=== PATIENT | male | born 1975 | race Caucasian/White ===

== ENCOUNTER 2016-11-27 23:44 | Inpatient (IN) | payer MEDICAID, OTHER ==
[~2016-11-27] VITALS: Ht 180.3 cm; Wt 63.2 kg
[~2016-11-27 23:44] MED LIST: COLL30OI3 TOP; DRON2.5 PO; ERGO50000 PO; IBUP800 PO; KPHOSO PO; MEGE40TA PO; THERM PO; THIA100T PO; ZOFR4TAB PO
[2016-11-27 23:48] VITALS: BP 113/58; PULSE 101; RESP 18; TEMP 96.3; O2SAT 100
[2016-11-27] MEDS ORDERED: SODIUM CHLOR 0.9% 1000 ML INJ 1,000 ML IV SCH (23:51)
[2016-11-28] VITALS (13 sets, daily range): BP systolic 83–136; BP diastolic 57–71; PULSE 90–112; RESP 18–26; TEMP 98.4–99.2; O2SAT 93–100
[2016-11-28] MEDS ORDERED: THIAMINE INJ 100 MG in SODIUM CHLORIDE 0.9% INJ 100 ML IV ONE ×2
[2016-11-28] MEDS ORDERED: METF500T PO (00:03)
[2016-11-28] MEDS ORDERED: ZOFR4TAB PO (00:03)
--- NOTE | 2016-11-28 00:05 | PD ---
HPI Chief Complaint: General Weakness Time Seen by Provider: 23:51 Travel History International Travel<30 days: No Contact w/Intl Traveler<30days: No Traveled to known affect area: No History of Present Illness HPI 41-year-old male arrives to the ER by EMS. Mother reports pt has been forgetful for 3 days both long and short-term. Mother reports the patient has not been eating food and not taking medications. He attempted to stand shortly prior to arrival and felt prompting EMS activation. In the ER he complains of generalized abdominal pain as well as pain in the hips. Pain is constant and worse with palpation. Mother denies illicit drug use at home. PFSH Past Medical History Arthritis: Yes Asthma: No Autoimmune Disease: No Blood Disorders: No Anxiety: No Depression: Yes Heart Rhythm Problems: No Cancer: No Cardiovascular Problems: Yes High Cholesterol: Yes Chemotherapy: No Chest Pain: Yes Congestive Heart Failure: Yes COPD: No Cerebrovascular Accident: No Diabetes: Yes Patient Takes Glucophage: No Diminished Hearing: No Endocrine: Yes Fibromyalgia: Yes Gastrointestinal Disorders: Yes GERD: Yes Gout: Yes Genitourinary: Yes Headaches: No Hepatitis: Yes Hiatal Hernia: No Hypertension: Yes Immune Disorder: No Implanted Vascular Access Dvce: Yes Kidney Stones: Yes (removed) Medical other: Yes (anorexia) Musculoskeletal: Yes Neurologic: Yes Psychiatric: Yes Reproductive: Yes (vasectomy) Respiratory: Yes Immunizations Current: Yes Migraines: No Radiation Therapy: No Renal Failure: No Seizures: No Sickle Cell Disease: No Sleep Apnea: No Thyroid Disease: No Ulcer: No Past Surgical History Abdominal Surgery: Yes (RIGHT NEPHROLITHOTRIPSY, J TUBE ) AICD: No Arteriovenous Shunt: No Body Medical Devices: LEFT HIP SURGERY Cardiac Surgery: No Ear Surgery: No Endocrine Surgery: No Eye Surgery: No Genitourinary Surgery: Yes (VASECTOMY) Gynecologic Surgery: No Insulin Pump: No Joint Replacement: Yes (LEFT HIP CURTIS/PIN) Neurologic Surgery: No Oral Surgery: No Pacemaker: No Thoracic Surgery: No Other Surgery: Yes (previously had peg tube) Social History Alcohol Use: Yes (occassionally) Tobacco Use: No Substance Use: Yes (cocaine) Allergies-Medications (Allergen,Severity, Reaction): Coded Allergies: No Known Allergies (Verified , 04/11/16) Reported Meds & Prescriptions Reported Meds & Active Scripts Active Reported Zofran (Ondansetron HCl) 4 Mg Tab 4 Mg PO Q6HR PRN Metformin (Metformin HCl) 500 Mg Tab 500 Mg PO BIDPC With meals Review of Systems Except as stated in HPI: all other systems reviewed are Neg Physical Exam Narrative GENERAL: 41 yo M, thin/cachectic, AOx3 SKIN: Warm and dry. HEAD: Atraumatic. Normocephalic. EYES: Pupils equal and round. No scleral icterus. No injection or drainage. ENT: No nasal bleeding or discharge. Mucous membranes pink and moist. Dried blood in the mustache. NECK: Trachea midline. No JVD. CARDIOVASCULAR: Regular rate and rhythm. No murmur appreciated. RESPIRATORY: No accessory muscle use. Clear to auscultation. Breath sounds equal bilaterally. GASTROINTESTINAL: Depends with liquid stool. Some dry stool along the legs. Generalized abdominal tenderness. No distension or guarding. MUSCULOSKELETAL: Generalized atrophy about the extremities. No gross deformity. NEUROLOGICAL: Awake and alert. No obvious cranial nerve deficits. Motor grossly within normal limits. Normal speech. PSYCHIATRIC: Flat affect. Cachectic. Data Data Last Documented VS Vital Signs Date Time Temp Pulse Resp B/P Pulse Ox O2 Delivery O2 Flow Rate FiO2 11/28/16 02:34 90 26 83/57 100 Nasal Cannula 2 11/27/16 23:48 96.3 Orders Complete Blood Count With Diff (11/27/16 23:51) Comprehensive Metabolic Panel (11/27/16 23:51) Urinalysis - C+S If Indicated (11/27/16 23:51) Blood Glucose (11/27/16 23:51) Ecg Monitoring (11/27/16 23:51) Iv Access Insert/Monitor (11/27/16 23:51) Oximetry (11/27/16 23:51) Sodium Chloride 0.9% Flush (Ns Flush) (11/28/16 00:00) Sodium Chlor 0.9% 1000 Ml Inj (Ns 1000 M (11/27/16 23:51) Thiamine Inj (Thiamine Inj) (11/28/16 00:00) C Diff Toxin Pcr (11/27/16 23:51) Insert Rectal Tube (11/28/16 00:51) Sodium Chlor 0.9% 1000 Ml Inj (Ns 1000 M (11/28/16 01:00) Ciprofloxacin 400 Mg Premix (Cipro 400 M (11/28/16 01:00) Metronidazole 500 Mg Inj (Flagyl 500 Mg (11/28/16 01:00) Drug Screen, Random Urine (11/28/16 00:52) Lactic Acid (11/28/16 00:52) Blood Culture (11/28/16 00:52) Creatine Kinase (Cpk) (11/28/16 00:54) Ct Abd/Pel W/O Iv Contrast (11/28/16 00:54) Blood Product Administration .UPON TRANSFUSION (11/28/16 01:21) Urinary Catheter Insert/Apply (11/28/16 01:52) Troponin I (11/28/16 02:42) Electrocardiogram (11/28/16 ) Cefepime Inj (Maxipime Inj) (11/28/16 03:01) Norepinephrine-Dextrose Drip (Levophed-D (11/28/16 03:15) Chest, Single Ap (11/28/16 ) Admit Order (Ed Use Only) (11/28/16 03:36) Labs Laboratory Tests Test 11/28/16 11/28/16 11/28/16 11/28/16 00:10 00:25 01:07 02:05 White Blood Count 10.6 TH/MM3 Red Blood Count 2.70 MIL/MM3 Hemoglobin 7.5 GM/DL Hematocrit 22.1 % Mean Corpuscular Volume 81.7 FL Mean Corpuscular Hemoglobin 27.9 PG Mean Corpuscular Hemoglobin 34.2 % Concent Red Cell Distribution Width 14.3 % Platelet Count 141 TH/MM3 Mean Platelet Volume 9.0 FL Neutrophils (%) (Auto) 77.3 % Lymphocytes (%) (Auto) 19.2 % Monocytes (%) (Auto) 2.1 % Eosinophils (%) (Auto) 0.6 % Basophils (%) (Auto) 0.8 % Neutrophils # (Auto) 8.2 TH/MM3 Lymphocytes # (Auto) 2.0 TH/MM3 Monocytes # (Auto) 0.2 TH/MM3 Eosinophils # (Auto) 0.1 TH/MM3 Basophils # (Auto) 0.1 TH/MM3 CBC Comment DIFF FINAL Differential Comment Sodium Level 128 MEQ/L Potassium Level 4.2 MEQ/L Chloride Level 96 MEQ/L Carbon Dioxide Level 15.6 MEQ/L Anion Gap 16 MEQ/L Blood Urea Nitrogen 20 MG/DL Creatinine 1.55 MG/DL Estimat Glomerular Filtration 49 ML/MIN Rate Random Glucose 204 MG/DL Calcium Level 8.0 MG/DL Total Bilirubin 1.0 MG/DL Aspartate Amino Transf 15 U/L (AST/SGOT) Alanine Aminotransferase 10 U/L (ALT/SGPT) Alkaline Phosphatase 124 U/L Total Protein 6.3 GM/DL Albumin 2.8 GM/DL Stool C. difficile Toxin (PCR) NEGATIVE Stl C. difficile Toxin PRESUMPTIVE Epiderm 027 NEGATIVE Lactic Acid Level 4.8 mmol/L Urine Color ORANGE Urine Turbidity CLEAR Urine pH 5.5 Urine Specific [place] 1.019 Urine Protein 30 mg/dL Urine Glucose (UA) TRACE mg/dL Urine Ketones NEG mg/dL Urine Occult Blood NEG Urine Nitrite NEG Urine Bilirubin NEG Urine Urobilinogen 4.0 MG/DL Urine Leukocyte Esterase NEG Urine WBC 2 /hpf Urine Hyaline Casts 17 /lpf Urine Granular Casts 4 /lpf Urine Mucus FEW /lpf Microscopic Urinalysis Comment CATH-CULT NOT IND Urine Opiates Screen POS Urine Barbiturates Screen NEG Urine Amphetamines Screen NEG Urine Benzodiazepines Screen NEG Urine Cocaine Screen POS Urine Cannabinoids Screen POS Test 11/28/16 03:15 Total Creatine Kinase 111 U/L MDM Medical Decision Making Medical Screen Exam Complete: Yes Emergency Medical Condition: Yes Differential Diagnosis Sepsis, severe sepsis, failure to thrive, coronary disease, anemia, PSA Narrative Course CBC & BMP Diagram 11/28/16 00:10 Lactic acid 4.8 Total CK 111 Albumin 2.8 AG 16 Tox +cannbinoids/opioids/cocaine Stool C diff negative EKG sinus rate 90, artifact present Last 24 hours Impressions Abdomen/Pelvis CT 11/28/16 0054 Signed Impressions: Service Date/Time: Monday, November 28, 2016 01:47 - CONCLUSION: Severe constipation. No acute CT findings. Kan Lyons MD Chest X-Ray 11/28/16 0000 Signed Impressions: Service Date/Time: Monday, November 28, 2016 03:24 - CONCLUSION: No acute disease. Kan Lyons MD A flexi-seal rectal tube was placed. Patient received 4 L crystalloid. 83/57 with HR 90 and RR 26, 100% on NC. Levophed started. Cefepime added to cipro/ flagyl. Temp 96.3 Jared hugger started. Case d/w Dr Loyola for [employer] Service. Critical Care Narrative Aggregate critical care time was 45 minutes. Time to perform other separately billable procedures was not included in the critical care time. My time did not include minutes spent treating any other patients simultaneously or on activities that did not directly contribute to the patient's treatment. The services I provided to this patient were to treat and/or prevent clinically significant deterioration that could result in: Cardiopulmonary arrest, multiorgan dysfunction I provided critical care services requiring my management, as noted below: Chart data review, documentation time, medication orders and management, vital sign assessments/reviewing monitor data, ordering and reviewing lab tests, ordering and interpreting/reviewing x-rays and diagnostic studies, care of the patient and discussion of the patient with the admitting physicians. Sepsis Criteria SIRS Criteria (2 or more): Temp > 100.9 or < 96.8, Heart rate over 90 Sepsis Criteria (SIRS+source): Infect source susp/known Severe Sepsis (+one): Lactate >2 Septic Shock Criteria: Lactic acid >=4 Diagnosis Primary Impression: Septic shock Additional Impressions: Cocaine abuse Polysubstance abuse Diarrhea Qualified Code: A09 - Diarrhea of presumed infectious origin Admitting Information Admitting Physician Requests: Admit Rocael Covington MD Nov 28, 2016 00:05
[2016-11-28] MEDS: SODIUM CHLORIDE 0.9% FLUSH 5 ML FLUSH IVF PRN ×2 (00:30→01:19)
[2016-11-28 00:40] LABS: AUTOMATED NEUTROPHIL # 8.2 TH/MM3 (1.8-7.7); BASOPHIL # 0.1 TH/MM3 (0-0.2); BASOPHIL % 0.8 % (0.0-2.0); EOSINOPHIL # 0.1 TH/MM3 (0-0.4); EOSINOPHIL % 0.6 % (0.0-4.0); HEMATOCRIT 22.1 % (39.0-51.0); HEMO FLAGS DIFF FINAL; LYMPH % 19.2 % (9.0-44.0); MEAN CELL VOLUME 81.7 FL (80.0-100.0); MEAN CORPUSCULAR HEMOGLOBIN 27.9 PG (27.0-34.0); MEAN CORPUSCULAR HGB CONC 34.2 % (32.0-36.0); MONO % 2.1 % (0.0-8.0); NEUT % 77.3 % (16.0-70.0); PLATELET COUNT 141 TH/MM3 (150-450); RED CELL DISTRIBUTION WIDTH 14.3 % (11.6-17.2); WHITE BLOOD COUNT 10.6 TH/MM3 (4.0-11.0)
[2016-11-28 00:52] LABS: ALT (GPT) 10 U/L (12-78); ANION GAP 16 MEQ/L (5-15); AST (GOT) 15 U/L (15-37); BICARBONATE 15.6 MEQ/L (21.0-32.0); BLOOD UREA NITROGEN 20 MG/DL (7-18); CHLORIDE 96 MEQ/L (98-107); GLOMERULAR FILTRATION RATE 49 ML/MIN (>89); POTASSIUM 4.2 MEQ/L (3.5-5.1); SODIUM (NA) 128 MEQ/L (136-145)
[2016-11-28 00:54] LABS: ALKALINE PHOSPHATASE 124 U/L (45-117)
[2016-11-28] MEDS ORDERED: metroNIDAZOLE 500 MG INJ 100 ML IV ONE (01:00)
[2016-11-28] MEDS ORDERED: CIPROFLOXACIN 400 MG PREMIX 200 ML IV ONE (01:00)
[2016-11-28] MEDS ORDERED: SODIUM CHLOR 0.9% 1000 ML INJ 1,000 ML IV ONE (01:00)
[2016-11-28 01:57] LABS: C. DIFF EPI 027 PRESUMPTIVE NEGATIVE (NEGATIVE); C. DIFF TOXIN PCR NEGATIVE (NEGATIVE)
[2016-11-28 02:20] LABS: AMPHETAMINE, URINE NEG (NEG); BARBITURATES, URINE NEG (NEG); COCAINE, URINE POS (NEG)
--- NOTE | 2016-11-28 02:21 | RADRPT ---
EXAM DATE/TIME: 11/28/2016 01:47 [facility] COMPARISON: CT ABDOMEN & PELVIS W CONTRAST, March 04, 2016, 12:20. INDICATIONS : Generalized weakness and weight loss. ORAL CONTRAST: No oral contrast ingested. RADIATION DOSE: 7.25 CTDIvol (mGy) MEDICAL HISTORY : Cardiovascular disease. Congestive heart failure. Diabetes mellitus type 2. SURGICAL HISTORY : Left hip. Peg tube. Right lithotripsy. Vasectomy. ENCOUNTER: Initial ACUITY: 1 day PAIN SCALE: 6/10 LOCATION: Diffuse abdomen TECHNIQUE: Volumetric scanning of the abdomen and pelvis was performed. Using automated exposure control and ad justment of the mA and/or kV according to patient size, radiation dose was kept as low as reasonably achievable to obtain optimal diagnostic quality images. FINDINGS: LOWER LUNGS: The visualized lower lungs are clear. LIVER: Homogeneous density without lesion. There is no dilation of the biliary tree. No calcified gallston es. SPLEEN: Normal size without lesion. PANCREAS: Within normal limits. KIDNEYS: Normal in size and shape. There is no mass, stone, or hydronephrosis. ADRENAL GLANDS: Within normal limits. VASCULAR: There is no aortic aneurysm. BOWEL/MESENTERY: The majority of the distal colon is distended with formed stool. There is nonspecific induration in t he paracolic fatty tissues. The small bowel is nondilated. ABDOMINAL WALL: Within normal limits. RETROPERITONEUM: There is no lymphadenopathy. BLADDER: No wall thickening or mass. REPRODUCTIVE: Within normal limits. INGUINAL: There is no lymphadenopathy or hernia. MUSCULOSKELETAL: Stable CONCLUSION: Severe constipation. No acute CT findings. Kan Lyons MD on November 28, 2016 at 2:13 Board Certified Radiologist. This report was verified electronically.
[2016-11-28 02:23] LABS: BLOOD, URINE NEG (NEG); COMMENT (UR) CATH-CULT NOT IND; CULTURE IF INDICATED CATH CULTURE NOT IND; GLUCOSE,URINE TRACE mg/dL (NEG); GRANULAR CAST, URINE 4 /lpf; HYALINE CAST, URINE 17 /lpf (RARE); KETONE, URINE NEG (NEG); MUCUS URINE FEW /lpf (OCC); NITRITE,URINE NEG (NEG); PH, URINE 5.5 (5.0-8.5); URINE COLOR ORANGE (YELLW/STRAW)
[2016-11-28] MEDS ORDERED: CEFEPIME INJ 2,000 MG in SODIUM CHLORIDE 0.9% INJ 100 ML IV STA (03:01)
[2016-11-28] MEDS: NOREPINEPHRINE-DEXTROSE DRIP 250 ML IV SCH (03:34)
--- NOTE | 2016-11-28 03:47 | RADRPT ---
EXAM DATE/TIME: 11/28/2016 03:24 [facility] COMPARISON: CHEST SINGLE AP, March 08, 2016, 7:40. INDICATIONS : Shortness of breath. MEDICAL HISTORY : Cardiovascular disease. Congestive heart failure. Diabetes mellitus type II. SURGICAL HISTORY : None. ENCOUNTER: Initial ACUITY: 1 day PAIN SCORE: Non-responsive. LOCATION: Bilateral chest FINDINGS: A single view of the chest demonstrates the lungs to be symmetrically aerated without evidence of mas s, infiltrate or effusion. The cardiomediastinal contours are unremarkable. Osseous structures are intact. CONCLUSION: No acute disease. Kan Lyons MD on November 28, 2016 at 3:44 Board Certified Radiologist. This report was verified electronically.
--- NOTE | 2016-11-28 04:29 | HHI.HP ---
HPI Service Critical Care Medicine Primary Care Physician No Primary Care Physician Admission Diagnosis PSA, Septic Shock Diagnosis: Chief Complaint: forgetfulness, fall Travel History International Travel<30 Days: No Contact w/Intl Traveler <30 Da: No Traveled to Known Affected Are: No History of Present Illness This is a 41-year-old male with a number of chronic medical problems including fibromyalgia, failure to thrive, who is brought in by EMS for falling, fatigue, altered mental status. His mother is with him and reports that over the last few days to even a week or 2, he has had both long-term and short-term memory loss. Mom states that he is not been eating or taking his medications. On arrival to the emergency department, he had 5 or 6 very large and very loose bowel movements which were brown in color. These percent off and tested negative for C. difficile DNA PCR. The patient was very tachycardic and hypotensive as well as hypothermic in the emergency department. He received 4 L of normal saline IV and was started on norepinephrine. His laboratory data is notable for a lactate of 4.8, sodium 128, chloride 96, bicarbonate 15, creatinine 1.55, hemoglobin of 7.5, white blood cell count of 10.5. His random cortisol is 47. Critical-care medicine's consult to evaluate and manage his presumed septic shock and multiorgan system dysfunction. Review of Systems ROS Limitations: Clinical Condition, Altered Mental Status Respiratory: DENIES: Cough, Shortness of breath Cardiovascular: DENIES: Chest pain Gastrointestinal: COMPLAINS OF: Diarrhea, DENIES: Abdominal pain, Nausea, Vomiting Past Family Social History Allergies: Coded Allergies: No Known Allergies (Verified , 04/11/16) Past Medical History Complete past medical history is unobtainable secondary to patient's clinical condition. Per chart review: Arthritis Coronary artery disease Hypercholesterolemia Congestive heart failure, unknown type Fibromyalgia GERD Gout Hepatitis Hypertension Kidney stones Anorexia Past Surgical History Complete past surgical history is unobtainable secondary to patient's clinical condition. Per chart review: Right nephrolithotripsy with J-tube placement Left hip surgery Vasectomy Previous PEG tube placement Reported Medications Zofran (Ondansetron HCl) 4 Mg Tab 4 Mg PO Q6HR PRN Metformin (Metformin HCl) 500 Mg Tab 500 Mg PO BIDPC With meals Active Ordered Medications See MAR Family History Unobtainable secondary to patient's clinical condition. Not likely to be contributory to his acute illness. Social History Complete social history is unobtainable secondary to patient's clinical condition. Per chart review: Occasional EtOH. Positive for cocaine. Physical Exam Vital Signs Vital Signs Date Time Temp Pulse Resp B/P Pulse Ox O2 Delivery O2 Flow Rate FiO2 11/28/16 03:51 102 18 103/61 100 Nasal Cannula 11/28/16 02:34 90 26 83/57 100 Nasal Cannula 2 11/27/16 23:48 96.3 101 18 113/58 100 Physical Exam GENERAL: Critically ill, cachectic middle-aged male, lying in bed HEENT:. Normocephalic. Atraumatic. Pupils equal, round and reactive. Mucous membranes are dry. NECK: Trachea is midline. There is no JVD. CHEST: Equal chest rise. Clear to auscultation. CARDIOVASCULAR: Tachycardic rate, regular rhythm. No appreciable murmurs. ABDOMEN: Scaphoid. There is a small healed scar subxiphoid from prior PEG tube placement. Otherwise, the abdomen is soft, nontender, nondistended. There is no guarding. No hepatosplenomegaly. MUSCULOSKELETAL: Distal pulses 2+. No pitting Edema. NEUROLOGICAL: RASS -1. Somnolent but arousable. Follows commands in all 4 extremities. Laboratory Laboratory Tests Test 11/28/16 11/28/16 11/28/16 11/28/16 00:10 00:25 01:07 02:05 White Blood Count 10.6 Red Blood Count 2.70 Hemoglobin 7.5 Hematocrit 22.1 Mean Corpuscular Volume 81.7 Mean Corpuscular Hemoglobin 27.9 Mean Corpuscular Hemoglobin 34.2 Concent Red Cell Distribution Width 14.3 Platelet Count 141 Mean Platelet Volume 9.0 Neutrophils (%) (Auto) 77.3 Lymphocytes (%) (Auto) 19.2 Monocytes (%) (Auto) 2.1 Eosinophils (%) (Auto) 0.6 Basophils (%) (Auto) 0.8 Neutrophils # (Auto) 8.2 Lymphocytes # (Auto) 2.0 Monocytes # (Auto) 0.2 Eosinophils # (Auto) 0.1 Basophils # (Auto) 0.1 CBC Comment DIFF FINAL Differential Comment Sodium Level 128 Potassium Level 4.2 Chloride Level 96 Carbon Dioxide Level 15.6 Anion Gap 16 Blood Urea Nitrogen 20 Creatinine 1.55 Estimat Glomerular Filtration 49 Rate Random Glucose 204 Calcium Level 8.0 Total Bilirubin 1.0 Aspartate Amino Transf 15 (AST/SGOT) Alanine Aminotransferase 10 (ALT/SGPT) Alkaline Phosphatase 124 Total Protein 6.3 Albumin 2.8 Stool C. difficile Toxin (PCR) NEGATIVE Stl C. difficile Toxin PRESUMPTIVE Epiderm 027 NEGATIVE Lactic Acid Level 4.8 Urine Color ORANGE Urine Turbidity CLEAR Urine pH 5.5 Urine Specific [place] 1.019 Urine Protein 30 Urine Glucose (UA) TRACE Urine Ketones NEG Urine Occult Blood NEG Urine Nitrite NEG Urine Bilirubin NEG Urine Urobilinogen 4.0 Urine Leukocyte Esterase NEG Urine WBC 2 Urine Hyaline Casts 17 Urine Granular Casts 4 Urine Mucus FEW Microscopic Urinalysis Comment CATH-CULT NOT IND Urine Opiates Screen POS Urine Barbiturates Screen NEG Urine Amphetamines Screen NEG Urine Benzodiazepines Screen NEG Urine Cocaine Screen POS Urine Cannabinoids Screen POS Test 11/28/16 03:15 Total Creatine Kinase 111 Date/Time Procedure Status Source Growth 11/28/16 01:05 Aerobic Blood Culture Received Blood Peripheral Pending 11/28/16 01:05 Anaerobic Blood Culture Received Blood Peripheral Pending Result Diagram: 11/28/16 0010 11/28/16 0010 Assessment and Plan Assessment and Plan Assessment: This is a 41-year-old male with a history of failure to thrive who presents with multiple acute on chronic medical problems including kidney injury , septic shock, diarrhea, possible colitis. He is very critically ill this time. We will admit him to the ICU and monitor him carefully. We will empirically cover him with antibiotics and await culture data. Certainly seems given the patient is on room air that a pulmonary source is unlikely. Is much more likely the patient has an intra-abdominal source, possible colitis. Certainly given his amount of stool in his colon, the diarrhea could be postobstructive. His hypothermia is concerning. Plan by systems: Neurologic: Metabolic encephalopathy q1h neurochecks Avoid long-acting sedating meds Respiratory: Atelectasis Wean oxygen by nasal cannula for goal SPO2 greater than 92% Incentive spirometer to bedside Cardiovascular: Sinus tachycardia Septic shock Status post 4 L normal saline. MIVF LR @ 200cc/hr --critical care bedside ultrasound 11/28: poor acoustic windows. grossly preserved biventricular function with moderately collapsable IVC with quiet respiration. --trend lactate --continue norepinephrine for goal map > 65mmHg. Renal: Acute Kidney Injury --place german, q1h uop, strict i/o's --may be multifactorial, including pre-renal secondary to shock -- Strict I/Os FEN/GI: Acute protein calorie malnutrition- severe Hypomagnesemia Acute intravascular volume depletion Severe Dehydration Hyponatremia Severe Diarrhea Lactic Acidosis --NPO --ICU electrolyte protocol --daily BMP --likely hypovolemic hyponatremia secondary to severe diarrhea --continue mivf as above. --trend lactate --if lactate is not downtrending, will consider repeat CT abd/pelvis with IV contrast to look for ischemic bowel. Heme/ID: Septic Shock Anemia, likely secondary to chronic disease --f/u blood, sputum, urine cultures --continue Cefepime 1gm iv q8h --continue Flagyl 500mg iv q6h --Colitis is the most likely source at this point --1 unit prbc now given hemodynamic instability --recheck hgb --daily CBC Endocrine: Hyperglycemia of Critical Illness Hypothermia -- SSI, medium scale, q6h --random cortisol 47, unlikely to be adrenal insufficiency --aggressive warming with BairHugger. Prophylaxis: GI Prophylaxis Protonix 40 mg IV every 24 hours DVT Prophylaxis -- SCDs SQH 5000 q12h Lines: [place] Will likely need central venous access for vasopressor Dispo: Admit to the ICU. He remains critically ill. This patient remains critically ill with one or more organ systems which are or may become a threat to life. I have spent in excess of 55 minutes discontinuously in the care and management of this patient. This time is exclusive of procedures, and includes, but is not limited to, evaluation of the patient, review of the medical record, discussions with family, consultants, nursing staff, or respiratory therapy, and documentation in the medical record. Code Status Full Code Discussed Condition With bedside RN, ER physician, mother at bedside. Jeremie Loyola MD Nov 28, 2016 04:29
[2016-11-28] MEDS ORDERED: POTASSIUM PHOSPHATE MONOBASIC 500 MG TAB PO PRN (04:30)
[2016-11-28] MEDS ORDERED: MAGNESIUM OXIDE 400 MG TAB PO PRN (04:30)
[2016-11-28] MEDS ORDERED: DEXTROSE 50% IN WATER 50 ML VIAL(D50) IV PUSH PRN (04:30)
[2016-11-28] MEDS ORDERED: POTASSIUM CHLOR 40 MEQ PREMIX 100 ML IV PRN ×2 (04:30)
[2016-11-28] MEDS ORDERED: POTASSIUM PHOSPHATE MONOBASIC 500 MG TAB PO/TUBE PRN (04:30)
[2016-11-28] MEDS ORDERED: MAGNESIUM SULFATE INJ 4 GM in SODIUM CHLORIDE 0.9% INJ 92 ML IV PRN (04:30)
[2016-11-28] MEDS ORDERED: ONDANSETRON HCL 4 MG/2 ML VIAL IV PRN (04:30)
[2016-11-28] MEDS ORDERED: CHLORHEXIDINE GLUCONATE 2 % 1 PACK (2 CLOTHS) TOP PRN (04:30)
[2016-11-28] MEDS ORDERED: POTASSIUM CL 40 MEQ/30 ML LIQ UDC PO/TUBE PRN ×2 (04:30)
[2016-11-28] MEDS ORDERED: SODIUM CHLORIDE 0.9% FLUSH 5 ML FLUSH IV FLUSH PRN (04:30)
[2016-11-28] MEDS ORDERED: MISCELLANEOUS NURSING INFORMATION XX SCH (04:30)
[2016-11-28] MEDS ORDERED: SODIUM PHOSPHATE INJ 30 MMOL in SODIUM CHLOR 0.9% 250 ML INJ 240 ML IV PRN (04:30)
[2016-11-28] MEDS ORDERED: POTASSIUM PHOSPHATE INJ 30 MMOL in SODIUM CHLOR 0.9% 250 ML INJ 250 ML IV PRN (04:30)
[2016-11-28] MEDS ORDERED: MAGNESIUM SULFATE INJ 2 GM in SODIUM CHLORIDE 0.9% INJ 96 ML IV PRN (04:30)
[2016-11-28] MEDS ORDERED: POTASSIUM CHLOR 20 MEQ PREMIX 100 ML IV PRN ×2 (04:30)
[2016-11-28] MEDS: SODIUM CHLOR 0.9% 1000 ML INJ 1,000 ML IV SCH ×3 (05:11→20:34)
[2016-11-28] MEDS: HEPARIN SODIUM - SQ 10,000 UNITS/ML VIAL SQ SCH ×2 (05:11→17:15)
[2016-11-28] MEDS: LACTATED RINGER'S 1000 ML INJ 1,000 ML IV SCH ×2 (05:15→19:21)
[2016-11-28 05:21] LABS: FREE T4 1.2 NG/DL (0.76-1.46)
[2016-11-28 05:28] LABS: MAGNESIUM 1.1 MG/DL (1.5-2.5)
[2016-11-28] MEDS ORDERED: SODIUM CHLOR 0.9% 250 ML INJ 250 ML IV ONE (06:45)
[2016-11-28] MEDS: DOCUSATE SODIUM 50 MG/SENNA 8.6 MG TAB PO SCH ×2 (09:00→20:29)
[2016-11-28] MEDS: metroNIDAZOLE 500 MG INJ 100 ML IV SCH ×3 (09:49→20:28)
[2016-11-28] MEDS: PANTOPRAZOLE SODIUM 40 MG VIAL IV SCH (09:49)
[2016-11-28] MEDS: SODIUM CHLORIDE 0.9% FLUSH 5 ML FLUSH IV FLUSH SCH ×2 (09:50→20:29)
--- NOTE | 2016-11-28 10:38 | EKG ---
Date Performed: 11/28/2016 Time Performed: 03:05:43 PTAGE: 41 years EKG: NORMAL Sinus rhythm MARKED BASELINE [employer] MAKES THIS SUBSTANDARD FOR INTERPREATION SUSPECT NONSPECIFIC ST-T WAVE YODER GES ARE NEW FROM THE OLD TRACING BUT [employer] MAKES THIS DIFFICULT ABNORMAL ECG PREVIOUS TRACING : 03/31/2016 11.59 DOCTOR: Abraham Gomez Interpretating Date/Time 11/28/2016 10:38:18
--- NOTE | 2016-11-28 11:03 | PD.CONS ---
HPI History of Present Illness This is a 41 year old male with extreme cachexia , bad historian, DM, HTN, CAD , fibromyalgia, failure to thrive, who was brought by EMS for multiple falls, fatigue, and AMS. GI services consulted for diarrhea, abdominal pain. Patient reports one day history of diarrhea, this is non bloody. He reports abdominal pain bilateral upper quad that comes and goes for few months, however upon physical examination he was screaming of pain upon palpation of RLQ. Stools negative for C-diff. Labs revealed hgb of 7.5, lactic acid of 4.8. Per EMR, patient have been confused and having both long and short term memory. No previous EGD/colonoscopy reported. He reports wt loss of over 30 ibs over few months. He denies nausea, vomiting, hematemesis, hematochezia or melena. CT Severe constipation. No acute CT findings. (Guido Nevarez) PFSH Past Medical History Per EMR, patient is bad historian Arthritis DM Coronary artery disease Hypercholesterolemia Congestive heart failure, unknown type Fibromyalgia GERD Gout Hepatitis Hypertension Kidney stones Anorexia Past Surgical History Per EMR patient is very bad historian Right nephrolithotripsy with J-tube placement Left hip surgery Vasectomy Previous PEG tube placement (Guido Nevarez) Coded Allergies: No Known Allergies (Verified , 04/11/16) Medications Current Medications Medications (Trade) Dose Ordered Sig/Abbi Route Start Time Stop Time Status Last Admin (Levophed-Dextrose Drip) 250 ml @ 0 mls/hr TITRATE IV 11/28/16 03:15 11/28/16 03:34 Magnesium Oxide 800 mg 800 mg UNSCH PRN PO 11/28/16 04:30 Magnesium Sulfate 4 gm/Sodium Chloride 100 ml @ 50 mls/hr UNSCH PRN IV 11/28/16 04:30 Magnesium Sulfate 2 gm/Sodium Chloride 100 ml @ 50 mls/hr UNSCH PRN IV 11/28/16 04:30 Potassium Chloride 100 ml @ 50 mls/hr Q2H PRN IV 11/28/16 04:30 Potassium Chloride 100 ml @ 50 mls/hr Q2H PRN IV 11/28/16 04:30 Potassium Chloride 100 ml @ 50 mls/hr Q2H PRN IV 11/28/16 04:30 (KCl 40 Meq Premix Inj) 100 ml @ 25 mls/hr UNSCH PRN IV 11/28/16 04:30 (KCl 40 Meq/30 ml Liq) 40 meq UNSCH PRN PO/TUBE 11/28/16 04:30 (KCl 40 Meq/30 ml Liq) 40 meq UNSCH PRN PO/TUBE 11/28/16 04:30 (K-Phos) 2,000 mg Q4H PRN PO 11/28/16 04:30 Potassium Phosphate 2000 mg 2,000 mg UNSCH PRN PO/TUBE 11/28/16 04:30 Potassium Phosphate 30 mmol/ Sodium Chloride 260 ml @ 42 mls/hr UNSCH PRN IV 11/28/16 04:30 (Sodium Phosphate Inj/NS 250 ml Inj) 250 ml @ 42 mls/hr UNSCH PRN IV 11/28/16 04:30 (D50w (Vial) Inj) 25 ml UNSCH PRN IV PUSH 11/28/16 04:30 Insulin Human Regular 1 1 Q6HR SQ 11/28/16 06:00 Lactated Ringer's 1,000 ml @ 200 mls/hr Q5H IV 11/28/16 04:21 11/28/16 05:15 (NS 1000 ml Inj) 1,000 ml @ 150 mls/hr Q6H40M IV 11/28/16 04:21 11/28/16 05:11 (NS Flush) 2 ml UNSCH PRN IV FLUSH 11/28/16 04:30 (NS Flush) 2 ml BID IV FLUSH 11/28/16 09:00 11/28/16 09:50 (Protonix Inj) 40 mg DAILY IV 11/28/16 09:00 11/28/16 09:49 (Zofran Inj) 4 mg Q6H PRN IV 11/28/16 04:30 (Elisha-Colace) 2 tab BID PO 11/28/16 09:00 (Heparin Inj) 5,000 units Q12H SQ 11/28/16 06:00 11/28/16 05:11 Miscellaneous Information 1 Q361D XX 11/28/16 04:30 (Chlorhexidine 2% Cloth) 3 pack Taper DAILY@04 TOP 11/29/16 04:00 11/25/17 03:59 Chlorhexidine Gluconate 3 pack 3 pack UNSCH PRN TOP 11/28/16 04:30 Cefepime HCl 1000 mg/Sodium Chloride 100 ml @ 200 mls/hr Q8H IV 11/28/16 12:00 Metronidazole 100 ml @ 100 mls/hr Q6H IV 11/28/16 10:00 11/28/16 09:49 (NS 250 ml Inj) 250 ml @ 15 mls/hr ONCE ONCE IV 11/28/16 06:45 11/28/16 23:24 Family History No family history of colon cancer Social History No alcohol No smoking occasional Marijuana and cocaine (Guido Nevarez) Review of Systems Constitutional: COMPLAINS OF: Chills, DENIES: Fever Endocrine: DENIES: Polyuria Eyes: DENIES: Double Vision Ears, nose, mouth, throat: DENIES: Hoarseness Respiratory: DENIES: Shortness of breath Cardiovascular: DENIES: Lower Extremity Edema Gastrointestinal: COMPLAINS OF: Abdominal pain, Diarrhea, Anorexia, DENIES: Black stools, Bloody stools, Constipation, Nausea, Vomiting, Difficulty Swallowing, Odynophagia, Swelling of Abdomen, Heartburn, Hematemesis Genitourinary: DENIES: Hematuria Musculoskeletal: DENIES: Joint pain Integumentary: DENIES: Jaundice Hematologic/lymphatic: DENIES: Bruising Immunologic/allergic: DENIES: Eczema Neurologic: DENIES: Abnormal gait Psychiatric: COMPLAINS OF: Confusion (Guido Nevarez) GI Exam Vitals I&O Vital Signs Date Time Temp Pulse Resp B/P Pulse Ox O2 Delivery O2 Flow Rate FiO2 11/28/16 06:42 99.2 112 20 136/66 93 11/28/16 05:16 111 18 110/71 100 Nasal Cannula 2 11/28/16 04:56 100 Nasal Cannula 2.00 11/28/16 03:51 102 18 103/61 100 Nasal Cannula 11/28/16 02:34 90 26 83/57 100 Nasal Cannula 2 11/27/16 23:48 96.3 101 18 113/58 100 Imaging Last Impressions Abdomen/Pelvis CT 11/28/16 0054 Signed Impressions: Service Date/Time: Monday, November 28, 2016 01:47 - CONCLUSION: Severe constipation. No acute CT findings. Kan Lyons MD Chest X-Ray 11/28/16 0000 Signed Impressions: Service Date/Time: Monday, November 28, 2016 03:24 - CONCLUSION: No acute disease. Kan Lyons MD Laboratory Test 11/28/16 11/28/16 11/28/16 11/28/16 00:10 00:25 01:07 02:05 White Blood Count 10.6 TH/MM3 Red Blood Count 2.70 MIL/MM3 Hemoglobin 7.5 GM/DL Hematocrit 22.1 % Mean Corpuscular Volume 81.7 FL Mean Corpuscular Hemoglobin 27.9 PG Mean Corpuscular Hemoglobin 34.2 % Concent Red Cell Distribution Width 14.3 % Platelet Count 141 TH/MM3 Mean Platelet Volume 9.0 FL Neutrophils (%) (Auto) 77.3 % Lymphocytes (%) (Auto) 19.2 % Monocytes (%) (Auto) 2.1 % Eosinophils (%) (Auto) 0.6 % Basophils (%) (Auto) 0.8 % Neutrophils # (Auto) 8.2 TH/MM3 Lymphocytes # (Auto) 2.0 TH/MM3 Monocytes # (Auto) 0.2 TH/MM3 Eosinophils # (Auto) 0.1 TH/MM3 Basophils # (Auto) 0.1 TH/MM3 CBC Comment DIFF FINAL Differential Comment Sodium Level 128 MEQ/L Potassium Level 4.2 MEQ/L Chloride Level 96 MEQ/L Carbon Dioxide Level 15.6 MEQ/L Anion Gap 16 MEQ/L Blood Urea Nitrogen 20 MG/DL Creatinine 1.55 MG/DL Estimat Glomerular Filtration 49 ML/MIN Rate Random Glucose 204 MG/DL Calcium Level 8.0 MG/DL Total Bilirubin 1.0 MG/DL Aspartate Amino Transf 15 U/L (AST/SGOT) Alanine Aminotransferase 10 U/L (ALT/SGPT) Alkaline Phosphatase 124 U/L Total Protein 6.3 GM/DL Albumin 2.8 GM/DL Stool C. difficile Toxin (PCR) NEGATIVE Stl C. difficile Toxin PRESUMPTIVE Epiderm 027 NEGATIVE Lactic Acid Level 4.8 mmol/L Urine Color ORANGE Urine Turbidity CLEAR Urine pH 5.5 Urine Specific [place] 1.019 Urine Protein 30 mg/dL Urine Glucose (UA) TRACE mg/dL Urine Ketones NEG mg/dL Urine Occult Blood NEG Urine Nitrite NEG Urine Bilirubin NEG Urine Urobilinogen 4.0 MG/DL Urine Leukocyte Esterase NEG Urine WBC 2 /hpf Urine Hyaline Casts 17 /lpf Urine Granular Casts 4 /lpf Urine Mucus FEW /lpf Microscopic Urinalysis Comment CATH-CULT NOT IND Urine Opiates Screen POS Urine Barbiturates Screen NEG Urine Amphetamines Screen NEG Urine Benzodiazepines Screen NEG Urine Cocaine Screen POS Urine Cannabinoids Screen POS Test 11/28/16 11/28/16 11/28/16 11/28/16 03:15 03:42 05:00 06:15 Total Creatine Kinase 111 U/L Phosphorus Level 2.7 MG/DL Magnesium Level 1.1 MG/DL Troponin I 0.02 NG/ML Free Thyroxine 1.20 NG/DL Thyroid Stimulating Hormone 2.190 uIU/ML 3rd Gen Random Cortisol 47.1 MCG/DL Lactic Acid Level 4.2 mmol/L Date/Time Procedure Status Source Growth 11/28/16 01:05 Aerobic Blood Culture Received Blood Peripheral Pending 11/28/16 01:05 Anaerobic Blood Culture Received Blood Peripheral Pending Physical Examination HEENT: Cachexia, normocephalic; atraumatic; no jaundice. NECK: Neck is supple, no JVD, no lymphadenopathy. CHEST: Chest is clear to auscultation and percussion. CARDIAC: Regular rate and rhythm with no murmur gallop or rubs. ABDOMEN: Soft, nondistended, extreme tenderness in RLQ; no hepatosplenomegaly; bowel sounds are present in all four quadrants. EXTREMITIES: No clubbing, cyanosis, or edema. SKIN: Normal; no rash; no jaundice. PRECISION LATHE OPERATOR: No focal deficits; alert and oriented times three. (Guido Nevarez) Assessment and Plan Plan - Abdominal pain more on RLQ, diarrhea ( negative for C-diff)- CT showed Severe constipation. No acute CT findings. - Constipation- on CT above, GI have been consulted for diarrhea, this is most likely leakage will order SSE and disimpact. - Anemia (normocytic, normochromic )- likely multifactorial, anemia of chronic dz vs GI bleed, no gi bleed reported, hgb 7.5, no previous EGD/colonoscopy - Failure to thrive/ wt loss- unknown etiology, patient states he has been eating, denies nausea or vomiting - Sepsis- Lactic acid of 4.8, WBC normal, blood cx pending, abx, ID consulted - Hyponatremia- Na 128 - AKF BUN 16, creat. 1.55, GFR 49 - Fibromyalgia/ HTN, CAD, DM per attending Plan: - Clear liquids - EGD/colonoscopy once electrolyte corrected - SSE X 2/ manual disimpaction - Monitor hh - Transfuse as needed - Cont. Flagyl - Patient seen and examined by Dr. Negro and myself and this note is written on his behalf. (Guido Nevarez) Physician Comments Seen and examined with FEATHEREDGE MACHINE OPERATOR, no active bleeding, significant abdominal pain and tenderness. EGD/Colonoscopy tomorrow, and General surgery consult. Needs disimpaction. Discussed with nurse. Will follow, thank you (Jeremy Negro MD) Guido Nevarez Nov 28, 2016 11:03 Jeremy Negro MD Nov 28, 2016 12:16
[2016-11-28] MEDS ORDERED: PEG (High)/E-LYTE SOLN 4000 ML BTL PO ONE (12:00)
[2016-11-28] MEDS: INSULIN NovoLIN REGULAR SUPPLEMENTAL SCALE SQ SCH ×3 (12:00→23:49)
[2016-11-28] MEDS: CEFEPIME INJ 1,000 MG in SODIUM CHLORIDE 0.9% INJ 100 ML IV SCH ×2 (17:15→20:28)
[2016-11-28] MEDS: ACETAMINOPHEN/HYDROcodone 325 MG/5 MG TAB PO PRN (17:23)
--- NOTE | 2016-11-28 17:37 | MB ---
cc: MALLORY COSTA MD DATE OF CONSULTATION 11/28/[address] Omer REASON FOR CONSULTATION Septic shock, diarrhea. HISTORY OF PRESENT ILLNESS This is a 41-year-old white male who presented to the emergency department with generalized weakness. The patient was noted becoming increasingly forgetful over the past days prior to admission and he was also becoming very weak and fell before being brought to the emergency department for evaluation. He was noted to be hypotensive in the emergency department and he was started on IV fluids and was admitted to the intensive care unit. His lactic acid level was elevated at 4.8. The patient was also put on Levophed. He is currently on 1 mcg. He is on antibiotics. He has been having diarrhea since admission. The patient has no fever. He denies chills, sweats, shortness of breath. He notes that he has aches and pains all over currently. He reports to me that he has been eating. His weight is 56.4 kg which is decreased from 67 kg in March 2016. White blood cell count is normal. The patient has difficulty with his teeth and most of the teeth have eroded away except for a few in the anterior aspect of the mouth. His sister and mother states that they have been feeding him puree type food. He states that his appetite has been good. CT scan of the abdomen showed severe constipation but no acute findings. The patient is due to undergo EGD/colonoscopy. Stool for C-difficile is negative. The patient is calm in no acute distress currently. PAST MEDICAL HISTORY 1. Diabetes mellitus reportedly improved after he lost a lot of weight 2. Arthritis, 3. Coronary artery disease, 4. Hypercholesteremia, 5. Congestive heart failure, 6. Fibromyalgia, 7. Gastroesophageal reflux disease, 8. Hepatitis, 9. Gout. 10. Hypertension, 11. kidney stones 12. History of left hip surgery, 13. History of right nephro lithotripsy and a J-tube stent 14. vasectomy. ALLERGIES NO KNOWN DRUG ALLERGIES. MEDICATIONS 1. Cefepime. 2. Metronidazole. 3. Protonix 4. Elisha-Colace. SOCIAL HISTORY No tobacco use. Occasional alcohol. Positive cocaine use. FAMILY HISTORY Significant for brain cancer in his maternal aunt and one grandfather had lung cancer. REVIEW OF SYSTEMS Pertinent as mentioned in the history of present illness. PHYSICAL EXAMINATION GENERAL: This is a cachectic male who is laying in bed and he is in no acute distress. He is awake, alert and oriented. VITAL SIGNS: Temperature of 99.1, BP 126/59 BP 117/72, heart rate 93, respirations 16. HEENT: Head is atraumatic. There is bitemporal wasting. Extraocular movements grossly intact, pupils reactive to light without icterus. Oropharynx no visible lesions. Erosive remaining teeth at the front upper and upper. No thrush. NECK: Supple without adenopathy. No swelling. LUNGS: Markedly diminished breath sounds HEART: Distant S1-S2 without audible murmurs, rubs or gallops. ABDOMEN: Flat, severe tenderness on palpation on both left lower and right lower quadrant. No hepatosplenomegaly. RECTAL: Not performed. EXTREMITIES: No clubbing, cyanosis or edema. Diffuse muscle wasting throughout. SKIN: No rash. NEUROLOGIC: Nonfocal. PSYCHIATRIC: The patient is calm and cooperative. LABORATORY DATA WBC 10.6, platelet count 141, 77% neutrophils, hemoglobin 7.5, creatinine 1.55, BUN 20, sodium 128, estimated GFR 49, AST 15, ALT 10, alk phos 124. C-difficile toxin negative. IMPRESSION 1. Septic shock. ? source - Possibly GI. 2. Diarrhea. 3. Severe protein calorie malnutrition. 4. History of constipation based on CT scan findings. RECOMMENDATIONS 1. Continue Flagyl. 2. Continue cefepime 3. Monitor blood cultures. 4. Obtain repeat HIV testing. Prior HIV testing was performed in March 2016 5. Send stools for ova and parasites and Cryptosporidium 6. Follow EGD/colonoscopy. Thank you this consultation. The patient's progress will be monitored and further recommendations will be given on followup. Mallory Costa MD FD/ /3:33 PM /5:09 PM [facility]
[2016-11-28 19:20] LABS: HEMATOCRIT 21.2 % (39.0-51.0)
[2016-11-28 19:21] LABS: REVIEW FLAG FINAL
[2016-11-29] VITALS (17 sets, daily range): BP systolic 106–139; BP diastolic 60–79; PULSE 76–91; RESP 16–31; TEMP 97.4–98.2; O2SAT 97–100
[2016-11-29] MEDS: LACTATED RINGER'S 1000 ML INJ 1,000 ML IV SCH ×2 (00:21→05:21)
[2016-11-29] MEDS: HYDROmorphone HCL PF 1 MG/ML VIAL IV PUSH PRN ×3 (01:04→11:39)
[2016-11-29] MEDS: ACETAMINOPHEN/HYDROcodone 325 MG/5 MG TAB PO PRN (02:32)
[2016-11-29] MEDS: CHLORHEXIDINE GLUCONATE 2 % 1 PACK (2 CLOTHS) TOP SCH (04:00)
[2016-11-29] MEDS: metroNIDAZOLE 500 MG INJ 100 ML IV SCH ×4 (04:05→22:31)
[2016-11-29] MEDS: CEFEPIME INJ 1,000 MG in SODIUM CHLORIDE 0.9% INJ 100 ML IV SCH ×3 (04:06→20:33)
[2016-11-29] MEDS: HEPARIN SODIUM - SQ 10,000 UNITS/ML VIAL SQ SCH (05:36)
[2016-11-29 05:41] LABS: MEAN CELL VOLUME 82.7 FL (80.0-100.0); MEAN CORPUSCULAR HEMOGLOBIN 27.9 PG (27.0-34.0); MEAN CORPUSCULAR HGB CONC 33.7 % (32.0-36.0); PLATELET COUNT 73 TH/MM3 (150-450); RED CELL DISTRIBUTION WIDTH 14.9 % (11.6-17.2); WHITE BLOOD COUNT 10.6 TH/MM3 (4.0-11.0)
[2016-11-29] MEDS: INSULIN NovoLIN REGULAR SUPPLEMENTAL SCALE SQ SCH ×3 (05:41→18:00)
[2016-11-29 05:51] LABS: REVIEW FLAG FINAL
[2016-11-29] MEDS: SODIUM CHLOR 0.9% 1000 ML INJ 1,000 ML IV SCH ×2 (05:58→20:21)
[2016-11-29 06:11] LABS: BICARBONATE 17.2 MEQ/L (21.0-32.0); POTASSIUM 3.4 MEQ/L (3.5-5.1)
[2016-11-29 06:26] LABS: CALCIUM-PROTEIN CORRECTED 8.4 MG/DL (8.5-10.1)
[2016-11-29] MEDS: PANTOPRAZOLE SODIUM 40 MG VIAL IV SCH (08:34)
[2016-11-29] MEDS: SODIUM CHLORIDE 0.9% FLUSH 5 ML FLUSH IV FLUSH SCH ×2 (08:35→20:33)
[2016-11-29] MEDS: DOCUSATE SODIUM 50 MG/SENNA 8.6 MG TAB PO SCH ×2 (08:35→20:33)
--- NOTE | 2016-11-29 09:13 | HHI.CCPN ---
Subjective Remarks/Hospital Course This is a 41-year-old male with a number of chronic medical problems including fibromyalgia, failure to thrive, who is brought in by EMS for falling, fatigue, altered mental status. His mother is with him and reports that over the last few days to even a week or 2, he has had both long-term and short-term memory loss. Mom states that he is not been eating or taking his medications. On arrival to the emergency department, he had 5 or 6 very large and very loose bowel movements which were brown in color. These percent off and tested negative for C. difficile DNA PCR. The patient was very tachycardic and hypotensive as well as hypothermic in the emergency department. He received 4 L of normal saline IV and was started on norepinephrine. His laboratory data is notable for a lactate of 4.8, sodium 128, chloride 96, bicarbonate 15, creatinine 1.55, hemoglobin of 7.5, white blood cell count of 10.5. His random cortisol is 47. Critical-care medicine's consult to evaluate and manage his presumed septic shock and multiorgan system dysfunction. SUBJ 11/29/16: Currently weaned off Levophed, but lactic acid remains high yesterday. GI was consulted for abdominal pain/tenderness. Colonoscopy and EGD planned for today by Dr. Brian. General surgery also consulted- intervention based on endoscopy findings. Abdominal pain is improved. Repeat Lactic acid pending Objective Vital Signs Date Time Temp Pulse Resp B/P Pulse Ox O2 Delivery O2 Flow Rate FiO2 11/29/16 07:36 99 11/29/16 06:00 81 11/29/16 04:00 97.5 18 134/72 11/28/16 18:00 21 11/28/16 05:16 Nasal Cannula 2 Intake and Output 11/28/16 11/28/16 11/29/16 08:00 16:00 00:00 Intake Total 1236 ml 2308 ml Output Total 650 ml Balance 1236 ml 1658 ml Result Diagram: 11/29/16 0328 11/29/16 0328 Objective Remarks GENERAL: Critically ill, cachectic middle-aged male, lying in bed. Pale HEENT:. Normocephalic. Atraumatic. Pupils equal, round and reactive. Mucous membranes are dry. NECK: Trachea is midline. There is no JVD. CHEST: Equal chest rise. Clear to auscultation. CARDIOVASCULAR: Regular rhythm. No appreciable murmurs. ABDOMEN: Small healed scar subxiphoid from prior PEG tube placement. Diffuse tenderness to palpation. There is no guarding. No hepatosplenomegaly. MUSCULOSKELETAL: Distal pulses 2+. No pitting Edema. NEUROLOGICAL: Alert awake oriented. Follows commands in all 4 extremities. Urinary Catheter: Yes Assessment to: Continue A/P Assessment and Plan Assessment: This is a 41-year-old male with a history of failure to thrive who presents with multiple acute on chronic medical problems including kidney injury , septic shock, diarrhea, possible colitis. He is very critically ill this time , and descending obstruction has to be ruled out. We will admit him to the ICU and monitor him carefully. We will empirically cover him with antibiotics and await culture data. Gi, general surgery and ID following Plan by systems: Neurologic: Metabolic encephalopathy q1h neurochecks Avoid long-acting sedating meds Respiratory: Atelectasis Wean oxygen by nasal cannula for goal SPO2 greater than 92% Incentive spirometer to bedside Cardiovascular: Sinus tachycardia Septic shock-resolved Status post 4 L normal saline. MIVF LR @ 200cc/hr-reduce to 100 ml per hour --critical care bedside ultrasound 11/28: poor acoustic windows. grossly preserved biventricular function with moderately collapsable IVC with quiet respiration. --trend lactate-today pending --Off norepinephrine Renal: Acute Kidney Injury --Mancia, q1h uop, strict i/o's --may be multifactorial, including pre-renal secondary to shock --Strict I/Os FEN/GI: Diarrhea Lactic Acidosis Severe constipation on CT with abdominal pain and lactic acidosis, R/o obstruction, mass Acute protein calorie malnutrition- severe Hypomagnesemia Acute intravascular volume depletion Severe Dehydration Hyponatremia --NPO. EGD colonoscopy today. Gi and general surgery following --ICU electrolyte protocol. daily BMP --likely hypovolemic hyponatremia secondary to severe diarrhea --continue mivf as above. --if lactate is not downtrending, will consider repeat CT abd/pelvis with IV contrast to look for ischemic bowel. Heme/ID: Septic Shock resolved Anemia, likely secondary to chronic disease --f/u blood, sputum, urine cultures --continue Cefepime 1gm iv q8h, continue Flagyl 500mg iv q6h --Colitis is the most likely source at this point --1 unit prbc now given hemodynamic instability --recheck hgb --daily CBC Endocrine: Hyperglycemia of Critical Illness Hypothermia -- SSI, medium scale, q6h --random cortisol 47, unlikely to be adrenal insufficiency --aggressive warming with BairHugger-now off Prophylaxis: GI Prophylaxis Protonix 40 mg IV every 24 hours DVT Prophylaxis -- SCDs SQH 5000 a05m-tcha due to thrombocytopenia Lines: Mancia Will likely need central venous access for vasopressor Dispo: He remains critically ill. Continue ICU care This patient remains critically ill with one or more organ systems which are or may become a threat to life. I have spent in excess of 35 minutes discontinuously in the care and management of this patient. This time is exclusive of procedures, and includes, but is not limited to, evaluation of the patient, review of the medical record, discussions with family, consultants, nursing staff, or respiratory therapy, and documentation in the medical record. Angela Omer MD Nov 29, 2016 09:13
[2016-11-29] MEDS ORDERED: PROPOFOL 200 MG/20 ML AMP IV ONE (09:50)
[2016-11-29] MEDS ORDERED: DO NOT ADM ANY ANTICOAGULANT DRUGS XX PRN (10:30)
--- NOTE | 2016-11-29 11:17 | MB ---
cc: SHIV AMIN MD DATE OF CONSULTATION: 11/28/2016 REASON FOR CONSULTATION Abdominal pain, constipation, rule out stercoral ulcer. HISTORY OF PRESENT ILLNESS The patient is a 41-year-old male with multiple medical issues who presented with severe abdominal pain. The patient was noted by EMS to have fatigue, failure to thrive, altered mental status and complaining of constant pain, severe abdominal pain. The patient had further workup including hemoglobin of 7.5, lactate of 4.[address] scan showing dilated colon with significant constipation and stool retention. He has also had significant weight loss. Surgery consulted for severe abdominal pain and further evaluation. On my exam the patient is resting more comfortably in the ICU. He has gotten 1 unit of blood with improvement in his hemoglobin and he states his pain is somewhat improved with IV pain medications, although still significant. The pain did start approximately 24 hours ago, was diffuse, crampy and sharp, intermittently and has gotten worse but now has improved since being in the hospital. He has not had pain this severe in the past but he has had several admissions for other reasons. The patient is currently having diarrhea with Flexi-Seal in place. He has no fevers and denies any nausea or vomiting. He has had over 30 pounds weight loss in the last few months. PAST MEDICAL HISTORY 1. Arthritis. 2. Diabetes. 3. Coronary artery disease. 4. Hypercholesteremia. 5. CHF. 6. Fibromyalgia. 7. Reflux. 8. Gout. 9. Hepatitis. 10. Hypertension. 11. Kidney stones. 12. Anorexia. PAST SURGICAL HISTORY 1. Right nephro-lithotripsy. 2. Right hip surgery. 3. PEG tube placement. 4. EGD and colonoscopy. ALLERGIES NO KNOWN DRUG ALLERGIES. MEDICATIONS See EMR. FAMILY HISTORY No history of cancers or hypertension. SOCIAL HISTORY Denies ETOH or smoking. Positive cocaine and marijuana. REVIEW OF SYSTEMS GENERAL: Denies fevers, complained of chills. HEENT: Denies eye pain, ear pain or vision changes. RESPIRATORY: Denies shortness of breath or cough. CARDIOVASCULAR: Denies palpitations or tachycardia. GI: Complains of abdominal pain, diarrhea and constipation. : Denies dysuria, hematuria. MUSCULOSKELETAL: Denies arthralgias, myalgias. INTEGUMENT: Denies jaundice. HEMATOLOGIC: Denies easy bruising or lesions. NEUROLOGIC: Denies change in gait or numbness. PSYCHE: Complained of confusion, altered mental status. PHYSICAL EXAMINATION GENERAL: The patient is in no acute distress. VITAL SIGNS: Temperature 98.4, pulse 92, blood pressure 97/63, 99% on 2 liters. HEENT: PERRLA, EOMI. NECK: Supple. Trachea midline. HEART: S1-S2, regular rhythm. LUNGS: Bilateral expansion. No wheeze. ABDOMEN: Scaphoid, cachectic. Positive tenderness to palpation, diffuse, no significant rebound or peritoneal signs, worse tenderness to palpation on the right, more than left. Well-healed incisional scars. EXTREMITIES: Thin, cachectic, 2+ pulses all extremities. Moving all extremities. NEUROLOGIC: GCS of 14, no numbness. : Within normal limits, Mancia. INTEGUMENT: Dry, no significant bruises. LABORATORY DIAGNOSTIC DATA WBC 10.6, hemoglobin 7.5, hematocrit 22.1, platelets 141. Sodium 128, potassium 4.2, chloride 96, BUN 20, creatinine 1.5, lactate 4.8, AST 15, ALT 10, alkaline phosphatase 124, albumin 2.8. Toxicology positive cocaine, positive cannabinoids THC, positive opiates. IMAGING STUDIES CT abdomen and pelvis reviewed by myself, severe dilated colon with severe significant stool load and constipation and no evidence of free air, no free fluid. ASSESSMENT A 41-year-old male with multiple medical issues, history of failure to thrive. The patient with significant abdominal pain, very large stool load with constipation. PLAN After full radiologic, clinical, laboratory data workup, the patient with above-named complaints. The patient appears to be severely constipated. He currently has a Flexi-Seal in place with stool in bag and evidence of liquidy stool. He is significantly tender however, he does not have peritoneal signs and operative abdomen at this point. GI is on consultation and currently evaluating and planning for EGD and colonoscopy in the morning. I agree with this, I agree with continued Flexi-Seal and stool softeners. The patient may need some sort of digital disimpaction if no improvement or unable to do colonoscopy. Further the patient may benefit from cathartics, enemas and irrigation. At this point the patient does not appear to have a stercoral ulcer. Surgery will continue to follow current nonoperative management and serial abdominal exams. If the patient appears to get worse clinically, will consider operative intervention. Again, otherwise will continue to follow. For the patient's hemoglobin agree with transfusion, continue fluids and resuscitation and ICU treatment. MD VONNIE Castañeda/KALYN /10:03 AM /10:21 AM [facility]
[2016-11-29] MEDS: BISACODYL 10 MG SUPP RECTAL SCH (11:37)
--- NOTE | 2016-11-29 13:47 | HHI.IDPN ---
Note Infectious Disease Note Patient is confused but alert and responsive. Notes pain in rectum. Has rectal bag in place. Loose stools. Afebrile. D/W RN. This is a 41-year-old white male who presented to the emergency department with generalized weakness. The patient was noted becoming increasingly forgetful over the past days prior to admission and he was also becoming very weak and fell before being brought to the emergency department for evaluation. He was noted to be hypotensive in the emergency department and he was started on IV fluids and was admitted to the intensive care unit. His lactic acid level was elevated at 4.8. The patient was also put on Levophed. He has been having diarrhea since admission. PAST MEDICAL HISTORY 1. Diabetes mellitus reportedly improved after he lost a lot of weight 2. Arthritis, 3. Coronary artery disease, 4. Hypercholesteremia, 5. Congestive heart failure, 6. Fibromyalgia, 7. Gastroesophageal reflux disease, 8. Hepatitis, 9. Gout. 10. Hypertension, 11. kidney stones 12. History of left hip surgery, 13. History of right nephro lithotripsy and a J-tube stent 14. vasectomy. ALLERGIES NO KNOWN DRUG ALLERGIES. MEDICATIONS Current Medications Medications (Trade) Dose Ordered Sig/Abbi Route PRN Reason Start Time Stop Time Status Last Admin Dose Admin Norepinephrine Bitartrate (Levophed-Dextrose Drip) 250 ml @ 0 mls/hr TITRATE IV 11/28/16 03:15 11/28/16 03:34 Magnesium Oxide 800 mg 800 mg UNSCH PRN PO For Magnesium 1.2 - 1.6 mg/dL 11/28/16 04:30 Magnesium Sulfate 4 gm/Sodium Chloride 100 ml @ 50 mls/hr UNSCH PRN IV For Magnesium 0.9 - 1.1 mg/dL 11/28/16 04:30 Magnesium Sulfate 2 gm/Sodium Chloride 100 ml @ 50 mls/hr UNSCH PRN IV For Magnesium 1.2 - 1.6 mg/dL 11/28/16 04:30 Potassium Chloride 100 ml @ 50 mls/hr Q2H PRN IV For Potassium 2.8 - 3.2 mEq/L 11/28/16 04:30 Potassium Chloride 100 ml @ 50 mls/hr Q2H PRN IV For Potassium 3.3 - 3.5 mEq/L 11/28/16 04:30 Potassium Chloride 100 ml @ 50 mls/hr Q2H PRN IV For Potassium 2.8 - 3.2 mEq/L 11/28/16 04:30 Potassium Chloride (KCl 40 Meq Premix Inj) 100 ml @ 25 mls/hr UNSCH PRN IV For Potassium 3.3 - 3.5 mEq/L 11/28/16 04:30 Potassium Chloride (KCl 40 Meq/30 ml Liq) 40 meq UNSCH PRN PO/TUBE For Potassium 3.3 - 3.5 mEq/L 11/28/16 04:30 Potassium Chloride (KCl 40 Meq/30 ml Liq) 40 meq UNSCH PRN PO/TUBE SEE LABEL COMMENTS 11/28/16 04:30 Potassium Phosphate (K-Phos) 2,000 mg Q4H PRN PO For Phosphorus < 2.5 mg/dL 11/28/16 04:30 Potassium Phosphate 2000 mg 2,000 mg UNSCH PRN PO/TUBE SEE LABEL COMMENTS 11/28/16 04:30 Potassium Phosphate 30 mmol/ Sodium Chloride 260 ml @ 42 mls/hr UNSCH PRN IV SEE LABEL COMMENTS 11/28/16 04:30 Sodium Phosphate/ Sodium Chloride (Sodium Phosphate Inj/NS 250 ml Inj) 250 ml @ 42 mls/hr UNSCH PRN IV For Phosphorus < 2.5 mg/dL 11/28/16 04:30 Dextrose (D50w (Vial) Inj) 25 ml UNSCH PRN IV PUSH HYPOGLYCEMIA-SEE COMMENTS 11/28/16 04:30 Insulin Human Regular 1 1 Q6HR SQ 11/28/16 06:00 Lactated Ringer's 1,000 ml @ 200 mls/hr Q5H IV 11/28/16 04:21 11/28/16 05:15 Sodium Chloride (NS 1000 ml Inj) 1,000 ml @ 150 mls/hr Q6H40M IV 11/28/16 04:21 11/28/16 20:34 IV Flush (NS Flush) 2 ml UNSCH PRN IV FLUSH FLUSH AFTER USING IV ACCESS 11/28/16 04:30 IV Flush (NS Flush) 2 ml BID IV FLUSH 11/28/16 09:00 11/29/16 08:35 Pantoprazole Sodium (Protonix Inj) 40 mg DAILY IV 11/28/16 09:00 11/29/16 08:34 Ondansetron HCl (Zofran Inj) 4 mg Q6H PRN IV NAUSEA OR VOMITING 11/28/16 04:30 Senna/Docusate Sodium (Elisha-Colace) 2 tab BID PO 11/28/16 09:00 Heparin Sodium (Porcine) (Heparin Inj) 5,000 units Q12H SQ 11/28/16 06:00 11/28/16 05:11 Miscellaneous Information 1 Q361D XX 11/28/16 04:30 Chlorhexidine Gluconate (Chlorhexidine 2% Cloth) 3 pack Taper DAILY@04 TOP 11/29/16 04:00 11/25/17 03:59 11/29/16 04:00 Chlorhexidine Gluconate 3 pack 3 pack UNSCH PRN TOP HYGIENIC CARE 11/28/16 04:30 Cefepime HCl 1000 mg/Sodium Chloride 100 ml @ 200 mls/hr Q8H IV 11/28/16 12:00 11/29/16 11:38 Metronidazole (Flagyl 500 Mg Inj) 100 ml @ 100 mls/hr Q6H IV 11/28/16 10:00 11/29/16 08:34 Acetaminophen/ Hydrocodone Bitart (Union 5-325 Mg) 1 tab Q4H PRN PO PAIN 1-10 11/28/16 17:30 11/29/16 02:32 Hydromorphone HCl (Dilaudid Pf Inj) 0.5 mg Q4H PRN IV PUSH pain 6-10 or not taking po 11/29/16 01:00 11/29/16 11:39 Bisacodyl (Dulcolax Supp) 20 mg DAILY RECTAL 11/29/16 10:30 11/29/16 11:37 Miscellaneous Information ALL NURSING DEPARTME... UNSCH PRN XX SEE LABEL COMMENTS 11/29/16 10:30 11/30/16 10:29 SOCIAL HISTORY No tobacco use. Occasional alcohol. Positive cocaine use. FAMILY HISTORY Significant for brain cancer in his maternal aunt and one grandfather had lung cancer. REVIEW OF SYSTEMS Pertinent as mentioned in the history of present illness. OBJ: Vital Signs Date Time Temp Pulse Resp B/P Pulse Ox O2 Delivery O2 Flow Rate FiO2 11/29/16 10:30 78 16 130/78 97 Room Air 11/29/16 10:15 73 16 117/73 97 Room Air 11/29/16 10:08 97.7 76 16 119/69 98 Room Air 11/29/16 07:36 99 11/29/16 06:00 81 11/29/16 04:00 97.5 83 18 134/72 100 11/29/16 04:00 83 11/29/16 03:00 97.5 84 16 135/69 100 11/29/16 02:00 83 11/29/16 01:26 97.5 83 19 125/62 100 11/29/16 01:11 97.4 91 24 109/70 100 11/29/16 00:00 89 11/29/16 00:00 97.4 89 31 106/69 100 11/28/16 22:00 91 11/28/16 20:00 98.4 90 21 97/63 99 11/28/16 20:00 90 11/28/16 18:00 92 11/28/16 18:00 98 21 11/28/16 16:00 92 11/28/16 16:00 98.6 95 118/68 95 11/28/16 14:00 93 11/28/16 11/28/16 11/29/16 15:00 23:00 07:00 Intake Total 1236 ml 2308 ml 1288 ml Output Total 650 ml 1900 ml Balance 1236 ml 1658 ml -612 ml Intake Oral 1680 ml 240 ml IV Total 1236 ml 628 ml 1048 ml Output Urine Total 250 ml 200 ml Stool Total 400 ml 1700 ml Laboratory Tests Test 11/28/16 11/28/16 11/29/16 00:10 18:53 03:28 White Blood Count 10.6 TH/MM3 10.6 TH/MM3 Red Blood Count 2.70 MIL/MM3 2.90 MIL/MM3 Hemoglobin 7.5 GM/DL 7.2 GM/DL 8.1 GM/DL Hematocrit 22.1 % 21.2 % 24.0 % Mean Corpuscular Volume 81.7 FL 82.7 FL Mean Corpuscular Hemoglobin 27.9 PG 27.9 PG Mean Corpuscular Hemoglobin 34.2 % 33.7 % Concent Red Cell Distribution Width 14.3 % 14.9 % Platelet Count 141 TH/MM3 73 TH/MM3 Mean Platelet Volume 9.0 FL 8.9 FL Neutrophils (%) (Auto) 77.3 % Lymphocytes (%) (Auto) 19.2 % Monocytes (%) (Auto) 2.1 % Eosinophils (%) (Auto) 0.6 % Basophils (%) (Auto) 0.8 % Neutrophils # (Auto) 8.2 TH/MM3 Lymphocytes # (Auto) 2.0 TH/MM3 Monocytes # (Auto) 0.2 TH/MM3 Eosinophils # (Auto) 0.1 TH/MM3 Basophils # (Auto) 0.1 TH/MM3 CBC Comment DIFF FINAL Differential Comment Laboratory Tests Test 11/28/16 11/28/16 11/28/16 11/28/16 00:10 01:07 03:15 03:42 Sodium Level 128 MEQ/L Potassium Level 4.2 MEQ/L Chloride Level 96 MEQ/L Carbon Dioxide Level 15.6 MEQ/L Anion Gap 16 MEQ/L Blood Urea Nitrogen 20 MG/DL Creatinine 1.55 MG/DL Estimat Glomerular Filtration 49 ML/MIN Rate Random Glucose 204 MG/DL Calcium Level 8.0 MG/DL Total Bilirubin 1.0 MG/DL Aspartate Amino Transf 15 U/L (AST/SGOT) Alanine Aminotransferase 10 U/L (ALT/SGPT) Alkaline Phosphatase 124 U/L Total Protein 6.3 GM/DL Albumin 2.8 GM/DL Lactic Acid Level 4.8 mmol/L Total Creatine Kinase 111 U/L Phosphorus Level 2.7 MG/DL Magnesium Level 1.1 MG/DL Troponin I 0.02 NG/ML Free Thyroxine 1.20 NG/DL Thyroid Stimulating Hormone 2.190 uIU/ML 3rd Gen Test 11/28/16 11/28/16 11/29/16 05:00 06:15 03:28 Random Cortisol 47.1 MCG/DL Lactic Acid Level 4.2 mmol/L Sodium Level 136 MEQ/L Potassium Level 3.4 MEQ/L Chloride Level 106 MEQ/L Carbon Dioxide Level 17.2 MEQ/L Anion Gap 13 MEQ/L Blood Urea Nitrogen 20 MG/DL Creatinine 1.16 MG/DL Estimat Glomerular Filtration 69 ML/MIN Rate Random Glucose 135 MG/DL Calcium Level 7.4 MG/DL Protein Corrected Calcium 8.4 MG/DL Total Protein 5.3 GM/DL Microbiology Date/Time Procedure Status Source Growth 11/28/16 00:25 Received Stool Stool Pending 11/28/16 00:25 Cryptosporidium Exam Received Stool Stool Pending 11/28/16 00:25 Giardia Antigen (ANGELIQUE) Received Stool Stool Pending 11/28/16 01:00 Aerobic Blood Culture - Preliminary Resulted Blood Peripheral NO GROWTH IN 1 DAY 11/28/16 01:00 Anaerobic Blood Culture - Preliminary Resulted Blood Peripheral NO GROWTH IN 1 DAY 11/28/16 01:05 Aerobic Blood Culture - Preliminary Resulted Blood Peripheral NO GROWTH IN 1 DAY 11/28/16 01:05 Anaerobic Blood Culture - Preliminary Resulted Blood Peripheral NO GROWTH IN 1 DAY HIV - Negative. IMAGING; Abdomen/Pelvis CT 11/28/16 0054 Signed Impressions: Service Date/Time: Monday, November 28, 2016 01:47 - CONCLUSION: Severe constipation. No acute CT findings. Kan Lyons MD Chest X-Ray 11/28/16 0000 Signed Impressions: Service Date/Time: Monday, November 28, 2016 03:24 - CONCLUSION: No acute disease. Kan Lyons MD PHYSICAL EXAMINATION GENERAL: No acute distress. He is awake, alert and oriented. HEENT: Head is atraumatic. There is bitemporal wasting. Extraocular movements grossly intact, pupils reactive to light without icterus. Oropharynx no visible lesions. Erosive remaining teeth at the front upper and lower. upper . No thrush. NECK: Supple without adenopathy. No swelling. LUNGS: Markedly diminished breath sounds HEART: Distant S1-S2 without audible murmurs, rubs or gallops. ABDOMEN: Flat, severe diffuse tenderness on palpation. No hepatosplenomegaly. EXTREMITIES: No clubbing, cyanosis or edema. Diffuse muscle wasting throughout. SKIN: No rash. NEUROLOGIC: Nonfocal. PSYCHIATRIC: The patient is calm and cooperative. IMPRESSION 1. Septic shock. 2. Diarrhea. 3. Severe protein calorie malnutrition. 4. History of constipation based on CT scan findings. RECOMMENDATIONS 1. Continue Flagyl. 2. Continue cefepime 3. Monitor blood cultures. 4. Send stools for ova and parasites and Cryptosporidium 5. Follow EGD/colonoscopy. Wilber Nunez MD Nov 29, 2016 13:47
[2016-11-30] VITALS (14 sets, daily range): BP systolic 137–171; BP diastolic 78–92; PULSE 72–102; RESP 14–22; TEMP 96.8–98.9; O2SAT 95–99
[2016-11-30] MEDS: INSULIN NovoLIN REGULAR SUPPLEMENTAL SCALE SQ SCH ×4 (01:35→18:00)
[2016-11-30] MEDS: SODIUM CHLOR 0.9% 1000 ML INJ 1,000 ML IV SCH ×4 (03:01→23:01)
[2016-11-30] MEDS: CHLORHEXIDINE GLUCONATE 2 % 1 PACK (2 CLOTHS) TOP SCH (04:00)
[2016-11-30] MEDS: CEFEPIME INJ 1,000 MG in SODIUM CHLORIDE 0.9% INJ 100 ML IV SCH ×3 (04:09→20:00)
[2016-11-30] MEDS: metroNIDAZOLE 500 MG INJ 100 ML IV SCH ×4 (04:10→23:06)
[2016-11-30 05:32] LABS: AUTOMATED NEUTROPHIL # 5.8 TH/MM3 (1.8-7.7); BASOPHIL % 0.2 % (0.0-2.0); EOSINOPHIL % 0.5 % (0.0-4.0); LYMPH % 10.9 % (9.0-44.0); LYMPHOCYTE # 0.8 TH/MM3 (1.0-4.8); MEAN CELL VOLUME 80.3 FL (80.0-100.0); MEAN CORPUSCULAR HEMOGLOBIN 27.8 PG (27.0-34.0); MEAN CORPUSCULAR HGB CONC 34.6 % (32.0-36.0); MONO % 4.3 % (0.0-8.0); NEUT % 84.1 % (16.0-70.0); PLATELET COUNT 74 TH/MM3 (150-450); RED BLOOD COUNT 2.58 MIL/MM3 (4.50-5.90); RED CELL DISTRIBUTION WIDTH 15.2 % (11.6-17.2); WHITE BLOOD COUNT 6.9 TH/MM3 (4.0-11.0)
[2016-11-30 05:58] LABS: CALCIUM-PROTEIN CORRECTED 8.5 MG/DL (8.5-10.1); MAGNESIUM 1.3 MG/DL (1.5-2.5); TOTAL BILIRUBIN ADULT 0.6 MG/DL (0.2-1.0)
[2016-11-30 06:00] LABS: POTASSIUM 2.9 MEQ/L (3.5-5.1)
[2016-11-30 06:07] LABS: HEMO FLAGS AUTO DIFF
[2016-11-30 06:09] LABS: HEMATOCRIT 20.7 % (39.0-51.0)
--- NOTE | 2016-11-30 06:09 | RADRPT ---
EXAM DATE/TIME: 11/30/2016 04:05 [facility] COMPARISON: CHEST SINGLE AP, November 28, 2016, 3:24. INDICATIONS : Shortness of breath, possible pulmonary disease. MEDICAL HISTORY : Cardiovascular disease. Congestive heart failure. Diabetes mellitus type II. SURGICAL HISTORY : None. ENCOUNTER: Subsequent ACUITY: 3 days PAIN SCORE: Non-responsive. LOCATION: Bilateral chest FINDINGS: There is developing perihilar infiltrate on the right. Cardiomediastinal contours are stable. CONCLUSION: Developing right lung infiltrate. Kan Lyons MD on November 30, 2016 at 6:07 Board Certified Radiologist. This report was verified electronically.
[2016-11-30] MEDS: LACTATED RINGER'S 1000 ML INJ 1,000 ML IV SCH ×2 (06:34→23:14)
--- NOTE | 2016-11-30 07:59 | HHI.PR ---
Subjective Remarks In bed eating breakfast. Says pain is controlled by meds. No n/v/d/c. Alert and oriented x name , , Castro. No fever or chills. Objective Vitals Vital Signs Date Time Temp Pulse Resp B/P Pulse Ox O2 Delivery O2 Flow Rate FiO2 11/30/16 06:00 72 11/30/16 04:00 76 11/30/16 04:00 98.1 76 15 137/79 98 11/30/16 02:00 74 11/30/16 00:00 98.2 80 14 137/78 98 11/30/16 00:00 80 11/29/16 22:00 83 11/29/16 20:00 76 11/29/16 20:00 98.0 76 16 134/79 97 11/29/16 19:47 97 11/29/16 18:00 81 11/29/16 16:00 98.2 81 20 135/73 11/29/16 16:00 80 11/29/16 14:00 81 11/29/16 12:00 98.1 81 18 121/65 11/29/16 12:00 88 11/29/16 10:45 90 11/29/16 10:30 78 16 130/78 97 Room Air 11/29/16 10:15 73 16 117/73 97 Room Air 11/29/16 10:08 97.7 76 16 119/69 98 Room Air 11/29/16 08:00 84 11/29/16 08:00 98.1 84 16 139/60 99 I/O 11/29/16 11/29/16 11/29/16 11/30/16 11/30/16 11/30/16 07:00 15:00 23:00 07:00 15:00 23:00 Intake Total 1288 ml 1476 ml 632 ml 1049 ml Output Total 1900 ml 1700 ml 1650 ml 300 ml Balance -612 ml -224 ml -1018 ml 749 ml Intake Oral 240 ml 240 ml 240 ml 240 ml IV Total 1048 ml 1236 ml 392 ml 809 ml Output Urine Total 200 ml 200 ml 150 ml 300 ml Stool Total 1700 ml 1500 ml 1500 ml # Bowel Movements 1 Result Diagram: 11/30/16 0349 11/30/16 034 Imaging Last Impressions Chest X-Ray 11/30/16 0600 Signed Impressions: Service Date/Time: November 04:05 - CONCLUSION: Developing right lung infiltrate. Kan Lyons MD Abdomen/Pelvis CT 11/28/16 0054 Signed Impressions: Service Date/Time: Monday, November 28, 2016 01:47 - CONCLUSION: Severe constipation. No acute CT findings. Kan Lyons MD Objective Remarks GENERAL: Critically ill, cachectic middle-aged male, lying in bed. Pale HEENT:. Normocephalic. Atraumatic. Pupils equal, round and reactive. Mucous membranes are dry. NECK: Trachea is midline. There is no JVD. CHEST: Equal chest rise. Clear to auscultation. CARDIOVASCULAR: Regular rhythm. No appreciable murmurs. ABDOMEN: Small healed scar subxiphoid from prior PEG tube placement. Diffuse tenderness to palpation. There is no guarding. No hepatosplenomegaly. MUSCULOSKELETAL: Distal pulses 2+. No pitting Edema. NEUROLOGICAL: Alert awake oriented. Follows commands in all 4 extremities. A/P Assessment and Plan Assessment: This is a 41-year-old male with a history of failure to thrive who presents with multiple acute on chronic medical problems including kidney injury , septic shock, diarrhea, possible colitis. He is very critically ill this time , and descending obstruction has to be ruled out. We will admit him to the ICU and monitor him carefully. We will empirically cover him with antibiotics and await culture data. Gi, general surgery and ID following Plan by systems: Neurologic: Metabolic encephalopathy q1h neurochecks Avoid long-acting sedating meds Respiratory: Atelectasis Wean oxygen by nasal cannula for goal SPO2 greater than 92% Incentive spirometer to bedside Cardiovascular: Sinus tachycardia Septic shock-resolved Status post 4 L normal saline. MIVF LR @ 200cc/hr-reduce to 100 ml per hour --critical care bedside ultrasound 11/28: poor acoustic windows. grossly preserved biventricular function with moderately collapsable IVC with quiet respiration. --trend lactate-today pending --Off norepinephrine Renal: Acute Kidney Injury --Mancia, q1h uop, strict i/o's --may be multifactorial, including pre-renal secondary to shock --Strict I/Os FEN/GI: Diarrhea Lactic Acidosis Severe constipation on CT with abdominal pain and lactic acidosis, R/o obstruction, mass Acute protein calorie malnutrition- severe Hypomagnesemia Acute intravascular volume depletion Severe Dehydration Hyponatremia --S/P EGD colonoscopy 11/29. GI and general surgery following --ICU electrolyte protocol. daily BMP --likely hypovolemic hyponatremia secondary to severe diarrhea --continue mivf as above. --if lactate is not downtrending, will consider repeat CT abd/pelvis with IV contrast to look for ischemic bowel. Heme/ID: Septic Shock resolved Anemia, likely secondary to chronic disease --f/u blood, sputum, urine cultures --continue Cefepime 1gm iv q8h, continue Flagyl 500mg iv q6h --Colitis is the most likely source at this point --1 unit prbc now given hemodynamic instability --recheck hgb --daily CBC Endocrine: Hyperglycemia of Critical Illness Hypothermia -- SSI, medium scale, q6h --random cortisol 47, unlikely to be adrenal insufficiency --aggressive warming with BairHugger-now off Prophylaxis: GI Prophylaxis Protonix 40 mg IV every 24 hours DVT Prophylaxis -- SCDs SQH 5000 [id number] due to thrombocytopenia Lines: Mancia Will likely need central venous access for vasopressor Dispo: Improving, will consider stepping down from ICU. Mary Chiang MD Nov 30, 2016 07:59
[2016-11-30] MEDS: SODIUM CHLORIDE 0.9% FLUSH 5 ML FLUSH IV FLUSH SCH ×2 (08:27→23:07)
[2016-11-30] MEDS: BISACODYL 10 MG SUPP RECTAL SCH (08:27)
[2016-11-30] MEDS: PANTOPRAZOLE SODIUM 40 MG VIAL IV SCH (08:27)
[2016-11-30] MEDS: DOCUSATE SODIUM 50 MG/SENNA 8.6 MG TAB PO SCH ×2 (08:27→21:00)
[2016-11-30 08:33] LABS: PLATELET ESTIMATE SMEAR LOW (NORMAL); PLATELET MORPHOLOGY ENLARGED (NORMAL); SCAN/DIFF AUTO DIFF CONFIRMED
[2016-11-30 08:34] LABS: ACANTHOCYTES OCC (NORMAL)
--- NOTE | 2016-11-30 10:41 | HHI.PR ---
Subjective Subjective Notes Resting in bed Ate breakfast without any problems Does not remember how long he has been in the hospital---feels like "he's been here forever" Objective Vitals/I&O Vital Signs Date Time Temp Pulse Resp B/P Pulse Ox O2 Delivery O2 Flow Rate FiO2 11/30/16 06:00 72 11/30/16 04:00 98.1 15 137/79 98 11/29/16 10:30 Room Air 11/28/16 18:00 21 11/28/16 05:16 2 Labs Laboratory Tests Test 11/29/16 11/30/16 14:45 03:49 Lactic Acid Level 0.8 Magnesium Level 1.3 1.3 White Blood Count 6.9 Red Blood Count 2.58 Hemoglobin 7.2 Hematocrit 20.7 Mean Corpuscular Volume 80.3 Mean Corpuscular Hemoglobin 27.8 Mean Corpuscular Hemoglobin 34.6 Concent Red Cell Distribution Width 15.2 Platelet Count 74 Mean Platelet Volume 8.6 Neutrophils (%) (Auto) 84.1 Lymphocytes (%) (Auto) 10.9 Monocytes (%) (Auto) 4.3 Eosinophils (%) (Auto) 0.5 Basophils (%) (Auto) 0.2 Neutrophils # (Auto) 5.8 Lymphocytes # (Auto) 0.8 Monocytes # (Auto) 0.3 Eosinophils # (Auto) 0.0 Basophils # (Auto) 0.0 CBC Comment AUTO DIFF Differential Comment AUTO DIFF CONFIRMED Platelet Estimate LOW Platelet Morphology Comment ENLARGED Acanthocytes OCC Sodium Level 137 Potassium Level 2.9 Chloride Level 110 Carbon Dioxide Level 17.0 Anion Gap 10 Blood Urea Nitrogen 17 Creatinine 0.84 Estimat Glomerular Filtration 100 Rate Random Glucose 80 Calcium Level 7.3 Protein Corrected Calcium 8.5 Total Bilirubin 0.6 Aspartate Amino Transf 20 (AST/SGOT) Alanine Aminotransferase 8 (ALT/SGPT) Alkaline Phosphatase 101 Total Protein 4.9 Albumin 2.1 Date/Time Procedure Status Source Growth 11/28/16 01:05 Aerobic Blood Culture - Preliminary Resulted Blood Peripheral NO GROWTH IN 1 DAY 11/28/16 01:05 Anaerobic Blood Culture - Preliminary Resulted Blood Peripheral NO GROWTH IN 1 DAY 11/28/16 00:25 Cryptosporidium Exam - Final Complete Stool Stool NEGATIVE - NO CRYPTOSPORIDIUM ANTIGEN... 11/28/16 00:25 Giardia Antigen (ANGELIQUE) - Final Complete Stool Stool NEGATIVE - NO GIARDIA ANTIGEN DETECTE... 11/28/16 00:25 - Final Complete Stool Stool NO ENTERIC PATHOGENS DETECTED BY PCR... Cardiovascular: Regular Lungs: Clear Abdomen: Other (thin; no abdominal pain with palpation ) Extremities: No edema A/P Assessment and Plan 41 year old male with severe constipation; rule out stercoral ulcer -Continue cathartics -Tolerating regular diet -VSS -Hmg 72 today; Nurse going to call Dr. Chiang -Will continue to follow Attending Statement patient seen at bedside diarrhea, still with abd pain, but better Esperanza Cox Nov 30, 2016 10:41 Sixto Howard MD Dec 09, 2016 21:18
[2016-11-30] MEDS: ACETAMINOPHEN/HYDROcodone 325 MG/5 MG TAB PO PRN ×3 (11:48→20:27)
--- NOTE | 2016-11-30 11:49 | HHI.GIFU ---
Subjective Remarks Patient is resting in bed, states he is confused as to how he got here and how log he has been here, still with RLQ tenderness but much improvement, no nausea , no vomiting, no signs of bleeding. He is having loose stools with some chunks in it, S/p SSE X 3 and laxatives (Amawi,Khawla PEDIATRIC CARE COORDINATOR) Objective Vitals I&O Vital Signs Date Time Temp Pulse Resp B/P Pulse Ox O2 Delivery O2 Flow Rate FiO2 11/30/16 06:00 72 11/30/16 04:00 76 11/30/16 04:00 98.1 76 15 137/79 98 11/30/16 02:00 74 11/30/16 00:00 98.2 80 14 137/78 98 11/30/16 00:00 80 11/29/16 22:00 83 11/29/16 20:00 76 11/29/16 20:00 98.0 76 16 134/79 97 11/29/16 19:47 97 11/29/16 18:00 81 11/29/16 16:00 98.2 81 20 135/73 11/29/16 16:00 80 11/29/16 14:00 81 11/29/16 12:00 98.1 81 18 121/65 11/29/16 12:00 88 I/O 11/29/16 11/29/16 11/29/16 11/30/16 11/30/16 11/30/16 07:00 15:00 23:00 07:00 15:00 23:00 Intake Total 1288 ml 1476 ml 632 ml 1049 ml Output Total 1900 ml 1700 ml 1650 ml 300 ml Balance -612 ml -224 ml -1018 ml 749 ml Intake Oral 240 ml 240 ml 240 ml 240 ml IV Total 1048 ml 1236 ml 392 ml 809 ml Output Urine Total 200 ml 200 ml 150 ml 300 ml Stool Total 1700 ml 1500 ml 1500 ml # Bowel Movements 1 Laboratory Laboratory Tests Test 11/29/16 11/30/16 14:45 03:49 Lactic Acid Level 0.8 Magnesium Level 1.3 1.3 White Blood Count 6.9 Red Blood Count 2.58 Hemoglobin 7.2 Hematocrit 20.7 Mean Corpuscular Volume 80.3 Mean Corpuscular Hemoglobin 27.8 Mean Corpuscular Hemoglobin 34.6 Concent Red Cell Distribution Width 15.2 Platelet Count 74 Mean Platelet Volume 8.6 Neutrophils (%) (Auto) 84.1 Lymphocytes (%) (Auto) 10.9 Monocytes (%) (Auto) 4.3 Eosinophils (%) (Auto) 0.5 Basophils (%) (Auto) 0.2 Neutrophils # (Auto) 5.8 Lymphocytes # (Auto) 0.8 Monocytes # (Auto) 0.3 Eosinophils # (Auto) 0.0 Basophils # (Auto) 0.0 CBC Comment AUTO DIFF Differential Comment AUTO DIFF CONFIRMED Platelet Estimate LOW Platelet Morphology Comment ENLARGED Acanthocytes OCC Sodium Level 137 Potassium Level 2.9 Chloride Level 110 Carbon Dioxide Level 17.0 Anion Gap 10 Blood Urea Nitrogen 17 Creatinine 0.84 Estimat Glomerular Filtration 100 Rate Random Glucose 80 Calcium Level 7.3 Protein Corrected Calcium 8.5 Total Bilirubin 0.6 Aspartate Amino Transf 20 (AST/SGOT) Alanine Aminotransferase 8 (ALT/SGPT) Alkaline Phosphatase 101 Total Protein 4.9 Albumin 2.1 Date/Time Procedure Status Source Growth 11/28/16 01:05 Aerobic Blood Culture - Preliminary Resulted Blood Peripheral NO GROWTH IN 2 DAYS 11/28/16 01:05 Anaerobic Blood Culture - Preliminary Resulted Blood Peripheral NO GROWTH IN 2 DAYS 11/28/16 00:25 Cryptosporidium Exam - Final Complete Stool Stool NEGATIVE - NO CRYPTOSPORIDIUM ANTIGEN... 11/28/16 00:25 Giardia Antigen (ANGELIQUE) - Final Complete Stool Stool NEGATIVE - NO GIARDIA ANTIGEN DETECTE... 11/28/16 00:25 - Final Complete Stool Stool NO ENTERIC PATHOGENS DETECTED BY PCR... Imaging Last Impressions Chest X-Ray 11/30/16 0600 Signed Impressions: Service Date/Time: November 04:05 - CONCLUSION: Developing right lung infiltrate. Kan Lyons MD Abdomen/Pelvis CT 11/28/16 0054 Signed Impressions: Service Date/Time: Monday, November 28, 2016 01:47 - CONCLUSION: Severe constipation. No acute CT findings. Kan Lyons MD Physical Exam HEENT: Cachexia, normocephalic; atraumatic; no jaundice. Throat is clear. NECK: Neck is supple, no JVD, no lymphadenopathy. CHEST: Chest is clear to auscultation and percussion. CARDIAC: Regular rate and rhythm with no murmur gallop or rubs. ABDOMEN: Soft, nondistended, RLQ tenderness but much improved; no hepatosplenomegaly; bowel sounds are present in all four quadrants. EXTREMITIES: No clubbing, cyanosis, or edema. SKIN: Normal; no rash; no jaundice. 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 (Guido Nevarez) Assessment and Plan Plan - Abdominal pain more on RLQ, diarrhea ( negative for C-diff), stool cx negative - CT showed Severe constipation. No acute CT findings. S/P EGD/colonoscopy on (11/29/16) showed esophagitis, poor colonic prep, no signs of bleeding GS on the case, no surgical intervention at this time - Constipation- on CT above, having loose stools with chunks, s/p SSE X 3, Dulcolax supp, senna - Anemia (normocytic, normochromic )- likely multifactorial, anemia of chronic dz vs GI bleed, no gi bleed reported, hgb 7.2, blood ordered , EGD/colonoscopy as above - Failure to thrive/ wt loss- unknown etiology, patient states he has been eating, denies nausea or vomiting - Sepsis- Lactic acid of 4.8- IMPROVED, WBC normal, blood cx pending, abx, ID consulted - Hyponatremia- resolved - Hypokalemia per attending - AKF Resolved - Fibromyalgia/ HTN, CAD, DM per attending Plan: - JHONY - Await BX - S/p SSE X 3 - Cont. bowel regimen - Will need repeat colonoscopy at some point with better prep - Okay to transfer to med/surg floor - Monitor hh - Transfuse as needed - Consider CE as an op - Patient seen and examined by Dr. Negro and myself and this note is written on his behalf. (Guido Nevarez) Physician Comments Seen and examined with KATERINE, repeat colonoscopy once cleaned out. Continue bowel regimen. (Jeremy Negro MD) Guido Nevarez Nov 30, 2016 11:49 Jeremy Negro MD Nov 30, 2016 16:43
--- NOTE | 2016-11-30 12:47 | HHI.IDPN ---
Note Infectious Disease Note Patient is alert and responsive. Concerned about memory loss. Notes pain in rectum. Has rectal bag in place. Loose stools. Afebrile. D/W RN. Could not do colonoscopy because of inadequate prep. This is a 41-year-old white male who presented to the emergency department with generalized weakness. The patient was noted becoming increasingly forgetful over the past days prior to admission and he was also becoming very weak and fell before being brought to the emergency department for evaluation. He was noted to be hypotensive in the emergency department and he was started on IV fluids and was admitted to the intensive care unit. His lactic acid level was elevated at 4.8. The patient was also put on Levophed. He has been having diarrhea since admission. PAST MEDICAL HISTORY 1. Diabetes mellitus reportedly improved after he lost a lot of weight 2. Arthritis, 3. Coronary artery disease, 4. Hypercholesteremia, 5. Congestive heart failure, 6. Fibromyalgia, 7. Gastroesophageal reflux disease, 8. Hepatitis, 9. Gout. 10. Hypertension, 11. kidney stones 12. History of left hip surgery, 13. History of right nephro lithotripsy and a J-tube stent 14. vasectomy. ALLERGIES NO KNOWN DRUG ALLERGIES. MEDICATIONS Current Medications Medications (Trade) Dose Ordered Sig/Abbi Route PRN Reason Start Time Stop Time Status Last Admin Dose Admin Norepinephrine Bitartrate (Levophed-Dextrose Drip) 250 ml @ 0 mls/hr TITRATE IV 11/28/16 03:15 11/28/16 03:34 Magnesium Oxide 800 mg 800 mg UNSCH PRN PO For Magnesium 1.2 - 1.6 mg/dL 11/28/16 04:30 11/30/16 06:35 Magnesium Sulfate 4 gm/Sodium Chloride 100 ml @ 50 mls/hr UNSCH PRN IV For Magnesium 0.9 - 1.1 mg/dL 11/28/16 04:30 Magnesium Sulfate 2 gm/Sodium Chloride 100 ml @ 50 mls/hr UNSCH PRN IV For Magnesium 1.2 - 1.6 mg/dL 11/28/16 04:30 Potassium Chloride 100 ml @ 50 mls/hr Q2H PRN IV For Potassium 2.8 - 3.2 mEq/L 11/28/16 04:30 11/30/16 06:06 Potassium Chloride 100 ml @ 50 mls/hr Q2H PRN IV For Potassium 3.3 - 3.5 mEq/L 11/28/16 04:30 Potassium Chloride 100 ml @ 50 mls/hr Q2H PRN IV For Potassium 2.8 - 3.2 mEq/L 11/28/16 04:30 Potassium Chloride (KCl 40 Meq Premix Inj) 100 ml @ 25 mls/hr UNSCH PRN IV For Potassium 3.3 - 3.5 mEq/L 11/28/16 04:30 Potassium Chloride (KCl 40 Meq/30 ml Liq) 40 meq UNSCH PRN PO/TUBE For Potassium 3.3 - 3.5 mEq/L 11/28/16 04:30 Potassium Chloride (KCl 40 Meq/30 ml Liq) 40 meq UNSCH PRN PO/TUBE SEE LABEL COMMENTS 11/28/16 04:30 Potassium Phosphate (K-Phos) 2,000 mg Q4H PRN PO For Phosphorus < 2.5 mg/dL 11/28/16 04:30 Potassium Phosphate 2000 mg 2,000 mg UNSCH PRN PO/TUBE SEE LABEL COMMENTS 11/28/16 04:30 Potassium Phosphate 30 mmol/ Sodium Chloride 260 ml @ 42 mls/hr UNSCH PRN IV SEE LABEL COMMENTS 11/28/16 04:30 Sodium Phosphate/ Sodium Chloride (Sodium Phosphate Inj/NS 250 ml Inj) 250 ml @ 42 mls/hr UNSCH PRN IV For Phosphorus < 2.5 mg/dL 11/28/16 04:30 Dextrose (D50w (Vial) Inj) 25 ml UNSCH PRN IV PUSH HYPOGLYCEMIA-SEE COMMENTS 11/28/16 04:30 Insulin Human Regular 1 1 Q6HR SQ 11/28/16 06:00 11/30/16 01:35 Lactated Ringer's 1,000 ml @ 60 mls/hr [id number] IV 11/28/16 04:21 11/28/16 05:15 Sodium Chloride (NS 1000 ml Inj) 1,000 ml @ 150 mls/hr Q6H40M IV 11/28/16 04:21 11/30/16 03:01 IV Flush (NS Flush) 2 ml UNSCH PRN IV FLUSH FLUSH AFTER USING IV ACCESS 11/28/16 04:30 IV Flush (NS Flush) 2 ml BID IV FLUSH 11/28/16 09:00 11/30/16 08:27 Pantoprazole Sodium (Protonix Inj) 40 mg DAILY IV 11/28/16 09:00 11/30/16 08:27 Ondansetron HCl (Zofran Inj) 4 mg Q6H PRN IV NAUSEA OR VOMITING 11/28/16 04:30 Senna/Docusate Sodium (Elisha-Colace) 2 tab BID PO 11/28/16 09:00 11/30/16 08:27 Heparin Sodium (Porcine) (Heparin Inj) 5,000 units Q12H SQ 11/28/16 06:00 Hold 11/28/16 05:11 Miscellaneous Information 1 [id number] XX 11/28/16 04:30 Chlorhexidine Gluconate (Chlorhexidine 2% Cloth) 3 pack Taper DAILY@04 TOP 11/29/16 04:00 11/25/17 03:59 11/30/16 04:00 Chlorhexidine Gluconate 3 pack 3 pack UNSCH PRN TOP HYGIENIC CARE 11/28/16 04:30 Cefepime HCl 1000 mg/Sodium Chloride 100 ml @ 200 mls/hr Q8H IV 11/28/16 12:00 11/30/16 11:45 Metronidazole (Flagyl 500 Mg Inj) 100 ml @ 100 mls/hr Q6H IV 11/28/16 10:00 11/30/16 10:39 Acetaminophen/ Hydrocodone Bitart ([place] 5-325 Mg) 1 tab Q4H PRN PO PAIN 1-10 11/28/16 17:30 11/30/16 11:48 Hydromorphone HCl (Dilaudid Pf Inj) 0.5 mg Q4H PRN IV PUSH pain 6-10 or not taking po 11/29/16 01:00 11/29/16 11:39 Bisacodyl (Dulcolax Supp) 20 mg DAILY RECTAL 11/29/16 10:30 11/30/16 08:27 SOCIAL HISTORY No tobacco use. Occasional alcohol. Positive cocaine use. FAMILY HISTORY Significant for brain cancer in his maternal aunt and one grandfather had lung cancer. REVIEW OF SYSTEMS Pertinent as mentioned in the history of present illness. OBJ: Vital Signs Date Time Temp Pulse Resp B/P Pulse Ox O2 Delivery O2 Flow Rate FiO2 11/30/16 12:35 98 21 11/30/16 06:00 72 11/30/16 04:00 76 11/30/16 04:00 98.1 76 15 137/79 98 11/30/16 02:00 74 11/30/16 00:00 98.2 80 14 137/78 98 11/30/16 00:00 80 11/29/16 22:00 83 11/29/16 20:00 76 11/29/16 20:00 98.0 76 16 134/79 97 11/29/16 19:47 97 11/29/16 18:00 81 11/29/16 16:00 98.2 81 20 135/73 11/29/16 16:00 80 11/29/16 14:00 81 11/29/16 11/29/16 11/30/16 15:00 23:00 07:00 Intake Total 1476 ml 632 ml 1049 ml Output Total 1700 ml 1650 ml 300 ml Balance -224 ml -1018 ml 749 ml Intake Oral 240 ml 240 ml 240 ml IV Total 1236 ml 392 ml 809 ml Output Urine Total 200 ml 150 ml 300 ml Stool Total 1500 ml 1500 ml # Bowel Movements 1 Laboratory Tests Test 11/28/16 11/29/16 11/30/16 18:53 03:28 03:49 Hemoglobin 7.2 GM/DL 8.1 GM/DL 7.2 GM/DL Hematocrit 21.2 % 24.0 % 20.7 % White Blood Count 10.6 TH/MM3 6.9 TH/MM3 Red Blood Count 2.90 MIL/MM3 2.58 MIL/MM3 Mean Corpuscular Volume 82.7 FL 80.3 FL Mean Corpuscular Hemoglobin 27.9 PG 27.8 PG Mean Corpuscular Hemoglobin 33.7 % 34.6 % Concent Red Cell Distribution Width 14.9 % 15.2 % Platelet Count 73 TH/MM3 74 TH/MM3 Mean Platelet Volume 8.9 FL 8.6 FL Neutrophils (%) (Auto) 84.1 % Lymphocytes (%) (Auto) 10.9 % Monocytes (%) (Auto) 4.3 % Eosinophils (%) (Auto) 0.5 % Basophils (%) (Auto) 0.2 % Neutrophils # (Auto) 5.8 TH/MM3 Lymphocytes # (Auto) 0.8 TH/MM3 Monocytes # (Auto) 0.3 TH/MM3 Eosinophils # (Auto) 0.0 TH/MM3 Basophils # (Auto) 0.0 TH/MM3 CBC Comment AUTO DIFF Differential Comment AUTO DIFF CONFIRMED Platelet Estimate LOW Platelet Morphology Comment ENLARGED Acanthocytes OCC Laboratory Tests Test 11/29/16 11/29/16 11/30/16 03:28 14:45 03:49 Sodium Level 136 MEQ/L 137 MEQ/L Potassium Level 3.4 MEQ/L 2.9 MEQ/L Chloride Level 106 MEQ/L 110 MEQ/L Carbon Dioxide Level 17.2 MEQ/L 17.0 MEQ/L Anion Gap 13 MEQ/L 10 MEQ/L Blood Urea Nitrogen 20 MG/DL 17 MG/DL Creatinine 1.16 MG/DL 0.84 MG/DL Estimat Glomerular Filtration 69 ML/MIN 100 ML/MIN Rate Random Glucose 135 MG/DL 80 MG/DL Calcium Level 7.4 MG/DL 7.3 MG/DL Protein Corrected Calcium 8.4 MG/DL 8.5 MG/DL Total Protein 5.3 GM/DL 4.9 GM/DL Lactic Acid Level 0.8 mmol/L Magnesium Level 1.3 MG/DL 1.3 MG/DL Total Bilirubin 0.6 MG/DL Aspartate Amino Transf 20 U/L (AST/SGOT) Alanine Aminotransferase 8 U/L (ALT/SGPT) Alkaline Phosphatase 101 U/L Albumin 2.1 GM/DL Microbiology Date/Time Procedure Status Source Growth 11/28/16 00:25 - Final Complete Stool Stool NO ENTERIC PATHOGENS DETECTED BY PCR... 11/28/16 00:25 Cryptosporidium Exam - Final Complete Stool Stool NEGATIVE - NO CRYPTOSPORIDIUM ANTIGEN... 11/28/16 00:25 Giardia Antigen (ANGELIQUE) - Final Complete Stool Stool NEGATIVE - NO GIARDIA ANTIGEN DETECTE... 11/28/16 01:00 Aerobic Blood Culture - Preliminary Resulted Blood Peripheral NO GROWTH IN 2 DAYS 11/28/16 01:00 Anaerobic Blood Culture - Preliminary Resulted Blood Peripheral NO GROWTH IN 2 DAYS 11/28/16 01:05 Aerobic Blood Culture - Preliminary Resulted Blood Peripheral NO GROWTH IN 2 DAYS 11/28/16 01:05 Anaerobic Blood Culture - Preliminary Resulted Blood Peripheral NO GROWTH IN 2 DAYS HIV - Negative. IMAGING; Chest X-Ray 11/30/16 0600 Signed Impressions: Service Date/Time: November 04:05 - CONCLUSION: Developing right lung infiltrate. Kan Lyons MD Abdomen/Pelvis CT 11/28/16 0054 Signed Impressions: Service Date/Time: Monday, November 28, 2016 01:47 - CONCLUSION: Severe constipation. No acute CT findings. Kan Lyons MD Chest X-Ray 11/28/16 0000 Signed Impressions: Service Date/Time: Monday, November 28, 2016 03:24 - CONCLUSION: No acute disease. Kan Lyons MD PHYSICAL EXAMINATION GENERAL: Cachectic. No acute distress. He is awake, alert and oriented. HEENT: Head is atraumatic. Bitemporal wasting. Extraocular movements grossly intact, pupils reactive to light without icterus. Oropharynx no visible lesions. Erosive remaining teeth at the front upper and erosions at lower. No thrush. NECK: Supple without adenopathy. No swelling. LUNGS: Markedly diminished breath sounds HEART: Distant S1-S2 without audible murmurs, rubs or gallops. ABDOMEN: Positive bowel sounds. Moderate diffuse tenderness on palpation. No hepatosplenomegaly. EXTREMITIES: No clubbing, cyanosis or edema. Diffuse muscle wasting throughout. SKIN: No rash. NEUROLOGIC: Nonfocal. PSYCHIATRIC: The patient is calm and cooperative. IMPRESSION 1. Septic shock. 2. Diarrhea. Stool studies negative. 3. Severe protein calorie malnutrition. 4. Constipation based on CT scan findings. 5. Developing R. lung infiltrate on CXR. ?pneumonia. RECOMMENDATIONS 1. Continue Flagyl. 2. Continue Cefepime 3. Monitor blood cultures. Wilber Nunez MD Nov 30, 2016 12:47
[2016-11-30] MEDS ORDERED: diphenhydrAMINE HCL 25 MG CAP PO PRN (14:00)
[2016-11-30] MEDS ORDERED: ACETAMINOPHEN 325 MG TAB PO PRN (14:00)
[2016-11-30] MEDS ORDERED: FUROSEMIDE 20 MG/2 ML VIAL IV ONE (14:00)
[2016-11-30] MEDS ORDERED: SODIUM CHLOR 0.9% 250 ML INJ 250 ML IV ONE (14:00)
[2016-12-01] VITALS: BP 157/84; PULSE 78; RESP 18; TEMP 97.1; O2SAT 98
[2016-12-01] MEDS: INSULIN NovoLIN REGULAR SUPPLEMENTAL SCALE SQ SCH ×4 (00:18→18:50)
[2016-12-01] MEDS: ACETAMINOPHEN/HYDROcodone 325 MG/5 MG TAB PO PRN ×5 (00:24→21:19)
[2016-12-01 00:37] LABS: REVIEW FLAG FINAL
[2016-12-01] MEDS ORDERED: POTASSIUM CHLORIDE 20 MEQ CONTROLLED RELEASE TAB PO ONE ×2 (01:30→11:00)
[2016-12-01 04:00] VITALS: BP 145/87; PULSE 76; RESP 18; TEMP 97.5; O2SAT 98
[2016-12-01] MEDS: metroNIDAZOLE 500 MG INJ 100 ML IV SCH ×4 (04:00→22:01)
[2016-12-01] MEDS: CEFEPIME INJ 1,000 MG in SODIUM CHLORIDE 0.9% INJ 100 ML IV SCH ×3 (04:00→21:19)
[2016-12-01] MEDS: CHLORHEXIDINE GLUCONATE 2 % 1 PACK (2 CLOTHS) TOP SCH (04:00)
[2016-12-01 05:09] VITALS: O2SAT 98
[2016-12-01] MEDS: SODIUM CHLOR 0.9% 1000 ML INJ 1,000 ML IV SCH ×3 (05:41→19:01)
[2016-12-01 06:08] LABS: HEMATOCRIT 25.6 % (39.0-51.0); PLATELET COUNT 96 TH/MM3 (150-450); RED BLOOD COUNT 3.21 MIL/MM3 (4.50-5.90); RED CELL DISTRIBUTION WIDTH 15.2 % (11.6-17.2); WHITE BLOOD COUNT 4.5 TH/MM3 (4.0-11.0)
[2016-12-01 06:13] LABS: REVIEW FLAG FINAL
[2016-12-01 06:34] LABS: POTASSIUM 3.2 MEQ/L (3.5-5.1)
[2016-12-01 06:53] LABS: CALCIUM-PROTEIN CORRECTED 7.9 MG/DL (8.5-10.1)
[2016-12-01] MEDS: DOCUSATE SODIUM 50 MG/SENNA 8.6 MG TAB PO SCH ×2 (08:10→21:20)
[2016-12-01] MEDS: PANTOPRAZOLE SODIUM 40 MG VIAL IV SCH (08:10)
[2016-12-01] MEDS: SODIUM CHLORIDE 0.9% FLUSH 5 ML FLUSH IV FLUSH SCH ×2 (08:11→22:01)
[2016-12-01] MEDS: BISACODYL 10 MG SUPP RECTAL SCH (08:11)
[2016-12-01 08:35] VITALS: BP 162/88; PULSE 80; RESP 20; TEMP 97.9; O2SAT 97
--- NOTE | 2016-12-01 10:21 | HHI.PR ---
Subjective Remarks Patient is in nad. Says he has memory problems. He did have several BM, he had diarrhea now. abdominal pain is better controlled. Will check for C diff. No n/v. Able to eat. Abdominal pain is controlled by meds. No fever or chills. Objective Vitals Vital Signs Date Time Temp Pulse Resp B/P Pulse Ox O2 Delivery O2 Flow Rate FiO2 12/01/16 08:35 97.9 80 20 162/88 97 12/01/16 05:09 98 Nasal Cannula 12/01/16 04:00 97.5 76 18 145/87 98 12/01/16 00:00 97.1 78 18 157/84 98 11/30/16 21:27 18 11/30/16 20:00 97.3 84 18 171/88 99 11/30/16 19:02 98.0 89 20 146/87 96 11/30/16 18:20 96.8 88 20 145/87 95 11/30/16 17:45 97.5 102 20 151/88 98 11/30/16 16:00 98.9 96 20 167/92 98 11/30/16 14:00 96 11/30/16 12:35 98 21 11/30/16 12:00 93 11/30/16 12:00 98.2 93 22 143/83 98 I/O 11/30/16 11/30/16 11/30/16 12/01/16 12/01/16 12/01/16 07:00 15:00 23:00 07:00 15:00 23:00 Intake Total 1049 ml 1706 ml 360 ml Output Total 300 ml 410 ml 4000 ml Balance 749 ml 1296 ml -3640 ml Intake Oral 240 ml 240 ml 360 ml IV Total 809 ml 1466 ml Output Urine Total 300 ml 410 ml 4000 ml # Bowel Movements 1 2 Result Diagram: 12/01/16 0525 12/01/16 0525 Imaging Last Impressions Chest X-Ray 11/30/16 0600 Signed Impressions: Service Date/Time: November 04:05 - CONCLUSION: Developing right lung infiltrate. Kan Lyons MD Abdomen/Pelvis CT 11/28/16 0054 Signed Impressions: Service Date/Time: Monday, November 28, 2016 01:47 - CONCLUSION: Severe constipation. No acute CT findings. Kan Lyons MD Objective Remarks GENERAL: Critically ill, cachectic middle-aged male, lying in bed. Pale HEENT:. Normocephalic. Atraumatic. Pupils equal, round and reactive. Mucous membranes are dry. NECK: Trachea is midline. There is no JVD. CHEST: Equal chest rise. Clear to auscultation. CARDIOVASCULAR: Regular rhythm. No appreciable murmurs. ABDOMEN: Small healed scar subxiphoid from prior PEG tube placement. Diffuse tenderness to palpation. There is no guarding. No hepatosplenomegaly. MUSCULOSKELETAL: Distal pulses 2+. No pitting Edema. NEUROLOGICAL: Alert awake oriented. Follows commands in all 4 extremities. A/P Assessment and Plan Assessment: This is a 41-year-old male with a history of failure to thrive who presents with multiple acute on chronic medical problems including kidney injury , septic shock, diarrhea, possible colitis. He is very critically ill this time , and descending obstruction has to be ruled out. We will admit him to the ICU and monitor him carefully. We will empirically cover him with antibiotics and await culture data. Gi, general surgery and ID following Plan by systems: Neurologic: Metabolic encephalopathy q1h neurochecks Avoid long-acting sedating meds Respiratory: Atelectasis Wean oxygen by nasal cannula for goal SPO2 greater than 92% Incentive spirometer to bedside Cardiovascular: Sinus tachycardia Septic shock-resolved Status post 4 L normal saline. MIVF LR @ 200cc/hr-reduce to 100 ml per hour --critical care bedside ultrasound 11/28: poor acoustic windows. grossly preserved biventricular function with moderately collapsable IVC with quiet respiration. --trend lactate-today pending --Off norepinephrine Renal: Acute Kidney Injury --Mancia, q1h uop, strict i/o's --may be multifactorial, including pre-renal secondary to shock --Strict I/Os FEN/GI: Diarrhea Lactic Acidosis Severe constipation on CT with abdominal pain and lactic acidosis, R/o obstruction, mass Acute protein calorie malnutrition- severe Hypomagnesemia Acute intravascular volume depletion Severe Dehydration Hyponatremia --S/P EGD colonoscopy 11/29. GI and general surgery following --ICU electrolyte protocol. daily BMP --likely hypovolemic hyponatremia secondary to severe diarrhea --continue mivf as above. --if lactate is not downtrending, will consider repeat CT abd/pelvis with IV contrast to look for ischemic bowel. Heme/ID: Septic Shock resolved Anemia, likely secondary to chronic disease --f/u blood, sputum, urine cultures --continue Cefepime 1gm iv q8h, continue Flagyl 500mg iv q6h --Colitis is the most likely source at this point --1 unit prbc now given hemodynamic instability --recheck hgb --daily CBC Endocrine: Hyperglycemia of Critical Illness Hypothermia -- SSI, medium scale, q6h --random cortisol 47, unlikely to be adrenal insufficiency --aggressive warming with BairHugger-now off Prophylaxis: GI Prophylaxis Protonix 40 mg IV every 24 hours DVT Prophylaxis -- SCDs SQH 5000 [id number] due to thrombocytopenia Lines: Mancia Will likely need central venous access for vasopressor Dispo: DC when improved and cleared by consultants Mary Chiang MD Dec 01, 2016 10:21
[2016-12-01] MEDS ORDERED: CALCIUM CARBONATE 500 MG CHEWABLE TAB CHEW PRN (11:00)
[2016-12-01 12:33] VITALS: BP 125/87; PULSE 78; RESP 20; TEMP 96.6; O2SAT 97
--- NOTE | 2016-12-01 12:45 | HHI.GIFU ---
Subjective Remarks Resting in bed. No diarrhea today. States he is forgetful. No n/v. Nurse reports that when he does have diarrhea, it is a small smudge. No bleeding. ( Jolly Restrepo) Objective Vitals I&O Vital Signs Date Time Temp Pulse Resp B/P Pulse Ox O2 Delivery O2 Flow Rate FiO2 12/01/16 12:33 96.6 78 20 125/87 97 12/01/16 08:35 97.9 80 20 162/88 97 12/01/16 05:09 98 Nasal Cannula 12/01/16 04:00 97.5 76 18 145/87 98 12/01/16 00:00 97.1 78 18 157/84 98 11/30/16 21:27 18 11/30/16 20:00 97.3 84 18 171/88 99 11/30/16 19:02 98.0 89 20 146/87 96 11/30/16 18:20 96.8 88 20 145/87 95 11/30/16 17:45 97.5 102 20 151/88 98 11/30/16 16:00 98.9 96 20 167/92 98 11/30/16 14:00 96 I/O 11/30/16 11/30/16 11/30/16 12/01/16 12/01/16 12/01/16 07:00 15:00 23:00 07:00 15:00 23:00 Intake Total 1049 ml 1706 ml 360 ml Output Total 300 ml 410 ml 4000 ml Balance 749 ml 1296 ml -3640 ml Intake Oral 240 ml 240 ml 360 ml IV Total 809 ml 1466 ml Output Urine Total 300 ml 410 ml 4000 ml # Bowel Movements 1 2 3 Laboratory Laboratory Tests Test 11/30/16 12/01/16 12/01/16 12:57 00:09 05:25 Blood Type A POSITIVE Crossmatch Leukocyte-Reduced Red Blood Cells Blood Bank Comment Hemoglobin 8.8 9.0 Hematocrit 26.0 25.6 Potassium Level 3.4 3.2 White Blood Count 4.5 Red Blood Count 3.21 Mean Corpuscular Volume 80.0 Mean Corpuscular Hemoglobin 28.0 Mean Corpuscular Hemoglobin 35.0 Concent Red Cell Distribution Width 15.2 Platelet Count 96 Mean Platelet Volume 8.5 Sodium Level 136 Chloride Level 107 Carbon Dioxide Level 17.0 Anion Gap 12 Blood Urea Nitrogen 9 Creatinine 0.89 Estimat Glomerular Filtration 93 Rate Random Glucose 93 Calcium Level 7.0 Protein Corrected Calcium 7.9 Total Protein 5.3 Date/Time Procedure Status Source Growth 11/28/16 01:05 Aerobic Blood Culture - Preliminary Resulted Blood Peripheral NO GROWTH IN 3 DAYS 11/28/16 01:05 Anaerobic Blood Culture - Preliminary Resulted Blood Peripheral NO GROWTH IN 3 DAYS 11/28/16 00:25 Cryptosporidium Exam - Final Complete Stool Stool NEGATIVE - NO CRYPTOSPORIDIUM ANTIGEN... 11/28/16 00:25 Giardia Antigen (ANGELIQUE) - Final Complete Stool Stool NEGATIVE - NO GIARDIA ANTIGEN DETECTE... 11/28/16 00:25 - Final Complete Stool Stool NO ENTERIC PATHOGENS DETECTED BY PCR... Imaging Last Impressions Chest X-Ray 11/30/16 0600 Signed Impressions: Service Date/Time: November 04:05 - CONCLUSION: Developing right lung infiltrate. Kan Lyons MD Abdomen/Pelvis CT 11/28/16 0054 Signed Impressions: Service Date/Time: Monday, November 28, 2016 01:47 - CONCLUSION: Severe constipation. No acute CT findings. Kan Lyons MD Physical Exam HEENT: Cachexia, normocephalic; atraumatic; no jaundice. CHEST: CTA CARDIAC: RRR ABDOMEN: Soft, nondistended, nontender; no hepatosplenomegaly; bowel sounds are present in all four quadrants. EXTREMITIES: No clubbing, cyanosis, or edema. SKIN: Normal; no rash; no jaundice. DIRECTOR OF ACCOUNTS RECEIVABLE: No focal deficits; lethargic, forgetful (Jolly Restrepo) Assessment and Plan Plan ASSESSMENT: - Abdominal pain more on RLQ, diarrhea ( negative for C-diff), stool cx negative. Abdomen/Pelvis CT (11/28/16)----> Severe constipation. No acute CT findings. S/P EGD/colonoscopy on (11/29/16) showed esophagitis, poor colonic prep, no signs of bleeding. Pathology pending. S/P GS evaluation. Will plan for colonoscopy with 2 day prep on Sunday. - Constipation with ? overflow diarrhea. s/p SSE X 3, Dulcolax supp, senna. No BM today. - Anemia (normocytic, normochromic )- likely multifactorial. 9.0/25.6. - Failure to thrive/ wt loss- unknown etiology, patient states he has been eating, denies nausea or vomiting - Sepsis- Lactic acid of 4.8- IMPROVED, WBC normal, blood cx pending, abx, ID consulted - Hyponatremia- resolved - Hypokalemia per attending - AKF Resolved - Fibromyalgia/ HTN, CAD, DM per attending Plan: - Plan for colonoscopy on Sunday - Clear liquids on Sunday and Sunday - NPO after MN Sunday night - Golytely prep Sunday - Await pathology - Cont. bowel regimen - Monitor HH - Transfuse as needed - Consider CE as an op - Patient seen and examined by Dr. Negro and myself and this note is written on his behalf. (Jolly Restrepo) Physician Comments Seen and examined with KATERINE, no active bleeding. Colonoscopy planned for sunday. (Jeremy Negro MD) Jolly Restrepo Dec 01, 2016 12:45 Jeremy Negro MD Dec 01, 2016 17:10
[2016-12-01] MEDS: CALCIUM CARBONATE 500 MG CHEWABLE TAB CHEW SCH ×2 (13:11→21:20)
[2016-12-01] MEDS: LACTOBACILLUS ACIDOPHILUS TAB PO SCH ×2 (14:00→21:20)
[2016-12-01] MEDS: LACTATED RINGER'S 1000 ML INJ 1,000 ML IV SCH (15:54)
--- NOTE | 2016-12-01 16:31 | HHI.IDPN ---
Note Infectious Disease Note Patient is alert and responsive. Notes pain in rectum. Stool a little formed. Afebrile. D/W RN. Colonoscopy planned for Sunday. Stool studies neg. This is a 41-year-old white male who presented to the emergency department with generalized weakness. The patient was noted becoming increasingly forgetful over the past days prior to admission and he was also becoming very weak and fell before being brought to the emergency department for evaluation. He was noted to be hypotensive in the emergency department and he was started on IV fluids and was admitted to the intensive care unit. His lactic acid level was elevated at 4.8. The patient was also put on Levophed. He has been having diarrhea since admission. PAST MEDICAL HISTORY 1. Diabetes mellitus reportedly improved after he lost a lot of weight 2. Arthritis, 3. Coronary artery disease, 4. Hypercholesteremia, 5. Congestive heart failure, 6. Fibromyalgia, 7. Gastroesophageal reflux disease, 8. Hepatitis, 9. Gout. 10. Hypertension, 11. kidney stones 12. History of left hip surgery, 13. History of right nephro lithotripsy and a J-tube stent 14. vasectomy. ALLERGIES NO KNOWN DRUG ALLERGIES. MEDICATIONS Current Medications Medications (Trade) Dose Ordered Sig/Abbi Route PRN Reason Start Time Stop Time Status Last Admin Dose Admin Norepinephrine Bitartrate (Levophed-Dextrose Drip) 250 ml @ 0 mls/hr TITRATE IV 11/28/16 03:15 11/28/16 03:34 Dextrose (D50w (Vial) Inj) 25 ml UNSCH PRN IV PUSH HYPOGLYCEMIA-SEE COMMENTS 11/28/16 04:30 Insulin Human Regular 1 1 Q6HR SQ 11/28/16 06:00 12/01/16 00:18 Lactated Ringer's 1,000 ml @ 60 mls/hr [id number] IV 11/28/16 04:21 11/28/16 05:15 Sodium Chloride (NS 1000 ml Inj) 1,000 ml @ 150 mls/hr Q6H40M IV 11/28/16 04:21 11/30/16 15:51 IV Flush (NS Flush) 2 ml UNSCH PRN IV FLUSH FLUSH AFTER USING IV ACCESS 11/28/16 04:30 IV Flush (NS Flush) 2 ml BID IV FLUSH 11/28/16 09:00 12/01/16 08:11 Pantoprazole Sodium (Protonix Inj) 40 mg DAILY IV 11/28/16 09:00 12/01/16 08:10 Ondansetron HCl (Zofran Inj) 4 mg Q6H PRN IV NAUSEA OR VOMITING 11/28/16 04:30 Senna/Docusate Sodium (Elisha-Colace) 2 tab BID PO 11/28/16 09:00 12/01/16 08:10 Heparin Sodium (Porcine) (Heparin Inj) 5,000 units Q12H SQ 11/28/16 06:00 Hold 11/28/16 05:11 Miscellaneous Information 1 Q361D XX 11/28/16 04:30 Chlorhexidine Gluconate (Chlorhexidine 2% Cloth) 3 pack Taper DAILY@04 TOP 11/29/16 04:00 11/25/17 03:59 12/01/16 04:00 Chlorhexidine Gluconate 3 pack 3 pack UNSCH PRN TOP HYGIENIC CARE 11/28/16 04:30 Cefepime HCl 1000 mg/Sodium Chloride 100 ml @ 200 mls/hr Q8H IV 11/28/16 12:00 12/01/16 12:00 Metronidazole (Flagyl 500 Mg Inj) 100 ml @ 100 mls/hr Q6H IV 11/28/16 10:00 12/01/16 12:11 Acetaminophen/ Hydrocodone Bitart ([place] 5-325 Mg) 1 tab Q4H PRN PO PAIN 1-10 11/28/16 17:30 12/01/16 12:11 Hydromorphone HCl (Dilaudid Pf Inj) 0.5 mg Q4H PRN IV PUSH pain 6-10 or not taking po 11/29/16 01:00 11/29/16 11:39 Bisacodyl (Dulcolax Supp) 20 mg DAILY RECTAL 11/29/16 10:30 11/30/16 08:27 Calcium Carbonate (Tums Chew) 500 mg Q12HR CHEW 12/01/16 11:00 12/06/16 10:59 12/01/16 13:11 Calcium Carbonate (Tums Chew) 500 mg Q2H PRN CHEW dyspepsia 12/01/16 11:00 Polyethylene Glycol/ Electrolytes (Colyte Liq) 4,000 ml ONCE ONCE PO 12/03/16 16:00 12/03/16 16:01 Lactobacillus Acidophilus (Lactinex) 1 tab Q12HR PO 12/01/16 14:00 SOCIAL HISTORY No tobacco use. Occasional alcohol. Positive cocaine use. FAMILY HISTORY Significant for brain cancer in his maternal aunt and one grandfather had lung cancer. REVIEW OF SYSTEMS Pertinent as mentioned in the history of present illness. OBJ: Vital Signs Date Time Temp Pulse Resp B/P Pulse Ox O2 Delivery O2 Flow Rate FiO2 12/01/16 12:33 96.6 78 20 125/87 97 12/01/16 08:35 97.9 80 20 162/88 97 12/01/16 05:09 98 Nasal Cannula 12/01/16 04:00 97.5 76 18 145/87 98 12/01/16 00:00 97.1 78 18 157/84 98 11/30/16 21:27 18 11/30/16 20:00 97.3 84 18 171/88 99 11/30/16 19:02 98.0 89 20 146/87 96 11/30/16 18:20 96.8 88 20 145/87 95 11/30/16 17:45 97.5 102 20 151/88 98 11/30/16 11/30/16 12/01/16 15:00 23:00 07:00 Intake Total 1706 ml Output Total 410 ml Balance 1296 ml Intake Oral 240 ml IV Total 1466 ml Output Urine Total 410 ml # Bowel Movements 2 Laboratory Tests Test 11/30/16 12/01/16 12/01/16 03:49 00:09 05:25 White Blood Count 6.9 TH/MM3 4.5 TH/MM3 Red Blood Count 2.58 MIL/MM3 3.21 MIL/MM3 Hemoglobin 7.2 GM/DL 8.8 GM/DL 9.0 GM/DL Hematocrit 20.7 % 26.0 % 25.6 % Mean Corpuscular Volume 80.3 FL 80.0 FL Mean Corpuscular Hemoglobin 27.8 PG 28.0 PG Mean Corpuscular Hemoglobin 34.6 % 35.0 % Concent Red Cell Distribution Width 15.2 % 15.2 % Platelet Count 74 TH/MM3 96 TH/MM3 Mean Platelet Volume 8.6 FL 8.5 FL Neutrophils (%) (Auto) 84.1 % Lymphocytes (%) (Auto) 10.9 % Monocytes (%) (Auto) 4.3 % Eosinophils (%) (Auto) 0.5 % Basophils (%) (Auto) 0.2 % Neutrophils # (Auto) 5.8 TH/MM3 Lymphocytes # (Auto) 0.8 TH/MM3 Monocytes # (Auto) 0.3 TH/MM3 Eosinophils # (Auto) 0.0 TH/MM3 Basophils # (Auto) 0.0 TH/MM3 CBC Comment AUTO DIFF Differential Comment AUTO DIFF CONFIRMED Platelet Estimate LOW Platelet Morphology Comment ENLARGED Acanthocytes OCC Laboratory Tests Test 11/30/16 12/01/16 12/01/16 03:49 00:09 05:25 Sodium Level 137 MEQ/L 136 MEQ/L Potassium Level 2.9 MEQ/L 3.4 MEQ/L 3.2 MEQ/L Chloride Level 110 MEQ/L 107 MEQ/L Carbon Dioxide Level 17.0 MEQ/L 17.0 MEQ/L Anion Gap 10 MEQ/L 12 MEQ/L Blood Urea Nitrogen 17 MG/DL 9 MG/DL Creatinine 0.84 MG/DL 0.89 MG/DL Estimat Glomerular Filtration 100 ML/MIN 93 ML/MIN Rate Random Glucose 80 MG/DL 93 MG/DL Calcium Level 7.3 MG/DL 7.0 MG/DL Protein Corrected Calcium 8.5 MG/DL 7.9 MG/DL Magnesium Level 1.3 MG/DL Total Bilirubin 0.6 MG/DL Aspartate Amino Transf 20 U/L (AST/SGOT) Alanine Aminotransferase 8 U/L (ALT/SGPT) Alkaline Phosphatase 101 U/L Total Protein 4.9 GM/DL 5.3 GM/DL Albumin 2.1 GM/DL Vital Signs Microbiology Date/Time Procedure Status Source Growth 11/28/16 00:25 - Final Complete Stool Stool NO ENTERIC PATHOGENS DETECTED BY PCR... 11/28/16 00:25 Cryptosporidium Exam - Final Complete Stool Stool NEGATIVE - NO CRYPTOSPORIDIUM ANTIGEN... 11/28/16 00:25 Giardia Antigen (ANGELIQUE) - Final Complete Stool Stool NEGATIVE - NO GIARDIA ANTIGEN DETECTE... 11/28/16 01:00 Aerobic Blood Culture - Preliminary Resulted Blood Peripheral NO GROWTH IN 2 DAYS 11/28/16 01:00 Anaerobic Blood Culture - Preliminary Resulted Blood Peripheral NO GROWTH IN 2 DAYS 11/28/16 01:05 Aerobic Blood Culture - Preliminary Resulted Blood Peripheral NO GROWTH IN 2 DAYS 11/28/16 01:05 Anaerobic Blood Culture - Preliminary Resulted Blood Peripheral NO GROWTH IN 2 DAYS HIV - Negative. IMAGING; Chest X-Ray 11/30/16 0600 Signed Impressions: Service Date/Time: November 04:05 - CONCLUSION: Developing right lung infiltrate. Kan Lyons MD Abdomen/Pelvis CT 11/28/16 0054 Signed Impressions: Service Date/Time: Monday, November 28, 2016 01:47 - CONCLUSION: Severe constipation. No acute CT findings. Kan Lyons MD Chest X-Ray 11/28/16 0000 Signed Impressions: Service Date/Time: Monday, November 28, 2016 03:24 - CONCLUSION: No acute disease. Kan Lyons MD PHYSICAL EXAMINATION GENERAL: Cachectic. No acute distress. He is awake, alert and oriented. HEENT: Head is atraumatic. Bitemporal wasting. Extraocular movements grossly intact, pupils reactive to light without icterus. Oropharynx no visible lesions. Erosive remaining teeth at the front upper and erosions at lower. No thrush. NECK: Supple without adenopathy. No swelling. LUNGS: Markedly diminished breath sounds HEART: Distant S1-S2 without audible murmurs, rubs or gallops. ABDOMEN: Positive bowel sounds. Moderate diffuse tenderness on palpation. No hepatosplenomegaly. EXTREMITIES: No clubbing, cyanosis or edema. Diffuse muscle wasting throughout. SKIN: No rash. NEUROLOGIC: Nonfocal. PSYCHIATRIC: The patient is calm and cooperative. IMPRESSION 1. Septic shock. Improved. 2. Diarrhea. Stool studies negative. 3. Severe protein calorie malnutrition. 4. Constipation based on CT scan findings. 5. Developing R. lung infiltrate on CXR. ?pneumonia. RECOMMENDATIONS 1. Continue Flagyl. 2. Continue Cefepime 3. Monitor blood cultures. 4. Follow up CXR in a couple of days. Wilber Nunez MD Dec 01, 2016 16:31
--- NOTE | 2016-12-01 18:10 | HHI.PR ---
Subjective Subjective Notes Resting in bed Says his abdomen hurts but when I palpate he says it does not ---appears confused Objective Vitals/I&O Vital Signs Date Time Temp Pulse Resp B/P Pulse Ox O2 Delivery O2 Flow Rate FiO2 12/01/16 12:33 96.6 78 20 125/87 97 12/01/16 05:09 Nasal Cannula 11/30/16 12:35 21 11/28/16 05:16 2 Labs Laboratory Tests Test 12/01/16 12/01/16 00:09 05:25 Hemoglobin 8.8 9.0 Hematocrit 26.0 25.6 Potassium Level 3.4 3.2 White Blood Count 4.5 Red Blood Count 3.21 Mean Corpuscular Volume 80.0 Mean Corpuscular Hemoglobin 28.0 Mean Corpuscular Hemoglobin 35.0 Concent Red Cell Distribution Width 15.2 Platelet Count 96 Mean Platelet Volume 8.5 Sodium Level 136 Chloride Level 107 Carbon Dioxide Level 17.0 Anion Gap 12 Blood Urea Nitrogen 9 Creatinine 0.89 Estimat Glomerular Filtration 93 Rate Random Glucose 93 Calcium Level 7.0 Protein Corrected Calcium 7.9 Total Protein 5.3 Date/Time Procedure Status Source Growth 11/28/16 01:05 Aerobic Blood Culture - Preliminary Resulted Blood Peripheral NO GROWTH IN 3 DAYS 11/28/16 01:05 Anaerobic Blood Culture - Preliminary Resulted Blood Peripheral NO GROWTH IN 3 DAYS 11/28/16 00:25 Cryptosporidium Exam - Final Complete Stool Stool NEGATIVE - NO CRYPTOSPORIDIUM ANTIGEN... 11/28/16 00:25 Giardia Antigen (ANGELIQUE) - Final Complete Stool Stool NEGATIVE - NO GIARDIA ANTIGEN DETECTE... 11/28/16 00:25 - Final Complete Stool Stool NO ENTERIC PATHOGENS DETECTED BY PCR... Cardiovascular: Regular Lungs: Clear Abdomen: Other (non distended; non tender to palpation ) Extremities: No edema A/P Assessment and Plan 41 year old male with severe constipation; rule out stercoral ulcer -Continue cathartics -Tolerating regular diet -VSS -GI following---plan to scope Sunday -Will continue to see peripherally Attending Statement severe constipation patient seen at bedside pain better +bms Attestation The exam, history, and the medical decision-making described in the above note were completed with the assistance of the mid-level provider. I reviewed and agree with the findings presented. I attest that I had a [id number] encounter with the patient on the same day, and personally performed and documented my assessment and findings in the medical record. Esperanza Cox Dec 01, 2016 18:10 Sixto Howard MD Dec 13, 2016 19:41
[2016-12-01 20:00] VITALS: BP 135/78; PULSE 90; RESP 18; TEMP 97.2; O2SAT 100
[2016-12-02] VITALS: BP 120/84; PULSE 82; RESP 20; TEMP 97.2; O2SAT 99
[2016-12-02] MEDS: INSULIN NovoLIN REGULAR SUPPLEMENTAL SCALE SQ SCH ×5 (01:00→23:43)
[2016-12-02] MEDS: ACETAMINOPHEN/HYDROcodone 325 MG/5 MG TAB PO PRN ×6 (01:26→23:01)
[2016-12-02] MEDS: SODIUM CHLOR 0.9% 1000 ML INJ 1,000 ML IV SCH ×4 (01:41→21:41)
[2016-12-02 04:00] VITALS: BP 127/87; PULSE 82; RESP 18; TEMP 97.4; O2SAT 100
[2016-12-02] MEDS: CEFEPIME INJ 1,000 MG in SODIUM CHLORIDE 0.9% INJ 100 ML IV SCH ×3 (04:00→21:09)
[2016-12-02] MEDS: CHLORHEXIDINE GLUCONATE 2 % 1 PACK (2 CLOTHS) TOP SCH (04:00)
[2016-12-02] MEDS: metroNIDAZOLE 500 MG INJ 100 ML IV SCH ×4 (04:00→21:10)
[2016-12-02 08:00] VITALS: BP 143/92; PULSE 78; RESP 18; TEMP 98; O2SAT 96
[2016-12-02] MEDS: LACTATED RINGER'S 1000 ML INJ 1,000 ML IV SCH ×2 (08:34→23:44)
[2016-12-02] MEDS: PANTOPRAZOLE SODIUM 40 MG VIAL IV SCH (09:52)
[2016-12-02] MEDS: LACTOBACILLUS ACIDOPHILUS TAB PO SCH ×2 (09:52→21:09)
[2016-12-02] MEDS: CALCIUM CARBONATE 500 MG CHEWABLE TAB CHEW SCH ×3 (09:52→21:08)
[2016-12-02] MEDS: DOCUSATE SODIUM 50 MG/SENNA 8.6 MG TAB PO SCH ×2 (09:52→21:00)
[2016-12-02] MEDS: BISACODYL 10 MG SUPP RECTAL SCH (09:53)
[2016-12-02] MEDS: SODIUM CHLORIDE 0.9% FLUSH 5 ML FLUSH IV FLUSH SCH ×2 (09:53→21:09)
[2016-12-02 10:27] LABS: AUTOMATED NEUTROPHIL # 2.3 TH/MM3 (1.8-7.7); BASOPHIL # 0.1 TH/MM3 (0-0.2); BASOPHIL % 1.5 % (0.0-2.0); EOSINOPHIL # 0.1 TH/MM3 (0-0.4); HEMATOCRIT 31.6 % (39.0-51.0); HEMO FLAGS DIFF FINAL; LYMPH % 29.3 % (9.0-44.0); LYMPHOCYTE # 1.1 TH/MM3 (1.0-4.8); MEAN CORPUSCULAR HEMOGLOBIN 27.5 PG (27.0-34.0); MEAN CORPUSCULAR HGB CONC 33.6 % (32.0-36.0); MONO % 7.2 % (0.0-8.0); PLATELET COUNT 143 TH/MM3 (150-450); RED BLOOD COUNT 3.85 MIL/MM3 (4.50-5.90); RED CELL DISTRIBUTION WIDTH 15.7 % (11.6-17.2); WHITE BLOOD COUNT 3.9 TH/MM3 (4.0-11.0)
[2016-12-02 10:45] LABS: BICARBONATE 23.6 MEQ/L (21.0-32.0); MAGNESIUM 0.9 MG/DL (1.5-2.5)
[2016-12-02 11:00] LABS: CALCIUM-PROTEIN CORRECTED 7.9 MG/DL (8.5-10.1)
--- NOTE | 2016-12-02 11:45 | HHI.PR ---
Subjective Remarks Says he doesn't remember things, his past or what he was ding today. He is alert and awake. More confused today. Will do CT scan head. No pain. Says she is eating well. Mag low replaced by IV and PO. Start mag supplement Objective Vitals Vital Signs Date Time Temp Pulse Resp B/P Pulse Ox O2 Delivery O2 Flow Rate FiO2 12/02/16 08:00 98.0 78 18 143/92 96 12/02/16 07:08 17 12/02/16 04:00 97.4 82 18 127/87 100 12/02/16 00:00 97.2 82 20 120/84 99 12/01/16 20:00 97.2 90 18 135/78 100 12/01/16 12:33 96.6 78 20 125/87 97 I/O 12/01/16 12/01/16 12/01/16 12/02/16 12/02/16 12/02/16 07:00 15:00 23:00 07:00 15:00 23:00 Intake Total 360 ml 1040 ml Output Total 4000 ml 2000 ml Balance -3640 ml -2000 ml 1040 ml Intake Oral 360 ml 1040 ml Output Urine Total 4000 ml 2000 ml # Bowel Movements 3 7 Result Diagram: 12/02/16 1007 12/02/16 1007 Imaging Last Impressions Chest X-Ray 11/30/16 0600 Signed Impressions: Service Date/Time: November 04:05 - CONCLUSION: Developing right lung infiltrate. Kan Lyons MD Abdomen/Pelvis CT 11/28/16 0054 Signed Impressions: Service Date/Time: Monday, November 28, 2016 01:47 - CONCLUSION: Severe constipation. No acute CT findings. Kan Lyons MD Objective Remarks GENERAL: Critically ill, cachectic middle-aged male, lying in bed. Pale HEENT:. Normocephalic. Atraumatic. Pupils equal, round and reactive. Mucous membranes are dry. NECK: Trachea is midline. There is no JVD. CHEST: Equal chest rise. Clear to auscultation. CARDIOVASCULAR: Regular rhythm. No appreciable murmurs. ABDOMEN: Small healed scar subxiphoid from prior PEG tube placement. Diffuse tenderness to palpation. There is no guarding. No hepatosplenomegaly. MUSCULOSKELETAL: Distal pulses 2+. No pitting Edema. NEUROLOGICAL: Alert awake oriented. Follows commands in all 4 extremities. A/P Assessment and Plan Assessment: This is a 41-year-old male with a history of failure to thrive who presents with multiple acute on chronic medical problems including kidney injury , septic shock, diarrhea, possible colitis. He is very critically ill this time , and descending obstruction has to be ruled out. We will admit him to the ICU and monitor him carefully. We will empirically cover him with antibiotics and await culture data. Gi, general surgery and ID following Plan by systems: Neurologic: Metabolic encephalopathy q1h neurochecks Avoid long-acting sedating meds - Will do CT scan Respiratory: Atelectasis Wean oxygen by nasal cannula for goal SPO2 greater than 92% Incentive spirometer to bedside Cardiovascular: Sinus tachycardia Septic shock-resolved Status post 4 L normal saline. MIVF LR @ 200cc/hr-reduce to 100 ml per hour --critical care bedside ultrasound 11/28: poor acoustic windows. grossly preserved biventricular function with moderately collapsable IVC with quiet respiration. --trend lactate normal --Off norepinephrine Renal: Acute Kidney Injury --Mancia, q1h uop, strict i/o's --may be multifactorial, including pre-renal secondary to shock --Strict I/Os FEN/GI: Diarrhea Lactic Acidosis Severe constipation on CT with abdominal pain and lactic acidosis, R/o obstruction, mass Acute protein calorie malnutrition- severe Hypomagnesemia Acute intravascular volume depletion Severe Dehydration Hyponatremia --S/P EGD colonoscopy 11/29. GI and general surgery following --ICU electrolyte protocol. daily BMP --likely hypovolemic hyponatremia secondary to severe diarrhea --Replace electrolytes Heme/ID: Septic Shock resolved Anemia, likely secondary to chronic disease --f/u blood, sputum, urine cultures --continue Cefepime 1gm iv q8h, continue Flagyl 500mg iv q6h --Colitis is the most likely source at this point --1 unit prbc now given hemodynamic instability --recheck hgb stable --daily CBC Endocrine: Hyperglycemia Hypothermia -- SSI, medium scale, q6h --random cortisol 47, unlikely to be adrenal insufficiency --aggressive warming with BairHugger-now off Prophylaxis: GI Prophylaxis Protonix 40 mg IV every 24 hours DVT Prophylaxis -- SCDs SQH 5000 [id number] due to thrombocytopenia Lines: Mancia Dispo: DC when improved and cleared by consultants Mary Chiang MD Dec 02, 2016 11:45
[2016-12-02 12:00] VITALS: BP 139/61; PULSE 91; RESP 16; TEMP 96.5; O2SAT 99
[2016-12-02] MEDS ORDERED: MAGNESIUM SULFATE 4 GM PREMIX 100 ML IV ONE (12:00)
[2016-12-02] MEDS: MAGNESIUM OXIDE 400 MG TAB PO SCH ×2 (13:27→21:09)
[2016-12-02] MEDS: [UNRECOGNIZED DRUG - OTHER] IV SCH ×4 (13:27→17:24)
--- NOTE | 2016-12-02 15:48 | RADRPT ---
EXAM DATE/TIME: 12/02/2016 14:39 [facility] COMPARISON: No previous studies available for comparison. INDICATIONS : Altered mental status, weakness. RADIATION DOSE: 40.95 CTDIvol (mGy) MEDICAL HISTORY : Cardiovascular disease. Hypertension. Diabetes mellitus type 2. SURGICAL HISTORY : None. ENCOUNTER: Initial ACUITY: 1 day PAIN SCALE: 3/10 LOCATION: cranial TECHNIQUE: Multiple contiguous axial images were obtained of the head. Using automated exposure control and adj ustment of the mA and/or kV according to patient size, radiation dose was kept as low as reasonably a chievable to obtain optimal diagnostic quality images. FINDINGS: CEREBRUM: The ventricles are normal for age. No evidence of midline shift, mass lesion, hemorrhage or acute in farction. No extra-axial fluid collections are seen. POSTERIOR FOSSA: The cerebellum and brainstem are intact. The 4th ventricle is midline. The cerebellopontine angle i s unremarkable. EXTRACRANIAL: The visualized portion of the orbits is intact. SKULL: The calvaria is intact. No evidence of skull fracture. CONCLUSION: No acute disease. Kan Altamirano MD on December 02, 2016 at 15:46 Board Certified Radiologist. This report was verified electronically.
[2016-12-02 16:17] VITALS: BP 101/67; PULSE 90; RESP 16; TEMP 97.4; O2SAT 99
[2016-12-02 20:58] VITALS: BP 117/79; PULSE 90; RESP 19; TEMP 96.4; O2SAT 100
[2016-12-02] MEDS: NOREPINEPHRINE-DEXTROSE DRIP 250 ML IV SCH (23:39)
[2016-12-03 00:09] VITALS: BP 120/82; PULSE 83; RESP 18; TEMP 97; O2SAT 98
[2016-12-03 04:00] VITALS: BP 129/89; PULSE 84; RESP 18; TEMP 96; O2SAT 98
[2016-12-03] MEDS: CHLORHEXIDINE GLUCONATE 2 % 1 PACK (2 CLOTHS) TOP SCH (04:00)
[2016-12-03] MEDS: SODIUM CHLOR 0.9% 1000 ML INJ 1,000 ML IV SCH ×3 (04:59→17:22)
[2016-12-03] MEDS: CEFEPIME INJ 1,000 MG in SODIUM CHLORIDE 0.9% INJ 100 ML IV SCH ×3 (05:01→21:27)
[2016-12-03] MEDS: metroNIDAZOLE 500 MG INJ 100 ML IV SCH ×4 (05:02→22:15)
[2016-12-03] MEDS: INSULIN NovoLIN REGULAR SUPPLEMENTAL SCALE SQ SCH ×3 (06:00→17:38)
[2016-12-03 07:09] LABS: BASOPHIL # 0.1 TH/MM3 (0-0.2); BASOPHIL % 1.6 % (0.0-2.0); EOSINOPHIL # 0.1 TH/MM3 (0-0.4); EOSINOPHIL % 1.7 % (0.0-4.0); HEMATOCRIT 30.5 % (39.0-51.0); HEMO FLAGS DIFF FINAL; LYMPH % 24.3 % (9.0-44.0); LYMPHOCYTE # 1.1 TH/MM3 (1.0-4.8); MEAN CELL VOLUME 81.3 FL (80.0-100.0); MEAN CORPUSCULAR HEMOGLOBIN 27.4 PG (27.0-34.0); MEAN CORPUSCULAR HGB CONC 33.8 % (32.0-36.0); MONO % 6.2 % (0.0-8.0); NEUT % 66.2 % (16.0-70.0); PLATELET COUNT 160 TH/MM3 (150-450); RED BLOOD COUNT 3.75 MIL/MM3 (4.50-5.90); RED CELL DISTRIBUTION WIDTH 15.7 % (11.6-17.2); WHITE BLOOD COUNT 4.5 TH/MM3 (4.0-11.0)
[2016-12-03 07:40] LABS: BICARBONATE 19.1 MEQ/L (21.0-32.0); MAGNESIUM 1.6 MG/DL (1.5-2.5); POTASSIUM 3.3 MEQ/L (3.5-5.1)
[2016-12-03 07:53] LABS: CALCIUM-PROTEIN CORRECTED 8.3 MG/DL (8.5-10.1)
[2016-12-03 08:00] VITALS: BP 129/98; PULSE 86; RESP 16; TEMP 98.4; O2SAT 98
[2016-12-03] MEDS: BISACODYL 10 MG SUPP RECTAL SCH (09:00)
[2016-12-03] MEDS: SODIUM CHLORIDE 0.9% FLUSH 5 ML FLUSH IV FLUSH SCH ×2 (09:00→21:27)
[2016-12-03] MEDS ORDERED: POTASSIUM CHLORIDE 10 MEQ CONTROLLED RELEASE TAB PO ONE (09:00)
[2016-12-03] MEDS: DOCUSATE SODIUM 50 MG/SENNA 8.6 MG TAB PO SCH ×2 (09:00→21:25)
[2016-12-03] MEDS: ACETAMINOPHEN/HYDROcodone 325 MG/5 MG TAB PO PRN ×4 (09:03→22:13)
[2016-12-03] MEDS: MAGNESIUM OXIDE 400 MG TAB PO SCH (09:04)
[2016-12-03] MEDS: LACTOBACILLUS ACIDOPHILUS TAB PO SCH ×2 (09:04→21:25)
[2016-12-03] MEDS: CALCIUM CARBONATE 500 MG CHEWABLE TAB CHEW SCH ×2 (09:04→21:26)
[2016-12-03] MEDS: PANTOPRAZOLE SODIUM 40 MG VIAL IV SCH (09:05)
[2016-12-03] MEDS: MAGNESIUM SULFATE 1 GM PREMIX 100 ML IV SCH ×2 (09:22→12:03)
--- NOTE | 2016-12-03 10:22 | HHI.PR ---
Subjective Remarks Forgetful. Says he has a good appetite. No diarrhea. Foergetful. However he did remember is plan for colonoscopy on Sunday. More awake and alert. Objective Vitals Vital Signs Date Time Temp Pulse Resp B/P Pulse Ox O2 Delivery O2 Flow Rate FiO2 12/03/16 08:00 98.4 86 16 129/98 98 12/03/16 04:00 96.0 84 18 129/89 98 12/03/16 00:09 97.0 83 18 120/82 98 12/02/16 20:58 96.4 90 19 117/79 100 12/02/16 16:17 97.4 90 16 101/67 99 12/02/16 12:00 96.5 91 16 139/61 99 I/O 12/02/16 12/02/16 12/02/16 12/03/16 12/03/16 12/03/16 07:00 15:00 23:00 07:00 15:00 23:00 Intake Total 1040 ml 905 ml Output Total 1000 ml 1000 ml Balance 1040 ml -95 ml -1000 ml Intake Oral 1040 ml 585 ml IV Total 320 ml Output Urine Total 1000 ml 1000 ml # Voids 2 # Bowel Movements 5 Result Diagram: 12/03/16 0611 12/03/16 0611 Imaging Last Impressions Head CT 12/02/16 0000 Signed Impressions: Service Date/Time: Friday, December 02, 2016 14:39 - CONCLUSION: No acute disease. Kan Altamirano MD Chest X-Ray 11/30/16 0600 Signed Impressions: Service Date/Time: November 04:05 - CONCLUSION: Developing right lung infiltrate. Kan Lyons MD Abdomen/Pelvis CT 11/28/16 0054 Signed Impressions: Service Date/Time: Monday, November 28, 2016 01:47 - CONCLUSION: Severe constipation. No acute CT findings. Kan Lyons MD Objective Remarks GENERAL: Critically ill, cachectic middle-aged male, lying in bed. Pale. HEENT: Sunken bitemporal bones. Atraumatic. Pupils equal, round and reactive. Mucous membranes are dry. NECK: Trachea is midline. There is no JVD. CHEST: Equal chest rise. Clear to auscultation. CARDIOVASCULAR: Regular rhythm. No appreciable murmurs. ABDOMEN: Small healed scar subxiphoid from prior PEG tube placement. Diffuse tenderness to palpation. There is no guarding. No hepatosplenomegaly. MUSCULOSKELETAL: Distal pulses 2+. No pitting Edema. NEUROLOGICAL: Alert, awake, oriented. Follows commands in all 4 extremities. A/P Assessment and Plan Assessment: This is a 41-year-old male with a history of failure to thrive who presents with multiple acute on chronic medical problems including kidney injury , septic shock, diarrhea, possible colitis. He is very critically ill this time , and descending obstruction has to be ruled out. We will admit him to the ICU and monitor him carefully. We will empirically cover him with antibiotics and await culture data. Gi, general surgery and ID following Plan by systems: Neurologic: Metabolic encephalopathy q1h neurochecks Avoid long-acting sedating meds - Will do CT scan Respiratory: Atelectasis Wean oxygen by nasal cannula for goal SPO2 greater than 92% Incentive spirometer to bedside Cardiovascular: Sinus tachycardia Septic shock-resolved Status post 4 L normal saline. MIVF LR @ 200cc/hr-reduce to 100 ml per hour --critical care bedside ultrasound 11/28: poor acoustic windows. grossly preserved biventricular function with moderately collapsable IVC with quiet respiration. --trend lactate back to normal --Off norepinephrine Renal: Acute Kidney Injury --Mancia, q1h uop, strict i/o's --may be multifactorial, including pre-renal secondary to shock --Strict I/Os FEN/GI: Diarrhea Lactic Acidosis Severe constipation on CT with abdominal pain and lactic acidosis, R/o obstruction, mass Acute protein calorie malnutrition- severe Hypomagnesemia Acute intravascular volume depletion Severe Dehydration Hyponatremia --S/P EGD colonoscopy 11/29. GI and general surgery following --ICU electrolyte protocol. daily BMP --likely hypovolemic hyponatremia secondary to severe diarrhea --Plan for colonoscopy 12/04/16 --Replace electrolytes Heme/ID: Septic Shock resolved Anemia, likely secondary to chronic disease --f/u blood, sputum, urine cultures --continue Cefepime 1gm iv q8h, continue Flagyl 500mg iv q6h --Colitis is the most likely source at this point --1 unit prbc now given hemodynamic instability --recheck hgb stable --daily CBC Endocrine: Hyperglycemia Hypothermia -- SSI, medium scale, q6h --random cortisol 47, unlikely to be adrenal insufficiency --aggressive warming with BairHugger-now off Prophylaxis: GI Prophylaxis Protonix 40 mg IV every 24 hours DVT Prophylaxis -- SCDs SQH 5000 [id number] due to thrombocytopenia Lines: Gavino Razao: GENIE when improved and cleared by consultants plan for EGD 12/04 Mary Chiang MD Dec 03, 2016 10:22
[2016-12-03 12:00] VITALS: BP 135/87; PULSE 79; RESP 18; TEMP 96.9; O2SAT 95
[2016-12-03 16:00] VITALS: BP 132/88; PULSE 92; RESP 18; TEMP 96.7; O2SAT 100
[2016-12-03] MEDS ORDERED: PEG (High)/E-LYTE SOLN 4000 ML BTL PO ONE (16:00)
[2016-12-03] MEDS: LACTATED RINGER'S 1000 ML INJ 1,000 ML IV SCH (17:04)
[2016-12-03 22:17] VITALS: BP 132/89; PULSE 94; RESP 20; TEMP 97.4; O2SAT 100
[2016-12-04] VITALS (7 sets, daily range): BP systolic 118–158; BP diastolic 77–97; PULSE 87–98; RESP 16–20; TEMP 95.8–98.5; O2SAT 98–100
[2016-12-04] MEDS: MAGNESIUM OXIDE 400 MG TAB PO SCH ×2 (00:50→11:00)
[2016-12-04] MEDS: SODIUM CHLOR 0.9% 1000 ML INJ 1,000 ML IV SCH ×4 (02:30→22:00)
[2016-12-04] MEDS: CHLORHEXIDINE GLUCONATE 2 % 1 PACK (2 CLOTHS) TOP SCH (04:00)
[2016-12-04] MEDS: CEFEPIME INJ 1,000 MG in SODIUM CHLORIDE 0.9% INJ 100 ML IV SCH ×3 (04:50→20:38)
[2016-12-04] MEDS: ACETAMINOPHEN/HYDROcodone 325 MG/5 MG TAB PO PRN ×5 (04:50→22:03)
[2016-12-04] MEDS: metroNIDAZOLE 500 MG INJ 100 ML IV SCH ×4 (05:30→22:06)
[2016-12-04] MEDS: INSULIN NovoLIN REGULAR SUPPLEMENTAL SCALE SQ SCH ×4 (06:00→17:46)
[2016-12-04 08:41] LABS: AUTOMATED NEUTROPHIL # 5.8 TH/MM3 (1.8-7.7); BASOPHIL # 0.1 TH/MM3 (0-0.2); BASOPHIL % 1.2 % (0.0-2.0); EOSINOPHIL # 0.1 TH/MM3 (0-0.4); EOSINOPHIL % 1.9 % (0.0-4.0); HEMATOCRIT 29.3 % (39.0-51.0); HEMO FLAGS DIFF FINAL; MEAN CELL VOLUME 83.6 FL (80.0-100.0); MEAN CORPUSCULAR HGB CONC 33.5 % (32.0-36.0); MONO % 8.3 % (0.0-8.0); NEUT % 75.6 % (16.0-70.0); PLATELET COUNT 204 TH/MM3 (150-450); RED BLOOD COUNT 3.51 MIL/MM3 (4.50-5.90); RED CELL DISTRIBUTION WIDTH 15.6 % (11.6-17.2); WHITE BLOOD COUNT 7.7 TH/MM3 (4.0-11.0)
[2016-12-04] MEDS: SODIUM CHLORIDE 0.9% FLUSH 5 ML FLUSH IV FLUSH SCH ×2 (09:00→21:00)
[2016-12-04] MEDS: BISACODYL 10 MG SUPP RECTAL SCH (09:00)
[2016-12-04 09:15] LABS: BICARBONATE 15.6 MEQ/L (21.0-32.0); MAGNESIUM 1.3 MG/DL (1.5-2.5); POTASSIUM 3.6 MEQ/L (3.5-5.1)
--- NOTE | 2016-12-04 09:24 | HHI.PR ---
Subjective Remarks Mag low replaced by IV continue daily supplement PO. Plan for EGD. Feels very weak. Abdominal pain is better controlled. No diarrhea. No n/v. Mother at bedside. Objective Vitals Vital Signs Date Time Temp Pulse Resp B/P Pulse Ox O2 Delivery O2 Flow Rate FiO2 12/04/16 08:00 98.4 87 17 156/97 98 12/04/16 04:00 97.4 88 20 158/97 98 12/04/16 00:00 97.4 88 18 142/92 100 12/03/16 22:17 97.4 94 20 132/89 100 12/03/16 16:00 96.7 92 18 132/88 100 12/03/16 12:00 96.9 79 18 135/87 95 I/O 12/03/16 12/03/16 12/03/16 12/04/16 12/04/16 12/04/16 07:00 15:00 23:00 07:00 15:00 23:00 Intake Total 720 ml Output Total 1000 ml 900 ml 750 ml Balance -1000 ml -180 ml -750 ml Intake Oral 720 ml Output Urine Total 1000 ml 900 ml 750 ml # Voids 2 1 1 # Bowel Movements 5 4 Result Diagram: 12/04/16 0817 12/04/16 0812 Imaging Last Impressions Head CT 12/02/16 0000 Signed Impressions: Service Date/Time: Friday, December 02, 2016 14:39 - CONCLUSION: No acute disease. Kan Altamirano MD Chest X-Ray 11/30/16 0600 Signed Impressions: Service Date/Time: November 04:05 - CONCLUSION: Developing right lung infiltrate. Kan Lyons MD Abdomen/Pelvis CT 11/28/16 0054 Signed Impressions: Service Date/Time: Monday, November 28, 2016 01:47 - CONCLUSION: Severe constipation. No acute CT findings. Kan Lyons MD Objective Remarks GENERAL: Critically ill, cachectic middle-aged male, lying in bed. Pale. HEENT: Sunken bitemporal bones. Atraumatic. Pupils equal, round and reactive. Mucous membranes are dry. NECK: Trachea is midline. There is no JVD. CHEST: Equal chest rise. Clear to auscultation. CARDIOVASCULAR: Regular rhythm. No appreciable murmurs. ABDOMEN: Small healed scar subxiphoid from prior PEG tube placement. Diffuse tenderness to palpation. There is no guarding. No hepatosplenomegaly. MUSCULOSKELETAL: Distal pulses 2+. No pitting Edema. NEUROLOGICAL: Alert, awake, oriented. Follows commands in all 4 extremities. A/P Assessment and Plan Assessment: This is a 41-year-old male with a history of failure to thrive who presents with multiple acute on chronic medical problems including kidney injury , septic shock, diarrhea, possible colitis. He is very critically ill this time , and descending obstruction has to be ruled out. We will admit him to the ICU and monitor him carefully. We will empirically cover him with antibiotics and await culture data. Gi, general surgery and ID following Plan by systems: Neurologic: Metabolic encephalopathy q1h neurochecks Avoid long-acting sedating meds - Will do CT scan Respiratory: Atelectasis Wean oxygen by nasal cannula for goal SPO2 greater than 92% Incentive spirometer to bedside Cardiovascular: Sinus tachycardia Septic shock-resolved Status post 4 L normal saline. MIVF LR @ 200cc/hr-reduce to 100 ml per hour --critical care bedside ultrasound 11/28: poor acoustic windows. grossly preserved biventricular function with moderately collapsable IVC with quiet respiration. --trend lactate back to normal --Off norepinephrine Renal: Acute Kidney Injury --Mancia, q1h uop, strict i/o's --may be multifactorial, including pre-renal secondary to shock --Strict I/Os FEN/GI: Diarrhea Lactic Acidosis Severe constipation on CT with abdominal pain and lactic acidosis, R/o obstruction, mass Acute protein calorie malnutrition- severe bmi 16, sunken bitemporal muscle Hypomagnesemia Acute intravascular volume depletion Severe Dehydration Hyponatremia --S/P EGD colonoscopy 11/29. GI and general surgery following --ICU electrolyte protocol. daily BMP --likely hypovolemic hyponatremia secondary to severe diarrhea --Plan for colonoscopy 12/04/16 --Replace electrolytes Heme/ID: Septic Shock resolved Anemia, likely secondary to chronic disease --f/u blood, sputum, urine cultures --continue Cefepime 1gm iv q8h, continue Flagyl 500mg iv q6h --Colitis is the most likely source at this point --1 unit prbc now given hemodynamic instability --recheck hgb stable --daily CBC Endocrine: Hyperglycemia Hypothermia -- SSI, medium scale, q6h --random cortisol 47, unlikely to be adrenal insufficiency --aggressive warming with BairHugger-now off Prophylaxis: GI Prophylaxis Protonix 40 mg IV every 24 hours DVT Prophylaxis -- SCDs SQH 5000 [id number] due to thrombocytopenia Lines: Gavino Dispo: DC when improved and cleared by consultants plan for EGD 12/04 Mary Chiang MD Dec 04, 2016 09:24
[2016-12-04] MEDS: LACTOBACILLUS ACIDOPHILUS TAB PO SCH ×2 (09:25→21:00)
[2016-12-04] MEDS: CALCIUM CARBONATE 500 MG CHEWABLE TAB CHEW SCH ×2 (09:25→21:00)
[2016-12-04] MEDS: DOCUSATE SODIUM 50 MG/SENNA 8.6 MG TAB PO SCH ×2 (09:25→21:00)
[2016-12-04] MEDS: PANTOPRAZOLE SODIUM 40 MG VIAL IV SCH (09:27)
[2016-12-04 09:54] LABS: CALCIUM-PROTEIN CORRECTED 8.1 MG/DL (8.5-10.1)
[2016-12-04] MEDS: MAGNESIUM SULFATE 1 GM PREMIX 100 ML IV SCH ×2 (10:20→13:30)
[2016-12-04] MEDS: LACTATED RINGER'S 1000 ML INJ 1,000 ML IV SCH (10:34)
--- NOTE | 2016-12-04 11:11 | HHI.PR ---
Subjective Subjective Notes Hungry; wants breakfast Objective Vitals/I&O Vital Signs Date Time Temp Pulse Resp B/P Pulse Ox O2 Delivery O2 Flow Rate FiO2 12/04/16 10:52 98.5 87 16 142/97 99 12/01/16 05:09 Nasal Cannula 11/30/16 12:35 21 Labs Laboratory Tests Test 12/04/16 12/04/16 08:12 08:17 Sodium Level 138 Potassium Level 3.6 Chloride Level 112 Carbon Dioxide Level 15.6 Anion Gap 10 Blood Urea Nitrogen 2 Creatinine 0.55 Estimat Glomerular Filtration 163 Rate Random Glucose 89 Calcium Level 7.1 Protein Corrected Calcium 8.1 Magnesium Level 1.3 Total Protein 5.3 White Blood Count 7.7 Red Blood Count 3.51 Hemoglobin 9.8 Hematocrit 29.3 Mean Corpuscular Volume 83.6 Mean Corpuscular Hemoglobin 28.0 Mean Corpuscular Hemoglobin 33.5 Concent Red Cell Distribution Width 15.6 Platelet Count 204 Mean Platelet Volume 7.8 Neutrophils (%) (Auto) 75.6 Lymphocytes (%) (Auto) 13.0 Monocytes (%) (Auto) 8.3 Eosinophils (%) (Auto) 1.9 Basophils (%) (Auto) 1.2 Neutrophils # (Auto) 5.8 Lymphocytes # (Auto) 1.0 Monocytes # (Auto) 0.6 Eosinophils # (Auto) 0.1 Basophils # (Auto) 0.1 CBC Comment DIFF FINAL Differential Comment Cardiovascular: Regular Lungs: Clear Abdomen: Non-distended, Non-tender Extremities: No edema A/P Assessment and Plan 41 year old male with severe constipation; rule out stercoral ulcer -Continue cathartics -GI following---EGD/Colonoscopy today -VSS -No acute GS needs; we will sign off Attending Statement patient seen at bedside will f/u on egd and colonoscopy non operative intervention from surgery stand point will follow prn Attestation The exam, history, and the medical decision-making described in the above note were completed with the assistance of the mid-level provider. I reviewed and agree with the findings presented. I attest that I had a [id number] encounter with the patient on the same day, and personally performed and documented my assessment and findings in the medical record. Esperanza Cox Dec 04, 2016 11:11 Sixto Howard MD Dec 13, 2016 19:45
[2016-12-04] MEDS ORDERED: DO NOT ADM ANY ANTICOAGULANT DRUGS XX PRN (12:44)
[2016-12-04] MEDS ORDERED: PROPOFOL 200 MG/20 ML AMP IV ONE (13:42)
[2016-12-04] MEDS: RESP: ALBUTEROL 2.5 MG/IPRATROPIUM 0.5 MG NEB (PRN) INH (20:00)
[2016-12-04] MEDS: MESALAMINE 1000 MG SUPP RECTAL SCH (21:00)
[2016-12-05] VITALS (7 sets, daily range): BP systolic 124–146; BP diastolic 75–90; PULSE 88–100; RESP 18–20; TEMP 98–99.9; O2SAT 97–100
[2016-12-05] MEDS: MAGNESIUM OXIDE 400 MG TAB PO SCH ×3 (00:15→23:24)
[2016-12-05] MEDS: INSULIN NovoLIN REGULAR SUPPLEMENTAL SCALE SQ SCH ×6 (00:18→23:25)
[2016-12-05] MEDS: LACTATED RINGER'S 1000 ML INJ 1,000 ML IV SCH (03:14)
[2016-12-05] MEDS: CHLORHEXIDINE GLUCONATE 2 % 1 PACK (2 CLOTHS) TOP SCH (04:00)
[2016-12-05] MEDS: CEFEPIME INJ 1,000 MG in SODIUM CHLORIDE 0.9% INJ 100 ML IV SCH ×3 (04:00→20:51)
[2016-12-05] MEDS: SODIUM CHLOR 0.9% 1000 ML INJ 1,000 ML IV SCH ×4 (05:00→22:10)
[2016-12-05] MEDS: metroNIDAZOLE 500 MG INJ 100 ML IV SCH ×4 (05:00→22:56)
[2016-12-05] MEDS: ACETAMINOPHEN/HYDROcodone 325 MG/5 MG TAB PO PRN ×5 (05:30→22:51)
[2016-12-05 08:26] LABS: HEMATOCRIT 28.1 % (39.0-51.0); MEAN CELL VOLUME 83.2 FL (80.0-100.0); MEAN CORPUSCULAR HEMOGLOBIN 28.5 PG (27.0-34.0); MEAN CORPUSCULAR HGB CONC 34.2 % (32.0-36.0); PLATELET COUNT 203 TH/MM3 (150-450); RED BLOOD COUNT 3.37 MIL/MM3 (4.50-5.90); REVIEW FLAG FINAL; WHITE BLOOD COUNT 6.1 TH/MM3 (4.0-11.0)
[2016-12-05 08:51] LABS: BICARBONATE 18.3 MEQ/L (21.0-32.0); POTASSIUM 3.4 MEQ/L (3.5-5.1)
[2016-12-05 09:11] LABS: CALCIUM-PROTEIN CORRECTED 7.7 MG/DL (8.5-10.1)
[2016-12-05] MEDS: CALCIUM CARBONATE 500 MG CHEWABLE TAB CHEW SCH ×2 (09:11→20:49)
[2016-12-05] MEDS: LACTOBACILLUS ACIDOPHILUS TAB PO SCH ×2 (09:11→20:49)
[2016-12-05] MEDS: DOCUSATE SODIUM 50 MG/SENNA 8.6 MG TAB PO SCH ×2 (09:11→20:49)
[2016-12-05] MEDS: PANTOPRAZOLE SODIUM 40 MG VIAL IV SCH (09:14)
[2016-12-05] MEDS: BISACODYL 10 MG SUPP RECTAL SCH (09:15)
[2016-12-05] MEDS: SODIUM CHLORIDE 0.9% FLUSH 5 ML FLUSH IV FLUSH SCH ×2 (09:15→20:51)
--- NOTE | 2016-12-05 12:13 | HHI.PR ---
Subjective Remarks Says pain is fairly controlled by meds. No n/v/d/c. He is able to eat. No fever or chills. Objective Vitals Vital Signs Date Time Temp Pulse Resp B/P Pulse Ox O2 Delivery O2 Flow Rate FiO2 12/05/16 12:00 98.5 100 20 124/85 100 12/05/16 10:54 97 21 12/05/16 08:00 98.9 88 20 146/90 98 12/05/16 06:30 1 12/05/16 04:00 98.0 88 19 125/75 99 12/05/16 00:00 98.2 100 18 133/82 100 12/04/16 21:00 98.5 98 17 122/79 100 12/04/16 20:01 100 21 12/04/16 16:00 95.8 97 16 118/77 100 12/04/16 13:05 86 16 121/76 98 12/04/16 12:55 86 16 112/75 98 12/04/16 12:45 98.2 86 16 108/73 97 I/O 12/04/16 12/04/16 12/04/16 12/05/16 12/05/16 12/05/16 07:00 15:00 23:00 07:00 15:00 23:00 Intake Total 200 ml 900 ml 600 ml Output Total 750 ml 1875 ml 800 ml 2000 ml Balance -750 ml -1675 ml 100 ml -1400 ml Intake Oral 900 ml 600 ml Other 200 ml Output Urine Total 750 ml 1875 ml 800 ml 2000 ml # Bowel Movements 0 3 1 Result Diagram: 12/05/16 0752 12/05/16 0752 Imaging Last Impressions Head CT 12/02/16 0000 Signed Impressions: Service Date/Time: Friday, December 02, 2016 14:39 - CONCLUSION: No acute disease. Kan Altamirano MD Chest X-Ray 11/30/16 0600 Signed Impressions: Service Date/Time: November 04:05 - CONCLUSION: Developing right lung infiltrate. Kan Lyons MD Abdomen/Pelvis CT 11/28/16 0054 Signed Impressions: Service Date/Time: Monday, November 28, 2016 01:47 - CONCLUSION: Severe constipation. No acute CT findings. Kan Lyons MD Objective Remarks GENERAL: Critically ill, cachectic middle-aged male, lying in bed. Pale. HEENT: Sunken bitemporal bones. Atraumatic. Pupils equal, round and reactive. Mucous membranes are dry. NECK: Trachea is midline. There is no JVD. CHEST: Equal chest rise. Clear to auscultation. CARDIOVASCULAR: Regular rhythm. No appreciable murmurs. ABDOMEN: Small healed scar subxiphoid from prior PEG tube placement. Diffuse tenderness to palpation. There is no guarding. No hepatosplenomegaly. MUSCULOSKELETAL: Distal pulses 2+. No pitting Edema. NEUROLOGICAL: Alert, awake, oriented. Follows commands in all 4 extremities. A/P Assessment and Plan Assessment: This is a 41-year-old male with a history of failure to thrive who presents with multiple acute on chronic medical problems including kidney injury , septic shock, diarrhea, possible colitis. He is very critically ill this time , and descending obstruction has to be ruled out. We will admit him to the ICU and monitor him carefully. We will empirically cover him with antibiotics and await culture data. Gi, general surgery and ID following Plan by systems: Neurologic: Metabolic encephalopathy q1h neurochecks Avoid long-acting sedating meds - Will do CT scan Respiratory: Atelectasis Wean oxygen by nasal cannula for goal SPO2 greater than 92% Incentive spirometer to bedside Cardiovascular: Sinus tachycardia Septic shock-resolved Status post 4 L normal saline. MIVF LR @ 200cc/hr-reduce to 100 ml per hour --critical care bedside ultrasound 11/28: poor acoustic windows. grossly preserved biventricular function with moderately collapsable IVC with quiet respiration. --trend lactate back to normal --Off norepinephrine Renal: Acute Kidney Injury --Mancia, q1h uop, strict i/o's --may be multifactorial, including pre-renal secondary to shock --Strict I/Os FEN/GI: Diarrhea Lactic Acidosis Severe constipation on CT with abdominal pain and lactic acidosis, R/o obstruction, mass Acute protein calorie malnutrition- severe bmi 16, sunken bitemporal muscle Hypomagnesemia Acute intravascular volume depletion Severe Dehydration Hyponatremia --S/P EGD colonoscopy 11/29. GI and general surgery following --ICU electrolyte protocol. daily BMP --likely hypovolemic hyponatremia secondary to severe diarrhea --S/p colonoscopy 12/04/16 report pending --Replace electrolytes Heme/ID: Septic Shock resolved Anemia, likely secondary to chronic disease --f/u blood, sputum, urine cultures --continue Cefepime 1gm iv q8h, continue Flagyl 500mg iv q6h --Colitis is the most likely source at this point --1 unit prbc now given hemodynamic instability --recheck hgb stable --daily CBC Endocrine: Hyperglycemia Hypothermia -- SSI, medium scale, q6h --random cortisol 47, unlikely to be adrenal insufficiency --aggressive warming with BairHugger-now off Prophylaxis: GI Prophylaxis Protonix 40 mg IV every 24 hours DVT Prophylaxis -- SCDs SQH 5000 [id number] due to thrombocytopenia Lines: Gavino Dispo: DC when improved and cleared by consultants s/p colonoscopy 12/04 report pending Mary Chiang MD Dec 05, 2016 12:12
[2016-12-05] MEDS: MESALAMINE 1000 MG SUPP RECTAL SCH ×2 (21:00→22:50)
[2016-12-06] VITALS (7 sets, daily range): BP systolic 124–146; BP diastolic 82–88; PULSE 85–104; RESP 17–20; TEMP 97.6–100; O2SAT 92–100
[2016-12-06] MEDS: ACETAMINOPHEN/HYDROcodone 325 MG/5 MG TAB PO PRN ×5 (03:51→21:48)
[2016-12-06] MEDS: CEFEPIME INJ 1,000 MG in SODIUM CHLORIDE 0.9% INJ 100 ML IV SCH ×3 (04:00→21:45)
[2016-12-06] MEDS: metroNIDAZOLE 500 MG INJ 100 ML IV SCH ×4 (04:00→21:50)
[2016-12-06] MEDS: CHLORHEXIDINE GLUCONATE 2 % 1 PACK (2 CLOTHS) TOP SCH (04:00)
[2016-12-06] MEDS: SODIUM CHLOR 0.9% 1000 ML INJ 1,000 ML IV SCH ×4 (05:00→22:00)
[2016-12-06] MEDS: INSULIN NovoLIN REGULAR SUPPLEMENTAL SCALE SQ SCH ×3 (06:28→18:27)
[2016-12-06] MEDS: LACTOBACILLUS ACIDOPHILUS TAB PO SCH ×2 (08:35→21:00)
[2016-12-06] MEDS: CALCIUM CARBONATE 500 MG CHEWABLE TAB CHEW SCH ×2 (08:35→21:45)
[2016-12-06] MEDS: BISACODYL 10 MG SUPP RECTAL SCH (08:36)
[2016-12-06] MEDS: SODIUM CHLORIDE 0.9% FLUSH 5 ML FLUSH IV FLUSH SCH (08:36)
[2016-12-06] MEDS: PANTOPRAZOLE SODIUM 40 MG VIAL IV SCH (08:36)
[2016-12-06] MEDS: DOCUSATE SODIUM 50 MG/SENNA 8.6 MG TAB PO SCH ×2 (08:37→21:00)
[2016-12-06] MEDS: MAGNESIUM OXIDE 400 MG TAB PO SCH ×2 (11:57→21:58)
--- NOTE | 2016-12-06 12:23 | RADRPT ---
EXAM DATE/TIME: 12/06/2016 11:38 [facility] COMPARISON: CHEST SINGLE AP, November 30, 2016, 4:05. INDICATIONS : Cough. MEDICAL HISTORY : Hypertension. Diabetes mellitus type II. SURGICAL HISTORY : Vasectomy. ENCOUNTER: Subsequent ACUITY: 1 week PAIN SCORE: 8/10 LOCATION: chest FINDINGS: Minimal parenchymal opacity is present right base increasing in interval. The left lung is clear. Th e heart and pulmonary vascularity are normal. The portion of the bony skeleton visualized is unremark able. CONCLUSION: Increasing parenchymal opacity right base. Ganesh Jaquez MD FACR on December 06, 2016 at 12:20 Board Certified Radiologist. This report was verified electronically.
[2016-12-06] MEDS: LACTATED RINGER'S 1000 ML INJ 1,000 ML IV SCH (12:34)
--- NOTE | 2016-12-06 13:43 | HHI.GIFU ---
Subjective Remarks Resting in bed. No n/v. No abdominal pain at this time. Still having diarrhea , 3 loose stools today. (RestrepoJolly Mejia KATERINE) Objective Vitals I&O Vital Signs Date Time Temp Pulse Resp B/P Pulse Ox O2 Delivery O2 Flow Rate FiO2 12/06/16 13:26 16 12/06/16 13:09 98.9 104 20 124/82 98 12/06/16 08:38 97.6 85 20 138/88 99 12/06/16 04:44 98.3 89 17 138/86 99 12/06/16 00:31 98.0 97 18 146/88 100 12/05/16 20:12 98.3 99 18 135/81 98 12/05/16 16:00 99.9 91 20 124/80 99 I/O 12/05/16 12/05/16 12/05/16 12/06/16 12/06/16 12/06/16 07:00 15:00 23:00 07:00 15:00 23:00 Intake Total 600 ml 700 ml Output Total 2000 ml 1425 ml 1100 ml Balance -1400 ml -1425 ml -400 ml Intake Oral 600 ml 700 ml Output Urine Total 2000 ml 1425 ml 1100 ml # Bowel Movements 1 1 2 3 2 Imaging Last Impressions Chest X-Ray 12/06/16 0000 Signed Impressions: Service Date/Time: Tuesday, December 06, 2016 11:38 - CONCLUSION: Increasing parenchymal opacity right base. Ganesh Jaquez MD FACR Head CT 12/02/16 0000 Signed Impressions: Service Date/Time: Friday, December 02, 2016 14:39 - CONCLUSION: No acute disease. Kan Altamirano MD Abdomen/Pelvis CT 11/28/16 0054 Signed Impressions: Service Date/Time: Monday, November 28, 2016 01:47 - CONCLUSION: Severe constipation. No acute CT findings. Kan Lyons MD Physical Exam HEENT: Cachexia, normocephalic; atraumatic; no jaundice. CHEST: CTA CARDIAC: RRR ABDOMEN: Soft, nondistended, nontender; no hepatosplenomegaly; bowel sounds are present in all four quadrants. EXTREMITIES: No clubbing, cyanosis, or edema. SKIN: Normal; no rash; no jaundice. DEPUTY DIRECTOR OF NURSING: No focal deficits; lethargic, forgetful (Jolly Restrepo) Assessment and Plan Plan ASSESSMENT: - Abdominal pain more on RLQ, diarrhea ( negative for C-diff), stool cx negative. Abdomen/Pelvis CT (11/28/16)----> Severe constipation. No acute CT findings. S/P EGD/colonoscopy on (11/29/16) showed esophagitis, poor colonic prep, no signs of bleeding. Pathology acutely inflamed and markedly reactive ulcerated squamous mucosa with a small number budding yeast in the superficial squamous layers consistent with Claudia esophagitis. S/P Colonoscopy with 2 day prep (12/04/16)---> ulceration, colitis in descending sigmiod, rectum, s/p biopsies , retroflexed views medium internal hemorrhoids, internal hemorrhoids, external hemorrhoids. Pathology colonic mucosal biopsy without significant histopathologic abnormality malady negative for colitis and ulceration in the descending colon ulcer biopsy, sigmoid colon with mild acute nonspecific colitis, rectal biopsy with acute colitis exhibiting ischemic features S/P GS evaluation. Canasa Suppository. - Claudia esophagitis. PPI. Add Diflucan. - Constipation with ? overflow diarrhea. s/p SSE X 3, Dulcolax supp, senna. No BM today. - Anemia (normocytic, normochromic )- likely multifactorial. 9.6/28.1. - Failure to thrive/ wt loss- unknown etiology, patient states he has been eating, denies nausea or vomiting - Sepsis. IMPROVED, ID following. - Hyponatremia- resolved - Hypokalemia per attending - AKF Resolved - Fibromyalgia/ HTN, CAD, DM per attending Plan: - JHONY - Canasa Suppositories - PPI - Add Diflucan 200mg mg po daily x 14 days - Cont. bowel regimen - Monitor HH - Transfuse as needed - Patient seen and examined by Dr. Cosby and myself and this note is written on her behalf. (Jolly Restrepo) Physician Comments agree with above (Allison Cosby MD) Jolly Restrepo Dec 06, 2016 13:43 Allison Cosby MD Dec 06, 2016 19:47
--- NOTE | 2016-12-06 14:44 | HHI.PR ---
Subjective Remarks Patient says he had diarrhea today, however he doesn't know how many times. No n /v/d/c. Denies cp, sob. Pain is controlled by meds. Objective Vitals Vital Signs Date Time Temp Pulse Resp B/P Pulse Ox O2 Delivery O2 Flow Rate FiO2 12/06/16 13:26 16 12/06/16 13:09 98.9 104 20 124/82 98 12/06/16 11:35 92 21 12/06/16 08:38 97.6 85 20 138/88 99 12/06/16 04:44 98.3 89 17 138/86 99 12/06/16 00:31 98.0 97 18 146/88 100 12/05/16 20:12 98.3 99 18 135/81 98 12/05/16 16:00 99.9 91 20 124/80 99 I/O 12/05/16 12/05/16 12/05/16 12/06/16 12/06/16 12/06/16 07:00 15:00 23:00 07:00 15:00 23:00 Intake Total 600 ml 700 ml Output Total 2000 ml 1425 ml 1100 ml Balance -1400 ml -1425 ml -400 ml Intake Oral 600 ml 700 ml Output Urine Total 2000 ml 1425 ml 1100 ml # Bowel Movements 1 1 2 3 2 Result Diagram: 12/05/16 0752 12/05/16 0752 Imaging Last Impressions Chest X-Ray 12/06/16 0000 Signed Impressions: Service Date/Time: Tuesday, December 06, 2016 11:38 - CONCLUSION: Increasing parenchymal opacity right base. Ganesh Jaquez MD FACR Head CT 12/02/16 0000 Signed Impressions: Service Date/Time: Friday, December 02, 2016 14:39 - CONCLUSION: No acute disease. Kan Altamirano MD Abdomen/Pelvis CT 11/28/16 0054 Signed Impressions: Service Date/Time: Monday, November 28, 2016 01:47 - CONCLUSION: Severe constipation. No acute CT findings. Kan Lyons MD Objective Remarks GENERAL: Critically ill, cachectic middle-aged male, lying in bed. Pale. HEENT: Sunken bitemporal bones. Atraumatic. Pupils equal, round and reactive. Mucous membranes are dry. NECK: Trachea is midline. There is no JVD. CHEST: Equal chest rise. Clear to auscultation. CARDIOVASCULAR: Regular rhythm. No appreciable murmurs. ABDOMEN: Small healed scar subxiphoid from prior PEG tube placement. Diffuse tenderness to palpation. There is no guarding. No hepatosplenomegaly. MUSCULOSKELETAL: Distal pulses 2+. No pitting Edema. NEUROLOGICAL: Alert, awake, oriented. Follows commands in all 4 extremities. A/P Assessment and Plan Assessment: This is a 41-year-old male with a history of failure to thrive who presents with multiple acute on chronic medical problems including kidney injury , septic shock, diarrhea, possible colitis. He is very critically ill this time , and descending obstruction has to be ruled out. We will admit him to the ICU and monitor him carefully. We will empirically cover him with antibiotics and await culture data. Gi, general surgery and ID following Plan by systems: Neurologic: Metabolic encephalopathy q1h neurochecks Avoid long-acting sedating meds - Will do CT scan Respiratory: Atelectasis Wean oxygen by nasal cannula for goal SPO2 greater than 92% Incentive spirometer to bedside Cardiovascular: Sinus tachycardia Septic shock-resolved Status post 4 L normal saline. MIVF LR @ 200cc/hr-reduce to 100 ml per hour --critical care bedside ultrasound 11/28: poor acoustic windows. grossly preserved biventricular function with moderately collapsable IVC with quiet respiration. --trend lactate back to normal --Off norepinephrine Renal: Acute Kidney Injury --Mancia, q1h uop, strict i/o's --may be multifactorial, including pre-renal secondary to shock --Strict I/Os FEN/GI: Diarrhea Lactic Acidosis Severe constipation on CT with abdominal pain and lactic acidosis, R/o obstruction, mass Acute protein calorie malnutrition- severe bmi 16, sunken bitemporal muscle Hypomagnesemia Acute intravascular volume depletion Severe Dehydration Hyponatremia --S/P EGD colonoscopy 11/29. GI and general surgery following --ICU electrolyte protocol. daily BMP --likely hypovolemic hyponatremia secondary to severe diarrhea --S/p colonoscopy 12/04/16 report pending --Replace electrolytes Heme/ID: Septic Shock resolved Anemia, likely secondary to chronic disease --f/u blood, sputum, urine cultures --continue Cefepime 1gm iv q8h, continue Flagyl 500mg iv q6h --Colitis is the most likely source at this point --1 unit prbc now given hemodynamic instability --recheck hgb stable --daily CBC Endocrine: Hyperglycemia Hypothermia -- SSI, medium scale, q6h --random cortisol 47, unlikely to be adrenal insufficiency --aggressive warming with BairHugger-now off Prophylaxis: GI Prophylaxis Protonix 40 mg IV every 24 hours DVT Prophylaxis -- SCDs SQH 5000 [id number] due to thrombocytopenia Lines: Gavino Dispo: DC when improved and cleared by consultants Mary Chiang MD Dec 06, 2016 14:44
[2016-12-06] MEDS ORDERED: CALCIUM GLUCONATE INJ 1 GM in SODIUM CHLORIDE 0.9% INJ 100 ML IV ONE (16:00)
[2016-12-06] MEDS: MESALAMINE 1000 MG SUPP RECTAL SCH (21:00)
[2016-12-07] VITALS (7 sets, daily range): BP systolic 118–147; BP diastolic 78–95; PULSE 87–113; RESP 18–20; TEMP 97.4–100; O2SAT 95–100
[2016-12-07] MEDS: INSULIN NovoLIN REGULAR SUPPLEMENTAL SCALE SQ SCH ×4 (01:40→18:39)
[2016-12-07] MEDS: CHLORHEXIDINE GLUCONATE 2 % 1 PACK (2 CLOTHS) TOP SCH (04:00)
[2016-12-07] MEDS: CEFEPIME INJ 1,000 MG in SODIUM CHLORIDE 0.9% INJ 100 ML IV SCH ×2 (04:52→11:41)
[2016-12-07] MEDS: metroNIDAZOLE 500 MG INJ 100 ML IV SCH ×4 (04:52→21:13)
[2016-12-07] MEDS: ACETAMINOPHEN/HYDROcodone 325 MG/5 MG TAB PO PRN ×5 (04:52→21:12)
[2016-12-07] MEDS: SODIUM CHLOR 0.9% 1000 ML INJ 1,000 ML IV SCH ×2 (08:21→15:09)
[2016-12-07] MEDS: SODIUM CHLORIDE 0.9% FLUSH 5 ML FLUSH IV FLUSH SCH ×2 (08:45→21:00)
[2016-12-07] MEDS: CALCIUM CARBONATE 500 MG CHEWABLE TAB CHEW SCH ×2 (08:45→21:12)
[2016-12-07] MEDS: LACTOBACILLUS ACIDOPHILUS TAB PO SCH ×2 (08:46→21:12)
[2016-12-07] MEDS: FLUCONAZOLE 200 MG TAB PO SCH (08:46)
[2016-12-07] MEDS: PANTOPRAZOLE SODIUM 40 MG VIAL IV SCH (08:48)
[2016-12-07] MEDS: DOCUSATE SODIUM 50 MG/SENNA 8.6 MG TAB PO SCH ×2 (08:49→21:00)
[2016-12-07] MEDS: BISACODYL 10 MG SUPP RECTAL SCH (08:49)
[2016-12-07] MEDS: MAGNESIUM OXIDE 400 MG TAB PO SCH (11:40)
--- NOTE | 2016-12-07 12:11 | HHI.IDPN ---
Note Infectious Disease Note Patient is coughing. No sputum production. No chest pain. Notes pain in rectum. Has loose stools. . Afebrile. Started on Fluconazole for Claudia esophagitis. Colon biopsy shows acute colitis with ischemic features on path. PAST MEDICAL HISTORY 1. Diabetes mellitus reportedly improved after he lost a lot of weight 2. Arthritis, 3. Coronary artery disease, 4. Hypercholesteremia, 5. Congestive heart failure, 6. Fibromyalgia, 7. Gastroesophageal reflux disease, 8. Hepatitis, 9. Gout. 10. Hypertension, 11. kidney stones 12. History of left hip surgery, 13. History of right nephro lithotripsy and a J-tube stent 14. vasectomy. ALLERGIES NO KNOWN DRUG ALLERGIES. ANTIBIOTICS: Flagyl IV. Cefepime. Fluconazole. SOCIAL HISTORY No tobacco use. Occasional alcohol. Positive cocaine use. OBJECTIVE: Vital Signs Date Time Temp Pulse Resp B/P Pulse Ox O2 Delivery O2 Flow Rate FiO2 12/07/16 09:50 16 12/07/16 08:00 97.6 100 20 133/89 100 12/07/16 04:00 99.4 100 18 118/82 97 12/07/16 00:00 97.8 87 20 127/80 95 12/06/16 20:00 98.0 100 18 131/87 98 12/06/16 16:08 100.0 104 20 133/82 99 12/06/16 13:09 98.9 104 20 124/82 98 Laboratory Tests Test 11/30/16 12/01/16 12/01/16 03:49 00:09 05:25 White Blood Count 6.9 TH/MM3 4.5 TH/MM3 Red Blood Count 2.58 MIL/MM3 3.21 MIL/MM3 Hemoglobin 7.2 GM/DL 8.8 GM/DL 9.0 GM/DL Hematocrit 20.7 % 26.0 % 25.6 % Mean Corpuscular Volume 80.3 FL 80.0 FL Mean Corpuscular Hemoglobin 27.8 PG 28.0 PG Mean Corpuscular Hemoglobin 34.6 % 35.0 % Concent Red Cell Distribution Width 15.2 % 15.2 % Platelet Count 74 TH/MM3 96 TH/MM3 Mean Platelet Volume 8.6 FL 8.5 FL Neutrophils (%) (Auto) 84.1 % Lymphocytes (%) (Auto) 10.9 % Monocytes (%) (Auto) 4.3 % Eosinophils (%) (Auto) 0.5 % Basophils (%) (Auto) 0.2 % Neutrophils # (Auto) 5.8 TH/MM3 Lymphocytes # (Auto) 0.8 TH/MM3 Monocytes # (Auto) 0.3 TH/MM3 Eosinophils # (Auto) 0.0 TH/MM3 Basophils # (Auto) 0.0 TH/MM3 CBC Comment AUTO DIFF Differential Comment AUTO DIFF CONFIRMED Platelet Estimate LOW Platelet Morphology Comment ENLARGED Acanthocytes OCC IMAGING; Chest X-Ray 12/06/16 0000 Signed Impressions: Service Date/Time: Tuesday, December 06, 2016 11:38 - CONCLUSION: Increasing parenchymal opacity right base. Ganesh Jaquez MD FACR Chest X-Ray 11/30/16 0600 Signed Impressions: Service Date/Time: November 04:05 - CONCLUSION: Developing right lung infiltrate. Kan Lyons MD Abdomen/Pelvis CT 11/28/16 0054 Signed Impressions: Service Date/Time: Monday, November 28, 2016 01:47 - CONCLUSION: Severe constipation. No acute CT findings. Kan Lyons MD Chest X-Ray 11/28/16 0000 Signed Impressions: Service Date/Time: Monday, November 28, 2016 03:24 - CONCLUSION: No acute disease. Kan Lyons MD PHYSICAL EXAMINATION GENERAL: Cachectic. No acute distress. He is awake, alert and oriented. HEENT: Oropharynx no visible lesions. NECK: Supple without adenopathy. LUNGS: Clear breath sound. Decreased. HEART: Distant S1-S2 without audible murmurs, rubs or gallops. ABDOMEN: Positive bowel sounds. Non tender. EXTREMITIES: No clubbing, cyanosis or edema. Diffuse muscle wasting throughout. SKIN: No rash. NEUROLOGIC: Nonfocal. PSYCHIATRIC: Calm and cooperative. IMPRESSION 1. Septic shock. Improved. 2. Diarrhea. Stool studies negative. Still having diarrhea. 3. Severe protein calorie malnutrition. 4. R. lung infiltrate on CXR. ?pneumonia vs atelectasis. 5. Claudia esophagitis. 6. Colitis. RECOMMENDATIONS 1. Continue Flagyl. 2. Stop Cefepime 3. send stool c. diff. 4. Continue Fluconazole. Wilber Nunez MD Dec 07, 2016 12:11
--- NOTE | 2016-12-07 13:40 | HHI.PR ---
Subjective Remarks Patient is in nad. Says she is hungry and he wants to eat more. No n/v/d/c. Will change diet to regular and to bring 2 trays. Patient might need more insulin coverage Objective Vitals Vital Signs Date Time Temp Pulse Resp B/P Pulse Ox O2 Delivery O2 Flow Rate FiO2 12/07/16 09:50 16 12/07/16 08:00 97.6 100 20 133/89 100 12/07/16 04:00 99.4 100 18 118/82 97 12/07/16 00:00 97.8 87 20 127/80 95 12/06/16 20:00 98.0 100 18 131/87 98 12/06/16 16:08 100.0 104 20 133/82 99 I/O 12/06/16 12/06/16 12/06/16 12/07/16 12/07/16 12/07/16 07:00 15:00 23:00 07:00 15:00 23:00 Intake Total 700 ml 1105 ml Output Total 1100 ml 350 ml Balance -400 ml -350 ml 1105 ml Intake Oral 700 ml IV Total 1105 ml Output Urine Total 1100 ml 350 ml # Voids 10 # Bowel Movements 3 2 1 Result Diagram: 12/05/16 0752 12/05/16 0752 Imaging Last Impressions Chest X-Ray 12/06/16 0000 Signed Impressions: Service Date/Time: Tuesday, December 06, 2016 11:38 - CONCLUSION: Increasing parenchymal opacity right base. Ganesh Jaquez MD FACR Head CT 12/02/16 0000 Signed Impressions: Service Date/Time: Friday, December 02, 2016 14:39 - CONCLUSION: No acute disease. Kan Altamirano MD Abdomen/Pelvis CT 11/28/16 0054 Signed Impressions: Service Date/Time: Monday, November 28, 2016 01:47 - CONCLUSION: Severe constipation. No acute CT findings. Kan Lyons MD Objective Remarks GENERAL: Critically ill, cachectic middle-aged male, lying in bed. Pale. HEENT: Sunken bitemporal bones. Atraumatic. Pupils equal, round and reactive. Mucous membranes are dry. NECK: Trachea is midline. There is no JVD. CHEST: Equal chest rise. Clear to auscultation. CARDIOVASCULAR: Regular rhythm. No appreciable murmurs. ABDOMEN: Small healed scar subxiphoid from prior PEG tube placement. Diffuse tenderness to palpation. There is no guarding. No hepatosplenomegaly. MUSCULOSKELETAL: Distal pulses 2+. No pitting Edema. NEUROLOGICAL: Alert, awake, oriented. Follows commands in all 4 extremities. A/P Assessment and Plan Assessment: This is a 41-year-old male with a history of failure to thrive who presents with multiple acute on chronic medical problems including kidney injury , septic shock, diarrhea, possible colitis. He is very critically ill this time , and descending obstruction has to be ruled out. We will admit him to the ICU and monitor him carefully. We will empirically cover him with antibiotics and await culture data. Gi, general surgery and ID following Plan by systems: Neurologic: Metabolic encephalopathy q1h neurochecks Avoid long-acting sedating meds - Will do CT scan Respiratory: Atelectasis Wean oxygen by nasal cannula for goal SPO2 greater than 92% Incentive spirometer to bedside Cardiovascular: Sinus tachycardia Septic shock-resolved Status post 4 L normal saline. MIVF LR @ 200cc/hr-reduce to 100 ml per hour --critical care bedside ultrasound 11/28: poor acoustic windows. grossly preserved biventricular function with moderately collapsable IVC with quiet respiration. --trend lactate back to normal --Off norepinephrine Renal: Acute Kidney Injury --Mancia, q1h uop, strict i/o's --may be multifactorial, including pre-renal secondary to shock --Strict I/Os FEN/GI: Diarrhea Lactic Acidosis Severe constipation on CT with abdominal pain and lactic acidosis, R/o obstruction, mass Acute protein calorie malnutrition- severe bmi 16, sunken bitemporal muscle. Improving. Change diet to regular and bring 2 trays patient says he is hungry. Monitor BS and might need more insulin coverage Hypomagnesemia Acute intravascular volume depletion Severe Dehydration Hyponatremia --S/P EGD colonoscopy 11/29. GI and general surgery following --ICU electrolyte protocol. daily BMP --likely hypovolemic hyponatremia secondary to severe diarrhea --S/p colonoscopy 12/04/16 report pending --Replace electrolytes Heme/ID: Septic Shock resolved Anemia, likely secondary to chronic disease --f/u blood, sputum, urine cultures --continue Cefepime 1gm iv q8h, continue Flagyl 500mg iv q6h --Colitis is the most likely source at this point --1 unit prbc now given hemodynamic instability --recheck hgb stable --daily CBC Endocrine: Hyperglycemia Hypothermia -- SSI, medium scale, q6h --random cortisol 47, unlikely to be adrenal insufficiency --aggressive warming with BairHugger-now off Prophylaxis: GI Prophylaxis Protonix 40 mg IV every 24 hours DVT Prophylaxis -- SCDs SQH 5000 [id number] due to thrombocytopenia Lines: Gavino Dispo: DC when improved and cleared by consultants Mary Chiang MD Dec 07, 2016 13:40
[2016-12-07] MEDS: RESP: ALBUTEROL 2.5 MG/IPRATROPIUM 0.5 MG NEB (PRN) INH (16:57)
[2016-12-07] MEDS: MESALAMINE 1000 MG SUPP RECTAL SCH (21:13)
[2016-12-07] MEDS: LACTATED RINGER'S 1000 ML INJ 1,000 ML IV SCH (21:54)
[2016-12-07 23:52] LABS: ANION GAP 11 MEQ/L (5-15); BICARBONATE 15.6 MEQ/L (21.0-32.0); BLOOD UREA NITROGEN 4 MG/DL (7-18); CHLORIDE 113 MEQ/L (98-107); GLOMERULAR FILTRATION RATE 129 ML/MIN (>89); POTASSIUM 3.3 MEQ/L (3.5-5.1); SODIUM (NA) 140 MEQ/L (136-145)
[2016-12-08] VITALS (7 sets, daily range): BP systolic 105–133; BP diastolic 67–78; PULSE 102–112; RESP 20; TEMP 97.7–98.9; O2SAT 96–100
[2016-12-08] MEDS: INSULIN NovoLIN REGULAR SUPPLEMENTAL SCALE SQ SCH ×5 (00:10→23:41)
[2016-12-08] MEDS: SODIUM CHLOR 0.9% 1000 ML INJ 1,000 ML IV SCH ×3 (00:11→18:11)
[2016-12-08] MEDS: CHLORHEXIDINE GLUCONATE 2 % 1 PACK (2 CLOTHS) TOP SCH (04:00)
[2016-12-08] MEDS: metroNIDAZOLE 500 MG INJ 100 ML IV SCH ×4 (04:35→20:20)
[2016-12-08 06:05] LABS: C. DIFF EPI 027 PRESUMPTIVE NEGATIVE (NEGATIVE); C. DIFF TOXIN PCR NEGATIVE (NEGATIVE)
[2016-12-08] MEDS: ACETAMINOPHEN/HYDROcodone 325 MG/5 MG TAB PO PRN ×4 (06:30→20:20)
[2016-12-08 08:55] LABS: BICARBONATE 14.1 MEQ/L (21.0-32.0); POTASSIUM 3.9 MEQ/L (3.5-5.1)
[2016-12-08] MEDS: DOCUSATE SODIUM 50 MG/SENNA 8.6 MG TAB PO SCH (09:00)
[2016-12-08] MEDS: BISACODYL 10 MG SUPP RECTAL SCH (09:00)
[2016-12-08 09:08] LABS: AUTOMATED NEUTROPHIL # 3.1 TH/MM3 (1.8-7.7); BASOPHIL # 0.1 TH/MM3 (0-0.2); BASOPHIL % 1.4 % (0.0-2.0); EOSINOPHIL # 0.1 TH/MM3 (0-0.4); EOSINOPHIL % 2.3 % (0.0-4.0); HEMATOCRIT 24.8 % (39.0-51.0); HEMO FLAGS DIFF FINAL; LYMPH % 26.6 % (9.0-44.0); LYMPHOCYTE # 1.4 TH/MM3 (1.0-4.8); MEAN CELL VOLUME 82.1 FL (80.0-100.0); MEAN CORPUSCULAR HEMOGLOBIN 28.4 PG (27.0-34.0); MEAN CORPUSCULAR HGB CONC 34.7 % (32.0-36.0); MONO % 8.8 % (0.0-8.0); NEUT % 60.9 % (16.0-70.0); PLATELET COUNT 213 TH/MM3 (150-450); RED BLOOD COUNT 3.03 MIL/MM3 (4.50-5.90); RED CELL DISTRIBUTION WIDTH 17.7 % (11.6-17.2); WHITE BLOOD COUNT 5.1 TH/MM3 (4.0-11.0)
[2016-12-08 09:10] LABS: CALCIUM-PROTEIN CORRECTED 7.6 MG/DL (8.5-10.1)
[2016-12-08] MEDS: PANTOPRAZOLE SODIUM 40 MG VIAL IV SCH (10:09)
[2016-12-08] MEDS: CALCIUM CARBONATE 500 MG CHEWABLE TAB CHEW SCH (10:09)
[2016-12-08] MEDS: FLUCONAZOLE 200 MG TAB PO SCH (10:10)
[2016-12-08] MEDS: LACTOBACILLUS ACIDOPHILUS TAB PO SCH ×2 (10:10→20:17)
[2016-12-08] MEDS: SODIUM CHLORIDE 0.9% FLUSH 5 ML FLUSH IV FLUSH SCH ×2 (10:11→20:20)
[2016-12-08] MEDS: LACTATED RINGER'S 1000 ML INJ 1,000 ML IV SCH (14:34)
--- NOTE | 2016-12-08 14:59 | HHI.PR ---
Subjective Remarks Had diarrhea 3 times today. Says he is hungry, and he can't eat better. No nausea or vomiting. No fever or chills. Feels very weak. He has not been out of bed so far. Objective Vitals Vital Signs Date Time Temp Pulse Resp B/P Pulse Ox O2 Delivery O2 Flow Rate FiO2 12/08/16 12:56 98.6 110 20 114/76 100 12/08/16 11:21 96 12/08/16 08:28 98.0 112 20 133/67 98 12/08/16 04:00 97.7 102 20 117/70 98 12/08/16 00:00 98.5 111 20 114/70 99 12/07/16 20:00 97.4 113 20 129/78 99 12/07/16 17:48 16 12/07/16 17:00 98 12/07/16 16:54 100.0 96 18 147/95 98 I/O 12/07/16 12/07/16 12/07/16 12/08/16 12/08/16 12/08/16 07:00 15:00 23:00 07:00 15:00 23:00 Intake Total 1105 ml 600 ml 2291 ml 1372 ml Output Total 650 ml 600 ml Balance 1105 ml -50 ml 2291 ml 772 ml Intake Oral 600 ml 360 ml 420 ml IV Total 1105 ml 1931 ml 952 ml Output Urine Total 650 ml 600 ml # Voids 10 1 # Bowel Movements 4 1 1 1 Result Diagram: 12/08/16 0754 12/08/16 0754 Imaging Last Impressions Chest X-Ray 12/06/16 0000 Signed Impressions: Service Date/Time: Tuesday, December 06, 2016 11:38 - CONCLUSION: Increasing parenchymal opacity right base. Ganesh Jaquez MD FACR Head CT 12/02/16 0000 Signed Impressions: Service Date/Time: Friday, December 02, 2016 14:39 - CONCLUSION: No acute disease. Kan Altamirano MD Abdomen/Pelvis CT 11/28/16 0054 Signed Impressions: Service Date/Time: Monday, November 28, 2016 01:47 - CONCLUSION: Severe constipation. No acute CT findings. Kan Lyons MD Objective Remarks GENERAL: Critically ill, cachectic middle-aged male, lying in bed. Pale. HEENT: Sunken bitemporal bones. Atraumatic. Pupils equal, round and reactive. Mucous membranes are dry. NECK: Trachea is midline. There is no JVD. CHEST: Equal chest rise. Clear to auscultation. CARDIOVASCULAR: Regular rhythm. No appreciable murmurs. ABDOMEN: Small healed scar subxiphoid from prior PEG tube placement. Diffuse tenderness to palpation. There is no guarding. No hepatosplenomegaly. MUSCULOSKELETAL: Distal pulses 2+. No pitting Edema. NEUROLOGICAL: Alert, awake, oriented. Follows commands in all 4 extremities. A/P Assessment and Plan Assessment: This is a 41-year-old male with a history of failure to thrive who presents with multiple acute on chronic medical problems including kidney injury , septic shock, diarrhea, possible colitis. He is very critically ill this time , and descending obstruction has to be ruled out. We will admit him to the ICU and monitor him carefully. We will empirically cover him with antibiotics and await culture data. Gi, general surgery and ID following Plan by systems: Neurologic: Metabolic encephalopathy q1h neurochecks Avoid long-acting sedating meds - Will do CT scan Respiratory: Atelectasis Wean oxygen by nasal cannula for goal SPO2 greater than 92% Incentive spirometer to bedside Cardiovascular: Sinus tachycardia Septic shock-resolved Status post 4 L normal saline. MIVF LR @ 200cc/hr-reduce to 100 ml per hour --critical care bedside ultrasound 11/28: poor acoustic windows. grossly preserved biventricular function with moderately collapsable IVC with quiet respiration. --trend lactate back to normal --Off norepinephrine Renal: Acute Kidney Injury --Mancia, q1h uop, strict i/o's --may be multifactorial, including pre-renal secondary to shock --Strict I/Os FEN/GI: Diarrhea Lactic Acidosis Severe constipation on CT with abdominal pain and lactic acidosis, R/o obstruction, mass Acute protein calorie malnutrition- severe bmi 16, sunken bitemporal muscle. Improving. Change diet to regular and bring 2 trays patient says he is hungry. Monitor BS and might need more insulin coverage Hypomagnesemia Acute intravascular volume depletion Severe Dehydration Hyponatremia --S/P EGD colonoscopy 11/29. GI and general surgery following --ICU electrolyte protocol. daily BMP --likely hypovolemic hyponatremia secondary to severe diarrhea --S/p colonoscopy 12/04/16 report pending --Replace electrolytes Heme/ID: Septic Shock resolved Anemia, likely secondary to chronic disease --f/u blood, sputum, urine cultures --continue Cefepime 1gm iv q8h, continue Flagyl 500mg iv q6h --Colitis is the most likely source at this point --1 unit prbc now given hemodynamic instability --recheck hgb stable --daily CBC Endocrine: Hyperglycemia Hypothermia -- SSI, medium scale, q6h --random cortisol 47, unlikely to be adrenal insufficiency --aggressive warming with BairHugger-now off Prophylaxis: GI Prophylaxis Protonix 40 mg IV every 24 hours DVT Prophylaxis -- SCDs SQH 5000 [id number] due to thrombocytopenia Lines: Gavino Dispo: DC when improved and cleared by consultants Mary Chiang MD Dec 08, 2016 14:59
--- NOTE | 2016-12-08 17:59 | HHI.GIFU ---
GI Follow-up Note Consult Follow-up Subjective: Patient laying in bed comfortably, having loose stools, has urgency.Feeling hungry, wants more food.One episode of epistaxis.Pathology- ischemic changes in rectum -possible secondary stool impaction. Objective: PHYSICAL EXAMINATION: Vitals signs stable No fever Vital Signs Date Time Temp Pulse Resp B/P Pulse Ox O2 Delivery O2 Flow Rate FiO2 12/08/16 15:38 98.9 112 20 119/78 100 12/08/16 12:56 98.6 110 20 114/76 100 12/08/16 11:21 96 HEENT: Pupils round and reactive to light; normocephalic; atraumatic; no jaundice. Throat is clear. NECK: Neck is supple, no JVD, no lymphadenopathy. CHEST: Chest is clear to auscultation and percussion. CARDIAC: Regular rate and rhythm with no murmur gallop or rubs. ABDOMEN: Soft, nondistended, nontender; no hepatosplenomegaly; bowel sounds are present in all four quadrants. EXTREMITIES: No clubbing, cyanosis, or edema. SKIN: Normal; no rash; no jaundice. HONEY PROCESSOR: No focal deficits; alert and oriented times three. Available Data (labs, X- Rays, Procedues) : Laboratory Tests Test 12/07/16 12/08/16 12/08/16 22:54 04:30 07:54 Sodium Level 140 MEQ/L 136 MEQ/L Potassium Level 3.3 MEQ/L 3.9 MEQ/L Chloride Level 113 MEQ/L 113 MEQ/L Carbon Dioxide Level 15.6 MEQ/L 14.1 MEQ/L Anion Gap 11 MEQ/L 9 MEQ/L Blood Urea Nitrogen 4 MG/DL 3 MG/DL Creatinine 0.67 MG/DL 0.62 MG/DL Estimat Glomerular Filtration 129 ML/MIN 142 ML/MIN Rate Random Glucose 271 MG/DL 196 MG/DL Calcium Level 6.7 MG/DL 6.5 MG/DL Protein Corrected Calcium 8.0 MG/DL 7.6 MG/DL Phosphorus Level LESS THAN 0.1 MG/DL Total Protein 4.6 GM/DL 4.9 GM/DL Stool C. difficile Toxin (PCR) NEGATIVE Stl C. difficile Toxin PRESUMPTIVE Epiderm 027 NEGATIVE White Blood Count 5.1 TH/MM3 Red Blood Count 3.03 MIL/MM3 Hemoglobin 8.6 GM/DL Hematocrit 24.8 % Mean Corpuscular Volume 82.1 FL Mean Corpuscular Hemoglobin 28.4 PG Mean Corpuscular Hemoglobin 34.7 % Concent Red Cell Distribution Width 17.7 % Platelet Count 213 TH/MM3 Mean Platelet Volume 8.4 FL Neutrophils (%) (Auto) 60.9 % Lymphocytes (%) (Auto) 26.6 % Monocytes (%) (Auto) 8.8 % Eosinophils (%) (Auto) 2.3 % Basophils (%) (Auto) 1.4 % Neutrophils # (Auto) 3.1 TH/MM3 Lymphocytes # (Auto) 1.4 TH/MM3 Monocytes # (Auto) 0.4 TH/MM3 Eosinophils # (Auto) 0.1 TH/MM3 Basophils # (Auto) 0.1 TH/MM3 CBC Comment DIFF FINAL Differential Comment Hematology Comments Magnesium Level 1.0 MG/DL ASSESSMENT/PLAN: fecal impaction resolved-possible overflow diarrhea rectal ulcers , most likely secondary fecal impaction malnutrition-secondary poorly controlled diabetes Recommendations d/c laxatives continue Canasa suppositories supportive care It was a pleasure seeing Dalton Arce. Thank you for this consult. Entered by: Allison Raphael MD Dec 08, 2016 17:59
[2016-12-08] MEDS: MESALAMINE 1000 MG SUPP RECTAL SCH (20:17)
[2016-12-09] VITALS: BP 117/75; PULSE 105; RESP 20; TEMP 97.9; O2SAT 98
[2016-12-09 04:00] VITALS: BP 108/72; PULSE 99; RESP 20; TEMP 98.4; O2SAT 100
[2016-12-09] MEDS: CHLORHEXIDINE GLUCONATE 2 % 1 PACK (2 CLOTHS) TOP SCH (04:00)
[2016-12-09] MEDS: ACETAMINOPHEN/HYDROcodone 325 MG/5 MG TAB PO PRN ×5 (04:01→21:45)
[2016-12-09] MEDS: metroNIDAZOLE 500 MG INJ 100 ML IV SCH ×4 (04:01→22:01)
[2016-12-09] MEDS: SODIUM CHLOR 0.9% 1000 ML INJ 1,000 ML IV SCH ×4 (04:02→20:21)
[2016-12-09] MEDS: INSULIN NovoLIN REGULAR SUPPLEMENTAL SCALE SQ SCH ×3 (06:00→17:21)
[2016-12-09 07:58] VITALS: BP 118/82; PULSE 108; RESP 20; TEMP 99.8; O2SAT 99
[2016-12-09] MEDS: LACTOBACILLUS ACIDOPHILUS TAB PO SCH ×2 (08:24→21:45)
[2016-12-09] MEDS: FLUCONAZOLE 200 MG TAB PO SCH (08:24)
[2016-12-09] MEDS: PANTOPRAZOLE SODIUM 40 MG VIAL IV SCH (08:24)
[2016-12-09] MEDS: SODIUM CHLORIDE 0.9% FLUSH 5 ML FLUSH IV FLUSH SCH ×2 (08:32→21:00)
[2016-12-09] MEDS ORDERED: NYSTATIN 100,000 U/GM PWD 15 GM BTL TOPICAL SCH (09:00)
[2016-12-09] MEDS ORDERED: ZINC OXIDE 20% OINT 30 GM TUBE TOPICAL ONE (11:15)
[2016-12-09] MEDS: NYSTATIN 100,000 U/GM PWD 15 GM BTL TOPICAL SCH ×2 (11:15→21:00)
[2016-12-09] MEDS ORDERED: VITAMINS A & D OINT 60 GM TUBE TOP PRN (11:15)
[2016-12-09] MEDS ORDERED: ZINC OXIDE 20% OINT 30 GM TUBE TOPICAL PRN (11:15)
[2016-12-09 12:00] VITALS: BP 115/74; PULSE 95; RESP 20; TEMP 98.7; O2SAT 98
--- NOTE | 2016-12-09 13:11 | HHI.PR ---
Subjective Remarks Says she still has diarrhea 2-3 times per day and he has a rash because of diarrhea. No fever or chills. Feels weak. Has appetite and he is eating better. No n/v. Objective Vitals Vital Signs Date Time Temp Pulse Resp B/P Pulse Ox O2 Delivery O2 Flow Rate FiO2 12/09/16 12:00 98.7 95 20 115/74 98 12/09/16 07:58 99.8 108 20 118/82 99 12/09/16 04:00 98.4 99 20 108/72 100 12/09/16 00:00 97.9 105 20 117/75 98 12/08/16 20:00 98.1 112 20 105/70 100 12/08/16 15:38 98.9 112 20 119/78 100 I/O 12/08/16 12/08/16 12/08/16 12/09/16 12/09/16 12/09/16 07:00 15:00 23:00 07:00 15:00 23:00 Intake Total 1372 ml 1141 ml 1118 ml Output Total 600 ml 300 ml 700 ml Balance 772 ml 841 ml 418 ml Intake Oral 420 ml 240 ml 480 ml IV Total 952 ml 901 ml 638 ml Output Urine Total 600 ml 300 ml 700 ml # Voids 1 # Bowel Movements 1 1 2 3 Result Diagram: 12/08/16 0754 12/08/16 0754 Imaging Last Impressions Chest X-Ray 12/06/16 0000 Signed Impressions: Service Date/Time: Tuesday, December 06, 2016 11:38 - CONCLUSION: Increasing parenchymal opacity right base. Ganesh Jaquez MD FACR Head CT 12/02/16 0000 Signed Impressions: Service Date/Time: Friday, December 02, 2016 14:39 - CONCLUSION: No acute disease. Kan Altamirano MD Abdomen/Pelvis CT 11/28/16 0054 Signed Impressions: Service Date/Time: Monday, November 28, 2016 01:47 - CONCLUSION: Severe constipation. No acute CT findings. Kan Lyons MD Objective Remarks GENERAL: Critically ill, cachectic middle-aged male, lying in bed. Pale. HEENT: Sunken bitemporal bones. Atraumatic. Pupils equal, round and reactive. Mucous membranes are dry. NECK: Trachea is midline. There is no JVD. CHEST: Equal chest rise. Clear to auscultation. CARDIOVASCULAR: Regular rhythm. No appreciable murmurs. ABDOMEN: Small healed scar subxiphoid from prior PEG tube placement. Diffuse tenderness to palpation. There is no guarding. No hepatosplenomegaly. MUSCULOSKELETAL: Distal pulses 2+. No pitting Edema. NEUROLOGICAL: Alert, awake, oriented. Follows commands in all 4 extremities. A/P Assessment and Plan Assessment: This is a 41-year-old male with a history of failure to thrive who presents with multiple acute on chronic medical problems including kidney injury , septic shock, diarrhea, possible colitis. He is very critically ill this time , and descending obstruction has to be ruled out. We will admit him to the ICU and monitor him carefully. We will empirically cover him with antibiotics and await culture data. Gi, general surgery and ID following Plan by systems: Neurologic: Metabolic encephalopathy. Resolving neurochecks Avoid long-acting sedating meds - Head CT scan no acute findings Respiratory: Atelectasis Wean oxygen by nasal cannula for goal SPO2 greater than 92% Incentive spirometer to bedside Cardiovascular: Sinus tachycardia Septic shock-resolved Status post 4 L normal saline. MIVF LR @ 200cc/hr-reduce to 100 ml per hour --critical care bedside ultrasound 11/28: poor acoustic windows. grossly preserved biventricular function with moderately collapsable IVC with quiet respiration. --trend lactate back to normal --was on norepinephrine while in ICU Renal: Acute Kidney Injury --Mancia, q1h uop, strict i/o's --may be multifactorial, including pre-renal secondary to shock --Strict I/Os FEN/GI: Diarrhea Lactic Acidosis Severe constipation on CT with abdominal pain and lactic acidosis, R/o obstruction, mass Acute protein calorie malnutrition- severe bmi 16, sunken bitemporal muscle. Improving. Change diet to regular and bring 2 trays patient says he is hungry. Monitor BS and might need more insulin coverage. Hypomagnesemia Acute intravascular volume depletion Severe Dehydration Hyponatremia --S/P EGD colonoscopy 11/29. GI and general surgery following --ICU electrolyte protocol. daily BMP --likely hypovolemic hyponatremia secondary to severe diarrhea --S/p colonoscopy 12/04/16 report pending --Replace electrolytes Heme/ID: Septic Shock resolved Anemia, likely secondary to chronic disease --f/u blood, sputum, urine cultures --continue Cefepime 1gm iv q8h, continue Flagyl 500mg iv q6h --Colitis is the most likely source at this point --1 unit prbc now given hemodynamic instability --recheck hgb stable --daily CBC Endocrine: Hyperglycemia Hypothermia -- SSI, medium scale, q6h --random cortisol 47, unlikely to be adrenal insufficiency --aggressive warming with BairHugger-now off Prophylaxis: GI Prophylaxis Protonix 40 mg IV every 24 hours DVT Prophylaxis -- SCDs SQH 5000 [id number] due to thrombocytopenia Lines: Gavino PT consult recommends rehab Dispo: DC when improved and cleared by consultants Mary Chiang MD Dec 09, 2016 13:11
[2016-12-09] MEDS ORDERED: CALCIUM CARBONATE 500 MG CHEWABLE TAB CHEW PRN (13:15)
[2016-12-09] MEDS ORDERED: MAGNESIUM SULFATE 4 GM PREMIX 100 ML IV ONE (15:00)
[2016-12-09] MEDS ORDERED: CALCIUM GLUCONATE INJ 1 GM in SODIUM CHLORIDE 0.9% INJ 100 ML IV ONE (15:00)
[2016-12-09 16:00] VITALS: BP 107/72; PULSE 85; RESP 20; TEMP 98.9; O2SAT 98
[2016-12-09] MEDS: MAGNESIUM OXIDE 400 MG TAB PO SCH ×2 (16:08→21:46)
[2016-12-09] MEDS: MAGNESIUM SULFATE 1 GM PREMIX 100 ML IV SCH ×4 (17:21→22:01)
[2016-12-09 20:00] VITALS: BP 106/69; PULSE 107; RESP 18; TEMP 98.4; O2SAT 100
[2016-12-09] MEDS: MESALAMINE 1000 MG SUPP RECTAL SCH (21:00)
[2016-12-10] VITALS: BP 110/68; PULSE 93; RESP 18; TEMP 98.2; O2SAT 100
[2016-12-10] MEDS: ACETAMINOPHEN/HYDROcodone 325 MG/5 MG TAB PO PRN ×6 (01:39→23:42)
[2016-12-10] MEDS: SODIUM CHLOR 0.9% 1000 ML INJ 1,000 ML IV SCH ×4 (03:01→23:40)
[2016-12-10] MEDS: metroNIDAZOLE 500 MG INJ 100 ML IV SCH ×4 (03:39→22:00)
[2016-12-10] MEDS: CHLORHEXIDINE GLUCONATE 2 % 1 PACK (2 CLOTHS) TOP SCH (03:39)
[2016-12-10 04:00] VITALS: BP 103/66; PULSE 100; RESP 18; TEMP 97.1; O2SAT 97
[2016-12-10] MEDS: INSULIN NovoLIN REGULAR SUPPLEMENTAL SCALE SQ SCH ×5 (05:35→23:54)
[2016-12-10 06:25] LABS: ANION GAP 6 MEQ/L (5-15); BICARBONATE 19.7 MEQ/L (21.0-32.0); BLOOD UREA NITROGEN 3 MG/DL (7-18); CHLORIDE 112 MEQ/L (98-107); GLOMERULAR FILTRATION RATE 150 ML/MIN (>89); MAGNESIUM 1.7 MG/DL (1.5-2.5); SODIUM (NA) 138 MEQ/L (136-145)
[2016-12-10 06:37] LABS: CALCIUM-PROTEIN CORRECTED 8.1 MG/DL (8.5-10.1)
[2016-12-10 06:39] LABS: AUTOMATED NEUTROPHIL # 2.7 TH/MM3 (1.8-7.7); BASOPHIL # 0.1 TH/MM3 (0-0.2); BASOPHIL % 2.1 % (0.0-2.0); EOSINOPHIL # 0.2 TH/MM3 (0-0.4); EOSINOPHIL % 3.4 % (0.0-4.0); HEMATOCRIT 24.3 % (39.0-51.0); HEMO FLAGS DIFF FINAL; LYMPH % 29.7 % (9.0-44.0); LYMPHOCYTE # 1.4 TH/MM3 (1.0-4.8); MEAN CELL VOLUME 82.5 FL (80.0-100.0); MEAN CORPUSCULAR HEMOGLOBIN 28.4 PG (27.0-34.0); MEAN CORPUSCULAR HGB CONC 34.5 % (32.0-36.0); MONO % 9.3 % (0.0-8.0); NEUT % 55.5 % (16.0-70.0); PLATELET COUNT 284 TH/MM3 (150-450); RED BLOOD COUNT 2.95 MIL/MM3 (4.50-5.90); RED CELL DISTRIBUTION WIDTH 17.9 % (11.6-17.2); WHITE BLOOD COUNT 4.8 TH/MM3 (4.0-11.0)
[2016-12-10 08:14] VITALS: BP 111/72; PULSE 95; RESP 18; TEMP 97.3; O2SAT 99
[2016-12-10] MEDS: MAGNESIUM OXIDE 400 MG TAB PO SCH ×2 (08:40→20:22)
[2016-12-10] MEDS: LACTOBACILLUS ACIDOPHILUS TAB PO SCH ×2 (08:40→20:22)
[2016-12-10] MEDS: PANTOPRAZOLE SODIUM 40 MG VIAL IV SCH (08:40)
[2016-12-10] MEDS: FLUCONAZOLE 200 MG TAB PO SCH (08:40)
[2016-12-10] MEDS: SODIUM CHLORIDE 0.9% FLUSH 5 ML FLUSH IV FLUSH SCH ×2 (08:41→21:00)
[2016-12-10] MEDS: NYSTATIN 100,000 U/GM PWD 15 GM BTL TOPICAL SCH ×2 (08:54→21:00)
[2016-12-10 12:04] VITALS: BP 115/73; PULSE 95; RESP 18; TEMP 97.8; O2SAT 99
--- NOTE | 2016-12-10 12:16 | HHI.PR ---
Subjective Remarks Says he feels cold. No fevers. Patient has perirectal/pelvic rash 2/2 profuse diarrhea. Says she had multiple episodes of diarrhea overnight. No diarrhea so far since morning. No fever or chills. Objective Vitals Vital Signs Date Time Temp Pulse Resp B/P Pulse Ox O2 Delivery O2 Flow Rate FiO2 12/10/16 12:04 97.8 95 18 115/73 99 12/10/16 08:14 97.3 95 18 111/72 99 12/10/16 04:00 97.1 100 18 103/66 97 12/10/16 00:00 98.2 93 18 110/68 100 12/09/16 20:00 98.4 107 18 106/69 100 12/09/16 16:00 98.9 85 20 107/72 98 I/O 12/09/16 12/09/16 12/09/16 12/10/16 12/10/16 12/10/16 07:00 15:00 23:00 07:00 15:00 23:00 Intake Total 1118 ml 960 ml 650 ml 480 ml Output Total 700 ml 700 ml 600 ml 240 ml Balance 418 ml 260 ml 650 ml -120 ml -240 ml Intake Oral 480 ml 960 ml 650 ml 480 ml IV Total 638 ml Output Urine Total 700 ml 700 ml 600 ml 240 ml # Voids 1 2 2 # Bowel Movements 3 2 4 2 Result Diagram: 12/10/16 0502 12/10/16 0502 Imaging Last Impressions Chest X-Ray 12/06/16 0000 Signed Impressions: Service Date/Time: Tuesday, December 06, 2016 11:38 - CONCLUSION: Increasing parenchymal opacity right base. Ganesh Jaquez MD FACR Head CT 12/02/16 0000 Signed Impressions: Service Date/Time: Friday, December 02, 2016 14:39 - CONCLUSION: No acute disease. Kan Altamirano MD Abdomen/Pelvis CT 11/28/16 0054 Signed Impressions: Service Date/Time: Monday, November 28, 2016 01:47 - CONCLUSION: Severe constipation. No acute CT findings. Kan Lyons MD Objective Remarks GENERAL: Critically ill, cachectic middle-aged male, lying in bed. Pale. HEENT: Sunken bitemporal bones. Atraumatic. Pupils equal, round and reactive. Mucous membranes are dry. NECK: Trachea is midline. There is no JVD. CHEST: Equal chest rise. Clear to auscultation. CARDIOVASCULAR: Regular rhythm. No appreciable murmurs. ABDOMEN: Small healed scar subxiphoid from prior PEG tube placement. Diffuse tenderness to palpation. There is no guarding. No hepatosplenomegaly. MUSCULOSKELETAL: Distal pulses 2+. No pitting Edema. NEUROLOGICAL: Alert, awake, oriented. Follows commands in all 4 extremities. A/P Assessment and Plan Assessment: This is a 41-year-old male with a history of failure to thrive who presents with multiple acute on chronic medical problems including kidney injury , septic shock, diarrhea, possible colitis. He is very critically ill this time , and descending obstruction has to be ruled out. We will admit him to the ICU and monitor him carefully. We will empirically cover him with antibiotics and await culture data. Gi, general surgery and ID following Plan by systems: Neurologic: Metabolic encephalopathy. Resolving neurochecks Avoid long-acting sedating meds - Head CT scan no acute findings Respiratory: Atelectasis Wean oxygen by nasal cannula for goal SPO2 greater than 92% Incentive spirometer to bedside Cardiovascular: Sinus tachycardia Septic shock-resolved Status post 4 L normal saline. MIVF LR @ 200cc/hr-reduce to 100 ml per hour --critical care bedside ultrasound 11/28: poor acoustic windows. grossly preserved biventricular function with moderately collapsable IVC with quiet respiration. --trend lactate back to normal --was on norepinephrine while in ICU Renal: Acute Kidney Injury --Mancia, q1h uop, strict i/o's --may be multifactorial, including pre-renal secondary to shock --Strict I/Os FEN/GI: Diarrhea Lactic Acidosis Severe constipation on CT with abdominal pain and lactic acidosis, R/o obstruction, mass Acute protein calorie malnutrition- severe bmi 16, sunken bitemporal muscle. Improving. Change diet to regular and bring 2 trays patient says he is hungry. Monitor BS and might need more insulin coverage. Hypomagnesemia Acute intravascular volume depletion Severe Dehydration Hyponatremia Fecal impaction. Resolved --S/P EGD colonoscopy 11/29. GI and general surgery following --ICU electrolyte protocol. daily BMP --likely hypovolemic hyponatremia secondary to severe diarrhea --S/p colonoscopy 1/23/17 --Replace electrolytes --DC laxatives , continue canasa per GI specialist Heme/ID: Septic Shock resolved Anemia, likely secondary to chronic disease --f/u blood, sputum, urine cultures --continue Cefepime 1gm iv q8h, continue Flagyl 500mg iv q6h --Colitis is the most likely source at this point --1 unit prbc now given hemodynamic instability --recheck hgb stable --daily CBC Endocrine: Hyperglycemia Hypothermia -- SSI, medium scale, q6h --random cortisol 47, unlikely to be adrenal insufficiency --aggressive warming with BairHugger-now off Prophylaxis: GI Prophylaxis Protonix 40 mg IV every 24 hours DVT Prophylaxis -- SCDs SQH 5000 [id number] due to thrombocytopenia Lines: Gavino PT consult recommends rehab Dispo: DC when improved and cleared by consultants Mary Chiang MD Dec 10, 2016 12:16
--- NOTE | 2016-12-10 13:33 | HHI.GIFU ---
GI Follow-up Note Consult Follow-up Subjective: Patient laying in bed comfortably, he is hungry, states cannot get enough of food.Had multiple loose bowel movements over night-cannot confirm with nursing -we will monitor closely Had ulceration, severe inflammation in rectum and sigmoid, most likely due to fecal impaction-Canasa suppositories Objective: PHYSICAL EXAMINATION: Vitals signs stable No fever Vital Signs Date Time Temp Pulse Resp B/P Pulse Ox O2 Delivery O2 Flow Rate FiO2 12/10/16 12:04 97.8 95 18 115/73 99 12/10/16 08:14 97.3 95 18 111/72 99 HEENT: Pupils round and reactive to light; normocephalic; atraumatic; no jaundice. Throat is clear. NECK: Neck is supple, no JVD, no lymphadenopathy. CHEST: Chest is clear to auscultation and percussion. CARDIAC: Regular rate and rhythm with no murmur gallop or rubs. ABDOMEN: Soft, nondistended, nontender; no hepatosplenomegaly; bowel sounds are present in all four quadrants. EXTREMITIES: No clubbing, cyanosis, or edema. SKIN: Normal; no rash; no jaundice. PUMP OPERATOR BYPRODUCTS: No focal deficits; alert and oriented times three. Available Data (labs, X- Rays, Procedues) : Laboratory Tests Test 12/10/16 05:02 White Blood Count 4.8 TH/MM3 Red Blood Count 2.95 MIL/MM3 Hemoglobin 8.4 GM/DL Hematocrit 24.3 % Mean Corpuscular Volume 82.5 FL Mean Corpuscular Hemoglobin 28.4 PG Mean Corpuscular Hemoglobin 34.5 % Concent Red Cell Distribution Width 17.9 % Platelet Count 284 TH/MM3 Mean Platelet Volume 7.9 FL Neutrophils (%) (Auto) 55.5 % Lymphocytes (%) (Auto) 29.7 % Monocytes (%) (Auto) 9.3 % Eosinophils (%) (Auto) 3.4 % Basophils (%) (Auto) 2.1 % Neutrophils # (Auto) 2.7 TH/MM3 Lymphocytes # (Auto) 1.4 TH/MM3 Monocytes # (Auto) 0.4 TH/MM3 Eosinophils # (Auto) 0.2 TH/MM3 Basophils # (Auto) 0.1 TH/MM3 CBC Comment DIFF FINAL Differential Comment Sodium Level 138 MEQ/L Potassium Level 4.0 MEQ/L Chloride Level 112 MEQ/L Carbon Dioxide Level 19.7 MEQ/L Anion Gap 6 MEQ/L Blood Urea Nitrogen 3 MG/DL Creatinine 0.59 MG/DL Estimat Glomerular Filtration 150 ML/MIN Rate Random Glucose 134 MG/DL Calcium Level 6.9 MG/DL Protein Corrected Calcium 8.1 MG/DL Phosphorus Level LESS THAN 0.1 MG/DL Magnesium Level 1.7 MG/DL Total Protein 4.9 GM/DL ASSESSMENT/PLAN: fecal impaction resolved -possible initially overflow diarrhea ulcers and inflammation in rectosigmoid, most likely secondary fecal impaction malnutrition uncontrolled diabetes Recommendations trial of Rifaximin 550 mg po bid Creon with meals and snacks close monitoring of stools may need repeat flexisigmoidoscopy next week Canasa supp It was a pleasure seeing Dalton Arce. Thank you for this consult. Entered by: Allison Raphael MD Dec 10, 2016 13:33
[2016-12-10 16:45] VITALS: BP 99/67; PULSE 100; RESP 20; TEMP 97.8; O2SAT 98
[2016-12-10] MEDS: LIPASE/PROTEASE/AMYLASE (24,000/76,000/120,000) CAP PO SCH (18:45)
[2016-12-10 20:00] VITALS: BP 120/76; PULSE 101; RESP 18; TEMP 98; O2SAT 100
[2016-12-10] MEDS: RIFAXIMIN 550 MG TAB PO SCH (20:21)
[2016-12-10] MEDS: MESALAMINE 1000 MG SUPP RECTAL SCH (20:22)
[2016-12-10] MEDS: NYSTATIN 100,000 U/GM PWD 15 GM BTL TOPICAL PRN (23:43)
[2016-12-11] VITALS (8 sets, daily range): BP systolic 110–140; BP diastolic 69–89; PULSE 91–114; RESP 18–19; TEMP 96.8–98.1; O2SAT 99–100
[2016-12-11] MEDS: metroNIDAZOLE 500 MG INJ 100 ML IV SCH ×4 (03:06→20:29)
[2016-12-11] MEDS: CHLORHEXIDINE GLUCONATE 2 % 1 PACK (2 CLOTHS) TOP SCH (04:00)
[2016-12-11] MEDS: INSULIN NovoLIN REGULAR SUPPLEMENTAL SCALE SQ SCH ×4 (05:04→23:42)
[2016-12-11] MEDS: ACETAMINOPHEN/HYDROcodone 325 MG/5 MG TAB PO PRN ×5 (05:05→22:11)
[2016-12-11] MEDS: SODIUM CHLOR 0.9% 1000 ML INJ 1,000 ML IV SCH ×3 (05:41→19:01)
[2016-12-11] MEDS: LACTATED RINGER'S 1000 ML INJ 1,000 ML IV SCH (09:03)
[2016-12-11] MEDS: LIPASE/PROTEASE/AMYLASE (24,000/76,000/120,000) CAP PO SCH ×3 (09:04→16:36)
[2016-12-11] MEDS: FLUCONAZOLE 200 MG TAB PO SCH (09:05)
[2016-12-11] MEDS: LACTOBACILLUS ACIDOPHILUS TAB PO SCH ×2 (09:05→20:28)
[2016-12-11] MEDS: RIFAXIMIN 550 MG TAB PO SCH ×2 (09:05→20:28)
[2016-12-11] MEDS: MAGNESIUM OXIDE 400 MG TAB PO SCH ×2 (09:05→20:28)
[2016-12-11] MEDS: SODIUM CHLORIDE 0.9% FLUSH 5 ML FLUSH IV FLUSH SCH ×2 (09:06→20:29)
[2016-12-11] MEDS: PANTOPRAZOLE SODIUM 40 MG VIAL IV SCH (09:06)
[2016-12-11] MEDS: NYSTATIN 100,000 U/GM PWD 15 GM BTL TOPICAL SCH ×2 (09:07→20:29)
--- NOTE | 2016-12-11 09:24 | HHI.GIFU ---
Subjective Remarks Pt resting in bed. Appetite good. No n/v. Pt does continue to have persistent diarrhea- no improvement. No blood in stool. (Jolly Restrepo) Objective Vitals I&O Vital Signs Date Time Temp Pulse Resp B/P Pulse Ox O2 Delivery O2 Flow Rate FiO2 12/11/16 08:30 97.2 99 18 140/89 99 12/11/16 04:00 98.1 91 18 110/69 99 12/11/16 00:00 97.2 99 18 131/83 100 12/10/16 20:00 98.0 101 18 120/76 100 12/10/16 16:45 97.8 100 20 99/67 98 12/10/16 12:04 97.8 95 18 115/73 99 I/O 12/10/16 12/10/16 12/10/16 12/11/16 12/11/16 12/11/16 07:00 15:00 23:00 07:00 15:00 23:00 Intake Total 480 ml 840 ml 450 ml Output Total 600 ml 240 ml 500 ml 4 ml Balance -120 ml -240 ml 340 ml 446 ml Intake Oral 480 ml 840 ml 450 ml Output Urine Total 600 ml 240 ml 500 ml 4 ml # Voids 2 # Bowel Movements 2 2 5 Imaging Last Impressions Chest X-Ray 12/06/16 0000 Signed Impressions: Service Date/Time: Tuesday, December 06, 2016 11:38 - CONCLUSION: Increasing parenchymal opacity right base. Ganesh Jaquez MD FACR Head CT 12/02/16 0000 Signed Impressions: Service Date/Time: Friday, December 02, 2016 14:39 - CONCLUSION: No acute disease. Kan Altamirano MD Abdomen/Pelvis CT 11/28/16 0054 Signed Impressions: Service Date/Time: Monday, November 28, 2016 01:47 - CONCLUSION: Severe constipation. No acute CT findings. Kan Lyons MD Physical Exam HEENT: Cachexia, normocephalic; atraumatic; no jaundice. CHEST: CTA CARDIAC: RRR ABDOMEN: Soft, nondistended, nontender; no hepatosplenomegaly; bowel sounds are present in all four quadrants. EXTREMITIES: No clubbing, cyanosis, or edema. SKIN: Normal; no rash; no jaundice. 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 Abdomen/Pelvis CT (11/28/16)----> Severe constipation. No acute CT findings. S/P EGD/colonoscopy on (11/29/16) showed esophagitis, poor colonic prep, no signs of bleeding. Pathology acutely inflamed and markedly reactive ulcerated squamous mucosa with a small number budding yeast in the superficial squamous layers consistent with Claudia esophagitis. S/P Colonoscopy with 2 day prep (12/04/16)---> ulceration, colitis in descending sigmiod, rectum, s/p biopsies , retroflexed views medium internal hemorrhoids, internal hemorrhoids, external hemorrhoids. Pathology colonic mucosal biopsy without significant histopathologic abnormality malady negative for colitis and ulceration in the descending colon ulcer biopsy, sigmoid colon with mild acute nonspecific colitis, rectal biopsy with acute colitis exhibiting ischemic features S/P GS evaluation. Canasa Suppository. Not having pain, but having persistent diarrhea with 6-8 stools per day. Xifaxan, Creon, Canasa, Lactinex. - Claudia esophagitis. PPI. Diflucan. - Constipation with ? overflow diarrhea. s/p SSE X 3, Dulcolax supp, senna. No BM today. - Anemia (normocytic, normochromic )- likely multifactorial. 8.424.3 - Failure to thrive/ wt loss- unknown etiology, patient states he has been eating, denies nausea or vomiting - Sepsis. IMPROVED, ID following. - Hyponatremia- resolved - Hypokalemia per attending - AKF Resolved - Fibromyalgia/ HTN, CAD, DM per attending Plan: - JHONY - Canasa Suppositories - PPI - Diflucan 200mg mg po daily x 14 days - Xifaxan - Creon - Lactinex - Cont. bowel regimen - Monitor HH - Transfuse as needed - Consider repeat flexible sigmoidoscopy - Patient seen and examined by Dr. Wyatt and myself and this note is written on his behalf. (Jolly Restrepo) Physician Comments Patient seen and examined Agree with above Continue with current supportive care Monitor labs (Ambrose Wyatt MD) Jolly Restrepo Dec 11, 2016 09:24 Ambrose Wyatt MD Dec 11, 2016 23:11
[2016-12-11] MEDS: RESP: ALBUTEROL 2.5 MG/IPRATROPIUM 0.5 MG NEB (PRN) INH ×2 (09:56→16:30)
--- NOTE | 2016-12-11 13:07 | HHI.PR ---
Subjective Remarks He is cold. No tremors. Says painis fairly controlled by meds. He has perineal rash 2/2 diarrhea. Says he has appetite and is eating well. He is alert and oriented. Objective Vitals Vital Signs Date Time Temp Pulse Resp B/P Pulse Ox O2 Delivery O2 Flow Rate FiO2 12/11/16 12:33 96.8 111 18 125/81 100 12/11/16 09:59 99 21 12/11/16 08:30 97.2 99 18 140/89 99 12/11/16 04:00 98.1 91 18 110/69 99 12/11/16 00:00 97.2 99 18 131/83 100 12/10/16 20:00 98.0 101 18 120/76 100 12/10/16 16:45 97.8 100 20 99/67 98 I/O 12/10/16 12/10/16 12/10/16 12/11/16 12/11/16 12/11/16 07:00 15:00 23:00 07:00 15:00 23:00 Intake Total 480 ml 840 ml 450 ml Output Total 600 ml 240 ml 500 ml 4 ml Balance -120 ml -240 ml 340 ml 446 ml Intake Oral 480 ml 840 ml 450 ml Output Urine Total 600 ml 240 ml 500 ml 4 ml # Voids 2 # Bowel Movements 2 2 5 Result Diagram: 12/10/16 0502 12/10/16 0502 Imaging Last Impressions Chest X-Ray 12/06/16 0000 Signed Impressions: Service Date/Time: Tuesday, December 06, 2016 11:38 - CONCLUSION: Increasing parenchymal opacity right base. Ganesh Jaquez MD FACR Head CT 12/02/16 0000 Signed Impressions: Service Date/Time: Friday, December 02, 2016 14:39 - CONCLUSION: No acute disease. Kan Altamirano MD Abdomen/Pelvis CT 11/28/16 0054 Signed Impressions: Service Date/Time: Monday, November 28, 2016 01:47 - CONCLUSION: Severe constipation. No acute CT findings. Kan Lyons MD Objective Remarks GENERAL: Critically ill, cachectic middle-aged male, lying in bed. Pale. HEENT: Sunken bitemporal bones. Atraumatic. Pupils equal, round and reactive. Mucous membranes are dry. NECK: Trachea is midline. There is no JVD. CHEST: Equal chest rise. Clear to auscultation. CARDIOVASCULAR: Regular rhythm. No appreciable murmurs. ABDOMEN: Small healed scar subxiphoid from prior PEG tube placement. Diffuse tenderness to palpation. There is no guarding. No hepatosplenomegaly. MUSCULOSKELETAL: Distal pulses 2+. No pitting Edema. NEUROLOGICAL: Alert, awake, oriented. Follows commands in all 4 extremities. A/P Assessment and Plan Assessment: This is a 41-year-old male with a history of failure to thrive who presents with multiple acute on chronic medical problems including kidney injury , septic shock, diarrhea, possible colitis. He is very critically ill this time , and descending obstruction has to be ruled out. We will admit him to the ICU and monitor him carefully. We will empirically cover him with antibiotics and await culture data. Gi, general surgery and ID following Plan by systems: Neurologic: Metabolic encephalopathy. Resolving neurochecks Avoid long-acting sedating meds - Head CT scan no acute findings Respiratory: Atelectasis Wean oxygen by nasal cannula for goal SPO2 greater than 92% Incentive spirometer to bedside Cardiovascular: Sinus tachycardia Septic shock-resolved Status post 4 L normal saline. MIVF LR @ 200cc/hr-reduce to 100 ml per hour --critical care bedside ultrasound 11/28: poor acoustic windows. grossly preserved biventricular function with moderately collapsable IVC with quiet respiration. --trend lactate back to normal --was on norepinephrine while in ICU Renal: Acute Kidney Injury --Mancia, q1h uop, strict i/o's --may be multifactorial, including pre-renal secondary to shock --Strict I/Os FEN/GI: Diarrhea Lactic Acidosis Severe constipation on CT with abdominal pain and lactic acidosis, R/o obstruction, mass Acute protein calorie malnutrition- severe bmi 16, sunken bitemporal muscle. Improving. Change diet to regular and bring 2 trays patient says he is hungry. Monitor BS and might need more insulin coverage. Hypomagnesemia Acute intravascular volume depletion Severe Dehydration Hyponatremia Hypocalcemia requiring multiple IV Ca gluconate Hypomagnesemia. Hypophosphatemia. Refeeding syndrom. Requiring IV and PO supplement. Monior and continue to replenish. Fecal impaction. Resolved --S/P EGD colonoscopy 11/29. GI and general surgery following --ICU electrolyte protocol. daily BMP --likely hypovolemic hyponatremia secondary to severe diarrhea --S/p colonoscopy 12/04/16 --Replace electrolytes, --DC laxatives , continue canasa per GI specialist Heme/ID: Septic Shock resolved Anemia, likely secondary to chronic disease --f/u blood, sputum, urine cultures --continue Cefepime 1gm iv q8h, continue Flagyl 500mg iv q6h --Colitis is the most likely source at this point --1 unit prbc now given hemodynamic instability --recheck hgb stable --daily CBC Endocrine: Hyperglycemia Hypothermia -- SSI, medium scale, q6h --random cortisol 47, unlikely to be adrenal insufficiency --aggressive warming with BairHugger-now off Prophylaxis: GI Prophylaxis Protonix 40 mg IV every 24 hours DVT Prophylaxis -- SCDs SQH 5000 [id number] due to thrombocytopenia Lines: G[facility] PT consult recommends rehab Dispo: DC when improved and cleared by consultants Mary Chiang MD Dec 11, 2016 13:06
[2016-12-11] MEDS: POTASSIUM PHOSPHATE MONOBASIC 500 MG TAB PO SCH ×2 (13:58→20:29)
[2016-12-11] MEDS ORDERED: POTASSIUM PHOSPHATE INJ 30 MMOL in SODIUM CHLOR 0.9% 250 ML INJ 250 ML IV ONE (14:00)
[2016-12-11] MEDS: MESALAMINE 1000 MG SUPP RECTAL SCH (20:29)
[2016-12-12] MEDS: SODIUM CHLOR 0.9% 1000 ML INJ 1,000 ML IV SCH ×4 (01:41→21:28)
[2016-12-12] MEDS: LACTATED RINGER'S 1000 ML INJ 1,000 ML IV SCH ×2 (01:54→18:34)
[2016-12-12] MEDS: CHLORHEXIDINE GLUCONATE 2 % 1 PACK (2 CLOTHS) TOP SCH ×2 (04:00→21:27)
[2016-12-12 04:45] VITALS: BP 116/70; PULSE 99; RESP 17; TEMP 97.8; O2SAT 100
[2016-12-12] MEDS: ACETAMINOPHEN/HYDROcodone 325 MG/5 MG TAB PO PRN ×4 (05:12→21:21)
[2016-12-12] MEDS: metroNIDAZOLE 500 MG INJ 100 ML IV SCH ×4 (05:12→21:24)
[2016-12-12] MEDS: INSULIN NovoLIN REGULAR SUPPLEMENTAL SCALE SQ SCH ×3 (05:15→18:00)
[2016-12-12 08:27] VITALS: BP 121/75; PULSE 103; RESP 18; TEMP 97; O2SAT 98
[2016-12-12] MEDS: NYSTATIN 100,000 U/GM PWD 15 GM BTL TOPICAL SCH ×2 (09:00→21:27)
[2016-12-12] MEDS: LIPASE/PROTEASE/AMYLASE (24,000/76,000/120,000) CAP PO SCH ×3 (09:41→17:57)
[2016-12-12] MEDS: MAGNESIUM OXIDE 400 MG TAB PO SCH ×2 (09:41→21:23)
[2016-12-12] MEDS: FLUCONAZOLE 200 MG TAB PO SCH (09:41)
[2016-12-12] MEDS: POTASSIUM PHOSPHATE MONOBASIC 500 MG TAB PO SCH ×3 (09:41→21:25)
[2016-12-12] MEDS: RIFAXIMIN 550 MG TAB PO SCH ×2 (09:41→21:21)
[2016-12-12] MEDS: LACTOBACILLUS ACIDOPHILUS TAB PO SCH ×2 (09:41→21:22)
[2016-12-12] MEDS: NYSTATIN 100,000 U/GM PWD 15 GM BTL TOPICAL PRN (09:42)
[2016-12-12] MEDS: SODIUM CHLORIDE 0.9% FLUSH 5 ML FLUSH IV FLUSH SCH ×2 (09:43→21:00)
[2016-12-12] MEDS: PANTOPRAZOLE SODIUM 40 MG VIAL IV SCH (09:43)
--- NOTE | 2016-12-12 10:03 | HHI.GIFU ---
Subjective Remarks Resting in bed. Reports that his diarrhea is getting worse. He is having large amounts of liquid stool "overflowing the bedpan" He reports that he has had more than 10 bowel movements in the past 24 hours. (RestrepoJolly Jackie KATERINE) Objective Vitals I&O Vital Signs Date Time Temp Pulse Resp B/P Pulse Ox O2 Delivery O2 Flow Rate FiO2 12/12/16 08:27 97.0 103 18 121/75 98 12/12/16 04:45 97.8 99 17 116/70 100 12/11/16 23:45 97.7 100 19 118/80 100 12/11/16 22:00 98.0 114 19 115/79 100 12/11/16 16:15 96.8 108 18 129/87 100 12/11/16 12:33 96.8 111 18 125/81 100 12/11/16 09:59 99 21 I/O 12/11/16 12/11/16 12/11/16 12/12/16 12/12/16 12/12/16 07:00 15:00 23:00 07:00 15:00 23:00 Intake Total 450 ml 800 ml 1000 ml Output Total 4 ml 700 ml 1600 ml Balance 446 ml 100 ml -600 ml Intake Oral 450 ml 800 ml 1000 ml Output Urine Total 4 ml 700 ml 1600 ml # Bowel Movements 5 3 12 Imaging Last Impressions Chest X-Ray 12/06/16 0000 Signed Impressions: Service Date/Time: Tuesday, December 06, 2016 11:38 - CONCLUSION: Increasing parenchymal opacity right base. Ganesh Jaquez MD FACR Head CT 12/02/16 0000 Signed Impressions: Service Date/Time: Friday, December 02, 2016 14:39 - CONCLUSION: No acute disease. Kan Altamirano MD Abdomen/Pelvis CT 11/28/16 0054 Signed Impressions: Service Date/Time: Monday, November 28, 2016 01:47 - CONCLUSION: Severe constipation. No acute CT findings. Kan Lyons MD Physical Exam HEENT: Cachexia, normocephalic; atraumatic; no jaundice. CHEST: CTA CARDIAC: RRR ABDOMEN: Soft, nondistended, nontender; no hepatosplenomegaly; bowel sounds are present in all four quadrants. EXTREMITIES: No clubbing, cyanosis, or edema. SKIN: Normal; no rash; no jaundice. 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 Abdomen/Pelvis CT (11/28/16)----> Severe constipation. No acute CT findings. S/P EGD/colonoscopy on (11/29/16) showed esophagitis, poor colonic prep, no signs of bleeding. Pathology acutely inflamed and markedly reactive ulcerated squamous mucosa with a small number budding yeast in the superficial squamous layers consistent with Claudia esophagitis. S/P Colonoscopy with 2 day prep (12/04/16)---> ulceration, colitis in descending sigmiod, rectum, s/p biopsies , retroflexed views medium internal hemorrhoids, internal hemorrhoids, external hemorrhoids. Pathology colonic mucosal biopsy without significant histopathologic abnormality malady negative for colitis and ulceration in the descending colon ulcer biopsy, sigmoid colon with mild acute nonspecific colitis, rectal biopsy with acute colitis exhibiting ischemic features S/P GS evaluation. Canasa Suppository. Pain has subsided, but he is having worsening diarrhea, > 10 episodes over the past 24 hours. Xifaxan, Creon, Canasa, Lactinex. CDiff (-) on 12/08 esd negative. Of note, is on Max Oxide which may be contributing to diarrhea. Plan for flexible sigmoidoscopy in am. - Claudia esophagitis. PPI. Diflucan. - Constipation with ? overflow diarrhea. s/p SSE X 3, Dulcolax supp, senna. Now having significant diarrhea - Anemia (normocytic, normochromic )- likely multifactorial. 8.424.3 - Failure to thrive/ wt loss- unknown etiology, patient states he has been eating, denies nausea or vomiting - Sepsis. IMPROVED, ID following. - Hyponatremia- resolved - Hypokalemia per attending - AKF Resolved - Fibromyalgia/ HTN, CAD, DM per attending Plan: - Plan for flexible sigmoidoscopy in am - Clear liquids - NPO after MN - SSE x 2 in am - Canasa Suppositories - PPI - Diflucan 200mg mg po daily x 14 days - Xifaxan - Creon - Lactinex - Cont. bowel regimen - Monitor HH - Transfuse as needed - Consider imodium if flex sig okay, consider discontinuing Mag ox as soon as able, as this may be contributing to diarrhea - Patient seen and examined by Dr. Wyatt and myself and this note is written on his behalf. (Jolly Restrepo) Physician Comments Patient seen and examined Agree with above Continue with current supportive care Monitor labs We will plan for flexible sigmoidoscopy tomorrow (Ambrose Wyatt MD) Jolly Restrepo Dec 12, 2016 10:03 Ambrose Wyatt MD Dec 12, 2016 23:15
[2016-12-12] MEDS ORDERED: SODIUM CHLORIDE 0.65% NASAL SPRAY 45 ML BTL EACH NARE PRN (10:45)
[2016-12-12 11:33] LABS: AUTOMATED NEUTROPHIL # 1.9 TH/MM3 (1.8-7.7); BASOPHIL # 0.1 TH/MM3 (0-0.2); BASOPHIL % 3.4 % (0.0-2.0); EOSINOPHIL # 0.1 TH/MM3 (0-0.4); EOSINOPHIL % 3.1 % (0.0-4.0); HEMATOCRIT 23.2 % (39.0-51.0); HEMO FLAGS DIFF FINAL; LYMPH % 33.1 % (9.0-44.0); LYMPHOCYTE # 1.3 TH/MM3 (1.0-4.8); MEAN CORPUSCULAR HEMOGLOBIN 28.4 PG (27.0-34.0); MEAN CORPUSCULAR HGB CONC 33.8 % (32.0-36.0); MONO % 10.4 % (0.0-8.0); PLATELET COUNT 289 TH/MM3 (150-450); RED BLOOD COUNT 2.76 MIL/MM3 (4.50-5.90); RED CELL DISTRIBUTION WIDTH 18.9 % (11.6-17.2); WHITE BLOOD COUNT 3.8 TH/MM3 (4.0-11.0)
[2016-12-12 11:54] LABS: POTASSIUM 4.3 MEQ/L (3.5-5.1)
[2016-12-12 12:06] VITALS: BP 121/81; PULSE 103; RESP 18; TEMP 97; O2SAT 99
[2016-12-12 12:12] LABS: CALCIUM-PROTEIN CORRECTED 8.5 MG/DL (8.5-10.1)
--- NOTE | 2016-12-12 13:42 | HHI.PR ---
Subjective Remarks No fever. He complaints of chills and being cold all the time. Eating well. Had diarrhea and says perineal rash is hurting. Objective Vitals Vital Signs Date Time Temp Pulse Resp B/P Pulse Ox O2 Delivery O2 Flow Rate FiO2 12/12/16 12:06 97.0 103 18 121/81 99 12/12/16 08:27 97.0 103 18 121/75 98 12/12/16 04:45 97.8 99 17 116/70 100 12/11/16 23:45 97.7 100 19 118/80 100 12/11/16 22:00 98.0 114 19 115/79 100 12/11/16 16:15 96.8 108 18 129/87 100 I/O 12/11/16 12/11/16 12/11/16 12/12/16 12/12/16 12/12/16 07:00 15:00 23:00 07:00 15:00 23:00 Intake Total 450 ml 800 ml 1000 ml Output Total 4 ml 700 ml 1600 ml Balance 446 ml 100 ml -600 ml Intake Oral 450 ml 800 ml 1000 ml Output Urine Total 4 ml 700 ml 1600 ml # Bowel Movements 5 3 12 Result Diagram: 12/12/16 1023 12/12/16 1023 Imaging Last Impressions Chest X-Ray 12/06/16 0000 Signed Impressions: Service Date/Time: Tuesday, December 06, 2016 11:38 - CONCLUSION: Increasing parenchymal opacity right base. Ganesh Jaquez MD FACR Head CT 12/02/16 0000 Signed Impressions: Service Date/Time: Friday, December 02, 2016 14:39 - CONCLUSION: No acute disease. Kan Altamirano MD Abdomen/Pelvis CT 11/28/16 0054 Signed Impressions: Service Date/Time: Monday, November 28, 2016 01:47 - CONCLUSION: Severe constipation. No acute CT findings. Kan Lyons MD Objective Remarks GENERAL: Critically ill, cachectic middle-aged male, lying in bed. Pale. HEENT: Sunken bitemporal bones. Atraumatic. Pupils equal, round and reactive. Mucous membranes are dry. NECK: Trachea is midline. There is no JVD. CHEST: Equal chest rise. Clear to auscultation. CARDIOVASCULAR: Regular rhythm. No appreciable murmurs. ABDOMEN: Small healed scar subxiphoid from prior PEG tube placement. Diffuse tenderness to palpation. There is no guarding. No hepatosplenomegaly. MUSCULOSKELETAL: Distal pulses 2+. No pitting Edema. NEUROLOGICAL: Alert, awake, oriented. Follows commands in all 4 extremities. A/P Assessment and Plan Assessment: This is a 41-year-old male with a history of failure to thrive who presents with multiple acute on chronic medical problems including kidney injury , septic shock, diarrhea, possible colitis. He is very critically ill this time , and descending obstruction has to be ruled out. We will admit him to the ICU and monitor him carefully. We will empirically cover him with antibiotics and await culture data. Gi, general surgery and ID following Plan by systems: Neurologic: Metabolic encephalopathy. Resolving neurochecks Avoid long-acting sedating meds - Head CT scan no acute findings Respiratory: Atelectasis Wean oxygen by nasal cannula for goal SPO2 greater than 92% Incentive spirometer to bedside Cardiovascular: Sinus tachycardia Septic shock-resolved Status post 4 L normal saline. MIVF LR @ 200cc/hr-reduce to 100 ml per hour --critical care bedside ultrasound 11/28: poor acoustic windows. grossly preserved biventricular function with moderately collapsable IVC with quiet respiration. --trend lactate back to normal --was on norepinephrine while in ICU Renal: Acute Kidney Injury --Mancia, q1h uop, strict i/o's --may be multifactorial, including pre-renal secondary to shock --Strict I/Os FEN/GI: Diarrhea Lactic Acidosis Severe constipation on CT with abdominal pain and lactic acidosis, R/o obstruction, mass Acute protein calorie malnutrition- severe bmi 16, sunken bitemporal muscle. Improving. Change diet to regular and bring 2 trays patient says he is hungry. Monitor BS and might need more insulin coverage. Hypomagnesemia Acute intravascular volume depletion Severe Dehydration Hyponatremia Hypocalcemia requiring multiple IV Ca gluconate Hypomagnesemia. Hypophosphatemia. Refeeding syndrom. Requiring IV and PO supplement. Monior and continue to replenish. Fecal impaction. Resolved --S/P EGD colonoscopy 11/29. GI and general surgery following --ICU electrolyte protocol. daily BMP --likely hypovolemic hyponatremia secondary to severe diarrhea --S/p colonoscopy 12/04/16 --Replace electrolytes, --DC laxatives , continue canasa per GI specialist Heme/ID: Septic Shock resolved Anemia, likely secondary to chronic disease --f/u blood, sputum, urine cultures --continue Cefepime 1gm iv q8h, continue Flagyl 500mg iv q6h --Colitis is the most likely source at this point --1 unit prbc now given hemodynamic instability --recheck hgb stable --daily CBC Endocrine: Hyperglycemia Hypothermia -- SSI, medium scale, q6h --random cortisol 47, unlikely to be adrenal insufficiency --aggressive warming with BairHugger-now off Prophylaxis: GI Prophylaxis Protonix 40 mg IV every 24 hours DVT Prophylaxis -- SCDs SQH 5000 [id number] due to thrombocytopenia Lines: Gavino PT consult recommends rehab Dispo: DC when improved and cleared by consultants Mary Chiang MD Dec 12, 2016 13:42
[2016-12-12] MEDS ORDERED: POTASSIUM PHOSPHATE INJ 30 MMOL in SODIUM CHLOR 0.9% 250 ML INJ 250 ML IV ONE (15:00)
[2016-12-12 16:59] VITALS: BP 117/75; PULSE 98; RESP 18; TEMP 97.8; O2SAT 100
--- NOTE | 2016-12-12 18:01 | HHI.IDPN ---
Note Infectious Disease Note Patient feels okay. Says his stools is still loose. Afebrile. No abdominal pain. Says his vision is decreased today. Colon biopsy shows acute colitis with ischemic features on path. Stool c. diff negative. PAST MEDICAL HISTORY 1. Diabetes mellitus reportedly improved after he lost a lot of weight 2. Arthritis, 3. Coronary artery disease, 4. Hypercholesteremia, 5. Congestive heart failure, 6. Fibromyalgia, 7. Gastroesophageal reflux disease, 8. Hepatitis, 9. Gout. 10. Hypertension, 11. kidney stones 12. History of left hip surgery, 13. History of right nephro lithotripsy and a J-tube stent 14. vasectomy. ALLERGIES NO KNOWN DRUG ALLERGIES. ANTIBIOTICS: Flagyl IV. Fluconazole. SOCIAL HISTORY No tobacco use. Occasional alcohol. Positive cocaine use. OBJECTIVE: Vital Signs Date Time Temp Pulse Resp B/P Pulse Ox O2 Delivery O2 Flow Rate FiO2 12/12/16 16:59 97.8 98 18 117/75 100 12/12/16 12:06 97.0 103 18 121/81 99 12/12/16 08:27 97.0 103 18 121/75 98 12/12/16 04:45 97.8 99 17 116/70 100 12/11/16 23:45 97.7 100 19 118/80 100 12/11/16 22:00 98.0 114 19 115/79 100 12/11/16 12/11/16 12/12/16 15:00 23:00 07:00 Intake Total 800 ml 1000 ml Output Total 700 ml 1600 ml Balance 100 ml -600 ml Intake Oral 800 ml 1000 ml Output Urine Total 700 ml 1600 ml # Bowel Movements 3 12 Laboratory Tests Test 12/12/16 10:23 White Blood Count 3.8 TH/MM3 Red Blood Count 2.76 MIL/MM3 Hemoglobin 7.8 GM/DL Hematocrit 23.2 % Mean Corpuscular Volume 84.0 FL Mean Corpuscular Hemoglobin 28.4 PG Mean Corpuscular Hemoglobin 33.8 % Concent Red Cell Distribution Width 18.9 % Platelet Count 289 TH/MM3 Mean Platelet Volume 8.3 FL Neutrophils (%) (Auto) 50.0 % Lymphocytes (%) (Auto) 33.1 % Monocytes (%) (Auto) 10.4 % Eosinophils (%) (Auto) 3.1 % Basophils (%) (Auto) 3.4 % Neutrophils # (Auto) 1.9 TH/MM3 Lymphocytes # (Auto) 1.3 TH/MM3 Monocytes # (Auto) 0.4 TH/MM3 Eosinophils # (Auto) 0.1 TH/MM3 Basophils # (Auto) 0.1 TH/MM3 CBC Comment DIFF FINAL Differential Comment Laboratory Tests Test 12/12/16 10:23 Sodium Level 138 MEQ/L Potassium Level 4.3 MEQ/L Chloride Level 111 MEQ/L Carbon Dioxide Level 20.0 MEQ/L Anion Gap 7 MEQ/L Blood Urea Nitrogen 5 MG/DL Creatinine 0.43 MG/DL Estimat Glomerular Filtration 216 ML/MIN Rate Random Glucose 108 MG/DL Calcium Level 7.2 MG/DL Protein Corrected Calcium 8.5 MG/DL Phosphorus Level 1.1 MG/DL Total Protein 4.8 GM/DL IMAGING; Last Impressions Chest X-Ray 12/06/16 0000 Signed Impressions: Service Date/Time: Tuesday, December 06, 2016 11:38 - CONCLUSION: Increasing parenchymal opacity right base. Ganesh Jaquez MD FACR Head CT 12/02/16 0000 Signed Impressions: Service Date/Time: Friday, December 02, 2016 14:39 - CONCLUSION: No acute disease. Kan Altamirano MD Abdomen/Pelvis CT 11/28/16 0054 Signed Impressions: Service Date/Time: Monday, November 28, 2016 01:47 - CONCLUSION: Severe constipation. No acute CT findings. Kan Lyons MD PHYSICAL EXAMINATION GENERAL: Cachectic. No acute distress. Awake,alert and oriented. HEENT: Oropharynx no visible lesions. NECK: Supple without adenopathy. LUNGS: Clear breath sound. HEART: Distant S1-S2 without audible murmurs, rubs or gallops. ABDOMEN: Positive bowel sounds. Non tender. EXTREMITIES: No clubbing, cyanosis or edema. Diffuse muscle wasting throughout. SKIN: No rash. NEUROLOGIC: Nonfocal. PSYCHIATRIC: Calm and cooperative. IMPRESSION 1. Septic shock. Improved. 2. Diarrhea. Stool studies negative. Still having loose stools. 3. Severe protein calorie malnutrition. 4. R. lung infiltrate on CXR. ?pneumonia vs atelectasis. 5. Claudia esophagitis. 6. Colitis. RECOMMENDATIONS 1. Continue Flagyl. 2. Continue Fluconazole. Wilber Nunez MD Dec 12, 2016 18:01
[2016-12-12 20:14] VITALS: BP 117/78; PULSE 91; RESP 20; TEMP 97; O2SAT 100
[2016-12-12] MEDS: MESALAMINE 1000 MG SUPP RECTAL SCH (21:00)
[2016-12-13 00:17] VITALS: BP 114/69; PULSE 85; RESP 20; TEMP 97.1; O2SAT 99
[2016-12-13] MEDS: ACETAMINOPHEN/HYDROcodone 325 MG/5 MG TAB PO PRN ×4 (02:14→22:09)
[2016-12-13] MEDS: SODIUM CHLOR 0.9% 1000 ML INJ 1,000 ML IV SCH ×3 (04:21→22:09)
[2016-12-13 05:06] VITALS: BP 117/73; PULSE 86; RESP 20; TEMP 96.4; O2SAT 99
[2016-12-13] MEDS: metroNIDAZOLE 500 MG INJ 100 ML IV SCH ×4 (05:56→21:54)
[2016-12-13] MEDS: INSULIN NovoLIN REGULAR SUPPLEMENTAL SCALE SQ SCH ×4 (06:00→18:00)
[2016-12-13 08:00] VITALS: BP 118/71; PULSE 86; RESP 17; TEMP 97.4; O2SAT 98
[2016-12-13 08:41] LABS: AUTOMATED NEUTROPHIL # 1.6 TH/MM3 (1.8-7.7); BASOPHIL # 0.1 TH/MM3 (0-0.2); BASOPHIL % 2.7 % (0.0-2.0); EOSINOPHIL # 0.1 TH/MM3 (0-0.4); EOSINOPHIL % 3.2 % (0.0-4.0); HEMO FLAGS DIFF FINAL; LYMPHOCYTE # 1.2 TH/MM3 (1.0-4.8); MEAN CELL VOLUME 83.5 FL (80.0-100.0); MEAN CORPUSCULAR HEMOGLOBIN 28.8 PG (27.0-34.0); MEAN CORPUSCULAR HGB CONC 34.5 % (32.0-36.0); MONO % 8.6 % (0.0-8.0); NEUT % 48.5 % (16.0-70.0); PLATELET COUNT 258 TH/MM3 (150-450); RED BLOOD COUNT 2.64 MIL/MM3 (4.50-5.90); RED CELL DISTRIBUTION WIDTH 18.1 % (11.6-17.2); WHITE BLOOD COUNT 3.2 TH/MM3 (4.0-11.0)
[2016-12-13 08:57] LABS: BICARBONATE 19.8 MEQ/L (21.0-32.0); MAGNESIUM 1.2 MG/DL (1.5-2.5); POTASSIUM 4.4 MEQ/L (3.5-5.1)
[2016-12-13] MEDS: NYSTATIN 100,000 U/GM PWD 15 GM BTL TOPICAL SCH ×2 (09:00→22:09)
[2016-12-13] MEDS: SODIUM CHLORIDE 0.9% FLUSH 5 ML FLUSH IV FLUSH SCH ×2 (09:00→21:00)
[2016-12-13] MEDS ORDERED: INSULIN HUMAN REGULAR 1,000 UNITS/10 ML VIAL SQ PRN (09:15)
[2016-12-13] MEDS: LACTOBACILLUS ACIDOPHILUS TAB PO SCH ×2 (09:15→21:52)
[2016-12-13] MEDS: POTASSIUM PHOSPHATE MONOBASIC 500 MG TAB PO SCH ×2 (09:15→21:52)
[2016-12-13] MEDS ORDERED: SODIUM CHLORID 0.9% 500 ML IV SCH (09:15)
[2016-12-13] MEDS ORDERED: METOPROLOL TARTRATE 25 MG TAB PO PRN (09:15)
[2016-12-13] MEDS: FLUCONAZOLE 200 MG TAB PO SCH (09:16)
[2016-12-13] MEDS: LIPASE/PROTEASE/AMYLASE (24,000/76,000/120,000) CAP PO SCH ×3 (09:16→17:59)
[2016-12-13] MEDS: MAGNESIUM OXIDE 400 MG TAB PO SCH (09:16)
[2016-12-13] MEDS: PANTOPRAZOLE SODIUM 40 MG VIAL IV SCH (09:16)
[2016-12-13] MEDS: RIFAXIMIN 550 MG TAB PO SCH ×2 (09:16→21:51)
[2016-12-13 09:23] LABS: CALCIUM-PROTEIN CORRECTED 8.6 MG/DL (8.5-10.1)
[2016-12-13] MEDS: LACTATED RINGER'S 1000 ML IV SCH (09:30)
[2016-12-13 11:37] VITALS: BP 116/71; PULSE 86; RESP 16; TEMP 97.4; O2SAT 98
--- NOTE | 2016-12-13 12:50 | HHI.PR ---
Subjective Remarks NPO plan for flex sig. Patient still with diarrhea overnight. He is having any diarrhea now says she was NPO overnight. No n/v. Denies fever or chills. Objective Vitals Vital Signs Date Time Temp Pulse Resp B/P Pulse Ox O2 Delivery O2 Flow Rate FiO2 12/13/16 11:37 97.4 86 16 116/71 98 12/13/16 08:00 97.4 86 17 118/71 98 12/13/16 05:06 96.4 86 20 117/73 99 12/13/16 03:14 16 12/13/16 00:17 97.1 85 20 114/69 99 12/12/16 20:14 97.0 91 20 117/78 100 12/12/16 16:59 97.8 98 18 117/75 100 I/O 12/12/16 12/12/16 12/12/16 12/13/16 12/13/16 12/13/16 07:00 15:00 23:00 07:00 15:00 23:00 Intake Total 1000 ml 1080 ml Output Total 1600 ml 600 ml 600 ml 300 ml Balance -600 ml 480 ml -600 ml -300 ml Intake Oral 1000 ml 1080 ml Output Urine Total 1600 ml 600 ml 600 ml 300 ml # Bowel Movements 12 7 2 Result Diagram: 12/13/16 0740 12/13/16 0740 Imaging Last Impressions Chest X-Ray 12/06/16 0000 Signed Impressions: Service Date/Time: Tuesday, December 06, 2016 11:38 - CONCLUSION: Increasing parenchymal opacity right base. Ganesh Jaquez MD FACR Head CT 12/02/16 0000 Signed Impressions: Service Date/Time: Friday, December 02, 2016 14:39 - CONCLUSION: No acute disease. Kan Altamirano MD Abdomen/Pelvis CT 11/28/16 0054 Signed Impressions: Service Date/Time: Monday, November 28, 2016 01:47 - CONCLUSION: Severe constipation. No acute CT findings. Kan Lyons MD Objective Remarks GENERAL: Critically ill, cachectic middle-aged male, lying in bed. Pale. HEENT: Sunken bitemporal bones. Atraumatic. Pupils equal, round and reactive. Mucous membranes are dry. NECK: Trachea is midline. There is no JVD. CHEST: Equal chest rise. Clear to auscultation. CARDIOVASCULAR: Regular rhythm. No appreciable murmurs. ABDOMEN: Small healed scar subxiphoid from prior PEG tube placement. Diffuse tenderness to palpation. There is no guarding. No hepatosplenomegaly. MUSCULOSKELETAL: Distal pulses 2+. No pitting Edema. NEUROLOGICAL: Alert, awake, oriented. Follows commands in all 4 extremities. A/P Assessment and Plan Assessment: This is a 41-year-old male with a history of failure to thrive who presents with multiple acute on chronic medical problems including kidney injury , septic shock, diarrhea, possible colitis. He is very critically ill this time , and descending obstruction has to be ruled out. We will admit him to the ICU and monitor him carefully. We will empirically cover him with antibiotics and await culture data. Gi, general surgery and ID following Plan by systems: Neurologic: Metabolic encephalopathy. Resolving neurochecks Avoid long-acting sedating meds - Head CT scan no acute findings Respiratory: Atelectasis Wean oxygen by nasal cannula for goal SPO2 greater than 92% Incentive spirometer to bedside Cardiovascular: Sinus tachycardia Septic shock-resolved Status post 4 L normal saline. MIVF LR @ 200cc/hr-reduce to 100 ml per hour --critical care bedside ultrasound 11/28: poor acoustic windows. grossly preserved biventricular function with moderately collapsable IVC with quiet respiration. --trend lactate back to normal --was on norepinephrine while in ICU Renal: Acute Kidney Injury --Mancia, q1h uop, strict i/o's --may be multifactorial, including pre-renal secondary to shock --Strict I/Os FEN/GI: Diarrhea Lactic Acidosis Severe constipation on CT with abdominal pain and lactic acidosis, R/o obstruction, mass Acute protein calorie malnutrition- severe bmi 16, sunken bitemporal muscle. Improving. Change diet to regular and bring 2 trays patient says he is hungry. Monitor BS and might need more insulin coverage. Hypomagnesemia Acute intravascular volume depletion Severe Dehydration Hyponatremia Hypocalcemia requiring multiple IV Ca gluconate Hypomagnesemia. Hypophosphatemia. Refeeding syndrom. Requiring IV and PO supplement. Monior and continue to replenish. Fecal impaction. Resolved --S/P EGD colonoscopy 11/29. GI and general surgery following --ICU electrolyte protocol. daily BMP --likely hypovolemic hyponatremia secondary to severe diarrhea --S/p colonoscopy 12/04/16 --Replace electrolytes, --DC laxatives , continue canasa per GI specialist --plan for sig flex 11/13/16 by GI service Heme/ID: Septic Shock resolved Anemia, likely secondary to chronic disease --f/u blood, sputum, urine cultures --continue Cefepime 1gm iv q8h, continue Flagyl 500mg iv q6h --Colitis is the most likely source at this point --1 unit prbc now given hemodynamic instability --recheck hgb stable --daily CBC Endocrine: Hyperglycemia Hypothermia -- SSI, medium scale, q6h --random cortisol 47, unlikely to be adrenal insufficiency --aggressive warming with BairHugger-now off Prophylaxis: GI Prophylaxis Protonix 40 mg IV every 24 hours DVT Prophylaxis -- SCDs SQH 5000 [id number] due to thrombocytopenia Lines: [facility] PT consult recommends rehab Dispo: DC when improved and cleared by consultants Mary Chiang MD Dec 13, 2016 12:50
[2016-12-13] MEDS: MAGNESIUM SULFATE 1 GM PREMIX 100 ML IV SCH ×4 (13:00→18:00)
[2016-12-13] MEDS ORDERED: MAGNESIUM SULFATE 4 GM PREMIX 100 ML IV ONE (13:00)
--- NOTE | 2016-12-13 13:37 | PD.PROCEDR ---
GI Procedure REFERRING PHYSICIAN [facility]I PROCEDURE PERFORMED Flexible sigmoidoscopy with biopsy INDICATION FOR PROCEDURE Persistent Diarrhea PROCEDURE: The procedure, risks and benefits were discussed with Mr. Arce and informed consent was obtained. Anesthesia sedated him with Diprivan. He was placed in the left lateral decubitus position. Flexible Sigmoidoscopy: The Pentax videoscope was introduced through the rectum and advanced to the sigmoid. Retroflexion was performed in the rectum. Colonic prep was good FINDINGS: As the scope was slowly withdrawn colonic mucosa was carefully inspected the patient was noted to have patchy erythema in the sigmoid and the rectum with some edema specifically in the rectum and very few superficial erosions in the rectum otherwise unremarkable biopsies were taken from the sigmoid and the rectum this is probably nonspecific colitis ESTIMATED BLOOD LOSS: None SPECIMENS REMOVED: Sigmoid and rectal biopsies COMPLICATIONS: None IMPRESSION: Colitis probably nonspecific mild PLAN: Await biopsy Stop magnesium supplementation orally only use IV for now Start Lomotil Continue Ambrose Lind MD Dec 13, 2016 13:37
[2016-12-13] MEDS ORDERED: PROPOFOL 200 MG/20 ML AMP IV ONE (14:00)
[2016-12-13] MEDS ORDERED: DO NOT ADM ANY ANTICOAGULANT DRUGS XX PRN (14:30)
[2016-12-13 16:00] VITALS: BP 126/79; PULSE 92; RESP 17; TEMP 96.7; O2SAT 99
[2016-12-13 20:00] VITALS: BP 122/93; PULSE 96; RESP 27; TEMP 96.2; O2SAT 99
[2016-12-13] MEDS: MESALAMINE 1000 MG SUPP RECTAL SCH (21:00)
[2016-12-13] MEDS: DIPHENOXYLATE/ATROPINE 2.5 MG/0.025 MG TAB PO PRN (21:53)
[2016-12-13] MEDS: LACTATED RINGER'S 1000 ML INJ 1,000 ML IV SCH (22:09)
[2016-12-13] MEDS: CHLORHEXIDINE GLUCONATE 2 % 1 PACK (2 CLOTHS) TOP SCH (22:09)
[2016-12-14] VITALS: BP 108/70; PULSE 99; RESP 20; TEMP 98.7; O2SAT 99
[2016-12-14] MEDS: ACETAMINOPHEN/HYDROcodone 325 MG/5 MG TAB PO PRN ×5 (02:51→23:11)
[2016-12-14] MEDS: metroNIDAZOLE 500 MG INJ 100 ML IV SCH ×4 (02:58→23:09)
[2016-12-14 04:00] VITALS: BP 121/78; PULSE 94; RESP 16; TEMP 98; O2SAT 96
[2016-12-14] MEDS: SODIUM CHLOR 0.9% 1000 ML INJ 1,000 ML IV SCH ×2 (06:21→20:21)
[2016-12-14] MEDS: INSULIN NovoLIN REGULAR SUPPLEMENTAL SCALE SQ SCH ×4 (06:22→18:00)
[2016-12-14 08:00] VITALS: BP 133/87; PULSE 92; RESP 20; TEMP 97.3; O2SAT 100
[2016-12-14] MEDS: LACTOBACILLUS ACIDOPHILUS TAB PO SCH ×2 (08:53→23:08)
[2016-12-14] MEDS: DIPHENOXYLATE/ATROPINE 2.5 MG/0.025 MG TAB PO PRN ×2 (08:54→23:09)
[2016-12-14] MEDS: POTASSIUM PHOSPHATE MONOBASIC 500 MG TAB PO SCH ×2 (08:54→23:10)
[2016-12-14] MEDS: LIPASE/PROTEASE/AMYLASE (24,000/76,000/120,000) CAP PO SCH ×3 (08:55→16:49)
[2016-12-14] MEDS: FLUCONAZOLE 200 MG TAB PO SCH (08:55)
[2016-12-14] MEDS: RIFAXIMIN 550 MG TAB PO SCH ×2 (08:55→23:09)
[2016-12-14] MEDS: PANTOPRAZOLE SODIUM 40 MG VIAL IV SCH (08:56)
[2016-12-14] MEDS: NYSTATIN 100,000 U/GM PWD 15 GM BTL TOPICAL SCH ×2 (08:58→21:00)
--- NOTE | 2016-12-14 09:02 | HHI.GIFU ---
Subjective Remarks Resting in bed. Had several loose bowel movements overnight, but so far none this morning. However, does have the urge to move his bowels soon. He last took Lomotil last night, did not know he had to ask for this. (Jolly Restrepo) Objective Vitals I&O Vital Signs Date Time Temp Pulse Resp B/P Pulse Ox O2 Delivery O2 Flow Rate FiO2 12/14/16 08:00 97.3 92 20 133/87 100 12/14/16 04:55 16 12/14/16 04:00 98.0 94 16 121/78 96 12/14/16 00:00 98.7 99 20 108/70 99 12/13/16 20:00 96.2 96 27 122/93 99 12/13/16 16:00 96.7 92 17 126/79 99 12/13/16 13:50 78 16 121/84 99 12/13/16 13:37 76 18 124/88 97 12/13/16 13:28 97.7 76 18 126/84 96 12/13/16 11:37 97.4 86 16 116/71 98 I/O 12/13/16 12/13/16 12/13/16 12/14/16 12/14/16 12/14/16 07:00 15:00 23:00 07:00 15:00 23:00 Intake Total 820 ml 321 ml Output Total 300 ml 502 ml 104 ml Balance -300 ml 820 ml -181 ml -104 ml Intake Oral 720 ml IV Total 321 ml Other 100 ml Output Urine Total 300 ml 502 ml 100 ml Stool Total 4 ml # Voids 3 # Bowel Movements 5 8 Imaging Last Impressions Chest X-Ray 12/06/16 0000 Signed Impressions: Service Date/Time: Tuesday, December 06, 2016 11:38 - CONCLUSION: Increasing parenchymal opacity right base. Ganesh Jaquez MD FACR Head CT 12/02/16 0000 Signed Impressions: Service Date/Time: Friday, December 02, 2016 14:39 - CONCLUSION: No acute disease. Kan Altamirano MD Abdomen/Pelvis CT 11/28/16 0054 Signed Impressions: Service Date/Time: Monday, November 28, 2016 01:47 - CONCLUSION: Severe constipation. No acute CT findings. Kan Lyons MD Physical Exam HEENT: Cachexia, normocephalic; atraumatic; no jaundice. CHEST: CTA CARDIAC: RRR ABDOMEN: Soft, nondistended, nontender; no hepatosplenomegaly; bowel sounds are present in all four quadrants. EXTREMITIES: No clubbing, cyanosis, or edema. BUSINESS FUNCTIONAL ANALYST: No focal deficits; lethargic (Jolly Restrepo ASSOCIATE PROGRAM MANAGER) Assessment and Plan Plan ASSESSMENT: - Abdominal pain more on RLQ, diarrhea ( negative for C-diff), stool cx negative. Abdomen/Pelvis CT (11/28/16)----> Severe constipation. No acute CT findings. S/P EGD/colonoscopy on (11/29/16) showed esophagitis, poor colonic prep, no signs of bleeding. Pathology acutely inflamed and markedly reactive ulcerated squamous mucosa with a small number budding yeast in the superficial squamous layers consistent with Claudia esophagitis. S/P Colonoscopy with 2 day prep (12/04/16)---> ulceration, colitis in descending sigmiod, rectum, s/p biopsies , retroflexed views medium internal hemorrhoids, internal hemorrhoids, external hemorrhoids. Pathology colonic mucosal biopsy without significant histopathologic abnormality malady negative for colitis and ulceration in the descending colon ulcer biopsy, sigmoid colon with mild acute nonspecific colitis, rectal biopsy with acute colitis exhibiting ischemic features S/P GS evaluation. Canasa Suppository. Pain has subsided, but was having persistent diarrhea and therefore had flexible sigmoidoscopy (12/13/16)---> mild colitis, probably nonspecific, pathology pending. Recommended to continue Canasa, Xifaxan, Creon, Canasa, Lactinex. Mag oxide po was discontinued. Lomotil was added. No bm so far this am. CDiff (-) on 12/08 esd negative. - Claudia esophagitis. PPI. Diflucan. - Constipation with ? overflow diarrhea. s/p SSE X 3, Dulcolax supp, senna. Now diarrhea - Anemia (normocytic, normochromic )- likely multifactorial. 7.05/03..0 - Failure to thrive/ wt loss- unknown etiology, patient states he has been eating, denies nausea or vomiting - Sepsis. IMPROVED, ID following. - Hyponatremia- resolved - Hypokalemia per attending - AKF Resolved - Fibromyalgia/ HTN, CAD, DM per attending Plan: - JHONY - PPI - Diflucan 200mg mg po daily x 14 days - Canasa - Xifaxan - Creon - Lactinex - Lomotil prn - Cont. bowel regimen - Monitor HH - Transfuse as needed - Patient seen and examined by Dr. Wyatt and myself and this note is written on his behalf. (Jolly Restrepo) Physician Comments Patient seen and examined Agree with above Continue with current supportive care Monitor labs (Ambrose Wyatt MD) Jolly Restrepo Dec 14, 2016 09:02 Ambrose Wyatt MD Dec 14, 2016 21:27
[2016-12-14] MEDS: LACTATED RINGER'S 1000 ML IV SCH (09:15)
[2016-12-14 12:00] VITALS: BP 129/86; PULSE 95; RESP 20; TEMP 96.5; O2SAT 100
[2016-12-14 16:00] VITALS: BP 142/81; PULSE 107; RESP 20; TEMP 96.7; O2SAT 100
--- NOTE | 2016-12-14 18:11 | HHI.IDPN ---
Note Infectious Disease Note Patient feels okay. Very good appetite. Having uncontrolled copious stools today. Had colonoscopy yesterday 12/13/16. Pathology show no significant pathology. Afebrile. Mild abdominal pain. Notes skin rash on abdomen with itching. Blurry vision. Previous colon biopsy shows acute colitis with ischemic features on path. Stool c. diff negative. PAST MEDICAL HISTORY 1. Diabetes mellitus reportedly improved after he lost a lot of weight 2. Arthritis, 3. Coronary artery disease, 4. Hypercholesteremia, 5. Congestive heart failure, 6. Fibromyalgia, 7. Gastroesophageal reflux disease, 8. Hepatitis, 9. Gout. 10. Hypertension, 11. kidney stones 12. History of left hip surgery, 13. History of right nephro lithotripsy and a J-tube stent 14. vasectomy. ALLERGIES NO KNOWN DRUG ALLERGIES. ANTIBIOTICS: Flagyl IV. Fluconazole. SOCIAL HISTORY No tobacco use. Occasional alcohol. Positive cocaine use. OBJECTIVE: Vital Signs Date Time Temp Pulse Resp B/P Pulse Ox O2 Delivery O2 Flow Rate FiO2 12/14/16 16:00 96.7 107 20 142/81 100 12/14/16 12:00 96.5 95 20 129/86 100 12/14/16 08:00 97.3 92 20 133/87 100 12/14/16 04:55 16 12/14/16 04:00 98.0 94 16 121/78 96 12/14/16 00:00 98.7 99 20 108/70 99 12/13/16 20:00 96.2 96 27 122/93 99 12/13/16 12/13/16 12/14/16 15:00 23:00 07:00 Intake Total 820 ml 321 ml Output Total 502 ml 104 ml Balance 820 ml -181 ml -104 ml Intake Oral 720 ml IV Total 321 ml Other 100 ml Output Urine Total 502 ml 100 ml Stool Total 4 ml # Voids 3 # Bowel Movements 5 8 Laboratory Tests Test 12/13/16 07:40 White Blood Count 3.2 TH/MM3 Red Blood Count 2.64 MIL/MM3 Hemoglobin 7.6 GM/DL Hematocrit 22.0 % Mean Corpuscular Volume 83.5 FL Mean Corpuscular Hemoglobin 28.8 PG Mean Corpuscular Hemoglobin 34.5 % Concent Red Cell Distribution Width 18.1 % Platelet Count 258 TH/MM3 Mean Platelet Volume 8.0 FL Neutrophils (%) (Auto) 48.5 % Lymphocytes (%) (Auto) 37.0 % Monocytes (%) (Auto) 8.6 % Eosinophils (%) (Auto) 3.2 % Basophils (%) (Auto) 2.7 % Neutrophils # (Auto) 1.6 TH/MM3 Lymphocytes # (Auto) 1.2 TH/MM3 Monocytes # (Auto) 0.3 TH/MM3 Eosinophils # (Auto) 0.1 TH/MM3 Basophils # (Auto) 0.1 TH/MM3 CBC Comment DIFF FINAL Differential Comment Laboratory Tests Test 12/13/16 07:40 Sodium Level 138 MEQ/L Potassium Level 4.4 MEQ/L Chloride Level 108 MEQ/L Carbon Dioxide Level 19.8 MEQ/L Anion Gap 10 MEQ/L Blood Urea Nitrogen 4 MG/DL Creatinine 0.40 MG/DL Estimat Glomerular Filtration 235 ML/MIN Rate Random Glucose 85 MG/DL Calcium Level 7.3 MG/DL Protein Corrected Calcium 8.6 MG/DL Phosphorus Level 2.5 MG/DL Magnesium Level 1.2 MG/DL Total Protein 4.8 GM/DL IMAGING; Chest X-Ray 12/06/16 0000 Signed Impressions: Service Date/Time: Tuesday, December 06, 2016 11:38 - CONCLUSION: Increasing parenchymal opacity right base. Ganesh Jaquez MD FACR Head CT 12/02/16 0000 Signed Impressions: Service Date/Time: Friday, December 02, 2016 14:39 - CONCLUSION: No acute disease. Kan Altamirano MD Abdomen/Pelvis CT 11/28/16 0054 Signed Impressions: Service Date/Time: Monday, November 28, 2016 01:47 - CONCLUSION: Severe constipation. No acute CT findings. Kan Lyons MD PHYSICAL EXAMINATION GENERAL: Cachectic. No acute distress. Awake,alert and oriented. HEENT: Oropharynx no visible lesions. NECK: Supple without adenopathy. LUNGS: Clear breath sounds. HEART: Distant S1-S2 without audible murmurs, rubs or gallops. ABDOMEN: Positive bowel sounds. Non tender. EXTREMITIES: No clubbing, cyanosis or edema. Diffuse muscle wasting throughout. SKIN: Macular rash on lower abdomen and buttock. NEUROLOGIC: Nonfocal. PSYCHIATRIC: Calm and cooperative. IMPRESSION 1. Septic shock. Improved. 2. Diarrhea. Stool studies negative. Still having loose stools. 3. Severe protein calorie malnutrition. 4. R. lung infiltrate on CXR. ?pneumonia vs atelectasis. 5. Claudia esophagitis. 6. Colitis - Non specific. RECOMMENDATIONS 1. Stop Flagyl. 2. Continue Fluconazole. 3. Send stools for O & P, AFB, CMV, Fecal leukocytes, Eosinophils. 4. Repeat the CXR. 5. Benadryl for itching. Wilber uNnez MD Dec 14, 2016 18:11
--- NOTE | 2016-12-14 18:44 | HHI.PR ---
Subjective Remarks Patient complains of persistent diarrhea WBC trending down Hemoglobin trending down Denies fevers or chills Patient's heart rate in the 90s. Objective Vitals Vital Signs Date Time Temp Pulse Resp B/P Pulse Ox O2 Delivery O2 Flow Rate FiO2 12/14/16 16:00 96.7 107 20 142/81 100 12/14/16 12:00 96.5 95 20 129/86 100 12/14/16 08:00 97.3 92 20 133/87 100 12/14/16 04:55 16 12/14/16 04:00 98.0 94 16 121/78 96 12/14/16 00:00 98.7 99 20 108/70 99 12/13/16 20:00 96.2 96 27 122/93 99 I/O 12/13/16 12/13/16 12/13/16 12/14/16 12/14/16 12/14/16 07:00 15:00 23:00 07:00 15:00 23:00 Intake Total 820 ml 321 ml Output Total 300 ml 502 ml 104 ml 475 ml Balance -300 ml 820 ml -181 ml -104 ml -475 ml Intake Oral 720 ml IV Total 321 ml Other 100 ml Output Urine Total 300 ml 502 ml 100 ml 475 ml Stool Total 4 ml # Voids 3 # Bowel Movements 5 8 2 Result Diagram: 12/13/16 0740 12/13/16 0740 Imaging Last Impressions Chest X-Ray 12/14/16 0000 Signed Impressions: Service Date/Time: December 18:44 - CONCLUSION: Improved right lower lobe infiltrate. Kan Borges MD Head CT 12/02/16 0000 Signed Impressions: Service Date/Time: Friday, December 02, 2016 14:39 - CONCLUSION: No acute disease. Kan Altamirano MD Abdomen/Pelvis CT 11/28/16 0054 Signed Impressions: Service Date/Time: Monday, November 28, 2016 01:47 - CONCLUSION: Severe constipation. No acute CT findings. Kan Lyons MD Objective Remarks GENERAL: Critically ill, cachectic middle-aged male, lying in bed. Pale. HEENT: Sunken bitemporal bones. Atraumatic. Pupils equal, round and reactive. Mucous membranes are dry. NECK: Trachea is midline. There is no JVD. CHEST: Equal chest rise. Clear to auscultation. CARDIOVASCULAR: Regular rhythm. No appreciable murmurs. ABDOMEN: Small healed scar subxiphoid from prior PEG tube placement. Diffuse tenderness to palpation. There is no guarding. No hepatosplenomegaly. MUSCULOSKELETAL: Distal pulses 2+. No pitting Edema. NEUROLOGICAL: Alert, awake, oriented. Follows commands in all 4 extremities. Medications and IVs Current Medications Medications (Trade) Dose Ordered Sig/Abbi Route Start Time Stop Time Status Last Admin (Levophed-Dextrose Drip) 250 ml @ 0 mls/hr TITRATE IV 11/28/16 03:15 11/28/16 03:34 (D50w (Vial) Inj) 25 ml UNSCH PRN IV PUSH 11/28/16 04:30 Insulin Human Regular 1 1 Q6HR SQ 11/28/16 06:00 12/14/16 06:22 Lactated Ringer's 1,000 ml @ 60 mls/hr [id number] IV 11/28/16 04:21 11/28/16 05:15 (NS 1000 ml Inj) 1,000 ml @ 150 mls/hr Q6H40M IV 11/28/16 04:21 12/14/16 06:21 (NS Flush) 2 ml UNSCH PRN IV FLUSH 11/28/16 04:30 (NS Flush) 2 ml BID IV FLUSH 11/28/16 09:00 12/12/16 09:43 (Protonix Inj) 40 mg DAILY IV 11/28/16 09:00 12/14/16 08:56 (Zofran Inj) 4 mg Q6H PRN IV 11/28/16 04:30 (Heparin Inj) 5,000 units Q12H SQ 11/28/16 06:00 Hold 11/28/16 05:11 Miscellaneous Information 1 Q361D XX 11/28/16 04:30 (Chlorhexidine 2% Cloth) Taper DAILY@04 TOP 11/29/16 04:00 11/25/17 03:59 12/02/16 04:00 Chlorhexidine Gluconate 3 pack 3 pack UNSCH PRN TOP 11/28/16 04:30 (Flagyl 500 Mg Inj) 100 ml @ 100 mls/hr Q6H IV 11/28/16 10:00 12/14/16 16:49 ([place] 5-325 Mg) 1 tab Q4H PRN PO 11/28/16 17:30 12/14/16 16:48 (Dilaudid Pf Inj) 0.5 mg Q4H PRN IV PUSH 11/29/16 01:00 11/29/16 11:39 (Tums Chew) 500 mg Q2H PRN CHEW 12/01/16 11:00 (Lactinex) 1 tab Q12HR PO 12/01/16 14:00 12/14/16 08:53 (Canasa Supp) 1,000 mg HS RECTAL 12/04/16 21:00 12/11/16 20:29 (Diflucan) 200 mg DAILY PO 12/07/16 09:00 12/21/16 08:59 12/14/16 08:55 (Mycostatin Powder) 1 applic DAILY PRN TOPICAL 12/08/16 20:00 12/12/16 09:42 (Mycostatin Powder) 1 applic Q12HR TOPICAL 12/09/16 11:15 12/14/16 08:58 (Zinc Oxide 20% Oint) 1 applic UNSCH PRN TOPICAL 12/09/16 11:15 (Xifaxan) 550 mg BID PO 12/10/16 21:00 12/14/16 08:55 (Creon 24-76-120) 1 cap TID PO 12/10/16 18:00 12/14/16 16:49 ([place] [facility] [place]) 2 spray Q4H PRN EACH NARE 12/12/16 10:45 12/12/16 16:13 Potassium Phosphate 1000 mg 1,000 mg Q12HR PO 12/12/16 14:00 12/14/16 08:54 (Lr 1000 ml Inj) 1,000 ml @ 30 mls/hr Q24H IV 12/13/16 09:15 12/13/16 09:30 (Lomotil Tab) 1 tab Q6H PRN PO 12/13/16 13:30 12/14/16 08:54 A/P Problem List: (1) Severe sepsis ICD Code: A41.9 Status: Resolved Plan: This is a 41-year-old male with a history of failure to thrive who presents with multiple acute and chronic medical problems including kidney injury, septic shock, diarrhea and possible colitis. The patient was very critically ill at the time of presentation and was admitted to the intensive care unit. GI and general surgery were consulted and are following. Unclear etiology, possible pneumonia due to infiltrate found on chest x-ray. (2) Septic shock ICD Code: A41.9 Status: Acute Plan: Status post treatment with 4 L of IV fluid normal saline. Septic shock, resolved. Treated with IV fluids, empiric IV antibiotics. Continue antibiotics as per ID. The patient currently on by mouth fluconazole, patient previously on IV cefepime. (3) Metabolic encephalopathy ICD Code: G93.41 Status: Resolved Plan: Metabolic encephalopathy has been resolved. Likely secondary to sepsis. No resolve. Continue to monitor neurological status. (4) Diarrhea ICD Code: R19.7 Status: Resolved Plan: Patient is status post EGD colonoscopy on 11/29. GI and general surgery following. Status post flexible sigmoidoscopy with biopsy on 12/13/16 Follow-up biopsy. Check HIV test if not previously done. (5) FELICITAS (acute kidney injury) ICD Code: N17.9 Status: Resolved Plan: Result of Tamiflu administration. Continue to monitor BMP. (6) Hypothermia ICD Code: T68.XXXA Status: Acute Plan: A shunt with intermittent episodes of hypothermia. Status post aggressive warming with Bear hugger which is now off in the intensive care unit. Random cortisol 47 and likely to be adrenal insufficiency. (7) Hyperglycemia ICD Code: R73.9 Status: Acute Plan: Blood sugars are improving. Likely secondary to acute illness. Check hemoglobin A1c if not previously done. (8) Anemia ICD Code: D64.9 Status: Chronic Plan: Status post infusion of 1 unit of PRBCs in the intensive care unit. Hemoglobin seemed to be dropping down from 8.4-7.8-7.6. Idea to monitor hemoglobin and transfuse as needed for hemoglobin is 7 or symptomatic anemia. No active signs of bleeding. (9) Constipation ICD Code: K59.00 Status: Resolved Plan: Initially the patient presented with constipation and what seemed to be overflow diarrhea. Diarrhea is still present. (10) Hypocalcemia ICD Code: E83.51 Status: Resolved Plan: Likely secondary to decreased oral intake. Replaced with IV calcium gluconate. Now resolved. Continue to monitor calcium levels. (11) Leukopenia ICD Code: D72.819 Status: Acute Plan: WBC seems to be trending down from 6.126 5.1-5.8-2.8-3.2 continue to monitor CBC with differential. If he continues to drift down and then I will consult hematology. This likely secondary to acute illness. Problem Qualifiers (1) Diarrhea: Qualified Code: A09 - Diarrhea of presumed infectious origin (2) Anemia: Fredo Anaya MD Dec 14, 2016 18:44
--- NOTE | 2016-12-14 19:20 | RADRPT ---
EXAM DATE/TIME: 12/14/2016 18:44 [facility] COMPARISON: CHEST SINGLE AP, December 06, 2016, 11:38. INDICATIONS : Infiltrate. MEDICAL HISTORY : Hypertension. Cardiovascular disease. Diabetes mellitus type II. Sepsis, PSA SURGICAL HISTORY : None. ENCOUNTER: Subsequent ACUITY: 4 - 6 days PAIN SCORE: 0/10 LOCATION: chest FINDINGS: There is mildly improved but not completely resolved infiltrate of the right lung base. No new infilt rate. No pleural effusion. No pneumothorax. Heart size stable, within normal limits. CONCLUSION: Improved right lower lobe infiltrate. Kan Borges MD on December 14, 2016 at 19:17 Board Certified Radiologist. This report was verified electronically.
[2016-12-14 20:00] VITALS: BP 131/80; PULSE 102; RESP 20; TEMP 98.5; O2SAT 99
[2016-12-14] MEDS: LACTATED RINGER'S 1000 ML INJ 1,000 ML IV SCH (20:34)
[2016-12-14] MEDS: MESALAMINE 1000 MG SUPP RECTAL SCH (21:00)
[2016-12-14] MEDS: SODIUM CHLORIDE 0.9% FLUSH 5 ML FLUSH IV FLUSH SCH (23:08)
[2016-12-15] VITALS (7 sets, daily range): BP systolic 122–146; BP diastolic 80–97; PULSE 96–105; RESP 18–21; TEMP 96.7–97.7; O2SAT 94–100
[2016-12-15] MEDS: SODIUM CHLOR 0.9% 1000 ML INJ 1,000 ML IV SCH (03:01)
[2016-12-15] MEDS: metroNIDAZOLE 500 MG INJ 100 ML IV SCH ×4 (03:22→23:00)
[2016-12-15] MEDS: ACETAMINOPHEN/HYDROcodone 325 MG/5 MG TAB PO PRN ×4 (03:29→23:01)
[2016-12-15] MEDS: CHLORHEXIDINE GLUCONATE 2 % 1 PACK (2 CLOTHS) TOP SCH (04:00)
[2016-12-15] MEDS: INSULIN NovoLIN REGULAR SUPPLEMENTAL SCALE SQ SCH ×4 (07:32→18:00)
[2016-12-15] MEDS: DIPHENOXYLATE/ATROPINE 2.5 MG/0.025 MG TAB PO PRN (07:32)
[2016-12-15] MEDS: LACTOBACILLUS ACIDOPHILUS TAB PO SCH ×2 (08:04→23:01)
[2016-12-15] MEDS: FLUCONAZOLE 200 MG TAB PO SCH (08:04)
[2016-12-15] MEDS: LIPASE/PROTEASE/AMYLASE (24,000/76,000/120,000) CAP PO SCH ×3 (08:04→17:38)
[2016-12-15] MEDS: POTASSIUM PHOSPHATE MONOBASIC 500 MG TAB PO SCH ×2 (08:05→23:01)
[2016-12-15] MEDS: RIFAXIMIN 550 MG TAB PO SCH ×2 (08:06→23:01)
[2016-12-15] MEDS: PANTOPRAZOLE SODIUM 40 MG VIAL IV SCH (08:06)
[2016-12-15] MEDS: NYSTATIN 100,000 U/GM PWD 15 GM BTL TOPICAL SCH ×2 (08:08→23:05)
[2016-12-15] MEDS: SODIUM CHLORIDE 0.9% FLUSH 5 ML FLUSH IV FLUSH SCH ×2 (08:17→23:02)
[2016-12-15] MEDS: LACTATED RINGER'S 1000 ML IV SCH (09:15)
--- NOTE | 2016-12-15 13:42 | HHI.GIFU ---
Subjective Remarks Still having diarrhea, states he forgets to ask for lomotil. Has had 2-3 so far today. Tolerating diet. (Jolly Restrepo) Objective Vitals I&O Vital Signs Date Time Temp Pulse Resp B/P Pulse Ox O2 Delivery O2 Flow Rate FiO2 12/15/16 12:00 96.8 102 21 146/93 98 12/15/16 10:17 96 21 12/15/16 08:00 97.2 96 20 122/80 98 12/15/16 06:44 97.6 96 18 128/81 98 12/15/16 04:46 18 12/15/16 00:00 97.0 98 20 130/88 100 12/14/16 20:00 98.5 102 20 131/80 99 12/14/16 16:00 96.7 107 20 142/81 100 I/O 12/14/16 12/14/16 12/14/16 12/15/16 12/15/16 12/15/16 07:00 15:00 23:00 07:00 15:00 23:00 Intake Total 480 ml Output Total 104 ml 475 ml 2200 ml 0 ml Balance -104 ml -475 ml -1720 ml 0 ml Intake Oral 480 ml Output Urine Total 100 ml 475 ml 450 ml 0 ml Stool Total 4 ml 1750 ml # Bowel Movements 2 4 2 Laboratory Laboratory Tests Test 12/14/16 20:30 Eosinophil Stool Smear NONE SEEN Date/Time Procedure Status Source Growth 12/14/16 20:30 Cryptosporidium Exam Resulted Stool Stool Pending 12/14/16 20:30 Stool Pus (ANGELIQUE) - Final Resulted Stool Stool 12/14/16 20:30 Giardia Antigen (ANGELIQUE) Resulted Stool Stool Pending 12/14/16 20:30 Acid Fast Stain Received Stool Stool Pending 12/14/16 20:30 Mycobacterial Culture Received Stool Stool Pending Imaging Last Impressions Chest X-Ray 12/14/16 0000 Signed Impressions: Service Date/Time: December 18:44 - CONCLUSION: Improved right lower lobe infiltrate. Kan Borges MD Head CT 12/02/16 0000 Signed Impressions: Service Date/Time: Friday, December 02, 2016 14:39 - CONCLUSION: No acute disease. Kan Altamirano MD Abdomen/Pelvis CT 11/28/16 0054 Signed Impressions: Service Date/Time: Monday, November 28, 2016 01:47 - CONCLUSION: Severe constipation. No acute CT findings. Kan Lyons MD Physical Exam HEENT: Cachexia, normocephalic; atraumatic; no jaundice. CHEST: CTA CARDIAC: RRR ABDOMEN: Soft, nondistended, nontender; no hepatosplenomegaly; bowel sounds are present in all four quadrants. EXTREMITIES: No clubbing, cyanosis, or edema. NURSE PRACTITIONER PHYSICIANS ASSISTANT: No focal deficits; lethargic (RestrepoJolly Mejia [employer]) Assessment and Plan Plan ASSESSMENT: - Abdominal pain more on RLQ, diarrhea ( negative for C-diff), stool cx negative. Abdomen/Pelvis CT (11/28/16)----> Severe constipation. No acute CT findings. S/P EGD/colonoscopy on (11/29/16) showed esophagitis, poor colonic prep, no signs of bleeding. Pathology acutely inflamed and markedly reactive ulcerated squamous mucosa with a small number budding yeast in the superficial squamous layers consistent with Claudia esophagitis. S/P Colonoscopy with 2 day prep (12/04/16)---> ulceration, colitis in descending sigmiod, rectum, s/p biopsies , retroflexed views medium internal hemorrhoids, internal hemorrhoids, external hemorrhoids. Pathology colonic mucosal biopsy without significant histopathologic abnormality malady negative for colitis and ulceration in the descending colon ulcer biopsy, sigmoid colon with mild acute nonspecific colitis, rectal biopsy with acute colitis exhibiting ischemic features S/P GS evaluation. Canasa Suppository. Pain has subsided, but was having persistent diarrhea and therefore had flexible sigmoidoscopy (12/13/16)---> mild colitis, probably nonspecific, pathology with colonic mucosa without significant histologic abnormality. Recommended to continue Canasa, Xifaxan, Creon, Canasa, Lactinex. Mag oxide po was discontinued. Lomotil was added, but patient forgets to ask for this. Slight improvement, but still having diarrhea. CDiff (-) on 12/08 esd negative. - Claudia esophagitis. PPI. Diflucan. - Constipation with ? overflow diarrhea. s/p SSE X 3, Dulcolax supp, senna. Now diarrhea - Anemia (normocytic, normochromic )- likely multifactorial. 7.6/22..0 - Failure to thrive/ wt loss- unknown etiology, patient states he has been eating, denies nausea or vomiting - Sepsis. IMPROVED, ID following. - AKF Resolved - Fibromyalgia/ HTN, CAD, DM per attending Plan: - JHONY- Add benefiber - PPI - Diflucan 200mg mg po daily x 14 days - Canasa - Xifaxan - Creon - Lactinex - Lomotil prn- consider scheduling for a few days - Cont. bowel regimen - Monitor HH - Transfuse as needed - Patient seen and examined by Dr. Wyatt and myself and this note is written on his behalf. (Jolly Restrepo) Physician Comments Patient seen and examined Agree with above Continue with current supportive care Monitor labs Lomotil will now be scheduled as opposed to as needed (Ambrose Wyatt MD ) Jolly Restrepo Dec 15, 2016 13:42 Ambrose Wyatt MD Dec 15, 2016 17:30
[2016-12-15 20:38] LABS: AUTOMATED NEUTROPHIL # 2.9 TH/MM3 (1.8-7.7); BASOPHIL # 0.1 TH/MM3 (0-0.2); BASOPHIL % 1.1 % (0.0-2.0); EOSINOPHIL # 0.1 TH/MM3 (0-0.4); EOSINOPHIL % 2.4 % (0.0-4.0); HEMO FLAGS DIFF FINAL; LYMPH % 24.4 % (9.0-44.0); LYMPHOCYTE # 1.2 TH/MM3 (1.0-4.8); MEAN CELL VOLUME 86.3 FL (80.0-100.0); MEAN CORPUSCULAR HEMOGLOBIN 29.7 PG (27.0-34.0); MEAN CORPUSCULAR HGB CONC 34.4 % (32.0-36.0); NEUT % 62.1 % (16.0-70.0); PLATELET COUNT 291 TH/MM3 (150-450); RED BLOOD COUNT 2.66 MIL/MM3 (4.50-5.90); RED CELL DISTRIBUTION WIDTH 19.5 % (11.6-17.2); WHITE BLOOD COUNT 4.7 TH/MM3 (4.0-11.0)
[2016-12-15] MEDS: MESALAMINE 1000 MG SUPP RECTAL SCH (21:00)
[2016-12-15 21:09] LABS: BICARBONATE 21.5 MEQ/L (21.0-32.0); CALCIUM-PROTEIN CORRECTED 8.4 MG/DL (8.5-10.1); POTASSIUM 4.2 MEQ/L (3.5-5.1); TOTAL BILIRUBIN ADULT 0.4 MG/DL (0.2-1.0)
--- NOTE | 2016-12-15 22:12 | HHI.PR ---
Subjective Remarks Patient seen earlier at 1800 hrs. Patient states he feels freezing States her diarrhea has resolved Vital signs stable Objective Vitals Vital Signs Date Time Temp Pulse Resp B/P Pulse Ox O2 Delivery O2 Flow Rate FiO2 12/15/16 20:00 97.7 105 18 143/97 94 12/15/16 16:00 96.7 98 21 142/93 98 12/15/16 12:00 96.8 102 21 146/93 98 12/15/16 10:17 96 21 12/15/16 08:00 97.2 96 20 122/80 98 12/15/16 06:44 97.6 96 18 128/81 98 12/15/16 04:46 18 12/15/16 00:00 97.0 98 20 130/88 100 I/O 12/14/16 12/14/16 12/14/16 12/15/16 12/15/16 12/15/16 07:00 15:00 23:00 07:00 15:00 23:00 Intake Total 480 ml 360 ml Output Total 104 ml 475 ml 2200 ml 0 ml 625 ml Balance -104 ml -475 ml -1720 ml 0 ml -265 ml Intake Oral 480 ml 360 ml Output Urine Total 100 ml 475 ml 450 ml 0 ml 625 ml Stool Total 4 ml 1750 ml # Bowel Movements 2 4 2 3 Result Diagram: 12/15/16195212/15/161952 Imaging Last Impressions Chest X-Ray 12/14/16 0000 Signed Impressions: Service Date/Time: December 18:44 - CONCLUSION: Improved right lower lobe infiltrate. Kan Borges MD Head CT 12/02/16 0000 Signed Impressions: Service Date/Time: Friday, December 02, 2016 14:39 - CONCLUSION: No acute disease. Kan Altamirano MD Abdomen/Pelvis CT 11/28/16 0054 Signed Impressions: Service Date/Time: Monday, November 28, 2016 01:47 - CONCLUSION: Severe constipation. No acute CT findings. Kan Lyons MD Objective Remarks GENERAL: Critically ill, cachectic middle-aged male, lying in bed. Pale. HEENT: Sunken bitemporal bones. Atraumatic. Pupils equal, round and reactive. Mucous membranes are dry. NECK: Trachea is midline. There is no JVD. CHEST: Equal chest rise. Clear to auscultation. CARDIOVASCULAR: Regular rhythm. No appreciable murmurs. ABDOMEN: Small healed scar subxiphoid from prior PEG tube placement. Diffuse tenderness to palpation. There is no guarding. No hepatosplenomegaly. MUSCULOSKELETAL: Distal pulses 2+. No pitting Edema. NEUROLOGICAL: Alert, awake, oriented. Follows commands in all 4 extremities. Medications and IVs Current Medications Medications (Trade) Dose Ordered Sig/Abbi Route Start Time Stop Time Status Last Admin (Levophed-Dextrose Drip) 250 ml @ 0 mls/hr TITRATE IV 11/28/16 03:15 11/28/16 03:34 (D50w (Vial) Inj) 25 ml UNSCH PRN IV PUSH 11/28/16 04:30 Insulin Human Regular 1 1 Q6HR SQ 11/28/16 06:00 12/15/16 07:32 Lactated Ringer's 1,000 ml @ 60 mls/hr [id number] IV 11/28/16 04:21 11/28/16 05:15 (NS 1000 ml Inj) 1,000 ml @ 150 mls/hr Q6H40M IV 11/28/16 04:21 12/15/16 03:01 (NS Flush) 2 ml UNSCH PRN IV FLUSH 11/28/16 04:30 (NS Flush) 2 ml BID IV FLUSH 11/28/16 09:00 12/14/16 23:08 (Protonix Inj) 40 mg DAILY IV 11/28/16 09:00 12/15/16 08:06 (Zofran Inj) 4 mg Q6H PRN IV 11/28/16 04:30 (Heparin Inj) 5,000 units Q12H SQ 11/28/16 06:00 Hold 11/28/16 05:11 Miscellaneous Information 1 Q361D XX 11/28/16 04:30 (Chlorhexidine 2% Cloth) Taper DAILY@04 TOP 11/29/16 04:00 11/25/17 03:59 12/02/16 04:00 Chlorhexidine Gluconate 3 pack 3 pack UNSCH PRN TOP 11/28/16 04:30 (Flagyl 500 Mg Inj) 100 ml @ 100 mls/hr Q6H IV 11/28/16 10:00 12/15/16 17:38 ([place] 5-325 Mg) 1 tab Q4H PRN PO 11/28/16 17:30 12/15/16 12:23 (Dilaudid Pf Inj) 0.5 mg Q4H PRN IV PUSH 11/29/16 01:00 11/29/16 11:39 (Tums Chew) 500 mg Q2H PRN CHEW 12/01/16 11:00 (Lactinex) 1 tab Q12HR PO 12/01/16 14:00 12/15/16 08:04 (Canasa Supp) 1,000 mg HS RECTAL 12/04/16 21:00 12/11/16 20:29 (Diflucan) 200 mg DAILY PO 12/07/16 09:00 12/21/16 08:59 12/15/16 08:04 (Mycostatin Powder) 1 applic DAILY PRN TOPICAL 12/08/16 20:00 12/12/16 09:42 (Mycostatin Powder) 1 applic Q12HR TOPICAL 12/09/16 11:15 12/15/16 08:08 (Zinc Oxide 20% Oint) 1 applic UNSCH PRN TOPICAL 12/09/16 11:15 (Xifaxan) 550 mg BID PO 12/10/16 21:00 12/15/16 08:06 (Creon 24-76-120) 1 cap TID PO 12/10/16 18:00 12/15/16 17:38 ([place] [facility] [place]) 2 spray Q4H PRN EACH NARE 12/12/16 10:45 12/12/16 16:13 Potassium Phosphate 1000 mg 1,000 mg Q12HR PO 12/12/16 14:00 12/15/16 08:05 (Lr 1000 ml Inj) 1,000 ml @ 30 mls/hr Q24H IV 12/13/16 09:15 12/13/16 09:30 (Lomotil Tab) 1 tab Q6H PO 12/15/16 20:00 Urinary Catheter: No Vascular Central Line Catheter: No A/P Problem List: (1) Severe sepsis ICD Code: A41.9 Status: Resolved Plan: This is a 41-year-old male with a history of failure to thrive who presents with multiple acute and chronic medical problems including kidney injury, septic shock, diarrhea and possible colitis. The patient was very critically ill at the time of presentation and was admitted to the intensive care unit. GI and general surgery were consulted and are following. Unclear etiology, possible pneumonia due to infiltrate found on chest x-ray. Chest x-ray obtained on shows improved right lower lobe infiltrate. Sepsis syndrome improving with improved leukopenia, tachycardia still persistent heart rate in the 100s. Continue IV fluids, antibiotics as per ID. Flagyl discontinued on 12/15. Continue fluconazole. Send stool for parasite, AFB, CMV, fecal leukocytes and eosinophils. (2) Septic shock ICD Code: A41.9 Status: Acute Plan: Status post treatment with 4 L of IV fluid normal saline. Septic shock, resolved. Treated with IV fluids, empiric IV antibiotics. Continue antibiotics as per ID. The patient currently on by mouth fluconazole, patient previously on IV cefepime. (3) Metabolic encephalopathy ICD Code: G93.41 Status: Resolved Plan: Metabolic encephalopathy has been resolved. Likely secondary to sepsis. No resolve. Continue to monitor neurological status. (4) Diarrhea ICD Code: R19.7 Status: Resolved Plan: Patient is status post EGD colonoscopy on 11/29. GI and general surgery following. Status post flexible sigmoidoscopy with biopsy on 12/13/16 Follow-up biopsy. If everything is negative Diarrhea likely secondary to colitis which seems to be improving. Diarrhea now resolved. Continue with Lactobacillus acidophilus. Lomotil change to schedule in the post was needed as per GI. (5) FELICITAS (acute kidney injury) ICD Code: N17.9 Status: Resolved Plan: Result of Tamiflu administration. Continue to monitor BMP. (6) Hypothermia ICD Code: T68.XXXA Status: Acute Plan: A shunt with intermittent episodes of hypothermia. Status post aggressive warming with Bear hugger which is now off in the intensive care unit. Random cortisol 47 and likely to be adrenal insufficiency. (7) Hyperglycemia ICD Code: R73.9 Status: Acute Plan: Blood sugars are improving. Likely secondary to acute illness. Check hemoglobin A1c if not previously done. (8) Anemia ICD Code: D64.9 Status: Chronic Plan: Status post infusion of 1 unit of PRBCs in the intensive care unit. Hemoglobin seemed to be dropping down from 8.4-7.8-7.6 - 7.9. Idea to monitor hemoglobin and transfuse as needed for hemoglobin is 7 or symptomatic anemia. No active signs of bleeding. (9) Constipation ICD Code: K59.00 Status: Resolved Plan: Initially the patient presented with constipation and what seemed to be overflow diarrhea. Diarrhea improving. (10) Hypocalcemia ICD Code: E83.51 Status: Resolved Plan: Likely secondary to decreased oral intake. Potassium level slightly decreased protein, calcium 3.4. Repeat with IV calcium chloride and continue to monitor BMP. (11) Leukopenia ICD Code: D72.819 Status: Acute Plan: WBC initially trending down to 3.2. This likely secondary to sepsis and acute infection and illness. WBC today 4.7. Continue to monitor CBC with differential. Assessment and Plan Prophylaxis. PPI DVT prophylaxis. SCDs, no chemotherapy prophylaxis due to anemia. Problem Qualifiers (1) Diarrhea: Qualified Code: A09 - Diarrhea of presumed infectious origin (2) Anemia: Fredo Anaya MD Dec 15, 2016 22:12
[2016-12-15] MEDS: DIPHENOXYLATE/ATROPINE 2.5 MG/0.025 MG TAB PO SCH (23:01)
[2016-12-15] MEDS: LACTATED RINGER'S 1000 ML INJ 1,000 ML IV SCH (23:05)
[2016-12-16] VITALS: BP 134/78; PULSE 95; RESP 18; TEMP 97; O2SAT 96
[2016-12-16] MEDS: metroNIDAZOLE 500 MG INJ 100 ML IV SCH ×4 (03:05→21:57)
[2016-12-16] MEDS: DIPHENOXYLATE/ATROPINE 2.5 MG/0.025 MG TAB PO SCH ×4 (03:05→21:52)
[2016-12-16] MEDS: ACETAMINOPHEN/HYDROcodone 325 MG/5 MG TAB PO PRN ×5 (03:05→21:52)
[2016-12-16 04:00] VITALS: BP 149/92; PULSE 98; RESP 18; TEMP 97; O2SAT 99
[2016-12-16] MEDS: CHLORHEXIDINE GLUCONATE 2 % 1 PACK (2 CLOTHS) TOP SCH (04:00)
[2016-12-16] MEDS: INSULIN NovoLIN REGULAR SUPPLEMENTAL SCALE SQ SCH ×4 (06:00→15:50)
[2016-12-16] MEDS: LACTATED RINGER'S 1000 ML IV SCH (07:05)
[2016-12-16] MEDS: LACTATED RINGER'S 1000 ML INJ 1,000 ML IV SCH ×2 (07:05→17:15)
[2016-12-16 08:44] LABS: MEAN CELL VOLUME 85.8 FL (80.0-100.0); MEAN CORPUSCULAR HEMOGLOBIN 28.6 PG (27.0-34.0); MEAN CORPUSCULAR HGB CONC 33.3 % (32.0-36.0); PLATELET COUNT 268 TH/MM3 (150-450); RED BLOOD COUNT 2.68 MIL/MM3 (4.50-5.90); RED CELL DISTRIBUTION WIDTH 19.6 % (11.6-17.2); REVIEW FLAG FINAL; WHITE BLOOD COUNT 3.5 TH/MM3 (4.0-11.0)
[2016-12-16 08:56] VITALS: BP 139/88; PULSE 93; RESP 20; TEMP 96.9; O2SAT 99
[2016-12-16] MEDS: SODIUM CHLORIDE 0.9% FLUSH 5 ML FLUSH IV FLUSH SCH ×2 (09:00→21:53)
[2016-12-16] MEDS: NYSTATIN 100,000 U/GM PWD 15 GM BTL TOPICAL SCH ×2 (09:00→21:00)
[2016-12-16 09:13] LABS: ANION GAP 5 MEQ/L (5-15); BICARBONATE 24.1 MEQ/L (21.0-32.0); BLOOD UREA NITROGEN 4 MG/DL (7-18); CHLORIDE 111 MEQ/L (98-107); GLOMERULAR FILTRATION RATE 200 ML/MIN (>89); POTASSIUM 4.1 MEQ/L (3.5-5.1); SODIUM (NA) 140 MEQ/L (136-145)
[2016-12-16] MEDS: FLUCONAZOLE 200 MG TAB PO SCH (09:17)
[2016-12-16] MEDS: LIPASE/PROTEASE/AMYLASE (24,000/76,000/120,000) CAP PO SCH ×3 (09:17→17:15)
[2016-12-16] MEDS: LACTOBACILLUS ACIDOPHILUS TAB PO SCH ×2 (09:18→21:52)
[2016-12-16] MEDS: POTASSIUM PHOSPHATE MONOBASIC 500 MG TAB PO SCH ×2 (09:18→21:52)
[2016-12-16] MEDS: PANTOPRAZOLE SODIUM 40 MG VIAL IV SCH (09:19)
[2016-12-16] MEDS: RIFAXIMIN 550 MG TAB PO SCH ×2 (09:19→21:52)
[2016-12-16 09:27] LABS: CALCIUM-PROTEIN CORRECTED 8.3 MG/DL (8.5-10.1)
--- NOTE | 2016-12-16 11:36 | HHI.GIFU ---
Subjective Remarks Patient resting in bed ordering lunch, reports 2 loose stools a day, no bleeding , no abd pain, nausea or vomiting. (DimplejamesGuido) Objective Vitals I&O Vital Signs Date Time Temp Pulse Resp B/P Pulse Ox O2 Delivery O2 Flow Rate FiO2 12/16/16 08:56 96.9 93 20 139/88 99 12/16/16 05:16 19 12/16/16 04:00 97.0 98 18 149/92 99 12/16/16 00:00 97.0 95 18 134/78 96 12/15/16 20:00 97.7 105 18 143/97 94 12/15/16 16:00 96.7 98 21 142/93 98 12/15/16 12:00 96.8 102 21 146/93 98 I/O 12/15/16 12/15/16 12/15/16 12/16/16 12/16/16 12/16/16 07:00 15:00 23:00 07:00 15:00 23:00 Intake Total 360 ml 480 ml Output Total 0 ml 625 ml 2100 ml 200 ml Balance 0 ml -265 ml -2100 ml 280 ml Intake Oral 360 ml 480 ml Output Urine Total 0 ml 625 ml 2100 ml 200 ml # Bowel Movements 2 3 8 3 Laboratory Laboratory Tests Test 12/15/16 12/16/16 19:53 08:20 White Blood Count 4.7 3.5 Red Blood Count 2.66 2.68 Hemoglobin 7.9 7.7 Hematocrit 23.0 23.0 Mean Corpuscular Volume 86.3 85.8 Mean Corpuscular Hemoglobin 29.7 28.6 Mean Corpuscular Hemoglobin 34.4 33.3 Concent Red Cell Distribution Width 19.5 19.6 Platelet Count 291 268 Mean Platelet Volume 8.0 7.7 Neutrophils (%) (Auto) 62.1 Lymphocytes (%) (Auto) 24.4 Monocytes (%) (Auto) 10.0 Eosinophils (%) (Auto) 2.4 Basophils (%) (Auto) 1.1 Neutrophils # (Auto) 2.9 Lymphocytes # (Auto) 1.2 Monocytes # (Auto) 0.5 Eosinophils # (Auto) 0.1 Basophils # (Auto) 0.1 CBC Comment DIFF FINAL Differential Comment Sodium Level 145 140 Potassium Level 4.2 4.1 Chloride Level 117 111 Carbon Dioxide Level 21.5 24.1 Anion Gap 7 5 Blood Urea Nitrogen 4 4 Creatinine 0.55 0.46 Estimat Glomerular Filtration 163 200 Rate Random Glucose 120 148 Calcium Level 7.4 7.3 Protein Corrected Calcium 8.4 8.3 Total Bilirubin 0.4 Aspartate Amino Transf 13 (AST/SGOT) Alanine Aminotransferase 8 (ALT/SGPT) Alkaline Phosphatase 113 Total Protein 5.3 5.2 Albumin 2.0 Date/Time Procedure Status Source Growth 12/14/16 20:30 Cryptosporidium Exam Resulted Stool Stool Pending 12/14/16 20:30 Stool Pus (ANGELIQUE) - Final Resulted Stool Stool 12/14/16 20:30 Giardia Antigen (ANGELIQUE) Resulted Stool Stool Pending 12/14/16 20:30 Acid Fast Stain - Final Resulted Stool Stool NO ACID FAST BACILLI SEEN 12/14/16 20:30 Mycobacterial Culture Resulted Stool Stool Pending Imaging Last Impressions Chest X-Ray 12/14/16 0000 Signed Impressions: Service Date/Time: December 18:44 - CONCLUSION: Improved right lower lobe infiltrate. Kan Borges MD Head CT 12/02/16 0000 Signed Impressions: Service Date/Time: Friday, December 02, 2016 14:39 - CONCLUSION: No acute disease. Kan Altamirano MD Abdomen/Pelvis CT 11/28/16 0054 Signed Impressions: Service Date/Time: Monday, November 28, 2016 01:47 - CONCLUSION: Severe constipation. No acute CT findings. Kan Lyons MD Physical Exam HEENT: Cachexia, normocephalic; atraumatic; no jaundice. CHEST: CTA CARDIAC: RRR ABDOMEN: Soft, nondistended, nontender; no hepatosplenomegaly; bowel sounds are present in all four quadrants. EXTREMITIES: No clubbing, cyanosis, or edema. PIPE BUFFER: No focal deficits; alert and oriented ([employer]wi[employer]) Assessment and Plan Plan ASSESSMENT: - Abdominal pain more on RLQ, diarrhea ( negative for C-diff), stool cx negative. Abdomen/Pelvis CT (11/28/16)----> Severe constipation. No acute CT findings. S/P EGD/colonoscopy on (11/29/16) showed esophagitis, poor colonic prep, no signs of bleeding. Pathology acutely inflamed and markedly reactive ulcerated squamous mucosa with a small number budding yeast in the superficial squamous layers consistent with Claudia esophagitis. S/P Colonoscopy with 2 day prep (12/04/16)---> ulceration, colitis in descending sigmiod, rectum, s/p biopsies , retroflexed views medium internal hemorrhoids, internal hemorrhoids, external hemorrhoids. Pathology colonic mucosal biopsy without significant histopathologic abnormality malady negative for colitis and ulceration in the descending colon ulcer biopsy, sigmoid colon with mild acute nonspecific colitis, rectal biopsy with acute colitis exhibiting ischemic features S/P GS evaluation. Canasa Suppository. Pain has subsided, but was having persistent diarrhea and therefore had flexible sigmoidoscopy (12/13/16)---> mild colitis, probably nonspecific, pathology with colonic mucosa without significant histologic abnormality. Recommended to continue Canasa, Xifaxan, Creon, Canasa, Lactinex. Mag oxide po was discontinued. Lomotil was added, but patient forgets to ask for this. Slight improvement, but still having diarrhea. CDiff (-) on 12/08 esd negative. - Claudia esophagitis. PPI. Diflucan. - Constipation with ? overflow diarrhea. s/p SSE X 3, Dulcolax supp, senna. Now diarrhea - Anemia (normocytic, normochromic )- likely multifactorial. no bleeding , hgb stable - Failure to thrive/ wt loss- unknown etiology, patient states he has been eating, denies nausea or vomiting - Sepsis. IMPROVED, ID following. - AKF Resolved - Fibromyalgia/ HTN, CAD, DM per attending 12/16/16- patient doing much better, still with some loose stools about 2 BMs a day, no bleeding, he is on bowel regimen with improvement hgb stable. Plan: - JHONY - Cont. PPI - Diflucan 200mg mg po daily x 14 days - Canasa - Xifaxan - Creon - Lactinex - Lomotil - Cont. bowel regimen - Monitor HH - Transfuse as needed - Patient seen and examined by Dr. Wyatt and myself and this note is written on his behalf. (Guido Nevarez) Physician Comments Patient seen and examined Agree with above Continue with current supportive care Monitor labs (Ambrose Wyatt MD) Guido Nevarez Dec 16, 2016 11:36 Ambrose Wyatt MD Dec 16, 2016 16:31
[2016-12-16 13:13] VITALS: BP 143/94; PULSE 105; RESP 20; TEMP 97.7; O2SAT 100
--- NOTE | 2016-12-16 16:20 | HHI.PR ---
Subjective Remarks Follow-up for intractable diarrhea. Discussed with RN, patient with numerous episodes of diarrhea overnight and this morning. Patient seen with mother at bedside. Reports continued loose stools throughout the night and day today. Denies any abdominal pain today. Objective Vitals Vital Signs Date Time Temp Pulse Resp B/P Pulse Ox O2 Delivery O2 Flow Rate FiO2 12/16/16 13:13 97.7 105 20 143/94 100 12/16/16 08:56 96.9 93 20 139/88 99 12/16/16 05:16 19 12/16/16 04:00 97.0 98 18 149/92 99 12/16/16 00:00 97.0 95 18 134/78 96 12/15/16 20:00 97.7 105 18 143/97 94 I/O 12/15/16 12/15/16 12/15/16 12/16/16 12/16/16 12/16/16 07:00 15:00 23:00 07:00 15:00 23:00 Intake Total 360 ml 480 ml Output Total 0 ml 625 ml 2100 ml 725 ml Balance 0 ml -265 ml -2100 ml -245 ml Intake Oral 360 ml 480 ml Output Urine Total 0 ml 625 ml 2100 ml 725 ml # Bowel Movements 2 3 8 5 Result Diagram: 12/16/16 0820 12/16/16 0820 Imaging Last Impressions Chest X-Ray 12/14/16 0000 Signed Impressions: Service Date/Time: December 18:44 - CONCLUSION: Improved right lower lobe infiltrate. Kan Borges MD Head CT 12/02/16 0000 Signed Impressions: Service Date/Time: Friday, December 02, 2016 14:39 - CONCLUSION: No acute disease. Kan Altamirano MD Abdomen/Pelvis CT 11/28/16 0054 Signed Impressions: Service Date/Time: Monday, November 28, 2016 01:47 - CONCLUSION: Severe constipation. No acute CT findings. Kan Lyons MD Objective Remarks GENERAL: Well-developed cachectic chronically ill-appearing. In no acute distress. SKIN: Warm and dry. Skin pallor. HEENT: Normocephalic. Pupils equal and round. Mucous membranes pink and moist. CARDIOVASCULAR: Regular rate and rhythm. No murmur appreciated. RESPIRATORY: No accessory muscle use. Clear to auscultation. Breath sounds equal bilaterally. GASTROINTESTINAL: Abdomen soft, non-tender, nondistended. Hyperactive bowel sounds. MUSCULOSKELETAL: No obvious deformities. No clubbing or cyanosis. No edema. NEUROLOGICAL: Awake and alert. No focal neurological deficits. Moves upper and lower extremities spontaneously. Normal speech. PSYCHIATRIC: Appropriate mood and affect; insight and judgment normal. A/P Problem List: (1) Severe sepsis ICD Code: A41.9 Status: Resolved Plan: This is a 41-year-old male with a history of failure to thrive who presents with multiple acute and chronic medical problems including kidney injury, septic shock, diarrhea and possible colitis. The patient was very critically ill at the time of presentation and was admitted to the intensive care unit. GI and general surgery were consulted and are following. Unclear etiology, possible pneumonia due to infiltrate found on chest x-ray. Chest x-ray obtained on 12/14/16, shows improved right lower lobe infiltrate. Sepsis syndrome improving with improved leukopenia, tachycardia still persistent heart rate in the 100s. IVF. Antibiotics as per ID. Flagyl discontinued on 12/15. Continue fluconazole. Stool studies/cultures as below. (2) Metabolic encephalopathy ICD Code: G93.41 Status: Resolved Plan: Metabolic encephalopathy has been resolved. Likely secondary to sepsis. Continue to monitor neurological status. (3) Diarrhea ICD Code: R19.7 Status: Resolved Plan: Patient is status post EGD colonoscopy on 11/29. GI and general surgery following. Status post flexible sigmoidoscopy with biopsy on 12/13/16 Follow-up biopsy. Stool studies are for Cryptosporidium, Giardia, culture negative for enteric pathogens. Stool AFB negative, mycobacterial culture pending If everything is negative diarrhea likely secondary to colitis. Continue with Lactobacillus acidophilus, rifaximin, Lomotil. (4) FELICITAS (acute kidney injury) ICD Code: N17.9 Status: Resolved Plan: Improved. Continue to monitor BMP. (5) Hypothermia ICD Code: T68.XXXA Status: Acute Plan: Patient has intermittent episodes of hypothermia. Status post aggressive warming with Bear hugger. Random cortisol 47 and likely to be adrenal insufficiency. (6) Hyperglycemia ICD Code: R73.9 Status: Acute Plan: Blood sugars remained mildly elevated. Hemoglobin A1c pending. (7) Anemia ICD Code: D64.9 Status: Chronic Plan: Status post infusion of 3 units of PRBCs 11/28, 11/29, 11/30 Hemoglobin remains low, 7's-8's Continue to monitor hemoglobin and transfuse as needed for hemoglobin is 7 or symptomatic anemia. No active signs of bleeding. (8) Constipation ICD Code: K59.00 Status: Resolved Plan: Initially the patient presented with constipation and what seemed to be overflow diarrhea. Diarrhea as above. (9) Hypocalcemia ICD Code: E83.51 Status: Resolved Plan: Likely secondary to malnutrition. Protein corrected calcium is still low at 8.3 today. Give IV calcium. (10) Leukopenia ICD Code: D72.819 Status: Acute Plan: Intermittent episodes of decreased WBC count. This likely secondary to sepsis and acute infection and illness. Continue to monitor CBC with differential. Assessment and Plan Written by Tiago Vallejo, acting as scribe for Dr. Alcazar on 12/16/16 at 16:32. Discharge Planning Disposition pending clinical course. Attending Statement The documentation accurately reflects the work performed [id number] by me on 12/16/16 at 16:32. Problem Qualifiers (1) Diarrhea: Qualified Code: A09 - Diarrhea of presumed infectious origin (2) Anemia: Tiago Vallejo Dec 16, 2016 16:20 Fredo Anaya MD Dec 17, 2016 17:01
[2016-12-16] MEDS ORDERED: CALCIUM CHLORIDE INJ 2 GM in SODIUM CHLORIDE 0.9% INJ 100 ML IV ONE (17:00)
[2016-12-16 17:11] VITALS: BP 145/84; PULSE 92; RESP 20; TEMP 97.4; O2SAT 100
[2016-12-16 20:10] VITALS: BP 136/86; PULSE 110; RESP 22; TEMP 96.8; O2SAT 100
[2016-12-16] MEDS: MESALAMINE 1000 MG SUPP RECTAL SCH (21:53)
[2016-12-17 00:22] VITALS: BP 118/76; PULSE 110; RESP 22; TEMP 96.9; O2SAT 100
[2016-12-17] MEDS: DIPHENOXYLATE/ATROPINE 2.5 MG/0.025 MG TAB PO SCH ×4 (01:42→20:32)
[2016-12-17] MEDS: ACETAMINOPHEN/HYDROcodone 325 MG/5 MG TAB PO PRN ×5 (01:43→20:34)
[2016-12-17 03:53] LABS: CREATININE/MAG 24 HR 0.34 g/24 h (0.63-2.50)
[2016-12-17 04:00] VITALS: BP 129/78; PULSE 103; RESP 18; TEMP 96.9; O2SAT 100
[2016-12-17] MEDS: CHLORHEXIDINE GLUCONATE 2 % 1 PACK (2 CLOTHS) TOP SCH (04:00)
[2016-12-17] MEDS: LACTATED RINGER'S 1000 ML INJ 1,000 ML IV SCH ×2 (04:41→13:04)
[2016-12-17] MEDS: metroNIDAZOLE 500 MG INJ 100 ML IV SCH ×4 (04:41→22:29)
[2016-12-17] MEDS: INSULIN NovoLIN REGULAR SUPPLEMENTAL SCALE SQ SCH ×4 (06:28→17:09)
[2016-12-17 08:03] VITALS: BP 136/82; PULSE 102; RESP 20; TEMP 97.3; O2SAT 99
[2016-12-17] MEDS: RIFAXIMIN 550 MG TAB PO SCH ×2 (08:24→20:32)
[2016-12-17] MEDS: POTASSIUM PHOSPHATE MONOBASIC 500 MG TAB PO SCH ×2 (08:24→20:32)
[2016-12-17] MEDS: LACTOBACILLUS ACIDOPHILUS TAB PO SCH ×2 (08:24→22:29)
[2016-12-17] MEDS: FLUCONAZOLE 200 MG TAB PO SCH (08:25)
[2016-12-17] MEDS: PANTOPRAZOLE SODIUM 40 MG VIAL IV SCH (08:25)
[2016-12-17] MEDS: NYSTATIN 100,000 U/GM PWD 15 GM BTL TOPICAL SCH ×2 (08:26→20:34)
[2016-12-17] MEDS: SODIUM CHLORIDE 0.9% FLUSH 5 ML FLUSH IV FLUSH SCH ×2 (08:27→20:34)
[2016-12-17] MEDS: LACTATED RINGER'S 1000 ML IV SCH (08:27)
[2016-12-17] MEDS: LIPASE/PROTEASE/AMYLASE (24,000/76,000/120,000) CAP PO SCH ×3 (09:00→16:44)
[2016-12-17 09:54] LABS: HEMOGLOBIN A1a 1.2 %; HEMOGLOBIN A1b 1.9 %; HEMOGLOBIN Ao 83.9 %; HEMOGLOBIN LA1C 2.4 %
[2016-12-17 11:54] VITALS: BP 138/86; PULSE 14; RESP 20; TEMP 98.6; O2SAT 100
[2016-12-17] MEDS: CHOLESTYRAMINE 4 GM PACKET PO SCH (15:15)
[2016-12-17 15:54] VITALS: BP 145/92; PULSE 106; RESP 20; TEMP 99.4; O2SAT 99
--- NOTE | 2016-12-17 17:01 | HHI.PR ---
Subjective Remarks As per RN and patient diarrhea much improved - had only one episode of very small amount of loose stool denies fevers and chills states that he is coughing Patient still tachycardic Objective Vitals Vital Signs Date Time Temp Pulse Resp B/P Pulse Ox O2 Delivery O2 Flow Rate FiO2 12/17/16 15:54 99.4 106 20 145/92 99 12/17/16 11:54 98.6 14 20 138/86 100 12/17/16 08:03 97.3 102 20 136/82 99 12/17/16 04:00 96.9 103 18 129/78 100 12/17/16 00:22 96.9 110 22 118/76 100 12/16/16 20:10 96.8 110 22 136/86 100 12/16/16 17:11 97.4 92 20 145/84 100 I/O 12/16/16 12/16/16 12/16/16 12/17/16 12/17/16 12/17/16 07:00 15:00 23:00 07:00 15:00 23:00 Intake Total 480 ml 480 ml 1279 ml Output Total 2100 ml 725 ml 350 ml 900 ml 825 ml 125 ml Balance -2100 ml -245 ml 130 ml 379 ml -825 ml -125 ml Intake Oral 480 ml 480 ml 480 ml IV Total 799 ml Output Urine Total 2100 ml 725 ml 350 ml 900 ml 825 ml 125 ml # Bowel Movements 8 5 3 6 1 2 Result Diagram: 12/16/16 0820 12/16/16 0820 Imaging Last Impressions Chest X-Ray 12/14/16 0000 Signed Impressions: Service Date/Time: December 18:44 - CONCLUSION: Improved right lower lobe infiltrate. Kan Borges MD Head CT 12/02/16 0000 Signed Impressions: Service Date/Time: Friday, December 02, 2016 14:39 - CONCLUSION: No acute disease. Kan Altamirano MD Abdomen/Pelvis CT 11/28/16 0054 Signed Impressions: Service Date/Time: Monday, November 28, 2016 01:47 - CONCLUSION: Severe constipation. No acute CT findings. Kan Lyons MD Objective Remarks GENERAL: Critically ill, cachectic middle-aged male, lying in bed. Pale. HEENT: Sunken bitemporal bones. Atraumatic. Pupils equal, round and reactive. Mucous membranes are dry. NECK: Trachea is midline. There is no JVD. CHEST: Equal chest rise. Clear to auscultation. CARDIOVASCULAR: Regular rhythm. No appreciable murmurs. ABDOMEN: Small healed scar subxiphoid from prior PEG tube placement. Diffuse tenderness to palpation. There is no guarding. No hepatosplenomegaly. MUSCULOSKELETAL: Distal pulses 2+. No pitting Edema. NEUROLOGICAL: Alert, awake, oriented. Follows commands in all 4 extremities. Medications and IVs Current Medications Medications (Trade) Dose Ordered Sig/Abbi Route Start Time Stop Time Status Last Admin (Levophed-Dextrose Drip) 250 ml @ 0 mls/hr TITRATE IV 11/28/16 03:15 11/28/16 03:34 (D50w (Vial) Inj) 25 ml UNSCH PRN IV PUSH 11/28/16 04:30 (NovoLIN R SUPPLEMENTAL SCALE) 1 Q6HR SQ 11/28/16 06:00 12/17/16 12:00 (NS Flush) 2 ml UNSCH PRN IV FLUSH 11/28/16 04:30 (NS Flush) 2 ml BID IV FLUSH 11/28/16 09:00 12/16/16 21:53 (Protonix Inj) 40 mg DAILY IV 11/28/16 09:00 12/17/16 08:25 (Zofran Inj) 4 mg Q6H PRN IV 11/28/16 04:30 (Heparin Inj) 5,000 units Q12H SQ 11/28/16 06:00 Hold 11/28/16 05:11 Miscellaneous Information 1 Q361D XX 11/28/16 04:30 (Chlorhexidine 2% Cloth) Taper DAILY@04 TOP 11/29/16 04:00 11/25/17 03:59 12/02/16 04:00 Chlorhexidine Gluconate 3 pack 3 pack UNSCH PRN TOP 11/28/16 04:30 (Flagyl 500 Mg Inj) 100 ml @ 100 mls/hr Q6H IV 11/28/16 10:00 12/17/16 15:42 (Buckley 5-325 Mg) 1 tab Q4H PRN PO 11/28/16 17:30 12/17/16 16:30 (Dilaudid Pf Inj) 0.5 mg Q4H PRN IV PUSH 11/29/16 01:00 11/29/16 11:39 (Tums Chew) 500 mg Q2H PRN CHEW 12/01/16 11:00 (Canasa Supp) 1,000 mg HS RECTAL 12/04/16 21:00 12/16/16 21:53 (Diflucan) 200 mg DAILY PO 12/07/16 09:00 12/21/16 08:59 12/17/16 08:25 (Mycostatin Powder) 1 applic DAILY PRN TOPICAL 12/08/16 20:00 12/12/16 09:42 (Mycostatin Powder) 1 applic Q12HR TOPICAL 12/09/16 11:15 12/17/16 08:26 (Zinc Oxide 20% Oint) 1 applic UNSCH PRN TOPICAL 12/09/16 11:15 (Xifaxan) 550 mg BID PO 12/10/16 21:00 12/17/16 08:24 (Creon 24-76-120) 1 cap TID PO 12/10/16 18:00 12/17/16 16:44 ([place]) 2 spray Q4H PRN EACH NARE 12/12/16 10:45 12/12/16 16:13 Potassium Phosphate 1000 mg 1,000 mg Q12HR PO 12/12/16 14:00 12/17/16 08:24 (Lr 1000 ml Inj) 1,000 ml @ 30 mls/hr Q24H IV 12/13/16 09:15 12/17/16 08:27 Diphenoxylate HCl/ Atropine 1 tab 1 tab Q6H PO 12/15/16 20:00 12/17/16 13:04 (Lr 1000 ml Inj) 1,000 ml @ 100 mls/hr Q10H IV 12/15/16 22:00 12/17/16 13:04 (Lactinex) 1 tab Q8HR PO 12/17/16 22:00 (Questran 4 Gm Pkt) 4 gm DAILY PO 12/17/16 15:15 12/17/16 15:15 Urinary Catheter: No Vascular Central Line Catheter: No A/P Problem List: (1) Severe sepsis ICD Code: A41.9 Status: Resolved (2) Metabolic encephalopathy ICD Code: G93.41 Status: Resolved (3) Diarrhea ICD Code: R19.7 Status: Resolved (4) FELICITAS (acute kidney injury) ICD Code: N17.9 Status: Resolved (5) Hypothermia ICD Code: T68.XXXA Status: Acute (6) Hyperglycemia ICD Code: R73.9 Status: Acute (7) Anemia ICD Code: D64.9 Status: Chronic (8) Constipation ICD Code: K59.00 Status: Resolved (9) Hypocalcemia ICD Code: E83.51 Status: Resolved (10) Leukopenia ICD Code: D72.819 Status: Acute Assessment and Plan (1) Severe sepsis Plan: This is a 41-year-old male with a history of failure to thrive who presents with multiple acute and chronic medical problems including kidney injury, septic shock, diarrhea and possible colitis. The patient was very critically ill at the time of presentation and was admitted to the intensive care unit. GI and general surgery were consulted and are following. Unclear etiology, possible pneumonia due to infiltrate found on chest x-ray. Chest x-ray obtained on 12/14/16, shows improved right lower lobe infiltrate. Sepsis syndrome improving with improved leukopenia, tachycardia still persistent heart rate in the 100s. IVF. Antibiotics as per ID. Flagyl discontinued on 12/15. Continue fluconazole. Stool studies/cultures as below. (2) Metabolic encephalopathy Plan: Metabolic encephalopathy has been resolved. Likely secondary to sepsis. Continue to monitor neurological status. (3) Diarrhea Plan: Patient is status post EGD colonoscopy on 11/29. GI and general surgery following. Status post flexible sigmoidoscopy with biopsy on 12/13/16 Follow-up biopsy. Stool studies are for Cryptosporidium, Giardia, culture negative for enteric pathogens. Stool AFB negative, mycobacterial culture pending If everything is negative diarrhea likely secondary to colitis. Continue with Lactobacillus acidophilus, rifaximin, Lomotil. (4) FELICITAS (acute kidney injury) Plan: Improved. Continue to monitor BMP. (5) Hypothermia Plan: Patient has intermittent episodes of hypothermia. Status post aggressive warming with Bear hugger. Random cortisol 47 and likely to be adrenal insufficiency. (6) Hyperglycemia Plan: Blood sugars remained mildly elevated. Hemoglobin A1c pending. 12/17 blood sugars trending up. Patient is a known diabetic with diabetes type 2 which is controlled with a hemoglobin A1c of 6.2. I will place the patient on SSI with insulin NovoLog and monitor Accu-Cheks. (7) Anemia Plan: Status post infusion of 3 units of PRBCs 11/28, 11/29, 11/30 Hemoglobin remains low, 7's-8's Continue to monitor hemoglobin and transfuse as needed for hemoglobin is 7 or symptomatic anemia. No active signs of bleeding. (8) Constipation Plan: Initially the patient presented with constipation and what seemed to be overflow diarrhea. Diarrhea as above. (9) Hypocalcemia Plan: Likely secondary to malnutrition. Protein corrected calcium is still low at 8.3 today. Give IV calcium. / monitor BMP. (10) Leukopenia Plan: Intermittent episodes of decreased WBC count. This likely secondary to sepsis and acute infection and illness. Continue to monitor CBC with differential. Prophylaxis. PPI DVT prophylaxis. SCDs, no chemotherapy prophylaxis due to anemia. Problem Qualifiers (1) Diarrhea: Qualified Code: A09 - Diarrhea of presumed infectious origin (2) Anemia: Fredo Anaya MD Dec 17, 2016 17:01
[2016-12-17] MEDS ORDERED: GLUCAGON 1 MG/ML VIAL OTHER PRN (17:30)
[2016-12-17] MEDS ORDERED: DEXTROSE 50% IN WATER 50 ML VIAL(D50) IV PUSH PRN (17:30)
[2016-12-17 20:00] VITALS: BP 140/87; PULSE 105; RESP 20; TEMP 96.9; O2SAT 95
[2016-12-17] MEDS: MESALAMINE 1000 MG SUPP RECTAL SCH (20:33)
[2016-12-17] MEDS: INSULIN ASPART SUPPLEMENTAL SCALE SQ SCH (21:00)
[2016-12-18] VITALS: BP 137/81; PULSE 101; RESP 20; TEMP 97; O2SAT 98
[2016-12-18] MEDS: DIPHENOXYLATE/ATROPINE 2.5 MG/0.025 MG TAB PO SCH ×4 (01:51→20:20)
[2016-12-18] MEDS: LACTATED RINGER'S 1000 ML INJ 1,000 ML IV SCH ×2 (01:52→09:06)
[2016-12-18 04:00] VITALS: BP 126/89; PULSE 97; RESP 18; TEMP 98.2; O2SAT 98
[2016-12-18] MEDS: CHLORHEXIDINE GLUCONATE 2 % 1 PACK (2 CLOTHS) TOP SCH (04:00)
[2016-12-18] MEDS: ACETAMINOPHEN/HYDROcodone 325 MG/5 MG TAB PO PRN ×5 (04:25→22:28)
[2016-12-18] MEDS: metroNIDAZOLE 500 MG INJ 100 ML IV SCH ×4 (04:25→23:46)
[2016-12-18] MEDS: LACTOBACILLUS ACIDOPHILUS TAB PO SCH ×3 (05:08→22:27)
[2016-12-18] MEDS: INSULIN ASPART SUPPLEMENTAL SCALE SQ SCH ×4 (06:39→20:25)
[2016-12-18 08:00] VITALS: BP 133/88; PULSE 100; RESP 20; TEMP 98.2; O2SAT 100
[2016-12-18 08:05] LABS: AUTOMATED NEUTROPHIL # 1.6 TH/MM3 (1.8-7.7); BASOPHIL # 0.1 TH/MM3 (0-0.2); BASOPHIL % 2.2 % (0.0-2.0); EOSINOPHIL # 0.1 TH/MM3 (0-0.4); EOSINOPHIL % 3.7 % (0.0-4.0); HEMATOCRIT 22.5 % (39.0-51.0); HEMO FLAGS DIFF FINAL; LYMPH % 36.9 % (9.0-44.0); LYMPHOCYTE # 1.3 TH/MM3 (1.0-4.8); MEAN CELL VOLUME 85.7 FL (80.0-100.0); MEAN CORPUSCULAR HEMOGLOBIN 29.9 PG (27.0-34.0); MEAN CORPUSCULAR HGB CONC 34.9 % (32.0-36.0); MONO % 11.9 % (0.0-8.0); NEUT % 45.3 % (16.0-70.0); PLATELET COUNT 233 TH/MM3 (150-450); RED BLOOD COUNT 2.62 MIL/MM3 (4.50-5.90); RED CELL DISTRIBUTION WIDTH 22.1 % (11.6-17.2); WHITE BLOOD COUNT 3.6 TH/MM3 (4.0-11.0)
[2016-12-18 08:31] LABS: ANION GAP 8 MEQ/L (5-15); AST (GOT) 11 U/L (15-37); BICARBONATE 23.2 MEQ/L (21.0-32.0); BLOOD UREA NITROGEN 4 MG/DL (7-18); CHLORIDE 111 MEQ/L (98-107); GLOMERULAR FILTRATION RATE 195 ML/MIN (>89); POTASSIUM 4.3 MEQ/L (3.5-5.1); SODIUM (NA) 142 MEQ/L (136-145)
[2016-12-18 08:33] LABS: ALKALINE PHOSPHATASE 104 U/L (45-117); ALT (GPT) 10 U/L (12-78); TOTAL BILIRUBIN ADULT 0.5 MG/DL (0.2-1.0)
[2016-12-18] MEDS: CHOLESTYRAMINE 4 GM PACKET PO SCH (09:00)
[2016-12-18] MEDS: PANTOPRAZOLE SODIUM 40 MG VIAL IV SCH (09:01)
[2016-12-18] MEDS: POTASSIUM PHOSPHATE MONOBASIC 500 MG TAB PO SCH ×2 (09:01→20:18)
[2016-12-18] MEDS: FLUCONAZOLE 200 MG TAB PO SCH (09:01)
[2016-12-18] MEDS: LIPASE/PROTEASE/AMYLASE (24,000/76,000/120,000) CAP PO SCH ×3 (09:01→17:25)
[2016-12-18] MEDS: RIFAXIMIN 550 MG TAB PO SCH ×2 (09:01→20:18)
[2016-12-18] MEDS: SODIUM CHLORIDE 0.9% FLUSH 5 ML FLUSH IV FLUSH SCH ×2 (09:02→20:23)
[2016-12-18] MEDS: NYSTATIN 100,000 U/GM PWD 15 GM BTL TOPICAL SCH ×2 (09:04→21:00)
[2016-12-18] MEDS: LACTATED RINGER'S 1000 ML IV SCH (09:05)
[2016-12-18 12:00] VITALS: BP 123/84; PULSE 87; RESP 18; TEMP 99; O2SAT 99
[2016-12-18 14:00] VITALS: BP 121/89; PULSE 85; RESP 17; TEMP 97.9; O2SAT 99
[2016-12-18] MEDS ORDERED: MAGNESIUM SULFATE 4 GM PREMIX 100 ML IV ONE (17:30)
[2016-12-18] MEDS ORDERED: POTASSIUM PHOSPHATE MONOBASIC 500 MG TAB PO ONE (17:30)
--- NOTE | 2016-12-18 17:30 | HHI.PR ---
Subjective Remarks Patient says she feesl cold. he is eating well. Still with diarrhea. Rash is improving. No n/v. Electrolytes low, replaced. Objective Vitals Vital Signs Date Time Temp Pulse Resp B/P Pulse Ox O2 Delivery O2 Flow Rate FiO2 12/18/16 12:00 99.0 87 18 123/84 99 12/18/16 08:00 98.2 100 20 133/88 100 12/18/16 04:00 98.2 97 18 126/89 98 12/18/16 00:00 97.0 101 20 137/81 98 12/17/16 20:00 96.9 105 20 140/87 95 I/O 12/17/16 12/17/16 12/17/16 12/18/16 12/18/16 12/18/16 07:00 15:00 23:00 07:00 15:00 23:00 Intake Total 1279 ml 2062 ml 240 ml Output Total 900 ml 825 ml 900 ml 1351 ml Balance 379 ml -825 ml 1162 ml -1111 ml Intake Oral 480 ml 640 ml 240 ml IV Total 799 ml 1422 ml Output Urine Total 900 ml 825 ml 900 ml 1350 ml Stool Total 1 ml # Bowel Movements 6 1 4 3 Result Diagram: 12/18/16 0740 12/18/16 0740 Imaging Last Impressions Chest X-Ray 12/14/16 0000 Signed Impressions: Service Date/Time: December 18:44 - CONCLUSION: Improved right lower lobe infiltrate. Kan Borges MD Head CT 12/02/16 0000 Signed Impressions: Service Date/Time: Friday, December 02, 2016 14:39 - CONCLUSION: No acute disease. Kan Altamirano MD Abdomen/Pelvis CT 11/28/16 0054 Signed Impressions: Service Date/Time: Monday, November 28, 2016 01:47 - CONCLUSION: Severe constipation. No acute CT findings. Kan Lyons MD Objective Remarks GENERAL: Critically ill, cachectic middle-aged male, lying in bed. Pale. HEENT: Sunken bitemporal bones. Atraumatic. Pupils equal, round and reactive. Mucous membranes are dry. NECK: Trachea is midline. There is no JVD. CHEST: Equal chest rise. Clear to auscultation. CARDIOVASCULAR: Regular rhythm. No appreciable murmurs. ABDOMEN: Small healed scar subxiphoid from prior PEG tube placement. Diffuse tenderness to palpation. There is no guarding. No hepatosplenomegaly. MUSCULOSKELETAL: Distal pulses 2+. No pitting Edema. NEUROLOGICAL: Alert, awake, oriented. Follows commands in all 4 extremities. A/P Problem List: (1) Severe sepsis ICD Code: A41.9 Status: Resolved (2) Metabolic encephalopathy ICD Code: G93.41 Status: Resolved (3) Diarrhea ICD Code: R19.7 Status: Resolved (4) FELICITAS (acute kidney injury) ICD Code: N17.9 Status: Resolved (5) Hypothermia ICD Code: T68.XXXA Status: Acute (6) Hyperglycemia ICD Code: R73.9 Status: Acute (7) Anemia ICD Code: D64.9 Status: Chronic (8) Constipation ICD Code: K59.00 Status: Resolved (9) Hypocalcemia ICD Code: E83.51 Status: Resolved (10) Leukopenia ICD Code: D72.819 Status: Acute Assessment and Plan Assessment: This is a 41-year-old male with a history of failure to thrive who presents with multiple acute on chronic medical problems including kidney injury , septic shock, diarrhea, possible colitis. He is very critically ill this time , and descending obstruction has to be ruled out. We will admit him to the ICU and monitor him carefully. We will empirically cover him with antibiotics and await culture data. GI, general surgery and ID following (1) Severe sepsis Plan: This is a 41-year-old male with a history of failure to thrive who presents with multiple acute and chronic medical problems including kidney injury, septic shock, diarrhea and possible colitis. The patient was very critically ill at the time of presentation and was admitted to the intensive care unit. GI and general surgery were consulted and are following. Unclear etiology, possible pneumonia due to infiltrate found on chest x-ray. Chest x-ray obtained on 12/14/16, shows improved right lower lobe infiltrate. Sepsis syndrome improving with improved leukopenia, tachycardia still persistent heart rate in the 100s. IVF. Antibiotics as per ID. Flagyl discontinued on 12/15. Continue fluconazole. Stool studies/cultures as below. (2) Metabolic encephalopathy Plan: Metabolic encephalopathy has been resolved. Likely secondary to sepsis. Continue to monitor neurological status. (3) Diarrhea Plan: Patient is status post EGD colonoscopy on 11/29. GI and general surgery following. Status post flexible sigmoidoscopy with biopsy on 12/13/16 Follow-up biopsy. Stool studies are for Cryptosporidium, Giardia, culture negative for enteric pathogens. Stool AFB negative, mycobacterial culture pending If everything is negative diarrhea likely secondary to colitis. Continue with Lactobacillus acidophilus, rifaximin, Lomotil. (4) FELICITAS (acute kidney injury) Plan: Improved. Continue to monitor BMP. (5) Hypothermia Plan: Patient has intermittent episodes of hypothermia. Status post aggressive warming with Bear hugger. Random cortisol 47 and likely to be adrenal insufficiency. (6) Hyperglycemia Plan: Blood sugars remained mildly elevated. Hemoglobin A1c pending. 12/17 blood sugars trending up. Patient is a known diabetic with diabetes type 2 which is controlled with a hemoglobin A1c of 6.2. I will place the patient on SSI with insulin NovoLog and monitor Accu-Cheks. (7) Anemia Plan: Status post infusion of 3 units of PRBCs 11/28, 11/29, 11/30 Hemoglobin remains low, 7's-8's Continue to monitor hemoglobin and transfuse as needed for hemoglobin is 7 or symptomatic anemia. No active signs of bleeding. (8) Constipation Plan: Initially the patient presented with constipation and what seemed to be overflow diarrhea. Diarrhea as above. (9) Hypocalcemia Hypomagnesemia Hypophosphatemia Severe protein calorie malnutrition Refeeding sdr Plan: Likely secondary to malnutrition. Protein corrected calcium low at 8.3, received IV calcium. Monitor lytes and continue to replace. Replace mag by IV 11/17 12/18 monitor electrolytes Sk[employer] U[employer]ings also following (10) Leukopenia Plan: Intermittent episodes of decreased WBC count. This likely secondary to sepsis and acute infection and illness. Continue to monitor CBC with differential. Prophylaxis. PPI DVT prophylaxis. SCDs, no chemotherapy prophylaxis due to anemia. Problem Qualifiers (1) Diarrhea: Qualified Code: A09 - Diarrhea of presumed infectious origin (2) Anemia: Mary Chiang MD Dec 18, 2016 17:30
[2016-12-18] MEDS: MAGNESIUM SULFATE 1 GM PREMIX 100 ML IV SCH ×3 (18:52→22:27)
[2016-12-18 20:15] VITALS: BP 129/85; PULSE 102; RESP 17; TEMP 97.9; O2SAT 97
[2016-12-18] MEDS: CALCIUM CARBONATE 500 MG CHEWABLE TAB CHEW SCH (20:17)
[2016-12-18] MEDS: MESALAMINE 1000 MG SUPP RECTAL SCH (20:20)
[2016-12-18] MEDS: RESP: ALBUTEROL 2.5 MG/IPRATROPIUM 0.5 MG NEB (PRN) INH (23:52)
[2016-12-19] VITALS (7 sets, daily range): BP systolic 118–140; BP diastolic 69–85; PULSE 78–113; RESP 17–21; TEMP 97.6–99.3; O2SAT 97–100
[2016-12-19] MEDS: MAGNESIUM SULFATE 1 GM PREMIX 100 ML IV SCH (00:43)
[2016-12-19] MEDS: DIPHENOXYLATE/ATROPINE 2.5 MG/0.025 MG TAB PO SCH ×4 (02:05→20:00)
[2016-12-19] MEDS: CHLORHEXIDINE GLUCONATE 2 % 1 PACK (2 CLOTHS) TOP SCH (04:00)
[2016-12-19] MEDS: LACTATED RINGER'S 1000 ML INJ 1,000 ML IV SCH ×3 (05:07→17:54)
[2016-12-19] MEDS: metroNIDAZOLE 500 MG INJ 100 ML IV SCH ×4 (05:07→22:20)
[2016-12-19] MEDS: LACTOBACILLUS ACIDOPHILUS TAB PO SCH ×3 (05:07→22:21)
[2016-12-19] MEDS: INSULIN ASPART SUPPLEMENTAL SCALE SQ SCH ×3 (06:15→21:00)
[2016-12-19] MEDS: SODIUM CHLORIDE 0.9% FLUSH 5 ML FLUSH IV FLUSH SCH ×2 (09:00→21:00)
[2016-12-19] MEDS: NYSTATIN 100,000 U/GM PWD 15 GM BTL TOPICAL SCH ×2 (09:00→21:00)
[2016-12-19] MEDS: POTASSIUM PHOSPHATE MONOBASIC 500 MG TAB PO SCH ×2 (09:28→22:20)
[2016-12-19] MEDS: PANTOPRAZOLE SODIUM 40 MG VIAL IV SCH (09:28)
[2016-12-19] MEDS: LIPASE/PROTEASE/AMYLASE (24,000/76,000/120,000) CAP PO SCH ×3 (09:29→17:54)
[2016-12-19] MEDS: CALCIUM CARBONATE 500 MG CHEWABLE TAB CHEW SCH ×2 (09:29→22:21)
[2016-12-19] MEDS: ACETAMINOPHEN/HYDROcodone 325 MG/5 MG TAB PO PRN ×4 (09:29→22:23)
[2016-12-19] MEDS: FLUCONAZOLE 200 MG TAB PO SCH (09:30)
[2016-12-19] MEDS: RIFAXIMIN 550 MG TAB PO SCH ×2 (09:30→22:20)
[2016-12-19] MEDS: CHOLESTYRAMINE 4 GM PACKET PO SCH (09:30)
--- NOTE | 2016-12-19 16:42 | HHI.PR ---
Subjective Remarks The patient was seen earlier today. Had one episode of diarrhea in the morning. Says he feels better today. No nausea or vomiting. Able to eat.. Rash improving. Objective Vitals Vital Signs Date Time Temp Pulse Resp B/P Pulse Ox O2 Delivery O2 Flow Rate FiO2 12/19/16 14:00 98.8 108 21 123/78 100 12/19/16 12:12 99.3 78 20 140/83 98 12/19/16 08:00 98.8 93 21 120/79 98 12/19/16 05:26 97.6 113 17 118/69 98 12/19/16 00:43 97.8 107 17 121/75 99 12/18/16 20:15 97.9 102 17 129/85 97 I/O 12/18/16 12/18/16 12/18/16 12/19/16 12/19/16 12/19/16 07:00 15:00 23:00 07:00 15:00 23:00 Intake Total 240 ml 625 ml 720 ml Output Total 1351 ml 800 ml 1150 ml 1200 ml Balance -1111 ml -800 ml 625 ml -430 ml -1200 ml Intake Oral 240 ml 625 ml 720 ml Output Urine Total 1350 ml 800 ml 1150 ml 1200 ml Stool Total 1 ml # Bowel Movements 3 3 7 5 5 Result Diagram: 12/18/1640 12/18/16 07 Objective Remarks GENERAL: Critically ill, cachectic middle-aged male, lying in bed. Pale. HEENT: Sunken bitemporal bones. Atraumatic. Pupils equal, round and reactive. Mucous membranes are dry. NECK: Trachea is midline. There is no JVD. CHEST: Equal chest rise. Clear to auscultation. CARDIOVASCULAR: Regular rhythm. No appreciable murmurs. ABDOMEN: Small healed scar subxiphoid from prior PEG tube placement. Diffuse tenderness to palpation. There is no guarding. No hepatosplenomegaly. MUSCULOSKELETAL: Distal pulses 2+. No pitting Edema. NEUROLOGICAL: Alert, awake, oriented. Follows commands in all 4 extremities. A/P Problem List: (1) Severe sepsis ICD Code: A41.9 Status: Resolved (2) Metabolic encephalopathy ICD Code: G93.41 Status: Resolved (3) Diarrhea ICD Code: R19.7 Status: Resolved (4) FELICITAS (acute kidney injury) ICD Code: N17.9 Status: Resolved (5) Hypothermia ICD Code: T68.XXXA Status: Acute (6) Hyperglycemia ICD Code: R73.9 Status: Acute (7) Anemia ICD Code: D64.9 Status: Chronic (8) Constipation ICD Code: K59.00 Status: Resolved (9) Hypocalcemia ICD Code: E83.51 Status: Resolved (10) Leukopenia ICD Code: D72.819 Status: Acute Assessment and Plan Assessment: This is a 41-year-old male with a history of failure to thrive who presents with multiple acute on chronic medical problems including kidney injury , septic shock, diarrhea, possible colitis. He is very critically ill this time , and descending obstruction has to be ruled out. We will admit him to the ICU and monitor him carefully. We will empirically cover him with antibiotics and await culture data. GI, general surgery and ID following (1) Severe sepsis Plan: This is a 41-year-old male with a history of failure to thrive who presents with multiple acute and chronic medical problems including kidney injury, septic shock, diarrhea and possible colitis. The patient was very critically ill at the time of presentation and was admitted to the intensive care unit. GI and general surgery were consulted and are following. Unclear etiology, possible pneumonia due to infiltrate found on chest x-ray. Chest x-ray obtained on 12/14/16, shows improved right lower lobe infiltrate. Sepsis syndrome improving with improved leukopenia, tachycardia still persistent heart rate in the 100s. IVF. Antibiotics as per ID. Flagyl discontinued on 12/15. Continue fluconazole. Stool studies/cultures as below. (2) Metabolic encephalopathy Plan: Metabolic encephalopathy has been resolved. Likely secondary to sepsis. Continue to monitor neurological status. (3) Diarrhea Plan: Patient is status post EGD colonoscopy on 11/29. GI and general surgery following. Status post flexible sigmoidoscopy with biopsy on 12/13/16 Follow-up biopsy. Stool studies are for Cryptosporidium, Giardia, culture negative for enteric pathogens. Stool AFB negative, mycobacterial culture pending If everything is negative diarrhea likely secondary to colitis. Continue with Lactobacillus acidophilus, rifaximin, Lomotil. (4) FELICITAS (acute kidney injury) Plan: Improved. Continue to monitor BMP. (5) Hypothermia Plan: Patient has intermittent episodes of hypothermia. Status post aggressive warming with Bear hugger. Random cortisol 47 and likely to be adrenal insufficiency. (6) Hyperglycemia Plan: Blood sugars remained mildly elevated. Hemoglobin A1c pending. 12/17 blood sugars trending up. Patient is a known diabetic with diabetes type 2 which is controlled with a hemoglobin A1c of 6.2. I will place the patient on SSI with insulin NovoLog and monitor Accu-Cheks. (7) Anemia Plan: Status post infusion of 3 units of PRBCs 11/28, 11/29, 11/30 Hemoglobin remains low, 7's-8's Continue to monitor hemoglobin and transfuse as needed for hemoglobin is 7 or symptomatic anemia. No active signs of bleeding. (8) Constipation Plan: Initially the patient presented with constipation and what seemed to be overflow diarrhea. Diarrhea as above. (9) Hypocalcemia Hypomagnesemia Hypophosphatemia Severe protein calorie malnutrition Refeeding sdr Plan: Likely secondary to malnutrition. Protein corrected calcium low at 8.3, received IV calcium. Monitor lytes and continue to replace. Replace mag by IV 11/17 12/18 monitor electrolytes [employer] also following (10) Leukopenia Plan: Intermittent episodes of decreased WBC count. This likely secondary to sepsis and acute infection and illness. Continue to monitor CBC with differential. Prophylaxis. PPI DVT prophylaxis. SCDs, no chemotherapy prophylaxis due to anemia. Problem Qualifiers (1) Diarrhea: Qualified Code: A09 - Diarrhea of presumed infectious origin (2) Anemia: Mary Chiang MD Dec 19, 2016 16:42
--- NOTE | 2016-12-19 18:43 | HHI.GIFU ---
GI Follow-up Note Consult Follow-up Subjective: Patient laying in bed comfortably, no new complaints except some loose bowels Objective: PHYSICAL EXAMINATION: Vitals signs stable No fever HEENT: Pupils round and reactive to light; normocephalic; atraumatic; no jaundice. Throat is clear. NECK: Neck is supple, no JVD, no lymphadenopathy. CHEST: Chest is clear to auscultation and percussion. CARDIAC: Regular rate and rhythm with no murmur gallop or rubs. ABDOMEN: Soft, nondistended, nontender; no hepatosplenomegaly; bowel sounds are present in all four quadrants. EXTREMITIES: No clubbing, cyanosis, or edema. SKIN: Normal; no rash; no jaundice. PHARMACEUTICAL PHYSICIAN: No focal deficits; alert and oriented times three. Available Data (labs, X- Rays, Procedues) : Last Impressions Chest X-Ray 12/14/16 0000 Signed Impressions: Service Date/Time: December 18:44 - CONCLUSION: Improved right lower lobe infiltrate. Kan Borges MD Head CT 12/02/16 0000 Signed Impressions: Service Date/Time: Friday, December 02, 2016 14:39 - CONCLUSION: No acute disease. Kan Altamirano MD Abdomen/Pelvis CT 11/28/16 0054 Signed Impressions: Service Date/Time: Monday, November 28, 2016 01:47 - CONCLUSION: Severe constipation. No acute CT findings. Kan Lyons MD Laboratory Tests Test 12/18/16 07:40 White Blood Count 3.6 TH/MM3 Red Blood Count 2.62 MIL/MM3 Hemoglobin 7.8 GM/DL Hematocrit 22.5 % Mean Corpuscular Volume 85.7 FL Mean Corpuscular Hemoglobin 29.9 PG Mean Corpuscular Hemoglobin 34.9 % Concent Red Cell Distribution Width 22.1 % Platelet Count 233 TH/MM3 Mean Platelet Volume 8.1 FL Neutrophils (%) (Auto) 45.3 % Lymphocytes (%) (Auto) 36.9 % Monocytes (%) (Auto) 11.9 % Eosinophils (%) (Auto) 3.7 % Basophils (%) (Auto) 2.2 % Neutrophils # (Auto) 1.6 TH/MM3 Lymphocytes # (Auto) 1.3 TH/MM3 Monocytes # (Auto) 0.4 TH/MM3 Eosinophils # (Auto) 0.1 TH/MM3 Basophils # (Auto) 0.1 TH/MM3 CBC Comment DIFF FINAL Differential Comment Sodium Level 142 MEQ/L Potassium Level 4.3 MEQ/L Chloride Level 111 MEQ/L Carbon Dioxide Level 23.2 MEQ/L Anion Gap 8 MEQ/L Blood Urea Nitrogen 4 MG/DL Creatinine 0.47 MG/DL Estimat Glomerular Filtration 195 ML/MIN Rate Random Glucose 126 MG/DL Calcium Level 7.5 MG/DL Phosphorus Level 2.2 MG/DL Magnesium Level 1.0 MG/DL Total Bilirubin 0.5 MG/DL Aspartate Amino Transf 11 U/L (AST/SGOT) Alanine Aminotransferase 10 U/L (ALT/SGPT) Alkaline Phosphatase 104 U/L Total Protein 4.9 GM/DL Albumin 1.9 GM/DL Allergies Coded Allergies Type Severity Reaction Last Updated Verified *MDRO Multi-Drug Resistant Organism Adverse Reaction Unknown MRSA 11/30/16 Yes Active Scripts Medications Dose Route/Sig Days Date Category Dose Instructions Zofran (Ondansetron HCl) 4 Mg Tab 4 Mg PO Q6HR PRN 11/28/16 Reported Metformin (Metformin HCl) 500 Mg Tab 500 Mg PO BIDPC 11/28/16 Reported With meals ASSESSMENT/PLAN: Seen and examined, doing better. Less diarrhea. No upper gi symptoms reported. GI will sign off, reconsult as needed. Thank you It was a pleasure seeing Dalton Arce. Thank you for this consult. Entered by: Jeremy Rodriguez MD Dec 19, 2016 18:43
[2016-12-19] MEDS: MESALAMINE 1000 MG SUPP RECTAL SCH (21:00)
[2016-12-20] MEDS: LACTATED RINGER'S 1000 ML INJ 1,000 ML IV SCH ×3 (02:00→22:12)
[2016-12-20] MEDS: CHLORHEXIDINE GLUCONATE 2 % 1 PACK (2 CLOTHS) TOP SCH (04:00)
[2016-12-20] MEDS: ACETAMINOPHEN/HYDROcodone 325 MG/5 MG TAB PO PRN ×5 (05:29→22:12)
[2016-12-20] MEDS: LACTOBACILLUS ACIDOPHILUS TAB PO SCH ×3 (05:30→22:09)
[2016-12-20] MEDS: metroNIDAZOLE 500 MG INJ 100 ML IV SCH ×4 (05:31→22:11)
[2016-12-20] MEDS: DIPHENOXYLATE/ATROPINE 2.5 MG/0.025 MG TAB PO SCH ×4 (05:37→22:08)
[2016-12-20] MEDS: INSULIN ASPART SUPPLEMENTAL SCALE SQ SCH ×4 (05:38→21:00)
[2016-12-20 05:40] VITALS: BP 136/88; PULSE 115; RESP 18; TEMP 101.2; O2SAT 96
[2016-12-20 07:48] VITALS: BP 130/77; PULSE 114; RESP 18; TEMP 99; O2SAT 95
[2016-12-20] MEDS: SODIUM CHLORIDE 0.9% FLUSH 5 ML FLUSH IV FLUSH SCH ×2 (09:00→22:08)
[2016-12-20] MEDS: NYSTATIN 100,000 U/GM PWD 15 GM BTL TOPICAL SCH ×2 (09:00→21:00)
[2016-12-20] MEDS: FLUCONAZOLE 200 MG TAB PO SCH (09:10)
[2016-12-20] MEDS: POTASSIUM PHOSPHATE MONOBASIC 500 MG TAB PO SCH ×2 (09:10→22:09)
[2016-12-20] MEDS: CALCIUM CARBONATE 500 MG CHEWABLE TAB CHEW SCH ×2 (09:11→22:08)
[2016-12-20] MEDS: RIFAXIMIN 550 MG TAB PO SCH ×2 (09:11→22:10)
[2016-12-20] MEDS: LIPASE/PROTEASE/AMYLASE (24,000/76,000/120,000) CAP PO SCH ×3 (09:11→18:16)
[2016-12-20] MEDS: PANTOPRAZOLE SODIUM 40 MG VIAL IV SCH (09:11)
[2016-12-20] MEDS: CHOLESTYRAMINE 4 GM PACKET PO SCH (09:12)
--- NOTE | 2016-12-20 09:29 | HHI.PR ---
Subjective Remarks No much diarrhea and feels improving. No fever or chills overnight. Pain is controlled by meds. He is alert and oriented. Perineal rash is better. Mag and phos low replace. Objective Vitals Vital Signs Date Time Temp Pulse Resp B/P Pulse Ox O2 Delivery O2 Flow Rate FiO2 12/20/16 05:40 101.2 115 18 136/88 96 12/19/16 23:57 97.9 107 18 120/80 98 12/19/16 20:30 98.7 109 17 119/85 97 12/19/16 14:00 98.8 108 21 123/78 100 12/19/16 12:12 99.3 78 20 140/83 98 I/O 12/19/16 12/19/16 12/19/16 12/20/16 12/20/16 12/20/16 07:00 15:00 23:00 07:00 15:00 23:00 Intake Total 720 ml 1000 ml 1000 ml Output Total 1150 ml 2700 ml 1200 ml Balance -430 ml -1700 ml -200 ml Intake Oral 720 ml 1000 ml 1000 ml Output Urine Total 1150 ml 2700 ml 1200 ml # Bowel Movements 5 10 3 Result Diagram: 12/18/16 0740 12/18/16 0740 Imaging Last Impressions Chest X-Ray 12/14/16 0000 Signed Impressions: Service Date/Time: December 18:44 - CONCLUSION: Improved right lower lobe infiltrate. Kan Borges MD Head CT 12/02/16 0000 Signed Impressions: Service Date/Time: Friday, December 02, 2016 14:39 - CONCLUSION: No acute disease. Kan Altamirano MD Abdomen/Pelvis CT 11/28/16 0054 Signed Impressions: Service Date/Time: Monday, November 28, 2016 01:47 - CONCLUSION: Severe constipation. No acute CT findings. Kan Lyons MD Objective Remarks GENERAL: Critically ill, cachectic middle-aged male, lying in bed. Pale. HEENT: Sunken bitemporal bones. Atraumatic. Pupils equal, round and reactive. Mucous membranes are dry. NECK: Trachea is midline. There is no JVD. CHEST: Equal chest rise. Clear to auscultation. CARDIOVASCULAR: Regular rhythm. No appreciable murmurs. ABDOMEN: Small healed scar subxiphoid from prior PEG tube placement. Diffuse tenderness to palpation. There is no guarding. No hepatosplenomegaly. MUSCULOSKELETAL: Distal pulses 2+. No pitting Edema. NEUROLOGICAL: Alert, awake, oriented. Follows commands in all 4 extremities. A/P Problem List: (1) Severe sepsis ICD Code: A41.9 Status: Resolved (2) Metabolic encephalopathy ICD Code: G93.41 Status: Resolved (3) Diarrhea ICD Code: R19.7 Status: Resolved (4) FELICITAS (acute kidney injury) ICD Code: N17.9 Status: Resolved (5) Hypothermia ICD Code: T68.XXXA Status: Acute (6) Hyperglycemia ICD Code: R73.9 Status: Acute (7) Anemia ICD Code: D64.9 Status: Chronic (8) Constipation ICD Code: K59.00 Status: Resolved (9) Hypocalcemia ICD Code: E83.51 Status: Resolved (10) Leukopenia ICD Code: D72.819 Status: Acute Assessment and Plan Assessment: This is a 41-year-old male with a history of failure to thrive who presents with multiple acute on chronic medical problems including kidney injury , septic shock, diarrhea, possible colitis. He is very critically ill this time , and descending obstruction has to be ruled out. We will admit him to the ICU and monitor him carefully. We will empirically cover him with antibiotics and await culture data. GI, general surgery and ID following (1) Severe sepsis Plan: This is a 41-year-old male with a history of failure to thrive who presents with multiple acute and chronic medical problems including kidney injury, septic shock, diarrhea and possible colitis. The patient was very critically ill at the time of presentation and was admitted to the intensive care unit. GI and general surgery were consulted and are following. Unclear etiology, possible pneumonia due to infiltrate found on chest x-ray. Chest x-ray obtained on 12/14/16, shows improved right lower lobe infiltrate. Sepsis syndrome improving with improved leukopenia, tachycardia still persistent heart rate in the 100s. IVF. Antibiotics as per ID. Flagyl discontinued on 12/15. Continue fluconazole. Stool studies/cultures as below. (2) Metabolic encephalopathy Plan: Metabolic encephalopathy has been resolved. Likely secondary to sepsis. Continue to monitor neurological status. (3) Diarrhea Plan: Patient is status post EGD colonoscopy on 11/29. GI and general surgery following. Status post flexible sigmoidoscopy with biopsy on 12/13/16 Follow-up biopsy. Stool studies are for Cryptosporidium, Giardia, culture negative for enteric pathogens. Stool AFB negative, mycobacterial culture pending If everything is negative diarrhea likely secondary to colitis. Continue with Lactobacillus acidophilus, rifaximin, Lomotil. (4) FELICITAS (acute kidney injury) Plan: Improved. Continue to monitor BMP. (5) Hypothermia Plan: Patient has intermittent episodes of hypothermia. Status post aggressive warming with Bear hugger. Random cortisol 47 and likely to be adrenal insufficiency. (6) Hyperglycemia Plan: Blood sugars remained mildly elevated. Hemoglobin A1c pending. 12/17 blood sugars trending up. Patient is a known diabetic with diabetes type 2 which is controlled with a hemoglobin A1c of 6.2. I will place the patient on SSI with insulin NovoLog and monitor Accu-Cheks. (7) Anemia Plan: Status post infusion of 3 units of PRBCs 11/28, 11/29, 11/30 Hemoglobin remains low, 7's-8's Continue to monitor hemoglobin and transfuse as needed for hemoglobin is 7 or symptomatic anemia. No active signs of bleeding. (8) Constipation Plan: Initially the patient presented with constipation and what seemed to be overflow diarrhea. Diarrhea as above. (9) Hypocalcemia Hypomagnesemia Hypophosphatemia Severe protein calorie malnutrition Refeeding sdr Plan: Likely secondary to malnutrition. Protein corrected calcium low at 8.3, received IV calcium. Monitor lytes and continue to replace. Replace mag by IV 11/17 12/18 monitor electrolytes Detacher also following (10) Leukopenia Plan: Intermittent episodes of decreased WBC count. This likely secondary to sepsis and acute infection and illness. Continue to monitor CBC with differential. Prophylaxis. PPI DVT prophylaxis. SCDs, no chemotherapy prophylaxis due to anemia. Problem Qualifiers (1) Diarrhea: Qualified Code: A09 - Diarrhea of presumed infectious origin (2) Anemia: Mary Chiang MD Dec 20, 2016 09:29
[2016-12-20 11:30] VITALS: BP 121/78; PULSE 109; RESP 18; TEMP 99.5; O2SAT 98
[2016-12-20] MEDS ORDERED: POTASSIUM PHOSPHATE MONOBASIC 500 MG TAB PO ONE (15:00)
[2016-12-20] MEDS: FERROUS SULFATE 325 MG (65 MG ELEMENTAL IRON) TAB PO SCH (16:40)
[2016-12-20] MEDS: MAGNESIUM SULFATE 1 GM PREMIX 100 ML IV SCH ×2 (16:41→18:16)
[2016-12-20 20:00] VITALS: BP 115/78; PULSE 111; RESP 18; TEMP 98.6; O2SAT 98
[2016-12-20] MEDS: MESALAMINE 1000 MG SUPP RECTAL SCH (21:00)
[2016-12-21] VITALS (9 sets, daily range): BP systolic 101–141; BP diastolic 76–90; PULSE 91–109; RESP 16–19; TEMP 97.2–98.7; O2SAT 98–99
[2016-12-21] MEDS: CHLORHEXIDINE GLUCONATE 2 % 1 PACK (2 CLOTHS) TOP SCH (04:00)
[2016-12-21] MEDS: metroNIDAZOLE 500 MG INJ 100 ML IV SCH ×2 (04:14→08:56)
[2016-12-21] MEDS: DIPHENOXYLATE/ATROPINE 2.5 MG/0.025 MG TAB PO SCH ×4 (04:14→21:26)
[2016-12-21] MEDS: ACETAMINOPHEN/HYDROcodone 325 MG/5 MG TAB PO PRN ×5 (04:15→21:35)
[2016-12-21] MEDS: LACTOBACILLUS ACIDOPHILUS TAB PO SCH ×3 (06:29→21:26)
[2016-12-21] MEDS: INSULIN ASPART SUPPLEMENTAL SCALE SQ SCH ×4 (06:32→21:26)
[2016-12-21 07:41] LABS: AUTOMATED NEUTROPHIL # 1.7 TH/MM3 (1.8-7.7); BASOPHIL # 0.1 TH/MM3 (0-0.2); BASOPHIL % 2.3 % (0.0-2.0); EOSINOPHIL # 0.2 TH/MM3 (0-0.4); EOSINOPHIL % 4.3 % (0.0-4.0); LYMPH % 29.7 % (9.0-44.0); LYMPHOCYTE # 1.1 TH/MM3 (1.0-4.8); MEAN CORPUSCULAR HEMOGLOBIN 29.8 PG (27.0-34.0); MEAN CORPUSCULAR HGB CONC 33.8 % (32.0-36.0); MONO % 15.3 % (0.0-8.0); NEUT % 48.4 % (16.0-70.0); PLATELET COUNT 170 TH/MM3 (150-450); RED BLOOD COUNT 2.33 MIL/MM3 (4.50-5.90); RED CELL DISTRIBUTION WIDTH 23.2 % (11.6-17.2); WHITE BLOOD COUNT 3.5 TH/MM3 (4.0-11.0)
[2016-12-21 07:54] LABS: HEMO FLAGS DIFF FINAL
[2016-12-21 07:58] LABS: HEMATOCRIT 20.5 % (39.0-51.0)
[2016-12-21 08:14] LABS: BICARBONATE 25.1 MEQ/L (21.0-32.0); MAGNESIUM 1.5 MG/DL (1.5-2.5); POTASSIUM 4.3 MEQ/L (3.5-5.1)
[2016-12-21] MEDS ORDERED: SODIUM CHLOR 0.9% 250 ML INJ 250 ML IV ONE (08:15)
[2016-12-21] MEDS: CALCIUM CARBONATE 500 MG CHEWABLE TAB CHEW SCH ×2 (08:47→21:26)
[2016-12-21] MEDS: LIPASE/PROTEASE/AMYLASE (24,000/76,000/120,000) CAP PO SCH ×3 (08:47→18:01)
[2016-12-21] MEDS: POTASSIUM PHOSPHATE MONOBASIC 500 MG TAB PO SCH ×2 (08:47→21:26)
[2016-12-21] MEDS: NYSTATIN 100,000 U/GM PWD 15 GM BTL TOPICAL PRN ×2 (08:48→21:29)
[2016-12-21] MEDS: RIFAXIMIN 550 MG TAB PO SCH ×2 (08:48→21:26)
[2016-12-21] MEDS: PANTOPRAZOLE SODIUM 40 MG VIAL IV SCH (08:49)
[2016-12-21] MEDS: NYSTATIN 100,000 U/GM PWD 15 GM BTL TOPICAL SCH ×2 (08:49→21:00)
[2016-12-21] MEDS: SODIUM CHLORIDE 0.9% FLUSH 5 ML FLUSH IV FLUSH SCH ×2 (08:51→21:00)
[2016-12-21] MEDS: CHOLESTYRAMINE 4 GM PACKET PO SCH (08:57)
--- NOTE | 2016-12-21 09:30 | HHI.PR ---
Subjective Remarks HGB dropped to 6.9. Plan to transfuse 2 UPRBCs. Says he feels tired. No n/v/d/c. Denies chest pain, sob. Says he has generalized weakness. No fever or chills. Less diarrhea. Has a good appetite and is eating well. No signs of bleeding. Objective Vitals Vital Signs Date Time Temp Pulse Resp B/P Pulse Ox O2 Delivery O2 Flow Rate FiO2 12/21/16 08:25 97.2 93 18 141/90 98 12/21/16 04:00 97.4 107 18 101/80 98 12/21/16 00:00 98.2 91 18 112/76 99 12/20/16 20:00 98.6 111 18 115/78 98 12/20/16 11:30 99.5 109 18 121/78 98 I/O 12/20/16 12/20/16 12/20/16 12/21/16 12/21/16 12/21/16 07:00 15:00 23:00 07:00 15:00 23:00 Intake Total 1000 ml 800 ml 480 ml Output Total 1200 ml 500 ml Balance -200 ml 300 ml 480 ml Intake Oral 1000 ml 800 ml 480 ml Output Urine Total 1200 ml 500 ml # Voids 3 # Bowel Movements 3 4 3 Result Diagram: 12/21/16 0657 12/21/16 0657 Imaging Last Impressions Chest X-Ray 12/14/16 0000 Signed Impressions: Service Date/Time: December 18:44 - CONCLUSION: Improved right lower lobe infiltrate. Kan Borges MD Head CT 12/02/16 0000 Signed Impressions: Service Date/Time: Friday, December 02, 2016 14:39 - CONCLUSION: No acute disease. Kan Altamirano MD Abdomen/Pelvis CT 11/28/16 0054 Signed Impressions: Service Date/Time: Monday, November 28, 2016 01:47 - CONCLUSION: Severe constipation. No acute CT findings. Kan Lyons MD Objective Remarks GENERAL: Critically ill, cachectic middle-aged male, lying in bed. Pale. HEENT: Sunken bitemporal bones. Atraumatic. Pupils equal, round and reactive. Mucous membranes are dry. NECK: Trachea is midline. There is no JVD. CHEST: Equal chest rise. Clear to auscultation. CARDIOVASCULAR: Regular rhythm. No appreciable murmurs. ABDOMEN: Small healed scar subxiphoid from prior PEG tube placement. Diffuse tenderness to palpation. There is no guarding. No hepatosplenomegaly. MUSCULOSKELETAL: Distal pulses 2+. No pitting Edema. NEUROLOGICAL: Alert, awake, oriented. Follows commands in all 4 extremities. A/P Problem List: (1) Severe sepsis ICD Code: A41.9 Status: Resolved (2) Metabolic encephalopathy ICD Code: G93.41 Status: Resolved (3) Diarrhea ICD Code: R19.7 Status: Resolved (4) FELICITAS (acute kidney injury) ICD Code: N17.9 Status: Resolved (5) Hypothermia ICD Code: T68.XXXA Status: Acute (6) Hyperglycemia ICD Code: R73.9 Status: Acute (7) Anemia ICD Code: D64.9 Status: Chronic (8) Constipation ICD Code: K59.00 Status: Resolved (9) Hypocalcemia ICD Code: E83.51 Status: Resolved (10) Leukopenia ICD Code: D72.819 Status: Acute Assessment and Plan This is a 41-year-old male with a history of failure to thrive who presents with multiple acute on chronic medical problems including kidney injury, septic shock, diarrhea, possible colitis. He is very critically ill this time, and descending obstruction has to be ruled out. We will admit him to the ICU and monitor him carefully. We will empirically cover him with antibiotics and await culture data. GI, general surgery and ID following (1) Severe sepsis Plan: This is a 41-year-old male with a history of failure to thrive who presents with multiple acute and chronic medical problems including kidney injury, septic shock, diarrhea and possible colitis. The patient was very critically ill at the time of presentation and was admitted to the intensive care unit. GI and general surgery were consulted and are following. Unclear etiology, possible pneumonia due to infiltrate found on chest x-ray. Chest x-ray obtained on 12/14/16, shows improved right lower lobe infiltrate. Sepsis syndrome improving with improved leukopenia, tachycardia still persistent heart rate in the 100s. IVF. Antibiotics as per ID. Flagyl discontinued on 12/15. Continue fluconazole. Stool studies/cultures as below. (2) Metabolic encephalopathy Plan: Metabolic encephalopathy has been resolved. Likely secondary to sepsis. Continue to monitor neurological status. (3) Diarrhea Plan: Patient is status post EGD colonoscopy on 11/29. GI and general surgery following. Status post flexible sigmoidoscopy with biopsy on 12/13/16 Follow-up biopsy. Stool studies are for Cryptosporidium, Giardia, culture negative for enteric pathogens. Stool AFB negative, mycobacterial culture pending If everything is negative diarrhea likely secondary to colitis. Continue with Lactobacillus acidophilus, rifaximin, Lomotil. (4) FELICITAS (acute kidney injury) Plan: Improved. Continue to monitor BMP. (5) Hypothermia Plan: Patient has intermittent episodes of hypothermia. Status post aggressive warming with Bear hugger. Random cortisol 47 and likely to be adrenal insufficiency. (6) Hyperglycemia Plan: Blood sugars remained mildly elevated. Hemoglobin A1c pending. 12/17 blood sugars trending up. Patient is a known diabetic with diabetes type 2 which is controlled with a hemoglobin A1c of 6.2. I will place the patient on SSI with insulin NovoLog and monitor Accu-Cheks. (7) Anemia Plan: Status post infusion of 3 units of PRBCs 11/28, 11/29, 11/30 Hemoglobin remains low, 7's-8's Continue to monitor hemoglobin and transfuse as needed for hemoglobin is 7 or symptomatic anemia. No active signs of bleeding. HGB dropped to 6.9 on 12/21/16. ill transfuse 2U PRBC. Monitor H/h and transfuse as need. (8) Constipation Plan: Initially the patient presented with constipation and what seemed to be overflow diarrhea. Diarrhea as above. (9) Hypocalcemia Hypomagnesemia Hypophosphatemia Severe protein calorie malnutrition Refeeding sdr Plan: Likely secondary to malnutrition. Protein corrected calcium low at 8.3, received IV calcium. Monitor lytes and continue to replace. Replace mag by IV 11/17 12/18 monitor electrolytes Cash Management Associate also following (10) Leukopenia Plan: Intermittent episodes of decreased WBC count. This likely secondary to sepsis and acute infection and illness. Continue to monitor CBC with differential. Prophylaxis. PPI DVT prophylaxis. SCDs, no chemotherapy prophylaxis due to anemia. Problem Qualifiers (1) Diarrhea: Qualified Code: A09 - Diarrhea of presumed infectious origin (2) Anemia: Mary Chiang MD Dec 21, 2016 09:30
[2016-12-21 12:17] LABS: FERRITIN 587 NG/ML (26-388); TRANSFERRIN IRON PROFILE 72 MG/DL (200-360)
[2016-12-21] MEDS: FERROUS SULFATE 325 MG (65 MG ELEMENTAL IRON) TAB PO SCH ×2 (12:34→18:01)
--- NOTE | 2016-12-21 16:14 | HHI.IDPN ---
Note Infectious Disease Note Patient feels okay. Very good appetite. Continues to have uncontrolled copious stools today. Liquid brown. Afebrile. No abdominal pain. Previous colon biopsy shows acute colitis with ischemic features on path. Stool c. diff negative. PAST MEDICAL HISTORY 1. Diabetes mellitus reportedly improved after he lost a lot of weight 2. Arthritis, 3. Coronary artery disease, 4. Hypercholesteremia, 5. Congestive heart failure, 6. Fibromyalgia, 7. Gastroesophageal reflux disease, 8. Hepatitis, 9. Gout. 10. Hypertension, 11. kidney stones 12. History of left hip surgery, 13. History of right nephro lithotripsy and a J-tube stent 14. vasectomy. ALLERGIES NO KNOWN DRUG ALLERGIES. ANTIBIOTICS: Flagyl IV. Fluconazole. SOCIAL HISTORY No tobacco use. Occasional alcohol. Positive cocaine use. OBJECTIVE: Vital Signs Date Time Temp Pulse Resp B/P Pulse Ox O2 Delivery O2 Flow Rate FiO2 12/21/16 15:49 98.6 105 17 124/82 98 12/21/16 12:20 97.9 105 17 120/79 98 12/21/16 08:25 97.2 93 18 141/90 98 12/21/16 04:00 97.4 107 18 101/80 98 12/21/16 00:00 98.2 91 18 112/76 99 12/20/16 20:00 98.6 111 18 115/78 98 12/20/16 12/20/16 12/21/16 15:00 23:00 07:00 Intake Total 800 ml 480 ml Output Total 500 ml Balance 300 ml 480 ml Intake Oral 800 ml 480 ml Output Urine Total 500 ml # Voids 3 # Bowel Movements 4 3 Laboratory Tests Test 12/21/16 06:57 White Blood Count 3.5 TH/MM3 Red Blood Count 2.33 MIL/MM3 Hemoglobin 6.9 GM/DL Hematocrit 20.5 % Mean Corpuscular Volume 88.0 FL Mean Corpuscular Hemoglobin 29.8 PG Mean Corpuscular Hemoglobin 33.8 % Concent Red Cell Distribution Width 23.2 % Platelet Count 170 TH/MM3 Mean Platelet Volume 8.4 FL Neutrophils (%) (Auto) 48.4 % Lymphocytes (%) (Auto) 29.7 % Monocytes (%) (Auto) 15.3 % Eosinophils (%) (Auto) 4.3 % Basophils (%) (Auto) 2.3 % Neutrophils # (Auto) 1.7 TH/MM3 Lymphocytes # (Auto) 1.1 TH/MM3 Monocytes # (Auto) 0.5 TH/MM3 Eosinophils # (Auto) 0.2 TH/MM3 Basophils # (Auto) 0.1 TH/MM3 CBC Comment DIFF FINAL Differential Comment Laboratory Tests Test 12/21/16 12/21/16 06:57 11:05 Sodium Level 140 MEQ/L Potassium Level 4.3 MEQ/L Chloride Level 106 MEQ/L Carbon Dioxide Level 25.1 MEQ/L Anion Gap 9 MEQ/L Blood Urea Nitrogen 5 MG/DL Creatinine 0.47 MG/DL Estimat Glomerular Filtration 195 ML/MIN Rate Random Glucose 189 MG/DL Calcium Level 7.6 MG/DL Phosphorus Level 2.3 MG/DL Magnesium Level 1.5 MG/DL Iron Level 95 MCG/DL Total Iron Binding Capacity 101 MCG/DL Percent Iron Saturation 94.2 % Ferritin 587 NG/ML Vitamin B12 Level 1099 PG/ML 25-Hydroxy Vitamin D Total 8.4 ng/ML Folate 9.6 NG/ML IMAGING; Chest X-Ray 12/14/16 0000 Signed Impressions: Service Date/Time: December 18:44 - CONCLUSION: Improved right lower lobe infiltrate. Kan Borges MD Head CT 12/02/16 0000 Signed Impressions: Service Date/Time: Friday, December 02, 2016 14:39 - CONCLUSION: No acute disease. Kan Altamirano MD Abdomen/Pelvis CT 11/28/16 0054 Signed Impressions: Service Date/Time: Monday, November 28, 2016 01:47 - CONCLUSION: Severe constipation. No acute CT findings. Kan Lyons MD PHYSICAL EXAMINATION GENERAL: Cachectic. No acute distress. Awake,alert and oriented. HEENT: Oropharynx no visible lesions. NECK: Supple without adenopathy. LUNGS: Clear breath sounds. HEART: Distant S1-S2 without audible murmurs, rubs or gallops. ABDOMEN: Positive bowel sounds. Non tender. EXTREMITIES: No clubbing, cyanosis or edema. Diffuse muscle wasting throughout. SKIN: Macular rash on lower abdomen and buttock. NEUROLOGIC: Nonfocal. PSYCHIATRIC: Calm and cooperative. IMPRESSION 1. Septic shock. Improved. 2. Diarrhea. Stool studies negative. Still having loose stools. 3. Severe protein calorie malnutrition. 4. R. lung infiltrate on CXR. ?pneumonia vs atelectasis. Improved. 5. Claudia esophagitis. Treated. 6. Colitis - Non specific. RECOMMENDATIONS 1. Switch to PO Flagyl. 2. Monitor stools. Wilber Nunez MD Dec 21, 2016 16:14
[2016-12-21] MEDS: LACTATED RINGER'S 1000 ML INJ 1,000 ML IV SCH ×2 (17:11→18:00)
[2016-12-21] MEDS: MESALAMINE 1000 MG SUPP RECTAL SCH (21:00)
[2016-12-21] MEDS: metroNIDAZOLE 250 MG TAB PO SCH (21:26)
[2016-12-22 00:41] VITALS: BP 144/87; PULSE 95; RESP 18; TEMP 99.3; O2SAT 99
[2016-12-22] MEDS: DIPHENOXYLATE/ATROPINE 2.5 MG/0.025 MG TAB PO SCH ×4 (02:00→22:47)
[2016-12-22] MEDS: CHLORHEXIDINE GLUCONATE 2 % 1 PACK (2 CLOTHS) TOP SCH (04:00)
[2016-12-22] MEDS: LACTATED RINGER'S 1000 ML INJ 1,000 ML IV SCH ×2 (04:00→12:15)
[2016-12-22 05:43] VITALS: BP 145/88; PULSE 89; RESP 16; TEMP 97; O2SAT 97
[2016-12-22] MEDS: metroNIDAZOLE 250 MG TAB PO SCH ×3 (06:06→22:48)
[2016-12-22] MEDS: INSULIN ASPART SUPPLEMENTAL SCALE SQ SCH ×4 (06:06→23:05)
[2016-12-22] MEDS: LACTOBACILLUS ACIDOPHILUS TAB PO SCH ×3 (06:06→22:49)
[2016-12-22] MEDS: ACETAMINOPHEN/HYDROcodone 325 MG/5 MG TAB PO PRN ×5 (06:07→22:49)
[2016-12-22 08:00] VITALS: BP 142/93; PULSE 96; RESP 18; TEMP 97; O2SAT 98
[2016-12-22 08:24] LABS: AUTOMATED NEUTROPHIL # 1.8 TH/MM3 (1.8-7.7); BASOPHIL # 0.1 TH/MM3 (0-0.2); BASOPHIL % 2.2 % (0.0-2.0); EOSINOPHIL # 0.2 TH/MM3 (0-0.4); EOSINOPHIL % 5.1 % (0.0-4.0); HEMATOCRIT 33.1 % (39.0-51.0); HEMO FLAGS DIFF FINAL; LYMPH % 29.1 % (9.0-44.0); MEAN CELL VOLUME 86.2 FL (80.0-100.0); MEAN CORPUSCULAR HEMOGLOBIN 29.5 PG (27.0-34.0); MEAN CORPUSCULAR HGB CONC 34.2 % (32.0-36.0); MONO % 14.7 % (0.0-8.0); NEUT % 48.9 % (16.0-70.0); PLATELET COUNT 175 TH/MM3 (150-450); RED BLOOD COUNT 3.83 MIL/MM3 (4.50-5.90); RED CELL DISTRIBUTION WIDTH 19.5 % (11.6-17.2); WHITE BLOOD COUNT 3.6 TH/MM3 (4.0-11.0)
[2016-12-22 08:45] LABS: BICARBONATE 27.3 MEQ/L (21.0-32.0); MAGNESIUM 1.2 MG/DL (1.5-2.5); POTASSIUM 4.2 MEQ/L (3.5-5.1)
[2016-12-22] MEDS: PANTOPRAZOLE SODIUM 40 MG VIAL IV SCH (08:52)
[2016-12-22] MEDS: LIPASE/PROTEASE/AMYLASE (24,000/76,000/120,000) CAP PO SCH ×3 (08:52→17:58)
[2016-12-22] MEDS: POTASSIUM PHOSPHATE MONOBASIC 500 MG TAB PO SCH ×2 (08:52→22:48)
[2016-12-22] MEDS: SODIUM CHLORIDE 0.9% FLUSH 5 ML FLUSH IV FLUSH SCH ×2 (08:53→21:00)
[2016-12-22] MEDS: RIFAXIMIN 550 MG TAB PO SCH ×2 (08:53→22:47)
[2016-12-22] MEDS: CHOLESTYRAMINE 4 GM PACKET PO SCH (08:53)
[2016-12-22] MEDS: CALCIUM CARBONATE 500 MG CHEWABLE TAB CHEW SCH ×2 (08:53→22:50)
[2016-12-22] MEDS: NYSTATIN 100,000 U/GM PWD 15 GM BTL TOPICAL SCH ×2 (08:54→23:05)
--- NOTE | 2016-12-22 11:01 | HHI.PR ---
Subjective Remarks HGB at 11 after blood transfusion Also with vit D deficiency. Will start ergocaliferol Patient says she feels very tired today and he is cold and has chills. Says he had diarrhea again many times overnight. No n/v. No fever. Objective Vitals Vital Signs Date Time Temp Pulse Resp B/P Pulse Ox O2 Delivery O2 Flow Rate FiO2 12/22/16 08:00 97.0 96 18 142/93 98 12/22/16 05:43 97.0 89 16 145/88 97 12/22/16 00:41 99.3 95 18 144/87 99 12/21/16 21:27 97.2 100 16 135/90 99 12/21/16 18:25 98.2 102 19 132/77 99 12/21/16 18:11 98.7 109 19 128/83 98 12/21/16 17:55 98.6 105 18 124/82 98 12/21/16 15:49 98.6 105 17 124/82 98 12/21/16 12:20 97.9 105 17 120/79 98 I/O 12/21/16 12/21/16 12/21/16 12/22/16 12/22/16 12/22/16 07:00 15:00 23:00 07:00 15:00 23:00 Intake Total 480 ml 720 ml Output Total 1400 ml 400 ml Balance 480 ml -680 ml -400 ml Intake Oral 480 ml 720 ml Output Urine Total 1400 ml 400 ml # Voids 3 2 # Bowel Movements 3 5 1 Result Diagram: 12/22/1628 12/22/1628 Imaging Last Impressions Chest X-Ray 12/14/16 0000 Signed Impressions: Service Date/Time: December 18:44 - CONCLUSION: Improved right lower lobe infiltrate. Kan Borges MD Head CT 12/02/16 0000 Signed Impressions: Service Date/Time: Friday, December 02, 2016 14:39 - CONCLUSION: No acute disease. Kan Altamirano MD Abdomen/Pelvis CT 11/28/16 0054 Signed Impressions: Service Date/Time: Monday, November 28, 2016 01:47 - CONCLUSION: Severe constipation. No acute CT findings. Kan Lyons MD Objective Remarks GENERAL: Critically ill, cachectic middle-aged male, lying in bed. Pale. HEENT: Sunken bitemporal bones. Atraumatic. Pupils equal, round and reactive. Mucous membranes are dry. NECK: Trachea is midline. There is no JVD. CHEST: Equal chest rise. Clear to auscultation. CARDIOVASCULAR: Regular rhythm. No appreciable murmurs. ABDOMEN: Small healed scar subxiphoid from prior PEG tube placement. Diffuse tenderness to palpation. There is no guarding. No hepatosplenomegaly. MUSCULOSKELETAL: Distal pulses 2+. No pitting Edema. NEUROLOGICAL: Alert, awake, oriented. Follows commands in all 4 extremities. SKIN: sacral decubitus wounds. Rash on perineal area. A/P Problem List: (1) Severe sepsis ICD Code: A41.9 Status: Resolved (2) Metabolic encephalopathy ICD Code: G93.41 Status: Resolved (3) Diarrhea ICD Code: R19.7 Status: Resolved (4) FELICITAS (acute kidney injury) ICD Code: N17.9 Status: Resolved (5) Hypothermia ICD Code: T68.XXXA Status: Acute (6) Hyperglycemia ICD Code: R73.9 Status: Acute (7) Anemia ICD Code: D64.9 Status: Chronic (8) Constipation ICD Code: K59.00 Status: Resolved (9) Hypocalcemia ICD Code: E83.51 Status: Resolved (10) Leukopenia ICD Code: D72.819 Status: Acute Assessment and Plan This is a 41-year-old male with a history of failure to thrive who presents with multiple acute on chronic medical problems including kidney injury, septic shock, diarrhea, possible colitis. He is very critically ill this time, and descending obstruction has to be ruled out. We will admit him to the ICU and monitor him carefully. We will empirically cover him with antibiotics and await culture data. GI, general surgery and ID following (1) Severe sepsis Plan: This is a 41-year-old male with a history of failure to thrive who presents with multiple acute and chronic medical problems including kidney injury, septic shock, diarrhea and possible colitis. The patient was very critically ill at the time of presentation and was admitted to the intensive care unit. GI and general surgery were consulted and are following. Unclear etiology, possible pneumonia due to infiltrate found on chest x-ray. Chest x-ray obtained on 12/14/16, shows improved right lower lobe infiltrate. Sepsis syndrome improving with improved leukopenia, tachycardia still persistent heart rate in the 100s. IVF. Antibiotics as per ID. Flagyl discontinued on 12/15. Continue fluconazole. Stool studies/cultures as below. (2) Metabolic encephalopathy Plan: Metabolic encephalopathy has been resolved. Likely secondary to sepsis. Continue to monitor neurological status. (3) Diarrhea Plan: Patient is status post EGD colonoscopy on 11/29. GI and general surgery following. Status post flexible sigmoidoscopy with biopsy on 12/13/16 Follow-up biopsy. Stool studies are for Cryptosporidium, Giardia, culture negative for enteric pathogens. Stool AFB negative, mycobacterial culture pending If everything is negative diarrhea likely secondary to colitis. Continue with Lactobacillus acidophilus, rifaximin, Lomotil. (4) FELICITAS (acute kidney injury) Plan: Improved. Continue to monitor BMP. (5) Hypothermia Plan: Patient has intermittent episodes of hypothermia. Status post aggressive warming with Bear hugger. Random cortisol 47 and likely to be adrenal insufficiency. (6) Hyperglycemia Plan: Blood sugars remained mildly elevated. Hemoglobin A1c pending. 12/17 blood sugars trending up. Patient is a known diabetic with diabetes type 2 which is controlled with a hemoglobin A1c of 6.2. I will place the patient on SSI with insulin NovoLog and monitor Accu-Cheks. (7) Anemia Plan: Status post infusion of 3 units of PRBCs 11/28, 11/29, 11/30 Hemoglobin remains low, 7's-8's Continue to monitor hemoglobin and transfuse as needed for hemoglobin is 7 or symptomatic anemia. No active signs of bleeding. HGB dropped to 6.9 on 12/21/16. ill transfuse 2U PRBC. 12/22 HGB 11.3 after 2 U prbc. Monitor H/H and transfuse as need. (8) Constipation Plan: Initially the patient presented with constipation and what seemed to be overflow diarrhea. Diarrhea as above. (9) Hypocalcemia Hypomagnesemia Hypophosphatemia Severe protein calorie malnutrition Refeeding sdr Vit D deficiency. Start ergo calciferol q7 days start vit D/Ca daily supplement Plan: Likely secondary to malnutrition. Protein corrected calcium low at 8.3, received IV calcium. Monitor lytes and continue to replace. Replace mag by IV 11/17 12/18 monitor electrolytes Cash Register Servicer also following (10) Leukopenia Plan: Intermittent episodes of decreased WBC count. This likely secondary to sepsis and acute infection and illness. Continue to monitor CBC with differential. (11) Sacral decubitus wounds 2 back wounds on sacrum cleanse sacral wounds gently with normal saline and apply optifoam every 3 days and as need for saturation or dislodgment Specialty bed ordered. turn and reposition patient q2 hrs. Try to limit bedpan use and try to get patient to the bedside commode, spoke with PT 12/22 and patient is able to go to bedside commode. Prophylaxis. PPI DVT prophylaxis. SCDs, no chemotherapy prophylaxis due to anemia. Discussed with the patient, family at bedside, nurse, PT and wound care nurse Problem Qualifiers (1) Diarrhea: Qualified Code: A09 - Diarrhea of presumed infectious origin (2) Anemia: Mary Chiang MD Dec 22, 2016 11:01
[2016-12-22 12:00] VITALS: BP 135/84; PULSE 91; RESP 20; TEMP 97.8; O2SAT 98
[2016-12-22] MEDS: MAGNESIUM SULFATE 1 GM PREMIX 100 ML IV SCH ×2 (12:16→13:23)
[2016-12-22] MEDS: FERROUS SULFATE 325 MG (65 MG ELEMENTAL IRON) TAB PO SCH ×2 (12:18→17:58)
[2016-12-22] MEDS: CALCIUM/VITAMIN D 250 MG/125 U TAB PO SCH ×2 (12:18→22:49)
[2016-12-22] MEDS: ERGOCALCIFEROL (VIT D2) 50,000 UNIT CAP PO SCH (13:23)
[2016-12-22 16:00] VITALS: BP 132/84; PULSE 90; RESP 18; TEMP 97.1; O2SAT 99
[2016-12-22 20:00] VITALS: BP 137/87; PULSE 93; RESP 18; TEMP 98.4; O2SAT 99
[2016-12-22] MEDS: MESALAMINE 1000 MG SUPP RECTAL SCH (21:00)
[2016-12-23] VITALS: BP 143/87; PULSE 91; RESP 18; TEMP 97.7; O2SAT 100
[2016-12-23] MEDS: DIPHENOXYLATE/ATROPINE 2.5 MG/0.025 MG TAB PO SCH ×4 (02:00→20:45)
[2016-12-23] MEDS: CHLORHEXIDINE GLUCONATE 2 % 1 PACK (2 CLOTHS) TOP SCH (04:00)
[2016-12-23] MEDS: ACETAMINOPHEN/HYDROcodone 325 MG/5 MG TAB PO PRN ×4 (04:10→20:44)
[2016-12-23 04:16] VITALS: BP 139/83; PULSE 99; RESP 16; TEMP 98.1; O2SAT 99
[2016-12-23] MEDS: metroNIDAZOLE 250 MG TAB PO SCH ×3 (06:27→20:44)
[2016-12-23] MEDS: LACTOBACILLUS ACIDOPHILUS TAB PO SCH ×3 (06:27→20:45)
[2016-12-23] MEDS: INSULIN ASPART SUPPLEMENTAL SCALE SQ SCH ×4 (06:28→21:00)
[2016-12-23 08:25] VITALS: BP 137/86; PULSE 95; RESP 20; TEMP 98; O2SAT 98
[2016-12-23] MEDS: CHOLESTYRAMINE 4 GM PACKET PO SCH (08:40)
[2016-12-23] MEDS: CALCIUM CARBONATE 500 MG CHEWABLE TAB CHEW SCH ×2 (08:40→20:44)
[2016-12-23] MEDS: CALCIUM/VITAMIN D 250 MG/125 U TAB PO SCH ×2 (08:41→20:44)
[2016-12-23] MEDS: LIPASE/PROTEASE/AMYLASE (24,000/76,000/120,000) CAP PO SCH ×3 (08:41→17:11)
[2016-12-23] MEDS: RIFAXIMIN 550 MG TAB PO SCH ×2 (08:41→20:44)
[2016-12-23] MEDS: POTASSIUM PHOSPHATE MONOBASIC 500 MG TAB PO SCH ×2 (08:41→20:45)
[2016-12-23] MEDS: PANTOPRAZOLE SODIUM 40 MG VIAL IV SCH (08:41)
[2016-12-23] MEDS: NYSTATIN 100,000 U/GM PWD 15 GM BTL TOPICAL SCH (08:43)
[2016-12-23] MEDS: SODIUM CHLORIDE 0.9% FLUSH 5 ML FLUSH IV FLUSH SCH ×2 (08:57→21:00)
[2016-12-23] MEDS: LACTATED RINGER'S 1000 ML INJ 1,000 ML IV SCH ×3 (09:24→20:43)
[2016-12-23] MEDS: FERROUS SULFATE 325 MG (65 MG ELEMENTAL IRON) TAB PO SCH ×2 (11:40→15:53)
[2016-12-23 12:01] VITALS: BP 134/82; PULSE 93; RESP 18; TEMP 98.1; O2SAT 99
--- NOTE | 2016-12-23 14:07 | HHI.PR ---
Subjective Remarks Says he has pain .Says she is trying to get to the commode however he had diarrhea again and says he also has incontinence now as he doesn't have much controll. No fever. Reports chills. Eating well. Objective Vitals Vital Signs Date Time Temp Pulse Resp B/P Pulse Ox O2 Delivery O2 Flow Rate FiO2 12/23/16 12:01 98.1 93 18 134/82 99 12/23/16 08:25 98.0 95 20 137/86 98 12/23/16 04:16 98.1 99 16 139/83 99 12/23/16 00:00 97.7 91 18 143/87 100 12/22/16 23:49 18 12/22/16 20:00 98.4 93 18 137/87 99 12/22/16 16:00 97.1 90 18 132/84 99 I/O 12/22/16 12/22/16 12/22/16 12/23/16 12/23/16 12/23/16 07:00 15:00 23:00 07:00 15:00 23:00 Intake Total 600 ml Output Total 400 ml 450 ml 300 ml 800 ml Balance -400 ml 150 ml -300 ml -800 ml Intake Oral 600 ml Output Urine Total 400 ml 450 ml 300 ml 800 ml # Voids 2 3 # Bowel Movements 1 2 3 Result Diagram: 12/22/1672712/22/1628 Imaging Last Impressions Chest X-Ray 12/14/16 0000 Signed Impressions: Service Date/Time: December 18:44 - CONCLUSION: Improved right lower lobe infiltrate. Kan Borges MD Head CT 12/02/16 0000 Signed Impressions: Service Date/Time: Friday, December 02, 2016 14:39 - CONCLUSION: No acute disease. Kan Altamirano MD Abdomen/Pelvis CT 11/28/16 0054 Signed Impressions: Service Date/Time: Monday, November 28, 2016 01:47 - CONCLUSION: Severe constipation. No acute CT findings. Kan Lyons MD Objective Remarks GENERAL: Critically ill, cachectic middle-aged male, lying in bed. Pale. HEENT: Sunken bitemporal bones. Atraumatic. Pupils equal, round and reactive. Mucous membranes are dry. NECK: Trachea is midline. There is no JVD. CHEST: Equal chest rise. Clear to auscultation. CARDIOVASCULAR: Regular rhythm. No appreciable murmurs. ABDOMEN: Small healed scar subxiphoid from prior PEG tube placement. Diffuse tenderness to palpation. There is no guarding. No hepatosplenomegaly. MUSCULOSKELETAL: Distal pulses 2+. No pitting Edema. NEUROLOGICAL: Alert, awake, oriented. Follows commands in all 4 extremities. SKIN: sacral decubitus wounds. Rash on perineal area. A/P Problem List: (1) Severe sepsis ICD Code: A41.9 Status: Resolved (2) Metabolic encephalopathy ICD Code: G93.41 Status: Resolved (3) Diarrhea ICD Code: R19.7 Status: Resolved (4) FELICITAS (acute kidney injury) ICD Code: N17.9 Status: Resolved (5) Hypothermia ICD Code: T68.XXXA Status: Acute (6) Hyperglycemia ICD Code: R73.9 Status: Acute (7) Anemia ICD Code: D64.9 Status: Chronic (8) Constipation ICD Code: K59.00 Status: Resolved (9) Hypocalcemia ICD Code: E83.51 Status: Resolved (10) Leukopenia ICD Code: D72.819 Status: Acute Assessment and Plan This is a 41-year-old male with a history of failure to thrive who presents with multiple acute on chronic medical problems including kidney injury, septic shock, diarrhea, possible colitis. He is very critically ill this time, and descending obstruction has to be ruled out. We will admit him to the ICU and monitor him carefully. We will empirically cover him with antibiotics and await culture data. GI, general surgery and ID following (1) Severe sepsis Plan: This is a 41-year-old male with a history of failure to thrive who presents with multiple acute and chronic medical problems including kidney injury, septic shock, diarrhea and possible colitis. The patient was very critically ill at the time of presentation and was admitted to the intensive care unit. GI and general surgery were consulted and are following. Unclear etiology, possible pneumonia due to infiltrate found on chest x-ray. Chest x-ray obtained on 12/14/16, shows improved right lower lobe infiltrate. Sepsis syndrome improving with improved leukopenia, tachycardia still persistent heart rate in the 100s. IVF. Antibiotics as per ID. Flagyl discontinued on 12/15. Continue fluconazole. Stool studies/cultures as below. (2) Metabolic encephalopathy Plan: Metabolic encephalopathy has been resolved. Likely secondary to sepsis. Continue to monitor neurological status. (3) Diarrhea Plan: Patient is status post EGD colonoscopy on 11/29. GI and general surgery following. Status post flexible sigmoidoscopy with biopsy on 12/13/16 Follow-up biopsy. Stool studies are for Cryptosporidium, Giardia, culture negative for enteric pathogens. Stool AFB negative, mycobacterial culture pending If everything is negative diarrhea likely secondary to colitis. Continue with Lactobacillus acidophilus, rifaximin, Lomotil. (4) FELICITAS (acute kidney injury) Plan: Improved. Continue to monitor BMP. (5) Hypothermia Plan: Patient has intermittent episodes of hypothermia. Status post aggressive warming with Bear hugger. Random cortisol 47 and likely to be adrenal insufficiency. (6) Hyperglycemia Plan: Blood sugars remained mildly elevated. Hemoglobin A1c pending. 12/17 blood sugars trending up. Patient is a known diabetic with diabetes type 2 which is controlled with a hemoglobin A1c of 6.2. I will place the patient on SSI with insulin NovoLog and monitor Accu-Cheks. (7) Anemia Plan: Status post infusion of 3 units of PRBCs 11/28, 11/29, 11/30 Hemoglobin remains low, 7's-8's Continue to monitor hemoglobin and transfuse as needed for hemoglobin is 7 or symptomatic anemia. No active signs of bleeding. HGB dropped to 6.9 on 12/21/16. ill transfuse 2U PRBC. 12/22 HGB 11.3 after 2 U prbc. Monitor H/H and transfuse as need. (8) Constipation Plan: Initially the patient presented with constipation and what seemed to be overflow diarrhea. Diarrhea as above. (9) Hypocalcemia Hypomagnesemia Hypophosphatemia Severe protein calorie malnutrition Refeeding sdr Vit D deficiency. Start ergo calciferol q7 days start vit D/Ca daily supplement Plan: Likely secondary to malnutrition. Protein corrected calcium low at 8.3, received IV calcium. Monitor lytes and continue to replace. Replace mag by IV 11/17 12/18 monitor electrolytes Director Of Public Safety also following (10) Leukopenia Plan: Intermittent episodes of decreased WBC count. This likely secondary to sepsis and acute infection and illness. Continue to monitor CBC with differential. (11) Sacral decubitus wounds 2 back wounds on sacrum cleanse sacral wounds gently with normal saline and apply optifoam every 3 days and as need for saturation or dislodgment Specialty bed ordered. turn and reposition patient q2 hrs. Try to limit bedpan use and try to get patient to the bedside commode, spoke with PT 12/22 and patient is able to go to bedside commode. Prophylaxis. PPI DVT prophylaxis. SCDs, no chemotherapy prophylaxis due to anemia. Discussed with the patient, family at bedside, nurse, PT and wound care nurse Problem Qualifiers (1) Diarrhea: Qualified Code: A09 - Diarrhea of presumed infectious origin (2) Anemia: Mary Chiang MD Dec 23, 2016 14:07
[2016-12-23] MEDS ORDERED: PETROLATUM 30 GM TUBE TOPICAL PRN (14:15)
[2016-12-23 16:05] VITALS: BP 130/80; PULSE 88; RESP 18; TEMP 98.1; O2SAT 98
[2016-12-23] MEDS: MESALAMINE 1000 MG SUPP RECTAL SCH (20:45)
[2016-12-23 20:51] VITALS: BP 138/86; PULSE 103; RESP 19; TEMP 97.8; O2SAT 100
[2016-12-24] MEDS: NYSTATIN 100,000 U/GM PWD 15 GM BTL TOPICAL SCH ×3 (00:14→21:31)
[2016-12-24 00:51] VITALS: BP 122/74; PULSE 93; RESP 18; TEMP 97.6; O2SAT 100
[2016-12-24] MEDS: DIPHENOXYLATE/ATROPINE 2.5 MG/0.025 MG TAB PO SCH ×4 (01:01→21:30)
[2016-12-24] MEDS: ACETAMINOPHEN/HYDROcodone 325 MG/5 MG TAB PO PRN ×6 (01:02→21:30)
[2016-12-24] MEDS: CHLORHEXIDINE GLUCONATE 2 % 1 PACK (2 CLOTHS) TOP SCH (03:37)
[2016-12-24 04:39] VITALS: BP 148/88; PULSE 99; RESP 18; TEMP 98.5; O2SAT 98
[2016-12-24] MEDS: metroNIDAZOLE 250 MG TAB PO SCH ×3 (05:29→21:30)
[2016-12-24] MEDS: LACTOBACILLUS ACIDOPHILUS TAB PO SCH ×3 (05:29→21:29)
[2016-12-24] MEDS: LACTATED RINGER'S 1000 ML INJ 1,000 ML IV SCH ×2 (05:31→17:53)
[2016-12-24] MEDS: INSULIN ASPART SUPPLEMENTAL SCALE SQ SCH ×4 (06:22→21:00)
[2016-12-24] MEDS: CHOLESTYRAMINE 4 GM PACKET PO SCH (07:43)
[2016-12-24] MEDS: CALCIUM CARBONATE 500 MG CHEWABLE TAB CHEW SCH ×2 (07:44→21:30)
[2016-12-24] MEDS: PANTOPRAZOLE SODIUM 40 MG VIAL IV SCH (07:44)
[2016-12-24] MEDS: CALCIUM/VITAMIN D 250 MG/125 U TAB PO SCH ×2 (07:45→21:30)
[2016-12-24] MEDS: LIPASE/PROTEASE/AMYLASE (24,000/76,000/120,000) CAP PO SCH ×3 (07:45→17:53)
[2016-12-24] MEDS: RIFAXIMIN 550 MG TAB PO SCH ×2 (07:45→21:30)
[2016-12-24] MEDS: POTASSIUM PHOSPHATE MONOBASIC 500 MG TAB PO SCH ×2 (07:45→21:30)
[2016-12-24] MEDS: SODIUM CHLORIDE 0.9% FLUSH 5 ML FLUSH IV FLUSH SCH ×2 (07:46→21:32)
[2016-12-24 08:00] VITALS: BP 143/87; PULSE 89; RESP 18; TEMP 98.4; O2SAT 98
[2016-12-24 08:52] LABS: AUTOMATED NEUTROPHIL # 1.4 TH/MM3 (1.8-7.7); BASOPHIL # 0.1 TH/MM3 (0-0.2); BASOPHIL % 2.1 % (0.0-2.0); EOSINOPHIL # 0.2 TH/MM3 (0-0.4); EOSINOPHIL % 4.5 % (0.0-4.0); HEMATOCRIT 29.5 % (39.0-51.0); HEMO FLAGS DIFF FINAL; LYMPH % 39.1 % (9.0-44.0); LYMPHOCYTE # 1.4 TH/MM3 (1.0-4.8); MEAN CELL VOLUME 87.9 FL (80.0-100.0); MEAN CORPUSCULAR HEMOGLOBIN 29.6 PG (27.0-34.0); MEAN CORPUSCULAR HGB CONC 33.6 % (32.0-36.0); MONO % 14.6 % (0.0-8.0); NEUT % 39.7 % (16.0-70.0); PLATELET COUNT 153 TH/MM3 (150-450); RED BLOOD COUNT 3.36 MIL/MM3 (4.50-5.90); RED CELL DISTRIBUTION WIDTH 20.7 % (11.6-17.2); WHITE BLOOD COUNT 3.5 TH/MM3 (4.0-11.0)
[2016-12-24 09:18] LABS: BICARBONATE 28.8 MEQ/L (21.0-32.0); MAGNESIUM 1.4 MG/DL (1.5-2.5); POTASSIUM 4.8 MEQ/L (3.5-5.1)
[2016-12-24 12:00] VITALS: BP 80/53; PULSE 107; RESP 18; TEMP 97.5; O2SAT 95
[2016-12-24] MEDS: FERROUS SULFATE 325 MG (65 MG ELEMENTAL IRON) TAB PO SCH ×2 (12:09→17:53)
[2016-12-24 16:00] VITALS: BP 143/92; PULSE 101; RESP 18; TEMP 97.5; O2SAT 95
--- NOTE | 2016-12-24 17:10 | HHI.PR ---
Subjective Remarks Seen earlier today. Denies cp, sob, n/v. Has diarrhea, however improving and says he is able to make it to the bedside commode. Perineal rash is not bothering much. Has a new matress. Pain is fairly controlled. No n/v/d/c. Objective Vitals Vital Signs Date Time Temp Pulse Resp B/P Pulse Ox O2 Delivery O2 Flow Rate FiO2 12/24/16 12:00 97.5 107 18 80/53 95 12/24/16 08:00 98.4 89 18 143/87 98 12/24/16 04:39 98.5 99 18 148/88 98 12/24/16 00:51 97.6 93 18 122/74 100 12/23/16 20:51 97.8 103 19 138/86 100 I/O 12/23/16 12/23/16 12/23/16 12/24/16 12/24/16 12/24/16 07:00 15:00 23:00 07:00 15:00 23:00 Intake Total 600 ml 480 ml Output Total 800 ml 250 ml 400 ml 800 ml Balance -800 ml 350 ml -400 ml -320 ml Intake Oral 600 ml 480 ml Output Urine Total 800 ml 250 ml 400 ml 800 ml # Voids 3 1 # Bowel Movements 3 2 2 Result Diagram: 12/24/16 0814 12/24/16 0814 Imaging Last Impressions Chest X-Ray 12/14/16 0000 Signed Impressions: Service Date/Time: December 18:44 - CONCLUSION: Improved right lower lobe infiltrate. Kan Borges MD Head CT 12/02/16 0000 Signed Impressions: Service Date/Time: Friday, December 02, 2016 14:39 - CONCLUSION: No acute disease. Kan Altamirano MD Abdomen/Pelvis CT 11/28/16 0054 Signed Impressions: Service Date/Time: Monday, November 28, 2016 01:47 - CONCLUSION: Severe constipation. No acute CT findings. Kan Lyons MD Objective Remarks GENERAL: Critically ill, cachectic middle-aged male, lying in bed. Pale. HEENT: Sunken bitemporal bones. Atraumatic. Pupils equal, round and reactive. Mucous membranes are dry. NECK: Trachea is midline. There is no JVD. CHEST: Equal chest rise. Clear to auscultation. CARDIOVASCULAR: Regular rhythm. No appreciable murmurs. ABDOMEN: Small healed scar subxiphoid from prior PEG tube placement. Diffuse tenderness to palpation. There is no guarding. No hepatosplenomegaly. MUSCULOSKELETAL: Distal pulses 2+. No pitting Edema. NEUROLOGICAL: Alert, awake, oriented. Follows commands in all 4 extremities. SKIN: sacral decubitus wounds. Rash on perineal area. A/P Problem List: (1) Severe sepsis ICD Code: A41.9 Status: Resolved (2) Metabolic encephalopathy ICD Code: G93.41 Status: Resolved (3) Diarrhea ICD Code: R19.7 Status: Resolved (4) FELICITAS (acute kidney injury) ICD Code: N17.9 Status: Resolved (5) Hypothermia ICD Code: T68.XXXA Status: Acute (6) Hyperglycemia ICD Code: R73.9 Status: Acute (7) Anemia ICD Code: D64.9 Status: Chronic (8) Constipation ICD Code: K59.00 Status: Resolved (9) Hypocalcemia ICD Code: E83.51 Status: Resolved (10) Leukopenia ICD Code: D72.819 Status: Acute Assessment and Plan This is a 41-year-old male with a history of failure to thrive who presents with multiple acute on chronic medical problems including kidney injury, septic shock, diarrhea, possible colitis. He is very critically ill this time, and descending obstruction has to be ruled out. We will admit him to the ICU and monitor him carefully. We will empirically cover him with antibiotics and await culture data. GI, general surgery and ID following (1) Severe sepsis Plan: This is a 41-year-old male with a history of failure to thrive who presents with multiple acute and chronic medical problems including kidney injury, septic shock, diarrhea and possible colitis. The patient was very critically ill at the time of presentation and was admitted to the intensive care unit. GI and general surgery were consulted and are following. Unclear etiology, possible pneumonia due to infiltrate found on chest x-ray. Chest x-ray obtained on 12/14/16, shows improved right lower lobe infiltrate. Sepsis syndrome improving with improved leukopenia, tachycardia still persistent heart rate in the 100s. IVF. Antibiotics as per ID. Flagyl discontinued on 12/15. Continue fluconazole. Stool studies/cultures as below. (2) Metabolic encephalopathy Plan: Metabolic encephalopathy has been resolved. Likely secondary to sepsis. Continue to monitor neurological status. (3) Diarrhea Plan: Patient is status post EGD colonoscopy on 11/29. GI and general surgery following. Status post flexible sigmoidoscopy with biopsy on 12/13/16 Follow-up biopsy. Stool studies are for Cryptosporidium, Giardia, culture negative for enteric pathogens. Stool AFB negative, mycobacterial culture pending If everything is negative diarrhea likely secondary to colitis. Continue with Lactobacillus acidophilus, rifaximin, Lomotil. (4) FELICITAS (acute kidney injury) Plan: Improved. Continue to monitor BMP. (5) Hypothermia Plan: Patient has intermittent episodes of hypothermia. Status post aggressive warming with Bear hugger. Random cortisol 47 and likely to be adrenal insufficiency. (6) Hyperglycemia Plan: Blood sugars remained mildly elevated. Hemoglobin A1c pending. 12/17 blood sugars trending up. Patient is a known diabetic with diabetes type 2 which is controlled with a hemoglobin A1c of 6.2. I will place the patient on SSI with insulin NovoLog and monitor Accu-Cheks. (7) Anemia Plan: Status post infusion of 3 units of PRBCs 11/28, 11/29, 11/30 Hemoglobin remains low, 7's-8's Continue to monitor hemoglobin and transfuse as needed for hemoglobin is 7 or symptomatic anemia. No active signs of bleeding. HGB dropped to 6.9 on 12/21/16. ill transfuse 2U PRBC. 12/22 HGB 11.3 after 2 U prbc. Monitor H/H and transfuse as need. (8) Constipation Plan: Initially the patient presented with constipation and what seemed to be overflow diarrhea. Diarrhea as above. (9) Hypocalcemia Hypomagnesemia Hypophosphatemia Severe protein calorie malnutrition Refeeding sdr Vit D deficiency. Start ergocalciferol q7 days start vit D/Ca daily supplement Plan: Likely secondary to malnutrition. Monitor lytes and continue to replace po and by IV Sales Vice President also following (10) Leukopenia Plan: Intermittent episodes of decreased WBC count. This likely secondary to sepsis and acute infection and illness. Continue to monitor CBC with differential. (11) Sacral decubitus wounds 2 back wounds on sacrum cleanse sacral wounds gently with normal saline and apply optifoam every 3 days and as need for saturation or dislodgment Specialty bed ordered. turn and reposition patient q2 hrs. Try to limit bedpan use and try to get patient to the bedside commode, spoke with PT 12/22 and patient is able to go to bedside commode. Prophylaxis. PPI DVT prophylaxis. SCDs, no chemotherapy prophylaxis due to anemia. Discussed with the patient, nurse. Problem Qualifiers (1) Diarrhea: Qualified Code: A09 - Diarrhea of presumed infectious origin (2) Anemia: Mary Chiang MD Dec 24, 2016 17:10
[2016-12-24] MEDS: NYSTATIN 100,000 U/GM PWD 15 GM BTL TOPICAL PRN (18:02)
[2016-12-24] MEDS: MAGNESIUM SULFATE 1 GM PREMIX 100 ML IV SCH ×2 (18:13→20:06)
[2016-12-24 20:00] VITALS: BP 143/89; PULSE 111; RESP 20; TEMP 99.3; O2SAT 97
[2016-12-24] MEDS: MESALAMINE 1000 MG SUPP RECTAL SCH (21:00)
[2016-12-25] VITALS: BP 127/83; PULSE 86; RESP 13; TEMP 96.7; O2SAT 98
[2016-12-25] MEDS: DIPHENOXYLATE/ATROPINE 2.5 MG/0.025 MG TAB PO SCH ×4 (01:34→21:42)
[2016-12-25] MEDS: ACETAMINOPHEN/HYDROcodone 325 MG/5 MG TAB PO PRN ×4 (01:34→15:15)
[2016-12-25 04:00] VITALS: BP 137/90; PULSE 70; RESP 18; TEMP 95.9; O2SAT 99
[2016-12-25] MEDS: CHLORHEXIDINE GLUCONATE 2 % 1 PACK (2 CLOTHS) TOP SCH (04:00)
[2016-12-25] MEDS: metroNIDAZOLE 250 MG TAB PO SCH ×3 (04:57→21:46)
[2016-12-25] MEDS: LACTOBACILLUS ACIDOPHILUS TAB PO SCH ×3 (04:57→21:42)
[2016-12-25] MEDS: LACTATED RINGER'S 1000 ML INJ 1,000 ML IV SCH ×3 (04:58→23:30)
[2016-12-25] MEDS: INSULIN ASPART SUPPLEMENTAL SCALE SQ SCH ×4 (07:00→21:00)
[2016-12-25 07:39] LABS: AUTOMATED NEUTROPHIL # 1.6 TH/MM3 (1.8-7.7); BASOPHIL # 0.1 TH/MM3 (0-0.2); BASOPHIL % 2.2 % (0.0-2.0); EOSINOPHIL # 0.2 TH/MM3 (0-0.4); EOSINOPHIL % 4.2 % (0.0-4.0); HEMATOCRIT 29.6 % (39.0-51.0); HEMO FLAGS DIFF FINAL; LYMPH % 34.2 % (9.0-44.0); LYMPHOCYTE # 1.3 TH/MM3 (1.0-4.8); MEAN CELL VOLUME 88.2 FL (80.0-100.0); MEAN CORPUSCULAR HEMOGLOBIN 29.2 PG (27.0-34.0); MEAN CORPUSCULAR HGB CONC 33.1 % (32.0-36.0); MONO % 15.4 % (0.0-8.0); PLATELET COUNT 151 TH/MM3 (150-450); RED BLOOD COUNT 3.35 MIL/MM3 (4.50-5.90); RED CELL DISTRIBUTION WIDTH 21.3 % (11.6-17.2); WHITE BLOOD COUNT 3.7 TH/MM3 (4.0-11.0)
[2016-12-25 08:00] VITALS: BP 137/86; PULSE 93; RESP 18; TEMP 98.8; O2SAT 98
[2016-12-25 08:01] LABS: ALKALINE PHOSPHATASE 105 U/L (45-117); ALT (GPT) 7 U/L (12-78); ANION GAP 5 MEQ/L (5-15); AST (GOT) 17 U/L (15-37); BICARBONATE 28.6 MEQ/L (21.0-32.0); BLOOD UREA NITROGEN 7 MG/DL (7-18); CHLORIDE 105 MEQ/L (98-107); GLOMERULAR FILTRATION RATE 181 ML/MIN (>89); MAGNESIUM 1.7 MG/DL (1.5-2.5); POTASSIUM 4.8 MEQ/L (3.5-5.1); SODIUM (NA) 139 MEQ/L (136-145); TOTAL BILIRUBIN ADULT 0.4 MG/DL (0.2-1.0)
[2016-12-25] MEDS: POTASSIUM PHOSPHATE MONOBASIC 500 MG TAB PO SCH ×2 (08:46→21:42)
[2016-12-25] MEDS: RIFAXIMIN 550 MG TAB PO SCH ×2 (08:46→21:42)
[2016-12-25] MEDS: LIPASE/PROTEASE/AMYLASE (24,000/76,000/120,000) CAP PO SCH ×3 (08:46→17:33)
[2016-12-25] MEDS: CHOLESTYRAMINE 4 GM PACKET PO SCH (08:46)
[2016-12-25] MEDS: PANTOPRAZOLE SODIUM 40 MG VIAL IV SCH (08:47)
[2016-12-25] MEDS: CALCIUM/VITAMIN D 250 MG/125 U TAB PO SCH ×2 (08:47→21:42)
[2016-12-25] MEDS: CALCIUM CARBONATE 500 MG CHEWABLE TAB CHEW SCH ×2 (08:47→21:42)
[2016-12-25] MEDS: SODIUM CHLORIDE 0.9% FLUSH 5 ML FLUSH IV FLUSH SCH ×2 (08:48→21:42)
[2016-12-25] MEDS: NYSTATIN 100,000 U/GM PWD 15 GM BTL TOPICAL SCH ×2 (08:48→21:45)
[2016-12-25] MEDS: NYSTATIN 100,000 U/GM PWD 15 GM BTL TOPICAL PRN (08:48)
--- NOTE | 2016-12-25 11:18 | PQ ---
Physician Query Response Document PATIENT: MONSERRAT ZAMORANO : 1975 ADMIT DATE: 11/28/2016 3:38 AM DISCH DATE: RESPONDING PROVIDER #: [email or web address] QUERY TEXT: Skin Ulcer Type and Severity SACRAL DECUBITUS WOUNDS - is documented in the Medical Record. Please specify the stage and severity such as: -- Stage 1 -- Stage 2 -- Stage 3 -- Stage 4 -- Unstageable Severity: -- Limited to breakdown of skin -- With fat layer exposure -- With necrosis of muscle -- With necrosis of bone -- Other, please specify The patient's Clinical Indicators include: 11/28/16 Admission Diagnosis PSA, Septic Shock PER 12/22/16 PROGRESS NOTE: ASSESSMENT AND PLAN STATES - Sacral decubitus wounds 2 back wounds on sacrum cleanse sacral wounds gently with normal saline and apply optifoam every 3 da ys and as need for saturation or dislodgment Specialty bed ordered. turn and reposition patient q2 hrs. Try to limit bedpan use and try to get patient to the bedside commode, spoke with PT 2/10 and patient is able to go to bedside commode. Query created by: Della Melton on 12/25/2016 9:31 AM RESPONSE TEXT: Stage 2 sccral decubitus wounds Electronically signed by: Mary Chiang MD 12/25/2016 11:14 AM
[2016-12-25 12:31] VITALS: BP 137/89; PULSE 95; RESP 19; TEMP 98.2; O2SAT 98
[2016-12-25] MEDS: FERROUS SULFATE 325 MG (65 MG ELEMENTAL IRON) TAB PO SCH ×2 (12:32→15:15)
--- NOTE | 2016-12-25 14:15 | HHI.PR ---
Subjective Remarks Seen ship manager today. Patient says she has chills. Still with diarrhea. Rash on his groin doesn't bother him much. Pain is controlled by meds. Eating well. Gained some weight. Encouraged for PO intake. Objective Vitals Vital Signs Date Time Temp Pulse Resp B/P Pulse Ox O2 Delivery O2 Flow Rate FiO2 12/25/16 12:31 98.2 95 19 137/89 98 12/25/16 08:00 98.8 93 18 137/86 98 12/25/16 04:00 95.9 70 18 137/90 99 12/25/16 00:00 96.7 86 13 127/83 98 12/24/16 20:00 99.3 111 20 143/89 97 12/24/16 16:00 97.5 101 18 143/92 95 I/O 12/24/16 12/24/16 12/24/16 12/25/16 12/25/16 12/25/16 07:00 15:00 23:00 07:00 15:00 23:00 Intake Total 480 ml 100 ml 1100 ml 765 ml Output Total 400 ml 800 ml 300 ml 500 ml Balance -400 ml -320 ml -200 ml 1100 ml 265 ml Intake Oral 480 ml 100 ml IV Total 1100 ml 765 ml Output Urine Total 400 ml 800 ml 300 ml 500 ml # Bowel Movements 2 3 2 Result Diagram: 12/25/1670312/25/16703 Objective Remarks GENERAL: Critically ill, cachectic middle-aged male, lying in bed. Pale. HEENT: Sunken bitemporal bones. Atraumatic. Pupils equal, round and reactive. Mucous membranes are dry. NECK: Trachea is midline. There is no JVD. CHEST: Equal chest rise. Clear to auscultation. CARDIOVASCULAR: Regular rhythm. No appreciable murmurs. ABDOMEN: Small healed scar subxiphoid from prior PEG tube placement. Diffuse tenderness to palpation. There is no guarding. No hepatosplenomegaly. MUSCULOSKELETAL: Distal pulses 2+. No pitting Edema. NEUROLOGICAL: Alert, awake, oriented. Follows commands in all 4 extremities. SKIN: sacral decubitus wounds. Rash on perineal area. A/P Problem List: (1) Severe sepsis ICD Code: A41.9 Status: Resolved (2) Metabolic encephalopathy ICD Code: G93.41 Status: Resolved (3) Diarrhea ICD Code: R19.7 Status: Resolved (4) FELICITAS (acute kidney injury) ICD Code: N17.9 Status: Resolved (5) Hypothermia ICD Code: T68.XXXA Status: Acute (6) Hyperglycemia ICD Code: R73.9 Status: Acute (7) Anemia ICD Code: D64.9 Status: Chronic (8) Constipation ICD Code: K59.00 Status: Resolved (9) Hypocalcemia ICD Code: E83.51 Status: Resolved (10) Leukopenia ICD Code: D72.819 Status: Acute Assessment and Plan This is a 41-year-old male with a history of failure to thrive who presents with multiple acute on chronic medical problems including kidney injury, septic shock, diarrhea, possible colitis. He is very critically ill this time, and descending obstruction has to be ruled out. We will admit him to the ICU and monitor him carefully. We will empirically cover him with antibiotics and await culture data. GI, general surgery and ID following (1) Severe sepsis Plan: This is a 41-year-old male with a history of failure to thrive who presents with multiple acute and chronic medical problems including kidney injury, septic shock, diarrhea and possible colitis. The patient was very critically ill at the time of presentation and was admitted to the intensive care unit. GI and general surgery were consulted and are following. Unclear etiology, possible pneumonia due to infiltrate found on chest x-ray. Chest x-ray obtained on 12/14/16, shows improved right lower lobe infiltrate. Sepsis syndrome improving with improved leukopenia, tachycardia still persistent heart rate in the 100s. IVF. Antibiotics as per ID. Flagyl discontinued on 12/15. Continue fluconazole. Stool studies/cultures as below. (2) Metabolic encephalopathy Plan: Metabolic encephalopathy has been resolved. Likely secondary to sepsis. Continue to monitor neurological status. (3) Diarrhea Plan: Patient is status post EGD colonoscopy on 11/29. GI and general surgery following. Status post flexible sigmoidoscopy with biopsy on 12/13/16 Follow-up biopsy. Stool studies are for Cryptosporidium, Giardia, culture negative for enteric pathogens. Stool AFB negative, mycobacterial culture pending If everything is negative diarrhea likely secondary to colitis. Continue with Lactobacillus acidophilus, rifaximin, Lomotil. (4) FELICITAS (acute kidney injury) Plan: Improved. Continue to monitor BMP. (5) Hypothermia Plan: Patient has intermittent episodes of hypothermia. Status post aggressive warming with Bear hugger. Random cortisol 47 and likely to be adrenal insufficiency. (6) Hyperglycemia Plan: Blood sugars remained mildly elevated. Hemoglobin A1c pending. 12/17 blood sugars trending up. Patient is a known diabetic with diabetes type 2 which is controlled with a hemoglobin A1c of 6.2. I will place the patient on SSI with insulin NovoLog and monitor Accu-Cheks. (7) Anemia Plan: Status post infusion of 3 units of PRBCs 11/28, 11/29, 11/30 Hemoglobin remains low, 7's-8's Continue to monitor hemoglobin and transfuse as needed for hemoglobin is 7 or symptomatic anemia. No active signs of bleeding. HGB dropped to 6.9 on 12/21/16. ill transfuse 2U PRBC. 12/22 HGB 11.3 after 2 U prbc. Monitor H/H and transfuse as need. (8) Constipation Plan: Initially the patient presented with constipation and what seemed to be overflow diarrhea. Diarrhea as above. (9) Hypocalcemia Hypomagnesemia Hypophosphatemia Severe protein calorie malnutrition Refeeding sdr Vit D deficiency. Start ergocalciferol q7 days start vit D/Ca daily supplement Plan: Likely secondary to malnutrition. Monitor lytes and continue to replace po and by IV Sub Prior also following (10) Leukopenia Plan: Intermittent episodes of decreased WBC count. This likely secondary to sepsis and acute infection and illness. Continue to monitor CBC with differential. (11) Sacral decubitus wounds 2 back wounds on sacrum cleanse sacral wounds gently with normal saline and apply optifoam every 3 days and as need for saturation or dislodgment Specialty bed ordered. turn and reposition patient q2 hrs. Try to limit bedpan use and try to get patient to the bedside commode, spoke with PT 12/22 and patient is able to go to bedside commode. Prophylaxis. PPI DVT prophylaxis. SCDs, no chemotherapy prophylaxis due to anemia. Discussed with the patient, nurse. Problem Qualifiers (1) Diarrhea: Qualified Code: A09 - Diarrhea of presumed infectious origin (2) Anemia: Mary Chiang MD Dec 25, 2016 14:15
[2016-12-25 15:35] VITALS: BP 126/80; PULSE 87; RESP 18; RESP 20; TEMP 98.5; O2SAT 97
[2016-12-25 20:00] VITALS: BP 140/94; PULSE 91; RESP 15; TEMP 97; O2SAT 98
[2016-12-25] MEDS: MESALAMINE 1000 MG SUPP RECTAL SCH (21:00)
[2016-12-26] VITALS: BP 121/87; PULSE 98; RESP 20; TEMP 97.8; O2SAT 97
[2016-12-26 04:00] VITALS: BP 122/90; PULSE 110; RESP 18; TEMP 98.8; O2SAT 99
[2016-12-26] MEDS: CHLORHEXIDINE GLUCONATE 2 % 1 PACK (2 CLOTHS) TOP SCH (04:15)
[2016-12-26] MEDS: metroNIDAZOLE 250 MG TAB PO SCH ×3 (06:10→21:23)
[2016-12-26] MEDS: DIPHENOXYLATE/ATROPINE 2.5 MG/0.025 MG TAB PO SCH ×4 (06:10→21:22)
[2016-12-26] MEDS: LACTOBACILLUS ACIDOPHILUS TAB PO SCH ×3 (06:10→21:22)
[2016-12-26] MEDS: INSULIN ASPART SUPPLEMENTAL SCALE SQ SCH ×4 (06:12→21:00)
[2016-12-26 08:18] VITALS: BP 149/86; PULSE 95; RESP 16; TEMP 99; O2SAT 96
[2016-12-26] MEDS: SODIUM CHLORIDE 0.9% FLUSH 5 ML FLUSH IV FLUSH SCH ×2 (09:00→21:00)
[2016-12-26] MEDS: NYSTATIN 100,000 U/GM PWD 15 GM BTL TOPICAL SCH ×2 (09:00→21:42)
[2016-12-26] MEDS: LACTATED RINGER'S 1000 ML INJ 1,000 ML IV SCH ×2 (09:08→18:07)
[2016-12-26] MEDS: CHOLESTYRAMINE 4 GM PACKET PO SCH (09:09)
[2016-12-26] MEDS: LIPASE/PROTEASE/AMYLASE (24,000/76,000/120,000) CAP PO SCH ×3 (09:10→18:06)
[2016-12-26] MEDS: PANTOPRAZOLE SODIUM 40 MG VIAL IV SCH (09:10)
[2016-12-26] MEDS: CALCIUM CARBONATE 500 MG CHEWABLE TAB CHEW SCH ×2 (09:10→21:22)
[2016-12-26] MEDS: ACETAMINOPHEN/HYDROcodone 325 MG/5 MG TAB PO PRN ×2 (09:11→16:38)
[2016-12-26] MEDS: POTASSIUM PHOSPHATE MONOBASIC 500 MG TAB PO SCH ×2 (09:11→21:22)
[2016-12-26] MEDS: CALCIUM/VITAMIN D 250 MG/125 U TAB PO SCH ×2 (09:11→21:22)
[2016-12-26] MEDS: RIFAXIMIN 550 MG TAB PO SCH ×2 (09:11→21:22)
--- NOTE | 2016-12-26 10:30 | HHI.PR ---
Subjective Remarks No fever or chills overnight. Denies cp, sob. Having moderate diarrhea, no blood in it. Rash is improving. Says she is eating well. Objective Vitals Vital Signs Date Time Temp Pulse Resp B/P Pulse Ox O2 Delivery O2 Flow Rate FiO2 12/26/16 08:18 99.0 95 16 149/86 96 12/26/16 04:00 98.8 110 18 122/90 99 12/26/16 00:00 97.8 98 20 121/87 97 12/25/16 20:00 97.0 91 15 140/94 98 12/25/16 15:35 98.5 87 18 126/80 97 12/25/16 12:31 98.2 95 19 137/89 98 I/O 12/25/16 12/25/16 12/25/16 12/26/16 12/26/16 12/26/16 07:00 15:00 23:00 07:00 15:00 23:00 Intake Total 1100 ml 765 ml 450 ml Output Total 500 ml 1582 ml 1001 ml Balance 1100 ml 265 ml -1132 ml -1001 ml Intake Oral 450 ml IV Total 1100 ml 765 ml Output Urine Total 500 ml 1580 ml 1000 ml Stool Total 2 ml 1 ml # Bowel Movements 2 4 Result Diagram: 12/25/16 0704 12/25/16 0704 Imaging Last Impressions Chest X-Ray 12/14/16 0000 Signed Impressions: Service Date/Time: December 18:44 - CONCLUSION: Improved right lower lobe infiltrate. Kan Borges MD Head CT 12/02/16 0000 Signed Impressions: Service Date/Time: Friday, December 02, 2016 14:39 - CONCLUSION: No acute disease. Kan Altamirano MD Abdomen/Pelvis CT 11/28/16 0054 Signed Impressions: Service Date/Time: Monday, November 28, 2016 01:47 - CONCLUSION: Severe constipation. No acute CT findings. Kan Lyons MD Objective Remarks GENERAL: Critically ill, cachectic middle-aged male, lying in bed. Pale. HEENT: Sunken bitemporal bones. Atraumatic. Pupils equal, round and reactive. Mucous membranes are dry. NECK: Trachea is midline. There is no JVD. CHEST: Equal chest rise. Clear to auscultation. CARDIOVASCULAR: Regular rhythm. No appreciable murmurs. ABDOMEN: Small healed scar subxiphoid from prior PEG tube placement. Diffuse tenderness to palpation. There is no guarding. No hepatosplenomegaly. MUSCULOSKELETAL: Distal pulses 2+. No pitting Edema. NEUROLOGICAL: Alert, awake, oriented. Follows commands in all 4 extremities. SKIN: sacral decubitus wounds. Rash on perineal area. A/P Problem List: (1) Severe sepsis ICD Code: A41.9 Status: Resolved (2) Metabolic encephalopathy ICD Code: G93.41 Status: Resolved (3) Diarrhea ICD Code: R19.7 Status: Resolved (4) FELICITAS (acute kidney injury) ICD Code: N17.9 Status: Resolved (5) Hypothermia ICD Code: T68.XXXA Status: Acute (6) Hyperglycemia ICD Code: R73.9 Status: Acute (7) Anemia ICD Code: D64.9 Status: Chronic (8) Constipation ICD Code: K59.00 Status: Resolved (9) Hypocalcemia ICD Code: E83.51 Status: Resolved (10) Leukopenia ICD Code: D72.819 Status: Acute Assessment and Plan This is a 41-year-old male with a history of failure to thrive who presents with multiple acute on chronic medical problems including kidney injury, septic shock, diarrhea, possible colitis. He is very critically ill this time, and descending obstruction has to be ruled out. We will admit him to the ICU and monitor him carefully. We will empirically cover him with antibiotics and await culture data. GI, general surgery and ID following (1) Severe sepsis Plan: This is a 41-year-old male with a history of failure to thrive who presents with multiple acute and chronic medical problems including kidney injury, septic shock, diarrhea and possible colitis. The patient was very critically ill at the time of presentation and was admitted to the intensive care unit. GI and general surgery were consulted and are following. Unclear etiology, possible pneumonia due to infiltrate found on chest x-ray. Chest x-ray obtained on 12/14/16, shows improved right lower lobe infiltrate. Sepsis syndrome improving with improved leukopenia, tachycardia still persistent heart rate in the 100s. IVF. Antibiotics as per ID. Flagyl discontinued on 12/15. Continue fluconazole. Stool studies/cultures as below. (2) Metabolic encephalopathy Plan: Metabolic encephalopathy has been resolved. Likely secondary to sepsis. Continue to monitor neurological status. (3) Diarrhea Plan: Patient is status post EGD colonoscopy on 11/29. GI and general surgery following. Status post flexible sigmoidoscopy with biopsy on 12/13/16 Follow-up biopsy. Stool studies are for Cryptosporidium, Giardia, culture negative for enteric pathogens. Stool AFB negative, mycobacterial culture pending If everything is negative diarrhea likely secondary to colitis. Continue with Lactobacillus acidophilus, rifaximin, Lomotil. (4) FELICITAS (acute kidney injury) Plan: Improved. Continue to monitor BMP. (5) Hypothermia Plan: Patient has intermittent episodes of hypothermia. Status post aggressive warming with Bear hugger. Random cortisol 47 and likely to be adrenal insufficiency. (6) Hyperglycemia Plan: Blood sugars remained mildly elevated. Hemoglobin A1c pending. 12/17 blood sugars trending up. Patient is a known diabetic with diabetes type 2 which is controlled with a hemoglobin A1c of 6.2. I will place the patient on SSI with insulin NovoLog and monitor Accu-Cheks. (7) Anemia Plan: Status post infusion of 3 units of PRBCs 11/28, 11/29, 11/30 Hemoglobin remains low, 7's-8's Continue to monitor hemoglobin and transfuse as needed for hemoglobin is 7 or symptomatic anemia. No active signs of bleeding. HGB dropped to 6.9 on 12/21/16. ill transfuse 2U PRBC. 12/22 HGB 11.3 after 2 U prbc. Monitor H/H and transfuse as need. (8) Constipation Plan: Initially the patient presented with constipation and what seemed to be overflow diarrhea. Diarrhea as above. (9) Hypocalcemia Hypomagnesemia Hypophosphatemia Severe protein calorie malnutrition Refeeding sdr Vit D deficiency. Start ergocalciferol q7 days start vit D/Ca daily supplement Plan: Likely secondary to malnutrition. Monitor lytes and continue to replace po and by IV Mapping Pilot also following (10) Leukopenia Plan: Intermittent episodes of decreased WBC count. This likely secondary to sepsis and acute infection and illness. Continue to monitor CBC with differential. (11) Sacral decubitus wounds 2 back wounds on sacrum cleanse sacral wounds gently with normal saline and apply optifoam every 3 days and as need for saturation or dislodgment Specialty bed ordered. turn and reposition patient q2 hrs. Try to limit bedpan use and try to get patient to the bedside commode, spoke with PT 12/22 and patient is able to go to bedside commode. Prophylaxis. PPI DVT prophylaxis. SCDs, no chemotherapy prophylaxis due to anemia. Discussed with the patient, nurse. Problem Qualifiers (1) Diarrhea: Qualified Code: A09 - Diarrhea of presumed infectious origin (2) Anemia: Mary Chiang MD Dec 26, 2016 10:30
[2016-12-26] MEDS: FERROUS SULFATE 325 MG (65 MG ELEMENTAL IRON) TAB PO SCH ×2 (11:25→16:28)
[2016-12-26 11:56] VITALS: BP 130/79; PULSE 100; RESP 16; TEMP 98.8; O2SAT 100
[2016-12-26 16:48] VITALS: BP 99/71; PULSE 99; RESP 16; TEMP 99.5; O2SAT 96
[2016-12-26 20:00] VITALS: BP 158/109; PULSE 102; RESP 20; TEMP 97.1; O2SAT 98
[2016-12-26] MEDS: MESALAMINE 1000 MG SUPP RECTAL SCH (21:00)
[2016-12-26] MEDS: NYSTATIN 100,000 U/GM PWD 15 GM BTL TOPICAL PRN (21:23)
[2016-12-27] VITALS: BP 145/91; PULSE 108; RESP 20; TEMP 98.9; O2SAT 97
[2016-12-27] MEDS: DIPHENOXYLATE/ATROPINE 2.5 MG/0.025 MG TAB PO SCH ×4 (02:25→21:21)
[2016-12-27 04:00] VITALS: BP 114/80; PULSE 99; RESP 20; TEMP 98.6; O2SAT 96
[2016-12-27] MEDS: CHLORHEXIDINE GLUCONATE 2 % 1 PACK (2 CLOTHS) TOP SCH (04:00)
[2016-12-27] MEDS: ACETAMINOPHEN/HYDROcodone 325 MG/5 MG TAB PO PRN ×4 (04:01→19:37)
[2016-12-27] MEDS: LACTATED RINGER'S 1000 ML INJ 1,000 ML IV SCH ×2 (04:03→15:17)
[2016-12-27] MEDS: metroNIDAZOLE 250 MG TAB PO SCH ×3 (06:06→21:21)
[2016-12-27] MEDS: LACTOBACILLUS ACIDOPHILUS TAB PO SCH ×3 (06:06→21:25)
[2016-12-27] MEDS: INSULIN ASPART SUPPLEMENTAL SCALE SQ SCH ×4 (06:07→21:22)
[2016-12-27] MEDS: CALCIUM CARBONATE 500 MG CHEWABLE TAB CHEW SCH ×2 (08:51→21:20)
[2016-12-27] MEDS: CHOLESTYRAMINE 4 GM PACKET PO SCH (08:51)
[2016-12-27] MEDS: POTASSIUM PHOSPHATE MONOBASIC 500 MG TAB PO SCH ×2 (08:51→21:21)
[2016-12-27] MEDS: PANTOPRAZOLE SODIUM 40 MG VIAL IV SCH (08:52)
[2016-12-27] MEDS: CALCIUM/VITAMIN D 250 MG/125 U TAB PO SCH ×2 (08:52→21:21)
[2016-12-27] MEDS: RIFAXIMIN 550 MG TAB PO SCH ×2 (08:52→21:21)
[2016-12-27] MEDS: LIPASE/PROTEASE/AMYLASE (24,000/76,000/120,000) CAP PO SCH ×3 (08:52→17:33)
[2016-12-27] MEDS: NYSTATIN 100,000 U/GM PWD 15 GM BTL TOPICAL SCH ×2 (08:54→21:00)
[2016-12-27] MEDS: SODIUM CHLORIDE 0.9% FLUSH 5 ML FLUSH IV FLUSH SCH ×2 (08:55→21:00)
[2016-12-27 09:15] VITALS: BP 141/88; PULSE 98; RESP 16; TEMP 97.7; O2SAT 97
[2016-12-27] MEDS ORDERED: PERMETHRIN 5% CREAM 60 GM TOPICAL ONE (10:00)
[2016-12-27] MEDS: FERROUS SULFATE 325 MG (65 MG ELEMENTAL IRON) TAB PO SCH ×2 (12:07→16:39)
--- NOTE | 2016-12-27 12:07 | HHI.PR ---
Subjective Remarks Patient is in nad. Denies any cp, sob . He is still with profuse diarrhea. C/o chills. No fevers overnight. No n/v/. Rash is not painful. Eating well. Objective Vitals Vital Signs Date Time Temp Pulse Resp B/P Pulse Ox O2 Delivery O2 Flow Rate FiO2 12/27/16 09:15 97.7 98 16 141/88 97 12/27/16 04:00 98.6 99 20 114/80 96 12/27/16 00:00 98.9 108 20 145/91 97 12/26/16 20:00 97.1 102 20 158/109 98 12/26/16 16:48 99.5 99 16 99/71 96 I/O 12/26/16 12/26/16 12/26/16 12/27/16 12/27/16 12/27/16 07:00 15:00 23:00 07:00 15:00 23:00 Intake Total 480 ml Output Total 1001 ml 800 ml 601 ml 1150 ml Balance -1001 ml -320 ml -601 ml -1150 ml Intake Oral 480 ml Output Urine Total 1000 ml 800 ml 600 ml 1150 ml Stool Total 1 ml 1 ml # Bowel Movements 3 4 2 Result Diagram: 12/25/16 0704 12/25/16 0704 Imaging Last Impressions Chest X-Ray 12/14/16 0000 Signed Impressions: Service Date/Time: December 18:44 - CONCLUSION: Improved right lower lobe infiltrate. Kan Borges MD Head CT 12/02/16 0000 Signed Impressions: Service Date/Time: Friday, December 02, 2016 14:39 - CONCLUSION: No acute disease. Kan Altamirano MD Abdomen/Pelvis CT 11/28/16 0054 Signed Impressions: Service Date/Time: Monday, November 28, 2016 01:47 - CONCLUSION: Severe constipation. No acute CT findings. Kan Lyons MD Objective Remarks GENERAL: Critically ill, cachectic middle-aged male, lying in bed. Pale. HEENT: Sunken bitemporal bones. Atraumatic. Pupils equal, round and reactive. Mucous membranes are dry. NECK: Trachea is midline. There is no JVD. CHEST: Equal chest rise. Clear to auscultation. CARDIOVASCULAR: Regular rhythm. No appreciable murmurs. ABDOMEN: Small healed scar subxiphoid from prior PEG tube placement. Diffuse tenderness to palpation. There is no guarding. No hepatosplenomegaly. MUSCULOSKELETAL: Distal pulses 2+. No pitting Edema. NEUROLOGICAL: Alert, awake, oriented. Follows commands in all 4 extremities. SKIN: sacral decubitus wounds. Rash on perineal area. A/P Problem List: (1) Severe sepsis ICD Code: A41.9 Status: Resolved (2) Metabolic encephalopathy ICD Code: G93.41 Status: Resolved (3) Diarrhea ICD Code: R19.7 Status: Resolved (4) FELICITAS (acute kidney injury) ICD Code: N17.9 Status: Resolved (5) Hypothermia ICD Code: T68.XXXA Status: Acute (6) Hyperglycemia ICD Code: R73.9 Status: Acute (7) Anemia ICD Code: D64.9 Status: Chronic (8) Constipation ICD Code: K59.00 Status: Resolved (9) Hypocalcemia ICD Code: E83.51 Status: Resolved (10) Leukopenia ICD Code: D72.819 Status: Acute Assessment and Plan This is a 41-year-old male with a history of failure to thrive who presents with multiple acute on chronic medical problems including kidney injury, septic shock, diarrhea, possible colitis. He is very critically ill this time, and descending obstruction has to be ruled out. We will admit him to the ICU and monitor him carefully. We will empirically cover him with antibiotics and await culture data. GI, general surgery and ID following (1) Severe sepsis. Resolved Plan: This is a 41-year-old male with a history of failure to thrive who presents with multiple acute and chronic medical problems including kidney injury, septic shock, diarrhea and possible colitis. The patient was very critically ill at the time of presentation and was admitted to the intensive care unit. GI and general surgery were consulted and are following. Unclear etiology, possible pneumonia due to infiltrate found on chest x-ray. Chest x-ray obtained on 12/14/16, shows improved right lower lobe infiltrate. Sepsis syndrome improving with improved leukopenia, tachycardia still persistent heart rate in the 100s. IVF. Antibiotics as per ID. Patient with leighann esophagitis, treated Continue flagyl per Dr Nunez. Stool studies/cultures as below. (2) Metabolic encephalopathy Plan: Metabolic encephalopathy has been resolved. Likely secondary to sepsis. Continue to monitor neurological status. (3) Diarrhea Plan: Patient is status post EGD colonoscopy on 11/29. GI and general surgery following. Status post flexible sigmoidoscopy with biopsy on 12/13/16 Follow-up biopsy. Stool studies are for Cryptosporidium, Giardia, culture negative for enteric pathogens. Stool AFB negative, mycobacterial culture NTD If everything is negative diarrhea likely secondary to colitis. Continue with Lactobacillus acidophilus, rifaximin, Lomotil. (4) FELICITAS (acute kidney injury) Plan: Improved. Continue to monitor BMP. (5) Hypothermia Plan: Patient has intermittent episodes of hypothermia. Status post aggressive warming with Bear hugger. Random cortisol 47 and likely to be adrenal insufficiency. (6) Hyperglycemia Plan: Blood sugars remained mildly elevated. Hemoglobin A1c pending. 12/17 blood sugars trending up. Patient is a known diabetic with diabetes type 2 which is controlled with a hemoglobin A1c of 6.2. I will place the patient on SSI with insulin NovoLog and monitor Accu-Cheks. (7) Anemia Plan: Status post infusion of 3 units of PRBCs 11/28, 11/29, 11/30 Hemoglobin remains low, 7's-8's Continue to monitor hemoglobin and transfuse as needed for hemoglobin is 7 or symptomatic anemia. No active signs of bleeding. HGB dropped to 6.9 on 12/21/16. ill transfuse 2U PRBC. 12/22 HGB 11.3 after 2 U prbc. Monitor H/H and transfuse as need. H/H stable . Continue ferrous sulfate. (8) Constipation Plan: Initially the patient presented with constipation and what seemed to be overflow diarrhea. Diarrhea as above. (9) Hypocalcemia Hypomagnesemia Hypophosphatemia Severe protein calorie malnutrition Refeeding sdr Vit D deficiency. Start ergocalciferol q7 days start vit D/Ca daily supplement Plan: Likely secondary to malnutrition. Monitor lytes and continue to replace po and by IV Steel Checker also following (10) Leukopenia Plan: Intermittent episodes of decreased WBC count. This likely secondary to sepsis and acute infection and illness. Continue to monitor CBC with differential. (11) Sacral decubitus wounds 2 back wounds on sacrum cleanse sacral wounds gently with normal saline and apply optifoam every 3 days and as need for saturation or dislodgment Specialty bed ordered. turn and reposition patient q2 hrs. Try to limit bedpan use and try to get patient to the bedside commode, spoke with PT 210 and patient is able to go to bedside commode. Prophylaxis. PPI DVT prophylaxis. SCDs, no chemotherapy prophylaxis due to anemia. Cognitive evaluation Discussed with the patient, nurse. Problem Qualifiers (1) Diarrhea: Qualified Code: A09 - Diarrhea of presumed infectious origin (2) Anemia: Mary Chiang MD Dec 27, 2016 12:07
[2016-12-27 13:15] VITALS: BP 135/88; PULSE 105; RESP 16; TEMP 97.5; O2SAT 98
[2016-12-27 17:35] VITALS: BP 153/95; PULSE 93; RESP 16; TEMP 97.8; O2SAT 98
[2016-12-27 20:00] VITALS: BP 154/99; PULSE 107; RESP 20; TEMP 97.7; O2SAT 98
[2016-12-27] MEDS: MESALAMINE 1000 MG SUPP RECTAL SCH (21:00)
[2016-12-28] VITALS: BP 130/84; PULSE 114; RESP 20; TEMP 97.7; O2SAT 98
[2016-12-28] MEDS: ACETAMINOPHEN/HYDROcodone 325 MG/5 MG TAB PO PRN ×4 (01:46→18:35)
[2016-12-28] MEDS: DIPHENOXYLATE/ATROPINE 2.5 MG/0.025 MG TAB PO SCH ×4 (01:46→22:08)
[2016-12-28] MEDS: LACTATED RINGER'S 1000 ML INJ 1,000 ML IV SCH ×3 (01:47→22:06)
[2016-12-28] MEDS: CHLORHEXIDINE GLUCONATE 2 % 1 PACK (2 CLOTHS) TOP SCH (03:54)
[2016-12-28 04:00] VITALS: BP 157/99; PULSE 106; RESP 20; TEMP 98.3; O2SAT 98
[2016-12-28] MEDS: LACTOBACILLUS ACIDOPHILUS TAB PO SCH ×3 (06:01→22:07)
[2016-12-28] MEDS: metroNIDAZOLE 250 MG TAB PO SCH ×3 (06:02→22:08)
[2016-12-28] MEDS: INSULIN ASPART SUPPLEMENTAL SCALE SQ SCH ×4 (06:03→21:00)
[2016-12-28 07:16] LABS: AUTOMATED NEUTROPHIL # 1.8 TH/MM3 (1.8-7.7); BASOPHIL # 0.1 TH/MM3 (0-0.2); BASOPHIL % 1.9 % (0.0-2.0); EOSINOPHIL # 0.2 TH/MM3 (0-0.4); EOSINOPHIL % 3.6 % (0.0-4.0); HEMATOCRIT 28.9 % (39.0-51.0); HEMO FLAGS DIFF FINAL; LYMPH % 39.1 % (9.0-44.0); LYMPHOCYTE # 1.7 TH/MM3 (1.0-4.8); MEAN CELL VOLUME 89.6 FL (80.0-100.0); MEAN CORPUSCULAR HGB CONC 33.5 % (32.0-36.0); MONO % 13.6 % (0.0-8.0); NEUT % 41.8 % (16.0-70.0); PLATELET COUNT 151 TH/MM3 (150-450); RED BLOOD COUNT 3.22 MIL/MM3 (4.50-5.90); RED CELL DISTRIBUTION WIDTH 21.1 % (11.6-17.2); WHITE BLOOD COUNT 4.3 TH/MM3 (4.0-11.0)
[2016-12-28 07:46] LABS: BICARBONATE 28.4 MEQ/L (21.0-32.0); MAGNESIUM 1.3 MG/DL (1.5-2.5); POTASSIUM 4.6 MEQ/L (3.5-5.1)
[2016-12-28 08:01] VITALS: BP 146/89; PULSE 96; RESP 18; TEMP 98.5; O2SAT 96
[2016-12-28] MEDS: PANTOPRAZOLE SODIUM 40 MG VIAL IV SCH (08:54)
[2016-12-28] MEDS: CALCIUM CARBONATE 500 MG CHEWABLE TAB CHEW SCH ×2 (08:54→22:08)
[2016-12-28] MEDS: CHOLESTYRAMINE 4 GM PACKET PO SCH (08:55)
[2016-12-28] MEDS: POTASSIUM PHOSPHATE MONOBASIC 500 MG TAB PO SCH ×2 (08:55→22:07)
[2016-12-28] MEDS: RIFAXIMIN 550 MG TAB PO SCH ×2 (08:55→22:08)
[2016-12-28] MEDS: NYSTATIN 100,000 U/GM PWD 15 GM BTL TOPICAL SCH ×2 (08:55→22:00)
[2016-12-28] MEDS: LIPASE/PROTEASE/AMYLASE (24,000/76,000/120,000) CAP PO SCH ×3 (08:55→17:04)
[2016-12-28] MEDS: CALCIUM/VITAMIN D 250 MG/125 U TAB PO SCH ×2 (08:55→22:08)
[2016-12-28] MEDS: SODIUM CHLORIDE 0.9% FLUSH 5 ML FLUSH IV FLUSH SCH ×2 (08:55→22:09)
--- NOTE | 2016-12-28 11:36 | HHI.PR ---
Subjective Remarks Patient is in nad. No n/v/d/c. Denies chest pain, sob,. Has profuse diarrhea. No fever or chills. Says he has bowel incontinence. Objective Vitals Vital Signs Date Time Temp Pulse Resp B/P Pulse Ox O2 Delivery O2 Flow Rate FiO2 12/28/16 08:01 98.5 96 18 146/89 96 12/28/16 04:00 98.3 106 20 157/99 98 12/28/16 00:00 97.7 114 20 130/84 98 12/27/16 20:00 97.7 107 20 154/99 98 12/27/16 17:35 97.8 93 16 153/95 98 12/27/16 13:15 97.5 105 16 135/88 98 I/O 12/27/16 12/27/16 12/27/16 12/28/16 12/28/16 12/28/16 07:00 15:00 23:00 07:00 15:00 23:00 Intake Total 480 ml 540 ml 920 ml Output Total 1150 ml 800 ml 900 ml 1000 ml 400 ml Balance -1150 ml -320 ml -360 ml -80 ml -400 ml Intake Oral 480 ml 240 ml 120 ml IV Total 300 ml 800 ml Output Urine Total 1150 ml 800 ml 900 ml 1000 ml 400 ml # Bowel Movements 2 5 0 Result Diagram: 12/28/16 0617 12/28/16 0617 Imaging Last Impressions Chest X-Ray 12/14/16 0000 Signed Impressions: Service Date/Time: December 18:44 - CONCLUSION: Improved right lower lobe infiltrate. Kan Borges MD Head CT 12/02/16 0000 Signed Impressions: Service Date/Time: Friday, December 02, 2016 14:39 - CONCLUSION: No acute disease. Kan Altamirano MD Abdomen/Pelvis CT 11/28/16 0054 Signed Impressions: Service Date/Time: Monday, November 28, 2016 01:47 - CONCLUSION: Severe constipation. No acute CT findings. Kan Lyons MD Objective Remarks GENERAL: Critically ill, cachectic middle-aged male, lying in bed. Pale. HEENT: Sunken bitemporal bones. Atraumatic. Pupils equal, round and reactive. Mucous membranes are dry. NECK: Trachea is midline. There is no JVD. CHEST: Equal chest rise. Clear to auscultation. CARDIOVASCULAR: Regular rhythm. No appreciable murmurs. ABDOMEN: Small healed scar subxiphoid from prior PEG tube placement. Diffuse tenderness to palpation. There is no guarding. No hepatosplenomegaly. MUSCULOSKELETAL: Distal pulses 2+. No pitting Edema. NEUROLOGICAL: Alert, awake, oriented. Follows commands in all 4 extremities. SKIN: sacral decubitus wounds. Rash on perineal area. A/P Problem List: (1) Severe sepsis ICD Code: A41.9 Status: Resolved (2) Metabolic encephalopathy ICD Code: G93.41 Status: Resolved (3) Diarrhea ICD Code: R19.7 Status: Resolved (4) FELICITAS (acute kidney injury) ICD Code: N17.9 Status: Resolved (5) Hypothermia ICD Code: T68.XXXA Status: Acute (6) Hyperglycemia ICD Code: R73.9 Status: Acute (7) Anemia ICD Code: D64.9 Status: Chronic (8) Constipation ICD Code: K59.00 Status: Resolved (9) Hypocalcemia ICD Code: E83.51 Status: Resolved (10) Leukopenia ICD Code: D72.819 Status: Acute Assessment and Plan This is a 41-year-old male with a history of failure to thrive who presents with multiple acute on chronic medical problems including kidney injury, septic shock, diarrhea, possible colitis. He is very critically ill this time, and descending obstruction has to be ruled out. We will admit him to the ICU and monitor him carefully. We will empirically cover him with antibiotics and await culture data. GI, general surgery and ID following (1) Severe sepsis. Resolved Plan: This is a 41-year-old male with a history of failure to thrive who presents with multiple acute and chronic medical problems including kidney injury, septic shock, diarrhea and possible colitis. The patient was very critically ill at the time of presentation and was admitted to the intensive care unit. GI and general surgery were consulted and are following. Unclear etiology, possible pneumonia due to infiltrate found on chest x-ray. Chest x-ray obtained on 12/14/16, shows improved right lower lobe infiltrate. Sepsis syndrome improving with improved leukopenia, tachycardia still persistent heart rate in the 100s. IVF. Antibiotics as per ID. Patient with leighann esophagitis, treated Continue flagyl per Dr Nunez. Stool studies/cultures as below. (2) Metabolic encephalopathy Plan: Metabolic encephalopathy has been resolved. Likely secondary to sepsis. Continue to monitor neurological status. (3) Diarrhea Plan: Patient is status post EGD colonoscopy on 11/29. GI and general surgery following. Status post flexible sigmoidoscopy with biopsy on 12/13/16 Follow-up biopsy. Stool studies are for Cryptosporidium, Giardia, culture negative for enteric pathogens. Stool AFB negative, mycobacterial culture NTD If everything is negative diarrhea likely secondary to colitis. Continue with Lactobacillus acidophilus, rifaximin, Lomotil. (4) FELICITAS (acute kidney injury) Plan: Improved. Continue to monitor BMP. (5) Hypothermia Plan: Patient has intermittent episodes of hypothermia. Status post aggressive warming with Bear hugger. Random cortisol 47 and likely to be adrenal insufficiency. (6) Hyperglycemia Plan: Blood sugars remained mildly elevated. Hemoglobin A1c pending. 12/17 blood sugars trending up. Patient is a known diabetic with diabetes type 2 which is controlled with a hemoglobin A1c of 6.2. I will place the patient on SSI with insulin NovoLog and monitor Accu-Cheks. (7) Anemia Plan: Status post infusion of 3 units of PRBCs 11/28, 11/29, 11/30 Hemoglobin remains low, 7's-8's Continue to monitor hemoglobin and transfuse as needed for hemoglobin is 7 or symptomatic anemia. No active signs of bleeding. HGB dropped to 6.9 on 12/21/16. ill transfuse 2U PRBC. 12/22 HGB 11.3 after 2 U prbc. Monitor H/H and transfuse as need. H/H stable . Continue ferrous sulfate. (8) Constipation Plan: Initially the patient presented with constipation and what seemed to be overflow diarrhea. Diarrhea as above. (9) Hypocalcemia Hypomagnesemia Hypophosphatemia Severe protein calorie malnutrition Refeeding sdr Vit D deficiency. Start ergocalciferol q7 days start vit D/Ca daily supplement Plan: Likely secondary to malnutrition. Monitor lytes and continue to replace po and by IV Store Keeper also following (10) Leukopenia Plan: Intermittent episodes of decreased WBC count. This likely secondary to sepsis and acute infection and illness. Continue to monitor CBC with differential. (11) Sacral decubitus wounds 2 back wounds on sacrum cleanse sacral wounds gently with normal saline and apply optifoam every 3 days and as need for saturation or dislodgment Specialty bed ordered. turn and reposition patient q2 hrs. Try to limit bedpan use and try to get patient to the bedside commode, spoke with PT 2/10 and patient is able to go to bedside commode. Prophylaxis. PPI DVT prophylaxis. SCDs, no chemotherapy prophylaxis due to anemia. Cognitive evaluation Discussed with the patient, nurse. Problem Qualifiers (1) Diarrhea: Qualified Code: A09 - Diarrhea of presumed infectious origin (2) Anemia: Mary Chiang MD Dec 28, 2016 11:35
[2016-12-28] MEDS: FERROUS SULFATE 325 MG (65 MG ELEMENTAL IRON) TAB PO SCH ×2 (11:43→17:04)
[2016-12-28 12:38] VITALS: BP 143/90; PULSE 98; RESP 18; TEMP 98.7; O2SAT 97
[2016-12-28 15:55] VITALS: BP 106/74; PULSE 118; RESP 19; TEMP 97.8; O2SAT 100
[2016-12-28 20:50] VITALS: BP 138/90; PULSE 106; RESP 18; TEMP 98; O2SAT 100
[2016-12-28] MEDS: MESALAMINE 1000 MG SUPP RECTAL SCH (21:00)
[2016-12-29 00:30] VITALS: BP 135/88; PULSE 105; RESP 18; TEMP 97.9; O2SAT 99
[2016-12-29] MEDS: DIPHENOXYLATE/ATROPINE 2.5 MG/0.025 MG TAB PO SCH ×4 (02:00→20:43)
[2016-12-29] MEDS: ACETAMINOPHEN/HYDROcodone 325 MG/5 MG TAB PO PRN ×5 (03:14→20:43)
[2016-12-29] MEDS: CHLORHEXIDINE GLUCONATE 2 % 1 PACK (2 CLOTHS) TOP SCH (04:00)
[2016-12-29 04:15] VITALS: BP 128/80; PULSE 106; RESP 18; TEMP 98.1; O2SAT 99
[2016-12-29] MEDS: LACTOBACILLUS ACIDOPHILUS TAB PO SCH ×3 (05:50→20:42)
[2016-12-29] MEDS: metroNIDAZOLE 250 MG TAB PO SCH ×3 (05:51→20:43)
[2016-12-29] MEDS: INSULIN ASPART SUPPLEMENTAL SCALE SQ SCH ×4 (05:56→22:00)
[2016-12-29 08:19] VITALS: BP 153/89; PULSE 91; RESP 18; TEMP 98.8; O2SAT 96
[2016-12-29] MEDS: RIFAXIMIN 550 MG TAB PO SCH ×2 (08:33→20:42)
[2016-12-29] MEDS: LACTATED RINGER'S 1000 ML INJ 1,000 ML IV SCH ×2 (08:33→16:30)
[2016-12-29] MEDS: CALCIUM CARBONATE 500 MG CHEWABLE TAB CHEW SCH ×2 (08:33→20:42)
[2016-12-29] MEDS: POTASSIUM PHOSPHATE MONOBASIC 500 MG TAB PO SCH ×2 (08:33→20:43)
[2016-12-29] MEDS: PANTOPRAZOLE SODIUM 40 MG VIAL IV SCH (08:34)
[2016-12-29] MEDS: LIPASE/PROTEASE/AMYLASE (24,000/76,000/120,000) CAP PO SCH ×3 (08:34→17:37)
[2016-12-29] MEDS: SODIUM CHLORIDE 0.9% FLUSH 5 ML FLUSH IV FLUSH SCH ×2 (08:34→21:00)
[2016-12-29] MEDS: CALCIUM/VITAMIN D 250 MG/125 U TAB PO SCH ×2 (08:34→20:42)
[2016-12-29] MEDS: CHOLESTYRAMINE 4 GM PACKET PO SCH (08:35)
[2016-12-29] MEDS: NYSTATIN 100,000 U/GM PWD 15 GM BTL TOPICAL SCH ×2 (09:00→20:47)
[2016-12-29 12:01] VITALS: BP 149/95; PULSE 93; RESP 18; TEMP 97.6; O2SAT 98
[2016-12-29] MEDS: ERGOCALCIFEROL (VIT D2) 50,000 UNIT CAP PO SCH (12:30)
[2016-12-29] MEDS: FERROUS SULFATE 325 MG (65 MG ELEMENTAL IRON) TAB PO SCH ×2 (12:30→16:29)
--- NOTE | 2016-12-29 14:03 | HHI.PR ---
Subjective Remarks Follow up diarrhea. Patient reports frequent loose stools. Achy pain from "feet up to shoulders". Objective Vitals Vital Signs Date Time Temp Pulse Resp B/P Pulse Ox O2 Delivery O2 Flow Rate FiO2 12/29/16 13:30 18 12/29/16 12:01 97.6 93 18 149/95 98 12/29/16 08:19 98.8 91 18 153/89 96 12/29/16 04:15 98.1 106 18 128/80 99 12/29/16 00:30 97.9 105 18 135/88 99 12/28/16 20:50 98.0 106 18 138/90 100 12/28/16 15:55 97.8 118 19 106/74 100 I/O 12/28/16 12/28/16 12/28/16 12/29/16 12/29/16 12/29/16 07:00 15:00 23:00 07:00 15:00 23:00 Intake Total 920 ml 240 ml 900 ml 1050 ml Output Total 1000 ml 1300 ml 400 ml 1200 ml 575 ml Balance -80 ml -1060 ml 500 ml -150 ml -575 ml Intake Oral 120 ml 240 ml 900 ml 1050 ml IV Total 800 ml Output Urine Total 1000 ml 1300 ml 400 ml 1200 ml 575 ml # Bowel Movements 0 3 2 1 Result Diagram: 12/28/1617 12/28/1617 Imaging Last Impressions Chest X-Ray 12/14/16 0000 Signed Impressions: Service Date/Time: December 18:44 - CONCLUSION: Improved right lower lobe infiltrate. Kan Borges MD Head CT 12/02/16 0000 Signed Impressions: Service Date/Time: Friday, December 02, 2016 14:39 - CONCLUSION: No acute disease. Kan Altamirano MD Abdomen/Pelvis CT 11/28/16 0054 Signed Impressions: Service Date/Time: Monday, November 28, 2016 01:47 - CONCLUSION: Severe constipation. No acute CT findings. Kan Lyons MD Objective Remarks General: Thin male in no acute distress. Heart: Regular rate and rhythm. No murmur. Lungs: Clear to auscultation bilaterally. No wheezes, rales, or rhonchi. Breathing is nonlabored. Abdomen: Soft, nontender, nondistended. Extremities: No lower extremity edema. Psych: Alert and oriented. Urinary Catheter: No Vascular Central Line Catheter: No A/P Problem List: (1) Severe sepsis ICD Code: A41.9 Status: Resolved (2) Metabolic encephalopathy ICD Code: G93.41 Status: Resolved (3) Diarrhea ICD Code: R19.7 Status: Resolved (4) FELICITAS (acute kidney injury) ICD Code: N17.9 Status: Resolved (5) Hypothermia ICD Code: T68.XXXA Status: Acute (6) Hyperglycemia ICD Code: R73.9 Status: Acute (7) Anemia ICD Code: D64.9 Status: Chronic (8) Constipation ICD Code: K59.00 Status: Resolved (9) Hypocalcemia ICD Code: E83.51 Status: Resolved (10) Leukopenia ICD Code: D72.819 Status: Acute Assessment and Plan 1. Severe sepsis secondary to GI source, possible pneumonia: Resolved. 2. Metabolic encephalopathy: Secondary to sepsis. Resolved. 3. Diarrhea: Stool studies are negative. Diarrhea likely secondary to colitis. Continue Lactinex, rifaximin, Lomotil. Appreciate GI recommendations. 4. Acute kidney injury: Improved. 5. Hypothermia: Intermittent episodes during this hospitalization. Likely secondary to adrenal insufficiency. 6. Hyperglycemia: Hemoglobin A1c 6.2. Monitor Accu-Cheks and cover with sliding scale insulin. 7. Anemia: Patient has received 3 units PRBCs during this hospitalization. He stable. 8. Electrolyte abnormalities: Likely secondary to malnutrition. Improved. 9. Leukopenia: Likely secondary to sepsis, acute infection/illness. Monitor labs. 10. Sacral decubitus ulcers: Continue wound care. Specialty bed ordered. Reposition patient every 2 hours. 11. GI prophylaxis: PPI. 12. DVT prophylaxis: SCDs. Avoid chemical prophylaxis secondary to anemia. Problem Qualifiers (1) Diarrhea: Qualified Code: A09 - Diarrhea of presumed infectious origin (2) Anemia: Te Pyle MD Dec 29, 2016 14:03
[2016-12-29 16:03] VITALS: BP 156/97; PULSE 88; RESP 18; TEMP 97.3; O2SAT 98
[2016-12-29 20:00] VITALS: BP 130/76; PULSE 101; RESP 17; TEMP 98.8; O2SAT 96
[2016-12-29] MEDS: MESALAMINE 1000 MG SUPP RECTAL SCH (21:00)
[2016-12-30 00:40] VITALS: BP 128/80; PULSE 89; RESP 18; TEMP 98.1; O2SAT 97
[2016-12-30] MEDS: LACTATED RINGER'S 1000 ML INJ 1,000 ML IV SCH ×3 (01:00→22:00)
[2016-12-30] MEDS: DIPHENOXYLATE/ATROPINE 2.5 MG/0.025 MG TAB PO SCH ×4 (01:56→22:42)
[2016-12-30] MEDS: ACETAMINOPHEN/HYDROcodone 325 MG/5 MG TAB PO PRN ×4 (01:56→16:27)
[2016-12-30] MEDS: CHLORHEXIDINE GLUCONATE 2 % 1 PACK (2 CLOTHS) TOP SCH (04:00)
[2016-12-30 06:00] VITALS: BP 120/88; PULSE 88; RESP 18; TEMP 98.3; O2SAT 98
[2016-12-30] MEDS: LACTOBACILLUS ACIDOPHILUS TAB PO SCH ×3 (06:17→22:35)
[2016-12-30] MEDS: metroNIDAZOLE 250 MG TAB PO SCH ×3 (06:17→22:41)
[2016-12-30] MEDS: INSULIN ASPART SUPPLEMENTAL SCALE SQ SCH ×4 (06:19→21:00)
[2016-12-30 08:00] VITALS: BP 154/89; PULSE 90; RESP 19; TEMP 96.7; O2SAT 99
[2016-12-30] MEDS: RIFAXIMIN 550 MG TAB PO SCH ×2 (08:37→22:35)
[2016-12-30] MEDS: CALCIUM/VITAMIN D 250 MG/125 U TAB PO SCH ×2 (08:38→22:35)
[2016-12-30] MEDS: CALCIUM CARBONATE 500 MG CHEWABLE TAB CHEW SCH ×2 (08:38→22:35)
[2016-12-30] MEDS: CHOLESTYRAMINE 4 GM PACKET PO SCH (08:39)
[2016-12-30] MEDS: POTASSIUM PHOSPHATE MONOBASIC 500 MG TAB PO SCH ×2 (08:39→22:35)
[2016-12-30] MEDS: LIPASE/PROTEASE/AMYLASE (24,000/76,000/120,000) CAP PO SCH ×3 (08:39→16:27)
[2016-12-30] MEDS: SODIUM CHLORIDE 0.9% FLUSH 5 ML FLUSH IV FLUSH SCH ×2 (08:40→21:00)
[2016-12-30] MEDS: PANTOPRAZOLE SODIUM 40 MG VIAL IV SCH (08:40)
[2016-12-30] MEDS: NYSTATIN 100,000 U/GM PWD 15 GM BTL TOPICAL SCH ×2 (09:00→21:00)
[2016-12-30 12:00] VITALS: BP 143/93; PULSE 77; RESP 18; TEMP 98.1; O2SAT 96
[2016-12-30] MEDS: FERROUS SULFATE 325 MG (65 MG ELEMENTAL IRON) TAB PO SCH ×2 (12:49→16:27)
--- NOTE | 2016-12-30 14:58 | HHI.PR ---
Subjective Remarks Follow-up hypomagnesemia, diarrhea. The patient is reporting "constant" loose stools and fecal incontinence. No nausea, vomiting. Objective Vitals Vital Signs Date Time Temp Pulse Resp B/P Pulse Ox O2 Delivery O2 Flow Rate FiO2 12/30/16 12:00 98.1 77 18 143/93 96 12/30/16 08:00 96.7 90 19 154/89 99 12/30/16 06:00 98.3 88 18 120/88 98 12/30/16 00:40 98.1 89 18 128/80 97 12/29/16 21:43 18 12/29/16 20:00 98.8 101 17 130/76 96 12/29/16 16:03 97.3 88 18 156/97 98 I/O 12/29/16 12/29/16 12/29/16 12/30/16 12/30/16 12/30/16 07:00 15:00 23:00 07:00 15:00 23:00 Intake Total 1050 ml 709 ml 840 ml 1000 ml Output Total 1200 ml 575 ml 400 ml 1200 ml Balance -150 ml 134 ml 440 ml -200 ml Intake Oral 1050 ml 840 ml 1000 ml IV Total 709 ml Output Urine Total 1200 ml 575 ml 400 ml 1200 ml # Voids 2 # Bowel Movements 2 1 10 8 Result Diagram: 12/28/1617 12/28/16 0617 Imaging Last Impressions Chest X-Ray 12/14/16 0000 Signed Impressions: Service Date/Time: December 18:44 - CONCLUSION: Improved right lower lobe infiltrate. Kan Borges MD Head CT 12/02/16 0000 Signed Impressions: Service Date/Time: Friday, December 02, 2016 14:39 - CONCLUSION: No acute disease. Kan Altamirano MD Abdomen/Pelvis CT 11/28/16 0054 Signed Impressions: Service Date/Time: Monday, November 28, 2016 01:47 - CONCLUSION: Severe constipation. No acute CT findings. Kan Lyons MD Objective Remarks General: Thin male in no acute distress. Heart: Regular rate and rhythm. No murmur. Lungs: Clear to auscultation bilaterally. No wheezes, rales, or rhonchi. Breathing is nonlabored. Abdomen: Soft, nontender, nondistended. Extremities: No lower extremity edema. Psych: Alert and oriented. Procedures 12/13/16 flexible sigmoidoscopy Urinary Catheter: No Vascular Central Line Catheter: No A/P Problem List: (1) Severe sepsis ICD Code: A41.9 Status: Resolved (2) Metabolic encephalopathy ICD Code: G93.41 Status: Resolved (3) Diarrhea ICD Code: R19.7 Status: Resolved (4) FELICITAS (acute kidney injury) ICD Code: N17.9 Status: Resolved (5) Hypothermia ICD Code: T68.XXXA Status: Acute (6) Hyperglycemia ICD Code: R73.9 Status: Acute (7) Anemia ICD Code: D64.9 Status: Chronic (8) Constipation ICD Code: K59.00 Status: Resolved (9) Hypocalcemia ICD Code: E83.51 Status: Resolved (10) Leukopenia ICD Code: D72.819 Status: Acute Assessment and Plan 1. Severe sepsis secondary to GI source, possible pneumonia: Resolved. 2. Metabolic encephalopathy: Secondary to sepsis. Resolved. 3. Diarrhea: Stool studies are negative. Diarrhea likely secondary to colitis. Continue Lactinex, rifaximin, Lomotil. Worsening. Re-consult GI. 4. Acute kidney injury: Improved. 5. Hypothermia: Intermittent episodes during this hospitalization. Likely secondary to adrenal insufficiency. 6. Hyperglycemia: Hemoglobin A1c 6.2. Monitor Accu-Cheks and cover with sliding scale insulin. 7. Anemia: Patient has received 3 units PRBCs during this hospitalization. He stable. 8. Electrolyte abnormalities: Likely secondary to malnutrition. Improved. 9. Leukopenia: Likely secondary to sepsis, acute infection/illness. Monitor labs. Improved. 10. Sacral decubitus ulcers: Continue wound care. Specialty bed ordered. Reposition patient every 2 hours. 11. GI prophylaxis: PPI. 12. DVT prophylaxis: SCDs. Avoid chemical prophylaxis secondary to anemia. Problem Qualifiers (1) Diarrhea: Qualified Code: A09 - Diarrhea of presumed infectious origin (2) Anemia: Te Pyle MD Dec 30, 2016 14:57
[2016-12-30 15:58] VITALS: BP 151/92; PULSE 78; RESP 18; TEMP 97.9; O2SAT 96
[2016-12-30 20:20] VITALS: BP 124/99; PULSE 110; RESP 18; TEMP 96.7; O2SAT 99
[2016-12-30] MEDS: MESALAMINE 1000 MG SUPP RECTAL SCH (21:00)
[2016-12-31 00:40] VITALS: BP 146/83; PULSE 105; RESP 18; TEMP 97.5; O2SAT 99
[2016-12-31] MEDS: DIPHENOXYLATE/ATROPINE 2.5 MG/0.025 MG TAB PO SCH ×4 (02:00→22:03)
[2016-12-31] MEDS: CHLORHEXIDINE GLUCONATE 2 % 1 PACK (2 CLOTHS) TOP SCH (04:00)
[2016-12-31 04:06] VITALS: BP 149/92; PULSE 99; RESP 20; TEMP 97.2; O2SAT 98
[2016-12-31] MEDS: metroNIDAZOLE 250 MG TAB PO SCH ×3 (05:42→22:03)
[2016-12-31] MEDS: ACETAMINOPHEN/HYDROcodone 325 MG/5 MG TAB PO PRN ×4 (05:42→18:35)
[2016-12-31] MEDS: LACTOBACILLUS ACIDOPHILUS TAB PO SCH ×3 (05:43→22:00)
[2016-12-31] MEDS: INSULIN ASPART SUPPLEMENTAL SCALE SQ SCH ×4 (05:57→21:00)
[2016-12-31 08:04] VITALS: BP 153/97; PULSE 91; RESP 18; TEMP 97.4; O2SAT 98
[2016-12-31 08:18] LABS: AUTOMATED NEUTROPHIL # 2.4 TH/MM3 (1.8-7.7); BASOPHIL # 0.1 TH/MM3 (0-0.2); EOSINOPHIL # 0.1 TH/MM3 (0-0.4); EOSINOPHIL % 2.9 % (0.0-4.0); HEMATOCRIT 30.4 % (39.0-51.0); HEMO FLAGS DIFF FINAL; LYMPH % 32.2 % (9.0-44.0); LYMPHOCYTE # 1.5 TH/MM3 (1.0-4.8); MEAN CELL VOLUME 89.6 FL (80.0-100.0); MEAN CORPUSCULAR HEMOGLOBIN 30.2 PG (27.0-34.0); MEAN CORPUSCULAR HGB CONC 33.7 % (32.0-36.0); MONO % 11.1 % (0.0-8.0); NEUT % 51.8 % (16.0-70.0); PLATELET COUNT 170 TH/MM3 (150-450); RED CELL DISTRIBUTION WIDTH 20.6 % (11.6-17.2); WHITE BLOOD COUNT 4.7 TH/MM3 (4.0-11.0)
[2016-12-31] MEDS: CALCIUM/VITAMIN D 250 MG/125 U TAB PO SCH ×2 (09:18→22:03)
[2016-12-31] MEDS: RIFAXIMIN 550 MG TAB PO SCH ×2 (09:19→22:03)
[2016-12-31] MEDS: CALCIUM CARBONATE 500 MG CHEWABLE TAB CHEW SCH ×2 (09:20→22:03)
[2016-12-31 09:21] LABS: MAGNESIUM 1.4 MG/DL (1.5-2.5); POTASSIUM 4.5 MEQ/L (3.5-5.1)
[2016-12-31] MEDS: LIPASE/PROTEASE/AMYLASE (24,000/76,000/120,000) CAP PO SCH ×3 (09:21→18:33)
[2016-12-31] MEDS: PANTOPRAZOLE SODIUM 40 MG VIAL IV SCH (09:22)
[2016-12-31] MEDS: SODIUM CHLORIDE 0.9% FLUSH 5 ML FLUSH IV FLUSH SCH ×2 (09:22→21:00)
[2016-12-31] MEDS: NYSTATIN 100,000 U/GM PWD 15 GM BTL TOPICAL SCH ×2 (09:25→21:00)
[2016-12-31] MEDS: POTASSIUM PHOSPHATE MONOBASIC 500 MG TAB PO SCH ×2 (09:52→22:03)
[2016-12-31 12:00] VITALS: BP 145/89; PULSE 86; RESP 18; TEMP 96.8; O2SAT 98
[2016-12-31] MEDS: FERROUS SULFATE 325 MG (65 MG ELEMENTAL IRON) TAB PO SCH ×2 (12:51→18:34)
[2016-12-31] MEDS: LACTATED RINGER'S 1000 ML INJ 1,000 ML IV SCH ×2 (13:11→18:00)
--- NOTE | 2016-12-31 13:38 | HHI.PR ---
Subjective Remarks Follow-up hypomagnesemia, diarrhea. Still with "aching pain" all over, about the same as yesterday. Diarrhea is less than yesterday. No chest pain, dyspnea. Objective Vitals Vital Signs Date Time Temp Pulse Resp B/P Pulse Ox O2 Delivery O2 Flow Rate FiO2 12/31/16 12:00 96.8 86 18 145/89 98 12/31/16 08:04 97.4 91 18 153/97 98 12/31/16 04:06 97.2 99 20 149/92 98 12/31/16 00:40 97.5 105 18 146/83 99 12/30/16 20:20 96.7 110 18 124/99 99 12/30/16 15:58 97.9 78 18 151/92 96 I/O 12/30/16 12/30/16 12/30/16 12/31/16 12/31/16 12/31/16 07:00 15:00 23:00 07:00 15:00 23:00 Intake Total 1000 ml 760 ml 5745 ml 667 ml Output Total 1200 ml 1800 ml 425 ml 825 ml Balance -200 ml -1040 ml 5320 ml -158 ml Intake Oral 1000 ml 760 ml 480 ml IV Total 5265 ml 667 ml Output Urine Total 1200 ml 1800 ml 425 ml 825 ml # Bowel Movements 8 2 1 Result Diagram: 12/31/16 0716 12/31/16 0716 Imaging Last Impressions Chest X-Ray 12/14/16 0000 Signed Impressions: Service Date/Time: December 18:44 - CONCLUSION: Improved right lower lobe infiltrate. Kan Borges MD Head CT 12/02/16 0000 Signed Impressions: Service Date/Time: Friday, December 02, 2016 14:39 - CONCLUSION: No acute disease. Kan Altamirano MD Abdomen/Pelvis CT 11/28/16 0054 Signed Impressions: Service Date/Time: Monday, November 28, 2016 01:47 - CONCLUSION: Severe constipation. No acute CT findings. Kan Lyons MD Objective Remarks General: Thin male in no acute distress. Heart: Regular rate and rhythm. No murmur. Lungs: Clear to auscultation bilaterally. No wheezes, rales, or rhonchi. Breathing is nonlabored. Abdomen: Soft, nontender, nondistended. Extremities: No lower extremity edema. Psych: Alert and oriented. Procedures 12/13/16 flexible sigmoidoscopy Urinary Catheter: No Vascular Central Line Catheter: No A/P Problem List: (1) Severe sepsis ICD Code: A41.9 Status: Resolved (2) Metabolic encephalopathy ICD Code: G93.41 Status: Resolved (3) Diarrhea ICD Code: R19.7 Status: Resolved (4) FELICITAS (acute kidney injury) ICD Code: N17.9 Status: Resolved (5) Hypothermia ICD Code: T68.XXXA Status: Acute (6) Hyperglycemia ICD Code: R73.9 Status: Acute (7) Anemia ICD Code: D64.9 Status: Chronic (8) Constipation ICD Code: K59.00 Status: Resolved (9) Hypocalcemia ICD Code: E83.51 Status: Resolved (10) Leukopenia ICD Code: D72.819 Status: Acute Assessment and Plan 1. Severe sepsis secondary to GI source, possible pneumonia: Resolved. 2. Metabolic encephalopathy: Secondary to sepsis. Resolved. 3. Diarrhea: Stool studies are negative. Diarrhea likely secondary to colitis. Continue Lactinex, rifaximin, Lomotil. Had worsened yesterday, somewhat better today. Re-consult GI. 4. Acute kidney injury: Improved. 5. Hypothermia: Intermittent episodes during this hospitalization. Likely secondary to adrenal insufficiency. 6. Hyperglycemia: Hemoglobin A1c 6.2. Monitor Accu-Cheks and cover with sliding scale insulin. 7. Anemia: Patient has received 3 units PRBCs during this hospitalization. He stable. 8. Electrolyte abnormalities: Likely secondary to malnutrition. Improved. 9. Leukopenia: Likely secondary to sepsis, acute infection/illness. Monitor labs. Improved. 10. Sacral decubitus ulcers: Continue wound care. Specialty bed ordered. Reposition patient every 2 hours. 11. GI prophylaxis: PPI. 12. DVT prophylaxis: SCDs. Avoid chemical prophylaxis secondary to anemia. 13. Hypomagnesemia: Supplement magnesium. Recheck in the morning. 14. Hypertension: BP has been elevated. Add lisinopril. Problem Qualifiers (1) Diarrhea: Qualified Code: A09 - Diarrhea of presumed infectious origin (2) Anemia: Te Pyle MD Dec 31, 2016 13:38
[2016-12-31] MEDS: MAGNESIUM SULFATE 1 GM PREMIX 100 ML IV SCH ×2 (14:12→15:38)
[2016-12-31] MEDS: LISINOPRIL 5 MG TAB PO SCH (15:38)
[2016-12-31 16:00] VITALS: BP_SYST 148; BP_DIAS 104; BP_DIAS 86; PULSE 71; PULSE 86; RESP 18; TEMP 96.6; TEMP 97.4; O2SAT 96
--- NOTE | 2016-12-31 16:22 | HHI.GIFU ---
Subjective Remarks Reconsulted for diarrhea. Pt resting in bed. States he continues to have intermittent abdominal cramping and diarrhea. No bleeding. (Jolly Restrepo) Objective Vitals I&O Vital Signs Date Time Temp Pulse Resp B/P Pulse Ox O2 Delivery O2 Flow Rate FiO2 12/31/16 12:00 96.8 86 18 145/89 98 12/31/16 08:04 97.4 91 18 153/97 98 12/31/16 04:06 97.2 99 20 149/92 98 12/31/16 00:40 97.5 105 18 146/83 99 12/30/16 20:20 96.7 110 18 124/99 99 I/O 12/30/16 12/30/16 12/30/16 12/31/16 12/31/16 12/31/16 07:00 15:00 23:00 07:00 15:00 23:00 Intake Total 1000 ml 760 ml 5745 ml 667 ml Output Total 1200 ml 1800 ml 425 ml 825 ml Balance -200 ml -1040 ml 5320 ml -158 ml Intake Oral 1000 ml 760 ml 480 ml IV Total 5265 ml 667 ml Output Urine Total 1200 ml 1800 ml 425 ml 825 ml # Bowel Movements 8 2 1 Laboratory Laboratory Tests Test 12/31/16 07:16 White Blood Count 4.7 Red Blood Count 3.40 Hemoglobin 10.2 Hematocrit 30.4 Mean Corpuscular Volume 89.6 Mean Corpuscular Hemoglobin 30.2 Mean Corpuscular Hemoglobin 33.7 Concent Red Cell Distribution Width 20.6 Platelet Count 170 Mean Platelet Volume 8.6 Neutrophils (%) (Auto) 51.8 Lymphocytes (%) (Auto) 32.2 Monocytes (%) (Auto) 11.1 Eosinophils (%) (Auto) 2.9 Basophils (%) (Auto) 2.0 Neutrophils # (Auto) 2.4 Lymphocytes # (Auto) 1.5 Monocytes # (Auto) 0.5 Eosinophils # (Auto) 0.1 Basophils # (Auto) 0.1 CBC Comment DIFF FINAL Differential Comment Sodium Level 138 Potassium Level 4.5 Chloride Level 105 Carbon Dioxide Level 26.0 Anion Gap 7 Blood Urea Nitrogen 8 Creatinine 0.55 Estimat Glomerular Filtration 163 Rate Random Glucose 118 Calcium Level 8.1 Magnesium Level 1.4 Imaging Last Impressions Chest X-Ray 12/14/16 0000 Signed Impressions: Service Date/Time: December 18:44 - CONCLUSION: Improved right lower lobe infiltrate. Kan Borges MD Head CT 12/02/16 0000 Signed Impressions: Service Date/Time: Friday, December 02, 2016 14:39 - CONCLUSION: No acute disease. Kan Altamirano MD Abdomen/Pelvis CT 11/28/16 0054 Signed Impressions: Service Date/Time: Monday, November 28, 2016 01:47 - CONCLUSION: Severe constipation. No acute CT findings. Kan Lyons MD Physical Exam HEENT:Normocephalic; atraumatic; no jaundice. CHEST: CTA CARDIAC: RRR ABDOMEN: Soft, nondistended, nontender; no hepatosplenomegaly; bowel sounds are present in all four quadrants. EXTREMITIES: No clubbing, cyanosis, or edema. 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 Abdomen/Pelvis CT (11/28/16)----> Severe constipation. No acute CT findings. S/P EGD/colonoscopy on (11/29/16) showed esophagitis, poor colonic prep, no signs of bleeding. Pathology acutely inflamed and markedly reactive ulcerated squamous mucosa with a small number budding yeast in the superficial squamous layers consistent with Claudia esophagitis. S/P Colonoscopy with 2 day prep (12/04/16)---> ulceration, colitis in descending sigmiod, rectum, s/p biopsies , retroflexed views medium internal hemorrhoids, internal hemorrhoids, external hemorrhoids. Pathology colonic mucosal biopsy without significant histopathologic abnormality malady negative for colitis and ulceration in the descending colon ulcer biopsy, sigmoid colon with mild acute nonspecific colitis, rectal biopsy with acute colitis exhibiting ischemic features S/P GS evaluation. Canasa Suppository. Pain has subsided, but was having persistent diarrhea and therefore had flexible sigmoidoscopy (12/13/16)---> mild colitis, probably nonspecific, pathology with colonic mucosa without significant histologic abnormality. Recommended to continue Canasa, Xifaxan, Creon, Canasa, Lactinex, Lomotil. Mag oxide po was discontinued. CDiff (-) on 12/08 esd negative. Flagyl. Reconsulted for diarrhea/incontinence. MRI of the spine/scarum. - Claudia esophagitis. PPI. S/P Diflucan. - Anemia (normocytic, normochromic )- likely multifactorial. no bleeding , hgb stable - Failure to thrive/ wt loss, IMPROVING. - Sepsis. IMPROVED, ID following. - AKF Resolved - Fibromyalgia/ HTN, CAD, DM per attending Plan: - JHONY - Cont. PPI - Cont. Canasa - Cont. Xifaxan - Cont. Creon - Cont. Lactinex - Cont. Lomotil - Cont. Dicyclomine - MRI Lumbar and sacral spine - Monitor HH - Transfuse as needed - Patient seen and examined by Dr. Cosby and myself and this note is written on her behalf. (Jolly Restrepo) Physician Comments seen, examined agree with above (Allison Cosby MD) Jolly Restrepo Dec 31, 2016 16:22 Allison Cosby MD Dec 31, 2016 18:11
[2016-12-31] MEDS: DICYCLOMINE HCL 20 MG TAB PO SCH (18:34)
[2016-12-31 20:20] VITALS: BP 153/94; PULSE 108; RESP 22; TEMP 98.4; O2SAT 99
[2016-12-31] MEDS: MESALAMINE 1000 MG SUPP RECTAL SCH (21:00)
[2017-01-01 00:23] VITALS: BP 141/95; PULSE 104; RESP 20; TEMP 97.6; O2SAT 99
[2017-01-01] MEDS: DIPHENOXYLATE/ATROPINE 2.5 MG/0.025 MG TAB PO SCH ×4 (03:04→21:31)
[2017-01-01] MEDS: LACTATED RINGER'S 1000 ML INJ 1,000 ML IV SCH ×2 (03:04→14:51)
[2017-01-01] MEDS: ACETAMINOPHEN/HYDROcodone 325 MG/5 MG TAB PO PRN ×4 (03:04→21:31)
[2017-01-01] MEDS: LACTOBACILLUS ACIDOPHILUS TAB PO SCH ×3 (03:04→21:31)
[2017-01-01] MEDS: CHLORHEXIDINE GLUCONATE 2 % 1 PACK (2 CLOTHS) TOP SCH (04:00)
[2017-01-01 04:24] VITALS: BP 109/76; PULSE 105; RESP 18; TEMP 97.1; O2SAT 98
[2017-01-01] MEDS: CHOLESTYRAMINE 4 GM PACKET PO SCH (06:44)
[2017-01-01] MEDS: metroNIDAZOLE 250 MG TAB PO SCH ×3 (06:44→21:33)
[2017-01-01] MEDS: INSULIN ASPART SUPPLEMENTAL SCALE SQ SCH ×4 (06:45→21:00)
[2017-01-01] MEDS: RIFAXIMIN 550 MG TAB PO SCH ×2 (08:08→21:31)
[2017-01-01] MEDS: DICYCLOMINE HCL 20 MG TAB PO SCH ×3 (08:08→16:34)
[2017-01-01] MEDS: POTASSIUM PHOSPHATE MONOBASIC 500 MG TAB PO SCH ×2 (08:10→21:31)
[2017-01-01] MEDS: LIPASE/PROTEASE/AMYLASE (24,000/76,000/120,000) CAP PO SCH ×3 (08:10→16:34)
[2017-01-01] MEDS: LISINOPRIL 5 MG TAB PO SCH (08:10)
[2017-01-01] MEDS: CALCIUM/VITAMIN D 250 MG/125 U TAB PO SCH ×2 (08:10→21:31)
[2017-01-01] MEDS: CALCIUM CARBONATE 500 MG CHEWABLE TAB CHEW SCH ×2 (08:10→21:30)
[2017-01-01] MEDS: PANTOPRAZOLE SODIUM 40 MG VIAL IV SCH (08:11)
[2017-01-01] MEDS: SODIUM CHLORIDE 0.9% FLUSH 5 ML FLUSH IV FLUSH SCH ×2 (08:11→21:00)
[2017-01-01 08:12] VITALS: BP 142/87; PULSE 86; RESP 18; TEMP 97.4; O2SAT 98
[2017-01-01] MEDS: NYSTATIN 100,000 U/GM PWD 15 GM BTL TOPICAL SCH ×2 (08:14→21:00)
[2017-01-01 08:19] LABS: BICARBONATE 27.7 MEQ/L (21.0-32.0); MAGNESIUM 1.7 MG/DL (1.5-2.5); POTASSIUM 4.5 MEQ/L (3.5-5.1)
--- NOTE | 2017-01-01 08:40 | HHI.PR ---
Subjective Remarks Follow-up hypomagnesemia, diarrhea. The patient continues to have watery/loose stools and fecal incontinence. Objective Vitals Vital Signs Date Time Temp Pulse Resp B/P Pulse Ox O2 Delivery O2 Flow Rate FiO2 01/01/17 08:12 97.4 86 18 142/87 98 01/01/17 04:24 97.1 105 18 109/76 98 01/01/17 00:23 97.6 104 20 141/95 99 12/31/16 20:20 98.4 108 22 153/94 99 12/31/16 16:00 96.6 71 18 148/86 96 12/31/16 12:00 96.8 86 18 145/89 98 I/O 12/31/16 12/31/16 12/31/16 01/01/17 01/01/17 01/01/17 07:00 15:00 23:00 07:00 15:00 23:00 Intake Total 667 ml 480 ml 1602 ml Output Total 825 ml 1800 ml 1000 ml 700 ml Balance -158 ml -1320 ml 602 ml -700 ml Intake Oral 480 ml 480 ml IV Total 667 ml 1122 ml Output Urine Total 825 ml 1800 ml 1000 ml 700 ml # Bowel Movements 2 2 Result Diagram: 12/31/16 0716 12/31/16 0716 Imaging Last Impressions Chest X-Ray 12/14/16 0000 Signed Impressions: Service Date/Time: December 18:44 - CONCLUSION: Improved right lower lobe infiltrate. Kan Borges MD Head CT 12/02/16 0000 Signed Impressions: Service Date/Time: Friday, December 02, 2016 14:39 - CONCLUSION: No acute disease. Kan Altamirano MD Abdomen/Pelvis CT 11/28/16 0054 Signed Impressions: Service Date/Time: Monday, November 28, 2016 01:47 - CONCLUSION: Severe constipation. No acute CT findings. Kan Lyons MD Objective Remarks General: Thin male in no acute distress. Heart: Regular rate and rhythm. No murmur. Lungs: Clear to auscultation bilaterally. No wheezes, rales, or rhonchi. Breathing is nonlabored. Abdomen: Soft, nontender, nondistended. Hyperactive bowel sounds. Extremities: No lower extremity edema. Psych: Alert and oriented. Procedures 12/13/16 flexible sigmoidoscopy Urinary Catheter: No Vascular Central Line Catheter: No A/P Problem List: (1) Severe sepsis ICD Code: A41.9 Status: Resolved (2) Metabolic encephalopathy ICD Code: G93.41 Status: Resolved (3) Diarrhea ICD Code: R19.7 Status: Acute (4) FELICITAS (acute kidney injury) ICD Code: N17.9 Status: Resolved (5) Hypothermia ICD Code: T68.XXXA Status: Acute (6) Hyperglycemia ICD Code: R73.9 Status: Acute (7) Anemia ICD Code: D64.9 Status: Chronic (8) Constipation ICD Code: K59.00 Status: Resolved (9) Hypocalcemia ICD Code: E83.51 Status: Resolved (10) Leukopenia ICD Code: D72.819 Status: Acute Assessment and Plan 1. Severe sepsis secondary to GI source, possible pneumonia: Resolved. 2. Metabolic encephalopathy: Secondary to sepsis. Resolved. 3. Diarrhea: Stool studies are negative. Diarrhea likely secondary to colitis. Continue Lactinex, rifaximin, Lomotil. Had worsened yesterday, somewhat better today. Appreciate GI recommendations. MRI of L-spine ordered. 4. Acute kidney injury: Improved. 5. Hypothermia: Intermittent episodes during this hospitalization. Likely secondary to adrenal insufficiency. 6. Hyperglycemia: Hemoglobin A1c 6.2. Monitor Accu-Cheks and cover with sliding scale insulin. 7. Anemia: Patient has received 3 units PRBCs during this hospitalization. H/H stable. 8. Electrolyte abnormalities: Likely secondary to malnutrition. Improved. 9. Leukopenia: Likely secondary to sepsis, acute infection/illness. Monitor labs. Improved. 10. Sacral decubitus ulcers: Continue wound care. Specialty bed ordered. Reposition patient every 2 hours. 11. GI prophylaxis: PPI. 12. DVT prophylaxis: SCDs. Avoid chemical prophylaxis secondary to anemia. 13. Hypomagnesemia: Improved. 14. Hypertension: BP has been elevated. Continue lisinopril. Problem Qualifiers (1) Anemia: Te Pyle MD Jan 01, 2017 08:40
--- NOTE | 2017-01-01 10:31 | HHI.GIFU ---
Subjective Remarks Resting in bed. States he has had 2 loose bowel movements today, but overall diarrhea has improved. Has not gone for MRI yet. Still with abdominal tenderness. Objective Vitals I&O Vital Signs Date Time Temp Pulse Resp B/P Pulse Ox O2 Delivery O2 Flow Rate FiO2 01/01/17 08:12 97.4 86 18 142/87 98 01/01/17 04:24 97.1 105 18 109/76 98 01/01/17 00:23 97.6 104 20 141/95 99 12/31/16 20:20 98.4 108 22 153/94 99 12/31/16 16:00 96.6 71 18 148/86 96 12/31/16 12:00 96.8 86 18 145/89 98 I/O 12/31/16 12/31/16 12/31/16 01/01/17 01/01/17 01/01/17 07:00 15:00 23:00 07:00 15:00 23:00 Intake Total 667 ml 480 ml 1602 ml Output Total 825 ml 1800 ml 1000 ml 700 ml Balance -158 ml -1320 ml 602 ml -700 ml Intake Oral 480 ml 480 ml IV Total 667 ml 1122 ml Output Urine Total 825 ml 1800 ml 1000 ml 700 ml # Bowel Movements 2 2 Laboratory Laboratory Tests Test 01/01/17 07:40 Sodium Level 139 Potassium Level 4.5 Chloride Level 105 Carbon Dioxide Level 27.7 Anion Gap 6 Blood Urea Nitrogen 10 Creatinine 0.57 Estimat Glomerular Filtration 156 Rate Random Glucose 106 Calcium Level 8.0 Magnesium Level 1.7 Imaging Last Impressions Chest X-Ray 12/14/16 0000 Signed Impressions: Service Date/Time: December 18:44 - CONCLUSION: Improved right lower lobe infiltrate. Kan Borges MD Head CT 12/02/16 0000 Signed Impressions: Service Date/Time: Friday, December 02, 2016 14:39 - CONCLUSION: No acute disease. Kan Altamirano MD Abdomen/Pelvis CT 11/28/16 0054 Signed Impressions: Service Date/Time: Monday, November 28, 2016 01:47 - CONCLUSION: Severe constipation. No acute CT findings. Kan Lyons MD Physical Exam HEENT:Normocephalic; atraumatic; no jaundice. CHEST: CTA CARDIAC: RRR ABDOMEN: Soft, nondistended, mild diffuse abdominal tenderness; no hepatosplenomegaly; bowel sounds are present in all four quadrants. EXTREMITIES: No clubbing, cyanosis, or edema. 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 Abdomen/Pelvis CT (11/28/16)----> Severe constipation. No acute CT findings. S/P EGD/colonoscopy on (11/29/16) showed esophagitis, poor colonic prep, no signs of bleeding. Pathology acutely inflamed and markedly reactive ulcerated squamous mucosa with a small number budding yeast in the superficial squamous layers consistent with Claudia esophagitis. S/P Colonoscopy with 2 day prep (12/04/16)---> ulceration, colitis in descending sigmiod, rectum, s/p biopsies , retroflexed views medium internal hemorrhoids, internal hemorrhoids, external hemorrhoids. Pathology colonic mucosal biopsy without significant histopathologic abnormality malady negative for colitis and ulceration in the descending colon ulcer biopsy, sigmoid colon with mild acute nonspecific colitis, rectal biopsy with acute colitis exhibiting ischemic features S/P GS evaluation. Canasa Suppository. Pain has subsided, but was having persistent diarrhea and therefore had flexible sigmoidoscopy (12/13/16)---> mild colitis, probably nonspecific, pathology with colonic mucosa without significant histologic abnormality. Recommended to continue Canasa, Xifaxan, Creon, Canasa, Lactinex, Lomotil, Dicyclomine. Mag oxide po was discontinued. CDiff (-) on 12/08 esd negative. Flagyl. Reconsulted for diarrhea/incontinence. MRI of the spine/scarum pending. 2 BMs so far today. - Claudia esophagitis. PPI. S/P Diflucan. - Anemia (normocytic, normochromic )- likely multifactorial. no bleeding , hgb stable - Failure to thrive/ wt loss, IMPROVING. - Sepsis. IMPROVED, ID following. - AKF Resolved - Fibromyalgia/ HTN, CAD, DM per attending Plan: - JHONY - Cont. PPI - Cont. Canasa - Cont. Xifaxan - Cont. Creon - Cont. Lactinex - Cont. Lomotil - Cont. Dicyclomine - Await MRI Lumbar and sacral spine - Monitor HH - Transfuse as needed - Patient seen and examined by Dr. Zhu and myself and this note is written on her behalf. Jolly Restrepo Jan 01, 2017 10:31
[2017-01-01 12:26] VITALS: BP 140/97; PULSE 93; RESP 18; TEMP 97.6; O2SAT 98
[2017-01-01] MEDS: FERROUS SULFATE 325 MG (65 MG ELEMENTAL IRON) TAB PO SCH ×2 (13:03→16:33)
--- NOTE | 2017-01-01 13:10 | RADRPT ---
EXAM DATE/TIME: 01/01/2017 11:04 [facility] COMPARISON: No previous studies available for comparison. INDICATIONS: Pain/sepsis. CONTRAST: 10 cc Omniscan (gadodiamide) IV MEDICAL HISTORY: Diabetes mellitus type 2. Congestive heart failure. Hypercholesterolemia. SURGICAL HISTORY: Left hip ORIF. ENCOUNTER: Subsequent ACUITY: 7-11 months PAIN SCORE: 5/10 LOCATION: Back TECHNIQUE: Multiplanar multisequence MRI of the lumbar spine was performed with and without contrast. FINDINGS: MRI of the lumbar spine was obtained. There is minimal anterior wedging of T12 that is subacute by MRI. There is good preservation of the remainder of the vertebral body heights. The marrow signal is homo geneous. There is good visualization of the disc. There is no evidence for a diskitis. T12-L1: The thecal sac has a normal diameter. No evidence of disc bulge or protrusion. The neural foramina are patent bilaterally. L1-L2: The thecal sac has a normal diameter. No evidence of disc bulge or protrusion. The neural foramina are patent bilaterally. L2-L3: The thecal sac has a normal diameter. No evidence of disc bulge or protrusion. The neural foramina are patent bilaterally. L3-L4: The thecal sac has a normal diameter. No evidence of disc bulge or protrusion. The neural foramina are patent bilaterally. L4-L5: The thecal sac has a normal diameter. No evidence of disc bulge or protrusion. The neural foramina are patent bilaterally. L5-S1: There is large central to right-sided disc herniation encroaching on the right L5 and the right S1 ro ots with significant neural compression. SI joints are normal. There is no abnormal contrast enhancement CONCLUSION: 1. Large disc herniation at L5-S1 to the right. 2. I do not see evidence for an inflammatory process. Ganesh Jaquez MD FACR on January 01, 2017 at 12:48 Board Certified Radiologist. This report was verified electronically.
--- NOTE | 2017-01-01 13:25 | RADRPT ---
EXAM DATE/TIME: 01/01/2017 11:04 [facility] COMPARISON: No previous studies available for comparison. INDICATIONS: Abscess. Pain. CONTRAST: 10 cc Omniscan (gadodiamide) IV MEDICAL HISTORY: Diabetes mellitus type 2. Congestive heart failure. Hypercholesterolemia. SURGICAL HISTORY: Left hip ORIF. ENCOUNTER: Subsequent ACUITY: 7-11 months PAIN SCORE: 5/10 LOCATION: Sacrum TECHNIQUE: Multiplanar multisequence MRI examination of the sacrum/coccyx was performed. FINDINGS: MRI of the sacrum was performed in this patient who has pain localized just to the left of midline. There is good visualization of the sacrum. Marrow signal appears homogeneous. SI joints are normal. There is no abnormal contrast enhancement. There is no evidence for inflammatory diskitis. CONCLUSION: 1. Negative MRI of the sacrum. 2. MRI of the lumbar spine revealed a large central to right-sided disc at L5-S1. Ganesh Jaquez MD FACR on January 01, 2017 at 12:50 Board Certified Radiologist. This report was verified electronically.
[2017-01-01] MEDS ORDERED: GADODIAMIDE PF 287 MG/ML 10 ML VIAL (for RAD MRI) IV ONE (15:13)
[2017-01-01 16:30] VITALS: BP 141/90; PULSE 92; RESP 18; TEMP 97; O2SAT 100
--- NOTE | 2017-01-01 19:44 | PD.CONS ---
HPI Service Neurosurgery Consult Requested By Medicine Reason for Consult HNP L5S1 Primary Care Physician No Primary Care Physician History of Present Illness 41 yr old was admitted with mental status changes and sepsis as well as multi substance abuse. He was found to have a herniated disc at L5S1 on the right on MRI. He has no abscesses on the spine or in the disc. His complaints are related to loss of feeling and tingling in both feet causing him to loose his balance. He has a diagnosis of neuropathy and used to be on gabapentin which helped. He has some weakness but it is on the left foot. Review of Systems Constitutional: COMPLAINS OF: Fatigue, Weight loss, Change in appetite Ears, nose, mouth, throat: COMPLAINS OF: Vertigo Gastrointestinal: COMPLAINS OF: Diarrhea Musculoskeletal: COMPLAINS OF: Muscle aches, Back pain Neurologic: COMPLAINS OF: Abnormal gait, Paresthesias, Poor Balance Psychiatric: COMPLAINS OF: Anxiety, Mood changes Past Family Social History Allergies: Coded Allergies: *MDRO Multi-Drug Resistant Organism (Verified Adverse Reaction, Unknown, MRSA, 11/30/16) MRSA PCR screen POSITIVE - 11/28/16 Past Medical History Pancreatitis Chronic pain Sepsis DM Past Surgical History PEG Left hip surgery Reported Medications Reported Meds & Active Scripts Active Reported Zofran (Ondansetron HCl) 4 Mg Tab 4 Mg PO Q6HR PRN Metformin (Metformin HCl) 500 Mg Tab 500 Mg PO BIDPC With meals Social History Lives with his mother, polysubstance abuse Physical Exam Vital Signs Vital Signs Date Time Temp Pulse Resp B/P Pulse Ox O2 Delivery O2 Flow Rate FiO2 01/01/17 16:30 97.0 92 18 141/90 100 01/01/17 12:26 97.6 93 18 140/97 98 01/01/17 08:12 97.4 86 18 142/87 98 01/01/17 04:24 97.1 105 18 109/76 98 01/01/17 00:23 97.6 104 20 141/95 99 12/31/16 20:20 98.4 108 22 153/94 99 Physical Exam Frail gentleman lying in bed, appears twenty yrs older than stated age, Speech fluent, attention is good. Moves both hi flexors, quads, ant tib and gastroc 5/5, right EHL 5/5, left EHL 4 /5 Sensory changes from the knees down with paresthesias, Hyporeflexic in the patella and ankles, No clonus, no Babinski, no peripheral edema, Skin with multiple abrasions, cachectic appearance. Laboratory Laboratory Tests Test 01/01/17 07:40 Sodium Level 139 Potassium Level 4.5 Chloride Level 105 Carbon Dioxide Level 27.7 Anion Gap 6 Blood Urea Nitrogen 10 Creatinine 0.57 Estimat Glomerular Filtration 156 Rate Random Glucose 106 Calcium Level 8.0 Magnesium Level 1.7 Result Diagram: 12/31/16 0716 01/01/17 0740 Imaging MRI of the LS spine shows a chronic degeneration at L5S1 with impingement on the right L5S1 proximal foramen. The central canal is open. There is no abcess, no discitis, no fracture or subluxation. Assessment and Plan Diagnosis: (1) Neuropathy associated with endocrine disorder Plan: He had relief with gabapentin in the past. It was re-ordered tonight. ICD Code: E34.9 (2) Spondylosis of lumbosacral joint without myelopathy Plan: Spondylosis at L5S1 is unchanged from the CT on 03/04/16. His pain and balance problems seem to be related to the neuropathy. He is agreeable to continued gentle rehab in addition to the gabapentin. No injection or surgery is needed at this time. ICD Code: M47.817 Jeremy Saxena Jan 01, 2017 19:44
[2017-01-01 20:35] VITALS: BP 142/91; PULSE 93; RESP 20; TEMP 96.6; O2SAT 100
[2017-01-01] MEDS: MESALAMINE 1000 MG SUPP RECTAL SCH (21:00)
[2017-01-02 00:26] VITALS: BP 123/75; PULSE 96; RESP 18; TEMP 98; O2SAT 99
[2017-01-02] MEDS: DIPHENOXYLATE/ATROPINE 2.5 MG/0.025 MG TAB PO SCH ×4 (03:23→21:14)
[2017-01-02] MEDS: CHLORHEXIDINE GLUCONATE 2 % 1 PACK (2 CLOTHS) TOP SCH (04:00)
[2017-01-02] MEDS: LACTOBACILLUS ACIDOPHILUS TAB PO SCH ×3 (05:53→21:14)
[2017-01-02] MEDS: ACETAMINOPHEN/HYDROcodone 325 MG/5 MG TAB PO PRN ×4 (05:53→21:14)
[2017-01-02] MEDS: CHOLESTYRAMINE 4 GM PACKET PO SCH (05:53)
[2017-01-02] MEDS: metroNIDAZOLE 250 MG TAB PO SCH (05:53)
[2017-01-02] MEDS: INSULIN ASPART SUPPLEMENTAL SCALE SQ SCH ×4 (06:25→21:00)
[2017-01-02 06:50] VITALS: BP 139/87; PULSE 93; RESP 20; TEMP 97.7; O2SAT 100
[2017-01-02 07:58] VITALS: BP 153/90; PULSE 89; RESP 18; TEMP 97; O2SAT 97
[2017-01-02] MEDS: RIFAXIMIN 550 MG TAB PO SCH ×2 (08:16→21:14)
[2017-01-02] MEDS: LIPASE/PROTEASE/AMYLASE (24,000/76,000/120,000) CAP PO SCH ×3 (08:16→17:42)
[2017-01-02] MEDS: LISINOPRIL 5 MG TAB PO SCH (08:16)
[2017-01-02] MEDS: CALCIUM CARBONATE 500 MG CHEWABLE TAB CHEW SCH ×2 (08:17→21:14)
[2017-01-02] MEDS: CALCIUM/VITAMIN D 250 MG/125 U TAB PO SCH ×2 (08:17→21:13)
[2017-01-02] MEDS: DICYCLOMINE HCL 20 MG TAB PO SCH ×3 (08:17→17:42)
[2017-01-02] MEDS: POTASSIUM PHOSPHATE MONOBASIC 500 MG TAB PO SCH ×2 (08:17→21:14)
[2017-01-02] MEDS: PANTOPRAZOLE SODIUM 40 MG VIAL IV SCH (08:18)
[2017-01-02] MEDS: SODIUM CHLORIDE 0.9% FLUSH 5 ML FLUSH IV FLUSH SCH ×2 (08:18→21:00)
[2017-01-02] MEDS: NYSTATIN 100,000 U/GM PWD 15 GM BTL TOPICAL SCH ×2 (08:20→21:00)
[2017-01-02] MEDS: LACTATED RINGER'S 1000 ML INJ 1,000 ML IV SCH ×3 (10:00→20:00)
[2017-01-02] MEDS: FERROUS SULFATE 325 MG (65 MG ELEMENTAL IRON) TAB PO SCH ×2 (11:04→17:42)
--- NOTE | 2017-01-02 11:09 | HHI.GIFU ---
Subjective Remarks He says he doesn't feel well today. His appetite is good. He reports 4-5 BM today but EMR has one BM documented for today and 0 over night. Objective Vitals I&O Vital Signs Date Time Temp Pulse Resp B/P Pulse Ox O2 Delivery O2 Flow Rate FiO2 01/02/17 07:58 97.0 89 18 153/90 97 01/02/17 06:50 97.7 93 20 139/87 100 01/02/17 00:26 98.0 96 18 123/75 99 01/01/17 20:35 96.6 93 20 142/91 100 01/01/17 16:30 97.0 92 18 141/90 100 01/01/17 12:26 97.6 93 18 140/97 98 I/O 01/01/17 01/01/17 01/01/17 01/02/17 01/02/17 01/02/17 07:00 15:00 23:00 07:00 15:00 23:00 Intake Total 676 ml Output Total 700 ml 500 ml 900 ml Balance -700 ml 676 ml -500 ml -900 ml Intake Oral 240 ml IV Total 436 ml Output Urine Total 700 ml 500 ml 900 ml # Voids 4 # Bowel Movements 1 0 1 Imaging Last Impressions Sacrum/Coccyx MRI 01/01/17 0000 Signed Impressions: Service Date/Time: Sunday, January 01, 2017 11:04 - CONCLUSION: 1. Negative MRI of the sacrum. 2. MRI of the lumbar spine revealed a large central to right-sided disc at L5-S1. Ganesh Jaquez MD FACR Lumbar Spine MRI 01/01/17 0000 Signed Impressions: Service Date/Time: Sunday, January 01, 2017 11:04 - CONCLUSION: 1. Large disc herniation at L5-S1 to the right. 2. I do not see evidence for an inflammatory process. Ganesh Jaquez MD FACR Chest X-Ray 12/14/16 0000 Signed Impressions: Service Date/Time: December 18:44 - CONCLUSION: Improved right lower lobe infiltrate. Kan Borges MD Head CT 12/02/16 0000 Signed Impressions: Service Date/Time: Friday, December 02, 2016 14:39 - CONCLUSION: No acute disease. Kan Altamirano MD Abdomen/Pelvis CT 11/28/16 0054 Signed Impressions: Service Date/Time: Monday, November 28, 2016 01:47 - CONCLUSION: Severe constipation. No acute CT findings. Kan Lyons MD Physical Exam HEENT:Normocephalic; atraumatic; no jaundice. CHEST: CTA CARDIAC: tachycardic ABDOMEN: Soft, nondistended, mild diffuse abdominal tenderness; no hepatosplenomegaly; bowel sounds are present in all four quadrants. EXTREMITIES: No clubbing, cyanosis, or edema. 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 Abdomen/Pelvis CT (11/28/16)----> Severe constipation. No acute CT findings. S/P EGD/colonoscopy on (11/29/16) showed esophagitis, poor colonic prep, no signs of bleeding. Pathology acutely inflamed and markedly reactive ulcerated squamous mucosa with a small number budding yeast in the superficial squamous layers consistent with Claudia esophagitis. S/P Colonoscopy with 2 day prep (12/04/16)---> ulceration, colitis in descending sigmiod, rectum, s/p biopsies , retroflexed views medium internal hemorrhoids, internal hemorrhoids, external hemorrhoids. Pathology colonic mucosal biopsy without significant histopathologic abnormality malady negative for colitis and ulceration in the descending colon ulcer biopsy, sigmoid colon with mild acute nonspecific colitis, rectal biopsy with acute colitis exhibiting ischemic features S/P GS evaluation. Canasa Suppository. Pain has subsided, but was having persistent diarrhea and therefore had flexible sigmoidoscopy (12/13/16)---> mild colitis, probably nonspecific, pathology with colonic mucosa without significant histologic abnormality. Recommended to continue Canasa, Xifaxan, Creon, Canasa, Lactinex, Lomotil, Dicyclomine. Mag oxide po was discontinued. CDiff (-) on 12/08 esd negative. Flagyl. Reconsulted for diarrhea/incontinence. MRI of the spine/scarum as above. S/P neurosurgical eval. Pt reports 4-5 BMs and EMR reports 1. - Claudia esophagitis. PPI. S/P Diflucan. - Anemia (normocytic, normochromic )- likely multifactorial. no bleeding , hgb stable - Failure to thrive/ wt loss, IMPROVING. - Sepsis. IMPROVED, ID following. - AKF Resolved - Fibromyalgia/ HTN, CAD, DM per attending Plan: - JHONY - Cont. PPI - Cont. Canasa - Cont. Xifaxan - Cont. Creon - Cont. Lactinex - Cont. Lomotil - Cont. Dicyclomine - BMP in A.M. - Monitor stool output - Monitor HH - Transfuse as needed - Consider rck C Diff if worsening diarrhea - Patient seen and examined by Dr. Zhu and myself and this note is written on her behalf. Jolly Restrepo Jan 02, 2017 11:09
--- NOTE | 2017-01-02 11:14 | HHI.PR ---
Subjective Remarks Follow up diarrhea. Patient feels that his diarrhea is improving. No back pain, nausea, vomiting. Still feels weak. Objective Vitals Vital Signs Date Time Temp Pulse Resp B/P Pulse Ox O2 Delivery O2 Flow Rate FiO2 01/02/17 07:58 97.0 89 18 153/90 97 01/02/17 06:50 97.7 93 20 139/87 100 01/02/17 00:26 98.0 96 18 123/75 99 01/01/17 20:35 96.6 93 20 142/91 100 01/01/17 16:30 97.0 92 18 141/90 100 01/01/17 12:26 97.6 93 18 140/97 98 I/O 01/01/17 01/01/17 01/01/17 01/02/17 01/02/17 01/02/17 07:00 15:00 23:00 07:00 15:00 23:00 Intake Total 676 ml Output Total 700 ml 500 ml 900 ml Balance -700 ml 676 ml -500 ml -900 ml Intake Oral 240 ml IV Total 436 ml Output Urine Total 700 ml 500 ml 900 ml # Voids 4 # Bowel Movements 1 0 1 Result Diagram: 12/31/16 0716 01/01/17 0740 Imaging Last Impressions Sacrum/Coccyx MRI 01/01/17 0000 Signed Impressions: Service Date/Time: Sunday, January 01, 2017 11:04 - CONCLUSION: 1. Negative MRI of the sacrum. 2. MRI of the lumbar spine revealed a large central to right-sided disc at L5-S1. Ganesh Jaquez MD FACR Lumbar Spine MRI 01/01/17 0000 Signed Impressions: Service Date/Time: Sunday, January 01, 2017 11:04 - CONCLUSION: 1. Large disc herniation at L5-S1 to the right. 2. I do not see evidence for an inflammatory process. Ganesh Jaquez MD FACR Chest X-Ray 12/14/16 0000 Signed Impressions: Service Date/Time: December 18:44 - CONCLUSION: Improved right lower lobe infiltrate. Kan Borges MD Head CT 12/02/16 0000 Signed Impressions: Service Date/Time: Friday, December 02, 2016 14:39 - CONCLUSION: No acute disease. Kan Altamirano MD Abdomen/Pelvis CT 11/28/16 0054 Signed Impressions: Service Date/Time: Monday, November 28, 2016 01:47 - CONCLUSION: Severe constipation. No acute CT findings. Kan Lyons MD Objective Remarks General: Thin male in no acute distress. Heart: Regular rate and rhythm. No murmur. Lungs: Clear to auscultation bilaterally. No wheezes, rales, or rhonchi. Breathing is nonlabored. Abdomen: Soft, nontender, nondistended. Active bowel sounds. Extremities: No lower extremity edema. Psych: Alert and oriented. Procedures 12/13/16 flexible sigmoidoscopy Urinary Catheter: No Vascular Central Line Catheter: No A/P Problem List: (1) Severe sepsis ICD Code: A41.9 Status: Resolved (2) Metabolic encephalopathy ICD Code: G93.41 Status: Resolved (3) Diarrhea ICD Code: R19.7 Status: Acute (4) FELICITAS (acute kidney injury) ICD Code: N17.9 Status: Resolved (5) Hypothermia ICD Code: T68.XXXA Status: Acute (6) Hyperglycemia ICD Code: R73.9 Status: Acute (7) Anemia ICD Code: D64.9 Status: Chronic (8) Constipation ICD Code: K59.00 Status: Resolved (9) Hypocalcemia ICD Code: E83.51 Status: Resolved (10) Leukopenia ICD Code: D72.819 Status: Acute Assessment and Plan 1. Severe sepsis secondary to GI source, possible pneumonia: Resolved. 2. Metabolic encephalopathy: Secondary to sepsis. Resolved. 3. Diarrhea: Stool studies are negative. Diarrhea likely secondary to colitis. Continue Lactinex, rifaximin, Lomotil. Had worsened yesterday, somewhat better today. Appreciate GI recommendations. 4. Acute kidney injury: Improved. 5. Hypothermia: Intermittent episodes during this hospitalization. Likely secondary to adrenal insufficiency. 6. Hyperglycemia: Hemoglobin A1c 6.2. Monitor Accu-Cheks and cover with sliding scale insulin. 7. Anemia: Patient has received 3 units PRBCs during this hospitalization. H/H stable. 8. Electrolyte abnormalities: Likely secondary to malnutrition. Improved. 9. Leukopenia: Likely secondary to sepsis, acute infection/illness. Monitor labs. Improved. 10. Sacral decubitus ulcers: Continue wound care. Specialty bed ordered. Reposition patient every 2 hours. 11. GI prophylaxis: PPI. 12. DVT prophylaxis: SCDs. Avoid chemical prophylaxis secondary to anemia. 13. Hypomagnesemia: Improved. 14. Hypertension: Continue lisinopril. 15. Lumbar spine disc herniation: Appreciate neurosurgery recommendations. Conservative management at this time. Problem Qualifiers (1) Anemia: Te Pyle MD Jan 02, 2017 11:14
[2017-01-02 12:22] VITALS: BP 154/92; PULSE 92; RESP 18; TEMP 97.3; O2SAT 100
--- NOTE | 2017-01-02 12:48 | HHI.IDPN ---
Note Infectious Disease Note Patient feels well. Very good appetite. Decreased stools. Only one BM today. Afebrile. No abdominal pain. Previous colon biopsy showed acute colitis with ischemic features on path. Stool c. diff negative. PAST MEDICAL HISTORY 1. Diabetes mellitus reportedly improved after he lost a lot of weight 2. Arthritis, 3. Coronary artery disease, 4. Hypercholesteremia, 5. Congestive heart failure, 6. Fibromyalgia, 7. Gastroesophageal reflux disease, 8. Hepatitis, 9. Gout. 10. Hypertension, 11. kidney stones 12. History of left hip surgery, 13. History of right nephro lithotripsy and a J-tube stent 14. vasectomy. ALLERGIES NO KNOWN DRUG ALLERGIES. ANTIBIOTICS: Flagyl PO. Current Medications Medications (Trade) Dose Ordered Sig/Abbi Route PRN Reason Start Time Stop Time Status Last Admin Dose Admin IV Flush (NS Flush) 2 ml UNSCH PRN IV FLUSH FLUSH AFTER USING IV ACCESS 11/28/16 04:30 12/24/16 01:03 IV Flush (NS Flush) 2 ml BID IV FLUSH 11/28/16 09:00 01/01/17 21:00 Pantoprazole Sodium (Protonix Inj) 40 mg DAILY IV 11/28/16 09:00 01/02/17 08:18 Ondansetron HCl (Zofran Inj) 4 mg Q6H PRN IV NAUSEA OR VOMITING 11/28/16 04:30 Heparin Sodium (Porcine) (Heparin Inj) 5,000 units Q12H SQ 11/28/16 06:00 Hold 11/28/16 05:11 Miscellaneous Information 1 Q361D XX 11/28/16 04:30 Chlorhexidine Gluconate (Chlorhexidine 2% Cloth) Taper DAILY@04 TOP 11/29/16 04:00 11/25/17 03:59 12/02/16 04:00 Chlorhexidine Gluconate (Chlorhexidine 2% Cloth) 3 pack UNSCH PRN TOP HYGIENIC CARE 11/28/16 04:30 Acetaminophen/ Hydrocodone Bitart ([place] 5-325 Mg) 1 tab Q4H PRN PO PAIN 1-10 11/28/16 17:30 01/02/17 11:03 Hydromorphone HCl (Dilaudid Pf Inj) 0.5 mg Q4H PRN IV PUSH pain 6-10 or not taking po 11/29/16 01:00 11/29/16 11:39 Calcium Carbonate (Tums Chew) 500 mg Q2H PRN CHEW dyspepsia 12/01/16 11:00 12/25/16 04:57 Mesalamine (Canasa Supp) 1,000 mg HS RECTAL 12/04/16 21:00 01/01/17 21:00 Nystatin (Mycostatin Powder) 1 applic DAILY PRN TOPICAL REDNESS 12/08/16 20:00 12/26/16 21:23 Nystatin (Mycostatin Powder) 1 applic Q12HR TOPICAL 12/09/16 11:15 01/02/17 08:20 Zinc Oxide (Zinc Oxide 20% Oint) 1 applic UNSCH PRN TOPICAL rash 12/09/16 11:15 Rifaximin (Xifaxan) 550 mg BID PO 12/10/16 21:00 01/02/17 08:16 Amylase/Lipase/ Protease (Creon 24-76-120) 1 cap TID PO 12/10/16 18:00 01/02/17 08:16 Sodium Chloride ([place] Bivalve) 2 spray Q4H PRN EACH NARE NASAL CONGESTION 12/12/16 10:45 12/12/16 16:13 Potassium Phosphate (K-Phos) 1,000 mg Q12HR PO 12/12/16 14:00 01/02/17 08:17 Diphenoxylate HCl/ Atropine 1 tab 1 tab Q6H PO 12/15/16 20:00 01/02/17 11:04 Lactated Ringer's (Lr 1000 ml Inj) 1,000 ml @ 100 mls/hr Q10H IV 12/15/16 22:00 01/01/17 14:51 Lactobacillus Acidophilus (Lactinex) 1 tab Q8HR PO 12/17/16 22:00 01/02/17 05:53 Dextrose (D50w (Vial) Inj) 25 ml UNSCH PRN IV PUSH HYPOGLYCEMIA-SEE COMMENTS 12/17/16 17:30 Glucagon (Glucagon Inj) 1 mg UNSCH PRN OTHER HYPOGLYCEMIA-SEE COMMENTS 12/17/16 17:30 Calcium Carbonate (Tums Chew) 500 mg Q12HR CHEW 12/18/16 21:00 01/02/17 08:17 Ferrous Sulfate (Ferrous Sulfate) 325 mg BID@,17 PO 12/20/16 17:00 01/02/17 11:04 Metronidazole (Flagyl) 250 mg Q8HR PO 12/21/16 22:00 01/02/17 05:53 Ergocalciferol (Drisdol) 50,000 units Q7D PO 12/22/16 12:00 12/29/16 12:30 Calcium/Vitamin D (Oscal-D 250-125) 250 mg Q12HR PO 12/22/16 12:00 01/02/17 08:17 Petrolatum (Vaseline Oint) 1 applic UNSCH PRN TOPICAL dry skin 12/23/16 14:15 Cholestyramine Resin (Questran 4 Gm Pkt) 4 gm DAILY@06 PO 01/01/17 06:00 01/02/17 05:53 Lisinopril (Prinivil) 5 mg DAILY PO 12/31/16 14:00 01/02/17 08:16 Dicyclomine HCl (Bentyl) 20 mg TID PO 12/31/16 18:00 01/02/17 08:17 OBJECTIVE: Vital Signs Date Time Temp Pulse Resp B/P Pulse Ox O2 Delivery O2 Flow Rate FiO2 01/02/17 12:22 97.3 92 18 154/92 100 01/02/17 07:58 97.0 89 18 153/90 97 01/02/17 06:50 97.7 93 20 139/87 100 01/02/17 00:26 98.0 96 18 123/75 99 01/01/17 20:35 96.6 93 20 142/91 100 01/01/17 16:30 97.0 92 18 141/90 100 01/01/17 01/01/17 01/02/17 15:00 23:00 07:00 Intake Total 676 ml Output Total 500 ml 900 ml Balance 676 ml -500 ml -900 ml Intake Oral 240 ml IV Total 436 ml Output Urine Total 500 ml 900 ml # Voids 4 # Bowel Movements 1 0 1 Laboratory Tests Test 01/01/17 07:40 Sodium Level 139 MEQ/L Potassium Level 4.5 MEQ/L Chloride Level 105 MEQ/L Carbon Dioxide Level 27.7 MEQ/L Anion Gap 6 MEQ/L Blood Urea Nitrogen 10 MG/DL Creatinine 0.57 MG/DL Estimat Glomerular Filtration 156 ML/MIN Rate Random Glucose 106 MG/DL Calcium Level 8.0 MG/DL Magnesium Level 1.7 MG/DL IMAGING; Sacrum/Coccyx MRI 01/01/17 0000 Signed Impressions: Service Date/Time: Sunday, January 01, 2017 11:04 - CONCLUSION: 1. Negative MRI of the sacrum. 2. MRI of the lumbar spine revealed a large central to right-sided disc at L5-S1. Ganesh Jaquez MD FACR Lumbar Spine MRI 01/01/17 0000 Signed Impressions: Service Date/Time: Sunday, January 01, 2017 11:04 - CONCLUSION: 1. Large disc herniation at L5-S1 to the right. 2. I do not see evidence for an inflammatory process. Ganesh Jaquez MD FACR Chest X-Ray 12/14/16 0000 Signed Impressions: Service Date/Time: December 18:44 - CONCLUSION: Improved right lower lobe infiltrate. Kan Borges MD Head CT 12/02/16 0000 Signed Impressions: Service Date/Time: Friday, December 02, 2016 14:39 - CONCLUSION: No acute disease. Kan Altamirano MD Abdomen/Pelvis CT 11/28/16 0054 Signed Impressions: Service Date/Time: Monday, November 28, 2016 01:47 - CONCLUSION: Severe constipation. No acute CT findings. Kan Lyons MD PHYSICAL EXAMINATION GENERAL: Cachectic. Awake,alert and oriented. HEENT: Oropharynx no visible lesions. NECK: Supple without adenopathy. LUNGS: Clear breath sounds bilateral. HEART: Distant S1-S2 without audible murmurs, rubs or gallops. ABDOMEN: Positive bowel sounds. Non tender. EXTREMITIES: No clubbing, cyanosis or edema. Diffuse muscle wasting throughout. SKIN: Macular rash on lower abdomen and buttock. NEUROLOGIC: Nonfocal. PSYCHIATRIC: Calm and cooperative. IMPRESSION 1. Septic shock. On admission. 2. Diarrhea. Stool studies negative. Still having loose stools. 3. Severe protein calorie malnutrition. 4. R. lung infiltrate on CXR. ?pneumonia vs atelectasis. Treated. 5. Claudia esophagitis. Treated. 6. Colitis - Non specific. Stable. RECOMMENDATIONS D/C Flagyl. Nothing new to add. I will sign off now. Wilber Nunez MD Jan 02, 2017 12:48
[2017-01-02 16:12] VITALS: BP 125/86; PULSE 95; RESP 18; TEMP 96.4; O2SAT 100
[2017-01-02 20:00] VITALS: BP 147/99; PULSE 96; RESP 18; TEMP 97.5; O2SAT 96
[2017-01-02] MEDS: MESALAMINE 1000 MG SUPP RECTAL SCH (21:00)
[2017-01-03] VITALS: BP 122/80; PULSE 105; RESP 18; TEMP 98.7; O2SAT 98
[2017-01-03 04:00] VITALS: BP_SYST 111; BP_SYST 165; BP_DIAS 70; BP_DIAS 91; PULSE 68; PULSE 98; RESP 18; TEMP 96; TEMP 98.6; O2SAT 97; O2SAT 99
[2017-01-03] MEDS: CHLORHEXIDINE GLUCONATE 2 % 1 PACK (2 CLOTHS) TOP SCH (04:00)
[2017-01-03] MEDS: CHOLESTYRAMINE 4 GM PACKET PO SCH (05:27)
[2017-01-03] MEDS: LACTATED RINGER'S 1000 ML INJ 1,000 ML IV SCH ×2 (05:27→17:51)
[2017-01-03] MEDS: ACETAMINOPHEN/HYDROcodone 325 MG/5 MG TAB PO PRN ×3 (05:27→17:49)
[2017-01-03] MEDS: LACTOBACILLUS ACIDOPHILUS TAB PO SCH ×3 (05:27→22:23)
[2017-01-03] MEDS: DIPHENOXYLATE/ATROPINE 2.5 MG/0.025 MG TAB PO SCH ×4 (05:32→22:23)
[2017-01-03] MEDS: INSULIN ASPART SUPPLEMENTAL SCALE SQ SCH ×4 (07:00→21:00)
[2017-01-03 07:40] LABS: BICARBONATE 27.8 MEQ/L (21.0-32.0); POTASSIUM 4.7 MEQ/L (3.5-5.1)
[2017-01-03 07:44] VITALS: BP 133/86; PULSE 97; RESP 18; TEMP 96.9; O2SAT 97
[2017-01-03] MEDS: SODIUM CHLORIDE 0.9% FLUSH 5 ML FLUSH IV FLUSH SCH ×2 (09:00→22:24)
[2017-01-03] MEDS: NYSTATIN 100,000 U/GM PWD 15 GM BTL TOPICAL SCH ×2 (09:00→21:00)
[2017-01-03] MEDS: LIPASE/PROTEASE/AMYLASE (24,000/76,000/120,000) CAP PO SCH ×3 (09:18→17:49)
[2017-01-03] MEDS: CALCIUM/VITAMIN D 250 MG/125 U TAB PO SCH ×2 (09:18→22:23)
[2017-01-03] MEDS: CALCIUM CARBONATE 500 MG CHEWABLE TAB CHEW SCH ×2 (09:19→22:23)
[2017-01-03] MEDS: RIFAXIMIN 550 MG TAB PO SCH ×2 (09:19→22:23)
[2017-01-03] MEDS: DICYCLOMINE HCL 20 MG TAB PO SCH ×3 (09:19→17:49)
[2017-01-03] MEDS: LISINOPRIL 5 MG TAB PO SCH (09:19)
[2017-01-03] MEDS: POTASSIUM PHOSPHATE MONOBASIC 500 MG TAB PO SCH ×2 (09:20→22:24)
[2017-01-03] MEDS: PANTOPRAZOLE SODIUM 40 MG VIAL IV SCH (09:21)
--- NOTE | 2017-01-03 11:59 | HHI.GIFU ---
Subjective Remarks Pt resting in bed, says he feels good today but achey. His appetite is good. He has had 3 loose bowel movements so far today. Objective Vitals I&O Vital Signs Date Time Temp Pulse Resp B/P Pulse Ox O2 Delivery O2 Flow Rate FiO2 01/03/17 07:44 96.9 97 18 133/86 97 01/03/17 04:00 96.0 68 18 165/91 99 01/03/17 04:00 98.6 98 18 111/70 97 01/03/17 04:00 96.0 68 18 165/91 99 01/03/17 00:00 98.7 105 18 122/80 98 01/02/17 20:00 97.5 96 18 147/99 96 01/02/17 16:12 96.4 95 18 125/86 100 01/02/17 12:22 97.3 92 18 154/92 100 I/O 01/02/17 01/02/17 01/02/17 01/03/17 01/03/17 01/03/17 07:00 15:00 23:00 07:00 15:00 23:00 Intake Total 120 ml 360 ml 360 ml Output Total 900 ml Balance -900 ml 120 ml 360 ml 360 ml Intake Oral 120 ml 360 ml 360 ml Output Urine Total 900 ml # Voids 2 2 3 # Bowel Movements 1 2 3 1 Laboratory Laboratory Tests Test 01/03/17 06:57 Sodium Level 137 Potassium Level 4.7 Chloride Level 103 Carbon Dioxide Level 27.8 Anion Gap 6 Blood Urea Nitrogen 11 Creatinine 0.61 Estimat Glomerular Filtration 144 Rate Random Glucose 151 Calcium Level 8.0 Imaging Last Impressions Sacrum/Coccyx MRI 01/01/17 0000 Signed Impressions: Service Date/Time: Sunday, January 01, 2017 11:04 - CONCLUSION: 1. Negative MRI of the sacrum. 2. MRI of the lumbar spine revealed a large central to right-sided disc at L5-S1. Ganesh Jaquez MD FACR Lumbar Spine MRI 01/01/17 0000 Signed Impressions: Service Date/Time: Sunday, January 01, 2017 11:04 - CONCLUSION: 1. Large disc herniation at L5-S1 to the right. 2. I do not see evidence for an inflammatory process. Ganesh Jaquez MD FACR Chest X-Ray 12/14/16 0000 Signed Impressions: Service Date/Time: December 18:44 - CONCLUSION: Improved right lower lobe infiltrate. Kan Borges MD Head CT 12/02/16 0000 Signed Impressions: Service Date/Time: Friday, December 02, 2016 14:39 - CONCLUSION: No acute disease. Kan Altamirano MD Abdomen/Pelvis CT 11/28/16 0054 Signed Impressions: Service Date/Time: Monday, November 28, 2016 01:47 - CONCLUSION: Severe constipation. No acute CT findings. Kan Lyons MD Physical Exam HEENT:Normocephalic; atraumatic; no jaundice. CHEST: CTA CARDIAC: tachycardic ABDOMEN: Soft, nondistended, mild left abdominal tenderness; no hepatosplenomegaly; bowel sounds are present in all four quadrants. EXTREMITIES: No clubbing, cyanosis, or edema. MEDICAL FEE CLERK: No focal deficits; alert and oriented Assessment and Plan Plan ASSESSMENT: - Abdominal pain mild and diffuse, diarrhea ( negative for C-diff), stool cx negative. Abdomen/Pelvis CT (11/28/16)----> Severe constipation. No acute CT findings. S/P EGD/colonoscopy on (11/29/16) showed esophagitis, poor colonic prep, no signs of bleeding. Pathology acutely inflamed and markedly reactive ulcerated squamous mucosa with a small number budding yeast in the superficial squamous layers consistent with Claudia esophagitis. S/P Colonoscopy with 2 day prep (12/04/16)---> ulceration, colitis in descending sigmiod, rectum, s/p biopsies , retroflexed views medium internal hemorrhoids, internal hemorrhoids, external hemorrhoids. Pathology colonic mucosal biopsy without significant histopathologic abnormality malady negative for colitis and ulceration in the descending colon ulcer biopsy, sigmoid colon with mild acute nonspecific colitis, rectal biopsy with acute colitis exhibiting ischemic features S/P GS evaluation. Canasa Suppository. Pain has subsided, but was having persistent diarrhea and therefore had flexible sigmoidoscopy (12/13/16)---> mild colitis, probably nonspecific, pathology with colonic mucosa without significant histologic abnormality. Recommended to continue Canasa, Xifaxan, Creon, Canasa, Lactinex, Lomotil, Dicyclomine. Mag oxide po was discontinued. CDiff (-) on 12/08 esd negative. Reconsulted for diarrhea/incontinence. MRI of the spine/scarum as above. S/P neurosurgical eval. Pt reports 3 BMs, consistent with EMR. - Claudia esophagitis. PPI. S/P Diflucan. - Anemia (normocytic, normochromic )- likely multifactorial. no bleeding , hgb stable - Failure to thrive/ wt loss, IMPROVING. - Sepsis. IMPROVED, ID following. - AKF Resolved - Fibromyalgia/ HTN, CAD, DM per attending Plan: - JHONY - Cont. PPI - Cont. Canasa - Cont. Xifaxan - Cont. Creon - Cont. Lactinex - Cont. Lomotil - Cont. Dicyclomine - Monitor stool output - Monitor HH - Transfuse as needed - Consider rck C Diff if worsening diarrhea - Patient seen and examined by Dr. Zhu and myself and this note is written on his behalf. Jolly Restrepo Jan 03, 2017 11:59
[2017-01-03 12:05] VITALS: BP 127/83; PULSE 98; RESP 18; TEMP 97.5; O2SAT 98
[2017-01-03] MEDS: FERROUS SULFATE 325 MG (65 MG ELEMENTAL IRON) TAB PO SCH ×2 (13:03→17:49)
--- NOTE | 2017-01-03 13:23 | HHI.PR ---
Subjective Remarks Follow up diarrhea, pain. Diarrhea is improving. Stools are still loose, but patient no longer has fecal incontinence. Denies nausea/vomiting. Still feels weak, but strength is improving. Objective Vitals Vital Signs Date Time Temp Pulse Resp B/P Pulse Ox O2 Delivery O2 Flow Rate FiO2 01/03/17 12:05 97.5 98 18 127/83 98 01/03/17 07:44 96.9 97 18 133/86 97 01/03/17 04:00 96.0 68 18 165/91 99 01/03/17 04:00 98.6 98 18 111/70 97 01/03/17 04:00 96.0 68 18 165/91 99 01/03/17 00:00 98.7 105 18 122/80 98 01/02/17 20:00 97.5 96 18 147/99 96 01/02/17 16:12 96.4 95 18 125/86 100 I/O 01/02/17 01/02/17 01/02/17 01/03/17 01/03/17 01/03/17 07:00 15:00 23:00 07:00 15:00 23:00 Intake Total 120 ml 360 ml 360 ml Output Total 900 ml Balance -900 ml 120 ml 360 ml 360 ml Intake Oral 120 ml 360 ml 360 ml Output Urine Total 900 ml # Voids 2 2 3 # Bowel Movements 1 2 3 1 Result Diagram: 12/31/16 0716 01/03/17 0657 Imaging Last Impressions Sacrum/Coccyx MRI 01/01/17 0000 Signed Impressions: Service Date/Time: Sunday, January 01, 2017 11:04 - CONCLUSION: 1. Negative MRI of the sacrum. 2. MRI of the lumbar spine revealed a large central to right-sided disc at L5-S1. Ganesh Jaquez MD FACR Lumbar Spine MRI 01/01/17 0000 Signed Impressions: Service Date/Time: Sunday, January 01, 2017 11:04 - CONCLUSION: 1. Large disc herniation at L5-S1 to the right. 2. I do not see evidence for an inflammatory process. Ganesh Jaquez MD FACR Chest X-Ray 12/14/16 0000 Signed Impressions: Service Date/Time: December 18:44 - CONCLUSION: Improved right lower lobe infiltrate. Kan Borges MD Head CT 12/02/16 0000 Signed Impressions: Service Date/Time: Friday, December 02, 2016 14:39 - CONCLUSION: No acute disease. Kan Altamirano MD Abdomen/Pelvis CT 11/28/16 0054 Signed Impressions: Service Date/Time: Monday, November 28, 2016 01:47 - CONCLUSION: Severe constipation. No acute CT findings. Kan Lyons MD Objective Remarks General: Thin male in no acute distress. Heart: Regular rate and rhythm. No murmur. Lungs: Clear to auscultation bilaterally. No wheezes, rales, or rhonchi. Breathing is nonlabored. Abdomen: Soft, nontender, nondistended. Active bowel sounds. Extremities: No lower extremity edema. Psych: Alert and oriented. Procedures 12/13/16 flexible sigmoidoscopy Urinary Catheter: No Vascular Central Line Catheter: No A/P Problem List: (1) Severe sepsis ICD Code: A41.9 Status: Resolved (2) Metabolic encephalopathy ICD Code: G93.41 Status: Resolved (3) Diarrhea ICD Code: R19.7 Status: Acute (4) FELICITAS (acute kidney injury) ICD Code: N17.9 Status: Resolved (5) Hypothermia ICD Code: T68.XXXA Status: Acute (6) Hyperglycemia ICD Code: R73.9 Status: Acute (7) Anemia ICD Code: D64.9 Status: Chronic (8) Constipation ICD Code: K59.00 Status: Resolved (9) Hypocalcemia ICD Code: E83.51 Status: Resolved (10) Leukopenia ICD Code: D72.819 Status: Acute Assessment and Plan 1. Severe sepsis secondary to GI source, possible pneumonia: Resolved. 2. Metabolic encephalopathy: Secondary to sepsis. Resolved. 3. Diarrhea: Stool studies are negative. Diarrhea likely secondary to colitis. Continue Lactinex, rifaximin, Lomotil. Had worsened yesterday, somewhat better today. Appreciate GI recommendations. 4. Acute kidney injury: Improved. 5. Hypothermia: Intermittent episodes during this hospitalization. Likely secondary to adrenal insufficiency. 6. Hyperglycemia: Hemoglobin A1c 6.2. Monitor Accu-Cheks and cover with sliding scale insulin. 7. Anemia: Patient has received 3 units PRBCs during this hospitalization. H/H stable. 8. Electrolyte abnormalities: Likely secondary to malnutrition. Improved. 9. Leukopenia: Likely secondary to sepsis, acute infection/illness. Monitor labs. Improved. 10. Sacral decubitus ulcers: Continue wound care. Specialty bed ordered. Reposition patient every 2 hours. 11. GI prophylaxis: PPI. 12. DVT prophylaxis: SCDs. Avoid chemical prophylaxis secondary to anemia. 13. Hypomagnesemia: Improved. 14. Hypertension: Continue lisinopril. 15. Lumbar spine disc herniation: Appreciate neurosurgery recommendations. Conservative management at this time. Discharge Planning Patient has no funding for home health or SNF. Currently not safe for discharge home. Continue PT as inpatient. May consider transfer to [place] if improvement is slow. Problem Qualifiers (1) Anemia: Te Pyle MD Jan 03, 2017 13:23
[2017-01-03 15:53] VITALS: BP 118/75; PULSE 104; RESP 18; TEMP 98.5; O2SAT 98
[2017-01-03 20:00] VITALS: BP 134/92; PULSE 110; RESP 18; TEMP 97.1; O2SAT 99
[2017-01-03] MEDS: MESALAMINE 1000 MG SUPP RECTAL SCH (21:00)
[2017-01-03] MEDS: NYSTATIN 100,000 U/GM PWD 15 GM BTL TOPICAL PRN (22:51)
[2017-01-04] VITALS: BP 132/94; PULSE 87; RESP 18; TEMP 97; O2SAT 99
[2017-01-04] MEDS: LACTATED RINGER'S 1000 ML INJ 1,000 ML IV SCH ×2 (02:00→12:57)
[2017-01-04] MEDS: DIPHENOXYLATE/ATROPINE 2.5 MG/0.025 MG TAB PO SCH ×3 (03:04→12:57)
[2017-01-04 04:00] VITALS: BP 128/85; PULSE 102; RESP 18; TEMP 97; O2SAT 96
[2017-01-04] MEDS: CHLORHEXIDINE GLUCONATE 2 % 1 PACK (2 CLOTHS) TOP SCH (04:00)
[2017-01-04] MEDS: INSULIN ASPART SUPPLEMENTAL SCALE SQ SCH ×3 (06:32→15:51)
[2017-01-04] MEDS: LACTOBACILLUS ACIDOPHILUS TAB PO SCH ×2 (06:33→12:56)
[2017-01-04] MEDS: CHOLESTYRAMINE 4 GM PACKET PO SCH (06:33)
[2017-01-04 08:32] VITALS: BP 151/95; PULSE 106; RESP 16; TEMP 98.3; O2SAT 97
[2017-01-04] MEDS: NYSTATIN 100,000 U/GM PWD 15 GM BTL TOPICAL SCH (09:00)
[2017-01-04] MEDS: RIFAXIMIN 550 MG TAB PO SCH (09:58)
[2017-01-04] MEDS: CALCIUM CARBONATE 500 MG CHEWABLE TAB CHEW SCH (09:58)
[2017-01-04] MEDS: PANTOPRAZOLE SODIUM 40 MG VIAL IV SCH (09:58)
[2017-01-04] MEDS: SODIUM CHLORIDE 0.9% FLUSH 5 ML FLUSH IV FLUSH SCH (09:58)
[2017-01-04] MEDS: LISINOPRIL 5 MG TAB PO SCH (09:58)
[2017-01-04] MEDS: DICYCLOMINE HCL 20 MG TAB PO SCH ×3 (09:59→16:23)
[2017-01-04] MEDS: CALCIUM/VITAMIN D 250 MG/125 U TAB PO SCH (09:59)
[2017-01-04] MEDS: POTASSIUM PHOSPHATE MONOBASIC 500 MG TAB PO SCH (09:59)
[2017-01-04] MEDS: LIPASE/PROTEASE/AMYLASE (24,000/76,000/120,000) CAP PO SCH ×3 (09:59→16:22)
[2017-01-04] MEDS: NYSTATIN 100,000 U/GM PWD 15 GM BTL TOPICAL PRN (10:00)
[2017-01-04] MEDS: ACETAMINOPHEN/HYDROcodone 325 MG/5 MG TAB PO PRN ×2 (10:07→16:23)
--- NOTE | 2017-01-04 11:05 | HHI.PR ---
Subjective Remarks Follow-up diarrhea, anemia, pneumonia. Patient seen today. Reports he still has diarrhea, but consistency is that of "mashed potatoes." Continues to feel weak. Reports being cold. Denies pain and discomfort. Denies SOB/ dyspnea. Denies chest pain, palpitations, headaches, dizziness. Denies fevers, n/v. Objective Vitals Vital Signs Date Time Temp Pulse Resp B/P Pulse Ox O2 Delivery O2 Flow Rate FiO2 01/04/17 08:32 98.3 106 16 151/95 97 01/04/17 04:00 97.0 102 18 128/85 96 01/04/17 00:00 97.0 87 18 132/94 99 01/03/17 20:00 97.1 110 18 134/92 99 01/03/17 15:53 98.5 104 18 118/75 98 01/03/17 12:05 97.5 98 18 127/83 98 I/O 01/03/17 01/03/17 01/03/17 01/04/17 01/04/17 01/04/17 07:00 15:00 23:00 07:00 15:00 23:00 Intake Total 360 ml 960 ml 750 ml 240 ml Output Total 200 ml 700 ml Balance 360 ml 960 ml 550 ml -460 ml Intake Oral 360 ml 960 ml 750 ml 240 ml Output Urine Total 200 ml 700 ml # Voids 3 3 3 # Bowel Movements 1 2 Result Diagram: 12/31/16 0716 01/03/17 0657 Imaging Last Impressions Sacrum/Coccyx MRI 01/01/17 0000 Signed Impressions: Service Date/Time: Sunday, January 01, 2017 11:04 - CONCLUSION: 1. Negative MRI of the sacrum. 2. MRI of the lumbar spine revealed a large central to right-sided disc at L5-S1. Ganesh Jaquez MD FACR Lumbar Spine MRI 01/01/17 0000 Signed Impressions: Service Date/Time: Sunday, January 01, 2017 11:04 - CONCLUSION: 1. Large disc herniation at L5-S1 to the right. 2. I do not see evidence for an inflammatory process. Ganesh Jaquez MD FACR Chest X-Ray 12/14/16 0000 Signed Impressions: Service Date/Time: December 18:44 - CONCLUSION: Improved right lower lobe infiltrate. Kan Borges MD Head CT 12/02/16 0000 Signed Impressions: Service Date/Time: Friday, December 02, 2016 14:39 - CONCLUSION: No acute disease. Kan Altamirano MD Abdomen/Pelvis CT 11/28/16 0054 Signed Impressions: Service Date/Time: Monday, November 28, 2016 01:47 - CONCLUSION: Severe constipation. No acute CT findings. Kan Lyons MD Objective Remarks GENERAL: This is a thin appearing, well-developed patient, in no apparent distress. SKIN: Warm and dry. Flaking. HEENT: Normocephalic. Pupils equal round and reactive. Nose without bleeding. Airway patent. NECK: Trachea midline. No JVD. Supple. CARDIOVASCULAR: Regular rate and rhythm without murmurs, gallops, or rubs. RESPIRATORY: Clear to auscultation. Breath sounds equal bilaterally. No wheezes , rales, or rhonchi. GASTROINTESTINAL: Abdomen soft, non-tender, nondistended. Bowel Sounds normoactive x4. MUSCULOSKELETAL: Extremities without clubbing, cyanosis, or edema. NEUROLOGICAL: Awake and alert. No focal neuro deficit. BOWLES weakly. Normal speech. Procedures 12/13/16 flexible sigmoidoscopy A/P Problem List: (1) Severe sepsis ICD Code: A41.9 Status: Resolved (2) Metabolic encephalopathy ICD Code: G93.41 Status: Resolved (3) Diarrhea ICD Code: R19.7 Status: Acute (4) FELICITAS (acute kidney injury) ICD Code: N17.9 Status: Resolved (5) Hypothermia ICD Code: T68.XXXA Status: Acute (6) Hyperglycemia ICD Code: R73.9 Status: Acute (7) Anemia ICD Code: D64.9 Status: Chronic (8) Constipation ICD Code: K59.00 Status: Resolved (9) Hypocalcemia ICD Code: E83.51 Status: Resolved (10) Leukopenia ICD Code: D72.819 Status: Acute Assessment and Plan On 11/28/16, this 41-year-old male with a number of chronic medical problems including fibromyalgia, failure to thrive, was brought in by EMS for falling, fatigue, altered mental status. His mother is with him and reports that pt. had both long-term and short-term memory loss. Mom states that he is not been eating or taking his medications. On arrival to the emergency department, he had 5 or 6 very large and very loose bowel movements which were brown in color. Stool tested negative for C. difficile DNA PCR. The patient was very tachycardic and hypotensive as well as hypothermic in the emergency department. He received 4 L of normal saline IV and was started on norepinephrine. His laboratory data is notable for a lactate of 4.8, sodium 128, chloride 96, bicarbonate 15, creatinine 1.55, hemoglobin of 7.5, white blood cell count of 10.5. His random cortisol is 47. He was admitted to critical-care medicine for septic shock and multiorgan system dysfunction. 1. Severe sepsis secondary to GI source, possible pneumonia: Resolved. 2. Metabolic encephalopathy: Secondary to sepsis. Resolved. 3. Diarrhea: Stool studies are negative. Diarrhea likely secondary to colitis. Continue Lactinex, rifaximin, Lomotil. Improved today. Appreciate GI recommendations. Will recheck for C. difficile if diarrhea has worsened per GI recommendation. Continue with PPI, Canasa, cefoxitin, Creon, Lactinex, Lomotil , dicyclomine. 4. Acute kidney injury: Improved. 5. Hypothermia: Intermittent episodes during this hospitalization. Likely secondary to adrenal insufficiency. 6. Hyperglycemia: Hemoglobin A1c 6.2. Monitor Accu-Cheks and cover with sliding scale insulin. 7. Anemia: Patient has received 3 units PRBCs during this hospitalization. H/H stable. Continue to monitor H&H. And tinea iron supplements. 8. Electrolyte abnormalities: Likely secondary to malnutrition. Improved. 9. Leukopenia: Likely secondary to sepsis, acute infection/illness. Monitor labs. Improved. 10. Sacral decubitus ulcers: Continue wound care. Specialty bed ordered. Reposition patient every 2 hours. 11. GI prophylaxis: PPI. 12. DVT prophylaxis: SCDs. Avoid chemical prophylaxis secondary to anemia. 13. Hypomagnesemia: Improved. 14. Hypertension: Continue lisinopril. 15. Lumbar spine disc herniation: Appreciate neurosurgery recommendations. Conservative management at this time. 16. Tachycardia: May be related to adrenal insufficiency. TSH was previously checked and it is within normal. Continue with IV fluid hydration. Start atenolol. Discussed with patient, nursing Discharge Planning Consider DC to SNF or with home health, arrangements are being processed by case management. Problem Qualifiers (1) Anemia: Desiree Matamoros Jan 04, 2017 11:05 Mary Chiang MD Jan 08, 2017 19:51
--- NOTE | 2017-01-04 12:56 | HHI.GIFU ---
Subjective Remarks Pt reports that he had 2 BM's yesterday and only 1 today. He has mild abdominal cramping. He is tolerating his diet and "cannot get enough to eat." Objective Vitals I&O Vital Signs Date Time Temp Pulse Resp B/P Pulse Ox O2 Delivery O2 Flow Rate FiO2 01/04/17 08:32 98.3 106 16 151/95 97 01/04/17 04:00 97.0 102 18 128/85 96 01/04/17 00:00 97.0 87 18 132/94 99 01/03/17 20:00 97.1 110 18 134/92 99 01/03/17 15:53 98.5 104 18 118/75 98 I/O 01/03/17 01/03/17 01/03/17 01/04/17 01/04/17 01/04/17 07:00 15:00 23:00 07:00 15:00 23:00 Intake Total 360 ml 960 ml 750 ml 240 ml Output Total 200 ml 700 ml Balance 360 ml 960 ml 550 ml -460 ml Intake Oral 360 ml 960 ml 750 ml 240 ml Output Urine Total 200 ml 700 ml # Voids 3 3 3 # Bowel Movements 1 2 Imaging Last Impressions Sacrum/Coccyx MRI 01/01/17 0000 Signed Impressions: Service Date/Time: Sunday, January 01, 2017 11:04 - CONCLUSION: 1. Negative MRI of the sacrum. 2. MRI of the lumbar spine revealed a large central to right-sided disc at L5-S1. Ganesh Jaquez MD FACR Lumbar Spine MRI 01/01/17 0000 Signed Impressions: Service Date/Time: Sunday, January 01, 2017 11:04 - CONCLUSION: 1. Large disc herniation at L5-S1 to the right. 2. I do not see evidence for an inflammatory process. Ganesh Jaquez MD FACR Chest X-Ray 12/14/16 0000 Signed Impressions: Service Date/Time: December 18:44 - CONCLUSION: Improved right lower lobe infiltrate. Kan Borges MD Head CT 12/02/16 0000 Signed Impressions: Service Date/Time: Friday, December 02, 2016 14:39 - CONCLUSION: No acute disease. Kan Altamirano MD Abdomen/Pelvis CT 11/28/16 0054 Signed Impressions: Service Date/Time: Monday, November 28, 2016 01:47 - CONCLUSION: Severe constipation. No acute CT findings. Kan Lyons MD Physical Exam HEENT:Normocephalic; atraumatic; no jaundice. CHEST: CTA CARDIAC: tachycardic ABDOMEN: Soft, nondistended, mild diffuse abdominal tenderness; no hepatosplenomegaly; bowel sounds are present in all four quadrants. EXTREMITIES: No clubbing, cyanosis, or edema. 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 Abdomen/Pelvis CT (11/28/16)----> Severe constipation. No acute CT findings. S/P EGD/colonoscopy on (11/29/16) showed esophagitis, poor colonic prep, no signs of bleeding. Pathology acutely inflamed and markedly reactive ulcerated squamous mucosa with a small number budding yeast in the superficial squamous layers consistent with Claudia esophagitis. S/P Colonoscopy with 2 day prep (12/04/16)---> ulceration, colitis in descending sigmiod, rectum, s/p biopsies , retroflexed views medium internal hemorrhoids, internal hemorrhoids, external hemorrhoids. Pathology colonic mucosal biopsy without significant histopathologic abnormality malady negative for colitis and ulceration in the descending colon ulcer biopsy, sigmoid colon with mild acute nonspecific colitis, rectal biopsy with acute colitis exhibiting ischemic features S/P GS evaluation. Canasa Suppository. Pain has subsided, but was having persistent diarrhea and therefore had flexible sigmoidoscopy (12/13/16)---> mild colitis, probably nonspecific, pathology with colonic mucosa without significant histologic abnormality. Recommended to continue Canasa, Xifaxan, Creon, Canasa, Lactinex, Lomotil, Dicyclomine. Mag oxide po was discontinued. CDiff (-) on 12/08 esd negative. MRI of the spine/scarum as above. S/P neurosurgical eval. States that he had 2-3 BM's yesterday and 1 today. IMPROVING. - Claudia esophagitis. PPI. S/P Diflucan. - Anemia (normocytic, normochromic )- likely multifactorial. no bleeding , hgb stable - Failure to thrive/ wt loss, IMPROVING. - Sepsis. IMPROVED, ID following. - AKF Resolved - Fibromyalgia/ HTN, CAD, DM per attending Plan: - JHONY - Cont. PPI - Cont. Canasa - Cont. Xifaxan - Cont. Creon - Cont. Lactinex - Cont. Lomotil - Cont. Dicyclomine - Monitor stool output - GI will sign off, please reconsult as needed - Patient seen and examined by Dr. Zhu and myself and this note is written on his behalf. Jolly Restrepo Jan 04, 2017 12:56
[2017-01-04] MEDS: FERROUS SULFATE 325 MG (65 MG ELEMENTAL IRON) TAB PO SCH ×2 (12:57→16:23)
[2017-01-04 13:06] VITALS: BP 125/75; PULSE 107; RESP 16; TEMP 99.1; O2SAT 96
[2017-01-04] MEDS ORDERED: CALC500C16 CHEW (13:13)
[2017-01-04] MEDS ORDERED: K-PHTAB PO (13:13)
[2017-01-04] MEDS ORDERED: FERR325T PO (13:13)
[2017-01-04] MEDS ORDERED: XIFA550T4 PO (13:13)
[2017-01-04] MEDS ORDERED: LACT PO (13:13)
[2017-01-04] MEDS ORDERED: NYST10007 TOPICAL (13:13)
[2017-01-04] MEDS ORDERED: CREON24 PO (13:13)
--- NOTE | 2017-01-04 13:13 | HHI.DCPOC ---
Discharge Care Plan Goals to Promote Your Health * To prevent worsening of your condition and complications * To maintain your health at the optimal level Directions to Meet Your Goals Take your medications as prescribed Follow your dietary instruction Follow activity as directed Keep your appointments as scheduled Take your immunizations and boosters as scheduled If your symptoms worsen call your PCP, if no PCP go to Urgent Care Center or Emergency Room Smoking is Dangerous to Your Health. Avoid second hand smoke Call the 24-hour hour crisis hotline for domestic abuse at Mary Chiang MD Jan 04, 2017 13:13
[2017-01-04] MEDS ORDERED: MAGN400T2 PO (13:17)
[2017-01-04] MEDS ORDERED: CANA10002 RECTAL (13:52)
[2017-01-04] MEDS ORDERED: CHOL4POW4 PO (13:52)
[2017-01-04] MEDS ORDERED: PANT20TA2 PO (13:52)
[2017-01-04] MEDS ORDERED: DRIS50002 PO (13:52)
[2017-01-04] MEDS ORDERED: BENT20TA PO (13:52)
--- NOTE | 2017-01-04 13:55 | HHI.FF ---
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 My clinical findings support the need for the requested home health care services because: Ltd mobility - disease progression Patient has SOB I certify that my clinical findings support that this patient is homebound because: Post-op weakness Unsteady gait/balance Need for psychosocial assistance Mary Chiang MD Jan 04, 2017 13:55
[2017-01-04] MEDS ORDERED: NORC5TAB PO (14:05)
[2017-01-04] MEDS ORDERED: BACT800T5 PO (14:09)
--- NOTE | 2017-01-04 14:17 | HHI.DS ---
Discharge Summary Admission Date Nov 28, 2016 at 03:38 Discharge Date: Jan 04, 2017 Admitting Diagnosis PSA, Septic Shock (1) Severe sepsis ICD Code: A41.9 Diagnosis: Principal (2) Metabolic encephalopathy ICD Code: G93.41 Diagnosis: Principal (3) Diarrhea ICD Code: R19.7 Diagnosis: Secondary (4) FELICITAS (acute kidney injury) ICD Code: N17.9 (5) Hypothermia ICD Code: T68.XXXA (6) Hyperglycemia ICD Code: R73.9 (7) Anemia ICD Code: D64.9 Diagnosis: Principal (8) Constipation ICD Code: K59.00 (9) Hypocalcemia ICD Code: E83.51 Diagnosis: Secondary (10) Leukopenia ICD Code: D72.819 Diagnosis: Principal Procedures 12/13/16 flexible sigmoidoscopy Brief History - From Admission This is a 41-year-old male with a number of chronic medical problems including fibromyalgia, failure to thrive, who is brought in by EMS for falling, fatigue, altered mental status. His mother is with him and reports that over the last few days to even a week or 2, he has had both long-term and short-term memory loss. Mom states that he is not been eating or taking his medications. On arrival to the emergency department, he had 5 or 6 very large and very loose bowel movements which were brown in color. These percent off and tested negative for C. difficile DNA PCR. The patient was very tachycardic and hypotensive as well as hypothermic in the emergency department. He received 4 L of normal saline IV and was started on norepinephrine. His laboratory data is notable for a lactate of 4.8, sodium 128, chloride 96, bicarbonate 15, creatinine 1.55, hemoglobin of 7.5, white blood cell count of 10.5. His random cortisol is 47. Critical-care medicine's consult to evaluate and manage his presumed septic shock and multiorgan system dysfunction. CBC/BMP: 12/31/16 0716 01/03/17 0657 Significant Findings Laboratory Tests Test 01/03/17 06:57 Random Glucose 151 MG/DL (74-106) Calcium Level 8.0 MG/DL (8.5-10.1) Imaging Last Impressions Sacrum/Coccyx MRI 01/01/17 0000 Signed Impressions: Service Date/Time: Sunday, January 01, 2017 11:04 - CONCLUSION: 1. Negative MRI of the sacrum. 2. MRI of the lumbar spine revealed a large central to right-sided disc at L5-S1. Ganesh Jaquez MD FACR Lumbar Spine MRI 01/01/17 0000 Signed Impressions: Service Date/Time: Sunday, January 01, 2017 11:04 - CONCLUSION: 1. Large disc herniation at L5-S1 to the right. 2. I do not see evidence for an inflammatory process. Ganesh Jaquez MD FACR Chest X-Ray 12/14/16 0000 Signed Impressions: Service Date/Time: December 18:44 - CONCLUSION: Improved right lower lobe infiltrate. Kan Borges MD Head CT 12/02/16 0000 Signed Impressions: Service Date/Time: Friday, December 02, 2016 14:39 - CONCLUSION: No acute disease. Kan Altamirano MD Abdomen/Pelvis CT 11/28/16 0054 Signed Impressions: Service Date/Time: Monday, November 28, 2016 01:47 - CONCLUSION: Severe constipation. No acute CT findings. Kan Lyons MD PE at Discharge GENERAL: This is a thin appearing, well-developed patient, in no apparent distress. SKIN: Warm and dry. Flaking. HEENT: Normocephalic. Pupils equal round and reactive. Nose without bleeding. Airway patent. NECK: Trachea midline. No JVD. Supple. CARDIOVASCULAR: Regular rate and rhythm without murmurs, gallops, or rubs. RESPIRATORY: Clear to auscultation. Breath sounds equal bilaterally. No wheezes , rales, or rhonchi. GASTROINTESTINAL: Abdomen soft, non-tender, nondistended. Bowel Sounds normoactive x4. MUSCULOSKELETAL: Extremities without clubbing, cyanosis, or edema. NEUROLOGICAL: Awake and alert. No focal neuro deficit. BOWLES weakly. Normal speech. Pt update on day of discharge Patient seen today. Reports he still has diarrhea, but consistency is that of "mashed potatoes." Continues to feel weak. Reports being cold. Denies pain and discomfort. Denies SOB/ dyspnea. Denies chest pain, palpitations, headaches, dizziness. Denies fevers, n/v. Hospital Course On 11/28/16, this 41-year-old male with a number of chronic medical problems including fibromyalgia, failure to thrive, was brought in by EMS for falling, fatigue, altered mental status. His mother is with him and reports that pt. had both long-term and short-term memory loss. Mom states that he is not been eating or taking his medications. On arrival to the emergency department, he had 5 or 6 very large and very loose bowel movements which were brown in color. Stool tested negative for C. difficile DNA PCR. The patient was very tachycardic and hypotensive as well as hypothermic in the emergency department. He received 4 L of normal saline IV and was started on norepinephrine. His laboratory data is notable for a lactate of 4.8, sodium 128, chloride 96, bicarbonate 15, creatinine 1.55, hemoglobin of 7.5, white blood cell count of 10.5. His random cortisol is 47. He was admitted to critical-care medicine for septic shock and multiorgan system dysfunction. 1. Severe sepsis secondary to GI source, possible pneumonia: Resolved. 2. Metabolic encephalopathy: Secondary to sepsis. Resolved. 3. Diarrhea: Stool studies are negative. Diarrhea likely secondary to colitis. Continue Lactinex, rifaximin, Lomotil. Improved today. Appreciate GI recommendations. Will recheck for C. difficile if diarrhea has worsened per GI recommendation. Continue with PPI, Canasa, cefoxitin, Creon, Lactinex, Lomotil , dicyclomine. 4. Acute kidney injury: Improved. 5. Hypothermia: Intermittent episodes during this hospitalization. Likely secondary to adrenal insufficiency. 6. Hyperglycemia: Hemoglobin A1c 6.2. Monitor Accu-Cheks and cover with sliding scale insulin. 7. Anemia: Patient has received 3 units PRBCs during this hospitalization. H/H stable. Continue to monitor H&H. And tinea iron supplements. 8. Electrolyte abnormalities: Likely secondary to malnutrition. Improved. 9. Leukopenia: Likely secondary to sepsis, acute infection/illness. Monitor labs. Improved. 10. Sacral decubitus ulcers: Continue wound care. Specialty bed ordered. Reposition patient every 2 hours. 11. GI prophylaxis: PPI. 12. DVT prophylaxis: SCDs. Avoid chemical prophylaxis secondary to anemia. 13. Hypomagnesemia: Improved. 14. Hypertension: Continue lisinopril. 15. Lumbar spine disc herniation: Appreciate neurosurgery recommendations. Conservative management at this time. 16. Tachycardia: May be related to adrenal insufficiency. TSH was previously checked and it is within normal. Continue with IV fluid hydration. Start atenolol low dose. Pt Condition on Discharge: Stable Discharge Disposition: Disch w/ Home Health Serv Discharge Time: <= 30 minutes Discharge Instructions DIET: Follow Instructions for: Diabetic Diet Activities you can perform: Regular-No Restrictions Follow up Referrals: Gastroenterology - 2 Weeks PCP Follow-up - 3-5 Days Wound Care Clinic - 3-5 Days New Medications: Atenolol (Atenolol) 25 Mg Tab 12.5 MG PO DAILY Blood Pressure Management #30 Ref 0 TAB Hydrocodone-Acetaminophen ([place]) 5-325 mg Tab 1 TAB PO Q6HR PRN PAIN #14 Ref 0 TAB Magnesium Oxide (Magnesium Oxide) 400 Mg Tab 400 MG PO DAILY Nutritional Supplement #15 Ref 0 TAB Pantoprazole (Pantoprazole) 20 Mg Tab 20 MG PO DAILY Reflux #30 Ref 0 TAB Sulfamethoxazole-Trimethoprim (Bactrim DS) 800-160 Mg Tab 1 TAB PO BID Infection #20 Ref 0 TAB Calcium Carbonate (Antacid) (Calcium Carbonate (Antacid)) 500 Mg Chew 500 MG CHEW Q12HR dyspepsia/hypocalcemia #30 EA Cholestyramine (Cholestyramine) 4 Gm/Pkt Powd 4 GM PO DAILY@06 gi #30 CONTAINER Dicyclomine (Bentyl) 20 Mg Tab 20 MG PO TID diarrhea #90 TAB Ergocalciferol (Drisdol) 50,000 Unit Cap 24538 UNITS PO Q7D vit D deficiency #10 CAP Ferrous Sulfate (Ferrous Sulfate) 325 Mg Tab 325 MG PO BID@12,17 iron deficiency anemia #60 TAB Lactobacillus Acidophilus (Acidophilus/l-Sporogenes) 1 Tab Tab 1 TAB PO Q8HR diarrhea #60 TAB Mesalamine Supp (Canasa Supp) 1,000 Mg Supp 1000 MG RECTAL HS diarrhea #30 SUPP Nystatin Topical (Nystop Topical) 100,000 Unit/Gm Powd 1 APPLIC TOPICAL DAILY PRN REDNESS #10 TUBE Pancrelipase (Creon) 24,000-76,000-120,000 Units Cap 1 CAP PO TID diarrhea #90 CAP Potassium Phosphate Monobasic (K-Phos) 500 Mg Tab 1000 MG PO Q12HR low K and Phos #30 TAB Rifaximin (Xifaxan) 550 Mg Tab 550 MG PO BID diarrhea #60 TAB Continued Medications: Metformin (Metformin) 500 Mg Tab 500 MG PO BIDPC With meals Blood Sugar Management #60 Ref 0 TAB Ondansetron (Zofran) 4 Mg Tab 4 MG PO Q6HR PRN NAUSEA OR VOMITING Ref [address] Chiang on 01/04/17 at 14:08. Written by Desiree Lala, acting as scribe for The documentation accurately reflects the work performed [id number] by me Dr. Chiang on 01/04/17 at 14:08. Desiree Matamoros Jan 04, 2017 14:17 Mary Chiang MD Jan 04, 2017 14:19
[2017-01-04] MEDS ORDERED: ATEN25TA PO (14:18)
[2017-01-04 16:45] VITALS: BP 142/90; PULSE 98; RESP 17; TEMP 96.5; O2SAT 95
[2017-01-05] MEDS ORDERED: ATENOLOL 25 MG TAB PO SCH (09:00)
== END 2017-01-04 19:02 | disposition home health service (06) | DRG 871 ==
LOC: NEPE 23:44 → NEDA 11-28 03:38 → HIME 11-28 06:35 → N05B 11-30 16:19
PROVIDERS: ADMIT Internal Medicine Critical Care Medicine; ATTEND Hospitalist
PROC: 30233N1 Transfusion of Nonautologous Red Blood Cells into Peripheral Vein, Percutaneous Approach (ICD-10-PCS; 2016-11-28)
PROC: 0DB38ZX Excision of Lower Esophagus, Via Natural or Artificial Opening Endoscopic, Diagnostic (ICD-10-PCS; principal; 2016-11-29 09:24)
PROC: 0DBM8ZX Excision of Descending Colon, Via Natural or Artificial Opening Endoscopic, Diagnostic (ICD-10-PCS; 2016-12-04)
PROC: 0DBN8ZX Excision of Sigmoid Colon, Via Natural or Artificial Opening Endoscopic, Diagnostic (ICD-10-PCS; 2016-12-04)
PROC: 0DBP8ZX Excision of Rectum, Via Natural or Artificial Opening Endoscopic, Diagnostic (ICD-10-PCS; 2016-12-04)
PROC: 0DBP8ZX Excision of Rectum, Via Natural or Artificial Opening Endoscopic, Diagnostic (ICD-10-PCS; 2016-12-13)
PROC: 0DBN8ZX Excision of Sigmoid Colon, Via Natural or Artificial Opening Endoscopic, Diagnostic (ICD-10-PCS; 2016-12-13)
DX: A41.9 Sepsis, unspecified organism (principal); G93.41 Metabolic encephalopathy; R65.21 Severe sepsis with septic shock; E43 Unspecified severe protein-calorie malnutrition; N17.9 Acute kidney failure, unspecified; K63.3 Ulcer of intestine; R64 Cachexia; J18.9 Pneumonia, unspecified organism; B37.81 Candidal esophagitis; E87.2 Acidosis; E87.1 Hypo-osmolality and hyponatremia; Z68.1 Body mass index [BMI] 19.9 or less, adult; J98.11 Atelectasis; E27.40 Unspecified adrenocortical insufficiency; L89.152 Pressure ulcer of sacral region, stage 2; K52.9 Noninfective gastroenteritis and colitis, unspecified; D69.6 Thrombocytopenia, unspecified; E86.0 Dehydration; M79.7 Fibromyalgia; R62.7 Adult failure to thrive; R68.0 Hypothermia, not associated with low environmental temperature; E11.65 Type 2 diabetes mellitus with hyperglycemia; I25.10 Atherosclerotic heart disease of native coronary artery without angina pectoris; K56.41 Fecal impaction; K64.4 Residual hemorrhoidal skin tags; K64.8 Other hemorrhoids; K59.00 Constipation, unspecified; E83.42 Hypomagnesemia; E83.51 Hypocalcemia; E87.6 Hypokalemia; D72.819 Decreased white blood cell count, unspecified; M47.817 Spondylosis without myelopathy or radiculopathy, lumbosacral region; M51.37 Other intervertebral disc degeneration, lumbosacral region; D63.8 Anemia in other chronic diseases classified elsewhere; E55.9 Vitamin D deficiency, unspecified; R29.6 Repeated falls; F14.10 Cocaine abuse, uncomplicated; E83.39 Other disorders of phosphorus metabolism; I10 Essential (primary) hypertension; E11.42 Type 2 diabetes mellitus with diabetic polyneuropathy; K21.9 Gastro-esophageal reflux disease without esophagitis; Z79.84 Long term (current) use of oral hypoglycemic drugs
CPT/HCPCS: 36430; 51702; 70450; 71010; 72158; 72197; 74176; 76937; 80048; 80053; 80307; 81001; 82306; 82533; 82550; 82607; 82728; 82746; 82948; 83036; 83540; 83550; 83605; 83735; 84100; 84132; 84155; 84439; 84443; 84484; 85014; 85018; 85025; 85027; 86703; 86850; 86900; 86901; 86920; 87015; 87040; 87070; 87077; 87116; 87186; 87205; 87206; 87328; 87329; 87493; 87506; 87641; 88305; 88312; 93005; 94150; 94640; 94664; 94667; 96365; 96367; 96368; 96375; A9579; C9113; J0610; J0692; J0744; J1170; J1644; J1815; J1940; J3411; J3475; J3480; J7030; J7050; J7120; P9016

== ENCOUNTER 2017-01-10 12:05 | Emergency (ER) | payer MEDICAID, OTHER ==
[~2017-01-10] VITALS: Ht 180.3 cm; Wt 59.0 kg
[~2017-01-10 12:05] MED LIST changes: +ATEN25TA PO; +BACT800T5 PO; +BENT20TA PO; +CALC500C16 CHEW; +CANA10002 RECTAL; +CHOL4POW4 PO; -COLL30OI3 TOP; +CREON24 PO; +DRIS50002 PO; -DRON2.5 PO; -ERGO50000 PO; +FERR325T PO; -IBUP800 PO; +K-PHTAB PO; -KPHOSO PO; +LACT PO; +MAGN400T2 PO; -MEGE40TA PO; +METF500T PO; +NORC5TAB PO; +NYST10007 TOPICAL; +PANT20TA2 PO; -THERM PO; -THIA100T PO; +XIFA550T4 PO
[2017-01-10 12:07] VITALS: BP 91/63; PULSE 106; RESP 20; TEMP 98.3; O2SAT 97
[2017-01-10 13:24] VITALS: BP 121/78; PULSE 98; RESP 19; O2SAT 100
--- NOTE | 2017-01-10 13:37 | PD ---
HPI Chief Complaint: Pain: Acute or Chronic Time Seen by Provider: 13:22 Travel History International Travel<30 days: No Contact w/Intl Traveler<30days: No Traveled to known affect area: No History of Present Illness HPI This patient complains of left shoulder pain. 5 days ago he slipped and fell and landed on the left shoulder. He has pain there. Worse with movement. Severity is moderate. No alleviating factors. Patient was discharged from the hospital 8 days ago after a month long stay for severe failure to thrive and malnourishment. He had multiorgan failure and was in intensive care to start. From that standpoint he is improved. He still has poor appetite but has gained weight and is eating. PFSH Past Medical History Arthritis: Yes Asthma: No Autoimmune Disease: No Blood Disorders: No Anxiety: No Depression: Yes Heart Rhythm Problems: No Cancer: No Cardiovascular Problems: Yes High Cholesterol: Yes Chemotherapy: No Chest Pain: Yes Congestive Heart Failure: Yes COPD: No Cerebrovascular Accident: No Diabetes: Yes Patient Takes Glucophage: Yes Diminished Hearing: No Endocrine: Yes Fibromyalgia: Yes Gastrointestinal Disorders: Yes GERD: Yes Gout: Yes Genitourinary: Yes Headaches: No Hepatitis: Yes (C) Hiatal Hernia: No Hypertension: Yes Immune Disorder: No Implanted Vascular Access Dvce: Yes Kidney Stones: Yes (removed) Musculoskeletal: Yes Neurologic: Yes Psychiatric: Yes Reproductive: Yes (vasectomy) Respiratory: Yes Immunizations Current: Yes Migraines: No Radiation Therapy: No Renal Failure: No Seizures: No Sickle Cell Disease: No Sleep Apnea: No Thyroid Disease: No Ulcer: No Tetanus Vaccination: Unknown Past Surgical History Abdominal Surgery: Yes (RIGHT NEPHROLITHOTRIPSY, J TUBE removed) AICD: No Arteriovenous Shunt: No Body Medical Devices: LEFT HIP SURGERY Cardiac Surgery: No Ear Surgery: No Endocrine Surgery: No Eye Surgery: No Genitourinary Surgery: Yes (VASECTOMY) Gynecologic Surgery: No Insulin Pump: No Joint Replacement: Yes (LEFT HIP CURTIS/PIN) Neurologic Surgery: No Oral Surgery: No Pacemaker: No Thoracic Surgery: No Other Surgery: Yes (previously had peg tube) Social History Alcohol Use: Yes (occassionally) Tobacco Use: No Substance Use: No (hx of cocaine use) Allergies-Medications (Allergen,Severity, Reaction): Coded Allergies: *MDRO Multi-Drug Resistant Organism (Verified Adverse Reaction, Unknown, MRSA, 01/10/17) MRSA PCR screen POSITIVE - 11/28/16 Reported Meds & Prescriptions Reported Meds & Active Scripts Active Atenolol 25 Mg Tab 12.5 Mg PO DAILY Bactrim DS (Sulfamethoxazole-Trimethoprim) 800-160 Mg Tab 1 Tab PO BID [place] (Hydrocodone-Acetaminophen) 5-325 mg Tab 1 Tab PO Q6HR PRN Pantoprazole (Pantoprazole Sodium) 20 Mg Tab 20 Mg PO DAILY [place]asa Supp (Mesalamine) 1,000 Mg Supp 1,000 Mg RECTAL HS Drisdol (Ergocalciferol) 50,000 Unit Cap 50,000 Units PO Q7D Bentyl (Dicyclomine HCl) 20 Mg Tab 20 Mg PO TID Cholestyramine 4 Gm/Pkt Powd 4 Gm PO DAILY@06 Magnesium Oxide 400 Mg Tab 400 Mg PO DAILY Xifaxan (Rifaximin) 550 Mg Tab 550 Mg PO BID K-Phos (Potassium Phosphate Monobasic) 500 Mg Tab 1,000 Mg PO Q12HR Creon (Amylase/Lipase/Protease) 24,000-76,000-120,000 Units Cap 1 Cap PO TID Nystop Topical (Nystatin Topical) 100,000 Unit/Gm Powd 1 Applic TOPICAL DAILY PRN Acidophilus/l-Sporogenes (Lactobacillus Acidophilus) 1 Tab Tab 1 Tab PO Q8HR Ferrous Sulfate 325 Mg Tab 325 Mg PO BID@17 Calcium Carbonate (Antacid) 500 Mg Chew 500 Mg CHEW Q12HR Reported Zofran (Ondansetron HCl) 4 Mg Tab 4 Mg PO Q6HR PRN Metformin (Metformin HCl) 500 Mg Tab 500 Mg PO BIDPC With meals Review of Systems General / Constitutional: Positive: Weight Gain, No: Fever Eyes: No: Visual changes HENT: No: Headaches Cardiovascular: No: Chest Pain or Discomfort Respiratory: No: Shortness of Breath Gastrointestinal: Positive: Loss of Appetite, No: Abdominal Pain Genitourinary: No: Dysuria Musculoskeletal: Positive: Limited ROM, Pain Skin: No Rash Neurologic: No: Weakness Psychiatric: No: Depression Endocrine: No: Polydipsia Hematologic/Lymphatic: No: Easy Bruising Physical Exam Narrative GENERAL: Thin cachectic malnourished appearing patient with left shoulder pain. SKIN: Warm and dry. HEAD: Atraumatic. Has prominent bilateral temporal wasting EYES: Pupils equal and round. No scleral icterus. No injection or drainage. ENT: No nasal bleeding or discharge. Mucous membranes pink and moist. NECK: Trachea midline. No JVD. CARDIOVASCULAR: Regular rate and rhythm. No murmur appreciated. RESPIRATORY: No accessory muscle use. Clear to auscultation. Breath sounds equal bilaterally. GASTROINTESTINAL: Abdomen soft, non-tender, nondistended. Hepatic and splenic margins not palpable. MUSCULOSKELETAL: Has tenderness to the left humeral head. Has pain with movement of the left shoulder. No clubbing. No cyanosis. No edema. Neurovascularly intact. NEUROLOGICAL: Awake and alert. No obvious cranial nerve deficits. Motor grossly within normal limits. Normal speech. PSYCHIATRIC: Appropriate mood and affect; insight and judgment normal. Data Data Last Documented VS Vital Signs Date Time Temp Pulse Resp B/P Pulse Ox O2 Delivery O2 Flow Rate FiO2 01/10/17 13:24 98 19 121/78 100 Room Air 01/10/17 12:07 98.3 Orders Iv Access Insert/Monitor (01/10/17 13:32) Complete Blood Count With Diff (01/10/17 13:32) Basic Metabolic Panel (Bmp) (01/10/17 13:32) Sodium Chlor 0.9% 1000 Ml Inj (Ns 1000 M (01/10/17 13:45) Shoulder, Complete (>2vws) (01/10/17 ) Splint Or Brace Apply/Monitor (01/10/17 16:09) Labs Laboratory Tests Test 01/10/17 13:40 White Blood Count 7.8 TH/MM3 Red Blood Count 3.25 MIL/MM3 Hemoglobin 10.0 GM/DL Hematocrit 30.4 % Mean Corpuscular Volume 93.5 FL Mean Corpuscular Hemoglobin 30.9 PG Mean Corpuscular Hemoglobin 33.0 % Concent Red Cell Distribution Width 18.7 % Platelet Count 238 TH/MM3 Mean Platelet Volume 8.7 FL Neutrophils (%) (Auto) 67.1 % Lymphocytes (%) (Auto) 16.5 % Monocytes (%) (Auto) 12.1 % Eosinophils (%) (Auto) 3.1 % Basophils (%) (Auto) 1.2 % Neutrophils # (Auto) 5.2 TH/MM3 Lymphocytes # (Auto) 1.3 TH/MM3 Monocytes # (Auto) 0.9 TH/MM3 Eosinophils # (Auto) 0.2 TH/MM3 Basophils # (Auto) 0.1 TH/MM3 CBC Comment DIFF FINAL Differential Comment Sodium Level 135 MEQ/L Potassium Level 4.7 MEQ/L Chloride Level 103 MEQ/L Carbon Dioxide Level 25.5 MEQ/L Anion Gap 7 MEQ/L Blood Urea Nitrogen 19 MG/DL Creatinine 1.17 MG/DL Estimat Glomerular Filtration 68 ML/MIN Rate Random Glucose 211 MG/DL Calcium Level 8.5 MG/DL MDM Medical Decision Making Medical Screen Exam Complete: Yes Emergency Medical Condition: Yes Medical Record Reviewed: Yes Differential Diagnosis Shoulder fracture, shoulder dislocation, contusion Narrative Course I have reviewed the patient's electronic medical record. Reviewed his admission history and physical from recent hospitalization as well as discharge summary from 8 days ago IV placed Given his multiorgan failure recently and cachexia I'm going to give him a liter of normal saline IV and run lab studies to make sure he is not worsening CBC is normal Metabolic profile is essentially normal I reviewed his left shoulder x-rays which show no fracture dislocation. There is concern for grade 1 AC separation I placed him in a sling and recommended ice and rest Recommend orthopedic follow-up Diagnosis Primary Impression: Acromioclavicular separation, type 1 Qualified Code: S43.102A - Acromioclavicular separation, type 1, left, initial encounter Additional Impression: Severe protein-calorie malnutrition Additional Instructions: The patient was advised to follow up with their physician and return if they worsen. Follow-up with orthopedist Med/Other Pt SpecificInfo: Other Disposition: 01 DISCHARGE HOME Condition: Stable Te Nash MD Jan 10, 2017 13:37
[2017-01-10] MEDS ORDERED: SODIUM CHLOR 0.9% 1000 ML INJ 1,000 ML IV ONE (13:45)
[2017-01-10 13:57] LABS: AUTOMATED NEUTROPHIL # 5.2 TH/MM3 (1.8-7.7); BASOPHIL # 0.1 TH/MM3 (0-0.2); BASOPHIL % 1.2 % (0.0-2.0); EOSINOPHIL # 0.2 TH/MM3 (0-0.4); EOSINOPHIL % 3.1 % (0.0-4.0); HEMATOCRIT 30.4 % (39.0-51.0); HEMO FLAGS DIFF FINAL; LYMPH % 16.5 % (9.0-44.0); LYMPHOCYTE # 1.3 TH/MM3 (1.0-4.8); MEAN CELL VOLUME 93.5 FL (80.0-100.0); MEAN CORPUSCULAR HEMOGLOBIN 30.9 PG (27.0-34.0); MONO % 12.1 % (0.0-8.0); NEUT % 67.1 % (16.0-70.0); PLATELET COUNT 238 TH/MM3 (150-450); RED BLOOD COUNT 3.25 MIL/MM3 (4.50-5.90); RED CELL DISTRIBUTION WIDTH 18.7 % (11.6-17.2); WHITE BLOOD COUNT 7.8 TH/MM3 (4.0-11.0)
[2017-01-10 14:19] LABS: BICARBONATE 25.5 MEQ/L (21.0-32.0); POTASSIUM 4.7 MEQ/L (3.5-5.1)
--- NOTE | 2017-01-10 14:24 | RADRPT ---
EXAM DATE/TIME: 01/10/2017 14:07 [facility] COMPARISON: CHEST SINGLE AP, December 14, 2016, 18:44. INDICATIONS : Fell Sunday01/05/17, pain entire shoulder with any motion. MEDICAL HISTORY : None. SURGICAL HISTORY : None. ENCOUNTER: Initial ACUITY: 4 - 6 days PAIN SCORE: 10/10 LOCATION: Left shoulder. FINDINGS: The examination demonstrates mild elevation of the clavicle relative to the acromion study would sugg est a grade 1 a.c. injury. No definite fracture is seen. The humeral head is well situated within the glenoid fossa. CONCLUSION: 1. Possible grade 1 injury to the left a.c. joint. Rocael Jaquez MD on January 10, 2017 at 14:21 Board Certified Radiologist. This report was verified electronically.
[2017-01-10 16:00] VITALS: BP 129/81; PULSE 86; RESP 18; O2SAT 97
== END 2017-01-10 16:39 | disposition home or self-care (01) ==
LOC: NEPA 12:05
DX: S43.012A Anterior subluxation of left humerus, initial encounter (principal); E43 Unspecified severe protein-calorie malnutrition; W01.0XXA Fall on same level from slipping, tripping and stumbling without subsequent striking against object, initial encounter
CPT/HCPCS: 73030; 80048; 85025; 96360; 96361; 99283; J7030

== ENCOUNTER 2017-06-30 14:31 | Inpatient (IN) | payer MEDICAID ==
[2017-06-30 14:35] VITALS: BP 76/52; PULSE 118; RESP 17; TEMP 97.4; O2SAT 97
[2017-06-30] MEDS ORDERED: SODIUM CHLOR 0.9% 1000 ML INJ 1,000 ML IV ONE ×2 (14:56→16:30)
[2017-06-30] MEDS ORDERED: SODIUM CHLORIDE 0.9% FLUSH 10 ML FLUSH IVF PRN (15:00)
[2017-06-30] MEDS ORDERED: ONDANSETRON HCL 4 MG/2 ML VIAL IV PUSH ONE (15:00)
--- NOTE | 2017-06-30 15:02 | PD ---
HPI Chief Complaint: Fall Time Seen by Provider: 15:02 Travel History International Travel<30 days: No Contact w/Intl Traveler<30days: No Traveled to known affect area: No History of Present Illness HPI Patient comes in complaining of generalized weakness and left shoulder pain. Patient states he's lost approximately 100 pounds over the past year as he cannot keep any food down. Patient states he's been monitoring his blood sugars up to 2 weeks ago when his Children left for the summer. Patient states they were running under 200. Patient has not been checking them since. Patient states he was taking metformin but not sure if he is had this recently. Patient states that his legs occasionally give out on him from time to time. Patient states that he went to use restroom last night and when he got up his leg gave out on him causing him to fall to his left. Patient does not believe he hit his head but is uncertain. Patient appears to have poor memory and is uncertain how long this has been going on. Patient last saw his primary care doctor 2-3 months ago and is uncertain what they told him about his weight loss. Denies any chest pain, shortness of breath, headache, nausea, vomiting, loss or change in bowel or bladder, or fevers. Patient complaining of pain in his left hip describes as a bruise-like sensation. Patient also pain is left shoulder describes as achy like pain without radiation. Pain improves with rest and is worse when he tries to move his left shoulder. PFSH Past Medical History Arthritis: Yes Asthma: No Autoimmune Disease: No Blood Disorders: No Anxiety: No Depression: Yes Heart Rhythm Problems: No Cancer: No Cardiovascular Problems: Yes High Cholesterol: Yes Chemotherapy: No Chest Pain: Yes Congestive Heart Failure: Yes COPD: No Cerebrovascular Accident: No Diabetes: Yes Patient Takes Glucophage: Yes (hasnt been taking) Diminished Hearing: No Endocrine: Yes Fibromyalgia: Yes Gastrointestinal Disorders: Yes GERD: Yes Gout: Yes Genitourinary: Yes Headaches: No Hepatitis: Yes (C) Hiatal Hernia: No Hypertension: Yes Immune Disorder: No Implanted Vascular Access Dvce: Yes Kidney Stones: Yes (removed) Musculoskeletal: Yes Neurologic: Yes Psychiatric: Yes Reproductive: Yes (vasectomy) Respiratory: Yes Immunizations Current: Yes Migraines: No Radiation Therapy: No Renal Failure: No Seizures: No Sickle Cell Disease: No Sleep Apnea: No Thyroid Disease: No Ulcer: No Past Surgical History Abdominal Surgery: Yes (RIGHT NEPHROLITHOTRIPSY, J TUBE removed) AICD: No Arteriovenous Shunt: No Body Medical Devices: LEFT HIP SURGERY Cardiac Surgery: No Ear Surgery: No Endocrine Surgery: No Eye Surgery: No Genitourinary Surgery: Yes (VASECTOMY) Gynecologic Surgery: No Insulin Pump: No Joint Replacement: Yes (LEFT HIP CURTIS/PIN) Neurologic Surgery: No Oral Surgery: No Pacemaker: No Thoracic Surgery: No Other Surgery: Yes (previously had peg tube) Social History Alcohol Use: No (occassionally) Tobacco Use: No Substance Use: No (hx of cocaine use) Allergies-Medications (Allergen,Severity, Reaction): Coded Allergies: *MDRO Multi-Drug Resistant Organism (Verified Adverse Reaction, Unknown, MRSA, 01/10/17) MRSA PCR screen POSITIVE - 11/28/16 Reported Meds & Prescriptions Reported Meds & Active Scripts Active Atenolol 25 Mg Tab 12.5 Mg PO DAILY Bactrim DS (Sulfamethoxazole-Trimethoprim) 800-160 Mg Tab 1 Tab PO BID [place] (Hydrocodone-Acetaminophen) 5-325 mg Tab 1 Tab PO Q6HR PRN Pantoprazole (Pantoprazole Sodium) 20 Mg Tab 20 Mg PO DAILY Canasa Supp (Mesalamine) 1,000 Mg Supp 1,000 Mg RECTAL HS Drisdol (Ergocalciferol) 50,000 Unit Cap 50,000 Units PO Q7D Bentyl (Dicyclomine HCl) 20 Mg Tab 20 Mg PO TID Cholestyramine 4 Gm/Pkt Powd 4 Gm PO DAILY@06 Magnesium Oxide 400 Mg Tab 400 Mg PO DAILY Xifaxan (Rifaximin) 550 Mg Tab 550 Mg PO BID K-Phos (Potassium Phosphate Monobasic) 500 Mg Tab 1,000 Mg PO Q12HR Creon (Amylase/Lipase/Protease) 24,000-76,000-120,000 Units Cap 1 Cap PO TID Nystop Topical (Nystatin Topical) 100,000 Unit/Gm Powd 1 Applic TOPICAL DAILY PRN Acidophilus/l-Sporogenes (Lactobacillus Acidophilus) 1 Tab Tab 1 Tab PO Q8HR Ferrous Sulfate 325 Mg Tab 325 Mg PO BID@12,17 Calcium Carbonate (Antacid) 500 Mg Chew 500 Mg CHEW Q12HR Reported Zofran (Ondansetron HCl) 4 Mg Tab 4 Mg PO Q6HR PRN Metformin (Metformin HCl) 500 Mg Tab 500 Mg PO BIDPC With meals Review of Systems ROS Limitations: Poor Historian Except as stated in HPI: all other systems reviewed are Neg Physical Exam Exam Limitations: Poor Historian Narrative GENERAL: Well-developed, under nourished, in no acute distress, and non-ill appearing. SKIN: Focused skin assessment warm and dry. HEAD: Atraumatic. Normocephalic. EYES: Pupils equal and round. EOMI. No scleral icterus. No injection or drainage. ENT: No nasal bleeding or discharge. Mucous membranes pink and moist. NECK: Trachea midline. Supple. No nuclear rigidity. No tenderness or crepitus over midline cervical spine. CARDIOVASCULAR: Regular rate and rhythm. No murmur appreciated. Radial and dorsal pulses 2+, equal bilaterally. Capillary refill less than 2 seconds. RESPIRATORY: No accessory muscle use. No respiratory distress. Clear to auscultation. Breath sounds equal bilaterally. GASTROINTESTINAL: Abdomen soft, non-tender, nondistended, and no guarding. Hepatic and splenic margins not palpable. Normal bowel sounds 4. No pulsatile mass. MUSCULOSKELETAL: No obvious deformities. No clubbing. No cyanosis. No edema. Decreased range of motion left shoulder secondary to pain. Shoulder: Sensation equal BL deltoid muscles. Pulses equal BL distal to injury. Capillary refill less than 2 seconds distal to injury and equal BL. FROM distal to injury and equal BL. Strength distal to injury equal BL. NV intact distal to injury equal BL. Flexion and extension of thumb equal BL. Equal strength and movement with abduction/adductions of BL fingers. Ceramic Designer strength equal BL. Hip: ROM equal BL with passive flexion, extension, Abduction, Adduction, and internal/external rotation. Pulses equal BL distal to injury. Capillary refill less than 2 seconds distal to injury and equal BL. FROM distal to injury and equal BL. Strength distal to injury equal BL. NV intact distal to injury and equal BL. Plantar flexion and dorsal flexion equal BL. Dorsal pulses equal BL. Sensation equal BL 1st web space. NEUROLOGICAL: Awake and alert. No obvious cranial nerve deficits. Motor grossly within normal limits. Normal speech. PSYCHIATRIC: Appropriate mood and affect; insight and judgment normal. Data Data Last Documented VS Vital Signs Date Time Temp Pulse Resp B/P Pulse Ox O2 Delivery O2 Flow Rate FiO2 06/30/17 15:03 99 06/30/17 14:35 97.4 118 17 76/52 Orders Electrocardiogram (06/30/17 14:56) Complete Blood Count With Diff (06/30/17 14:56) Comprehensive Metabolic Panel (06/30/17 14:56) Magnesium (Mg) (06/30/17 14:56) Ckmb (Isoenzyme) Profile (06/30/17 14:56) Troponin I (06/30/17 14:56) Act Partial Throm Time (Ptt) (06/30/17 14:56) Prothrombin Time / Inr (Pt) (06/30/17 14:56) Urinalysis - C+S If Indicated (06/30/17 14:56) Chest, Single Ap (06/30/17 14:56) Ct Brain W/O Iv Contrast(Rout) (06/30/17 14:56) Ct Cerv Spine W/O Contrast (06/30/17 14:56) Ecg Monitoring (06/30/17 14:56) Iv Access Insert/Monitor (06/30/17 14:56) Oximetry (06/30/17 14:56) Sodium Chloride 0.9% Flush (Ns Flush) (06/30/17 15:00) Sodium Chlor 0.9% 1000 Ml Inj (Ns 1000 M (06/30/17 14:56) Phosphorus (Po4) (06/30/17 14:56) Beta Hydroxybutyrate (Acetone) (06/30/17 14:56) Hip, Uni(Ap&Lat) W Ap Pelvis (06/30/17 ) Ice/Cold Pack (06/30/17 14:56) Ondansetron Inj (Zofran Inj) (06/30/17 15:00) Shoulder, Limited(2vws) (06/30/17 ) Ketorolac Inj (Toradol Inj) (06/30/17 16:15) Splint Or Brace Apply/Monitor (06/30/17 16:11) Ct Hip W/O Contrast (06/30/17 ) Aspirin Chew (Aspirin Chew) (06/30/17 16:30) Sodium Chlor 0.9% 1000 Ml Inj (Ns 1000 M (06/30/17 16:30) Morphine Inj (Morphine Inj) (06/30/17 16:30) Aspirin Chew (Aspirin Chew) (06/30/17 16:30) Sodium Chlor 0.9% 1000 Ml Inj (Ns 1000 M (06/30/17 16:30) Consult Cardiology (06/30/17 ) Admit Order (Ed Use Only) (06/30/17 17:12) Consult Orthopedic (06/30/17 ) Labs Laboratory Tests Test 06/30/17 15:00 White Blood Count 11.8 TH/MM3 Red Blood Count 3.50 MIL/MM3 Hemoglobin 11.1 GM/DL Hematocrit 33.4 % Mean Corpuscular Volume 95.3 FL Mean Corpuscular Hemoglobin 31.7 PG Mean Corpuscular Hemoglobin 33.3 % Concent Red Cell Distribution Width 13.4 % Platelet Count 259 TH/MM3 Mean Platelet Volume 9.1 FL Neutrophils (%) (Auto) 64.5 % Lymphocytes (%) (Auto) 22.8 % Monocytes (%) (Auto) 10.1 % Eosinophils (%) (Auto) 1.2 % Basophils (%) (Auto) 1.4 % Neutrophils # (Auto) 7.6 TH/MM3 Lymphocytes # (Auto) 2.7 TH/MM3 Monocytes # (Auto) 1.2 TH/MM3 Eosinophils # (Auto) 0.1 TH/MM3 Basophils # (Auto) 0.2 TH/MM3 CBC Comment DIFF FINAL Differential Comment Prothrombin Time 10.5 SEC Prothromb Time International 1.0 RATIO Ratio Activated Partial 26.4 SEC Thromboplast Time Sodium Level 130 MEQ/L Potassium Level 4.3 MEQ/L Chloride Level 93 MEQ/L Carbon Dioxide Level 26.1 MEQ/L Anion Gap 11 MEQ/L Blood Urea Nitrogen 24 MG/DL Creatinine 1.70 MG/DL Estimat Glomerular Filtration 44 ML/MIN Rate Random Glucose 415 MG/DL Calcium Level 9.6 MG/DL Phosphorus Level 2.8 MG/DL Magnesium Level 2.0 MG/DL Total Bilirubin 0.6 MG/DL Aspartate Amino Transf 9 U/L (AST/SGOT) Alanine Aminotransferase 12 U/L (ALT/SGPT) Alkaline Phosphatase 151 U/L Total Creatine Kinase 95 U/L Troponin I 0.32 NG/ML Total Protein 8.2 GM/DL Albumin 3.3 GM/DL B-Hydroxybutyrate 0.17 MMOL/L MDM Medical Decision Making Medical Screen Exam Complete: Yes Emergency Medical Condition: Yes Interpretation(s) EKG reviewed by Dr. Chapa shows sinus tachycardia with ventricular rate of 107. No STEMI. CT head read by the radiologist shows: Unremarkable study. CT cervical spine read by the radiologist shows: Unremarkable study. Chest x-ray read by the radiologist shows: No acute cardiopulmonary disease. Left hip x-ray read by the radiologist shows: Questionable fracture of left acetabulum and possibly left femoral neck. Left shoulder x-ray read by the radiologist shows: Proximal humeral fracture. CT left hip read by the radiologist shows: Chronic changes and no evidence for acute fracture. Differential Diagnosis Fracture, closed head injury, sprain, contusion, electrolyte abnormality, acute coronary syndrome, syncope, intracranial hemorrhage, cancer, other Narrative Course Patient seen and examined. IV was established. Patient is placed on a core sticker. Initial laboratory and radiological studies were ordered. Patient was given IV fluid, aspirin, morphine, and Zofran. 1630 Discussed all findings and plan of care with patient, who admits to using cocaine a week ago and is agreeable for admission. All questions were answered. Discussed patient with Dr. Chapa, who is in agreement with plan of care and disposition. Discussed patient with hospitalist is agreeable to admit the patient. Physician Communication Physician Communication [address] Arias, materials handler on-call, who will consult on the patient and recommends giving dose of Lovenox. [address] Sosa, orthopedic crewman armoured personnel carrier [id number], who will consult on patient. [address] Osei, who is agreeable to admit the patient. Diagnosis Primary Impression: NSTEMI (non-ST elevated myocardial infarction) Additional Impressions: Humeral fracture Qualified Code: S42.295A - Other closed nondisplaced fracture of proximal end of left humerus, initial encounter Uncontrolled diabetes mellitus Qualified Code: E11.65 - Uncontrolled type 2 diabetes mellitus without complication, without long-term current use of insulin Cocaine abuse Generalized weakness Admitting Information Admitting Physician Requests: Admit Condition: Stable Asaf Sahni Jun 30, 2017 15:02
[2017-06-30 15:03] VITALS: O2SAT 99
[2017-06-30 15:45] LABS: AUTOMATED NEUTROPHIL # 7.6 TH/MM3 (1.8-7.7); BASOPHIL # 0.2 TH/MM3 (0-0.2); BASOPHIL % 1.4 % (0.0-2.0); EOSINOPHIL # 0.1 TH/MM3 (0-0.4); EOSINOPHIL % 1.2 % (0.0-4.0); HEMATOCRIT 33.4 % (39.0-51.0); HEMO FLAGS DIFF FINAL; LYMPH % 22.8 % (9.0-44.0); LYMPHOCYTE # 2.7 TH/MM3 (1.0-4.8); MEAN CELL VOLUME 95.3 FL (80.0-100.0); MEAN CORPUSCULAR HEMOGLOBIN 31.7 PG (27.0-34.0); MEAN CORPUSCULAR HGB CONC 33.3 % (32.0-36.0); MONO % 10.1 % (0.0-8.0); NEUT % 64.5 % (16.0-70.0); PLATELET COUNT 259 TH/MM3 (150-450); RED CELL DISTRIBUTION WIDTH 13.4 % (11.6-17.2); WHITE BLOOD COUNT 11.8 TH/MM3 (4.0-11.0)
--- NOTE | 2017-06-30 15:50 | RADRPT ---
EXAM DATE/TIME: 06/30/2017 15:33 [facility] COMPARISON: CT BRAIN W/O CONTRAST, December 02, 2016, 14:39. INDICATIONS : Patient fell this morning RADIATION DOSE: 56.39 CTDIvol (mGy) MEDICAL HISTORY : Cardiovascular disease. Diabetes mellitus type 2. Hypertension. SURGICAL HISTORY : None. ENCOUNTER: Initial ACUITY: 1 day PAIN SCALE: 0/10 LOCATION: cranial TECHNIQUE: Multiple contiguous axial images were obtained of the head. Using automated exposure control and adj ustment of the mA and/or kV according to patient size, radiation dose was kept as low as reasonably a chievable to obtain optimal diagnostic quality images. DICOM format image data is available electro nically for review and comparison. FINDINGS: There is no evidence for intracranial hemorrhage, mass effect, mass lesions, edema, or extra-axial fl uid collections. The visualized bony structures appear intact. The ventricles are normal size for t he patient's age. There are no signs of acute infarction for technique. CONCLUSION: Unremarkable study. Magi Flores MD on June 30, 2017 at 15:47 Board Certified Radiologist. This report was verified electronically.
--- NOTE | 2017-06-30 15:52 | RADRPT ---
EXAM DATE/TIME: 06/30/2017 15:23 [facility] COMPARISON: No previous studies available for comparison. INDICATIONS : Left shoulder pain after fall. MEDICAL HISTORY : Hypertension. Cardiovascular disease. Diabetes mellitus type II. Sepsis, SURGICAL HISTORY : ORIF left hip. ENCOUNTER: Initial ACUITY: 2 days PAIN SCORE: 10/10 LOCATION: Left shoulder. FINDINGS: There is a complete fracture underneath the surgical neck of the proximal humerus without any signifi cant angulation or displacement. There is no dislocation. CONCLUSION: Proximal humeral fracture. Magi Flores MD on June 30, 2017 at 15:49 Board Certified Radiologist. This report was verified electronically.
--- NOTE | 2017-06-30 15:53 | RADRPT ---
EXAM DATE/TIME: 06/30/2017 15:26 [facility] COMPARISON: CHEST SINGLE AP, December 14, 2016, 18:44. INDICATIONS : Chest pain. Fall yesterday. MEDICAL HISTORY : Hypertension. Cardiovascular disease. Diabetes mellitus type II. Sepsis, SURGICAL HISTORY : ORIF left hip. ENCOUNTER: Initial ACUITY: 2 days PAIN SCORE: 10/10 LOCATION: Bilateral chest FINDINGS: The lungs are clear without infiltrate, nodule, or mass. There is no appreciable pleural effusion fo r technique. Heart and mediastinum are unremarkable. CONCLUSION: No acute cardiopulmonary disease. Magi Flores MD on June 30, 2017 at 15:50 Board Certified Radiologist. This report was verified electronically.
[2017-06-30 15:54] LABS: APTT (PATIENT) 26.4 SEC (24.3-30.1); PROTHROMBIN TIME - PATIENT 10.5 SEC (9.8-11.6)
--- NOTE | 2017-06-30 15:57 | RADRPT ---
EXAM DATE/TIME: 06/30/2017 15:28 [facility] COMPARISON: PELVIS AP ONLY, February 11, 2016, 17:27. HIP LEFT (AP&LAT 2/3VWS) WO AP PELVIS, February 12, 2016, 13:27. INDICATIONS : Left hip pain after fall. MEDICAL HISTORY : Hypertension. Cardiovascular disease. Diabetes mellitus type II. Sepsis, SURGICAL HISTORY : ORIF left hip. ENCOUNTER: Initial ACUITY: 1 day PAIN SCORE: 10/10 LOCATION: Left hip. FINDINGS: There is diffuse osteopenia and intramedullary perla traverses the proximal femur with a screw through the left femoral neck. There is a questionable fracture of the left acetabulum and possibly left femo ral neck difficult to evaluate due to extreme osteopenia. CONCLUSION: Questionable fracture of left acetabulum and possibly left femoral neck. Magi Flores MD on June 30, 2017 at 15:52 Board Certified Radiologist. This report was verified electronically.
--- NOTE | 2017-06-30 16:01 | RADRPT ---
EXAM DATE/TIME: 06/30/2017 15:33 [facility] COMPARISON: No previous studies available for comparison. INDICATIONS : Patient fell this morning RADIATION DOSE: 40.85 CTDIvol (mGy) MEDICAL HISTORY : Cardiovascular disease. Hypertension. Diabetes mellitus type 2. SURGICAL HISTORY : None. ENCOUNTER: Initial ACUITY: 1 day PAIN SCALE: 7/10 LOCATION: neck TECHNIQUE: Volumetric scanning of the cervical spine was performed. Multiplanar reconstructions in the sagittal, coronal and oblique axial planes were performed. Using automated exposure control and adjustment o f the mA and/or kV according to patient size, radiation dose was kept as low as reasonably achievable to obtain optimal diagnostic quality images. DICOM format image data is available electronically f or review and comparison. FINDINGS: No significant subluxation or soft tissue swelling is seen. No definite fracture is seen for techniqu e. C2-C3: No appreciable compromised to the thecal sac, exiting nerve roots are seen. The neural melissa ej are patent bilaterally. No appreciable thecal sac stenosis is seen. C3-C4: No appreciable compromised to the thecal sac, exiting nerve roots are seen. The neural melissa ej are patent bilaterally. No appreciable thecal sac stenosis is seen. C4-C5: No appreciable compromised to the thecal sac, exiting nerve roots are seen. The neural melissa ej are patent bilaterally. No appreciable thecal sac stenosis is seen. C5-C6: No appreciable compromised to the thecal sac, exiting nerve roots are seen. The neural melissa ej are patent bilaterally. No appreciable thecal sac stenosis is seen. C6-C7: No appreciable compromised to the thecal sac, exiting nerve roots are seen. The neural melissa ej are patent bilaterally. No appreciable thecal sac stenosis is seen. C7-T1: No appreciable compromised to the thecal sac, exiting nerve roots are seen. The neural melissa ej are patent bilaterally. No appreciable thecal sac stenosis is seen CONCLUSION: Unremarkable study. Magi Flores MD on June 30, 2017 at 15:56 Board Certified Radiologist. This report was verified electronically.
[2017-06-30 16:08] LABS: ALKALINE PHOSPHATASE 151 U/L (45-117); ALT (GPT) 12 U/L (12-78); ANION GAP 11 MEQ/L (5-15); AST (GOT) 9 U/L (15-37); BETA-HYDROXYBUTYRATE 0.17 MMOL/L (0.00-0.39); BICARBONATE 26.1 MEQ/L (21.0-32.0); CHLORIDE 93 MEQ/L (98-107); GLOMERULAR FILTRATION RATE 44 ML/MIN (>89); POTASSIUM 4.3 MEQ/L (3.5-5.1); SODIUM (NA) 130 MEQ/L (136-145); TOTAL BILIRUBIN ADULT 0.6 MG/DL (0.2-1.0)
[2017-06-30 16:10] LABS: CREATINE KINASE 95 U/L (39-308)
[2017-06-30 16:12] LABS: BLOOD UREA NITROGEN 24 MG/DL (7-18)
[2017-06-30] MEDS ORDERED: KETOROLAC TROMETHAMINE 30 MG/ML (IVP) VIAL IV PUSH ONE (16:15)
[2017-06-30] MEDS ORDERED: MORPHINE SULFATE 4 MG/ML INJ IV PUSH ONE ×2 (16:30→19:45)
[2017-06-30] MEDS ORDERED: ASPIRIN 81 MG CHEW TAB PO ONE ×2 (16:30)
--- NOTE | 2017-06-30 17:18 | RADRPT ---
EXAM DATE/TIME: 06/30/2017 16:52 [facility] COMPARISON: No previous studies available for comparison. INDICATIONS : Left hip fracture. RADIATION DOSE: 11.09 CTDIvol (mGy) MEDICAL HISTORY : Diabetes mellitus type 2. Cardiovascular disease Hepatitis C. SURGICAL HISTORY : Left total hip replacement. ENCOUNTER: Initial ACUITY: 1 day PAIN SCALE: 10/10 LOCATION: Left pelvis TECHNIQUE: Volumetric scanning of the hip was performed. Using automated exposure control and adjustment of the mA and/or kV according to patient size, radiation dose was kept as low as reasonably achievable to o btain optimal diagnostic quality images. DICOM format image data is available electronically for rev iew and comparison. FINDINGS: No definite fractures, or dislocations are identified. No definite lytic or sclerotic lesion is seen . Slight osteopenia is seen. Intramedullary perla is present traversing the femur with fixation screw traversing femoral neck. There is no evidence for femoral neck fracture. There is slight irregularity of the anterior acetabular column and inferior pubic ramus on the left side probably due to old frac tures and acute fracture is not identified. CONCLUSION: Chronic changes and no evidence for acute fracture. Magi Flores MD on June 30, 2017 at 17:14 Board Certified Radiologist. This report was verified electronically.
--- NOTE | 2017-06-30 17:59 | HHI.HP ---
[facility] Service [place] [facility] Primary Care Physician No Primary Care Physician Admission Diagnosis non-STEMI, generalized weakness, humeral fracture, uncontrolled DM Diagnoses: Chief Complaint: Left shoulder pain and left hip pain after fall Travel History International Travel<30 Days: No Contact w/Intl Traveler <30 Da: No Traveled to Known Affected Are: No History of Present Illness 42-year-old male past medical history of type 2 diabetes with peripheral neuropathy, coronary artery disease, history of CHF, fibromyalgia, GERD, history failure to thrive who presented with left shoulder and hip pain 1 week ago. Patient stated that he walks with a walker and his feet gave out on him in which she fell down on his left side. He stated that after that incident his sister helped him get home in bed where he laid there for 1 week. He said that he could not move because of severe the pain. Because of this he finally decided go to emergency department. In the ED patient had imaging which showed left shoulder fracture and probable left hip fracture. He was also found to have elevated troponins. I asked patient about chest pain since his troponins were elevated. He denied any chest pain, shortness of breathing, palpitation, diaphoresis or nausea vomiting. He did admit to having cocaine one week ago. He stated after that use he had no symptoms of chest pain or palpitations from the cocaine. Patient stated because of his pain he has not been eating much. Deny any lightheadedness or dizziness. But does states that he has a generalized weakness. Patient stated that he is on metformin and his blood sugar is usually around 150s. He also stated that he is on insulin sliding scale but does not use that much. All other review symptoms reviewed and all negative. Past Family Social History Past Medical History Type 2 diabetes Hypertension History failure to thrive Complete past medical history is unobtainable secondary to patient's clinical condition. Per chart review: Arthritis Coronary artery disease Hypercholesterolemia Congestive heart failure, unknown type Fibromyalgia GERD Gout Hepatitis Hypertension Kidney stones Anorexia History of pancreatitis Past Surgical History Cholecystectomy Left hip replacement secondary to a fall Right nephrolithotripsy with J-tube placement Left hip surgery Vasectomy Previous PEG tube placement Reported Medications Atenolol 25 Mg Tab 12.5 Mg PO DAILY Bactrim DS (Sulfamethoxazole-Trimethoprim) 800-160 Mg Tab 1 Tab PO BID [place] (Hydrocodone-Acetaminophen) 5-325 mg Tab 1 Tab PO Q6HR PRN Pantoprazole (Pantoprazole Sodium) 20 Mg Tab 20 Mg PO DAILY [place]asa Supp (Mesalamine) 1,000 Mg Supp 1,000 Mg RECTAL HS Drisdol (Ergocalciferol) 50,000 Unit Cap 50,000 Units PO Q7D Bentyl (Dicyclomine HCl) 20 Mg Tab 20 Mg PO TID Cholestyramine 4 Gm/Pkt Powd 4 Gm PO DAILY@06 Magnesium Oxide 400 Mg Tab 400 Mg PO DAILY Xifaxan (Rifaximin) 550 Mg Tab 550 Mg PO BID K-Phos (Potassium Phosphate Monobasic) 500 Mg Tab 1,000 Mg PO Q12HR Creon (Amylase/Lipase/Protease) 24,000-76,000-120,000 Units Cap 1 Cap PO TID Nystop Topical (Nystatin Topical) 100,000 Unit/Gm Powd 1 Applic TOPICAL DAILY PRN Acidophilus/l-Sporogenes (Lactobacillus Acidophilus) 1 Tab Tab 1 Tab PO Q8HR Ferrous Sulfate 325 Mg Tab 325 Mg PO BID@12,17 Calcium Carbonate (Antacid) 500 Mg Chew 500 Mg CHEW Q12HR Zofran (Ondansetron HCl) 4 Mg Tab 4 Mg PO Q6HR PRN Metformin (Metformin HCl) 500 Mg Tab 500 Mg PO BIDPC With meals Allergies: Coded Allergies: *MDRO Multi-Drug Resistant Organism (Verified Adverse Reaction, Unknown, MRSA, 01/10/17) MRSA PCR screen POSITIVE - 11/28/16 Active Ordered Medications Current Medications Sodium Chloride 2 ml 2 ml UNSCH PRN IVF FLUSH AFTER USING IV ACCESS; Start at 15:00 Sodium Chloride (NS 1000 ml Inj) 1,000 ml @ 1,000 mls/hr Q1H ONCE IV Last administered on 06/30/17 15:18; Start 06/30/17 at 14:56; Stop 06/30/17 at 15:55 ; Status DC Ondansetron HCl (Zofran Inj) 4 mg ONCE ONCE IV PUSH Last administered on 15:18; Start 06/30/17 at 15:00; Stop 06/30/17 at 15:03; Status DC Ketorolac Tromethamine (Toradol Inj) 15 mg ONCE ONCE IV PUSH ; Start 06/30/17 at 16:15; Stop 06/30/17 at 16:19; Status DC Aspirin 162 mg 162 mg ONCE ONCE PO ; Start 06/30/17 at 16:30; Stop 06/30/17 at 16:31; Status DC Sodium Chloride (NS 1000 ml Inj) 1,000 ml @ 999 mls/hr BOLUS ONCE IV ; Start 06/30/17 at 16:30; Stop 06/30/17 at 16:31; Status DC Morphine Sulfate (Morphine Inj) 2 mg ONCE ONCE IV PUSH ; Start 06/30/17 at 16: 30; Stop 06/30/17 at 16:31; Status DC Aspirin 162 mg 162 mg ONCE ONCE PO ; Start 06/30/17 at 16:30; Stop 06/30/17 at 16:31; Status DC Sodium Chloride (NS 1000 ml Inj) 1,000 ml @ 70 mls/hr [id number] IV ; Start at 16:30 Aspirin (Aspirin Chew) 81 mg DAILY CHEW ; Start 07/01/17 at 09:00 Dextrose (D50w (Vial) Inj) 50 ml UNSCH PRN IV HYPOGLYCEMIA-SEE COMMENTS; Start 06/30/17 at 18:00 Glucagon (Glucagon Inj) 1 mg UNSCH PRN OTHER HYPOGLYCEMIA-SEE COMMENTS; Start 06/30/17 at 18:00 Family History Parents and siblings have history of coronary artery disease and diabetes. Social History Patient was at home by himself. Uses cocaine. Denies any other illicit drug use. Occasionally drinks alcohol. Physical Exam Vital Signs Vital Signs Date Time Temp Pulse Resp B/P Pulse Ox O2 Delivery O2 Flow Rate FiO2 06/30/17 15:03 99 06/30/17 14:35 97.4 118 17 76/52 97 Physical Exam GENERAL: This is a very thin male in no acute distress SKIN: No rashes, ecchymoses or lesions. Seems to be dry. Dry clean ulcer on the lateral part of the foot. HEAD: Atraumatic. Normocephalic. No temporal or scalp tenderness. EYES: Pupils equal round and reactive. Extraocular motions intact. No scleral icterus. No injection or drainage. ENT: Nose without bleeding, purulent drainage or septal hematoma. Throat without erythema, tonsillar hypertrophy or exudate. Uvula midline. Airway patent. Mucous membranes are dry. NECK: Trachea midline. No JVD or lymphadenopathy. Supple, nontender, no meningeal signs. CARDIOVASCULAR: Tachycardia rate of 105 and rhythm without murmurs, gallops, or rubs. RESPIRATORY: Clear to auscultation. Breath sounds equal bilaterally. No wheezes , rales, or rhonchi. GASTROINTESTINAL: Abdomen soft, non-tender, nondistended. No hepato-splenomegaly , or palpable masses. No guarding. MUSCULOSKELETAL: Left shoulder and a sling. Decreased range of motion secondary to pain. Sensation is intact. Left hip decreased range of motion secondary to pain. Sensation is intact. No calf tenderness. Negative Homans sign bilaterally. NEUROLOGICAL: Awake and alert. Cranial nerves II through XII intact. Motor and sensory grossly within normal limits. Five out of 5 muscle strength in all muscle groups. Normal speech. Laboratory Laboratory Tests Test 06/30/17 15:00 White Blood Count 11.8 Red Blood Count 3.50 Hemoglobin 11.1 Hematocrit 33.4 Mean Corpuscular Volume 95.3 Mean Corpuscular Hemoglobin 31.7 Mean Corpuscular Hemoglobin 33.3 Concent Red Cell Distribution Width 13.4 Platelet Count 259 Mean Platelet Volume 9.1 Neutrophils (%) (Auto) 64.5 Lymphocytes (%) (Auto) 22.8 Monocytes (%) (Auto) 10.1 Eosinophils (%) (Auto) 1.2 Basophils (%) (Auto) 1.4 Neutrophils # (Auto) 7.6 Lymphocytes # (Auto) 2.7 Monocytes # (Auto) 1.2 Eosinophils # (Auto) 0.1 Basophils # (Auto) 0.2 CBC Comment DIFF FINAL Differential Comment Prothrombin Time 10.5 Prothromb Time International 1.0 Ratio Activated Partial 26.4 Thromboplast Time Sodium Level 130 Potassium Level 4.3 Chloride Level 93 Carbon Dioxide Level 26.1 Anion Gap 11 Blood Urea Nitrogen 24 Creatinine 1.70 Estimat Glomerular Filtration 44 Rate Random Glucose 415 Calcium Level 9.6 Phosphorus Level 2.8 Magnesium Level 2.0 Total Bilirubin 0.6 Aspartate Amino Transf 9 (AST/SGOT) Alanine Aminotransferase 12 (ALT/SGPT) Alkaline Phosphatase 151 Total Creatine Kinase 95 Troponin I 0.32 Total Protein 8.2 Albumin 3.3 B-Hydroxybutyrate 0.17 Result Diagram: 06/30/17 1500 06/30/17 1500 Imaging Last Impressions Head CT 06/30/17 1456 Signed Impressions: Service Date/Time: Friday, June 30, 2017 15:33 - CONCLUSION: Unremarkable study. Magi Flores MD Chest X-Ray 06/30/17 1456 Signed Impressions: Service Date/Time: Friday, June 30, 2017 15:26 - CONCLUSION: No acute cardiopulmonary disease. Magi Flores MD Cervical Spine CT 06/30/17 1456 Signed Impressions: Service Date/Time: Friday, June 30, 2017 15:33 - CONCLUSION: Unremarkable study. Magi Flores MD Shoulder X-Ray 06/30/17 0000 Signed Impressions: Service Date/Time: Friday, June 30, 2017 15:23 - CONCLUSION: Proximal humeral fracture. Magi Flores MD Lower Extremity CT 06/30/17 0000 Signed Impressions: Service Date/Time: Friday, June 30, 2017 16:52 - CONCLUSION: Chronic changes and no evidence for acute fracture. Magi Flores MD Hip and Pelvis X-Ray 06/30/17 0000 Signed Impressions: Service Date/Time: Friday, June 30, 2017 15:28 - CONCLUSION: Questionable fracture of left acetabulum and possibly left femoral neck. Magi Flores MD Assessment and Plan Assessment and Plan 42-year-old male past medical history of type 2 diabetes with peripheral neuropathy, diabetic foot ulcer, coronary disease, history of hypertension, cocaine user who presented with left shoulder and hip pain secondary to mechanical fall Left shoulder and hip pain -X-ray showed proximal humeral fracture. -Questionable fracture of left acetabulum and possibly left femoral neck. -Orthopedic surgeon already consulted. Pending consult. Elevated troponins 0.31 -Most likely secondary to cocaine use. Patient is asymptomatic. Concession Manager consulted recommend therapeutic Lovenox. Patient weight has not been recorded. Order placed for nurse to obtain patient's weight so that therapeutic Lovenox can be started since it is weight-based dosing. -Continue to trend troponins. -Make sure patient is chest pain-free. But need to be cautious with medication since patient is hypotensive. -We'll get a 2-D echo. Patient already received aspirin. Will continue aspirin. Will get a lipid profile. Monitor over telemetry. Acute renal failure -Most likely prerenal since patient is hypotensive and dehydrated. -Baseline Cr in January 2017 was 1.17. Creatinine now is 1.7. -Strict ins and outs. Avoid nephrotoxins. -Will give IV fluids. Her creatinine. Uncontrolled diabetes complicated by peripheral neuropathy/diabetic foot ulcer -Due to renal sufficiency will need to hold metformin. Start patient on insulin sliding scope. -Adjust accordingly. Also implement hypoglycemic protocol. -We'll get a hemoglobin A1c. Hypotension -Labs reviewed. Chest x-ray normal. No signs of sepsis or source of infection. Most likely secondary to dehydration. -Systolic blood pressure in the 70s. New blood pressure reading has not been done since patient received a bolus of normal saline in the ER. Order placed for nurse to repeat blood pressure and record in the EMR system. -Continue to monitor closely. -Will start patient on IV fluids. -Will hold antihypertensive medication. History of hypertension -See above. History of pancreatitis/GERD/coronary artery disease/fibromyalgia/gout/hepatitis -Will resume home medication except for antihypertensive medication. Cocaine abuse -Education given. Will get a urine drug screen. DVT prophylaxis -Once weight is obtain patient will be on therapeutic Lovenox. Code Status full Discussed Condition With patient Physician Certification 2 Midnight Certification Type: Admission for Inpatient Services Order for Inpatient Services The services are ordered in accordance with Medicare regulations or non- Medicare payer requirements, as applicable. In the case of services not specified as inpatient-only, they are appropriately provided as inpatient services in accordance with the 2-midnight benchmark. Estimated LOS (days): 2 2 days is the estimated time the patient will need to remain in the hospital, assuming treatment plan goals are met and no additional complications. Post-Hospital Plan: Home Lelo Valle MD Jun 30, 2017 17:59
[2017-06-30] MEDS ORDERED: GLUCAGON 1 MG/ML VIAL OTHER PRN (18:00)
[2017-06-30] MEDS ORDERED: DEXTROSE 50% IN WATER 50 ML VIAL(D50) IV PRN (18:00)
--- NOTE | 2017-06-30 19:38 | PD ---
Physical Exam Narrative I, Dr. Chapa, have reviewed the advance practice practitioner's documentation and am in agreement, met with the patient face to face, made the diagnosis, and the medical decision making was done by me. *My assessment and Findings: Fracture vs. contusion vs. musculoskeletal pain 42yo M with DM left shoulder and hip pain s/p fall last night. CT cspine unremarkable. CXR negative. CT brain negative. Xray left hip showed questionable fracture of left acetabulum and possibly left femoral neck. CT lower ext showed chronic changes and no acute fracture. xray left shoulder showed proximal humeral fracture. Labs reviewed, WBC 11.8. Glucose elevated at 415. No increase anion gap. Troponin elevated at 0.32. Although pt had no chest pain or sob, he did have left arm pain that may be atypical ACS. Dr. Marsh was called and recommended lovenox. Dr. Obregon was called and he will be consulted. Pt admitted to medicine. Data Data Last Documented VS Vital Signs Date Time Temp Pulse Resp B/P Pulse Ox O2 Delivery O2 Flow Rate FiO2 06/30/17 15:03 99 06/30/17 14:35 97.4 118 17 76/52 Orders Electrocardiogram (06/30/17 14:56) Complete Blood Count With Diff (06/30/17 14:56) Comprehensive Metabolic Panel (06/30/17 14:56) Magnesium (Mg) (06/30/17 14:56) Ckmb (Isoenzyme) Profile (06/30/17 14:56) Troponin I (06/30/17 14:56) Act Partial Throm Time (Ptt) (06/30/17 14:56) Prothrombin Time / Inr (Pt) (06/30/17 14:56) Urinalysis - C+S If Indicated (06/30/17 14:56) Chest, Single Ap (06/30/17 14:56) Ct Brain W/O Iv Contrast(Rout) (06/30/17 14:56) Ct Cerv Spine W/O Contrast (06/30/17 14:56) Ecg Monitoring (06/30/17 14:56) Iv Access Insert/Monitor (06/30/17 14:56) Oximetry (06/30/17 14:56) Sodium Chloride 0.9% Flush (Ns Flush) (06/30/17 15:00) Sodium Chlor 0.9% 1000 Ml Inj (Ns 1000 M (06/30/17 14:56) Phosphorus (Po4) (06/30/17 14:56) Beta Hydroxybutyrate (Acetone) (06/30/17 14:56) Hip, Uni(Ap&Lat) W Ap Pelvis (06/30/17 ) Ice/Cold Pack (06/30/17 14:56) Ondansetron Inj (Zofran Inj) (06/30/17 15:00) Shoulder, Limited(2vws) (06/30/17 ) Ketorolac Inj (Toradol Inj) (06/30/17 16:15) Splint Or Brace Apply/Monitor (06/30/17 16:11) Ct Hip W/O Contrast (06/30/17 ) Aspirin Chew (Aspirin Chew) (06/30/17 16:30) Sodium Chlor 0.9% 1000 Ml Inj (Ns 1000 M (06/30/17 16:30) Morphine Inj (Morphine Inj) (06/30/17 16:30) Aspirin Chew (Aspirin Chew) (06/30/17 16:30) Sodium Chlor 0.9% 1000 Ml Inj (Ns 1000 M (06/30/17 16:30) Consult Cardiology (06/30/17 ) Admit Order (Ed Use Only) (06/30/17 17:12) Consult Orthopedic (06/30/17 ) Labs Laboratory Tests Test 06/30/17 15:00 White Blood Count 11.8 TH/MM3 Red Blood Count 3.50 MIL/MM3 Hemoglobin 11.1 GM/DL Hematocrit 33.4 % Mean Corpuscular Volume 95.3 FL Mean Corpuscular Hemoglobin 31.7 PG Mean Corpuscular Hemoglobin 33.3 % Concent Red Cell Distribution Width 13.4 % Platelet Count 259 TH/MM3 Mean Platelet Volume 9.1 FL Neutrophils (%) (Auto) 64.5 % Lymphocytes (%) (Auto) 22.8 % Monocytes (%) (Auto) 10.1 % Eosinophils (%) (Auto) 1.2 % Basophils (%) (Auto) 1.4 % Neutrophils # (Auto) 7.6 TH/MM3 Lymphocytes # (Auto) 2.7 TH/MM3 Monocytes # (Auto) 1.2 TH/MM3 Eosinophils # (Auto) 0.1 TH/MM3 Basophils # (Auto) 0.2 TH/MM3 CBC Comment DIFF FINAL Differential Comment Prothrombin Time 10.5 SEC Prothromb Time International 1.0 RATIO Ratio Activated Partial 26.4 SEC Thromboplast Time Sodium Level 130 MEQ/L Potassium Level 4.3 MEQ/L Chloride Level 93 MEQ/L Carbon Dioxide Level 26.1 MEQ/L Anion Gap 11 MEQ/L Blood Urea Nitrogen 24 MG/DL Creatinine 1.70 MG/DL Estimat Glomerular Filtration 44 ML/MIN Rate Random Glucose 415 MG/DL Calcium Level 9.6 MG/DL Phosphorus Level 2.8 MG/DL Magnesium Level 2.0 MG/DL Total Bilirubin 0.6 MG/DL Aspartate Amino Transf 9 U/L (AST/SGOT) Alanine Aminotransferase 12 U/L (ALT/SGPT) Alkaline Phosphatase 151 U/L Total Creatine Kinase 95 U/L Troponin I 0.32 NG/ML Total Protein 8.2 GM/DL Albumin 3.3 GM/DL B-Hydroxybutyrate 0.17 MMOL/L MDM Supervised Visit with MODESTA: Yes Critical Care Narrative Aggregate critical care time was 35 minutes. Time to perform other separately billable procedures was not included in the critical care time. My time did not include minutes spent treating any other patients simultaneously or on activities that did not directly contribute to the patient's treatment. The services I provided to this patient were to treat and/or prevent clinically significant deterioration that could result in: cardiovascular collapse or . I provided critical care services requiring my management, as noted below: Chart data review, documentation time, medication orders and management, vital sign assessments/reviewing monitor data, ordering and reviewing lab tests, ordering and interpreting/reviewing x-rays and diagnostic studies, care of the patient and discussion of the patient with the admitting physicians. Diagnosis Primary Impression: NSTEMI (non-ST elevated myocardial infarction) Additional Impressions: Cocaine abuse Generalized weakness Humeral fracture Qualified Code: S42.295A - Other closed nondisplaced fracture of proximal end of left humerus, initial encounter Uncontrolled diabetes mellitus Qualified Code: E11.65 - Uncontrolled type 2 diabetes mellitus without complication, without long-term current use of insulin Patient Instructions: General Instructions, Cocaine (On the skin), Weakness (ED ) Departure Forms: Tests/Procedures Condition: Stable Anne Chapajoan DODD Jun 30, 2017 19:38
[2017-06-30] MEDS: SODIUM CHLOR 0.9% 1000 ML INJ 1,000 ML IV SCH (19:46)
[2017-06-30 19:47] VITALS: BP 173/102; PULSE 102; RESP 18; O2SAT 96
[2017-06-30] MEDS ORDERED: ERGO1CAP30 PO (21:08)
[2017-06-30 21:16] LABS: BLOOD, URINE TRACE (NEG); COMMENT (UR) CULT NOT INDICATED; CULTURE IF INDICATED CULT NOT INDICATED; GLUCOSE,URINE 1000 mg/dL (NEG); KETONE, URINE TRACE mg/dL (NEG); NITRITE,URINE NEG (NEG); PH, URINE 5.5 (5.0-8.5); SQUAMOUS EPITHELIAL CELL URINE <1 /hpf (0-5); URINE COLOR YELLOW (YELLW/STRAW)
[2017-06-30 21:34] VITALS: BP 172/97; PULSE 104; RESP 17; O2SAT 96
[2017-06-30] MEDS: ENOXAPARIN SODIUM 60 MG/0.6 ML SYRINGE SQ SCH (21:39)
[2017-07-01] VITALS (16 sets, daily range): BP systolic 132–168; BP diastolic 74–105; PULSE 90–103; RESP 18–20; TEMP 97.3–98.4; O2SAT 96–98
[2017-07-01] MEDS ORDERED: ACETAMINOPHEN/HYDROcodone 325 MG/5 MG TAB PO PRN ×2 (02:00→14:00)
[2017-07-01] MEDS: ACETAMINOPHEN/HYDROcodone 325 MG/10 MG TAB PO PRN ×2 (02:05→05:55)
[2017-07-01 02:58] LABS: HEMATOCRIT 27.3 % (39.0-51.0); MEAN CELL VOLUME 93.1 FL (80.0-100.0); MEAN CORPUSCULAR HEMOGLOBIN 32.2 PG (27.0-34.0); MEAN CORPUSCULAR HGB CONC 34.6 % (32.0-36.0); PLATELET COUNT 202 TH/MM3 (150-450); RED BLOOD COUNT 2.93 MIL/MM3 (4.50-5.90); REVIEW FLAG FINAL; WHITE BLOOD COUNT 8.4 TH/MM3 (4.0-11.0)
[2017-07-01 03:22] LABS: BICARBONATE 27.5 MEQ/L (21.0-32.0); HDL CHOLESTEROL 25.3 MG/DL (40.0-60.0); POTASSIUM 4.5 MEQ/L (3.5-5.1)
[2017-07-01] MEDS: SODIUM CHLOR 0.9% 1000 ML INJ 1,000 ML IV SCH ×2 (07:20→21:38)
[2017-07-01] MEDS: ASPIRIN 81 MG CHEW TAB CHEW SCH (09:00)
[2017-07-01] MEDS: ENOXAPARIN SODIUM 60 MG/0.6 ML SYRINGE SQ SCH (09:00)
[2017-07-01 10:57] LABS: HEMOGLOBIN A1b 2.9 %; HEMOGLOBIN Ao 75.8 %; HEMOGLOBIN LA1C 3.8 %; HEMOGLOBIN P3 5.7 %
[2017-07-01] MEDS ORDERED: MORPHINE SULFATE 4 MG/ML INJ ONE (11:39)
--- NOTE | 2017-07-01 11:52 | MB ---
cc: PANKAJ MARSH MD DATE OF CONSULTATION: 07/01/2017 REASON FOR CONSULTATION: Elevated troponin. HISTORY OF PRESENT ILLNESS The patient is a pleasant, troubled, 42 year-old gentleman who was using cocaine and fell, and for some reason troponins were taken and were mildly positive. He denies any chest pain, shortness of breath, lightheadedness or dizziness. He says he has neuropathy in his legs and became weak. PAST MEDICAL HISTORY 1. Substance abuse. 2. Diabetes. 3. Hypertension. 4. "Failure to thrive." CURRENT MEDICATIONS 1. Aspirin 81 milligrams daily. 2. Lovenox. ALLERGIES: NO KNOWN DRUG ALLERGIES. PHYSICAL EXAMINATION Afebrile, pulse 92, respiratory 18, BP 159/96, sating 96 on room air. General: Pleasant thin gentleman in no distress. Neck: No JVD. Lungs: Clear auscultation bilaterally. Cardiovascular: Regular rate and rhythm. No murmurs appreciated. Abdomen: Benign. Extremities: No edema. LABORATORY DATA White count 8.4, hematocrit 27.3, platelets 202. Sodium 134, potassium 4.5, chloride 100, bicarb 27.5, BUN 23, creatinine 1.16, glucose 233, cardiac enzymes are mildly positive with troponins of 0.32, 0.09, 0.08. Toxicology screen is positive for cocaine use. EKG shows sinus rhythm with no acute ST or T-wave changes. IMPRESSION Elevated troponin. The patient's elevated troponin is likely reflective of his overall poor medical condition, not due to acute coronary syndrome without any chest pain or significant EKG changes. We will have him undergo a nuclear stress test. If his stress test has no ischemia, will sign off, but be available if any issues arise. Thank you again for the opportunity to participate in this patient's care. Pankaj Marsh MD [facility]/VI /8:37 AM /8:43 AM
[2017-07-01] MEDS ORDERED: REGADENOSON INJ 0.4 MG/5 ML SYR ONE (13:51)
[2017-07-01] MEDS ORDERED: MORPHINE SULFATE 4 MG/ML INJ IV PUSH ONE (14:00)
--- NOTE | 2017-07-01 15:23 | RADRPT ---
EXAM DATE/TIME: 07/01/2017 13:20 [place] COMPARISON: No previous studies available for comparison. INDICATIONS : Left shoulder pain with generalized weakness. Angina. DOSE: 26.1 mCi Tc99m Myoview at stress. 8.7 mCi Tc99m Myoview at rest. 0.4 mg Lexiscan STRESS SYMPTOMS: Abdominal and neck pressure. EJECTION FRACTION: > 70% MEDICAL HISTORY : Congestive heart failure. Hypercholesterolemia. Diabetes mellitus type 2. Hypertension. SURGICAL HISTORY : Left hip replacement. ENCOUNTER: Initial ACUITY: 1 day PAIN SCALE: 4/10 LOCATION: Left Shoulder. TECHNIQUE: The patient underwent pharmacologic stress with infusion of prescribed dose. Continuous ECG tracing was monitored during stress. Gated SPECT imaging was performed after stress and conventional SPECT i maging was performed at rest. The examination was performed on a SPECT/CT scanner, both attenuation and non-corrected datasets were reviewed. FINDINGS: DISTRIBUTION: The maximum perfused segment at stress is in the anterior wall. PERFUSION STUDY: The pattern of perfusion at stress demonstrates a fixed defect in the low lateral wall and part of th e inferior wall without any appreciable ischemia. GATED STUDY: There is intact wall motion and thickening without hypokinetic or dyskinetic segments. CONCLUSION: No appreciable ischemia. RISK CATEGORY: Low (<1% Annual Mortality Rate) Magi Flores MD on July 01, 2017 at 15:15 Board Certified Radiologist. This report was verified electronically.
--- NOTE | 2017-07-01 16:07 | EKG ---
Date Performed: 06/30/2017 Time Performed: 14:51:49 PTAGE: 42 years EKG: SINUS TACHYCARDIA LEFT AXIS DEVIATION Compared to previous tracing, axis somewhat more left [place], heart rate faster, otherwise the ST-T changes have improved. ABNORMAL ECG PREVIOUS TRACING : 11/28/2016 03.05 DOCTOR: Darrius York Interpretating Date/Time 07/01/2017 16:04:58
--- NOTE | 2017-07-01 16:20 | HHI.PR ---
Subjective Remarks Follow-up for left arm fracture, possible hip fracture, elevated troponin, positive cocaine, renal sufficiency Patient upset that he was nothing by mouth for nuclear stress test. He has no other complaints. Deny chest pain, tightness of breathing, or palpitation. He has good urine output. Objective Vitals Vital Signs Date Time Temp Pulse Resp B/P (MAP) Pulse Ox O2 Delivery O2 Flow Rate FiO2 07/01/17 15:00 101 07/01/17 12:55 97.4 94 18 161/87 (111) 96 07/01/17 08:01 18 07/01/17 06:00 92 07/01/17 05:00 93 07/01/17 04:00 98.4 98 20 159/96 (117) 96 07/01/17 04:00 98 07/01/17 03:00 93 07/01/17 02:00 95 07/01/17 01:00 100 07/01/17 00:00 103 07/01/17 00:00 98.0 103 20 168/105 (126) 98 06/30/17 21:34 104 17 172/97 (122) 96 Room Air 06/30/17 19:47 102 18 173/102 (125) 96 Room Air I/O 06/30/17 06/30/17 06/30/17 07/01/17 07/01/17 07/01/17 06:59 14:59 22:59 06:59 14:59 22:59 Intake Total 940 ml Output Total 600 ml Balance 340 ml Intake Oral 240 ml IV Total 700 ml Output Urine Total 600 ml # Voids 2 # Bowel Movements 1 Result Diagram: 07/01/1724307/01/17243 Imaging Last Impressions Head CT 06/30/171455 Signed Impressions: Service Date/Time: Friday, June 30, 2017 15:33 - CONCLUSION: Unremarkable study. Magi Flores MD Chest X-Ray 06/30/171455 Signed Impressions: Service Date/Time: Friday, June 30, 2017 15:26 - CONCLUSION: No acute cardiopulmonary disease. Magi Flores MD Cervical Spine CT 06/30/171455 Signed Impressions: Service Date/Time: Friday, June 30, 2017 15:33 - CONCLUSION: Unremarkable study. Magi Flores MD Shoulder X-Ray 06/30/17 0000 Signed Impressions: Service Date/Time: Friday, June 30, 2017 15:23 - CONCLUSION: Proximal humeral fracture. Magi Flores MD Lower Extremity CT 06/30/17 0000 Signed Impressions: Service Date/Time: Friday, June 30, 2017 16:52 - CONCLUSION: Chronic changes and no evidence for acute fracture. Magi Flores MD Hip and Pelvis X-Ray 06/30/17 0000 Signed Impressions: Service Date/Time: Friday, June 30, 2017 15:28 - CONCLUSION: Questionable fracture of left acetabulum and possibly left femoral neck. Magi Flores MD Objective Remarks GENERAL: This is a very thin male in no acute distress SKIN: No rashes, ecchymoses or lesions. Seems to be dry. Dry clean ulcer on the lateral part of the foot. CARDIOVASCULAR regular rate and rhythm without murmurs, gallops, or rubs. RESPIRATORY: Clear to auscultation. Breath sounds equal bilaterally. No wheezes , rales, or rhonchi. GASTROINTESTINAL: Abdomen soft, non-tender, nondistended. No hepato-splenomegaly , or palpable masses. No guarding. MUSCULOSKELETAL: Left shoulder and a sling. Decreased range of motion secondary to pain. Sensation is intact. Left hip decreased range of motion secondary to pain. Sensation is intact. No calf tenderness. Negative Homans sign bilaterally. NEUROLOGICAL: Awake and alert. Cranial nerves II through XII intact. Motor and sensory grossly within normal limits. Five out of 5 muscle strength in all muscle groups. Normal speech. Medications and IVs Current Medications Sodium Chloride (NS Flush) 2 ml UNSCH PRN IVF FLUSH AFTER USING IV ACCESS; Start 06/30/17 at 15:00 Sodium Chloride 1,000 ml @ 1,000 mls/hr Q1H ONCE IV Last administered on 15:18; Start 06/30/17 at 14:56; Stop 06/30/17 at 15:55; Status DC Ondansetron HCl (Zofran Inj) 4 mg ONCE ONCE IV PUSH Last administered on 15:18; Start 06/30/17 at 15:00; Stop 06/30/17 at 15:03; Status DC Ketorolac Tromethamine (Toradol Inj) 15 mg ONCE ONCE IV PUSH ; Start 06/30/17 at 16:15; Stop 06/30/17 at 16:19; Status DC Aspirin (Aspirin Chew) 162 mg ONCE ONCE PO Last administered on 06/30/17 19: 46; Start 06/30/17 at 16:30; Stop 06/30/17 at 16:31; Status DC Sodium Chloride 1,000 ml @ 999 mls/hr BOLUS ONCE IV ; Start 06/30/17 at 16:30 ; Stop 06/30/17 at 16:31; Status DC Morphine Sulfate (Morphine Inj) 2 mg ONCE ONCE IV PUSH Last administered on 19:46; Start 06/30/17 at 16:30; Stop 06/30/17 at 16:31; Status DC Aspirin (Aspirin Chew) 162 mg ONCE ONCE PO Last administered on 06/30/17 19: 46; Start 06/30/17 at 16:30; Stop 06/30/17 at 16:31; Status DC Sodium Chloride 1,000 ml @ 70 mls/hr [id number] IV Last administered on 07:20; Start 06/30/17 at 16:30 Aspirin (Aspirin Chew) 81 mg DAILY CHEW Last administered on 07/01/17 09:00; Start 07/01/17 at 09:00 Dextrose (D50w (Vial) Inj) 50 ml UNSCH PRN IV HYPOGLYCEMIA-SEE COMMENTS; Start 06/30/17 at 18:00 Glucagon (Glucagon Inj) 1 mg UNSCH PRN OTHER HYPOGLYCEMIA-SEE COMMENTS; Start 06/30/17 at 18:00 Morphine Sulfate (Morphine Inj) 2 mg ONCE ONCE IV PUSH Last administered on 19:47; Start 06/30/17 at 19:45; Stop 06/30/17 at 19:46; Status DC Enoxaparin Sodium (Lovenox Inj) 60 mg Q12HR SQ Last administered on 07/01/17 09:00; Start 06/30/17 at 21:00 Acetaminophen/ Hydrocodone Bitart ([place] 5-325 Mg) 1 tab Q4H PRN PO pain 1-5; Start 07/01/17 at 02:00 Acetaminophen/ Hydrocodone Bitart ([place] 10-325 Mg) 1 tab Q4H PRN PO pain 6-10 Last administered on 07/01/17 05:55; Start 07/01/17 at 02:00 Morphine Sulfate (Morphine Inj) 4 mg STK-MED ONCE .ROUTE ; Start 07/01/17 at 11: 39; Stop 07/01/17 at 12:18; Status DC Acetaminophen/ Hydrocodone Bitart ([place] 5-325 Mg) 1 tab Q4H PRN PO pain 1-7; Start 07/01/17 at 14:00 Acetaminophen/ Hydrocodone Bitart ([place] 5-325 Mg) 2 tab Q4H PRN PO pain 8-10 ; Start 07/01/17 at 14:00 Regadenoson (Lexiscan Inj) 0.4 mg STK-MED ONCE .ROUTE Last administered on 07/01 13:51; Start 07/01/17 at 13:51; Stop 07/01/17 at 13:52; Status DC Morphine Sulfate (Morphine Inj) 2 mg NOW ONCE IV PUSH Last administered on 12:00; Start 07/01/17 at 14:00; Stop 07/01/17 at 14:01; Status DC A/P Assessment and Plan 42-year-old male past medical history of type 2 diabetes with peripheral neuropathy, diabetic foot ulcer, coronary disease, history of hypertension, cocaine user who presented with left shoulder and hip pain secondary to mechanical fall Left shoulder and hip pain -X-ray showed proximal humeral fracture. -Questionable fracture of left acetabulum and possibly left femoral neck. -Pending orthopedic consult. -Patient also needs PT consult. He may need to go to SNF. Elevated troponins 0.31 trending down. -Most likely secondary to cocaine use. Patient is asymptomatic. -[employer] consulted and stated most likely due to poor care. He stated that if nuclear stress test is negative he is clear from a cardiac standpoint. -Nuclear stress test negative for any ischemia. Acute renal failure -Most likely prerenal since patient is hypotensive and dehydrated. -Resolved. Uncontrolled diabetes complicated by peripheral neuropathy/diabetic foot ulcer -Metformin held initially due to renal sufficiency. We'll consider restarting metformin upon discharge. -Patient on insulin sliding scale. Pending hemoglobin A1c. -Continue with insulin sliding scale. Hypotension -only one abnormal value. This may not be a true value. Patient has been hypertensive. History of hypertension -Will resume home medication. History of pancreatitis/GERD/coronary artery disease/fibromyalgia/gout/hepatitis -Continue home medication. Cocaine abuse -Education given. Urine drug screen on positive for cocaine. DVT prophylaxis -Lovenox Discharge Planning Pending consult from orthopedic surgeon. Patient also needs a PT eval most likely he may need to go to a rehabilitation center. Lelo Valle MD Jul 01, 2017 4:20 pm
[2017-07-01] MEDS: ACETAMINOPHEN/HYDROcodone 325 MG/5 MG TAB PO PRN ×2 (16:48→20:36)
[2017-07-01] MEDS ORDERED: DEXTROSE 50% IN WATER 50 ML VIAL(D50) IV PRN (17:15)
[2017-07-01] MEDS ORDERED: GLUCAGON 1 MG/ML VIAL OTHER PRN (17:15)
[2017-07-01] MEDS: PANTOPRAZOLE SOD 20 MG DELAYED RELEASE TAB PO SCH (17:43)
[2017-07-01] MEDS: LIPASE/PROTEASE/AMYLASE (24,000/76,000/120,000) CAP PO SCH (17:43)
[2017-07-01] MEDS: MAGNESIUM OXIDE 400 MG TAB PO SCH (17:43)
[2017-07-01] MEDS: INSULIN ASPART SUPPLEMENTAL SCALE SQ SCH (17:48)
[2017-07-01] MEDS: POTASSIUM PHOSPHATE MONOBASIC 500 MG TAB PO SCH (20:34)
[2017-07-01] MEDS: CALCIUM CARBONATE 500 MG CHEWABLE TAB CHEW SCH (20:34)
[2017-07-01] MEDS: RIFAXIMIN 550 MG TAB PO SCH (20:34)
--- NOTE | 2017-07-01 20:34 | PD.CONS ---
cc: Fred Obregon Jr., MD HPI Service Orthopedic Surgeons Consult Requested By Primary Care Physician No Primary Care Physician Admission Diagnosis non-STEMI, generalized weakness, humeral fracture, uncontrolled DM Diagnoses: History of Present Illness 42-year-old male past medical history of type 2 diabetes with peripheral neuropathy, coronary artery disease, history of CHF, fibromyalgia, GERD, history failure to thrive who presented with left shoulder and hip pain 1 week ago. Patient sustained a fall about a week ago. c/o left hip pain with difficulty weightbearing as well as left shoulder pain. Denies any head injuries. Denies loss of consciousness. Currently patient's pain in both areas are currently mild, 3 out of 10, exacerbated by any range of motion, relieved at rest and with IV pain medicine, pain is nonradiating, not associated with any paresthesia and numbness to the extremity. PFSH Past Family Social History Past Medical History Type 2 diabetes Hypertension History failure to thrive Complete past medical history is unobtainable secondary to patient's clinical condition. Per chart review: Arthritis Coronary artery disease Hypercholesterolemia Congestive heart failure, unknown type Fibromyalgia GERD Gout Hepatitis Hypertension Kidney stones Anorexia History of pancreatitis Past Surgical History Cholecystectomy Left hip replacement secondary to a fall Right nephrolithotripsy with J-tube placement Left hip surgery Vasectomy Previous PEG tube placement Reported Medications Atenolol 25 Mg Tab 12.5 Mg PO DAILY Bactrim DS (Sulfamethoxazole-Trimethoprim) 800-160 Mg Tab 1 Tab PO BID [place] (Hydrocodone-Acetaminophen) 5-325 mg Tab 1 Tab PO Q6HR PRN Pantoprazole (Pantoprazole Sodium) 20 Mg Tab 20 Mg PO DAILY Canasa Supp (Mesalamine) 1,000 Mg Supp 1,000 Mg RECTAL HS Drisdol (Ergocalciferol) 50,000 Unit Cap 50,000 Units PO Q7D Bentyl (Dicyclomine HCl) 20 Mg Tab 20 Mg PO TID Cholestyramine 4 Gm/Pkt Powd 4 Gm PO DAILY@06 Magnesium Oxide 400 Mg Tab 400 Mg PO DAILY Xifaxan (Rifaximin) 550 Mg Tab 550 Mg PO BID K-Phos (Potassium Phosphate Monobasic) 500 Mg Tab 1,000 Mg PO Q12HR Creon (Amylase/Lipase/Protease) 24,000-76,000-120,000 Units Cap 1 Cap PO TID Nystop Topical (Nystatin Topical) 100,000 Unit/Gm Powd 1 Applic TOPICAL DAILY PRN Acidophilus/l-Sporogenes (Lactobacillus Acidophilus) 1 Tab Tab 1 Tab PO Q8HR Ferrous Sulfate 325 Mg Tab 325 Mg PO BID@,17 Calcium Carbonate (Antacid) 500 Mg Chew 500 Mg CHEW Q12HR Zofran (Ondansetron HCl) 4 Mg Tab 4 Mg PO Q6HR PRN Metformin (Metformin HCl) 500 Mg Tab 500 Mg PO BIDPC With meals Allergies: Coded Allergies: *MDRO Multi-Drug Resistant Organism (Verified Adverse Reaction, Unknown, MRSA, 01/10/17) MRSA PCR screen POSITIVE - 11/28/16 Review of Systems Musculoskeletal: DENIES: Joint pain, Muscle aches, Stiffness, Joint Swelling, Back pain, Neck pain Integumentary: DENIES: Abnormal pigmentation, Nail changes, Pruritus, Rash Past Family Social History Past Medical History Type 2 diabetes Hypertension History failure to thrive Complete past medical history is unobtainable secondary to patient's clinical condition. Per chart review: Arthritis Coronary artery disease Hypercholesterolemia Congestive heart failure, unknown type Fibromyalgia GERD Gout Hepatitis Hypertension Kidney stones Anorexia History of pancreatitis Past Surgical History Cholecystectomy Left hip replacement secondary to a fall Right nephrolithotripsy with J-tube placement Left hip surgery Vasectomy Previous PEG tube placement Allergies: Coded Allergies: *MDRO Multi-Drug Resistant Organism (Verified Adverse Reaction, Unknown, MRSA, 01/10/17) MRSA PCR screen POSITIVE - 11/28/16 Active Ordered Medications Current Medications Medications (Trade) Dose Ordered Sig/Abbi Route Start Time Stop Time Status Last Admin (NS Flush) 2 ml UNSCH PRN IVF 06/30/17 15:00 Sodium Chloride 1,000 ml @ 70 mls/hr [id number] IV 06/30/17 16:30 07/01/17 07:20 (Aspirin Chew) 81 mg DAILY CHEW 07/01/17 09:00 07/01/17 09:00 (D50w (Vial) Inj) 50 ml UNSCH PRN IV 06/30/17 18:00 (Glucagon Inj) 1 mg UNSCH PRN OTHER 06/30/17 18:00 ([place] 5-325 Mg) 1 tab Q4H PRN PO 07/01/17 02:00 ([place] 10-325 Mg) 1 tab Q4H PRN PO 07/01/17 02:00 07/01/17 05:55 ([place] 5-325 Mg) 1 tab Q4H PRN PO 07/01/17 14:00 ([place] 5-325 Mg) 2 tab Q4H PRN PO 07/01/17 14:00 07/01/17 16:48 (Tenormin) 12.5 mg DAILY PO 07/02/17 09:00 (Tums Chew) 500 mg Q12HR CHEW 07/01/17 21:00 (Drisdol) 50,000 units Q7D PO 07/02/17 09:00 (Mag-Ox) 400 mg DAILY PO 07/01/17 16:30 07/01/17 17:43 (Canasa Supp) 1,000 mg HS RECTAL 07/01/17 21:00 (Creon 24-76-120) 1 cap TID PO 07/01/17 18:00 07/01/17 17:43 (Protonix) 20 mg DAILY PO 07/01/17 16:30 07/01/17 17:43 (K-Phos) 1,000 mg Q12HR PO 07/01/17 21:00 (Xifaxan) 550 mg BID PO 07/01/17 21:00 (Lovenox Inj) 40 mg Q24H SQ 07/02/17 09:00 (D50w (Vial) Inj) 50 ml UNSCH PRN IV 07/01/17 17:15 (Glucagon Inj) 1 mg UNSCH PRN OTHER 07/01/17 17:15 (NovoLOG SUPPLEMENTAL SCALE) 1 ACHS SLIDING SCALE SQ 07/01/17 21:00 07/01/17 17:48 Reported Meds & Active Scripts Active Atenolol 25 Mg Tab 12.5 Mg PO DAILY [place] (Hydrocodone-Acetaminophen) 5-325 mg Tab 1 Tab PO Q6HR PRN Pantoprazole (Pantoprazole Sodium) 20 Mg Tab 20 Mg PO DAILY [place] Supp (Mesalamine) 1,000 Mg Supp 1,000 Mg RECTAL HS Magnesium Oxide 400 Mg Tab 400 Mg PO DAILY Xifaxan (Rifaximin) 550 Mg Tab 550 Mg PO BID K-Phos (Potassium Phosphate Monobasic) 500 Mg Tab 1,000 Mg PO Q12HR Creon (Amylase/Lipase/Protease) 24,000-76,000-120,000 Units Cap 1 Cap PO TID Calcium Carbonate (Antacid) 500 Mg Chew 500 Mg CHEW Q12HR Reported Ergocalciferol 50,000 Unit Cap 50,000 Units PO Q7D Zofran (Ondansetron HCl) 4 Mg Tab 4 Mg PO Q6HR PRN Metformin (Metformin HCl) 500 Mg Tab 500 Mg PO BIDPC With meals Family History Parents and siblings have history of coronary artery disease and diabetes. Social History Patient was at home by himself. Uses cocaine. Denies any other illicit drug use. Occasionally drinks alcohol. Physical Exam Vital Signs Vital Signs Date Time Temp Pulse Resp B/P (MAP) Pulse Ox O2 Delivery O2 Flow Rate FiO2 07/01/17 18:18 96 07/01/17 17:49 16 07/01/17 17:05 97 07/01/17 16:38 97.3 97 18 132/74 (93) 07/01/17 15:00 101 07/01/17 12:55 97.4 94 18 161/87 (111) 96 07/01/17 08:01 18 07/01/17 06:00 92 07/01/17 05:00 93 07/01/17 04:00 98.4 98 20 159/96 (117) 96 07/01/17 04:00 98 07/01/17 03:00 93 07/01/17 02:00 95 07/01/17 01:00 100 07/01/17 00:00 103 07/01/17 00:00 98.0 103 20 168/105 (126) 98 06/30/17 21:34 104 17 172/97 (122) 96 Room Air Physical Exam Head: NC/AT Neck: No pain with any range of motion and neck. Trachea is midline. No tenderness to palpation along posterior cervical elements. Pulmonary: Normal respiratory effort. Left upper extremity: Sling in place. Tenderness, ecchymosis and swelling about the proximal humerus. No deformities. Intact sensation distally in median, ulnar, and radial nerve. Intact motor in anterior interosseous, posterior interosseous, and ulnar nerve. 2+ radial artery pulses. Good cap refill. RUE: nvi RIGHT lower extremity: No deformity, grossly Neurovascularly intact, +EHL/FHL. + PT/DP pulses. Supple compartments. Negative Homans sign. LEFT lower extremity: TTP about the GT and anterior pelvis rim. +crepitus with left hip range of motion. Generalized decreased range of motion secondary to pain. No deformity, grossly Neurovascularly intact otherwise, +EHL/FHL. + PT/ DP pulses. Supple compartments. Negative Homans sign. Laboratory Laboratory Tests Test 06/30/17 20:31 07/01/17 02:44 07/01/17 07:00 Urine Color YELLOW Urine Turbidity CLEAR Urine pH 5.5 Urine Specific [place] 1.039 Urine Protein 30 Urine Glucose (UA) 1000 Urine Ketones TRACE Urine Occult Blood TRACE Urine Nitrite NEG Urine Bilirubin NEG Urine Urobilinogen LESS THAN 2.0 Urine Leukocyte Esterase NEG Urine RBC 17 Urine WBC 4 Urine Squamous Epithelial Cells <1 Microscopic Urinalysis Comment CULT NOT INDICATED Urine Opiates Screen NEG Urine Barbiturates Screen NEG Urine Amphetamines Screen NEG Urine Benzodiazepines Screen NEG Urine Cocaine Screen POS Urine Cannabinoids Screen NEG White Blood Count 8.4 Red Blood Count 2.93 Hemoglobin 9.4 Hematocrit 27.3 Mean Corpuscular Volume 93.1 Mean Corpuscular Hemoglobin 32.2 Mean Corpuscular Hemoglobin Concent 34.6 Red Cell Distribution Width 13.0 Platelet Count 202 Mean Platelet Volume 8.2 Blood Urea Nitrogen 23 Creatinine 1.16 Random Glucose 233 Calcium Level 8.5 Sodium Level 134 Potassium Level 4.5 Chloride Level 100 Carbon Dioxide Level 27.5 Anion Gap 7 Estimat Glomerular Filtration Rate 68 Troponin I 0.09 0.08 Triglycerides Level 217 Cholesterol Level 150 LDL Cholesterol 81 HDL Cholesterol 25.3 Cholesterol/HDL Ratio 5.92 Result Diagram: 07/01/174 07/01/17 0244 Imaging Last [address] 06/30/171455 Signed Impressions: Service Date/Time: Friday, June 30, 2017 15:33 - CONCLUSION: Unremarkable study. Magi Flores MD Chest X-Ray 06/30/171455 Signed Impressions: Service Date/Time: Friday, June 30, 2017 15:26 - CONCLUSION: No acute cardiopulmonary disease. Magi Flores MD Cervical Spine CT 06/30/171455 Signed Impressions: Service Date/Time: Friday, June 30, 2017 15:33 - CONCLUSION: Unremarkable study. Magi Flores MD Shoulder X-Ray 06/30/17 0000 Signed Impressions: Service Date/Time: Friday, June 30, 2017 15:23 - CONCLUSION: Proximal humeral fracture. Magi Flores MD Lower Extremity CT 06/30/17 0000 Signed Impressions: Service Date/Time: Friday, June 30, 2017 16:52 - CONCLUSION: Chronic changes and no evidence for acute fracture. Magi Flores MD Hip and Pelvis X-Ray 06/30/17 0000 Signed Impressions: Service Date/Time: Friday, June 30, 2017 15:28 - CONCLUSION: Questionable fracture of left acetabulum and possibly left femoral neck. Magi Flores MD Assessment & Plan Assessment and Plan 42-year-old male With a complicated Past medical history, status post fall, Complaint LEFT flank, left shoulder and LEFT hip pain. he is s/p previous hip IMN fixation. He is grossly neurovascularly intact distally and has some generalized decrease in LEFT hip range of motion secondary to the trauma and a bony contusion. Left hip hardware is in place and intact. He is in a sling for left shoulder injury. X-ray and subsequent CAT scan negative for femoral neck fracture. xray of the shoulder reveal surgical neck fracture. Again I believe he likely sustained a bony contusion around the hip from the fall, in addition to the left proximal humerus fracture. I recommended 1- sling for comfort 1-2 wks, left shoulder then start pendulum exercises with PT. MORALES ALVAREZ. 2- WBAT BLE, ROM as tolerated left hip. No need for any surgical intervention. Risks, benefits, and alternatives discussed with the patient. All questions answered. Follow up in 2 wks, Dr Obregon. Fred Obregon Jr., MD Jul 01, 2017 20:34
[2017-07-01] MEDS ORDERED: MESALAMINE 1000 MG SUPP RECTAL SCH (21:00)
[2017-07-02] VITALS (10 sets, daily range): BP systolic 148–175; BP diastolic 94–113; PULSE 77–94; RESP 16–20; TEMP 98.1–98.6; O2SAT 97–98
[2017-07-02 00:02] LABS: MRSA PCR POSITIVE (NEGATIVE); STAPH AUREUS PCR POSITIVE (NEGATIVE)
[2017-07-02] MEDS: ACETAMINOPHEN/HYDROcodone 325 MG/5 MG TAB PO PRN (03:39)
[2017-07-02] MEDS: INSULIN ASPART SUPPLEMENTAL SCALE SQ SCH ×2 (06:32→11:30)
[2017-07-02 06:53] LABS: HEMATOCRIT 26.5 % (39.0-51.0); MEAN CELL VOLUME 93.8 FL (80.0-100.0); MEAN CORPUSCULAR HEMOGLOBIN 32.2 PG (27.0-34.0); MEAN CORPUSCULAR HGB CONC 34.4 % (32.0-36.0); PLATELET COUNT 216 TH/MM3 (150-450); RED BLOOD COUNT 2.83 MIL/MM3 (4.50-5.90); RED CELL DISTRIBUTION WIDTH 12.9 % (11.6-17.2); REVIEW FLAG FINAL; WHITE BLOOD COUNT 6.2 TH/MM3 (4.0-11.0)
[2017-07-02 07:13] LABS: BICARBONATE 27.2 MEQ/L (21.0-32.0); POTASSIUM 4.2 MEQ/L (3.5-5.1)
[2017-07-02] MEDS: RIFAXIMIN 550 MG TAB PO SCH (08:04)
[2017-07-02] MEDS: CALCIUM CARBONATE 500 MG CHEWABLE TAB CHEW SCH (08:04)
[2017-07-02] MEDS: MAGNESIUM OXIDE 400 MG TAB PO SCH (08:04)
[2017-07-02] MEDS: ASPIRIN 81 MG CHEW TAB CHEW SCH (08:05)
[2017-07-02] MEDS: PANTOPRAZOLE SOD 20 MG DELAYED RELEASE TAB PO SCH (08:05)
[2017-07-02] MEDS: POTASSIUM PHOSPHATE MONOBASIC 500 MG TAB PO SCH (08:05)
[2017-07-02] MEDS: LIPASE/PROTEASE/AMYLASE (24,000/76,000/120,000) CAP PO SCH (08:05)
[2017-07-02] MEDS ORDERED: ERGOCALCIFEROL (VIT D2) 50,000 UNIT CAP PO SCH (09:00)
[2017-07-02] MEDS ORDERED: ATENOLOL 25 MG TAB PO SCH (09:00)
[2017-07-02] MEDS ORDERED: ENOXAPARIN SODIUM 40 MG/0.4 ML SYRINGE SQ SCH (09:00)
--- NOTE | 2017-07-02 10:06 | HHI.PR ---
Subjective Remarks Follow-up left proximal humerus fracture/elevated cardiac enzyme 07/02/17-patient seen and examined, reports some left upper extremity pain but denies any chest pain or shortness of breath. Overall stable and currently afebrile. Case discussed with top case assembler regarding discharge disposition Objective Vitals Vital Signs Date Time Temp Pulse Resp B/P (MAP) Pulse Ox O2 Delivery O2 Flow Rate FiO2 07/02/17 06:00 89 07/02/17 05:00 93 07/02/17 04:00 87 07/02/17 04:00 98.3 87 20 162/109 (126) 97 07/02/17 03:00 90 07/02/17 02:00 89 07/02/17 01:00 92 07/02/17 00:00 98.2 88 20 148/94 (112) 97 07/02/17 00:00 88 07/01/17 23:00 98 07/01/17 22:00 99 07/01/17 21:00 90 07/01/17 20:00 93 07/01/17 20:00 98.0 93 20 153/99 (117) 98 07/01/17 18:18 96 07/01/17 17:49 16 07/01/17 17:05 97 07/01/17 16:38 97.3 97 18 132/74 (93) 07/01/17 15:00 101 07/01/17 12:55 97.4 94 18 161/87 (111) 96 I/O 07/01/17 07/01/17 07/01/17 07/02/17 07/02/17 07/02/17 06:59 14:59 22:59 06:59 14:59 22:59 Intake Total 940 ml 350 ml 1180 ml Output Total 600 ml 750 ml 650 ml Balance 340 ml -400 ml 530 ml Intake Oral 240 ml 350 ml 480 ml IV Total 700 ml 700 ml Output Urine Total 600 ml 750 ml 650 ml # Voids 2 # Bowel Movements 1 1 Result Diagram: 07/02/17 0557 07/02/17 0557 Imaging Last Impressions Head CT 06/30/171455 Signed Impressions: Service Date/Time: Friday, June 30, 2017 15:33 - CONCLUSION: Unremarkable study. K. Milan Flores MD Chest X-Ray 06/30/171455 Signed Impressions: Service Date/Time: Friday, June 30, 2017 15:26 - CONCLUSION: No acute cardiopulmonary disease. Magi Flores MD Cervical Spine CT 06/30/17 1456 Signed Impressions: Service Date/Time: Friday, June 30, 2017 15:33 - CONCLUSION: Unremarkable study. Magi Flores MD Shoulder X-Ray 06/30/17 0000 Signed Impressions: Service Date/Time: Friday, June 30, 2017 15:23 - CONCLUSION: Proximal humeral fracture. Magi Flores MD Lower Extremity CT 06/30/17 0000 Signed Impressions: Service Date/Time: Friday, June 30, 2017 16:52 - CONCLUSION: Chronic changes and no evidence for acute fracture. Magi Flores MD Hip and Pelvis X-Ray 06/30/17 0000 Signed Impressions: Service Date/Time: Friday, June 30, 2017 15:28 - CONCLUSION: Questionable fracture of left acetabulum and possibly left femoral neck. Magi Flores MD Objective Remarks GENERAL: NAD SKIN: Warm and dry. HEAD: Normocephalic. EYES: No scleral icterus. No injection or drainage. NECK: Supple, trachea midline. No JVD or lymphadenopathy. CARDIOVASCULAR: Regular rate and rhythm without murmurs, gallops, or rubs. RESPIRATORY: Breath sounds equal bilaterally. No accessory muscle use. GASTROINTESTINAL: Abdomen soft, non-tender, nondistended. MUSCULOSKELETAL: No cyanosis, or edema. LUE in sling; left lower extremity with some full range of motion BACK: Nontender without obvious deformity. No CVA tenderness. A/P Problem List: (1) Humeral fracture ICD Code: S42.309A - Unspecified fracture of shaft of humerus, unspecified arm , initial encounter for closed fracture Status: Acute (2) Cocaine abuse ICD Code: F14.10 - Cocaine abuse, uncomplicated Status: Acute (3) Uncontrolled diabetes mellitus ICD Code: E11.65 - Type 2 diabetes mellitus with hyperglycemia Status: Acute Assessment and Plan 42-year-old man with Left proximal humerus fracture -X-ray showed proximal humeral fracture. -Appreciate input from orthopedic surgery -Continue with sling 1-2 weeks then pendulum exercise. Nonweightbearing left upper extremity Left hip pain -CT lower extremity with chronic change and no evidence of left femoral neck fracture -No indication for surgery for orthopedic surgery -Weightbearing as tolerated bilateral lower extremity Elevated troponins 0.31 -Secondary to cocaine use and per cardiology most likely due to poor care -Nuclear stress test negative for any ischemia. Acute renal failure -Resolved. Uncontrolled diabetes complicated by peripheral neuropathy/diabetic foot ulcer -Metformin held initially due to renal sufficiency. -Patient on insulin sliding scale. hemoglobin A1c 10.5. -Continue with insulin sliding scale. Hypotension -Labile BP -We will give atenolol 25 mg by mouth 1 now -Increase atenolol to 50 mg by mouth daily on 07/03/17 History of pancreatitis/GERD/coronary artery disease/fibromyalgia/gout/hepatitis -Continue home medication. Cocaine abuse -Education given. Urine drug screen on positive for cocaine. DVT prophylaxis -Lovenox Problem Qualifiers (1) Humeral fracture: (2) Uncontrolled diabetes mellitus: Burak Hinkle MD Jul 02, 2017 10:06
--- NOTE | 2017-07-02 10:07 | HHI.FF ---
Face to Face Verification Diagnosis: (1) Humeral fracture Physical Therapy Order: Evaluate and Treat Home Health Nursing Order: Signs/symptoms of disease process I have seen patient Dalton Arce on 07/02/17. My clinical findings support the need for the requested home health care services because: Deconditioned w/ increased weakness I certify that my clinical findings support that this patient is homebound because: Poor cardiac reserve Burak Hinkle MD Jul 02, 2017 10:07
[2017-07-02] MEDS ORDERED: ATEN50TA PO (10:10)
[2017-07-02] MEDS ORDERED: ATENOLOL 25 MG TAB PO ONE (10:15)
--- NOTE | 2017-07-02 10:15 | HHI.DS ---
Discharge Summary Admission Date Jun 30, 2017 at 17:15 Discharge Date: Jul 02, 2017 Admitting Diagnosis non-STEMI, generalized weakness, humeral fracture, uncontrolled DM (1) Humeral fracture ICD Code: S42.309A - Unspecified fracture of shaft of humerus, unspecified arm , initial encounter for closed fracture Status: Acute (2) Cocaine abuse ICD Code: F14.10 - Cocaine abuse, uncomplicated Status: Acute (3) Uncontrolled diabetes mellitus ICD Code: E11.65 - Type 2 diabetes mellitus with hyperglycemia Status: Acute Procedures none Brief History - From Admission 42-year-old male past medical history of type 2 diabetes with peripheral neuropathy, coronary artery disease, history of CHF, fibromyalgia, GERD, history failure to thrive who presented with left shoulder and hip pain 1 week ago. Patient stated that he walks with a walker and his feet gave out on him in which she fell down on his left side. He stated that after that incident his sister helped him get home in bed where he laid there for 1 week. He said that he could not move because of severe the pain. Because of this he finally decided go to emergency department. In the ED patient had imaging which showed left shoulder fracture and probable left hip fracture. He was also found to have elevated troponins. I asked patient about chest pain since his troponins were elevated. He denied any chest pain, shortness of breathing, palpitation, diaphoresis or nausea vomiting. He did admit to having cocaine one week ago. He stated after that use he had no symptoms of chest pain or palpitations from the cocaine. Patient stated because of his pain he has not been eating much. Deny any lightheadedness or dizziness. But does states that he has a generalized weakness. Patient stated that he is on metformin and his blood sugar is usually around 150s. He also stated that he is on insulin sliding scale but does not use that much. All other review symptoms reviewed and all negative. CBC/BMP: 07/02/17 0557 07/02/17 0557 Significant Findings Laboratory Tests Test 06/30/17 15:00 06/30/17 20:31 07/01/17 02:44 07/01/17 07:00 White Blood Count 11.8 TH/MM3 (4.0-11.0) Red Blood Count 3.50 MIL/MM3 (4.50-5.90) 2.93 MIL/MM3 (4.50-5.90) Hemoglobin 11.1 GM/DL (13.0-17.0) 9.4 GM/DL (13.0-17.0) Hematocrit 33.4 % (39.0-51.0) 27.3 % (39.0-51.0) Monocytes (%) (Auto) 10.1 % (0.0-8.0) Monocytes # (Auto) 1.2 TH/MM3 (0-0.9) Blood Urea Nitrogen 24 MG/DL (7-18) 23 MG/DL (7-18) Creatinine 1.70 MG/DL (0.60-1.30) Random Glucose 415 MG/DL (74-106) 233 MG/DL (74-106) Albumin 3.3 GM/DL (3.4-5.0) Alkaline Phosphatase 151 U/L (45-117) Aspartate Amino Transf (AST/SGOT) 9 U/L (15-37) Sodium Level 130 MEQ/L (136-145) 134 MEQ/L (136-145) Chloride Level 93 MEQ/L (98-107) Estimat Glomerular Filtration Rate 44 ML/MIN (>89) 68 ML/MIN (>89) Hemoglobin A1c 10.5 % (4.3-6.0) Troponin I 0.32 NG/ML (0.02-0.05) 0.09 NG/ML (0.02-0.05) 0.08 NG/ML (0.02-0.05) Urine Specific [place] 1.039 (1.002-1.035) Urine Protein 30 mg/dL (NEG-TRACE) Urine Glucose (UA) 1000 mg/dL (NEG) Urine Ketones TRACE mg/dL (NEG) Urine Occult Blood TRACE (NEG) Urine RBC 17 /hpf (0-3) Urine Cocaine Screen POS (NEG) Triglycerides Level 217 MG/DL (42-150) HDL Cholesterol 25.3 MG/DL (40.0-60.0) Test 07/01/17 21:00 07/02/17 05:57 Red Blood Count 2.83 MIL/MM3 (4.50-5.90) Hemoglobin 9.1 GM/DL (13.0-17.0) Hematocrit 26.5 % (39.0-51.0) Sodium Level 131 MEQ/L (136-145) Chloride Level 97 MEQ/L (98-107) Imaging Last Impressions Head CT 06/30/17 1456 Signed Impressions: Service Date/Time: Friday, June 30, 2017 15:33 - CONCLUSION: Unremarkable study. Magi Flores MD Chest X-Ray 06/30/17 1456 Signed Impressions: Service Date/Time: Friday, June 30, 2017 15:26 - CONCLUSION: No acute cardiopulmonary disease. Magi Flores MD Cervical Spine CT 06/30/17 1456 Signed Impressions: Service Date/Time: Friday, June 30, 2017 15:33 - CONCLUSION: Unremarkable study. Magi Flores MD Shoulder X-Ray 06/30/17 0000 Signed Impressions: Service Date/Time: Friday, June 30, 2017 15:23 - CONCLUSION: Proximal humeral fracture. Magi Flores MD Lower Extremity CT 06/30/17 0000 Signed Impressions: Service Date/Time: Friday, June 30, 2017 16:52 - CONCLUSION: Chronic changes and no evidence for acute fracture. Magi Flores MD Hip and Pelvis X-Ray 06/30/17 0000 Signed Impressions: Service Date/Time: Friday, June 30, 2017 15:28 - CONCLUSION: Questionable fracture of left acetabulum and possibly left femoral neck. Magi Flores MD PE at Discharge GENERAL: NAD SKIN: Warm and dry. HEAD: Normocephalic. EYES: No scleral icterus. No injection or drainage. NECK: Supple, trachea midline. No JVD or lymphadenopathy. CARDIOVASCULAR: Regular rate and rhythm without murmurs, gallops, or rubs. RESPIRATORY: Breath sounds equal bilaterally. No accessory muscle use. GASTROINTESTINAL: Abdomen soft, non-tender, nondistended. MUSCULOSKELETAL: No cyanosis, or edema. LUE in sling; left lower extremity with some full range of motion BACK: Nontender without obvious deformity. No CVA tenderness. Hospital Course Patient admitted secondary to left upper extremity proximal humerus fracture for which orthopedic surgery was consulted however he treated conservatively with a sling. Second to elevated troponin I, cardiology was consulted and he underwent nuclear stress test which was resulted as negative without any evidence of ischemia. He was started on oral antihypertensive medication including atenolol which dose was increased to 50 mg daily prior to discharge. DVT and GI prophylaxis were provided. Patient was continued on his treatment for other chronic medical conditions. Physical therapy was consulted. Prior to discharge, vitals remained stable and patient's condition improved. Pt Condition on Discharge: Stable Discharge Disposition: Disch w/ Home Health Serv Discharge Time: > 30 minutes Discharge Instructions DIET: Follow Instructions for: Diabetic Diet Activities you can perform: Weight Bearing as Angi (BLE), Non Weight Bearing ( LUE) Follow up Referrals: Cardiology Orthopedics - 2 Weeks PCP Follow-up - 1 Week New Medications: Atenolol (Atenolol) 50 Mg Tab 50 MG PO DAILY for Blood Pressure Management for 30 Days, #30 TAB Continued Medications: Calcium Carbonate (Antacid) (Calcium Carbonate (Antacid)) 500 Mg Chew 500 MG CHEW Q12HR for dyspepsia/hypocalcemia, #30 EA Ergocalciferol (Ergocalciferol) 50,000 Unit Cap 88623 UNITS PO Q7D for Nutritional Supplement, #30 CAP 0 Refills Hydrocodone-Acetaminophen (Spade) 5-325 mg Tab 1 TAB PO Q6HR PRN for PAIN, #14 TAB 0 Refills Magnesium Oxide (Magnesium Oxide) 400 Mg Tab 400 MG PO DAILY for Nutritional Supplement, #15 TAB 0 Refills Mesalamine Supp (Canasa Supp) 1,000 Mg Supp 1000 MG RECTAL HS for diarrhea, #30 SUPP Metformin (Metformin) 500 Mg Tab 500 MG PO BIDPC for Blood Sugar Management, #60 TAB 0 Refills With meals Pancrelipase (Creon) 24,000-76,000-120,000 Units Cap 1 CAP PO TID for diarrhea, #90 CAP Pantoprazole (Pantoprazole) 20 Mg Tab 20 MG PO DAILY for Reflux, #30 TAB 0 Refills Potassium Phosphate Monobasic (K-Phos) 500 Mg Tab 1000 MG PO Q12HR for low K and Phos, #30 TAB Rifaximin (Xifaxan) 550 Mg Tab 550 MG PO BID for diarrhea , #60 TAB Discontinued Medications: Atenolol (Atenolol) 25 Mg Tab 12.5 MG PO DAILY for Blood Pressure Management, #30 TAB 0 Refills Ondansetron (Zofran) 4 Mg Tab 4 MG PO Q6HR PRN for NAUSEA OR VOMITING, TAB 0 Refills Burak Hinkle MD Jul 02, 2017 10:14
[2017-07-03] MEDS ORDERED: ATENOLOL 50 MG TAB PO SCH (09:00)
== END 2017-07-02 16:47 | disposition home or self-care (01) | DRG 563 ==
LOC: NEPE 14:31 → NEDA 17:15 → HCIS 22:16
PROVIDERS: ADMIT Hospitalist; ATTEND Hospitalist
DX: S42.202A Unspecified fracture of upper end of left humerus, initial encounter for closed fracture (principal); N17.9 Acute kidney failure, unspecified; E11.42 Type 2 diabetes mellitus with diabetic polyneuropathy; I11.0 Hypertensive heart disease with heart failure; I50.9 Heart failure, unspecified; E11.621 Type 2 diabetes mellitus with foot ulcer; E11.65 Type 2 diabetes mellitus with hyperglycemia; W18.39XA Other fall on same level, initial encounter; Y93.01 Activity, walking, marching and hiking; Y92.008 Other place in unspecified non-institutional (private) residence as the place of occurrence of the external cause; F14.10 Cocaine abuse, uncomplicated; Z87.442 Personal history of urinary calculi; K21.9 Gastro-esophageal reflux disease without esophagitis; M10.9 Gout, unspecified; M79.7 Fibromyalgia; E78.00 Pure hypercholesterolemia, unspecified; M25.552 Pain in left hip; I25.10 Atherosclerotic heart disease of native coronary artery without angina pectoris; M19.90 Unspecified osteoarthritis, unspecified site; R63.0 Anorexia; Z96.642 Presence of left artificial hip joint; L97.509 Non-pressure chronic ulcer of other part of unspecified foot with unspecified severity; E86.0 Dehydration; R74.8 Abnormal levels of other serum enzymes; B19.20 Unspecified viral hepatitis C without hepatic coma; S70.02XA Contusion of left hip, initial encounter
CPT/HCPCS: 70450; 71010; 72125; 73030; 73502; 73700; 78452; 80048; 80053; 80061; 80307; 81001; 82010; 82550; 82948; 83036; 83735; 84100; 84484; 85025; 85027; 85610; 85730; 87640; 87641; 93005; 93017; 96374; A9502; J1650; J1815; J2270; J2405; J2785; J7030

== ENCOUNTER 2017-09-13 21:31 | Inpatient (IN) | payer MEDICAID ==
[~2017-09-13] VITALS: Ht 180.3 cm; Wt 72.8 kg
[~2017-09-13 21:31] MED LIST changes: -ATEN25TA PO; +ATEN50TA PO; -BACT800T5 PO; -BENT20TA PO; -CHOL4POW4 PO; -DRIS50002 PO; -FERR325T PO; -LACT PO; -NYST10007 TOPICAL; +VITA500012 PO; -ZOFR4TAB PO
[2017-09-13 21:34] VITALS: BP 81/51; PULSE 119; RESP 10; TEMP 97.6; O2SAT 99
[2017-09-13] MEDS ORDERED: SODIUM CHLOR 0.9% 1000 ML INJ 1,000 ML IV ONE ×3 (22:00→23:30)
[2017-09-13] MEDS ORDERED: IOHEXOL 350 MG/ML 10 ML VIAL (for RAD DIAG) IVCONTRAST ONE (22:06)
--- NOTE | 2017-09-13 22:08 | PD ---
HPI Chief Complaint: Seizure Time Seen by Provider: 21:55 Travel History International Travel<30 days: No Contact w/Intl Traveler<30days: No Traveled to known affect area: No History of Present Illness HPI 42yo M with PMH of DM, peripheral neuropathy, CAD, CHD, fibromyalgia, GERD, left humeral fracture presents to the ED with c/o seizure today. As per my nurse, pt had a witnessed generalized tonic clonic seizure and fell on the floor for about 30 seconds. No medication was given. Pt is complaining of left shoulder pain, left neck pain and blurry vision in right eye. Pt has a dilated and unreactive pupil on right and denies any history of eye surgery. Denies any chest pain, sob, n/v, abdominal pain, new focal weakness or numbness. Pt does use cocaine occasionally but none today. Does not drink daily. No history of seizures. PFSH Past Medical History Arthritis: Yes Asthma: No Autoimmune Disease: No Blood Disorders: No Anxiety: No Depression: Yes Heart Rhythm Problems: No Cancer: No Cardiovascular Problems: Yes High Cholesterol: Yes Chemotherapy: No Chest Pain: Yes Congestive Heart Failure: Yes COPD: No Cerebrovascular Accident: No Diabetes: Yes Patient Takes Glucophage: Yes Diminished Hearing: No Endocrine: Yes Fibromyalgia: Yes Gastrointestinal Disorders: Yes GERD: Yes Gout: Yes Genitourinary: Yes Headaches: No Hepatitis: Yes (C) Hiatal Hernia: No Hypertension: Yes Immune Disorder: No Implanted Vascular Access Dvce: Yes Kidney Stones: Yes Musculoskeletal: Yes Neurologic: Yes Psychiatric: Yes Reproductive: Yes Respiratory: Yes Immunizations Current: Yes Migraines: No Radiation Therapy: No Renal Failure: No Seizures: No Sickle Cell Disease: No Sleep Apnea: No Thyroid Disease: No Ulcer: No Past Surgical History Abdominal Surgery: Yes (RIGHT NEPHROLITHOTRIPSY, J TUBE removed) AICD: No Arteriovenous Shunt: No Body Medical Devices: LEFT HIP SURGERY Cardiac Surgery: No Ear Surgery: No Endocrine Surgery: No Eye Surgery: No Genitourinary Surgery: Yes (VASECTOMY) Gynecologic Surgery: No Insulin Pump: No Joint Replacement: Yes (LEFT HIP CURTIS/PIN) Neurologic Surgery: No Oral Surgery: No Pacemaker: No Thoracic Surgery: No Other Surgery: Yes (previously had peg tube) Social History Alcohol Use: No (occassionally) Tobacco Use: No Substance Use: No (hx of cocaine use) Allergies-Medications (Allergen,Severity, Reaction): Coded Allergies: *MDRO Multi-Drug Resistant Organism (Verified Adverse Reaction, Unknown, MRSA, 09/13/17) MRSA PCR screen POSITIVE - 11/28/16 Reported Meds & Prescriptions Reported Meds & Active Scripts Active Atenolol 50 Mg Tab 50 Mg PO DAILY 30 Days [place] (Hydrocodone-Acetaminophen) 5-325 mg Tab 1 Tab PO Q6HR PRN Magnesium Oxide 400 Mg Tab 400 Mg PO DAILY K-Phos (Potassium Phosphate Monobasic) 500 Mg Tab 1,000 Mg PO Q12HR Calcium Carbonate (Antacid) 500 Mg Chew 500 Mg CHEW Q12HR Reported Ergocalciferol 50,000 Unit Cap 50,000 Units PO Q7D Metformin (Metformin HCl) 500 Mg Tab 500 Mg PO BIDPC With meals Review of Systems Except as stated in HPI: all other systems reviewed are Neg Physical Exam Narrative GENERAL: 42yo M in mild distress. SKIN: Focused skin assessment warm/dry. HEAD: Atraumatic. Normocephalic. EYES: Right pupil irregular shape and unreactive. Injected conjunctiva in right. Left pupil 3mm reactive to light. EOMI. ENT: No perioorbital ecchymoses. No hemotympanum. NECK: Cervical spine collar in place. CARDIOVASCULAR: Regular rate and rhythm. No murmur appreciated. RESPIRATORY: No accessory muscle use. Clear to auscultation. Breath sounds equal bilaterally. GASTROINTESTINAL: Abdomen soft, mild diffuse ttp. No rebound tenderness or guarding. MUSCULOSKELETAL: No obvious deformities. No clubbing. No cyanosis. No edema. NEUROLOGICAL: Awake and alert. No obvious cranial nerve deficits. Motor grossly within normal limits. Normal speech. AAOx2. PSYCHIATRIC: Appropriate mood and affect; insight and judgment normal. Data Data Last Documented VS Vital Signs Date Time Temp Pulse Resp B/P (MAP) Pulse Ox O2 Delivery O2 Flow Rate FiO2 09/13/17 22:41 120 16 82/57 (65) 100 Room Air 09/13/17 21:[address] Brain W/O Iv Contrast(Rout) (09/13/17 ) Ct Cerv Spine W/O Contrast (09/13/17 ) Ct Abd/Pel W Iv Contrast(Rout) (09/13/17 ) Shoulder, Limited(2vws) (09/13/17 ) Complete Blood Count With Diff (09/13/17 21:59) Basic Metabolic Panel (Bmp) (09/13/17 21:59) Prothrombin Time / Inr (Pt) (09/13/17 21:59) Act Partial Throm Time (Ptt) (09/13/17 21:59) Troponin I (09/13/17 21:59) Sodium Chlor 0.9% 1000 Ml Inj (Ns 1000 M (09/13/17 22:00) Lactic Acid Sepsis Protocol (09/13/17 22:08) Sodium Chlor 0.9% 1000 Ml Inj (Ns 1000 M (09/13/17 23:00) Blood Culture (09/13/17 22:58) Vancomycin Inj (Vancomycin Inj) (09/13/17 23:00) Piperacil-Tazo 3.375 Gm Premix (Zosyn 3. (09/13/17 23:00) Ketorolac Inj (Toradol Inj) (09/13/17 23:30) Urinalysis - C+S If Indicated (09/13/17 23:22) Potassium Chloride (Kcl) (09/13/17 23:30) Insulin Human Regular Inj (Novolin R Inj (09/13/17 23:30) Sodium Chlor 0.9% 1000 Ml Inj (Ns 1000 M (09/13/17 23:30) Resp Blood Gas Venous (09/13/17 ) Ondansetron Inj (Zofran Inj) (09/13/17 23:45) Admit Order (Ed Use Only) (09/13/17 23:35) Potassium Chlor 20 Meq Premix (Kcl 20 Me (09/13/17 23:45) Labs Laboratory Tests Test 09/13/17 22:10 09/13/17 23:35 White Blood Count 13.2 TH/MM3 Red Blood Count 4.24 MIL/MM3 Hemoglobin 12.9 GM/DL Hematocrit 39.8 % Mean Corpuscular Volume 94.0 FL Mean Corpuscular Hemoglobin 30.4 PG Mean Corpuscular Hemoglobin Concent 32.4 % Red Cell Distribution Width 14.6 % Platelet Count 264 TH/MM3 Mean Platelet Volume 9.2 FL Neutrophils (%) (Auto) 75.4 % Lymphocytes (%) (Auto) 21.0 % Monocytes (%) (Auto) 2.1 % Eosinophils (%) (Auto) 0.5 % Basophils (%) (Auto) 1.0 % Neutrophils # (Auto) 9.9 TH/MM3 Lymphocytes # (Auto) 2.8 TH/MM3 Monocytes # (Auto) 0.3 TH/MM3 Eosinophils # (Auto) 0.1 TH/MM3 Basophils # (Auto) 0.1 TH/MM3 CBC Comment DIFF FINAL Differential Comment Prothrombin Time 11.0 SEC Prothromb Time International Ratio 1.0 RATIO Activated Partial Thromboplast Time 23.5 SEC Blood Urea Nitrogen 20 MG/DL Creatinine 1.73 MG/DL Random Glucose 407 MG/DL Calcium Level 9.4 MG/DL Sodium Level 131 MEQ/L Potassium Level 3.7 MEQ/L Chloride Level 94 MEQ/L Carbon Dioxide Level 20.3 MEQ/L Anion Gap 17 MEQ/L Estimat Glomerular Filtration Rate 43 ML/MIN Lactic Acid Level 7.1 mmol/L Troponin I LESS THAN 0.02 NG/ML Blood Gas Puncture Site IV LINE Blood Gas Patient Temperature 98.6 Venous Blood pH 7.25 Venous Blood Partial Pressure CO2 46 mmHg Venous Blood Partial Pressure O2 31 mmHg Venous Blood HCO3 19 mmol/L Venous Blood Oxygen Saturation 43 % Venous Blood Oxygen Content 6.6 Vol % Venous Blood Base Excess -7.0 mmol/L Oxygen Delivery Device ROOM AIR Blood Gas Inspired Oxygen 21 % MDM Medical Decision Making Medical Screen Exam Complete: Yes Emergency Medical Condition: Yes Interpretation(s) EKG: Sinus tachycardia at 120bpm. LAD. ST depression II, III, aVF. LVH. Differential Diagnosis ICH vs. new onset seizure vs. cocaine induced CVA vs. sepsis Narrative Course 42yo M here for evaluation after seizure. Pt's mother came and said she witnessed 2 episodes of seizure today and never had seizure before. Said his right eye has been hurting him and has blurry vision for weeks. Pt is suppose to take insulin for DM but has been noncompliant. Pt was hypotensive and tachycardic and given NS IVF. Pt is complaining of left sided neck pain and has an old humerus fracture on left arm that he did not follow up with. Labs reviewed, leukocytosis at 13.2. Glucose elevated at 407. CO2 is 20.3 so pt is not in DKA. Anion gap is slightly elevated at 17 but pt's lactic acid is elevated at 7.1. K: 3.7, slightly hemolyzed. Will replace PO potassium and give 8 units of regular insulin. Ordered NS IVF x3. Troponin negative. Lactic acid is elevated at 7.1, likely because of the seizure but will empirically cover with broad spectrum antibiotics as well. Pt is AAOx3 and answering questions appropriately. Pt has some mild abdominal tenderness on exam so CT a/p ordered. CT a/p showed no visceral injury. Moderate to large amount of stool. CT cervical spine negative. CT brain negative. Discussed with resident physician Dr. Marina and accepted to their service. Blood pressure improved with NS IVF but pt remains tachycardic. Informed by nurse that pt was given PO potassium but vomited so given zofran and changed to 20mEq KCl IV. Repeat lactic acid improved to 4.0 after 3 liters of NS IVF. Repeat BNP also shows improved glucose to 363 and normal anion gap with CO2 still slightly decreased at 20.9. Critical Care Narrative Aggregate critical care time was 60 minutes. Time to perform other separately billable procedures was not included in the critical care time. My time did not include minutes spent treating any other patients simultaneously or on activities that did not directly contribute to the patient's treatment. The services I provided to this patient were to treat and/or prevent clinically significant deterioration that could result in: cardiovascular collapse or . I provided critical care services requiring my management, as noted below: Chart data review, documentation time, medication orders and management, vital sign assessments/reviewing monitor data, ordering and reviewing lab tests, ordering and interpreting/reviewing x-rays and diagnostic studies, care of the patient and discussion of the patient with the admitting physicians. Diagnosis Primary Impression: New onset seizure Admitting Information Admitting Physician Requests: it Dayana Chapa DO Sep 13, 2017 22:08
--- NOTE | 2017-09-13 22:20 | RADRPT ---
EXAM DATE/TIME: 09/13/2017 21:59 [facility] COMPARISON: CT BRAIN W/O CONTRAST, June 30, 2017, 15:33. INDICATIONS : Seizure, fall. RADIATION DOSE: 38.73 CTDIvol (mGy) MEDICAL HISTORY : Non-responsive. SURGICAL HISTORY : Non-responsive. ENCOUNTER: Initial ACUITY: 1 day PAIN SCALE: Non-responsive LOCATION: cranial TECHNIQUE: Multiple contiguous axial images were obtained of the head. Using automated exposure control and adj ustment of the mA and/or kV according to patient size, radiation dose was kept as low as reasonably a chievable to obtain optimal diagnostic quality images. DICOM format image data is available electro nically for review and comparison. FINDINGS: CEREBRUM: The ventricles are normal for age. No evidence of midline shift, mass lesion, hemorrhage or acute in farction. No extra-axial fluid collections are seen. POSTERIOR FOSSA: The cerebellum and brainstem are intact. The 4th ventricle is midline. The cerebellopontine angle i s unremarkable. EXTRACRANIAL: The visualized portion of the orbits is intact. SKULL: The calvaria is intact. No evidence of skull fracture. CONCLUSION: Negative noncontrast head CT Lewis Alcaraz MD on September 13, 2017 at 22:17 Board Certified Radiologist. This report was verified electronically.
--- NOTE | 2017-09-13 22:25 | RADRPT ---
EXAM DATE/TIME: 09/13/2017 21:59 [facility] COMPARISON: CT CERVICAL SPINE W/O CONTRAST, June 30, 2017, 15:33. INDICATIONS : Trauma, fall. RADIATION DOSE: 16.21 CTDIvol (mGy) MEDICAL HISTORY : Non-responsive. SURGICAL HISTORY : Non-responsive. ENCOUNTER: Initial ACUITY: 1 day PAIN SCALE: Non-responsive LOCATION: neck TECHNIQUE: Volumetric scanning of the cervical spine was performed. Multiplanar reconstructions i n the sagittal, coronal and oblique axial planes were performed. Using automated exposure control a nd adjustment of the mA and/or kV according to patient size, radiation dose was kept as low as reason ably achievable to obtain optimal diagnostic quality images. DICOM format image data is available e lectronically for review and comparison. FINDINGS: The sagittal reconstructions demonstrate normal alignment and normal prevertebral soft tissues. The d ens is intact and there is a normal atlantoaxial relationship. The axial images demonstrate that the vertebral bodies and posterior elements are intact. The soft ti ssues are within normal limits. There is no evidence of acute fracture or malalignment. CONCLUSION: Negative trauma CT. Lewis Alcaraz MD on September 13, 2017 at 22:21 Board Certified Radiologist. This report was verified electronically.
[2017-09-13 22:34] LABS: AUTOMATED NEUTROPHIL # 9.9 TH/MM3 (1.8-7.7); BASOPHIL # 0.1 TH/MM3 (0-0.2); EOSINOPHIL # 0.1 TH/MM3 (0-0.4); EOSINOPHIL % 0.5 % (0.0-4.0); HEMATOCRIT 39.8 % (39.0-51.0); HEMOGLOBIN 12.9 GM/DL (13.0-17.0); LYMPHOCYTE # 2.8 TH/MM3 (1.0-4.8); MEAN CORPUSCULAR HEMOGLOBIN 30.4 PG (27.0-34.0); MEAN CORPUSCULAR HGB CONC 32.4 % (32.0-36.0); MEAN PLATELET VOLUME 9.2 FL (7.0-11.0); MONO % 2.1 % (0.0-8.0); MONOCYTE # 0.3 TH/MM3 (0-0.9); NEUT % 75.4 % (16.0-70.0); PLATELET COUNT 264 TH/MM3 (150-450); RED BLOOD COUNT 4.24 MIL/MM3 (4.50-5.90); RED CELL DISTRIBUTION WIDTH 14.6 % (11.6-17.2); WHITE BLOOD COUNT 13.2 TH/MM3 (4.0-11.0)
--- NOTE | 2017-09-13 22:34 | RADRPT ---
EXAM DATE/TIME: 09/13/2017 22:15 [facility] COMPARISON: SHOULDER LEFT LTD (2VWS), June 30, 2017, 15:23. INDICATIONS : Fall this afternoon. Pain in left shoulder. History of left proximal humeral fracture on 06/30/2017. MEDICAL HISTORY : Diabetes mellitus type 2. Cardiovascular disease Hepatitis C SURGICAL HISTORY : None. ENCOUNTER: Initial ACUITY: 1 day PAIN SCORE: 10/10 LOCATION: Left Shoulder FINDINGS: 2 views of the left shoulder were obtained and again demonstrate a transverse fracture through the le ft humeral neck. There has been resorption of bone surrounding the fracture lines which are ill-defin ed and there is patchy lucency. There is a small amount of patchy ununited callus. Humeral head is ro tated mildly. There is overlying soft tissue swelling and diffuse osteopenia. No acute fracture is id entified. CONCLUSION: Residual fracture deformity through the humeral neck with no definite acute fracture. Lewis Alcaraz MD on September 13, 2017 at 22:30 Board Certified Radiologist. This report was verified electronically.
--- NOTE | 2017-09-13 22:38 | RADRPT ---
EXAM DATE/TIME: 09/13/2017 22:06 [facility] COMPARISON: CT ABDOMEN & PELVIS W CONTRAST, March 04, 2016, 12:20. INDICATIONS : Trauma, fall. IV CONTRAST: 100 cc Omnipaque 350 (iohexol) IV ORAL CONTRAST: No oral contrast ingested. RADIATION DOSE: 8.47 CTDIvol (mGy) MEDICAL HISTORY : Non-responsive. SURGICAL HISTORY : Non-responsive. ENCOUNTER: Initial ACUITY: 1 day PAIN SCALE: Non-responsive LOCATION: abdomen TECHNIQUE: Volumetric scanning of the abdomen and pelvis was performed. Using automated exposure control and ad justment of the mA and/or kV according to patient size, radiation dose was kept as low as reasonably achievable to obtain optimal diagnostic quality images. DICOM format image data is available electro nically for review and comparison. FINDINGS: LOWER LUNGS: The visualized lower lungs are clear. LIVER: Homogeneous density without lesion. There is no dilation of the biliary tree. No calcified gallston es. SPLEEN: Normal size without lesion. PANCREAS: Within normal limits. KIDNEYS: Normal in size and shape. There is no mass, stone or hydronephrosis. ADRENAL GLANDS: Within normal limits. VASCULAR: There is no aortic aneurysm. BOWEL/MESENTERY: There is a large amount of food in the stomach. Multiple loops of small bowel which appear mildly pro minent but not dilated. There are several small air-fluid levels.. There is no free intraperitoneal air or fluid. There is a moderate to large amount of stool in distal colon. ABDOMINAL WALL: Within normal limits. RETROPERITONEUM: There is no lymphadenopathy. BLADDER: No wall thickening or mass. REPRODUCTIVE: Within normal limits. INGUINAL: There is no lymphadenopathy or hernia. MUSCULOSKELETAL: There is osteopenia multiple old healed left rib fractures. There is no definite acute fracture. Post operative changes in the left hip. CONCLUSION: 1. No evidence of acute visceral injury. 2. Loops of nondilated but mildly prominent small bowel which may represent a mild ileus. Moderate to large amount of stool in the distal colon. Lewis Alcaraz MD on September 13, 2017 at 22:33 Board Certified Radiologist. This report was verified electronically.
[2017-09-13 22:41] VITALS: BP 82/57; PULSE 120; RESP 16; O2SAT 100
[2017-09-13 22:52] LABS: LACTIC ACID SEPSIS PROTOCOL 7.1 mmol/L (0.4-2.0)
[2017-09-13 22:53] LABS: BICARBONATE 20.3 MEQ/L (21.0-32.0); BLOOD UREA NITROGEN 20 MG/DL (7-18); CALCIUM 9.4 MG/DL (8.5-10.1); CHLORIDE 94 MEQ/L (98-107); CREATININE 1.73 MG/DL (0.60-1.30); GLOMERULAR FILTRATION RATE 43 ML/MIN (>89); SODIUM (NA) 131 MEQ/L (136-145); TROPONIN I LESS THAN 0.02 NG/ML (0.02-0.05)
[2017-09-13 23:00] LABS: GLUCOSE,RANDOM 407 MG/DL (74-106)
[2017-09-13] MEDS ORDERED: PIPERACIL-TAZO 3.375 GM PREMIX 50 ML IV ONE (23:00)
[2017-09-13] MEDS ORDERED: VANCOMYCIN INJ 1,000 MG in SODIUM CHLOR 0.9% 250 ML INJ 250 ML IV ONE (23:00)
[2017-09-13] MEDS ORDERED: POTASSIUM CHLORIDE 20 MEQ CONTROLLED RELEASE TAB PO ONE (23:30)
[2017-09-13] MEDS ORDERED: INSULIN HUMAN REGULAR 1,000 UNITS/10 ML VIAL SQ ONE (23:30)
[2017-09-13] MEDS ORDERED: KETOROLAC TROMETHAMINE 30 MG/ML (IVP) VIAL IV PUSH ONE (23:30)
[2017-09-13] MEDS ORDERED: POTASSIUM CHLOR 20 MEQ PREMIX 100 ML IV ONE (23:45)
[2017-09-13] MEDS ORDERED: ONDANSETRON HCL 4 MG/2 ML VIAL IV PUSH ONE (23:45)
[2017-09-14] VITALS (20 sets, daily range): BP systolic 110–169; BP diastolic 69–92; PULSE 109–127; RESP 16–32; TEMP 99.4–101.4; O2SAT 96–99
--- NOTE | 2017-09-14 00:19 | HHI.HP ---
HPI Service Family Medicine Primary Care Physician No Primary Care Physician Admission Diagnosis New onset seizure, uncontrolled diabetes Diagnoses: International Travel<30 Days: No Contact w/Intl Traveler<30days: No Known Affected Area: No History of Present Illness Patient is a 42 year old Male with significant PMHx of DM2 with peripheral neuropathy, HTN, GERD, and (CAD and CHF per EMR) who was brought to the ED by EMS after sustaining a fall and possible seizure at home. Pt's mother was the main witness but was not at bedside when this HPI was obtained. Pt is a poor historian. Pt stated he went to use the bathroom at home and fell due to leg weakness. Pt stated he felt like his legs "gave out". Denies feeling lightheaded or dizzy before the fall. Denies LOC or hitting his after the fall. Pt reports he had a similar episode occur to him last time he was hospitalized ( 06/2017). Endorses nausea and vomiting x1 in the ED. Pt reports BL hip pain and Left shoulder pain, describes pain as sharp- stabbing pain and rates pain as 8-9 /10. Pt reports that after the fall he tried crawling to his living rm and the next thing he remembers is EMS in his home. Denies biting his tongue. Endorse stool incontinence. Of note per nurse, pt's mother reported pt had 2 seizure-like episodes with foaming at the mouth and jerking movements. Will need to confirm history of incident with pt's mother. Of note pt use dislocated his Left shoulder in January 2017.Denies recently being sick or any sick contacts. Pt ambulates with walker. Review of Systems ROS Limitations: Poor Historian Constitutional: DENIES: Fever, Weight loss, Chills Eyes: COMPLAINS OF: Blurred vision (Right eye blurry vision on Right eye since 01/2017 ) Ears, nose, mouth, throat: DENIES: Hearing loss, Vertigo, Throat pain Respiratory: DENIES: Cough, Wheezing, Shortness of breath Cardiovascular: COMPLAINS OF: Syncope, DENIES: Chest pain, Palpitations Gastrointestinal: COMPLAINS OF: Diarrhea (since he was in the hospital last 2016, watery once a day ), Vomiting, DENIES: Bloody stools, Difficulty Swallowing Genitourinary: DENIES: Urinary frequency, Dysuria Musculoskeletal: COMPLAINS OF: Joint pain, Back pain, Neck pain (chronic left sided neck pain) Integumentary: COMPLAINS OF: Rash (diaper rash) Neurologic: COMPLAINS OF: Headache (2/10 on left side), Localized weakness (BL leg weakness), Paresthesias (chronic numbness and tingling Lower Ext BL), Seizures Past Family Social History Past Medical History Type 2 diabetes Hypertension History failure to thrive Hypercholesterolemia Fibromyalgia GERD Kidney stones Pt denies PMHx of the following conditions below but conditions present on review of pt's medical record Arthritis- Coronary artery disease- Congestive heart failure, unknown type- Gout- Hepatitis- History of pancreatitis- Past Surgical History Left hip replacement secondary to a fall, 15yrs ago Right nephrolithotripsy with J-tube placement Left hip surgery, 15yrs Vasectomy, 20yrs Pt denies PSHx of following surgeries below but surgeries hx present on review of pt's medical record Cholecystectomy- Previous PEG tube placement- Allergies: Coded Allergies: *MDRO Multi-Drug Resistant Organism (Verified Adverse Reaction, Unknown, MRSA, 09/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) MRSA PCR screen POSITIVE - 11/28/16 Family History Parents and siblings have history of coronary artery disease Father- diabetes Social History Pt currently lives with mother who is helping with his care -Alcohol, rarely -Denies smoking -Endorses cocaine use, last used few wks ago ( snorted 1 full line of cocaine), prior to this he snorted 1 full line of cocaine 6 month ago Physical Exam Vital Signs Vital Signs Date Time Temp Pulse Resp B/P (MAP) Pulse Ox O2 Delivery O2 Flow Rate FiO2 09/14/17 00:17 127 16 133/69 (90) 98 Room Air 09/13/17 22:41 120 16 82/57 (65) 100 Room Air 09/13/17 21:34 97.6 119 10 81/51 (61) 99 Physical Exam GENERAL: This is a thin cachetic patient in no apparent distress. SKIN: Longitudinal cut noted along Right lateral forearm. Erythema noted around collar bone area. No rashes. Cool and dry. HEAD: Atraumatic. Normocephalic. No temporal or scalp tenderness. EYES: Right pupil enlarged compared to Left, not reactive to light, no consensual pupillary response noted on Left eye. Right eye scleral injection. Left pupil is reactive to light, no consensual response noted on Right eye. Extraocular motions intact. No scleral icterus. No drainage. ENT: Nose without bleeding, purulent drainage or septal hematoma. Throat without erythema, tonsillar hypertrophy or exudate. Uvula midline. Airway patent. NECK: Trachea midline. No JVD or lymphadenopathy. Supple, nontender, no meningeal signs. Limited range of motion to left side of neck due to pain. CARDIOVASCULAR: Tachycardic. Normal S1 and S2. Regular rate and rhythm without murmurs, gallops, or rubs. RESPIRATORY: Clear to auscultation. Breath sounds equal bilaterally. No wheezes , rales, or rhonchi. GASTROINTESTINAL: Abdomen soft, non-tender, nondistended. No hepato-splenomegaly , or palpable masses. No guarding. MUSCULOSKELETAL: Extremities without clubbing, cyanosis, or edema. Left shoulder tenderness. No effusion, or edema noted. No calf tenderness. Negative Homans sign bilaterally. NEUROLOGICAL: Awake and alert. Cranial nerves II through XII intact. Motor and sensory grossly within normal limits. Five out of 4/5 muscle strength in all muscle groups. Limited range of motion of left are due to Left shoulder pain ( however pt noted to move Left arm without pain during eye pressure evaluation by ED physician). Normal speech. Pt ambulates with walker. Laboratory Laboratory Tests Test 09/13/17 22:10 09/13/17 23:35 White Blood Count 13.2 Red Blood Count 4.24 Hemoglobin 12.9 Hematocrit 39.8 Mean Corpuscular Volume 94.0 Mean Corpuscular Hemoglobin 30.4 Mean Corpuscular Hemoglobin Concent 32.4 Red Cell Distribution Width 14.6 Platelet Count 264 Mean Platelet Volume 9.2 Neutrophils (%) (Auto) 75.4 Lymphocytes (%) (Auto) 21.0 Monocytes (%) (Auto) 2.1 Eosinophils (%) (Auto) 0.5 Basophils (%) (Auto) 1.0 Neutrophils # (Auto) 9.9 Lymphocytes # (Auto) 2.8 Monocytes # (Auto) 0.3 Eosinophils # (Auto) 0.1 Basophils # (Auto) 0.1 CBC Comment DIFF FINAL Differential Comment Prothrombin Time 11.0 Prothromb Time International Ratio 1.0 Activated Partial Thromboplast Time 23.5 Blood Urea Nitrogen 20 Creatinine 1.73 Random Glucose 407 Calcium Level 9.4 Sodium Level 131 Potassium Level 3.7 Chloride Level 94 Carbon Dioxide Level 20.3 Anion Gap 17 Estimat Glomerular Filtration Rate 43 Lactic Acid Level 7.1 Troponin I LESS THAN 0.02 Blood Gas Puncture Site IV LINE Blood Gas Patient Temperature 98.6 Venous Blood pH 7.25 Venous Blood Partial Pressure CO2 46 Venous Blood Partial Pressure O2 31 Venous Blood HCO3 19 Venous Blood Oxygen Saturation 43 Venous Blood Oxygen Content 6.6 Venous Blood Base Excess -7.0 Oxygen Delivery Device ROOM AIR Blood Gas Inspired Oxygen 21 Date/Time Source Procedure Growth Status 09/13/17 23:07 Blood Peripheral Aerobic Blood Culture Pending Received 09/13/17 23:07 Blood Peripheral Anaerobic Blood Culture Pending Received Result Diagram: 09/13/170 09/13/17 221 Imaging Last 48 hours Impressions Shoulder X-Ray 09/13/17 0000 Signed Impressions: Service Date/Time: September 22:15 - CONCLUSION: Residual fracture deformity through the humeral neck with no definite acute fracture. Lewis Alcaraz MD Head CT 09/13/17 0000 Signed Impressions: Service Date/Time: September 21:59 - CONCLUSION: Negative noncontrast head CT Lewis Alcaraz MD Cervical Spine CT 09/13/17 0000 Signed Impressions: Service Date/Time: September 21:59 - CONCLUSION: Negative trauma CT. Lewis Alcaraz MD Abdomen/Pelvis CT 09/13/17 0000 Signed Impressions: Service Date/Time: September 22:06 - CONCLUSION: 1. No evidence of acute visceral injury. 2. Loops of nondilated but mildly prominent small bowel which may represent a mild ileus. Moderate to large amount of stool in the distal colon. Lewis Alcaraz MD Septic Shock Reassessment Heart: Regular rate and rhythm Lungs: Clear Skin: Warm, Dry Peripheral Pulses: Bounding Right Radial Bounding Left Radial Bounding Right Dorsalis Pedis Bounding Left Dorsalis Pedis Bounding Right Posterior Tibial Bounding Left Posterior Tibial Capillary Refill: <2 seconds Caprini VTE Risk Assessment Caprini VTE Risk Assessment: Mod/High Risk (score >= 2) Caprini Risk Assessment Model Point Value = 1 Point Value = 2 Point Value = 3 Point Value = 5 Age 41-60 Minor surgery BMI > 25 kg/m2 Swollen legs Varicose veins or History of unexplained or recurrent spontaneous Oral contraceptives or hormone replacement Sepsis (< 1 month) Serious lung disease, including pneumonia (< 1 month) Abnormal pulmonary function Acute myocardial infarction Congestive heart failure (< 1 month) History of inflammatory bowel disease Medical patient at bed rest Age 61-74 Arthroscopic surgery Major open surgery (> 45 min) Laparoscopic surgery (> 45 min) Malignancy Confined to bed (> 72 hours) Immobilizing plaster cast Central venous access Age >= 75 History of VTE Family history of VTE Factor V Leiden Prothrombin [id number] Lupus anticoagulant Anticardiolipin antibodies Elevated serum homocysteine Heparin-induced thrombocytopenia Other congenital or acquired thrombophilia Stroke (< 1 month) Elective arthroplasty Hip, pelvis, or leg fracture Acute spinal cord injury (< 1 month) Prophylaxis Regimen Total Risk Factor Score Risk Level Prophylaxis Regimen 0-1 Low Early ambulation 2 Moderate Order ONE of the following: *Sequential Compression Device (SCD) *Heparin 5000 units SQ BID 3-4 Higher Order ONE of the following medications: *Heparin 5000 units SQ TID *Enoxaparin/Lovenox 40 mg SQ daily (WT < 150 kg, CrCl > 30 mL/min) *Enoxaparin/Lovenox 30 mg SQ daily (WT < 150 kg, CrCl > 10-29 mL/min) *Enoxaparin/Lovenox 30 mg SQ BID (WT < 150 kg, CrCl > 30 mL/min) AND/OR *Sequential Compression Device (SCD) 5 or more Highest Order ONE of the following medications: *Heparin 5000 units SQ TID (Preferred with Epidurals) *Enoxaparin/Lovenox 40 mg SQ daily (WT < 150 kg, CrCl > 30 mL/min) *Enoxaparin/Lovenox 30 mg SQ daily (WT < 150 kg, CrCl > 10-29 mL/min) *Enoxaparin/Lovenox 30 mg SQ BID (WT < 150 kg, CrCl > 30 mL/min) AND *Sequential Compression Device (SCD) Assessment and Plan Assessment and Plan Patient is a 42 year old Male with significant PMHx of DM2 with peripheral neuropathy, HTN, GERD, and (CAD and CHF per EMR) who was brought to the ED by EMS after sustaining a fall and possible seizure at home. On admission pt found to meet sepsis criteria HR-119, WBC-13.2, Lactic acid- 3.5, BP- 81/51 with suspected bacteremia of unknown infection source. Pt admitted for further workup of seizure and sepsis management. Code Status Full code Discussed Condition With Dr. Nancy Marina Problem List: (1) Seizure ICD Codes: R56.9 - Unspecified convulsions Plan: -Normal Head CT -Abdomen/pelvis CT: No evidence of acute visceral injury. Loops of nondilated but mildly prominent small bowel which may represent a mild ileus. Moderate to large amount of stool in the distal colon. -neurology consulted -f/u EEG, MRI, urine drug screen -c/w neuro checks Q4h -Pt placed on cardiac monitoring -will attempt obtain history of fall vs seizure from his mother who was there during the incident (2) Sepsis ICD Codes: A41.9 - Sepsis, unspecified organism Status: Acute Plan: On admission pt found to meet sepsis criteria HR-119, WBC-13.2, Lactic acid- 3.5, BP- 81/51 with suspected bacteremia of unknown infection source. -c/w IVF -c/w zosyn and vanc for presumptive sepsis bacteremia, broad spectrum coverage (3) CAD (coronary artery disease) ICD Codes: I25.10 - Atherosclerotic heart disease of [place] coronary artery without angina pectoris Plan: unsure about CAD hx per pt, CAD noted as medical problem hospital records -Pt placed on cardiac monitoring -Pt denies CP -f/u troponin, cardiac enzymes (4) CHF (congestive heart failure) ICD Codes: I50.9 - Heart failure, unspecified Plan: unsure about CHF hx per pt, CHF noted as medical problem hospital records -f/u bnp -Pt placed on cardiac monitoring (5) Diabetes ICD Codes: E11.9 - Type 2 diabetes mellitus without complications Status: Chronic Plan: pt was found to be hyperglycemic 400s in cmp, received 8 units of insulin in the ED -A1C in Jun was 10 suggesting poor glycemic control, will repeat today to trend -pt does not take diabetic medication at home due to lack of insurance coverage for medications -pt placed on low dose SSI (6) Frailty ICD Codes: R54 - Age-related physical debility Plan: -Physical therapy order placed -Seizure precautions -Bed rest until cleared -Case management order placed. Pt may need SNF placement (7) Anisocoria ICD Codes: H57.02 - Anisocoria Plan: Tonopen appx pressure of 20mmHg in R eye, taken by ED physician -consider further workup or ophthalmology consult -MRI as above -Chronic issue began January 2017 (8) Pain ICD Codes: R52 - Pain, unspecified Plan: Hx of chronic pain pt on [place] (9) Nutrition, metabolism, and development symptoms ICD Codes: R63.8 - Other symptoms and signs concerning food and fluid intake Plan: Fluids: 100mls/hr Electrolyte: hypoK, replete as needed Nutrition:NPO, speech evaluation pending DVT ppx: SCDs, lovenox Physician Certification 2 Midnight Certification Type: Admission for Inpatient Services Order for Inpatient Services The services are ordered in accordance with Medicare regulations or non- Medicare payer requirements, as applicable. In the case of services not specified as inpatient-only, they are appropriately provided as inpatient services in accordance with the 2-midnight benchmark. Estimated LOS (days): 3 days is the estimated time the patient will need to remain in the hospital, assuming treatment plan goals are met and no additional complications. Post-Hospital Plan: Not yet determined Min Marquez MD, R1 Sep 14, 2017 00:19
[2017-09-14] MEDS ORDERED: MAGNESIUM HYDROXIDE SUSP 30 ML CUP PO PRN (00:45)
[2017-09-14] MEDS ORDERED: LACTULOSE SYRUP 20 GM/30 ML CUP PO PRN (00:45)
[2017-09-14] MEDS ORDERED: BISACODYL 10 MG SUPP RECTAL PRN (00:45)
[2017-09-14] MEDS ORDERED: NALOXONE HCL 0.4 MG/ML AMP IV PUSH PRN ×2 (00:45)
[2017-09-14] MEDS ORDERED: SENNOSIDES 8.6 MG TAB PO PRN (00:45)
[2017-09-14] MEDS ORDERED: SODIUM CHLORIDE 0.9% FLUSH 10 ML FLUSH IV FLUSH PRN (00:45)
[2017-09-14] MEDS ORDERED: cloNIDine HCL 0.1 MG TAB PO PRN ×3 (01:00→17:45)
[2017-09-14] MEDS ORDERED: VANCOMYCIN INJ 1,000 MG in SODIUM CHLOR 0.9% 250 ML INJ 250 ML IV SCH (01:00)
[2017-09-14] MEDS ORDERED: MORPHINE SULFATE 2 MG/ML INJ IV PRN (01:00)
[2017-09-14] MEDS ORDERED: Vancomycin Consult Pharmacy 1 EA OTHER SCH (01:00)
[2017-09-14] MEDS ORDERED: LORazepam 2 MG/ML VIAL IV PUSH PRN (01:00)
[2017-09-14 01:01] LABS: BICARBONATE 20.9 MEQ/L (21.0-32.0); CALCIUM 7.8 MG/DL (8.5-10.1); CREATININE 1.55 MG/DL (0.60-1.30)
[2017-09-14 01:14] LABS: MAGNESIUM 1.4 MG/DL (1.5-2.5)
[2017-09-14] MEDS: SODIUM CHLOR 0.9% 1000 ML INJ 1,000 ML IV SCH ×3 (01:16→21:49)
[2017-09-14] MEDS ORDERED: VANCOMYCIN 500 MG/NS 100 ML IV ONE ×2 (01:30)
[2017-09-14 01:50] LABS: BILIRUBIN, URINE NEG (NEG); BLOOD, URINE SMALL (NEG); GLUCOSE,URINE 1000 mg/dL (NEG); KETONE, URINE NEG (NEG); NITRITE,URINE NEG (NEG); PH, URINE 5.5 (5.0-8.5); SQUAMOUS EPITHELIAL CELL URINE <1 /hpf (0-5); URINE COLOR YELLOW (YELLW/STRAW); URINE LEUKOCYTE ESTERASE NEG (NEG)
[2017-09-14] MEDS ORDERED: METOPROLOL TARTRATE 5 MG/5 ML VIAL IV PUSH PRN (02:30)
[2017-09-14 05:12] LABS: TROPONIN I 5.25 NG/ML (0.02-0.05)
[2017-09-14] MEDS ORDERED: HEPARIN SODIUM - IV 10,000 UNITS/10 ML VIAL IV PUSH ONE (05:30)
[2017-09-14] MEDS: PIPERACIL-TAZO 3.375 GM PREMIX 50 ML IV SCH ×3 (06:57→16:53)
[2017-09-14 07:02] LABS: HEMOGLOBIN 11.6 GM/DL (13.0-17.0); MEAN CORPUSCULAR HEMOGLOBIN 30.4 PG (27.0-34.0); MEAN PLATELET VOLUME 8.5 FL (7.0-11.0); PLATELET COUNT 216 TH/MM3 (150-450); RED BLOOD COUNT 3.81 MIL/MM3 (4.50-5.90); RED CELL DISTRIBUTION WIDTH 14.9 % (11.6-17.2)
[2017-09-14 07:11] LABS: PROTHROMBIN TIME - PATIENT 10.7 SEC (9.8-11.6)
[2017-09-14] MEDS: HEPARIN-D5W 25,000 U/250 ML 250 ML IV PRN (07:33)
[2017-09-14] MEDS: INSULIN ASPART SUPPLEMENTAL SCALE SQ SCH ×4 (08:36→20:54)
[2017-09-14] MEDS: ACETAMINOPHEN 325 MG TAB PO PRN ×2 (08:36→21:52)
[2017-09-14] MEDS: DOCUSATE SODIUM 50 MG/SENNA 8.6 MG TAB PO SCH ×2 (08:37→20:54)
[2017-09-14] MEDS: SODIUM CHLORIDE 0.9% FLUSH 10 ML FLUSH IV FLUSH SCH ×2 (08:37→20:54)
[2017-09-14] MEDS ORDERED: SODIUM CHLORIDE 0.9% FLUSH 10 ML FLUSH IV FLUSH SCH (09:00)
[2017-09-14] MEDS ORDERED: ENOXAPARIN SODIUM 40 MG/0.4 ML SYRINGE SQ SCH (09:00)
--- NOTE | 2017-09-14 09:19 | EKG ---
Date Performed: 09/13/2017 Time Performed: 21:47:58 PTAGE: 42 years EKG: SINUS TACHYCARDIA PATTERN CONSISTENT WITH PULMONARY DISEASE LEFT ANTERIOR FASCICULAR BLOCK VOLTAGE CRITERIA FOR LVH NONSPECIFIC ST & T-WAVE ABNORMALITY ABNORMAL ECG Compared to prior tracing n o significant change PREVIOUS TRACING : 06/30/2017 14.51 DOCTOR: Pankaj Marsh Interpretating Date/Time 09/14/2017 09:18:11
--- NOTE | 2017-09-14 09:20 | EKG ---
Date Performed: 09/14/2017 Time Performed: 04:22:05 PTAGE: 42 years EKG: SINUS TACHYCARDIA PATTERN CONSISTENT WITH PULMONARY DISEASE LEFT ANTERIOR FASCICULAR BLOCK MODERATE VOLTAGE CRITERIA FOR LVH, CONSIDER NORMAL VARIANT POSSIBLE SEPTAL MYOCARDIAL INFARCTION ABNO RMAL ECG Compared to prior tracing no significant change PREVIOUS TRACING : 09/13/2017 21.47 DOCTOR: Pankaj Marsh Interpretating Date/Time 09/14/2017 09:18:19
--- NOTE | 2017-09-14 11:42 | MG ---
cc: DANA DE LA VEGA MD Lab No: 17- Date: 09/14/2017 Age: 42 Sex: M Race: __ DATE OF [address] Marina MEDICAL HISTORY 1. History of diabetes 2. peripheral neuropathy 3. coronary artery disease 4. congestive heart failure 5. fibromyalgia 6. arthritis 7. depression 8. Hypercholesterolemia 9. chest pain 10. congestive heart failure 11. Hep C 12. Alcohol and substance use 13. Dizziness, weakness, snoring Admitted for witnessed generalized tonic-clonic seizure fell on the floor for 30 seconds. No medication given. Left shoulder and neck pain, blurry vision right eye. The patient has dilated and reactive pupil on the right eye, occasional cocaine use. MEDICATIONS 1. Piperacillin 2. Heparin 3. Lopressor 4. Vancomycin DESCRIPTION The background activity is 5-6 Hz theta superimposed by excess beta activity. The EEG recording is contaminated with muscle and movement artifact. Hyperventilation was not done. Photic stimulation did not elicit a driving response. There was electrode interference pattern excellent at times. There were no electrographic seizures or epileptiform discharges noted during the recording. INTERPRETATION This is an awake EEG. Excess beta activity is a nonspecific finding that may be related to medications like benzos or barbiturates. Absence of electrographic seizures or epileptiform discharges does not rule out the diagnosis of epilepsy. Clinical correlation is recommended. MD SHABANA Davis/DJL /11:25 AM /11:36 AM [facility]RIC CENTERJulius
[2017-09-14] MEDS: MORPHINE SULFATE 4 MG/ML INJ IV PUSH PRN ×3 (12:00→20:53)
--- NOTE | 2017-09-14 12:15 | EKG ---
Date Performed: 09/14/2017 Time Performed: 06:58:07 PTAGE: 42 years EKG: SINUS TACHYCARDIA PATTERN CONSISTENT WITH PULMONARY DISEASE LEFT ANTERIOR FASCICULAR BLOCK MODERATE VOLTAGE CRITERIA FOR LVH, CONSIDER NORMAL VARIANT NONSPECIFIC T-WAVE ABNORMALITY Compared to previous tracing R wave progression has improved likely due to lead placement differences ABNORMAL E CG PREVIOUS TRACING : 09/14/2017 04.22 DOCTOR: Pankaj Marsh Interpretating Date/Time 09/14/2017 12:14:50
--- NOTE | 2017-09-14 13:12 | MB ---
cc: MICHAEL SMITH DO DATE OF CONSULTATION 09/14/2017 REASON FOR CONSULTATION NSTEMI HISTORY OF PRESENT ILLNESS Dalton Arce is a 42-year-old male who presented to [facility] on September 13, 2017 due to fall and possible seizure. Apparently the patient was trying to get up to use the bathroom at home and fell due to leg weakness. He felt that his legs just gave out from. Apparently his mother said that he had two possible seizure-like episodes with foaming at the mouth and jerking movements while on the ground. The patient is not quite sure what exactly happened. He states that he has no chest pain and has had chronic shortness of breath. In seeing him today, he is currently resting comfortably in the bed without complaints. PAST MEDICAL HISTORY 1. Type 2 diabetes mellitus 2. Hypertension 3. History of failure to thrive. 4. Hypercholesterolemia 5. Fibromyalgia 6. Gastroesophageal reflux disease 7. Kidney stones PAST SURGICAL HISTORY 1. Left hip replacement secondary to a fall (15 years ago) 2. Right nephrolithotripsy with J-tube placement. 3. Vasectomy (around 20 years ago) ALLERGIES NO KNOWN DRUG ALLERGIES. MEDICATIONS 1. Atenolol 50 mg daily 2. Angora 5/325 every six hours as needed for pain. 3. Potassium phosphate 1000 mg every 12 hours. 4. Magnesium oxide 400 mg daily 5. Metformin 500 mg b.i.d. FAMILY HISTORY Denies sudden cardiac within the family. SOCIAL HISTORY The patient currently lives with his mother who is helping with his care. He denies smoking. He rarely drinks alcohol. He originally tells me that he does not use cocaine, but when told that he was positive for cocaine, he says that he used it a few weeks ago to try to get more energy. He told me once again that he uses it rarely and when I told him that he has had positive cocaine every time he has been in the hospital, he endorses that he uses it somewhat more than that. REVIEW OF SYSTEMS 14-systems were reviewed including osteopathic pertinent positives and negatives as above otherwise negative. PHYSICAL EXAMINATION VITAL SIGNS: Temperature 99.6, heart rate 117, blood pressure 131/83, respirations 20, pulse ox 98% on room air. GENERAL: The patient is a thin cachectic man in no acute distress. HEAD, EYES, EARS, NOSE, AND THROAT: Extraocular muscles intact. Mucous membranes moist. NECK: The neck is supple with no JVD noted. Carotid upstroke is brisk in nature. HEART: Regular, but tachycardiac. Positive first and second heart sounds. LUNGS: Relatively clear bilaterally. No wheezes, rales or rhonchi. ABDOMEN: Soft, nontender and nondistended. No organomegaly noted. EXTREMITIES: Show no clubbing, cyanosis or edema. Femoral and distal pulses intact bilaterally. NEUROLOGIC: No focal deficits. SKIN: Warm, dry and intact. OSTEOPATHIC: Mild lordosis. No kyphoscoliosis or paraspinal tender points. LABORATORY FINDINGS Hemoglobin 11.6, hematocrit 35.0, platelets 216. Potassium 4.2, BUN 21, creatinine 1.55, lactic acid 7.1, troponin 5.25 decreasing to 3.98. BNP 43. Electrocardiogram (September 14, 2017 at 0422) sinus tachycardia, left anterior fascicular block, LVH. IMPRESSIONS 1. Seizure-like activity 2. Questionable history of coronary artery disease. 3. NSTEMI possible type 2 4. Diabetes mellitus 5. Frailty 6. Lactic acidosis 7. History of failure to thrive. 8. Cocaine abuse RECOMMENDATIONS 1. Mr. Arce presented with seizure-like activity and has an elevated lactic acid and also troponin. 2. Troponin appears to be dropping off somewhat fast, but cannot rule out type 1 in nature at this time. 3. It is possible that he could have coronary spasm and at a higher risk for accelerated atherosclerosis due to his cocaine abuse. 4. Discussed with the primary team and agree with ruling out pulmonary embolus as a possible cause. 5. We will further discuss with him about ischemic evaluation if negative for pulmonary embolus. My overall concern is his frailty, continued cocaine abuse and question of compliance with medications. 6. We will check a 2-D echo to look at his overall left ventricular function, cardiac structure and possible valvopathies. 7. Further recommendations will be made based on the hospital course. Thank you for allowing me to see Dalton Arce. If there are any questions, please do not hesitate to call. Michael Smith DO VGP/DJL /11:25 AM /12:57 PM
--- NOTE | 2017-09-14 14:00 | RADRPT ---
EXAM DATE/TIME: 09/14/2017 13:44 [facility] COMPARISON: SHOULDER LEFT LTD (2VWS), June 30, 2017, 15:23. CHEST SINGLE AP, June 30, 2017, 15:26. INDICATIONS : Short of breath. MEDICAL HISTORY : Diabetes mellitus type 2. Cardiovascular disease. Hepatitis C SURGICAL HISTORY : None. ENCOUNTER: Initial ACUITY: 1 day PAIN SCORE: 0/10 LOCATION: Bilateral chest FINDINGS: A single view of the chest demonstrates the lungs to be symmetrically aerated without evidence of mas s, infiltrate or effusion. The cardiomediastinal contours are unremarkable. Osseous structures are intact. There is an old fracture involving the left proximal humerus. CONCLUSION: No acute disease. Devyn Gonzalez MD on September 14, 2017 at 13:57 Board Certified Radiologist. This report was verified electronically.
--- NOTE | 2017-09-14 14:01 | RADRPT ---
EXAM DATE/TIME: 09/14/2017 12:36 [facility] COMPARISON: No previous studies available for comparison. INDICATIONS : Dyspnea. DOSE: 8.7 Tc99m MAA IV 0.9 mCi Tc99m DTPA aerosol MEDICAL HISTORY : Diabetes mellitus type 2. Hypertension. Congestive heart failure. Polysubstance abuse. SURGICAL HISTORY : Left hip. ENCOUNTER: Initial ACUITY: 1 day PAIN SCALE: 0/10 LOCATION: chest TECHNIQUE: Following five minutes of tidal breathing of DTPA aerosol, planar images of the lungs were performed in eight projections. The patient was then injected with MAA, and eight-view perfusion scan was perf ormed. FINDINGS: There is a homogeneous pattern of aerosol delivery to the periphery of both lungs. No focal ventilat ory defects are seen. The perfusion lung scan demonstrates a homogenous pattern of uptake in both lungs. No segmental or s ubsegmental defects are seen. CONCLUSION: Low probability for pulmonary emboli. Ganesh Jaquez MD FACR on September 14, 2017 at 13:58 Board Certified Radiologist. This report was verified electronically.
--- NOTE | 2017-09-14 14:09 | HHI.FPPN ---
Subjective Remarks 42-year-old male with known diabetes, diabetic neuropathy, hypertension, GERD, CAD and possible CHF. He was at home, trying to ambulate to the bathroom with his walker. He fell and apparently mother reported some twitching and jerking and seizure-like activity. He reported that his legs just gave out. He denied having loss of consciousness, was not dizzy, and had no head injury. He crawled to the next room, and again apparently per mom he had additional seizure-like activity. He was brought to the emergency department via [facility]. He did vomit 1 in the emergency department and complained of bilateral hip pain. Patient chronically wears a brief as he has had some frequent stool incontinence. He had a nuclear stress test in June 2017 which was negative at that time. He reports that he has had blurry vision since January 2017 at which time he was noted to have the right pupil larger than the left with the right pupil being nonreactive. He does admit to snorting cocaine. Reports that his last time to do this was 10-14 days ago. Please see history and physical examination for additional historical details. This morning, patient complains of pain in his left shoulder which is chronic, and pain in both hips which is also chronic. He denies chest pain or shortness of breath, no abdominal pain, no fever or chills. Objective Vitals Vital Signs Date Time Temp Pulse Resp B/P (MAP) Pulse Ox O2 Delivery O2 Flow Rate FiO2 09/14/17 13:00 109 19 96 09/14/17 13:00 109 09/14/17 12:05 16 09/14/17 12:00 119 09/14/17 12:00 101.4 119 32 133/86 (102) 97 09/14/17 11:00 109 09/14/17 11:00 109 21 112/69 (83) 97 09/14/17 10:00 113 09/14/17 10:00 113 21 126/80 (95) 97 09/14/17 09:20 97 09/14/17 09:00 123 18 146/92 (110) 97 09/14/17 09:00 123 09/14/17 08:00 109 09/14/17 08:00 101.4 109 21 110/74 (86) 96 09/14/17 07:00 113 09/14/17 06:03 99.6 117 20 131/83 (99) 98 09/14/17 06:00 118 09/14/17 05:57 114 18 131/70 (90) 92 09/14/17 02:34 111 16 152/84 (106) 99 Room Air 09/14/17 02:00 126 18 169/90 (116) 98 Room Air 09/14/17 00:17 127 16 133/69 (90) 98 Room Air 09/13/17 22:41 120 16 82/57 (65) 100 Room Air 09/13/17 21:34 97.6 119 10 81/51 (61) 99 I/O 09/13/17 09/13/17 09/13/17 09/14/17 09/14/17 09/14/17 07:00 15:00 23:00 07:00 15:00 23:00 Intake Total 3460 ml Output Total 0 ml Balance 3460 ml Intake Oral 0 ml IV Total 3460 ml Output Urine Total 0 ml # Bowel Movements 1 Result Diagram: 09/14/17 0632 09/14/17 0038 Other Results Laboratory Tests Test 09/13/17 22:10 09/13/17 23:35 09/14/17 00:38 09/14/17 01:35 White Blood Count 13.2 TH/MM3 Red Blood Count 4.24 MIL/MM3 Hemoglobin 12.9 GM/DL Hematocrit 39.8 % Mean Corpuscular Volume 94.0 FL Mean Corpuscular Hemoglobin 30.4 PG Mean Corpuscular Hemoglobin Concent 32.4 % Red Cell Distribution Width 14.6 % Platelet Count 264 TH/MM3 Mean Platelet Volume 9.2 FL Neutrophils (%) (Auto) 75.4 % Lymphocytes (%) (Auto) 21.0 % Monocytes (%) (Auto) 2.1 % Eosinophils (%) (Auto) 0.5 % Basophils (%) (Auto) 1.0 % Neutrophils # (Auto) 9.9 TH/MM3 Lymphocytes # (Auto) 2.8 TH/MM3 Monocytes # (Auto) 0.3 TH/MM3 Eosinophils # (Auto) 0.1 TH/MM3 Basophils # (Auto) 0.1 TH/MM3 CBC Comment DIFF FINAL Differential Comment Prothrombin Time 11.0 SEC Prothromb Time International Ratio 1.0 RATIO Activated Partial Thromboplast Time 23.5 SEC Blood Urea Nitrogen 20 MG/DL 21 MG/DL Creatinine 1.73 MG/DL 1.55 MG/DL Random Glucose 407 MG/DL 363 MG/DL Calcium Level 9.4 MG/DL 7.8 MG/DL Sodium Level 131 MEQ/L 135 MEQ/L Potassium Level 3.7 MEQ/L 4.2 MEQ/L Chloride Level 94 MEQ/L 101 MEQ/L Carbon Dioxide Level 20.3 MEQ/L 20.9 MEQ/L Anion Gap 17 MEQ/L 13 MEQ/L Estimat Glomerular Filtration Rate 43 ML/MIN 49 ML/MIN Lactic Acid Level 7.1 mmol/L 4.0 mmol/L Troponin I LESS THAN 0.02 NG/ML Blood Gas Puncture Site IV LINE Blood Gas Patient Temperature 98.6 Venous Blood pH 7.25 Venous Blood Partial Pressure CO2 46 mmHg Venous Blood Partial Pressure O2 31 mmHg Venous Blood HCO3 19 mmol/L Venous Blood Oxygen Saturation 43 % Venous Blood Oxygen Content 6.6 Vol % Venous Blood Base Excess -7.0 mmol/L Oxygen Delivery Device ROOM AIR Blood Gas Inspired Oxygen 21 % Magnesium Level 1.4 MG/DL Ethyl Alcohol Level LESS THAN 3 MG/DL Urine Color YELLOW Urine Turbidity CLEAR Urine pH 5.5 Urine Specific [place] 1.041 Urine Protein 30 mg/dL Urine Glucose (UA) 1000 mg/dL Urine Ketones NEG mg/dL Urine Occult Blood SMALL Urine Nitrite NEG Urine Bilirubin NEG Urine Urobilinogen LESS THAN 2.0 MG/DL Urine Leukocyte Esterase NEG Urine RBC LESS THAN 1 /hpf Urine WBC 2 /hpf Urine Squamous Epithelial Cells <1 /hpf Microscopic Urinalysis Comment CULT NOT INDICATED Urine Opiates Screen NEG Urine Barbiturates Screen NEG Urine Amphetamines Screen NEG Urine Benzodiazepines Screen NEG Urine Cocaine Screen POS Urine Cannabinoids Screen NEG Test 09/14/17 02:55 09/14/17 04:24 09/14/17 04:54 09/14/17 06:32 Lactic Acid Level 3.5 mmol/L Total Creatine Kinase 297 U/L Troponin I 5.25 NG/ML B-Type Natriuretic Peptide 43 PG/ML White Blood Count 12.0 TH/MM3 Red Blood Count 3.81 MIL/MM3 Hemoglobin 11.6 GM/DL Hematocrit 35.0 % Mean Corpuscular Volume 92.0 FL Mean Corpuscular Hemoglobin 30.4 PG Mean Corpuscular Hemoglobin Concent 33.0 % Red Cell Distribution Width 14.9 % Platelet Count 216 TH/MM3 Mean Platelet Volume 8.5 FL Prothrombin Time 10.7 SEC Prothromb Time International Ratio 1.0 RATIO Activated Partial Thromboplast Time 25.7 SEC Test 09/14/17 10:10 Troponin I 3.89 NG/ML Imaging Last Impressions Shoulder X-Ray 09/13/17 0000 Signed Impressions: Service Date/Time: September 22:15 - CONCLUSION: Residual fracture deformity through the humeral neck with no definite acute fracture. Lewis Alcaraz MD Head CT 09/13/17 0000 Signed Impressions: Service Date/Time: September 21:59 - CONCLUSION: Negative noncontrast head CT Lewis Alcaraz MD Cervical Spine CT 09/13/17 0000 Signed Impressions: Service Date/Time: September 21:59 - CONCLUSION: Negative trauma CT. Lewis Alcaraz MD Abdomen/Pelvis CT 09/13/17 0000 Signed Impressions: Service Date/Time: September 22:06 - CONCLUSION: 1. No evidence of acute visceral injury. 2. Loops of nondilated but mildly prominent small bowel which may represent a mild ileus. Moderate to large amount of stool in the distal colon. Lewis Alcaraz MD Objective Remarks O. CONSTITUTIONAL/GEN: Poorly nourished, in mild distress complaining of left shoulder and bilateral hip pain. EYES: The right bulbar conjunctiva is injected, right pupil is nonreactive and larger than the left. ENT: Mouth and pharynx normal. NECK: Supple LUNGS: clear A-P, respiratory effort is minimal. CARDIOVASCULAR: Tachycardic without murmur or gallop. No significant edema. GI/ABD: soft without masses, without organomegaly. NEURO: Slight continuous movement of both feet and legs. SKIN: Several low, seborrheic dermatitis noted of scalp and nunes HEME/LYMPH: no bruising, petechia or significant adenopathy MUSC: back is normal in appearance. Extremities show significant muscle atrophy, sensation is decreased in both lower extremities.. PSYCH/MENTAL STATUS: Alert and oriented x 3. A/P Assessment and Plan Patient is a 42 year old Male with significant PMHx of DM2 with peripheral neuropathy, HTN, GERD, and (CAD and CHF per EMR) who was brought to the ED by EMS after sustaining a fall and possible seizure at home. On admission pt found to meet sepsis criteria HR-119, WBC-13.2, Lactic acid- 3.5, BP- 81/51 with suspected bacteremia of unknown infection source. Pt admitted for further workup of seizure and sepsis management. Assistance appreciated. Discharge Planning Dependent upon recommendations from cardiology and neurology. Attending Attestation Patient seen and examined. Case reviewed and discussed with the resident team. Agree with plan of care as discussed with me and documented in the resident note. Problem List: (1) Seizure ICD Codes: R56.9 - Unspecified convulsions Status: Acute Plan: -Normal Head CT -Abdomen/pelvis CT: No evidence of acute visceral injury. Loops of nondilated but mildly prominent small bowel which may represent a mild ileus. Moderate to large amount of stool in the distal colon. -neurology consulted -f/u EEG, MRI, urine drug screen -c/w neuro checks Q4h -Pt placed on cardiac monitoring -will attempt obtain history of fall vs seizure from his mother who was there during the incident (2) Sepsis ICD Codes: A41.9 - Sepsis, unspecified organism Status: Acute Plan: On admission pt found to meet sepsis criteria HR-119, WBC-13.2, Lactic acid- 3.5, BP- 81/51 with suspected bacteremia of unknown infection source. -c/w IVF -c/w zosyn and vanc for presumptive sepsis bacteremia, broad spectrum coverage (3) CAD (coronary artery disease) ICD Codes: I25.10 - Atherosclerotic heart disease of [place] coronary artery without angina pectoris Plan: unsure about CAD hx per pt, CAD noted as medical problem hospital records -Pt placed on cardiac monitoring -Pt denies CP -f/u troponin, cardiac enzymes -Cardiology consultation appreciated (4) CHF (congestive heart failure) ICD Codes: I50.9 - Heart failure, unspecified Status: Chronic Plan: unsure about CHF hx per pt, CHF noted as medical problem hospital records -f/u bnp -Pt placed on cardiac monitoring (5) Diabetes ICD Codes: E11.9 - Type 2 diabetes mellitus without complications Status: Chronic Plan: pt was found to be hyperglycemic 400s in cmp, received 8 units of insulin in the ED -A1C in Jun was 10 suggesting poor glycemic control, will repeat today to trend -pt does not take diabetic medication at home due to lack of insurance coverage for medications -pt placed on low dose SSI (6) Frailty ICD Codes: R54 - Age-related physical debility Status: Chronic Plan: -Physical therapy order placed -Seizure precautions -Bed rest until cleared -Case management order placed. Pt may need SNF placement (7) Anisocoria ICD Codes: H57.02 - Anisocoria Plan: Tonopen appx pressure of 20mmHg in R eye, taken by ED physician -consider further workup or ophthalmology consult -MRI as above -Chronic issue began January 2017 (8) Pain ICD Codes: R52 - Pain, unspecified Plan: Hx of chronic pain pt on [place] (9) Nutrition, metabolism, and development symptoms ICD Codes: R63.8 - Other symptoms and signs concerning food and fluid intake Plan: Fluids: 100mls/hr Electrolyte: hypoK, replete as needed Nutrition:NPO, speech evaluation pending DVT ppx: jalen Carolina Susan W. MD Sep 14, 2017 14:08
[2017-09-14 15:05] LABS: AUTOMATED NEUTROPHIL # 9.7 TH/MM3 (1.8-7.7); BASOPHIL # 0.1 TH/MM3 (0-0.2); BASOPHIL % 0.5 % (0.0-2.0); HEMATOCRIT 31.7 % (39.0-51.0); HEMOGLOBIN 10.5 GM/DL (13.0-17.0); LYMPH % 7.9 % (9.0-44.0); LYMPHOCYTE # 0.9 TH/MM3 (1.0-4.8); MEAN CORPUSCULAR HEMOGLOBIN 30.6 PG (27.0-34.0); MEAN CORPUSCULAR HGB CONC 33.2 % (32.0-36.0); MEAN PLATELET VOLUME 8.4 FL (7.0-11.0); MONO % 9.2 % (0.0-8.0); MONOCYTE # 1.1 TH/MM3 (0-0.9); NEUT % 82.4 % (16.0-70.0); PLATELET COUNT 170 TH/MM3 (150-450); RED BLOOD COUNT 3.44 MIL/MM3 (4.50-5.90); RED CELL DISTRIBUTION WIDTH 15.5 % (11.6-17.2); WHITE BLOOD COUNT 11.8 TH/MM3 (4.0-11.0)
[2017-09-14 15:35] LABS: ALBUMIN 2.8 GM/DL (3.4-5.0); ALKALINE PHOSPHATASE 267 U/L (45-117); ALT (GPT) 24 U/L (12-78); AST (GOT) 42 U/L (15-37); BLOOD UREA NITROGEN 25 MG/DL (7-18); CALCIUM 8.3 MG/DL (8.5-10.1); CHLORIDE 109 MEQ/L (98-107); CREATININE 1.38 MG/DL (0.60-1.30); GLOMERULAR FILTRATION RATE 56 ML/MIN (>89); GLUCOSE,RANDOM 204 MG/DL (74-106); SODIUM (NA) 140 MEQ/L (136-145); TOTAL BILIRUBIN ADULT 0.4 MG/DL (0.2-1.0); TOTAL PROTEIN 6.4 GM/DL (6.4-8.2)
[2017-09-14 15:36] LABS: BICARBONATE 19.7 MEQ/L (21.0-32.0)
--- NOTE | 2017-09-14 17:12 | OTSOAPIP ---
TIME SESSION COMPLETED: PM ATTEMPTED TO SEE FOR OT EVALUATION, HOWEVER PT OFF FLOOR FOR NUCLEAR MEDICINE. WILL FOLLOW NEXT DAY. SPOKE WITH NURSE, CEDRIC. Therapist: KENISHA MELVIN OT/L Signature on file
[2017-09-14 18:36] LABS: TROPONIN I 3.12 NG/ML (0.02-0.05)
--- NOTE | 2017-09-14 18:41 | ECHRPT ---
Indication: nstemi CONCLUSIONS The left ventricular systolic function is normal with an estimated ejection fraction in the range of 55-60%. Epseo-ui-cvvr mitral valve regurgitation. There is trace tricuspid valve regurgitation. BP: / HR: Rhythm: MEASUREMENTS (Male / Female) Normal Values Technical Quality:Technically difficult study 2D ECHO LV Diastolic Diameter PLAX 3.5 cm 4.2 - 5.9 / 3.9 - 5.3 cm LV Systolic Diameter PLAX 2.6 cm IVS Diastolic Thickness 1.3 cm 0.6 - 1.0 / 0.6 - 0.9 cm LVPW Diastolic Thickness 1.0 cm 0.6 - 1.0 / 0.6 - 0.9 cm LV Relative Wall Thickness 0.7 RV Internal Dim ED PLAX 3.2 cm DOPPLER TR Peak Velocity 294.0 cm/s TR Peak Gradient 34.6 mmHg Right Atrial Pressure 10.0 mmHg Pulmonary Artery Systolic Pressu 44.6 mmHg Right Ventricular Systolic Press 44.6 mmHg FINDINGS LEFT VENTRICLE The left ventricular systolic function is normal with an estimated ejection fraction in the range of 55-60%. Normal left ventricular size. No regional wall motion abnormalities are present. RIGHT VENTRICLE The right ventricular size is normal. LEFT ATRIUM The left atrial size is normal. RIGHT ATRIUM The right atrial size is normal. ATRIAL SEPTUM The interatrial septum not well visualized. AORTA The aortic root and proximal ascending aorta are not well visualized. MITRAL VALVE Structurally normal mitral valve. [id number]-td-foue mitral valve regurgitation. No mitral valve stenosis. AORTIC VALVE Trileaflet aortic valve. No aortic valve regurgitation. No aortic valve stenosis. TRICUSPID VALVE Structurally normal tricuspid valve. There is trace tricuspid valve regurgitation. The estimated pulmonary arterial pressure is 44.6 mmHg. PULMONARY VALVE The pulmonary valve is not well visualized. PERICARDIUM No pericardial effusion. Michael Covington DO (Electronically Signed) Final Date:14 September 2017 18:40
[2017-09-14] MEDS: GABAPENTIN 300 MG CAP PO SCH (20:54)
--- NOTE | 2017-09-14 21:26 | MB ---
cc: DANA DE LA VEGA MD DATE OF CONSULTATION 09/14/17 REASON FOR CONSULTATION Seizures. HISTORY OF PRESENT ILLNESS Mr. Arce is a 42-year-old male with past medical history of type 2 diabetes mellitus, peripheral neuropathy, hypertension, coronary artery disease , congestive heart failure, gastroesophageal reflux disease was brought to the [facility] Emergency Room by EMS after he fell with a possible seizure at home. The patient's mother is at the bedside and she states that after he fell she tried to help him sit up and his whole body was shaking with eyes closed, and his legs fell out. This lasted for a minute. He denies foaming , tongue-biting. He is not sure whether he lost his sphincter control during the episode and the mother denies postictal confusional state, however, she states he has occasional absence of loss of memory. The patient during the encounter endorses severe pain in both shoulders and neck. The patient has dislocated his left shoulder in January 2017. REVIEW OF SYSTEMS 12-point review of systems is negative except for what is stated in the HPI. PAST MEDICAL HISTORY Diabetes, hypertension, hypercholesteremia, fibromyalgia, gastroesophageal reflux disease, kidney stones. PAST SURGICAL HISTORY Left hip replacement status post fall. Right nephrolithotripsy. J-tube placement. Left hip surgery years ago and vasectomy 20 years ago. ALLERGIES No known allergies. FAMILY HISTORY Coronary artery disease and diabetes. SOCIAL HISTORY Lives with his mother, rarely drinks alcohol. Denies smoking. Positive for cocaine use. PHYSICAL EXAMINATION GENERAL: Thin pale male looks older than his stated age, in moderate to severe pain of the shoulders and neck. Mother at the bedside. HEENT: Atraumatic, normocephalic. Right eye dilated pupil. Intact hearing. CARDIOVASCULAR: Sinus tachycardia, regular rate and rhythm. RESPIRATORY: Clear to auscultation. No wheezes. GASTROINTESTINAL: Soft, nontender, nondistended. EXTREMITIES: Without clubbing, cyanosis or edema. Severe left shoulder tenderness. Moderate right shoulder tenderness with limitation of movement. NEUROLOGICAL: Awake, alert, no dysarthria. No dysphagia. No signs of meningeal irritation. However, there is stiff neck with tenderness of left shoulder, right pupil dilated sluggishly reacting to light. No ptosis. Injected right eye. Intact external ocular motility. No diplopia. No nystagmus. Intact facial symmetry. Intact facial sensation. Unable to assess upper extremity because of severe pain in the shoulders and limitation of movement. Unable to assess lower extremity, the patient is on a bed castillo and he has the bowel movement. PSYCHIATRIC: No hallucination. Normal mood and behavior. DIAGNOSTIC TESTS LABORATORY DATA White blood cells 11.8, hemoglobin 10.5, platelets 170, sodium 140, potassium 4 , anion gap of 11, BUN 25, creatinine 1.38, random glucose 204, calcium 8.3. AST 42, ALT 24, alkaline phosphatase 26, creatinine kinase 482. Troponin elevated at 5.25 and trending down. INR 1. UDS is positive for cocaine. DIAGNOSTIC IMAGING - Head CT scan negative. DIAGNOSTIC IMPRESSION 1. Possible seizures. 2. Sepsis. 3. Elevated troponin levels. 4. Diabetes mellitus. PLAN 1. Neuro checks q. four hourly. 2. No need for antiseizure medications at this time, likely this is a provoked seizure, may be drug related. 3. Continue supportive medical therapy. 4. MRI brain and MRA head. 5. DVT prophylaxis. 6. SCD. 7. GI prophylaxis. Thank you for the opportunity to participate in the care of your patient. MD SHABANA Davis/ATUL /8:53 PM /9:13 PM MTDJulius
[2017-09-15] VITALS (15 sets, daily range): BP systolic 96–120; BP diastolic 64–76; PULSE 114–122; RESP 16–20; TEMP 99.2–101; O2SAT 91–98
[2017-09-15] MEDS: PIPERACIL-TAZO 3.375 GM PREMIX 50 ML IV SCH ×4 (00:19→16:26)
[2017-09-15] MEDS: MORPHINE SULFATE 4 MG/ML INJ IV PUSH PRN ×3 (00:19→20:17)
[2017-09-15] MEDS: ONDANSETRON HCL 4 MG/2 ML VIAL IVP PRN ×3 (03:02→13:54)
[2017-09-15 06:27] LABS: AUTOMATED NEUTROPHIL # 9.5 TH/MM3 (1.8-7.7); BASOPHIL % 0.3 % (0.0-2.0); HEMATOCRIT 27.6 % (39.0-51.0); HEMOGLOBIN 9.4 GM/DL (13.0-17.0); LYMPH % 9.5 % (9.0-44.0); LYMPHOCYTE # 1.1 TH/MM3 (1.0-4.8); MEAN CELL VOLUME 91.9 FL (80.0-100.0); MEAN CORPUSCULAR HEMOGLOBIN 31.2 PG (27.0-34.0); MEAN CORPUSCULAR HGB CONC 33.9 % (32.0-36.0); MEAN PLATELET VOLUME 8.8 FL (7.0-11.0); MONO % 11.4 % (0.0-8.0); MONOCYTE # 1.4 TH/MM3 (0-0.9); NEUT % 78.8 % (16.0-70.0); PLATELET COUNT 145 TH/MM3 (150-450); RED BLOOD COUNT 3.01 MIL/MM3 (4.50-5.90); RED CELL DISTRIBUTION WIDTH 15.6 % (11.6-17.2); WHITE BLOOD COUNT 12.1 TH/MM3 (4.0-11.0)
[2017-09-15 06:44] LABS: ALBUMIN 2.6 GM/DL (3.4-5.0); ALT (GPT) 21 U/L (12-78); AST (GOT) 29 U/L (15-37); BICARBONATE 20.3 MEQ/L (21.0-32.0); BLOOD UREA NITROGEN 27 MG/DL (7-18); CALCIUM 8.1 MG/DL (8.5-10.1); CHLORIDE 108 MEQ/L (98-107); GLOMERULAR FILTRATION RATE 55 ML/MIN (>89); GLUCOSE,RANDOM 232 MG/DL (74-106); SODIUM (NA) 137 MEQ/L (136-145)
[2017-09-15 06:46] LABS: ALKALINE PHOSPHATASE 209 U/L (45-117); RANDOM VANCOMYCIN 5.8 COMMENT; TOTAL BILIRUBIN ADULT 0.4 MG/DL (0.2-1.0); TOTAL PROTEIN 6.3 GM/DL (6.4-8.2)
[2017-09-15] MEDS: SODIUM CHLOR 0.9% 1000 ML INJ 1,000 ML IV SCH ×2 (07:11→20:18)
--- NOTE | 2017-09-15 07:54 | HHI.FPPN ---
Subjective Remarks AFVSS stable overnight. No overnight events. Patient states he feels fine this morning, denying chest pain, shortness of breath, abdominal pain. Still having shoulder and hip pain which is improved with morphine. (Nancy Marina MD R2) Objective Vitals Vital Signs Date Time Temp Pulse Resp B/P (MAP) Pulse Ox O2 Delivery O2 Flow Rate FiO2 09/15/17 04:00 99.4 119 20 103/64 (77) 95 09/15/17 02:00 117 09/15/17 00:00 116 09/15/17 00:00 99.3 116 19 96/66 (76) 97 09/14/17 20:09 97 09/14/17 20:00 99.4 117 17 126/82 (97) 97 09/14/17 16:46 16 09/14/17 16:19 100.4 127 21 120/88 (99) 96 09/14/17 16:00 124 09/14/17 15:00 119 09/14/17 14:22 122 09/14/17 14:22 122 22 116/79 (91) 96 09/14/17 13:00 109 19 96 09/14/17 13:00 109 09/14/17 12:00 119 09/14/17 12:00 100.4 119 32 133/86 (102) 97 09/14/17 11:00 109 09/14/17 11:00 109 21 112/69 (83) 97 09/14/17 10:00 113 09/14/17 10:00 113 21 126/80 (95) 97 09/14/17 09:20 97 09/14/17 09:00 123 18 146/92 (110) 97 09/14/17 09:00 123 09/14/17 08:00 109 09/14/17 08:00 101.4 109 21 110/74 (86) 96 I/O 09/14/17 09/14/17 09/14/17 09/15/17 09/15/17 09/15/17 07:00 15:00 23:00 07:00 15:00 23:00 Intake Total 3460 ml 1480.1 ml 100 ml 1000 ml Output Total 0 ml 400 ml Balance 3460 ml 1080.1 ml 100 ml 1000 ml Intake Oral 0 ml 100 ml IV Total 3460 ml 1380.1 ml 100 ml 1000 ml Output Urine Total 0 ml 400 ml # Bowel Movements 1 2 (Nancy Marina MD R2) Result Diagram: 09/15/17 0543 09/15/17 0543 Imaging Last Impressions Brain MRI 09/15/17 0000 Signed Impressions: Service Date/Time: Friday, September 15, 2017 09:17 - CONCLUSION: 1. Mild periventricular T2 white matter small vessel ischemic white matter demyelination, out of proportion for age. 2. Otherwise, unremarkable MRI examination of the brain. Rao Kelsey MD Chest X-Ray 09/14/17 1242 Signed Impressions: Service Date/Time: Thursday, September 14, 2017 13:44 - CONCLUSION: No acute disease. Devyn Gonzalez MD Lung Scan-V Nuclear Medicine 09/14/17 0000 Signed Impressions: Service Date/Time: Thursday, September 14, 2017 12:36 - CONCLUSION: Low probability for pulmonary emboli. Ganesh Jaquez MD FACR Shoulder X-Ray 09/13/17 0000 Signed Impressions: Service Date/Time: September 22:15 - CONCLUSION: Residual fracture deformity through the humeral neck with no definite acute fracture. Lewis Alcaraz MD Head CT 09/13/17 0000 Signed Impressions: Service Date/Time: September 21:59 - CONCLUSION: Negative noncontrast head CT Lewis Alcaraz MD Cervical Spine CT 09/13/17 0000 Signed Impressions: Service Date/Time: September 21:59 - CONCLUSION: Negative trauma CT. Lewis Alcaraz MD Abdomen/Pelvis CT 09/13/17 0000 Signed Impressions: Service Date/Time: September 22:06 - CONCLUSION: 1. No evidence of acute visceral injury. 2. Loops of nondilated but mildly prominent small bowel which may represent a mild ileus. Moderate to large amount of stool in the distal colon. Lewis Alcaraz MD Objective Remarks GENERAL: This is a thin cachetic patient in no apparent distress. SKIN: Longitudinal cut noted along Right lateral forearm. No rashes. Cool and dry. HEAD: Atraumatic. Normocephalic. No temporal or scalp tenderness. EYES: Right pupil enlarged compared to Left, not reactive to light, no consensual pupillary response noted on Left eye. Right eye scleral injection. Left pupil is reactive to light, no consensual response noted on Right eye. Extraocular motions intact. No scleral icterus. No drainage. ENT: Nose without bleeding, purulent drainage or septal hematoma. Throat without erythema, tonsillar hypertrophy or exudate. Uvula midline. Airway patent. NECK: Trachea midline. No JVD or lymphadenopathy. Supple, nontender, no meningeal signs. Limited range of motion to left side of neck due to pain. CARDIOVASCULAR: Tachycardic. Normal S1 and S2. Regular rate and rhythm without murmurs, gallops, or rubs. RESPIRATORY: Clear to auscultation. Breath sounds equal bilaterally. No wheezes , rales, or rhonchi. GASTROINTESTINAL: Abdomen soft, non-tender, nondistended. No hepato-splenomegaly , or palpable masses. No guarding. MUSCULOSKELETAL: Extremities without clubbing, cyanosis, or edema. Left shoulder tenderness. No effusion, or edema noted. No calf tenderness. Negative Homans sign bilaterally. NEUROLOGICAL: Awake and alert. Cranial nerves II through XII intact. Motor and sensory grossly within normal limits. Five out of 4/5 muscle strength in all muscle groups. Normal speech. Pt ambulates with walker. Medications and IVs Inpatient Medications Acetaminophen (Tylenol) 650 mg Q4H PRN PO TEMP > 100.4, PAIN 1-2 Last administered on 09/14/17 21:52; Start 09/14/17 at 00:45 Bisacodyl (Dulcolax Supp) 10 mg DAILY PRN RECTAL SEVERE CONSITIPATION; Start 09/14/17 at 00:45 Clonidine (Catapres) 0.1 mg Q6H PRN PO SEE COMMENTS; Start 09/14/17 at 17:45 Enoxaparin Sodium (Lovenox Inj) 40 mg DAILY SQ ; Start 09/14/17 at 09:00; Stop 09/14/17 at 09:00; Status DC Gabapentin (Neurontin) 300 mg HS PO Last administered on 09/14/17 20:54; Start 09/14/17 at 21:00 Heparin Sodium (Porcine) (Heparin Inj) 4,000 units ONCE ONCE IV PUSH Last administered on 09/14/17 05:30; Start 09/14/17 at 05:30; Stop 09/14/17 at 05:34 ; Status DC Heparin Sodium/ Dextrose 250 ml @ 8 mls/hr TITRATE PRN IV Coagulation Management Last administered on 09/14/17 07:33; Start 09/14/17 at 05:30 Insulin Aspart (NovoLOG SUPPLEMENTAL SCALE) 1 ACHS SLIDING SCALE SQ Last administered on 09/15/17 08:42; Start 09/14/17 at 08:00 Insulin Human Regular (NovoLIN R INJ) 8 units ONCE ONCE SQ Last administered on 09/13/17 23:34; Start 09/13/17 at 23:30; Stop 09/13/17 at 23:31; Status DC Ketorolac Tromethamine (Toradol Inj) 30 mg ONCE ONCE IV PUSH Last administered on 09/13/17 23:34; Start 09/13/17 at 23:30; Stop 09/13/17 at 23:31 ; Status DC Lactulose (Lactulose Liq) 30 ml DAILY PRN PO SEVERE CONSITIPATION; Start at 00:45 Lorazepam (Ativan Inj) 2 mg UNSCH PRN IV PUSH SEE LABEL COMMENTS; Start at 01:00 Magnesium Hydroxide (Milk Of Magnesia Liq) 30 ml Q12H PRN PO Mild constipation ; Start 09/14/17 at 00:45 Metoprolol Tartrate (Lopressor Inj) 5 mg Q5M PRN IV PUSH RAPID HEART RATE >120 Last administered on 09/14/17 02:34; Start 09/14/17 at 02:30; Stop 09/14/17 at 09:13; Status DC Miscellaneous Information SPECIFIC LAB TO BE HOLLI... ONCE ONCE .XX ; Start 09/17 at 10:45; Stop 09/17/17 at 10:46 Morphine Sulfate (Morphine Inj) 4 mg Q3H PRN IV PUSH Pain 6-10;if unable to take PO Last administered on 09/15/17 00:19; Start 09/14/17 at 00:45 Naloxone HCl (Narcan Inj) 0.4 mg UNSCH PRN IV PUSH SEE LABEL COMMENTS; Start 09/14/17 at 00:45; Stop 09/14/17 at 00:55; Status DC Ondansetron HCl (Zofran Inj) 4 mg Q6H PRN IVP NAUSEA OR VOMITING Last administered on 09/15/17 03:02; Start 09/14/17 at 00:45 Pharmacy Profile Note 0 ml @ 0 mls/hr UNSCH OTHER ; Start 09/14/17 at 01:00 Piperacillin Sod/ Tazobactam Sod 50 ml @ 100 mls/hr Q6H IV Last administered on 09/15/17 05:40; Start 09/14/17 at 06:00 Potassium Chloride 100 ml @ 50 mls/hr ONCE ONCE IV ; Start 09/13/17 at 23:45; Stop 09/14/17 at 01:44; Status DC Potassium Chloride (KCl) 40 meq ONCE ONCE PO Last administered on 09/13/17 23 :34; Start 09/13/17 at 23:30; Stop 09/13/17 at 23:31; Status DC Senna/Docusate Sodium (Elisha-Colace) 1 tab BID PO Last administered on 20:54; Start 09/14/17 at 09:00 Sennosides (Senokot) 17.2 mg Q12H PRN PO Moderate constipation; Start 09/14/17 at 00:45 Sodium Chloride (NS Flush) 2 ml BID IV FLUSH Last administered on 09/15/17 08: 42; Start 09/14/17 at 09:00 Vancomycin HCl 500 mg/Sodium Chloride 100 ml @ 200 mls/hr ONCE ONCE IV Last administered on 09/14/17 01:39; Start 09/14/17 at 01:30; Stop 09/14/17 at 02:01 ; Status DC Vancomycin HCl 1000 mg/Sodium Chloride 260 ml @ 250 mls/hr ONCE ONCE IV Last administered on 09/14/17 00:12; Start 09/13/17 at 23:00; Stop 09/14/17 at 00:02 ; Status DC Vancomycin HCl 1250 mg/Sodium Chloride 262.5 ml @ 250 mls/hr Q24H IV ; Start 09/15/17 at 11:00 (Nancy Marina MD R2) Urinary Catheter: No (Nancy Marina MD R2) Vascular Central Line Catheter: No (Nancy Marina MD R2) A/P Assessment and Plan Patient is a 42 year old Male with significant PMHx of DM2 with peripheral neuropathy, HTN, GERD, and (CAD and CHF per EMR) who was brought to the ED by EMS after sustaining a fall and possible seizure at home. On admission pt found to meet sepsis criteria HR-119, WBC-13.2, Lactic acid- 3.5, BP- 81/51 with suspected bacteremia of unknown infection source. Pt admitted for further workup of seizure and sepsis management, and found to have significant troponin elevation and now on heparin gtt. Discharge Planning Unclear. Cardiology and neurology workups in progress (Nancy Marina MD R2) Attending Attestation Patient seen and examined. Case reviewed and discussed with the resident team. Agree with plan of care as discussed with me and documented in the resident note. (Amparo Mondragon MD) Problem List: (1) Seizure ICD Codes: R56.9 - Unspecified convulsions Status: Acute Plan: -Normal Head CT -Abdomen/pelvis CT: No evidence of acute visceral injury. Loops of nondilated but mildly prominent small bowel which may represent a mild ileus. Moderate to large amount of stool in the distal colon. -neurology consulted -EEG showing no epileptiform activity but this does not exclude epilepsy -MRI and MRA pending, if no stroke, further cardiac workup to occur -UDS positive for cocaine, possible drug exposures could have caused symptoms -c/w neuro checks Q4h -Pt placed on telemetry and in ICU, transfer to [facility] today -will attempt obtain history of fall vs seizure from his mother who was there during the incident (2) Sepsis ICD Codes: A41.9 - Sepsis, unspecified organism Status: Acute Plan: On admission pt found to meet sepsis criteria on admission HR-119, WBC- 13.2, Lactic acid- 3.5, BP- 81/51 with suspected bacteremia of unknown infection source. Continues to have leukocytosis and tachycardia -one aerobic bottle of blood cultures--> gram positive cocci -c/w IVF -c/w zosyn and vanc for presumptive sepsis bacteremia (start date 09/13) -repeat lactic acid today (3) Troponin level elevated ICD Codes: R74.8 - Abnormal levels of other serum enzymes Status: Acute Plan: Possibly related to cocaine use. PE workup (VQ scan) showing low probability for PE. Heparin gtt initiated 09/14 and therapeutic at this time. MRI /MRA pending. * Troponin 0.02 on admission, then >5. Now downtrending but still elevated. Will continue to trend. * No chest pain. * Cardiology consulted, awaiting MRI/MRA. If no stroke will consider cath Sunday * Continue heparin gtt at this time (4) CAD (coronary artery disease) ICD Codes: I25.10 - Atherosclerotic heart disease of [place] coronary artery without angina pectoris Status: Acute Plan: unsure about CAD hx per pt history. CAD noted as medical problem hospital records -Pt placed on cardiac monitoring -Pt denies CP -Cardiology consultation appreciated (5) CHF (congestive heart failure) ICD Codes: I50.9 - Heart failure, unspecified Status: Chronic Plan: unsure about CHF hx per pt, CHF noted as medical problem hospital records. No fluid overload clinically. -BNP normal -Echo showing EF 55-60% and otherwise unremarkable -Pt placed on cardiac monitoring (6) Diabetes ICD Codes: E11.9 - Type 2 diabetes mellitus without complications Status: Chronic Plan: Uncontrolled Pt was found to be hyperglycemic 400s, received 8 units of insulin in the ED -A1c in Jun was >10 suggesting poor glycemic control -A1c this hospital stay pending -pt does not take diabetic medication at home due to lack of insurance coverage for medications -pt placed on low dose SSI, require moderate supplementation -likely will benefit from long-acting insulin but states he cannot afford (7) FELICITAS (acute kidney injury) ICD Codes: N17.9 - Acute kidney failure, unspecified Status: Acute Plan: History of FELICITAS on previous hospitalization. Given uncontrolled DM suspect CKD also. * Monitor BMP * IVF (8) Frailty ICD Codes: R54 - Age-related physical debility Status: Chronic Plan: -Physical therapy order placed -Seizure precautions -Bed rest until cleared -Case management order placed. 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 Plan: Tonopen pressure of 20mmHg in R eye, taken by ED physician -consider further workup or ophthalmology consult -MRI as above -Chronic issue began January 2017 (10) Pain ICD Codes: R52 - Pain, unspecified Status: Chronic Plan: Hx of chronic pain pt on [place] Xrays shoulder on admission negative CT cervical spine negative for fracture on admission CT abdomen pelvis negative for fracture on admission Acetaminophen 650mg q4hr pain 1-2, Morphine 2mg IV q3hr for for pain 3-5, Morphine 2mg IV q3hr for pain 6-10 PT and OT pending (11) Cocaine abuse ICD Codes: F14.10 - Cocaine abuse, uncomplicated Status: Chronic Plan: As above (12) Nutrition, metabolism, and development symptoms ICD Codes: R63.8 - Other symptoms and signs concerning food and fluid intake Status: Acute Plan: Fluids: 100mls/hr NS Electrolyte: hypoK on admission, resolved; replete as needed Nutrition: heart healthy diet DVT ppx: SCDs, heparin gtt (Nancy Marina MD R2) Nancy Marina MD R2 Sep 15, 2017 07:54 Amparo Mondragon MD Sep 15, 2017 12:26
[2017-09-15] MEDS: SODIUM CHLORIDE 0.9% FLUSH 10 ML FLUSH IV FLUSH SCH ×2 (08:42→20:18)
[2017-09-15] MEDS: INSULIN ASPART SUPPLEMENTAL SCALE SQ SCH ×4 (08:42→21:00)
[2017-09-15] MEDS: DOCUSATE SODIUM 50 MG/SENNA 8.6 MG TAB PO SCH ×2 (08:42→20:18)
--- NOTE | 2017-09-15 09:50 | RADRPT ---
EXAM DATE/TIME: 09/15/2017 09:17 [facility] COMPARISON: No previous studies available for comparison. INDICATIONS : Seizures. MEDICAL HISTORY : Hypertension. Diabetes mellitus type 2. Hypercholesterolemia. SURGICAL HISTORY : Peg tube placment, left hip replacement ENCOUNTER: Initial ACUITY: 1 day PAIN SCORE: 0/10 LOCATION: cranial TECHNIQUE: Multiplanar, multisequence MRI of the brain was performed without contrast. FINDINGS: CEREBRUM: The ventricles are normal for age. No evidence of midline shift, mass lesion, hemorrhage or acute in farction. No extraaxial fluid collections are seen. The pituitary gland and suprasellar cistern are normal in configuration. WHITE MATTER: Mild periventricular white matter T2 elongation. POSTERIOR FOSSA: The cerebellum and brainstem are intact. The 4th ventricle is midline. The cerebellopontine angle is unremarkable. The cerebellar tonsils are normal in position. DIFFUSION IMAGING: No focal areas of restricted diffusion are seen. No evidence of acute infarction. EXTRACRANIAL: The visualized portions of the orbits and paranasal sinuses are unremarkable. CONCLUSION: 1. Mild periventricular T2 white matter small vessel ischemic white matter demyelination, out of prop ortion for age. 2. Otherwise, unremarkable MRI examination of the brain. Rao Kelsey MD on September 15, 2017 at 9:43 Board Certified Radiologist. This report was verified electronically.
--- NOTE | 2017-09-15 10:05 | RADRPT ---
EXAM DATE/TIME: 09/15/2017 09:17 [facility] COMPARISON: No previous studies available for comparison. INDICATIONS : Seizures. MEDICAL HISTORY : Hypertension. Diabetes mellitus type 2. Hypercholesterolemia. SURGICAL HISTORY : Peg tube placment, left hip replacement ENCOUNTER: Initial ACUITY: 1 day PAIN SCORE: 0/10 LOCATION: cranial Please note a normal MRA of the brain does not entirely exclude the possibility of a small aneurysm, nor the possibility of distal intracranial vessel disease. TECHNIQUE: 3D time of flight MRA was performed. Source images, multiplanar STS MIP, and 3D volume MIP reconstru ctions were reviewed. FINDINGS: Anterior circulation: Distal intracranial internal carotid arteries are patent with flow extending to the middle and anteri or cerebral arteries. 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 There is no evidence for aneurysm, vesse l truncation or stenosis, and no evidence for vascular malformation. Posterior circulation: Symmetric distal vertebral arteries with flow extending to basilar artery. There is no evidence for aneurysm, vessel truncation or stenosis, and no evidence for vascular malformation. CONCLUSION: 1. 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 2. Unremarkable MRA examination of the brain. Rao Kelsey MD on September 15, 2017 at 10:01 Board Certified Radiologist. This report was verified electronically.
[2017-09-15] MEDS ORDERED: VANCOMYCIN INJ 1,250 MG in SODIUM CHLOR 0.9% 250 ML INJ 250 ML IV SCH (11:00)
--- NOTE | 2017-09-15 11:36 | PD.CARD.PN ---
Subjective Subjective Remarks No events overnight No chest pain/SOB Objective Medications Current Medications Medications (Trade) Dose Ordered Sig/Abbi Route Start Time Stop Time Status Last Admin Sodium Chloride 1,000 ml @ 100 mls/hr Q10H IV 09/14/17 00:42 09/15/17 07:11 (NS Flush) 2 ml UNSCH PRN IV FLUSH 09/14/17 00:45 (NS Flush) 2 ml BID IV FLUSH 09/14/17 09:00 09/15/17 08:42 (Tylenol) 650 mg Q4H PRN PO 09/14/17 00:45 09/14/17 21:52 (Zofran Inj) 4 mg Q6H PRN IVP 09/14/17 00:45 09/15/17 09:59 (Narcan Inj) 0.4 mg UNSCH PRN IV PUSH 09/14/17 00:45 (Elisha-Colace) 1 tab BID PO 09/14/17 09:00 09/14/17 20:54 (Milk Of Magnesia Liq) 30 ml Q12H PRN PO 09/14/17 00:45 (Senokot) 17.2 mg Q12H PRN PO 09/14/17 00:45 (Dulcolax Supp) 10 mg DAILY PRN RECTAL 09/14/17 00:45 (Lactulose Liq) 30 ml DAILY PRN PO 09/14/17 00:45 (Morphine Inj) 2 mg Q3H PRN IV 09/14/17 01:00 09/15/17 04:13 (Morphine Inj) 4 mg Q3H PRN IV PUSH 09/14/17 00:45 09/15/17 00:19 Pharmacy Profile Note 0 ml @ 0 mls/hr UNSCH OTHER 09/14/17 01:00 Piperacillin Sod/ Tazobactam Sod 50 ml @ 100 mls/hr Q6H IV 09/14/17 06:00 09/15/17 11:10 (NovoLOG SUPPLEMENTAL SCALE) 1 ACHS SLIDING SCALE SQ 09/14/17 08:00 09/15/17 08:42 (Ativan Inj) 2 mg UNSCH PRN IV PUSH 09/14/17 01:00 Heparin Sodium/ Dextrose 250 ml @ 8 mls/hr TITRATE PRN IV 09/14/17 05:30 09/14/17 07:33 (Neurontin) 300 mg HS PO 09/14/17 21:00 09/14/17 20:54 (Catapres) 0.1 mg Q6H PRN PO 09/14/17 17:45 Vancomycin HCl 1250 mg/Sodium Chloride 262.5 ml @ 250 mls/hr Q24H IV 09/15/17 11:00 09/15/17 10:23 Miscellaneous Information SPECIFIC LAB TO BE HOLLI... ONCE ONCE .XX 09/17/17 10:45 09/17/17 10:46 Vital Signs / I&O Vital Signs Date Time Temp Pulse Resp B/P (MAP) Pulse Ox O2 Delivery O2 Flow Rate FiO2 09/15/17 10:00 117 09/15/17 08:00 91 21 09/15/17 08:00 100.0 122 16 107/68 (81) 93 09/15/17 08:00 122 09/15/17 06:00 117 09/15/17 04:00 99.4 119 20 103/64 (77) 95 09/15/17 04:00 117 09/15/17 02:00 117 09/15/17 00:00 116 09/15/17 00:00 99.3 116 19 96/66 (76) 97 09/14/17 20:09 97 09/14/17 20:00 99.4 117 17 126/82 (97) 97 09/14/17 16:46 16 09/14/17 16:19 100.4 127 21 120/88 (99) 96 09/14/17 16:00 124 09/14/17 15:00 119 09/14/17 14:22 122 09/14/17 14:22 122 22 116/79 (91) 96 09/14/17 13:00 109 19 96 09/14/17 13:00 109 09/14/17 12:00 119 09/14/17 12:00 100.4 119 32 133/86 (102) 97 I/O 09/14/17 09/14/17 09/14/17 09/15/17 09/15/17 09/15/17 07:00 15:00 23:00 07:00 15:00 23:00 Intake Total 3460 ml 1480.1 ml 340 ml 1000 ml Output Total 0 ml 400 ml 280 ml Balance 3460 ml 1080.1 ml 60 ml 1000 ml Intake Oral 0 ml 100 ml 240 ml IV Total 3460 ml 1380.1 ml 100 ml 1000 ml Output Urine Total 0 ml 400 ml 280 ml # Bowel Movements 1 2 1 Physical Exam GENERAL: Frail, AAOx3 SKIN: Warm and dry. HEAD: Atraumatic. Normocephalic. EYES: EMOI ENT: No nasal bleeding or discharge. Mucous membranes pink and moist. NECK: Trachea midline. No JVD. CARDIOVASCULAR: Regular rate and rhythm. RESPIRATORY: No accessory muscle use. Clear to auscultation. Breath sounds equal bilaterally. GASTROINTESTINAL: Abdomen soft, non-tender, nondistended. Hepatic and splenic margins not palpable. MUSCULOSKELETAL: Extremities without clubbing, cyanosis, or edema. No obvious deformities. NEUROLOGICAL: Awake and alert. No obvious cranial nerve deficits. Motor grossly within normal limits. Five out of 5 muscle strength in the arms and legs. Normal speech. PSYCHIATRIC: Appropriate mood and affect; insight and judgment normal. Laboratory Laboratory Tests Test 09/14/17 14:43 09/14/17 20:25 09/15/17 05:43 White Blood Count 11.8 TH/MM3 12.1 TH/MM3 Red Blood Count 3.44 MIL/MM3 3.01 MIL/MM3 Hemoglobin 10.5 GM/DL 9.4 GM/DL Hematocrit 31.7 % 27.6 % Mean Corpuscular Volume 92.0 FL 91.9 FL Mean Corpuscular Hemoglobin 30.6 PG 31.2 PG Mean Corpuscular Hemoglobin Concent 33.2 % 33.9 % Red Cell Distribution Width 15.5 % 15.6 % Platelet Count 170 TH/MM3 145 TH/MM3 Mean Platelet Volume 8.4 FL 8.8 FL Neutrophils (%) (Auto) 82.4 % 78.8 % Lymphocytes (%) (Auto) 7.9 % 9.5 % Monocytes (%) (Auto) 9.2 % 11.4 % Eosinophils (%) (Auto) 0.0 % 0.0 % Basophils (%) (Auto) 0.5 % 0.3 % Neutrophils # (Auto) 9.7 TH/MM3 9.5 TH/MM3 Lymphocytes # (Auto) 0.9 TH/MM3 1.1 TH/MM3 Monocytes # (Auto) 1.1 TH/MM3 1.4 TH/MM3 Eosinophils # (Auto) 0.0 TH/MM3 0.0 TH/MM3 Basophils # (Auto) 0.1 TH/MM3 0.0 TH/MM3 CBC Comment DIFF FINAL DIFF FINAL Differential Comment Activated Partial Thromboplast Time 52.3 SEC 75.8 SEC 50.8 SEC Blood Urea Nitrogen 25 MG/DL 27 MG/DL Creatinine 1.38 MG/DL 1.40 MG/DL Random Glucose 204 MG/DL 232 MG/DL Total Protein 6.4 GM/DL 6.3 GM/DL Albumin 2.8 GM/DL 2.6 GM/DL Calcium Level 8.3 MG/DL 8.1 MG/DL Alkaline Phosphatase 267 U/L 209 U/L Aspartate Amino Transf (AST/SGOT) 42 U/L 29 U/L Alanine Aminotransferase (ALT/SGPT) 24 U/L 21 U/L Total Bilirubin 0.4 MG/DL 0.4 MG/DL Sodium Level 140 MEQ/L 137 MEQ/L Potassium Level 4.0 MEQ/L 4.1 MEQ/L Chloride Level 109 MEQ/L 108 MEQ/L Carbon Dioxide Level 19.7 MEQ/L 20.3 MEQ/L Anion Gap 11 MEQ/L 9 MEQ/L Estimat Glomerular Filtration Rate 56 ML/MIN 55 ML/MIN Total Creatine Kinase 482 U/L Creatine Kinase MB 5.1 NG/ML Creatine Kinase MB % 1.1 % Troponin I 3.12 NG/ML Random Vancomycin Level 5.8 COMMENT Imaging Last 24 hours Impressions Head Magnetic Resonance Angiography 09/15/17 0000 Signed Impressions: Service Date/Time: Friday, September 15, 2017 09:17 - CONCLUSION: 1. 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 2. Unremarkable MRA examination of the brain. Rao Kelsey MD Brain MRI 09/15/17 0000 Signed Impressions: Service Date/Time: Friday, September 15, 2017 09:17 - CONCLUSION: 1. Mild periventricular T2 white matter small vessel ischemic white matter demyelination, out of proportion for age. 2. Otherwise, unremarkable MRI examination of the brain. Rao Kelsey MD Chest X-Ray 09/14/17 1242 Signed Impressions: Service Date/Time: Thursday, September 14, 2017 13:44 - CONCLUSION: No acute disease. Devyn Gonzalez MD Assessment and Plan Problem List: (1) Troponin level elevated ICD Codes: R74.8 - Abnormal levels of other serum enzymes Status: Acute (2) Cocaine abuse ICD Codes: F14.10 - Cocaine abuse, uncomplicated Status: Chronic (3) CHF (congestive heart failure) ICD Codes: I50.9 - Heart failure, unspecified Status: Chronic (4) New onset seizure ICD Codes: R56.9 - Unspecified convulsions Status: Acute (5) Diabetes ICD Codes: E11.9 - Type 2 diabetes mellitus without complications Status: Chronic (6) Frailty ICD Codes: R54 - Age-related physical debility Status: Chronic Assessment and Plan 1) Elevated troponin Unsure of cause, no symptoms other than syncopal episode 2) ?Seizure activity 3) Discussed with patient, will consider cardiac catheterization for diagnostic purposes 4) Cocaine abuse Possible spasm, arrhythmia, and accelerated arthrosclerosis Michael Covington DO Sep 15, 2017 11:36
[2017-09-15 11:37] LABS: HEMOGLOBIN A1C 10.5 % (4.3-6.0)
[2017-09-15] MEDS: HEPARIN-D5W 25,000 U/250 ML 250 ML IV PRN (15:19)
[2017-09-15] MEDS: GABAPENTIN 300 MG CAP PO SCH (20:17)
--- NOTE | 2017-09-15 23:28 | HHI.PR ---
Review/Management Diagnosis - Seizure like activity - Sepsis. - Elevated troponin levels. - Diabetes mellitus. Plan 1. Neuro checks q. four hourly. 2. No need for antiseizure medications at this time, likely this is a provoked seizure, may be drug related. 3. Continue supportive medical therapy. 4. DVT prophylaxis. 5. SCD. 6. GI prophylaxis. 7. Please call for questions Diagnosis/Plan: Subjective Subjective Comments No acute events reported Complains of less shoulder pain MRI/MRA head are unremarkable for an acute intracranial abnormality EEG with no evidence of an ictal abnormality Active Medications Current Medications Medications (Trade) Dose Ordered Sig/Abbi Route Start Time Stop Time Status Last Admin Sodium Chloride 1,000 ml @ 100 mls/hr Q10H IV 09/14/17 00:42 09/15/17 20:18 (NS Flush) 2 ml UNSCH PRN IV FLUSH 09/14/17 00:45 (NS Flush) 2 ml BID IV FLUSH 09/14/17 09:00 09/15/17 20:18 (Tylenol) 650 mg Q4H PRN PO 09/14/17 00:45 09/14/17 21:52 (Zofran Inj) 4 mg Q6H PRN IVP 09/14/17 00:45 09/15/17 13:54 (Narcan Inj) 0.4 mg UNSCH PRN IV PUSH 09/14/17 00:45 (Elisha-Colace) 1 tab BID PO 09/14/17 09:00 09/14/17 20:54 (Milk Of Magnesia Liq) 30 ml Q12H PRN PO 09/14/17 00:45 (Senokot) 17.2 mg Q12H PRN PO 09/14/17 00:45 (Dulcolax Supp) 10 mg DAILY PRN RECTAL 09/14/17 00:45 (Lactulose Liq) 30 ml DAILY PRN PO 09/14/17 00:45 (Morphine Inj) 2 mg Q3H PRN IV 09/14/17 01:00 09/15/17 04:13 (Morphine Inj) 4 mg Q3H PRN IV PUSH 09/14/17 00:45 09/15/17 20:17 Pharmacy Profile Note 0 ml @ 0 mls/hr UNSCH OTHER 09/14/17 01:00 Piperacillin Sod/ Tazobactam Sod 50 ml @ 100 mls/hr Q6H IV 09/14/17 06:00 09/15/17 16:26 (NovoLOG SUPPLEMENTAL SCALE) 1 ACHS SLIDING SCALE SQ 09/14/17 08:00 09/15/17 17:36 (Ativan Inj) 2 mg UNSCH PRN IV PUSH 09/14/17 01:00 Heparin Sodium/ Dextrose 250 ml @ 8 mls/hr TITRATE PRN IV 09/14/17 05:30 09/15/17 15:19 (Neurontin) 300 mg HS PO 09/14/17 21:00 09/15/17 20:17 (Catapres) 0.1 mg Q6H PRN PO 09/14/17 17:45 Vancomycin HCl 1250 mg/Sodium Chloride 262.5 ml @ 250 mls/hr Q24H IV 09/15/17 11:00 09/15/17 10:23 Miscellaneous Information SPECIFIC LAB TO BE HOLLI... ONCE ONCE .XX 09/17/17 10:45 09/17/17 10:46 Allergies Allergies Coded Allergies *MDRO Multi-Drug Resistant Organism (Verified Adverse Reaction, Unknown, MRSA , 09/13/17) Review of Systems All other ROS: ROS reviewed as documented in chart Exam I&O / VS 09/15/17 09/15/17 09/16/17 15:00 23:00 07:00 Intake Total 1312.5 ml 1828 ml Balance 1312.5 ml 1828 ml Intake Oral 960 ml IV Total 1312.5 ml 868 ml # Voids 3 # Bowel Movements 1 Vital Signs Date Time Temp Pulse Resp B/P (MAP) Pulse Ox O2 Delivery O2 Flow Rate FiO2 09/15/17 20:00 101.0 121 18 111/73 (86) 98 09/15/17 18:00 116 09/15/17 16:00 99.4 121 18 100/68 (79) 94 09/15/17 16:00 121 09/15/17 14:00 122 09/15/17 12:00 122 09/15/17 12:00 99.2 122 16 120/76 (91) 95 09/15/17 10:00 117 09/15/17 08:00 91 21 09/15/17 08:00 100.0 122 16 107/68 (81) 93 09/15/17 08:00 122 09/15/17 06:00 117 09/15/17 04:00 99.4 119 20 103/64 (77) 95 09/15/17 04:00 117 09/15/17 02:00 117 09/15/17 00:00 116 09/15/17 00:00 99.3 116 19 96/66 (76) 97 Exam Comments GENERAL: Looks pale, and older than his stated age, in mild to moderate pain of the shoulders and neck. HEENT: Atraumatic, normocephalic. Right eye dilated pupil. Intact hearing. CARDIOVASCULAR: Sinus tachycardia, regular rate and rhythm. RESPIRATORY: Clear to auscultation. No wheezes. GASTROINTESTINAL: Soft, nontender, nondistended. EXTREMITIES: Without clubbing, cyanosis or edema. Severe left shoulder tenderness. Moderate right shoulder tenderness with limitation of movement. NEUROLOGICAL: Awake, alert, no dysarthria. No dysphagia. No signs of meningeal irritation. However, there is stiff neck with tenderness of left shoulder, right pupil dilated sluggishly reacting to light. No ptosis. Injected right eye. Intact external ocular motility. No diplopia. No nystagmus. Intact facial symmetry. Intact facial sensation. Normal motor and sensory exam. PSYCHIATRIC: No hallucination. Normal mood and behavior. Objective Radiology Results Last 72 hours Impressions Chest X-Ray 09/16/17 0000 Signed Impressions: Service Date/Time: Saturday, September 16, 2017 06:02 - CONCLUSION: No acute cardiopulmonary disease identified. Alex Russell MD Head Magnetic Resonance Angiography 09/15/17 0000 Signed Impressions: Service Date/Time: Friday, September 15, 2017 09:17 - CONCLUSION: 1. 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 2. Unremarkable MRA examination of the brain. Rao Kelsey MD Brain MRI 09/15/17 0000 Signed Impressions: Service Date/Time: Friday, September 15, 2017 09:17 - CONCLUSION: 1. Mild periventricular T2 white matter small vessel ischemic white matter demyelination, out of proportion for age. 2. Otherwise, unremarkable MRI examination of the brain. Rao Kelsey MD Chest X-Ray 09/14/17 1242 Signed Impressions: Service Date/Time: Thursday, September 14, 2017 13:44 - CONCLUSION: No acute disease. Devyn Gonzalez MD Lung Scan-VQ Nuclear Medicine 09/14/17 0000 Signed Impressions: Service Date/Time: Thursday, September 14, 2017 12:36 - CONCLUSION: Low probability for pulmonary emboli. Ganesh Jaquez MD FACR Micro and Labs Laboratory Tests Test 09/15/17 05:43 09/15/17 12:35 09/15/17 19:28 White Blood Count 12.1 Red Blood Count 3.01 Hemoglobin 9.4 Hematocrit 27.6 Mean Corpuscular Volume 91.9 Mean Corpuscular Hemoglobin 31.2 Mean Corpuscular Hemoglobin Concent 33.9 Red Cell Distribution Width 15.6 Platelet Count 145 Mean Platelet Volume 8.8 Neutrophils (%) (Auto) 78.8 Lymphocytes (%) (Auto) 9.5 Monocytes (%) (Auto) 11.4 Eosinophils (%) (Auto) 0.0 Basophils (%) (Auto) 0.3 Neutrophils # (Auto) 9.5 Lymphocytes # (Auto) 1.1 Monocytes # (Auto) 1.4 Eosinophils # (Auto) 0.0 Basophils # (Auto) 0.0 CBC Comment DIFF FINAL Differential Comment Activated Partial Thromboplast Time 50.8 53.7 52.6 Blood Urea Nitrogen 27 Creatinine 1.40 Random Glucose 232 Total Protein 6.3 Albumin 2.6 Calcium Level 8.1 Alkaline Phosphatase 209 Aspartate Amino Transf (AST/SGOT) 29 Alanine Aminotransferase (ALT/SGPT) 21 Total Bilirubin 0.4 Sodium Level 137 Potassium Level 4.1 Chloride Level 108 Carbon Dioxide Level 20.3 Anion Gap 9 Estimat Glomerular Filtration Rate 55 Random Vancomycin Level 5.8 Lactic Acid Level 2.4 Troponin I 1.13 Date/Time Source Procedure Growth Status 09/13/17 23:07 Blood Peripheral Aerobic Blood Culture - Preliminary Staph Sp Coagulase Negative Resulted 09/13/17 23:07 Blood Peripheral Anaerobic Blood Culture - Preliminary NO GROWTH IN 2 DAYS Resulted 09/14/17 22:30 Stool Stool Stool Occult Blood (ANGELIQUE) - Final HEMOCCULT POSITIVE Complete Erik Porter MD Sep 15, 2017 23:28
[2017-09-16] VITALS (25 sets, daily range): BP systolic 103–137; BP diastolic 64–90; PULSE 90–122; RESP 16–18; TEMP 98.1–102.2; O2SAT 18–96
[2017-09-16] MEDS: PIPERACIL-TAZO 3.375 GM PREMIX 50 ML IV SCH ×4 (00:24→17:51)
[2017-09-16] MEDS: SODIUM CHLOR 0.9% 1000 ML INJ 1,000 ML IV SCH ×2 (02:42→12:42)
[2017-09-16] MEDS: ACETAMINOPHEN 325 MG TAB PO PRN (04:01)
--- NOTE | 2017-09-16 04:38 | HHI.PR ---
Addendum to Inpatient Note Addendum Reason: Additional Documentation Additional Information S: Paged on patient at 0330 for diarrhea, increased O2 requirement (O2 sat of 84 , corrected to mid 90's on 2L NC), T 102. On assessment, patient denies CP, SOB , cough. Complains of abdominal bloating. O: Vital Signs Date Time Temp Pulse Resp B/P (MAP) Pulse Ox O2 Delivery O2 Flow Rate FiO2 09/16/17 02:00 117 09/16/17 00:00 100.0 18 103/64 (77) 94 09/15/17 08:00 21 09/14/17 02:34 Room Air Gen: Patient resting comfortably laying in bed with NC in place. NAD CV: Tachycardic to 110's, regular. Faint systolic murmur appreciated along L sternal border. Resp: Good inspiratory effort, moving air well bilaterally. Bibasilar crackles appreciated. No wheezing Abd: soft, nondistended. Mild to moderate tenderness in upper quadrants Ext: no lower extremity edema appreciated. No calf tenderness Neuro: CN II - XII grossly intact. Muscle strength 5/5 in all extremities A: 42 yo M with new onset diarrhea, increased oxygen requirement and fever P: Diarrhea - suspecting C diff. C diff PCR ordered - Hemoccult on 09/14 was positive, cannot rule out GI bleed, may have been obtained following Heparin drip -continue to trend H/H, has been downtrending since starting Heparin -repeat CBC, monitoring platelets (145) for Heparin induced thrombocytopenia -Patient on Heparin with plan for cardiac cath on 09/17 Increased O2 requirement -O2 95% on 2L NC -bibasilar crackles appreciated on exam -ddx include atelectasis, septic emboli, PE, aspiration PNA, CHF exacerbation -Ordering CXR, repeat blood cultures, CBC, CMP, BNP, lactic acid, D-dimer -continuing broad spectrum antibiotic coverage of Vanc, zosyn -Echo from 09/14 showed no signs of vegetation, EF 55-60% -D dimer may be elevated in setting of acute infection, sepsis, NH, acute renal failure -If elevated D-dimer, may consider v/q scan to r/o PE -had v/q scan on 09/14 which showed low risk for PE, but now suspicious with increased O2 demand Fever -Nurse reporting temp of 102 -workup/ddx as above Melvin Piper MD R1 Sep 16, 2017 04:38
--- NOTE | 2017-09-16 05:23 | RADRPT ---
EXAM DATE/TIME: 09/16/2017 06:02 [facility] COMPARISON: CHEST PA & LAT, March 04, 2016, 12:37. INDICATIONS : Evaluate for pnuemonia MEDICAL HISTORY : Diabetes mellitus type II. Cardiovascular disease. Hepatitis C. SURGICAL HISTORY : None. ENCOUNTER: Subsequent ACUITY: 3 days PAIN SCORE: 7/10 LOCATION: Bilateral chest FINDINGS: PA and lateral views of the chest. The lungs are clear. Cardiomediastinal silhouette within normal li mits. No evidence of pleural effusion or pneumothorax. CONCLUSION: No acute cardiopulmonary disease identified. Alex Russell MD on September 16, 2017 at 5:17 Board Certified Radiologist. This report was verified electronically.
[2017-09-16 06:21] LABS: AUTOMATED NEUTROPHIL # 8.2 TH/MM3 (1.8-7.7); BASOPHIL # 0.1 TH/MM3 (0-0.2); BASOPHIL % 0.7 % (0.0-2.0); EOSINOPHIL # 0.1 TH/MM3 (0-0.4); EOSINOPHIL % 0.5 % (0.0-4.0); HEMATOCRIT 25.1 % (39.0-51.0); HEMOGLOBIN 8.3 GM/DL (13.0-17.0); LYMPH % 13.5 % (9.0-44.0); LYMPHOCYTE # 1.5 TH/MM3 (1.0-4.8); MEAN CELL VOLUME 92.7 FL (80.0-100.0); MEAN CORPUSCULAR HEMOGLOBIN 30.6 PG (27.0-34.0); MONO % 10.1 % (0.0-8.0); MONOCYTE # 1.1 TH/MM3 (0-0.9); NEUT % 75.2 % (16.0-70.0); PLATELET COUNT 162 TH/MM3 (150-450); RED BLOOD COUNT 2.71 MIL/MM3 (4.50-5.90); RED CELL DISTRIBUTION WIDTH 15.5 % (11.6-17.2); WHITE BLOOD COUNT 10.9 TH/MM3 (4.0-11.0)
[2017-09-16 06:52] LABS: ALBUMIN 2.2 GM/DL (3.4-5.0); AST (GOT) 34 U/L (15-37); BICARBONATE 16.9 MEQ/L (21.0-32.0); BLOOD UREA NITROGEN 27 MG/DL (7-18); CALCIUM 7.9 MG/DL (8.5-10.1); CHLORIDE 107 MEQ/L (98-107); CREATININE 1.76 MG/DL (0.60-1.30); GLOMERULAR FILTRATION RATE 42 ML/MIN (>89); GLUCOSE,RANDOM 189 MG/DL (74-106); SODIUM (NA) 135 MEQ/L (136-145)
[2017-09-16 06:57] LABS: ALKALINE PHOSPHATASE 176 U/L (45-117); ALT (GPT) 28 U/L (12-78); TOTAL BILIRUBIN ADULT 0.4 MG/DL (0.2-1.0); TOTAL PROTEIN 5.8 GM/DL (6.4-8.2)
[2017-09-16 07:03] LABS: TROPONIN I 0.75 NG/ML (0.02-0.05)
[2017-09-16] MEDS ORDERED: SODIUM CHLOR 0.9% 250 ML INJ 250 ML IV ONE (07:15)
[2017-09-16] MEDS ORDERED: diphenhydrAMINE HCL 25 MG CAP PO PRN (07:15)
[2017-09-16] MEDS ORDERED: ACETAMINOPHEN 325 MG TAB PO PRN (07:15)
[2017-09-16] MEDS ORDERED: LOPERAMIDE HCL 2 MG CAP PO ONE (08:15)
[2017-09-16] MEDS: SODIUM CHLORIDE 0.9% FLUSH 10 ML FLUSH IV FLUSH SCH ×2 (08:20→21:00)
[2017-09-16] MEDS: INSULIN ASPART SUPPLEMENTAL SCALE SQ SCH ×4 (08:20→21:00)
--- NOTE | 2017-09-16 10:01 | HHI.FPPN ---
Subjective Remarks Patient was seen and examined this morning. Early this morning residents were paged regarding uncontrollable diarrhea liquid brown and simon in color. Patient does have chronic diarrhea episodes but had not had any significant events this hospital stay up until this point. His temperature was also noted to be 102.2F. His oxygen saturations were noted to be in the 80s at that time as well. He was placed on nasal cannula. Patient states that he did not have any shortness of breath or chest pain during the episode or before. He does note the diarrhea is significant but he does also note that he has had this for 3-4 months. He denies any other symptoms other than mild epigastric discomfort. (Nancy Marina MD R2) Objective Vitals Vital Signs Date Time Temp Pulse Resp B/P (MAP) Pulse Ox O2 Delivery O2 Flow Rate FiO2 09/16/17 06:00 102 09/16/17 05:00 102.2 122 18 137/80 (99) 94 09/16/17 05:00 100 09/16/17 04:00 120 09/16/17 03:00 118 09/16/17 02:00 117 09/16/17 01:01 117 09/16/17 00:00 120 09/16/17 00:00 100.0 121 18 103/64 (77) 94 09/15/17 23:00 115 09/15/17 22:00 118 09/15/17 21:00 116 09/15/17 20:00 116 09/15/17 20:00 101.0 121 18 111/73 (86) 98 09/15/17 19:00 114 09/15/17 18:00 116 09/15/17 16:00 99.4 121 18 100/68 (79) 94 09/15/17 16:00 121 09/15/17 14:00 122 09/15/17 12:00 122 09/15/17 12:00 99.2 122 16 120/76 (91) 95 09/15/17 10:00 117 I/O 09/15/17 09/15/17 09/15/17 09/16/17 09/16/17 09/16/17 07:00 15:00 23:00 07:00 15:00 23:00 Intake Total 340 ml 1312.5 ml 1828 ml 240 ml Output Total 280 ml 475 ml Balance 60 ml 1312.5 ml 1828 ml -235 ml Intake Oral 240 ml 960 ml 240 ml IV Total 100 ml 1312.5 ml 868 ml Output Urine Total 280 ml 475 ml # Voids 3 # Bowel Movements 1 1 6 (Nancy Marina MD R2) Result Diagram: 09/16/17 0557 09/16/17 0547 Imaging Last Impressions Chest X-Ray 09/16/17 0000 Signed Impressions: Service Date/Time: Saturday, September 16, 2017 06:02 - CONCLUSION: No acute cardiopulmonary disease identified. Alex Russell MD Head Magnetic Resonance Angiography 09/15/17 0000 Signed Impressions: Service Date/Time: Friday, September 15, 2017 09:17 - CONCLUSION: 1. 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 2. Unremarkable MRA examination of the brain. Rao Kelsey MD Brain MRI 09/15/17 0000 Signed Impressions: Service Date/Time: Friday, September 15, 2017 09:17 - CONCLUSION: 1. Mild periventricular T2 white matter small vessel ischemic white matter demyelination, out of proportion for age. 2. Otherwise, unremarkable MRI examination of the brain. Rao Kelsey MD Lung Scan- Nuclear Medicine 09/14/17 0000 Signed Impressions: Service Date/Time: Thursday, September 14, 2017 12:36 - CONCLUSION: Low probability for pulmonary emboli. Ganesh Jaquez MD FACR Shoulder X-Ray 09/13/17 0000 Signed Impressions: Service Date/Time: September 22:15 - CONCLUSION: Residual fracture deformity through the humeral neck with no definite acute fracture. Lewis Alcaraz MD Head CT 09/13/17 0000 Signed Impressions: Service Date/Time: September 21:59 - CONCLUSION: Negative noncontrast head CT Lewis Alcaraz MD Cervical Spine CT 09/13/17 0000 Signed Impressions: Service Date/Time: September 21:59 - CONCLUSION: Negative trauma CT. Lewis Alcaraz MD Abdomen/Pelvis CT 09/13/17 0000 Signed Impressions: Service Date/Time: September 22:06 - CONCLUSION: 1. No evidence of acute visceral injury. 2. Loops of nondilated but mildly prominent small bowel which may represent a mild ileus. Moderate to large amount of stool in the distal colon. Lewis Alcaraz MD Objective Remarks GENERAL: This is a thin cachetic patient in no apparent distress. He is resting comfortably with nasal cannula in place. SKIN: Longitudinal cut noted along Right lateral forearm. No rashes. Cool and dry. HEAD: Atraumatic. Normocephalic. No temporal or scalp tenderness. EYES: Right pupil enlarged compared to Left, not reactive to light, no consensual pupillary response noted on Left eye. Right eye scleral injection. Left pupil is reactive to light, no consensual response noted on Right eye. Extraocular motions intact. No scleral icterus. No drainage. ENT: Nose without bleeding, purulent drainage or septal hematoma. Throat without erythema, tonsillar hypertrophy or exudate. Uvula midline. Airway patent. NECK: Trachea midline. No JVD or lymphadenopathy. Supple, nontender, no meningeal signs. Limited range of motion to left side of neck due to pain. CARDIOVASCULAR: Tachycardic. Normal S1 and S2. Regular rate and rhythm without murmurs, gallops, or rubs. RESPIRATORY: Clear to auscultation. Breath sounds equal bilaterally. No wheezes , rales, or rhonchi. GASTROINTESTINAL: Abdomen soft, non-tender, nondistended. No hepato-splenomegaly , or palpable masses. No guarding. MUSCULOSKELETAL: Extremities without clubbing, cyanosis, or edema. Left shoulder tenderness. No effusion, or edema noted. No calf tenderness. Negative Homans sign bilaterally. NEUROLOGICAL: Awake and alert. Cranial nerves II through XII intact aside from right eye abnormalities. Motor and sensory grossly within normal limits. Five out of 4/5 muscle strength in all muscle groups. Normal speech. Medications and IVs Inpatient Medications Acetaminophen (Tylenol) 650 mg Q4H PRN PO SEE LABEL COMMENTS; Start 09/16/17 at 07:15; Stop 09/16/17 at 23:59 Bisacodyl (Dulcolax Supp) 10 mg DAILY PRN RECTAL SEVERE CONSITIPATION; Start 09/14/17 at 00:45 Clonidine (Catapres) 0.1 mg Q6H PRN PO SEE COMMENTS; Start 09/14/17 at 17:45 Diphenhydramine HCl (Benadryl) 25 mg Q4H PRN PO SEE LABEL COMMENTS; Start 09/16 at 07:15; Stop 09/16/17 at 23:59 Enoxaparin Sodium (Lovenox Inj) 40 mg DAILY SQ ; Start 09/14/17 at 09:00; Stop 09/14/17 at 09:00; Status DC Gabapentin (Neurontin) 300 mg HS PO Last administered on 09/15/17 20:17; Start 09/14/17 at 21:00 Heparin Sodium (Porcine) (Heparin Inj) 4,000 units ONCE ONCE IV PUSH Last administered on 09/14/17 05:30; Start 09/14/17 at 05:30; Stop 09/14/17 at 05:34 ; Status DC Heparin Sodium/ Dextrose 250 ml @ 8 mls/hr TITRATE PRN IV Coagulation Management Last administered on 09/15/17 15:19; Start 09/14/17 at 05:30; Stop 09/16/17 at 07:07; Status DC Insulin Aspart (NovoLOG SUPPLEMENTAL SCALE) 1 ACHS SLIDING SCALE SQ Last administered on 09/15/17 17:36; Start 09/14/17 at 08:00 Insulin Human Regular (NovoLIN R INJ) 8 units ONCE ONCE SQ Last administered on 09/13/17 23:34; Start 09/13/17 at 23:30; Stop 09/13/17 at 23:31; Status DC Ketorolac Tromethamine (Toradol Inj) 30 mg ONCE ONCE IV PUSH Last administered on 09/13/17 23:34; Start 09/13/17 at 23:30; Stop 09/13/17 at 23:31 ; Status DC Lactulose (Lactulose Liq) 30 ml DAILY PRN PO SEVERE CONSITIPATION; Start at 00:45 Loperamide HCl (Imodium) 4 mg ONCE ONCE PO ; Start 09/16/17 at 08:15; Stop 09/16/17 at 08:16; Status DC Lorazepam (Ativan Inj) 2 mg UNSCH PRN IV PUSH SEE LABEL COMMENTS; Start at 01:00 Magnesium Hydroxide (Milk Of Magnesia Liq) 30 ml Q12H PRN PO Mild constipation ; Start 09/14/17 at 00:45 Metoprolol Tartrate (Lopressor Inj) 5 mg Q5M PRN IV PUSH RAPID HEART RATE >120 Last administered on 09/14/17 02:34; Start 09/14/17 at 02:30; Stop 09/14/17 at 09:13; Status DC Miscellaneous Information SPECIFIC LAB TO BE HOLLI... ONCE ONCE .XX ; Start 09/17 at 10:45; Stop 09/17/17 at 10:46 Morphine Sulfate (Morphine Inj) 4 mg Q3H PRN IV PUSH Pain 6-10;if unable to take PO Last administered on 09/15/17 20:17; Start 09/14/17 at 00:45 Naloxone HCl (Narcan Inj) 0.4 mg UNSCH PRN IV PUSH SEE LABEL COMMENTS; Start 09/14/17 at 00:45; Stop 09/14/17 at 00:55; Status DC Ondansetron HCl (Zofran Inj) 4 mg Q6H PRN IVP NAUSEA OR VOMITING Last administered on 09/15/17 13:54; Start 09/14/17 at 00:45 Pharmacy Profile Note 0 ml @ 0 mls/hr UNSCH OTHER ; Start 09/14/17 at 01:00 Piperacillin Sod/ Tazobactam Sod 50 ml @ 100 mls/hr Q6H IV Last administered on 09/16/17 06:29; Start 09/14/17 at 06:00 Potassium Chloride 100 ml @ 50 mls/hr ONCE ONCE IV ; Start 09/13/17 at 23:45; Stop 09/14/17 at 01:44; Status DC Potassium Chloride (KCl) 40 meq ONCE ONCE PO Last administered on 09/13/17 23 :34; Start 09/13/17 at 23:30; Stop 09/13/17 at 23:31; Status DC Senna/Docusate Sodium (Elisha-Colace) 1 tab BID PO Last administered on 20:54; Start 09/14/17 at 09:00; Stop 09/16/17 at 04:21; Status DC Sennosides (Senokot) 17.2 mg Q12H PRN PO Moderate constipation; Start 09/14/17 at 00:45 Sodium Chloride 250 ml @ 15 mls/hr ONCE ONCE IV ; Start 09/16/17 at 07:15; Stop 09/16/17 at 23:54 Sodium Chloride (NS Flush) 2 ml BID IV FLUSH Last administered on 09/15/17 20: 18; Start 09/14/17 at 09:00 Vancomycin HCl 500 mg/Sodium Chloride 100 ml @ 200 mls/hr ONCE ONCE IV Last administered on 09/14/17 01:39; Start 09/14/17 at 01:30; Stop 09/14/17 at 02:01 ; Status DC Vancomycin HCl 1000 mg/Sodium Chloride 260 ml @ 250 mls/hr ONCE ONCE IV Last administered on 09/14/17 00:12; Start 09/13/17 at 23:00; Stop 09/14/17 at 00:02 ; Status DC Vancomycin HCl 1250 mg/Sodium Chloride 262.5 ml @ 250 mls/hr Q24H IV Last administered on 09/15/17 10:23; Start 09/15/17 at 11:00; Status Future Hold (Nancy Marina MD R2) Urinary Catheter: No (Nancy Marina MD R2) Vascular Central Line Catheter: No (Nancy Marina MD R2) A/P Assessment and Plan Patient is a 42 year old Male with significant PMHx of DM2 with peripheral neuropathy, HTN, GERD, and (CAD and CHF per EMR) who was brought to the ED by EMS after sustaining a fall and possible seizure at home. On admission pt found to meet sepsis criteria HR-119, WBC-13.2, Lactic acid- 3.5, BP- 81/51 with suspected bacteremia of unknown infection source. Pt admitted for further workup of seizure and sepsis management, and found to have significant troponin elevation. Discharge Planning Unclear, likely to be discharged to rehabilitation facility but workup still in progress. Is currently under medical management for meeting sepsis criteria on admission, elevated troponin on admission, seizure workup. (Nancy Marina MD R2) Attending Attestation See the residents documentation for details. I saw and evaluated the patient regarding the ram portions of this evaluation and agree with the residents findings and plans as written. (Amparo Mondragon MD) Problem List: (1) Seizure ICD Codes: R56.9 - Unspecified convulsions Status: Acute Plan: Patient is reported to have had seizures at home with non-witnessed in the hospital. So far workup is negative for active seizure activity. Continue to monitor with neuro checks as below, neurology is following, not recommending medications at this time Hospital course: * Normal Head CT * Abdomen/pelvis CT: No evidence of acute visceral injury. Loops of nondilated but mildly prominent small bowel which may represent a mild ileus. Moderate to large amount of stool in the distal colon. * neurology consulted * EEG showing no epileptiform activity but this does not exclude epilepsy * Brain MRI: Mild periventricular T2 white matter small vessel changes out of proportion for age * Head MRA: Unremarkable study * UDS positive for cocaine, possible that cocaine and other undetected drug exposures could have caused symptoms * Neuro checks Q4h, Telemetry * Mother who witnessed fall/seizure has not been available at bedside * Gabapentin initiated at 300mg hs on 09/14/17 for neuropathy, titrating up on to 300mg TID with goal up to 1800mg TID as tolerated. Will decrease if needed. This has dual anticonvulsant activity so is ideal medication for his neuropathic symptoms (2) Sepsis ICD Codes: A41.9 - Sepsis, unspecified organism Status: Acute Plan: Resolving. Hospital Course: On admission pt found to meet sepsis criteria on admission HR-119, WBC-13.2, Lactic acid- 3.5, BP- 81/51 with suspected bacteremia of unknown infection source. Continues to have tachycardia but leukocytosis resolved. Lactic acid overall decreasing * one aerobic bottle of blood cultures--> gram positive cocci, pending cx and susceptibility * Repeat cultures pending 09/16/17 due to fever 102.2F * Stool cultures ending. C. difficile was negative. * Continue IVF * Continue Zosyn and vancomycin for presumptive sepsis bacteremia (start date ) * Repeat lactic acid showing mildly increase, will monitor. Likely related to cardiac stress versus seizure (3) Anemia ICD Codes: D64.9 - Anemia, unspecified Status: Acute Plan: Chronic anemia with acute blood loss anemia during heparin drip for troponin elevation. * Heparin drip stopped * H&H is decreased to 8.4 today, repeat H&H pending this morning, will transfuse for hemoglobin less than 8, patient agrees, type and screen ordered and 2 units reserved * Hemoccult was positive * Heparin-induced thrombocytopenia workup initiated (4) Diarrhea ICD Codes: R19.7 - Diarrhea, unspecified Status: Acute Plan: Diarrhea is chronic greater than 3 months duration and not likely infectious at this time. C. difficile was negative. Stool culture pending. * Loperamide 4 mg PO 1 given this morning * We'll continue loperamide 2 mg PO when necessary (after loose stool) with max dose 16 mg in 24 hours (5) Troponin level elevated ICD Codes: R74.8 - Abnormal levels of other serum enzymes Status: Acute Plan: Improving. Hospital course: * Possibly related to recent cocaine use. * PE workup (VQ scan) showing low probability for PE. * Heparin gtt initiated 09/14 and therapeutic, discontinued 09/16 due to Hemoccult -positive stools and presumptive acute blood loss anemia * Troponin 0.02 on admission, then >5. Now downtrending, most recently 0.7 on . Will continue to trend. * No chest pain or shortness of breath but will monitor for new symptoms. * Cardiology consulted and following. Likely will consider medical management given current clinical data (6) CAD (coronary artery disease) ICD Codes: I25.10 - Atherosclerotic heart disease of [place] coronary artery without angina pectoris Status: Acute Plan: Unclear CAD history. Patient denies. He did have a recent negative stress test. -Pt placed on cardiac monitoring -Pt denies CP -Cardiology consultation appreciated (7) CHF (congestive heart failure) ICD Codes: I50.9 - Heart failure, unspecified Status: Chronic Plan: Unclear CHF history. Patient denies. No fluid overload clinically. -BNP normal -Echo showing EF 55-60% and otherwise unremarkable -Pt placed on cardiac monitoring (8) Diabetes ICD Codes: E11.9 - Type 2 diabetes mellitus without complications Status: Chronic Plan: Uncontrolled, A1c 10.5 on 09/14/17. He was on metformin intermittently at home. Supplemental NovoLog requirements over the last 24 hours equals 4 units. Given high A1c this is likely due to decreased oral intake in the hospital. He will likely require outpatient management with possible long-acting insulin initiation. Hospital course: Pt was found to be hyperglycemic 400s, received 8 units of insulin in the ED -A1c in Jun was >10 suggesting poor glycemic control -A1c this hospital stay 10.5 -pt does not take diabetic medication at home due to lack of insurance coverage for medications -pt placed on low dose SSI, require minimal-moderate supplementation (9) FELICITAS (acute kidney injury) ICD Codes: N17.9 - Acute kidney failure, unspecified Status: Acute Plan: History of FELICITAS on previous hospitalization. Given uncontrolled DM suspect element of CKD though he had normal creatinine in June 2017. * Monitor BMP * IVF * Avoid nephrotoxic agents (10) Frailty ICD Codes: R54 - Age-related physical debility Status: Chronic Plan: -Physical therapy order placed -Seizure precautions -OOB with assistance only -Case management order placed. 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: Chronic Plan: Tonopen pressure of 20mmHg in R eye, taken by ED physician -consider further workup or ophthalmology consult if symptomatic, but pt states it is chronic (since January 2017) -MRI as above (12) Pain ICD Codes: R52 - Pain, unspecified Status: Chronic Plan: Continue pain regimen Hospital Course: * Hx of chronic pain pt on [place] * Xrays shoulder on admission negative * CT cervical spine negative for fracture on admission * CT abdomen pelvis negative for fracture on admission * Acetaminophen 650mg q4hr pain 1-2, Morphine 2mg IV q3hr for for pain 3-5, Morphine 2mg IV q3hr for pain 6-10 * PT and OT pending (13) Cocaine abuse ICD Codes: F14.10 - Cocaine abuse, uncomplicated Status: Chronic Plan: As above (14) Nutrition, metabolism, and development symptoms ICD Codes: R63.8 - Other symptoms and signs concerning food and fluid intake Status: Acute Plan: Fluids: 100mls/hr NS Electrolyte: hypoK on admission, resolved; replete as needed Nutrition: heart healthy diet DVT ppx: SCDs, Heparin gtt held 09/16/17 for H&H acute drop (Nancy Marina MD R2) Problem Qualifiers (1) Diarrhea: Qualified Codes: R19.7 - Diarrhea, unspecified Nancy Marina MD R2 Sep 16, 2017 10:01 Amparo Mondragon MD Sep 16, 2017 12:13
[2017-09-16] MEDS ORDERED: LOPERAMIDE HCL 2 MG CAP PO PRN (10:15)
[2017-09-16 11:40] LABS: HEMATOCRIT 24.1 % (39.0-51.0)
[2017-09-16] MEDS: GABAPENTIN 300 MG CAP PO SCH ×2 (12:52→17:51)
--- NOTE | 2017-09-16 13:25 | PD.CARD.PN ---
Subjective Subjective Remarks No chest pain/SOB Objective Medications Current Medications Medications (Trade) Dose Ordered Sig/Abbi Route Start Time Stop Time Status Last Admin Sodium Chloride 1,000 ml @ 100 mls/hr Q10H IV 09/14/17 00:42 09/16/17 12:42 (NS Flush) 2 ml UNSCH PRN IV FLUSH 09/14/17 00:45 (NS Flush) 2 ml BID IV FLUSH 09/14/17 09:00 09/16/17 08:20 (Tylenol) 650 mg Q4H PRN PO 09/14/17 00:45 09/16/17 04:01 (Zofran Inj) 4 mg Q6H PRN IVP 09/14/17 00:45 09/15/17 13:54 (Narcan Inj) 0.4 mg UNSCH PRN IV PUSH 09/14/17 00:45 (Milk Of Magnesia Liq) 30 ml Q12H PRN PO 09/14/17 00:45 (Senokot) 17.2 mg Q12H PRN PO 09/14/17 00:45 (Dulcolax Supp) 10 mg DAILY PRN RECTAL 09/14/17 00:45 (Lactulose Liq) 30 ml DAILY PRN PO 09/14/17 00:45 (Morphine Inj) 2 mg Q3H PRN IV 09/14/17 01:00 09/15/17 04:13 (Morphine Inj) 4 mg Q3H PRN IV PUSH 09/14/17 00:45 09/15/17 20:17 Pharmacy Profile Note 0 ml @ 0 mls/hr UNSCH OTHER 09/14/17 01:00 Piperacillin Sod/ Tazobactam Sod 50 ml @ 100 mls/hr Q6H IV 09/14/17 06:00 09/16/17 12:53 (NovoLOG SUPPLEMENTAL SCALE) 1 ACHS SLIDING SCALE SQ 09/14/17 08:00 09/16/17 08:20 (Ativan Inj) 2 mg UNSCH PRN IV PUSH 09/14/17 01:00 (Catapres) 0.1 mg Q6H PRN PO 09/14/17 17:45 Vancomycin HCl 1250 mg/Sodium Chloride 262.5 ml @ 250 mls/hr Q24H IV 09/15/17 11:00 Future Hold 09/15/17 10:23 Sodium Chloride 250 ml @ 15 mls/hr ONCE ONCE IV 09/16/17 07:15 09/16/17 23:54 (Tylenol) 650 mg Q4H PRN PO 09/16/17 07:15 09/16/17 23:59 (Benadryl) 25 mg Q4H PRN PO 09/16/17 07:15 09/16/17 23:59 (Protonix) 40 mg DAILY PO 09/16/17 09:45 (Neurontin) 300 mg TID PO 09/16/17 09:45 09/16/17 12:52 (Imodium) 2 mg UNSCH PRN PO 09/16/17 10:15 Vital Signs / I&O Vital Signs Date Time Temp Pulse Resp B/P (MAP) Pulse Ox O2 Delivery O2 Flow Rate FiO2 09/16/17 12:30 98.1 105 18 112/73 (86) 94 09/16/17 12:30 105 09/16/17 11:00 104 09/16/17 10:00 90 09/16/17 09:00 100 09/16/17 08:20 98.1 91 18 113/75 (88) 18 09/16/17 08:00 102 09/16/17 07:00 108 09/16/17 06:00 102 09/16/17 05:00 102.2 122 18 137/80 (99) 94 09/16/17 05:00 100 09/16/17 04:00 120 09/16/17 03:00 118 09/16/17 02:00 117 09/16/17 01:01 117 09/16/17 00:00 120 09/16/17 00:00 100.0 121 18 103/64 (77) 94 09/15/17 23:00 115 09/15/17 22:00 118 09/15/17 21:00 116 09/15/17 20:00 116 09/15/17 20:00 101.0 121 18 111/73 (86) 98 09/15/17 19:00 114 09/15/17 18:00 116 09/15/17 16:00 99.4 121 18 100/68 (79) 94 09/15/17 16:00 121 09/15/17 14:00 122 I/O 11/4/17 1109/15/17 09/16/17 09/16/17 09/16/17 07:00 15:00 23:00 07:00 15:00 23:00 Intake Total 340 ml 1312.5 ml 1828 ml 240 ml Output Total 280 ml 475 ml Balance 60 ml 1312.5 ml 1828 ml -235 ml Intake Oral 240 ml 960 ml 240 ml IV Total 100 ml 1312.5 ml 868 ml Output Urine Total 280 ml 475 ml # Voids 3 # Bowel Movements 1 1 6 Physical Exam GENERAL: Frail, AAOx3 SKIN: Warm and dry. HEAD: Atraumatic. Normocephalic. EYES: EMOI ENT: No nasal bleeding or discharge. Mucous membranes pink and moist. NECK: Trachea midline. No JVD. CARDIOVASCULAR: Regular rate and rhythm. RESPIRATORY: No accessory muscle use. Clear to auscultation. Breath sounds equal bilaterally. GASTROINTESTINAL: Abdomen soft, non-tender, nondistended. Hepatic and splenic margins not palpable. MUSCULOSKELETAL: Extremities without clubbing, cyanosis, or edema. No obvious deformities. NEUROLOGICAL: Awake and alert. No obvious cranial nerve deficits. Motor grossly within normal limits. Five out of 5 muscle strength in the arms and legs. Normal speech. PSYCHIATRIC: Appropriate mood and affect; insight and judgment normal. Laboratory Laboratory Tests Test 09/15/17 19:28 09/16/17 03:40 09/16/17 05:47 09/16/17 05:57 Activated Partial Thromboplast Time 52.6 SEC 48.6 SEC Stool C. difficile Toxin (PCR) NEGATIVE Stl C. difficile Toxin Epiderm 027 PRESUMPTIVE NEGATIVE Blood Urea Nitrogen 27 MG/DL Creatinine 1.76 MG/DL Random Glucose 189 MG/DL Total Protein 5.8 GM/DL Albumin 2.2 GM/DL Calcium Level 7.9 MG/DL Alkaline Phosphatase 176 U/L Aspartate Amino Transf (AST/SGOT) 34 U/L Alanine Aminotransferase (ALT/SGPT) 28 U/L Total Bilirubin 0.4 MG/DL Sodium Level 135 MEQ/L Potassium Level 4.0 MEQ/L Chloride Level 107 MEQ/L Carbon Dioxide Level 16.9 MEQ/L Anion Gap 11 MEQ/L Estimat Glomerular Filtration Rate 42 ML/MIN Troponin I 0.75 NG/ML White Blood Count 10.9 TH/MM3 Red Blood Count 2.71 MIL/MM3 Hemoglobin 8.3 GM/DL Hematocrit 25.1 % Mean Corpuscular Volume 92.7 FL Mean Corpuscular Hemoglobin 30.6 PG Mean Corpuscular Hemoglobin Concent 33.0 % Red Cell Distribution Width 15.5 % Platelet Count 162 TH/MM3 Mean Platelet Volume 8.0 FL Neutrophils (%) (Auto) 75.2 % Lymphocytes (%) (Auto) 13.5 % Monocytes (%) (Auto) 10.1 % Eosinophils (%) (Auto) 0.5 % Basophils (%) (Auto) 0.7 % Neutrophils # (Auto) 8.2 TH/MM3 Lymphocytes # (Auto) 1.5 TH/MM3 Monocytes # (Auto) 1.1 TH/MM3 Eosinophils # (Auto) 0.1 TH/MM3 Basophils # (Auto) 0.1 TH/MM3 CBC Comment DIFF FINAL Differential Comment D-Dimer Quantitative (PE/DVT) 7.93 MG/L FEU B-Type Natriuretic Peptide 188 PG/ML Test 09/16/17 06:08 09/16/17 11:03 Lactic Acid Level 2.8 mmol/L Hemoglobin 8.0 GM/DL Hematocrit 24.1 % Imaging Last 24 hours Impressions Chest X-Ray 09/16/17 0000 Signed Impressions: Service Date/Time: Saturday, September 16, 2017 06:02 - CONCLUSION: No acute cardiopulmonary disease identified. Alex Russell MD Assessment and Plan Problem List: (1) Troponin level elevated ICD Codes: R74.8 - Abnormal levels of other serum enzymes Status: Acute (2) Cocaine abuse ICD Codes: F14.10 - Cocaine abuse, uncomplicated Status: Chronic (3) CHF (congestive heart failure) ICD Codes: I50.9 - Heart failure, unspecified Status: Chronic (4) New onset seizure ICD Codes: R56.9 - Unspecified convulsions Status: Acute (5) Diabetes ICD Codes: E11.9 - Type 2 diabetes mellitus without complications Status: Chronic (6) Frailty ICD Codes: R54 - Age-related physical debility Status: Chronic Assessment and Plan 1) Elevated troponin Unsure of cause, no symptoms other than syncopal episode 2) ?Seizure activity 3) Cocaine abuse Possible spasm, arrhythmia, and accelerated arthrosclerosis 4) Con't medical management Not a cath candidate at this time Heme positive stool and continual drop in Hgb Agree with stopping heparin Michael Holland DO Sep 16, 2017 13:25
[2017-09-16 17:49] LABS: HEMATOCRIT 23.7 % (39.0-51.0)
[2017-09-17] VITALS (23 sets, daily range): BP systolic 127–177; BP diastolic 68–102; PULSE 82–106; RESP 16–20; TEMP 98.2–99.8; O2SAT 95–97
[2017-09-17] MEDS: PIPERACIL-TAZO 3.375 GM PREMIX 50 ML IV SCH ×4 (01:04→18:16)
[2017-09-17] MEDS: SODIUM CHLOR 0.9% 1000 ML INJ 1,000 ML IV SCH ×3 (05:01→18:18)
[2017-09-17] MEDS: ACETAMINOPHEN 325 MG TAB PO PRN ×2 (05:17→10:02)
[2017-09-17 07:11] LABS: AUTOMATED NEUTROPHIL # 5.7 TH/MM3 (1.8-7.7); BASOPHIL # 0.1 TH/MM3 (0-0.2); BASOPHIL % 1.1 % (0.0-2.0); EOSINOPHIL # 0.2 TH/MM3 (0-0.4); EOSINOPHIL % 2.4 % (0.0-4.0); HEMATOCRIT 23.8 % (39.0-51.0); LYMPH % 13.8 % (9.0-44.0); MEAN CELL VOLUME 91.6 FL (80.0-100.0); MEAN CORPUSCULAR HEMOGLOBIN 30.8 PG (27.0-34.0); MEAN CORPUSCULAR HGB CONC 33.6 % (32.0-36.0); MONO % 7.5 % (0.0-8.0); MONOCYTE # 0.6 TH/MM3 (0-0.9); NEUT % 75.2 % (16.0-70.0); PLATELET COUNT 166 TH/MM3 (150-450); RED CELL DISTRIBUTION WIDTH 15.1 % (11.6-17.2); WHITE BLOOD COUNT 7.5 TH/MM3 (4.0-11.0)
[2017-09-17 07:39] LABS: ALBUMIN 1.9 GM/DL (3.4-5.0); AST (GOT) 17 U/L (15-37); BICARBONATE 19.5 MEQ/L (21.0-32.0); BLOOD UREA NITROGEN 17 MG/DL (7-18); CALCIUM 7.6 MG/DL (8.5-10.1); CHLORIDE 108 MEQ/L (98-107); CREATININE 1.29 MG/DL (0.60-1.30); GLOMERULAR FILTRATION RATE 61 ML/MIN (>89); GLUCOSE,RANDOM 119 MG/DL (74-106); MAGNESIUM 1.4 MG/DL (1.5-2.5); SODIUM (NA) 137 MEQ/L (136-145)
[2017-09-17 07:43] LABS: ALKALINE PHOSPHATASE 120 U/L (45-117); ALT (GPT) 17 U/L (12-78); PHOSPHORUS 1.9 MG/DL (2.5-4.9); RANDOM VANCOMYCIN 7.8 COMMENT; TOTAL BILIRUBIN ADULT 0.3 MG/DL (0.2-1.0); TROPONIN I 0.44 NG/ML (0.02-0.05)
[2017-09-17] MEDS: INSULIN ASPART SUPPLEMENTAL SCALE SQ SCH ×4 (08:00→21:00)
[2017-09-17] MEDS: SODIUM CHLORIDE 0.9% FLUSH 10 ML FLUSH IV FLUSH SCH ×2 (09:00→21:00)
[2017-09-17] MEDS: PANTOPRAZOLE SOD 40 MG DELAYED RELEASE TAB PO SCH ×2 (09:00→10:02)
[2017-09-17] MEDS: GABAPENTIN 300 MG CAP PO SCH ×3 (10:02→18:00)
[2017-09-17] MEDS ORDERED: PHARMACY ORDERED LAB ONE (10:45)
--- NOTE | 2017-09-17 13:31 | HHI.FPPN ---
Subjective Remarks Pt is feeling a little better today, but still has right shoulder pain and complains of poor appetite due to nausea which has been persistent for over 6 months now. He complains about pain and decreased vision in his right eye which has been persistent since January. Denies CP, SOB, V/D and DVT pain. (Avelino Hendricks MD R1) Objective Vitals Vital Signs Date Time Temp Pulse Resp B/P (MAP) Pulse Ox O2 Delivery O2 Flow Rate FiO2 09/17/17 11:12 18 09/17/17 08:00 99.8 96 18 132/68 (89) 97 09/17/17 06:00 90 09/17/17 05:00 102 09/17/17 04:00 96 09/17/17 03:00 106 09/17/17 03:00 101 16 127/85 (99) 95 09/17/17 02:00 98 09/17/17 01:00 104 09/17/17 00:00 106 09/16/17 23:00 92 09/16/17 23:00 99.7 105 16 130/90 (103) 94 09/16/17 22:00 96 09/16/17 21:00 96 09/16/17 20:06 98.9 100 16 127/83 (98) 96 09/16/17 20:00 96 09/16/17 19:00 100 09/16/17 18:05 105 09/16/17 17:52 102 09/16/17 17:13 Nasal Cannula 1.50 09/16/17 16:12 96 09/16/17 15:36 99.0 100 18 115/74 (88) 94 09/16/17 14:36 Nasal Cannula 1.50 09/16/17 14:12 107 I/O 09/16/17 09/16/17 09/16/17 09/17/17 09/17/17 09/17/17 07:00 15:00 23:00 07:00 15:00 23:00 Intake Total 240 ml 480 ml 2448 ml Output Total 475 ml 300 ml 450 ml Balance -235 ml 180 ml 1998 ml Intake Oral 240 ml 480 ml 480 ml IV Total 1968 ml Output Urine Total 475 ml 300 ml 450 ml # Bowel Movements 6 1 1 (Avelino Hendricks MD R1) Result Diagram: 09/17/1755 09/17/17 0655 Objective Remarks GENERAL: This is a thin cachetic patient in no apparent distress. He is resting comfortably with nasal cannula in place. SKIN: Longitudinal laceration scab noted along right lateral forearm that is c/d /i. No rashes. Cool and dry. HEAD: Atraumatic. Normocephalic. MMM. EYES: Right pupil enlarged compared to Left, not reactive to light, no consensual pupillary response noted on Left eye. Right eye scleral injection. Left pupil is reactive to light, no consensual response noted on Right eye. Extraocular motions intact. No scleral icterus. No drainage. Right eye mildly injected. ENT: Nose without bleeding or drainage. Throat without erythema, tonsillar hypertrophy or exudate. Uvula midline. Airway patent. NECK: Trachea midline. No lymphadenopathy. Supple, nontender, no meningeal signs. Limited range of motion to left side of neck due to pain. CARDIOVASCULAR: Regular rate and rhythm without murmurs, gallops, or rubs. RESPIRATORY: Clear to auscultation. Breath sounds equal bilaterally. No wheezes , rales, or rhonchi. GASTROINTESTINAL: Abdomen soft, non-tender, nondistended. No hepato-splenomegaly , or palpable masses. No guarding. Normal BS. MUSCULOSKELETAL: Extremities without clubbing, cyanosis, or edema. Left shoulder tenderness. No effusion, or edema noted. No calf tenderness. NEUROLOGICAL: Awake and alert. Cranial nerves II through XII intact aside from right eye abnormalities noted above. Motor and sensory grossly within normal limits. Five out of 4/5 muscle strength in all muscle groups except right arm 3/ 5. Normal speech. (Avelino Hendricks MD R1) Urinary Catheter: No (Avelino Hendricks MD R1) Vascular Central Line Catheter: No (Avelino Hendricks MD R1) A/P Assessment and Plan Patient is a 42 year old Male with significant PMHx of DM2 with peripheral neuropathy, HTN, GERD, and (CAD and CHF per EMR) who was brought to the ED by EMS after sustaining a fall and possible seizure at home. On admission pt found to meet sepsis criteria HR-119, WBC-13.2, Lactic acid- 3.5, BP- 81/51 with suspected bacteremia of unknown infection source. Pt admitted for further workup of seizure and sepsis management, and found to have significant troponin elevation. 11/6 - Labs normalizing: Troponin 0.44, lactate 0.5; Hgb stable at 8.0; Cr 1.29 Discharge Planning Unclear, likely to be discharged to rehabilitation facility but workup still in progress. Is currently under medical management for meeting sepsis criteria on admission, elevated troponin on admission, seizure workup. (Avelino Hendricks MD R1) Attending Attestation Patient seen and examined. Case reviewed and discussed with the resident team. Agree with plan of care as discussed with me and documented in the resident note. (Amparo Mondragon MD) Problem List: (1) Seizure ICD Codes: R56.9 - Unspecified convulsions Status: Acute Plan: Patient is reported to have had seizures at home with non-witnessed in the hospital. So far workup is negative for active seizure activity. Continue to monitor with neuro checks as below, neurology is following, not recommending medications at this time Hospital course: * Normal Head CT * Abdomen/pelvis CT: No evidence of acute visceral injury. Loops of nondilated but mildly prominent small bowel which may represent a mild ileus. Moderate to large amount of stool in the distal colon. * neurology consulted * EEG showing no epileptiform activity but this does not exclude epilepsy * Brain MRI: Mild periventricular T2 white matter small vessel changes out of proportion for age * Head MRA: Unremarkable study * UDS positive for cocaine, possible that cocaine and other undetected drug exposures could have caused symptoms * Neuro checks Q4h, Telemetry * Mother who witnessed fall/seizure has not been available at bedside * Gabapentin initiated at 300mg hs on 09/14/17 for neuropathy, titrating up on to 300mg TID with goal up to 1800mg TID as tolerated. Will decrease if needed. This has dual anticonvulsant activity so is ideal medication for his neuropathic symptoms (2) Sepsis ICD Codes: A41.9 - Sepsis, unspecified organism Status: Acute Plan: Resolving. Hospital Course: On admission pt found to meet sepsis criteria on admission HR-119, WBC-13.2, Lactic acid- 3.5, BP- 81/51 with suspected bacteremia of unknown infection source. Continues to have tachycardia but leukocytosis resolved. Lactic acid overall decreasing * one aerobic bottle of blood cultures--> gram positive cocci, pending cx and susceptibility * Repeat cultures 09/16/17 due to fever 102.2F NGTD x1 day * Stool cultures ending. C. difficile was negative. * Continue IVF * Continue Zosyn and vancomycin for presumptive sepsis bacteremia (start date ) * Repeat lactic acid today 0.5 and trending downward; elevation likely 2/2 cardiac ischemia vs sepsis (3) Anemia ICD Codes: D64.9 - Anemia, unspecified Status: Acute Plan: Chronic anemia with acute blood loss anemia during heparin drip for troponin elevation. * Heparin drip stopped * H&H is stable at 8.0 and pt is asymptomatic; will transfuse if pt symptomatic and Hgb <8.0, or transfuse if pt asymptomatic and Hgb <7.0; patient has consented; type and screen ordered and 2 units reserved * Hemoccult was positive * Heparin-induced thrombocytopenia workup pending (4) Diarrhea ICD Codes: R19.7 - Diarrhea, unspecified Status: Acute Plan: Diarrhea is chronic greater than 3 months duration and not likely infectious at this time. C. difficile negative, Heme occult positive. * Continue loperamide 2 mg PO when necessary (after loose stool) with max dose 16 mg in 24 hours * Pt has hx of colitis with abnormal GI path report from Nov/Dec 2016 (5) Troponin level elevated ICD Codes: R74.8 - Abnormal levels of other serum enzymes Status: Acute Plan: Improving. Hospital course: * Likely related to recent cocaine use. * PE workup (VQ scan) showing low probability for PE. * Heparin gtt initiated 09/14 and therapeutic, discontinued 09/16 due to Hemoccult -positive stools and presumptive acute blood loss anemia * Troponin 0.02 on admission, then >5. Now downtrending, most recently 0.45 this morning. * No chest pain or shortness of breath but will monitor for new symptoms. * Cardiology consulted and decision made not to cath. Likely will consider medical management given current clinical data * Transferring off [facility] to Med-Surg (6) CAD (coronary artery disease) ICD Codes: I25.10 - Atherosclerotic heart disease of [place] coronary artery without angina pectoris Status: Acute Plan: Unclear CAD history. Patient denies. He did have a recent negative stress test. -Pt placed on cardiac monitoring -Pt denies CP -Cardiology consultation evaluated and determined no cath needed and to continue medical mgmt/supportive care (7) CHF (congestive heart failure) ICD Codes: I50.9 - Heart failure, unspecified Status: Chronic Plan: Unclear CHF history. Patient denies. No fluid overload clinically. -BNP normal -Echo showing EF 55-60% and otherwise unremarkable -Pt placed on cardiac monitoring (8) Diabetes ICD Codes: E11.9 - Type 2 diabetes mellitus without complications Status: Chronic Plan: Uncontrolled, A1c 10.5 on 09/14/17. He was on metformin intermittently at home. Supplemental NovoLog requirements over the last 24 hours equals 4 units. Given high A1c this is likely due to decreased oral intake in the hospital. He will likely require outpatient management with possible long-acting insulin initiation. Hospital course: Pt was found to be hyperglycemic 400s, received 8 units of insulin in the ED -A1c in Jun was >10 suggesting poor glycemic control -A1c this hospital stay 10.5 -pt does not take diabetic medication at home due to lack of insurance coverage for medications -pt placed on low dose SSI, require minimal-moderate supplementation (9) FELICITAS (acute kidney injury) ICD Codes: N17.9 - Acute kidney failure, unspecified Status: Acute Plan: History of FELICITAS on previous hospitalization. Given uncontrolled DM suspect element of CKD though he had normal creatinine in June 2017. * Monitor BMP * IVF * Avoid nephrotoxic agents * Cr down from 1.76->1.29 (10) Frailty ICD Codes: R54 - Age-related physical debility Status: Chronic Plan: -Physical therapy order placed -Seizure precautions -OOB with assistance only -Case management order placed. 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: Chronic Plan: Tonopen pressure of 20mmHg in R eye, taken by ED physician -consider further workup or ophthalmology consult if symptomatic, but pt states it is chronic (since January 2017) -MRI as above (12) Pain ICD Codes: R52 - Pain, unspecified Status: Chronic Plan: Continue pain regimen Hospital Course: * Hx of chronic pain pt on [place] * Xrays shoulder on admission negative * CT cervical spine negative for fracture on admission * CT abdomen pelvis negative for fracture on admission * Acetaminophen 650mg q4hr pain 1-2, Morphine 2mg IV q3hr for for pain 3-5, Morphine 2mg IV q3hr for pain 6-10 * PT and OT pending (13) Cocaine abuse ICD Codes: F14.10 - Cocaine abuse, uncomplicated Status: Chronic Plan: As above (14) Nutrition, metabolism, and development symptoms ICD Codes: R63.8 - Other symptoms and signs concerning food and fluid intake Status: Acute Plan: Fluids: 100mls/hr NS Electrolyte: hypoK on admission, resolved; replete as needed Nutrition: heart healthy diet DVT ppx: SCDs, Heparin gtt held 09/16/17 for H&H acute drop (Avelino Hendricks MD R1) Problem Qualifiers (1) Diarrhea: Qualified Codes: R19.7 - Diarrhea, unspecified Avelino Hendricks MD R1 Sep 17, 2017 13:31 Amparo Mondragon MD Sep 17, 2017 15:30
[2017-09-17] MEDS: VANCOMYCIN INJ 1,250 MG in SODIUM CHLOR 0.9% 250 ML INJ 250 ML IV SCH (13:50)
[2017-09-17 15:23] LABS: HEPARIN INDUCED PLATELET AB POSITIVE (NEGATIVE)
--- NOTE | 2017-09-17 22:15 | PD.CARD.PN ---
Subjective Subjective Remarks No chest pain/SOB Objective Medications Current Medications Medications (Trade) Dose Ordered Sig/Abbi Route Start Time Stop Time Status Last Admin Sodium Chloride 1,000 ml @ 100 mls/hr Q10H IV 09/14/17 00:42 09/17/17 18:18 (NS Flush) 2 ml UNSCH PRN IV FLUSH 09/14/17 00:45 (NS Flush) 2 ml BID IV FLUSH 09/14/17 09:00 09/17/17 09:00 (Tylenol) 650 mg Q4H PRN PO 09/14/17 00:45 09/17/17 10:02 (Zofran Inj) 4 mg Q6H PRN IVP 09/14/17 00:45 09/15/17 13:54 (Narcan Inj) 0.4 mg UNSCH PRN IV PUSH 09/14/17 00:45 (Milk Of Magnesia Liq) 30 ml Q12H PRN PO 09/14/17 00:45 (Senokot) 17.2 mg Q12H PRN PO 09/14/17 00:45 (Dulcolax Supp) 10 mg DAILY PRN RECTAL 09/14/17 00:45 (Lactulose Liq) 30 ml DAILY PRN PO 09/14/17 00:45 (Morphine Inj) 2 mg Q3H PRN IV 09/14/17 01:00 09/15/17 04:13 (Morphine Inj) 4 mg Q3H PRN IV PUSH 09/14/17 00:45 09/15/17 20:17 Pharmacy Profile Note 0 ml @ 0 mls/hr UNSCH OTHER 09/14/17 01:00 Piperacillin Sod/ Tazobactam Sod 50 ml @ 100 mls/hr Q6H IV 09/14/17 06:00 09/17/17 18:16 (NovoLOG SUPPLEMENTAL SCALE) 1 ACHS SLIDING SCALE SQ 09/14/17 08:00 09/16/17 08:20 (Ativan Inj) 2 mg UNSCH PRN IV PUSH 09/14/17 01:00 (Catapres) 0.1 mg Q6H PRN PO 09/14/17 17:45 (Protonix) 40 mg DAILY PO 09/16/17 09:45 09/17/17 09:00 (Neurontin) 300 mg TID PO 09/16/17 09:45 09/17/17 18:00 (Imodium) 2 mg UNSCH PRN PO 09/16/17 10:15 Vancomycin HCl 1250 mg/Sodium Chloride 262.5 ml @ 250 mls/hr Q24H IV 09/17/17 12:00 09/17/17 13:50 Miscellaneous Information SPECIFIC LAB TO BE HOLLI... ONCE ONCE .XX 09/20/17 11:45 09/20/17 11:46 Vital Signs / I&O Vital Signs Date Time Temp Pulse Resp B/P (MAP) Pulse Ox O2 Delivery O2 Flow Rate FiO2 09/17/17 21:50 98.4 85 20 177/102 (127) 97 09/17/17 20:00 98.5 82 20 141/86 (104) 95 09/17/17 19:00 92 09/17/17 18:00 90 09/17/17 17:00 94 09/17/17 16:00 98.2 89 18 158/101 (120) 96 09/17/17 16:00 92 09/17/17 15:00 92 09/17/17 14:00 90 09/17/17 13:00 90 09/17/17 12:00 98.7 92 18 151/96 (114) 96 09/17/17 12:00 84 09/17/17 11:12 18 09/17/17 11:00 88 09/17/17 10:00 104 09/17/17 09:00 90 09/17/17 08:00 99.8 96 18 132/68 (89) 97 09/17/17 08:00 90 09/17/17 07:00 90 09/17/17 06:00 90 09/17/17 05:00 102 09/17/17 04:00 96 09/17/17 03:00 106 09/17/17 03:00 101 16 127/85 (99) 95 09/17/17 02:00 98 09/17/17 01:00 104 09/17/17 00:00 106 09/16/17 23:00 92 09/16/17 23:00 99.7 105 16 130/90 (103) 94 I/O 09/16/17 09/16/17 09/16/17 09/17/17 09/17/17 09/17/17 07:00 15:00 23:00 07:00 15:00 23:00 Intake Total 240 ml 480 ml 2448 ml 1980 ml Output Total 475 ml 300 ml 450 ml 600 ml Balance -235 ml 180 ml 1998 ml 1380 ml Intake Oral 240 ml 480 ml 480 ml 480 ml IV Total 1968 ml 1500 ml Output Urine Total 475 ml 300 ml 450 ml 600 ml # Bowel Movements 6 1 1 Physical Exam GENERAL: Frail, AAOx3 SKIN: Warm and dry. HEAD: Atraumatic. Normocephalic. EYES: EMOI ENT: No nasal bleeding or discharge. Mucous membranes pink and moist. NECK: Trachea midline. No JVD. CARDIOVASCULAR: Regular rate and rhythm. RESPIRATORY: No accessory muscle use. Clear to auscultation. Breath sounds equal bilaterally. GASTROINTESTINAL: Abdomen soft, non-tender, nondistended. Hepatic and splenic margins not palpable. MUSCULOSKELETAL: Extremities without clubbing, cyanosis, or edema. No obvious deformities. NEUROLOGICAL: Awake and alert. No obvious cranial nerve deficits. Motor grossly within normal limits. Five out of 5 muscle strength in the arms and legs. Normal speech. PSYCHIATRIC: Appropriate mood and affect; insight and judgment normal. Laboratory Laboratory Tests Test 09/16/17 22:38 09/17/17 06:55 Hemoglobin 8.0 GM/DL 8.0 GM/DL Hematocrit 24.0 % 23.8 % White Blood Count 7.5 TH/MM3 Red Blood Count 2.60 MIL/MM3 Mean Corpuscular Volume 91.6 FL Mean Corpuscular Hemoglobin 30.8 PG Mean Corpuscular Hemoglobin Concent 33.6 % Red Cell Distribution Width 15.1 % Platelet Count 166 TH/MM3 Mean Platelet Volume 8.0 FL Neutrophils (%) (Auto) 75.2 % Lymphocytes (%) (Auto) 13.8 % Monocytes (%) (Auto) 7.5 % Eosinophils (%) (Auto) 2.4 % Basophils (%) (Auto) 1.1 % Neutrophils # (Auto) 5.7 TH/MM3 Lymphocytes # (Auto) 1.0 TH/MM3 Monocytes # (Auto) 0.6 TH/MM3 Eosinophils # (Auto) 0.2 TH/MM3 Basophils # (Auto) 0.1 TH/MM3 CBC Comment DIFF FINAL Differential Comment Prothrombin Time 11.0 SEC Prothromb Time International Ratio 1.0 RATIO Activated Partial Thromboplast Time 32.0 SEC Blood Urea Nitrogen 17 MG/DL Creatinine 1.29 MG/DL Random Glucose 119 MG/DL Total Protein 5.0 GM/DL Albumin 1.9 GM/DL Calcium Level 7.6 MG/DL Phosphorus Level 1.9 MG/DL Magnesium Level 1.4 MG/DL Alkaline Phosphatase 120 U/L Aspartate Amino Transf (AST/SGOT) 17 U/L Alanine Aminotransferase (ALT/SGPT) 17 U/L Total Bilirubin 0.3 MG/DL Sodium Level 137 MEQ/L Potassium Level 3.6 MEQ/L Chloride Level 108 MEQ/L Carbon Dioxide Level 19.5 MEQ/L Anion Gap 10 MEQ/L Estimat Glomerular Filtration Rate 61 ML/MIN Lactic Acid Level 0.5 mmol/L Total Creatine Kinase 50 U/L Troponin I 0.44 NG/ML Procalcitonin 2.85 ng/mL Random Vancomycin Level 7.8 COMMENT Assessment and Plan Problem List: (1) Troponin level elevated ICD Codes: R74.8 - Abnormal levels of other serum enzymes Status: Acute (2) Cocaine abuse ICD Codes: F14.10 - Cocaine abuse, uncomplicated Status: Chronic (3) CHF (congestive heart failure) ICD Codes: I50.9 - Heart failure, unspecified Status: Chronic (4) New onset seizure ICD Codes: R56.9 - Unspecified convulsions Status: Acute (5) Diabetes ICD Codes: E11.9 - Type 2 diabetes mellitus without complications Status: Chronic (6) Frailty ICD Codes: R54 - Age-related physical debility Status: Chronic Assessment and Plan 1) Elevated troponin Unsure of cause, no symptoms other than syncopal episode 2) ?Seizure activity 3) Cocaine abuse Possible spasm, arrhythmia, and accelerated arthrosclerosis 4) Con't medical management Not a cath candidate at this time Heme positive stool and continual drop in Hgb Agree with stopping heparin drip 5) Will see PRN, call with questions Michael Covington DO Sep 17, 2017 22:15
[2017-09-18] VITALS: BP 171/85; PULSE 99; RESP 18; TEMP 98.6; O2SAT 96
[2017-09-18] MEDS: PIPERACIL-TAZO 3.375 GM PREMIX 50 ML IV SCH ×3 (01:35→13:50)
[2017-09-18 04:00] VITALS: BP 170/96; PULSE 96; RESP 20; TEMP 98.9; O2SAT 96
[2017-09-18] MEDS: ACETAMINOPHEN 325 MG TAB PO PRN (04:01)
[2017-09-18] MEDS: SODIUM CHLOR 0.9% 1000 ML INJ 1,000 ML IV SCH (04:02)
[2017-09-18 05:03] VITALS: O2SAT 96
[2017-09-18 08:00] VITALS: BP 170/89; PULSE 88; PULSE 93; RESP 16; TEMP 97.7; O2SAT 97
[2017-09-18] MEDS: INSULIN ASPART SUPPLEMENTAL SCALE SQ SCH ×2 (08:00→12:00)
[2017-09-18] MEDS: SODIUM CHLORIDE 0.9% FLUSH 10 ML FLUSH IV FLUSH SCH (08:21)
[2017-09-18] MEDS: PANTOPRAZOLE SOD 40 MG DELAYED RELEASE TAB PO SCH (08:22)
[2017-09-18] MEDS: GABAPENTIN 300 MG CAP PO SCH ×2 (08:22→13:50)
[2017-09-18] MEDS: LACTOBACILLUS ACIDOPHILUS 1 GM PACKET PO SCH ×2 (08:23→13:50)
[2017-09-18 08:58] LABS: AUTOMATED NEUTROPHIL # 3.8 TH/MM3 (1.8-7.7); BASOPHIL # 0.1 TH/MM3 (0-0.2); BASOPHIL % 1.3 % (0.0-2.0); EOSINOPHIL # 0.2 TH/MM3 (0-0.4); EOSINOPHIL % 2.7 % (0.0-4.0); HEMATOCRIT 25.1 % (39.0-51.0); HEMOGLOBIN 8.7 GM/DL (13.0-17.0); LYMPH % 18.6 % (9.0-44.0); MEAN CELL VOLUME 90.8 FL (80.0-100.0); MEAN CORPUSCULAR HEMOGLOBIN 31.5 PG (27.0-34.0); MEAN CORPUSCULAR HGB CONC 34.7 % (32.0-36.0); MONO % 9.5 % (0.0-8.0); MONOCYTE # 0.5 TH/MM3 (0-0.9); NEUT % 67.9 % (16.0-70.0); PLATELET COUNT 204 TH/MM3 (150-450); RED BLOOD COUNT 2.77 MIL/MM3 (4.50-5.90); RED CELL DISTRIBUTION WIDTH 15.2 % (11.6-17.2); WHITE BLOOD COUNT 5.6 TH/MM3 (4.0-11.0)
[2017-09-18 09:29] LABS: BICARBONATE 21.4 MEQ/L (21.0-32.0); CALCIUM 7.8 MG/DL (8.5-10.1); CREATININE 0.93 MG/DL (0.60-1.30)
[2017-09-18 10:27] LABS: HEPATITIS C AB IgG NEGATIVE (NEGATIVE)
[2017-09-18 10:51] LABS: RPR SCREEN FOR REFLEX NON-REACTIVE (NON-REACTVE)
[2017-09-18 12:00] VITALS: BP 168/97; PULSE 93; RESP 16; TEMP 98.2; O2SAT 96
--- NOTE | 2017-09-18 13:19 | HHI.FPPN ---
Subjective Remarks Pt is feeling a little better. Not as nauseous but isn't eating much. Resolving right sided pain in shoulder, head and arm from his fall. States he is ready to go home today. Denies CP, SOB, V/D, and DVT pain. (Avelino Hendricks MD R1) Objective Vitals Vital Signs Date Time Temp Pulse Resp B/P (MAP) Pulse Ox O2 Delivery O2 Flow Rate FiO2 09/18/17 12:00 98.2 93 16 168/97 (120) 96 09/18/17 08:00 88 09/18/17 08:00 97.7 93 16 170/89 (116) 97 09/18/17 05:03 96 09/18/17 05:01 20 09/18/17 04:00 98.9 96 20 170/96 (120) 96 09/18/17 00:00 98.6 99 18 171/85 (113) 96 09/17/17 22:58 98 09/17/17 21:50 98.4 85 20 177/102 (127) 97 09/17/17 20:00 98.5 82 20 141/86 (104) 95 09/17/17 19:00 92 09/17/17 18:00 90 09/17/17 17:00 94 09/17/17 16:00 98.2 89 18 158/101 (120) 96 09/17/17 16:00 92 09/17/17 15:00 92 09/17/17 14:00 90 I/O 09/17/17 09/17/17 09/17/17 09/18/17 09/18/17 09/18/17 07:00 15:00 23:00 07:00 15:00 23:00 Intake Total 2448 ml 2980 ml 170 ml Output Total 450 ml 600 ml 2400 ml Balance 1998 ml 2380 ml -2230 ml Intake Oral 480 ml 480 ml 120 ml IV Total 1968 ml 2500 ml 50 ml Output Urine Total 450 ml 600 ml 2400 ml # Bowel Movements 1 2 (Avelino Hendricks MD R1) Result Diagram: 09/18/1771809/18/17726 Objective Remarks GENERAL: This is a thin cachetic patient in no apparent distress. He is resting comfortably with nasal cannula in place. SKIN: Longitudinal laceration scab noted along right lateral forearm that is c/d /i. No rashes. Cool and dry. HEAD: Atraumatic. Normocephalic. MMM. EYES: Right pupil enlarged compared to Left, not reactive to light, no consensual pupillary response noted on Left eye. Right eye scleral injection. Left pupil is reactive to light, no consensual response noted on Right eye. Extraocular motions intact. No scleral icterus. No drainage. Right eye mildly injected. ENT: Nose without bleeding or drainage. Throat without erythema, tonsillar hypertrophy or exudate. Uvula midline. Airway patent. NECK: Trachea midline. No lymphadenopathy. Supple, nontender, no meningeal signs. Limited range of motion to left side of neck due to pain. CARDIOVASCULAR: Regular rate and rhythm without murmurs, gallops, or rubs. RESPIRATORY: Clear to auscultation. Breath sounds equal bilaterally. No wheezes , rales, or rhonchi. GASTROINTESTINAL: Abdomen soft, non-tender, nondistended. No hepato-splenomegaly , or palpable masses. No guarding. Normal BS. MUSCULOSKELETAL: Extremities without clubbing, cyanosis, or edema. Left shoulder tenderness. No effusion, or edema noted. No calf tenderness. NEUROLOGICAL: Awake and alert. Cranial nerves II through XII intact aside from right eye abnormalities noted above. Motor and sensory grossly within normal limits. Five out of 4/5 muscle strength in all muscle groups except right arm 3/ 5. Normal speech. Medications and IVs Current Medications Medications (Trade) Dose Ordered Sig/Abbi Route Start Time Stop Time Status Last Admin Sodium Chloride 1,000 ml @ 100 mls/hr Q10H IV 09/14/17 00:42 09/18/17 04:02 (NS Flush) 2 ml UNSCH PRN IV FLUSH 09/14/17 00:45 (NS Flush) 2 ml BID IV FLUSH 09/14/17 09:00 09/17/17 09:00 (Tylenol) 650 mg Q4H PRN PO 09/14/17 00:45 09/18/17 04:01 (Zofran Inj) 4 mg Q6H PRN IVP 09/14/17 00:45 09/15/17 13:54 (Narcan Inj) 0.4 mg UNSCH PRN IV PUSH 09/14/17 00:45 (Milk Of Magnesia Liq) 30 ml Q12H PRN PO 09/14/17 00:45 (Senokot) 17.2 mg Q12H PRN PO 09/14/17 00:45 (Dulcolax Supp) 10 mg DAILY PRN RECTAL 09/14/17 00:45 (Lactulose Liq) 30 ml DAILY PRN PO 09/14/17 00:45 (Morphine Inj) 2 mg Q3H PRN IV 09/14/17 01:00 09/15/17 04:13 (Morphine Inj) 4 mg Q3H PRN IV PUSH 09/14/17 00:45 09/15/17 20:17 Pharmacy Profile Note 0 ml @ 0 mls/hr UNSCH OTHER 09/14/17 01:00 Piperacillin Sod/ Tazobactam Sod 50 ml @ 100 mls/hr Q6H IV 09/14/17 06:00 09/18/17 13:50 (NovoLOG SUPPLEMENTAL SCALE) 1 ACHS SLIDING SCALE SQ 09/14/17 08:00 09/16/17 08:20 (Ativan Inj) 2 mg UNSCH PRN IV PUSH 09/14/17 01:00 (Catapres) 0.1 mg Q6H PRN PO 09/14/17 17:45 (Protonix) 40 mg DAILY PO 09/16/17 09:45 09/18/17 08:22 (Neurontin) 300 mg TID PO 09/16/17 09:45 09/18/17 13:50 (Imodium) 2 mg UNSCH PRN PO 09/16/17 10:15 (Lactinex Pkt) 1 gm TID PO 09/18/17 09:00 09/18/17 13:50 Miscellaneous Information SPECIFIC LAB TO BE DRAWN:VANCO TROUGH DATE TO BE DR... ONCE ONCE .XX 09/19/17 23:45 09/19/17 23:46 Vancomycin HCl 1250 mg/Sodium Chloride 262.5 ml @ 250 mls/hr Q12H IV 09/19/17 00:00 (Avelino Hendricks MD R1) Urinary Catheter: No (Avelino Hendricks MD R1) Vascular Central Line Catheter: No (Avelino Hendricks MD R1) A/P Assessment and Plan Patient is a 42 year old Male with significant PMHx of DM2 with peripheral neuropathy, HTN, GERD, and (CAD and CHF per EMR) who was brought to the ED by EMS after sustaining a fall and possible seizure at home. On admission pt found to meet sepsis criteria HR-119, WBC-13.2, Lactic acid- 3.5, BP- 81/51 with suspected bacteremia of unknown infection source. Pt admitted for further workup of seizure and sepsis management, and found to have significant troponin elevation. 09/17 - Labs normalizing: Troponin 0.44, lactate 0.5; Hgb stable at 8.0; Cr 1.29 09/18 - WBC 5.6, HIV, RPR, HCV neg, one blood cx of 2 on 09/13 positive for Staph Lugenensis; blood cx 09/15 NGTD; Stable with benign physical exam Discharge Planning Home (Avelino Hendricks MD R1) Attending Attestation Patient seen and examined. Case reviewed and discussed with the resident team. Agree with plan of care as discussed with me and documented in the resident note. (Amparo Mondragon MD) Problem List: (1) Seizure ICD Codes: R56.9 - Unspecified convulsions Status: Acute Plan: Patient is reported to have had seizures at home with non-witnessed in the hospital. So far workup is negative for active seizure activity. Continue to monitor with neuro checks as below, neurology is following, not recommending medications at this time Hospital course: * Normal Head CT * Abdomen/pelvis CT: No evidence of acute visceral injury. Loops of nondilated but mildly prominent small bowel which may represent a mild ileus. Moderate to large amount of stool in the distal colon. * neurology consulted * EEG showing no epileptiform activity but this does not exclude epilepsy * Brain MRI: Mild periventricular T2 white matter small vessel changes out of proportion for age * Head MRA: Unremarkable study * UDS positive for cocaine, most likely etiology of sxs * Neuro checks Q4h, Telemetry * Mother who witnessed fall/seizure has not been available at bedside * Gabapentin 300mg TID (2) Sepsis ICD Codes: A41.9 - Sepsis, unspecified organism Status: Acute Plan: Resolving. Hospital Course: On admission pt found to meet sepsis criteria on admission HR-119, WBC-13.2, Lactic acid- 3.5, BP- 81/51 with suspected bacteremia of unknown infection source. Continues to have mild tachycardia but leukocytosis resolved. Lactic acid decreased * one aerobic bottle of blood cultures--> Staph Lugenensis, castillo sensitive except rifampin * Repeat cultures 09/16/17 due to fever 102.2F NGTD x2 days * Stool cultures/C. difficile negative. * Continue IVF * D/C Zosyn and vancomycin for presumptive sepsis bacteremia (start date 09/13/17 ) * Repeat lactic acid 09/17 0.5 and trending downward; elevation likely 2/2 cardiac ischemia vs sepsis (3) Anemia ICD Codes: D64.9 - Anemia, unspecified Status: Acute Plan: Chronic anemia with acute blood loss anemia during heparin drip for troponin elevation. * Heparin drip stopped * H&H is improved to 8.7 and pt is asymptomatic * Hemoccult positive * Heparin-induced thrombocytopenia positive (Heparin was discontinued on 09/15) (4) Diarrhea ICD Codes: R19.7 - Diarrhea, unspecified Status: Acute Plan: Diarrhea is chronic greater than 3 months duration and not likely infectious at this time. C. difficile negative, Heme occult positive. * Continue loperamide 2 mg PO when necessary (after loose stool) with max dose 16 mg in 24 hours * Pt has hx of colitis with abnormal GI path report from Nov/Dec 2016 * Diarrhea resolved on 09/17 prior to discharge (5) Troponin level elevated ICD Codes: R74.8 - Abnormal levels of other serum enzymes Status: Acute Plan: Improving. Hospital course: * Likely related to recent cocaine use. * PE workup (VQ scan) showing low probability for PE. * Heparin gtt initiated 09/14 and therapeutic, discontinued 09/16 due to Hemoccult -positive stools and presumptive acute blood loss anemia * Troponin 0.02 on admission, then >5. Now downtrending, most recently 0.45 on 09/17. * No chest pain or shortness of breath but will monitor for new symptoms. * Cardiology consulted and decision made not to cath. Likely will consider medical management given current clinical data * Transferring off [facility] to Med-Surg (6) CAD (coronary artery disease) ICD Codes: I25.10 - Atherosclerotic heart disease of [place] coronary artery without angina pectoris Status: Acute Plan: Unclear CAD history. Patient denies. He did have a recent negative stress test. -Pt placed on cardiac monitoring -Pt denies CP -Cardiology consultation evaluated and determined no cath needed and to continue medical mgmt/supportive care (7) CHF (congestive heart failure) ICD Codes: I50.9 - Heart failure, unspecified Status: Chronic Plan: Unclear CHF history. Patient denies. No fluid overload clinically. -BNP normal -Echo showing EF 55-60% and otherwise unremarkable -Pt placed on cardiac monitoring (8) Diabetes ICD Codes: E11.9 - Type 2 diabetes mellitus without complications Status: Chronic Plan: Uncontrolled, A1c 10.5 on 09/14/17. He was on metformin intermittently at home. Supplemental NovoLog requirements over the last 24 hours equals 4 units. Given high A1c this is likely due to decreased oral intake in the hospital. He will likely require outpatient management with possible long-acting insulin initiation. Hospital course: Pt was found to be hyperglycemic 400s, received 8 units of insulin in the ED -A1c in Jun was >10 suggesting poor glycemic control -A1c this hospital stay 10.5 -pt does not take diabetic medication at home due to lack of insurance coverage for medications -pt placed on low dose SSI, require minimal-moderate supplementation (9) FELICITAS (acute kidney injury) ICD Codes: N17.9 - Acute kidney failure, unspecified Status: Resolved Plan: Resolving. History of FELICITAS on previous hospitalization. Given uncontrolled DM suspect element of CKD though he had normal creatinine in June 2017. 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 Plan: Tonopen pressure of 20mmHg in R eye, taken by ED physician -consider further workup or ophthalmology consult if symptomatic, but pt states it is chronic (since January 2017) -MRI as above (12) Pain ICD Codes: R52 - Pain, unspecified Status: Chronic Plan: Continue pain regimen Hospital Course: * Hx of chronic pain pt on [place] * Xrays shoulder on admission negative * CT cervical spine negative for fracture on admission * CT abdomen pelvis negative for fracture on admission * Acetaminophen 650mg q4hr pain 1-2, Morphine 2mg IV q3hr for for pain 3-5, Morphine 2mg IV q3hr for pain 6-10 * PT and OT pending (13) Cocaine abuse ICD Codes: F14.10 - Cocaine abuse, uncomplicated Status: Chronic Plan: As above (14) Nutrition, metabolism, and development symptoms ICD Codes: R63.8 - Other symptoms and signs concerning food and fluid intake Status: Acute Plan: Fluids: Discontinue fluids Electrolyte: hypoK on admission, resolved; replete as needed Nutrition: heart healthy diet DVT ppx: SCDs, Heparin gtt held 09/16/17 for H&H acute drop (Avelino Hendricks MD R1) Problem Qualifiers (1) Diarrhea: Qualified Codes: R19.7 - Diarrhea, unspecified Avelino Hendricks MD R1 Sep 18, 2017 13:19 Amparo Mondragon MD Sep 18, 2017 17:36
[2017-09-18] MEDS: VANCOMYCIN INJ 1,250 MG in SODIUM CHLOR 0.9% 250 ML INJ 250 ML IV SCH (14:38)
[2017-09-18] MEDS ORDERED: METF500T PO (14:48)
[2017-09-18] MEDS ORDERED: K-PHTAB PO (14:48)
[2017-09-18] MEDS ORDERED: LACTG PO (14:48)
[2017-09-18] MEDS ORDERED: VITA500012 PO (14:48)
[2017-09-18] MEDS ORDERED: MAGN400T2 PO (14:48)
[2017-09-18] MEDS ORDERED: ATEN50TA PO (14:48)
--- NOTE | 2017-09-18 14:51 | HHI.DCPOC ---
Discharge Care Plan Diagnosis: (1) Seizure (2) Severe sepsis (3) Frailty (4) Anisocoria (5) CAD (coronary artery disease) (6) CHF (congestive heart failure) Goals to Promote Your Health * To prevent worsening of your condition and complications * To maintain your health at the optimal level Directions to Meet Your Goals Take your medications as prescribed Follow your dietary instruction Follow activity as directed Keep your appointments as scheduled Take your immunizations and boosters as scheduled If your symptoms worsen call your PCP, if no PCP go to Urgent Care Center or Emergency Room Smoking is Dangerous to Your Health. Avoid second hand smoke Call the 24-hour hour crisis hotline for domestic abuse at Veronica Ware MD R2 Sep 18, 2017 14:51
--- NOTE | 2017-09-18 14:51 | HHI.DCPOC ---
Discharge Care Plan Diagnosis: (1) Seizure (2) Severe sepsis (3) Frailty (4) Anisocoria (5) CAD (coronary artery disease) (6) CHF (congestive heart failure) Goals to Promote Your Health * To prevent worsening of your condition and complications * To maintain your health at the optimal level Directions to Meet Your Goals Take your medications as prescribed Follow your dietary instruction Follow activity as directed Keep your appointments as scheduled Take your immunizations and boosters as scheduled If your symptoms worsen call your PCP, if no PCP go to Urgent Care Center or Emergency Room Smoking is Dangerous to Your Health. Avoid second hand smoke Call the 24-hour hour crisis hotline for domestic abuse at Veronica Ware MD R2 Sep 18, 2017 14:51
--- NOTE | 2017-09-18 14:51 | HHI.DCPOC ---
Discharge Care Plan Diagnosis: (1) Seizure (2) Severe sepsis (3) Frailty (4) Anisocoria (5) CAD (coronary artery disease) (6) CHF (congestive heart failure) Goals to Promote Your Health * To prevent worsening of your condition and complications * To maintain your health at the optimal level Directions to Meet Your Goals Take your medications as prescribed Follow your dietary instruction Follow activity as directed Keep your appointments as scheduled Take your immunizations and boosters as scheduled If your symptoms worsen call your PCP, if no PCP go to Urgent Care Center or Emergency Room Smoking is Dangerous to Your Health. Avoid second hand smoke Call the 24-hour hour crisis hotline for domestic abuse at Veronica Ware MD R2 Sep 18, 2017 14:51
--- NOTE | 2017-09-18 14:53 | HHI.DS ---
Discharge Summary Admission Date Sep 13, 2017 at 23:38 Discharge Date: Sep 18, 2017 Admitting Diagnosis New onset seizure, uncontrolled diabetes (1) Seizure Diagnosis: Principal ICD Codes: R56.9 - Unspecified convulsions Status: Acute (2) Sepsis Diagnosis: Principal ICD Codes: A41.9 - Sepsis, unspecified organism Status: Acute (3) Frailty Diagnosis: Principal ICD Codes: R54 - Age-related physical debility Status: Chronic (4) CAD (coronary artery disease) Diagnosis: Secondary ICD Codes: I25.10 - Atherosclerotic heart disease of [place] coronary artery without angina pectoris Status: Acute (5) Anemia Diagnosis: Secondary ICD Codes: D64.9 - Anemia, unspecified Status: Acute (6) Diarrhea Diagnosis: Secondary ICD Codes: R19.7 - Diarrhea, unspecified Status: Acute (7) Troponin level elevated Diagnosis: Secondary ICD Codes: R74.8 - Abnormal levels of other serum enzymes Status: Acute (8) CHF (congestive heart failure) Diagnosis: Secondary ICD Codes: I50.9 - Heart failure, unspecified Status: Chronic (9) Diabetes Diagnosis: Secondary ICD Codes: E11.9 - Type 2 diabetes mellitus without complications Status: Chronic (10) FELICITAS (acute kidney injury) ICD Codes: N17.9 - Acute kidney failure, unspecified Status: Resolved (11) Anisocoria Diagnosis: Secondary ICD Codes: H57.02 - Anisocoria Status: Chronic (12) Cocaine abuse Diagnosis: Secondary ICD Codes: F14.10 - Cocaine abuse, uncomplicated Status: Chronic Brief History Patient is a 42 year old Male with significant PMHx of DM2 with peripheral neuropathy, HTN, GERD, and (CAD and CHF per EMR) who was brought to the ED by EMS after sustaining a fall and possible seizure at home. Pt's mother was the main witness but was not at bedside when this HPI was obtained. Pt is a poor historian. Pt stated he went to use the bathroom at home and fell due to leg weakness. Pt stated he felt like his legs "gave out". Denies feeling lightheaded or dizzy before the fall. Denies LOC or hitting his after the fall. Pt reports he had a similar episode occur to him last time he was hospitalized ( 06/2017). Endorses nausea and vomiting x1 in the ED. Pt reports BL hip pain and Left shoulder pain, describes pain as sharp- stabbing pain and rates pain as 8-9 /10. Pt reports that after the fall he tried crawling to his living rm and the next thing he remembers is EMS in his home. Denies biting his tongue. Endorse stool incontinence. Of note per nurse, pt's mother reported pt had 2 seizure-like episodes with foaming at the mouth and jerking movements. Will need to confirm history of incident with pt's mother. Of note pt use dislocated his Left shoulder in January 2017.Denies recently being sick or any sick contacts. Pt ambulates with walker. CBC/BMP: 09/18/17 0719 09/18/17 0727 Significant Findings Laboratory Tests Test 09/15/17 19:28 09/16/17 03:40 09/16/17 05:47 09/16/17 05:57 Activated Partial Thromboplast Time 52.6 SEC (24.3-30.1) 48.6 SEC (24.3-30.1) Blood Urea Nitrogen 27 MG/DL (7-18) Creatinine 1.76 MG/DL (0.60-1.30) Random Glucose 189 MG/DL (74-106) Total Protein 5.8 GM/DL (6.4-8.2) Albumin 2.2 GM/DL (3.4-5.0) Calcium Level 7.9 MG/DL (8.5-10.1) Alkaline Phosphatase 176 U/L (45-117) Sodium Level 135 MEQ/L (136-145) Carbon Dioxide Level 16.9 MEQ/L (21.0-32.0) Estimat Glomerular Filtration Rate 42 ML/MIN (>89) Troponin I 0.75 NG/ML (0.02-0.05) Red Blood Count 2.71 MIL/MM3 (4.50-5.90) Hemoglobin 8.3 GM/DL (13.0-17.0) Hematocrit 25.1 % (39.0-51.0) Neutrophils (%) (Auto) 75.2 % (16.0-70.0) Monocytes (%) (Auto) 10.1 % (0.0-8.0) Neutrophils # (Auto) 8.2 TH/MM3 (1.8-7.7) Monocytes # (Auto) 1.1 TH/MM3 (0-0.9) D-Dimer Quantitative (PE/DVT) 7.93 MG/L FEU (0.00-0.50) B-Type Natriuretic Peptide 188 PG/ML (0-100) Test 09/16/17 06:08 09/16/17 11:03 09/16/17 17:25 09/16/17 22:38 Lactic Acid Level 2.8 mmol/L (0.4-2.0) Hemoglobin 8.0 GM/DL (13.0-17.0) 8.0 GM/DL (13.0-17.0) 8.0 GM/DL (13.0-17.0) Hematocrit 24.1 % (39.0-51.0) 23.7 % (39.0-51.0) 24.0 % (39.0-51.0) Heparin-Induced Platelet Ab ([place]) POSITIVE (NEGATIVE) HIPA Patient Optical Density 0.551 O.D. (0.000-0.300) Test 09/17/17 06:55 09/18/17 07:19 09/18/17 07:27 Red Blood Count 2.60 MIL/MM3 (4.50-5.90) 2.77 MIL/MM3 (4.50-5.90) Hemoglobin 8.0 GM/DL (13.0-17.0) 8.7 GM/DL (13.0-17.0) Hematocrit 23.8 % (39.0-51.0) 25.1 % (39.0-51.0) Neutrophils (%) (Auto) 75.2 % (16.0-70.0) Activated Partial Thromboplast Time 32.0 SEC (24.3-30.1) Random Glucose 119 MG/DL (74-106) Total Protein 5.0 GM/DL (6.4-8.2) Albumin 1.9 GM/DL (3.4-5.0) Calcium Level 7.6 MG/DL (8.5-10.1) 7.8 MG/DL (8.5-10.1) Phosphorus Level 1.9 MG/DL (2.5-4.9) Magnesium Level 1.4 MG/DL (1.5-2.5) Alkaline Phosphatase 120 U/L (45-117) Chloride Level 108 MEQ/L (98-107) Carbon Dioxide Level 19.5 MEQ/L (21.0-32.0) Estimat Glomerular Filtration Rate 61 ML/MIN (>89) 88 ML/MIN (>89) Troponin I 0.44 NG/ML (0.02-0.05) Procalcitonin 2.85 ng/mL (0.00-0.08) Monocytes (%) (Auto) 9.5 % (0.0-8.0) Sodium Level 135 MEQ/L (136-145) Potassium Level 3.2 MEQ/L (3.5-5.1) Imaging Last 72 hours Impressions Chest X-Ray 09/16/17 0000 Signed Impressions: Service Date/Time: Saturday, September 16, 2017 06:02 - CONCLUSION: No acute cardiopulmonary disease identified. Alex Russell MD PE at Discharge GENERAL: This is a thin cachetic patient in no apparent distress. He is resting comfortably with nasal cannula in place. SKIN: Longitudinal laceration scab noted along right lateral forearm that is c/d /i. No rashes. Cool and dry. HEAD: Atraumatic. Normocephalic. MMM. EYES: Right pupil enlarged compared to Left, not reactive to light, no consensual pupillary response noted on Left eye. Right eye scleral injection. Left pupil is reactive to light, no consensual response noted on Right eye. Extraocular motions intact. No scleral icterus. No drainage. Right eye mildly injected. ENT: Nose without bleeding or drainage. Throat without erythema, tonsillar hypertrophy or exudate. Uvula midline. Airway patent. NECK: Trachea midline. No lymphadenopathy. Supple, nontender, no meningeal signs. Limited range of motion to left side of neck due to pain. CARDIOVASCULAR: Regular rate and rhythm without murmurs, gallops, or rubs. RESPIRATORY: Clear to auscultation. Breath sounds equal bilaterally. No wheezes , rales, or rhonchi. GASTROINTESTINAL: Abdomen soft, non-tender, nondistended. No hepato-splenomegaly , or palpable masses. No guarding. Normal BS. MUSCULOSKELETAL: Extremities without clubbing, cyanosis, or edema. Left shoulder tenderness. No effusion, or edema noted. No calf tenderness. NEUROLOGICAL: Awake and alert. Cranial nerves II through XII intact aside from right eye abnormalities noted above. Motor and sensory grossly within normal limits. Five out of 4/5 muscle strength in all muscle groups except right arm 3/ 5. Normal speech. Hospital Course 42 year old male with significant PMHx presented to the ED by EMS after sustaining a fall and possible seizure at home. On admission, he was found to meet sepsis criteria HR-119, WBC-13.2, Lactic acid- 3.5, BP- 81/51 with suspected bacteremia of unknown infection source and was admitted for further workup of seizure and management of sepsis. Neurology was consulted and an EEG was performed which did not demonstrate seizure activity. He was not started on anti-seizure medication at this time. Sepsis was managed with IV Zosyn and vancomycin. Initial blood culture grew Staphylococcus lugdunensis in one aerobic vial. Repeat blood cultures were negative 2 days by the time of discharge. One day after admission, patient was found to have elevated troponin of 5.25. Consequently, cardiology was consulted and initially can see that a cardiac cath but because patient developed heme positive stools with drop in his hemoglobin, the decision was made not to catheterize him. Notably, patient was placed on heparin drip secondary to the elevated troponin but he experienced a progressive drop in his hemoglobin and hematocrit from 12.9/39.8 on admission (09/13) down to 8.0/24.1 on 09/16, prompted discontinuation of the heparin drip. He was later found to have positive heparin-induced platelet antibodies. By the day of discharge, his hemoglobin/hematocrit had improved to 8.7/25.1. He was deemed stable for discharge home on 09/18. He will need follow- up with a primary care provider for optimized management of his chronic medical conditions. Pt Condition on Discharge: Stable Discharge Disposition: Discharge Home Discharge Instructions DIET: Follow Instructions for: Heart Healthy Diet Activities you can perform: Weight Bearing as Angi Follow up Referrals: PCP Follow-up - 1 Week New Medications: Lactobacillus Acidophilus (Floranex) 1 Gm Pkt 1 GM PO TID, #90 GM Continued Medications: Atenolol (Atenolol) 50 Mg Tab 50 MG PO DAILY for Blood Pressure Management for 30 Days, #30 TAB (This prescription has been renewed) Calcium Carbonate (Antacid) (Calcium Carbonate (Antacid)) 500 Mg Chew 500 MG CHEW Q12HR for dyspepsia/hypocalcemia, #30 EA Ergocalciferol (Ergocalciferol) 50,000 Unit Cap 82476 UNITS PO Q7D for Nutritional Supplement, #30 CAP 0 Refills (This prescription has been renewed) Magnesium Oxide (Magnesium Oxide) 400 Mg Tab 400 MG PO DAILY for Nutritional Supplement, #15 TAB 0 Refills (This prescription has been renewed) Metformin (Metformin) 500 Mg Tab 500 MG PO BIDPC for Blood Sugar Management, #60 TAB 0 Refills (This prescription has been renewed) With meals Potassium Phosphate Monobasic (K-Phos) 500 Mg Tab 1000 MG PO Q12HR for low K and Phos, #30 TAB (This prescription has been renewed ) Discontinued Medications: Hydrocodone-Acetaminophen ([place]) 5-325 mg Tab 1 TAB PO Q6HR PRN for PAIN, #14 TAB 0 Refills Veronica Ware MD R2 Sep 18, 2017 14:53
[2017-09-18] MEDS ORDERED: POTASSIUM CHLORIDE 20 MEQ CONTROLLED RELEASE TAB PO ONE (15:00)
[2017-09-18 17:11] VITALS: O2SAT 96
[2017-09-19] MEDS ORDERED: VANCOMYCIN INJ 1,250 MG in SODIUM CHLOR 0.9% 250 ML INJ 250 ML IV SCH ×2
[2017-09-19] MEDS ORDERED: PHARMACY ORDERED LAB ONE (23:45)
[2017-09-20] MEDS ORDERED: PHARMACY ORDERED LAB ONE (11:45)
== END 2017-09-18 17:10 | disposition home or self-care (01) | DRG 872 ==
LOC: NEPE 21:31 → NEDA 23:38 → NEDH 09-14 03:38 → HIMN 09-14 05:50 → HCIS 09-15 18:35 → N07B 09-17 21:23
PROVIDERS: ADMIT Family Medicine; ATTEND Family Medicine
DX: A41.1 Sepsis due to other specified staphylococcus (principal); E87.2 Acidosis; N17.9 Acute kidney failure, unspecified; E11.42 Type 2 diabetes mellitus with diabetic polyneuropathy; I11.0 Hypertensive heart disease with heart failure; I50.9 Heart failure, unspecified; D62 Acute posthemorrhagic anemia; R56.9 Unspecified convulsions; E11.65 Type 2 diabetes mellitus with hyperglycemia; K21.9 Gastro-esophageal reflux disease without esophagitis; M10.9 Gout, unspecified; M79.7 Fibromyalgia; F32.9 Major depressive disorder, single episode, unspecified; M19.90 Unspecified osteoarthritis, unspecified site; I25.10 Atherosclerotic heart disease of native coronary artery without angina pectoris; R00.0 Tachycardia, unspecified; Z96.642 Presence of left artificial hip joint; H57.02 Anisocoria; G89.29 Other chronic pain; E87.6 Hypokalemia; F14.10 Cocaine abuse, uncomplicated; E78.00 Pure hypercholesterolemia, unspecified; H54.7 Unspecified visual loss; D75.82 Heparin induced thrombocytopenia (HIT); M25.512 Pain in left shoulder; R15.9 Full incontinence of feces; R19.7 Diarrhea, unspecified; Z91.14 Patient's other noncompliance with medication regimen
CPT/HCPCS: 70450; 70544; 70551; 71010; 71020; 72125; 73030; 74177; 78582; 80048; 80053; 80202; 80307; 81001; 82272; 82550; 82552; 82805; 82948; 83036; 83605; 83735; 83880; 84100; 84145; 84484; 85014; 85018; 85025; 85027; 85379; 85610; 85730; 86022; 86592; 86703; 86803; 86850; 86900; 86901; 86920; 87040; 87077; 87186; 87205; 87493; 87641; 93005; 93306; 95819; 96361; 96365; 96372; 96375; A9540; A9567; J1644; J1815; J1885; J2270; J2405; J2543; J3370; J7030; J7050; Q9967

== ENCOUNTER → 2018-03-06 | Day surgery (SDC) | payer OTHER ==
[~2018-03-06] MED LIST changes: +ATROPINE SULFATE 1% OPHT SOLN 2 ML BTL ONE; -CANA10002 RECTAL; -CREON24 PO; +DEXAMETHASONE SOD PHOS 4 MG/ML VIAL ONE; +DEXTROSE 50% IN WATER 50 ML SYRINGE ONE; +EPINEPHrine HCL (1:1000) 1 MG/ML VIAL ONE; +FLURBIPROFEN 0.03% OPHT SOLN 2.5 ML BTL ONE; +HYALURONIDASE/LIDOCAINE/BUPIVACAINE 5 ML SYR ONE; +IBUPROFEN 200 MG TAB ONE; +LACTG PO; +NEOMYCIN/POLYMYXIN/DEXAMETHASONE OPTH OINT 3.5 GM TUBE ONE; -NORC5TAB PO; +ONDANSETRON HCL 4 MG/2 ML VIAL IV PUSH ONE; -PANT20TA2 PO; +PHENYLEPHRINE HCL 2.5 % OPTH SOLN 15 ML BTL ONE; +PROPOFOL 200 MG/20 ML AMP IV ONE; +SODIUM CHLORIDE 0.9% INJ 10 ML ONE; +TETRACAINE 0.5% OPTH SOLN 15 ML BTL ONE; +TROPICAMIDE 1% OPHT SOLN 15 ML BTL ONE; -XIFA550T4 PO; +ceFAZolin INJ 1,000 MG VIAL ONE
--- NOTE | 2018-03-17 11:23 | MP ---
cc: Kumar Laboy MD DATE OF OPERATION: 03/06/2018 PREOPERATIVE DIAGNOSES: Proliferative diabetic retinopathy, traction, retinal detachment, vitreous hemorrhage, right eye. POSTOPERATIVE DIAGNOSES: Proliferative diabetic retinopathy, traction, retinal detachment, vitreous hemorrhage, right eye. PROCEDURE PERFORMED: Pars plana vitrectomy, membrane peeling, endolaser, gas fluid exchange, all right eye. ANESTHESIA: MAC. SURGEON: Kumar Laboy MD COMPLICATIONS: None. PROCEDURE IN DETAIL: After informed consent was obtained, the patient was given retrobulbar anesthesia in the preoperative area. He was then brought to the operating room, prepared and draped in the usual sterile fashion. A wire lid speculum was placed in the patient's right eye. A 270 degree conjunctival peritomy was then performed using 0.12 forceps and Domingo scissors. Excellent hemostasis was obtained with bipolar cautery. Scleral spence were then made 3 mm posterior to the corneoscleral limbus in the lower temporal, supratemporal and superonasal quadrants. A 6-0 Vicryl mattress suture was placed in the right lower temporal john. 23-gauge vitrectomy cannulas were then placed through these sites and an infusion cannula was placed lower temporally. There had been a previous vitrectomy performed. 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 A pick and intraocular forceps were used to peel these membranes. A complete air-fluid exchange was performed and eventual endolaser was placed inferiorly. Silicone oil was then used to fill the vitreous cavity. The two superior vitrectomy cannulas were removed and each site was closed with an interrupted 6-0 Vicryl suture. The infusion cannula was then removed and the mattress suture was tied up permanently. The conjunctiva were repaired using two interrupted 7-0 Vicryl sutures. Subconjunctival injections of dexamethasone and Ancef were placed. Atropine drops, Maxitrol and a patch and shield were then applied. The patient tolerated the procedure well. There were no complications. 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 [facility]. Kumar Laboy MD TAB/KD , 10:56 AM , 11:22 AM
== END | disposition home or self-care (01) ==
LOC: ESDC 14:11
PROVIDERS: ATTEND Ophthalmology Retina Specialist
DX: E11.3531 Type 2 diabetes mellitus with proliferative diabetic retinopathy with traction retinal detachment not involving the macula, right eye (principal); H43.11 Vitreous hemorrhage, right eye; Z79.84 Long term (current) use of oral hypoglycemic drugs
CPT/HCPCS: 00145; 67113; 82948; J0171; J0690; J1100; J2405; J3010